=== PATIENT | female | born 1930 | race Caucasian/White ===

== ENCOUNTER 2016-07-09 04:44 | Inpatient (IN) | payer BC, OTHER ==
[2016-07-09] MEDS ORDERED: morphine CARPU-JECT 2 MG/1 ML DISP.SYRIN IVPUSH ONE ×2 (05:00→06:04)
--- NOTE | 2016-07-09 05:07 | PDOC ---
History of Present Illness <James Cast - Last Filed: 07/09/16 06:47> - General History Source: Patient, Parent(s), Spouse () Exam Limitations: No Limitations - History of Present Illness Initial Comments: 07/09/16 05:13 The patient is a 85 year old female with significant past medical history of a- fib, CAD, s/p cardiac stents x2, CHF, hypertension, hyperlipidemia, diabetes, and CKD (MWF) who presents to the ED BIBA from home with s/p unwitnessed mechanical fall just prior to arrival. Patient reports she was going to the bathroom when she fell and now has complaints of pain to the right shoulder and right leg. She denies hitting her head or LOC. As per , at bedside, patient normally ambulates with a walker, however she did not use her walker to go to the bathroom. Patient is on coumadin, but is not sure if she is still taking her coumadin. The patient denies fever, diaphoresis, lightheadedness, chills, cough, SOB, chest pain, and palpitations. The patient denies abdominal pain, nausea, vomiting, and diarrhea. Allergies: codeine Social History: No alcohol, tobacco, or drug use reported. Past Surgical History: cataract removal (bilaterally), cholecystectomy, appendectomy, s/p cardiac stents x2, hernia repair (umbilical x2), hysterectomy , joint replacement (right knee) PCP: Dr. Ashish Collazo Cardio: Dr. Abraham Oh <Julisa Fitzgerald - Last Filed: 07/09/16 06:50> - General Chief Complaint: Bone Injury Stated Complaint: FALL Time Seen by Provider: 07/09/16 04:50 Past History - Past Medical History Anemia: Yes Asthma: No Cancer: No Cardiac Disorders: Yes CVA: No CHF: Yes Dementia: No Diabetes: Yes GI Disorders: Yes (colitis) Disorders: No HTN: Yes Hypercholesterolemia: Yes Liver Disease: No Suicide Attempt (Hx): No Seizures: No Thyroid Disease: No - Surgical History Abdominal Surgery: Yes (UMBILICAL HERNIA REPAIR) Appendectomy: Yes Cardiac Surgery: Yes (x2 stents April 2014) Cholecystectomy: Yes Lung Surgery: No Neurologic Surgery: No Orthopedic Surgery: Yes (Right knee replacement) - Immunization History Immunization Up to Date: No - Psycho/Social/Smoking Cessation Hx Anxiety: No Suicidal Ideation: No Smoking Status: No Smoking History: Never smoked Have you smoked in the past 12 months: No Number of Cigarettes Smoked Daily: 0 Information on smoking cessation initiated: No Hx Alcohol Use: No Drug/Substance Use Hx: No Substance Use Type: None Hx Substance Use Treatment: No <James Cast - Last Filed: 07/09/16 06:47> <Julisa Fitzgerald - Last Filed: 07/09/16 06:50> - Past Medical History Allergies/Adverse Reactions: Allergies Allergy/AdvReac Type Severity Reaction Status Date / Time codeine AdvReac Verified 07/09/16 04:57 Home Medications: Ambulatory Orders Atorvastatin Calcium [Lipitor] 10 mg PO HS 08/25/12 Cholecalciferol (Vitamin D3) [Vitamin D] 1,000 unit PO DAILY 08/25/12 Iron 28 mg PO Q2D 08/14/15 Loratadine [Claritin -] 10 mg PO DAILY PRN 08/14/15 Levemir Flextouch 8 units SQ HS 11/01/15 Aspirin [Ecotrin] 81 mg PO DAILY 07/09/16 Furosemide [Lasix] 80 mg PO DAILY 07/09/16 Tramadol HCl 50 mg PO HS PRN 07/09/16 Review of Systems - Review of Systems Able to Perform ROS?: Yes Comments:: 07/09/16 05:14 +right shoulder pain and right leg pain Absent: fever, diaphoresis, lightheadedness, chills, cough, SOB, syncope, chest pain, palpitations, abdominal pain, nausea, vomiting, and diarrhea <Julisa Fitzgerald - Last Filed: 07/09/16 06:50> *Physical Exam - Vital Signs Last Vital Signs Temp Pulse Resp BP Pulse Ox 97.5 F L 121 H 14 141/81 98 07/09/16 04:53 07/09/16 04:53 07/09/16 04:53 07/09/16 04:53 07/09/16 04:53 - Physical Exam General Appearance: Yes: Nourished, Appropriately Dressed, Apparent Distress (2/ 2 pain) HEENT: positive: Normal ENT Inspection Neck: positive: Supple. negative: Tender Respiratory/Chest: positive: Lungs Clear, Normal Breath Sounds. negative: Respiratory Distress Cardiovascular: positive: Tachycardia, Irregularly Irregular Gastrointestinal/Abdominal: positive: Normal Bowel Sounds, Soft. negative: Tender Musculoskeletal: positive: Normal Inspection. negative: Vertebral Tenderness Extremity: positive: Normal Capillary Refill, Normal Inspection, Tender (rt humerus and rt hip. rt lower ext shortened and externally rotated). negative: Normal Range of Motion Integumentary: positive: Normal Color. negative: Ecchymosis, Bruising Neurologic: positive: Fully Oriented, Alert, Normal Mood/Affect, Normal Response <James Cast - Last Filed: 07/09/16 06:47> - Vital Signs Last Vital Signs Temp Pulse Resp BP Pulse Ox 97.5 F L 121 H 14 141/81 98 07/09/16 04:53 07/09/16 04:53 07/09/16 04:53 07/09/16 04:53 07/09/16 04:53 <Julisa Fitzgerald - Last Filed: 07/09/16 06:50> Heart Score/ECG Review - ECG Impressions Comment:: 07/09/16 06:14 A-fib with rapid ventricular response @115bpm Incomplete RBBB Left anterior fascicular block Anterior infarct, age undetermined Abnormal ECG <Julisa Fitzgerald - Last Filed: 07/09/16 06:50> ED Treatment Course - LABORATORY CBC & Chemistry Diagram: 07/09/16 05:01 07/09/16 05:01 <James Cast - Last Filed: 07/09/16 06:47> - LABORATORY CBC & Chemistry Diagram: 07/09/16 05:01 07/09/16 05:01 - RADIOLOGY Radiograph Interpretation: 07/09/16 06:49 HIP/PELVIS Reviewed by Dr. Tyler: Right hip fracture - Medications Given in the ED: ED Medications Discontinued Medications Generic Name Dose Route Start Last Admin Trade Name Freq PRN Reason Stop Dose Admin Morphine Sulfate 2 mg 07/09/16 05:00 07/09/16 05:07 Morphine Injection - IVPUSH 07/09/16 05:01 2 mg ONCE ONE Administration <Julisa Fitzgerald - Last Filed: 07/09/16 06:50> Progress Note - Progress Note Progress Note: likely mult fx's pain control xrays labs <James Cast - Last Filed: 07/09/16 06:47> Medical Decision Making - Medical Decision Making 07/09/16 06:[address] Jorge Alberto Friend (via answering service) at 6:04 Awaiting call back 07/09/16 06:[address] Ministerio Lozoya covering for Dr. Ashish Collazo (via answering service) at 6:07, 6:16 (was told they will page in a couple of minutes since it has not been 15 minutes since the last call), 6:40 Awaiting call back Patient's case discussed with Dr. Ministerio Lozoya at 6:45 <Julisa Fitzgerald - Last Filed: 07/09/16 06:50> *DC/Admit/Observation/Transfer - Discharge Dispostion Admit: Yes <James Cast - Last Filed: 07/09/16 06:47> - Attestations Scribe Attestion: 07/09/16 05:14 Documentation prepared by Julisa Fitzgerald, acting as medical billing clerk for James Cast MD <Julisa Fitzgerald - Last Filed: 07/09/16 06:50> Diagnosis at time of Disposition: Hip fracture Qualifiers: Encounter type: initial encounter Fracture type: closed Laterality: right Qualified Code(s): S72.001A - Fracture of unspecified part of neck of right femur, initial encounter for closed fracture - Discharge Dispostion Disposition: HOME - Referrals Referrals: Ashish Collazo MD [Primary Care Provider] -
[2016-07-09] MEDS ORDERED: SODIUM CHLORIDE 1,000 ML IV SCH (05:15)
[2016-07-09 05:36] LABS: BASOPHIL 0.7 % (0-2.0); EOSINOPHIL 0.4 % (0-4.5); MCH 33.4 pg (25.7-33.7); MCHC 32.6 g/dl (32.0-36.0); MEAN CELL VOLUME 102.6 fl (80-96); MEAN PLT VOLUME 8.6 fl (7.5-11.1); NEUTROPHILS 83.4 % (42.8-82.8); PLATELET COUNT 302 K/MM3 (134-434); RDW 15.2 % (11.6-15.6)
[2016-07-09 05:51] LABS: INR 1.11 (0.82-1.09); PROTHROMBIN TIME (PATIENT) 12.2 SEC (9.98-11.88)
[2016-07-09] MEDS ORDERED: morphine CARPU-JECT 2 MG/1 ML DISP.SYRIN ONE (05:55)
[2016-07-09 05:56] LABS: CREATININE 3.7 mg/dL (0.55-1.02)
[2016-07-09] MEDS ORDERED: HYDROmorphone HCL CARPU-JECT 1 MG/1 ML DISP.SYRIN IVPUSH ONE (07:14)
[2016-07-09] MEDS ORDERED: HYDROmorphone HCL CARPU-JECT 1 MG/1 ML DISP.SYRIN ONE (07:17)
[2016-07-09 09:08] VITALS: BMI 33.4
[2016-07-09] MEDS ORDERED: ONDANSETRON 4 MG/2 ML VIAL IVPB PRN (09:22)
[2016-07-09] MEDS ORDERED: ACETAMINOPHEN 325 MG TABLET (FP) PO PRN (09:22)
[2016-07-09] MEDS ORDERED: LORATADINE 10 MG TABLET PO PRN (09:22)
[2016-07-09] MEDS: FUROSEMIDE 40 MG TABLET (FP) PO SCH (10:28)
[2016-07-09] MEDS: HEPARIN NA (PORCINE) 5,000 UNITS/ML 1ML VIAL SQ SCH ×2 (10:28→17:27)
[2016-07-09] MEDS: DOCUSATE SODIUM 100 MG CAPSULE (FP) PO SCH ×2 (10:29→21:51)
[2016-07-09] MEDS: CHOLECALCIFEROL (VITAMIN D3) 1,000 UNIT TABLET (FP) PO SCH (10:29)
[2016-07-09] MEDS: HYDROmorphone HCL CARPU-JECT 1 MG/1 ML DISP.SYRIN IVPUSH PRN ×3 (10:29→23:17)
[2016-07-09] MEDS: POLYETHYLENE GLYCOL 3350 119 GM BTL PO SCH (11:12)
[2016-07-09] MEDS ORDERED: INSULIN (NOVOLOG) ASPART 100 UNITS/ML 10ML VIAL ONE ×3 (11:19→21:54)
[2016-07-09] MEDS: INSULIN SLIDING SCALE (NOVOLOG) 1 VIAL SQ SCH ×3 (11:20→21:57)
--- NOTE | 2016-07-09 11:30 | HP ---
Admitting History and Physical - Primary Care Physician PCP: Ashish Collazo - Admission Chief Complaint: I fell History of Present Illness: Mrs Mcdonnell is an 85 year old female who comes in after having a fall. She says she was in her normal state of health and was having no new complaints. She was up reading last night and went to use the restroom before going to bed. She normal ambulates with a walker for long distance but says she can walk from her bedroom to the bathroom without a walker. As she was walking she fell. She was not dizzy or lightheaded. She did not pass out. She did not trip over anything. She states she just fell and hit her right side. After the fall she had a lot of pain in both her right arm and her right leg. She came in for further evaluation. She denies hitting her head. She has not had chest pain. She is chronically short of breath on exertion and this has not worsened. She is not having abdominal pain, nausea, or vomiting. She denies constipation or diarrhea. She has chronic leg swelling which is also unchanged. She says her pain is better controlled but still present. History Source: Patient Limitations to Obtaining History: No Limitations - Past Medical History Cardiovascular: Yes: AFIB, CAD, CHF, HTN, Hyperlipdemia Pulmonary: Yes: Sleep Apnea Renal/: Yes: Renal Failure, Renal Inusuff Heme/Onc: Yes: Anemia Rheumatology: Yes: Gout Endocrine: Yes: Diabetes Mellitus - Past Surgical History Past Surgical History: Yes: Cataract Removal (bilaterally), Cholecystectomy, Hernia Repair (umbilical x2), Hysterectomy, Joint Replacement (rightj knee) - Advance Directives Advance Directives: Yes: Living Will - Smoking History Smoking history: Never smoked Have you smoked in the past 12 months: No Aproximately how many cigarettes per day: 0 - Alcohol/Substance Use Hx Alcohol Use: No History of Substance Use: reports: None - Social History Usual Living Arrangement: Yes: With Spouse ADL: Independent Occupation: former housewife, , 4 daughters History of Recent Travel: No Home Medications - Allergies Allergies/Adverse Reactions: Allergies Allergy/AdvReac Type Severity Reaction Status Date / Time codeine AdvReac Verified 07/09/16 04:57 - Home Medications Home Medications: Ambulatory Orders Atorvastatin Calcium [Lipitor] 10 mg PO HS 08/25/12 Cholecalciferol (Vitamin D3) [Vitamin D] 1,000 unit PO DAILY 08/25/12 Iron 28 mg PO Q2D 08/14/15 Loratadine [Claritin -] 10 mg PO DAILY PRN 08/14/15 Levemir Flextouch 8 units SQ HS 11/01/15 Aspirin [Ecotrin] 81 mg PO DAILY 07/09/16 Furosemide [Lasix] 80 mg PO DAILY 07/09/16 Tramadol HCl 50 mg PO HS PRN 07/09/16 Family Disease History - Family Disease History Family History: Unremarkable Review of Systems Findings/Remarks: Full review of systems obtained, as per HPI and otherwise negative Physical Examination Vital Signs: Vital Signs Temperature 97.3 F L 07/09/16 06:48 Pulse Rate 112 H 07/09/16 08:10 Respiratory Rate 19 07/09/16 08:10 Blood Pressure 128/100 07/09/16 08:10 O2 Sat by Pulse Oximetry (%) 97 07/09/16 08:10 Constitutional: Yes: No Distress, Calm, Obese Cardiovascular: Yes: Regular Rate and Rhythm. No: Gallop, Murmur, Rub Respiratory: Yes: Regular, CTA Bilaterally. No: Rales, Rhonchi, Wheezes Gastrointestinal: Yes: Normal Bowel Sounds, Distention. No: Tenderness Extremities: Yes: WNL Edema: Yes Edema: LLE: 1+, RLE: 1+ Labs: Laboratory Results - last 24 hr 07/09/16 07/09/16 07/09/16 05:01 05:01 05:01 WBC 15.0 H D RBC 3.87 Hgb 12.9 D Hct 39.7 D MCV 102.6 H MCHC 32.6 RDW 15.2 D Plt Count 302 D MPV 8.6 Neutrophils % 83.4 H Lymphocytes % 8.9 D Monocytes % 6.6 Eosinophils % 0.4 D Basophils % 0.7 INR 1.11 Sodium 132 L Potassium 5.2 H Chloride 93 L Carbon Dioxide 24 Anion Gap 15 BUN 25 H D Creatinine 3.7 H POC Glucometer Random Glucose 228 H D Calcium 9.0 07/09/16 11:15 WBC RBC Hgb Hct MCV MCHC RDW Plt Count MPV Neutrophils % Lymphocytes % Monocytes % Eosinophils % Basophils % INR Sodium Potassium Chloride Carbon Dioxide Anion Gap BUN Creatinine POC Glucometer 191 Random Glucose Calcium Imaging - Results Chest X-ray: Report Reviewed, Image Reviewed X-ray: Report Reviewed Problem List - Problems (1) Hip fracture Assessment/Plan: -patient with mechanical fall and hip fracture -no head trauma or passing out -case d/w nephrology, will have short dialysis today -cardiology to see for clearance -medically stable for surgery -ortho consulted Code(s): S72.009A - FRACTURE OF UNSP PART OF NECK OF UNSP FEMUR, INIT Qualifiers: Encounter type: initial encounter Fracture type: closed Laterality : right Qualified Code(s): S72.001A - Fracture of unspecified part of neck of right femur, initial encounter for closed fracture (2) (HFpEF) heart failure with preserved ejection fraction Assessment/Plan: -continue lasix -chronic leg edema unchanged -chest x-ray clear -HD today Code(s): I50.9 - HEART FAILURE, UNSPECIFIED (3) Bilateral leg edema Assessment/Plan: -stable Code(s): R60.0 - LOCALIZED EDEMA (4) Diabetes Assessment/Plan: -currently npo -when eating, diabetic/renal diet -continue SSI Code(s): E11.9 - TYPE 2 DIABETES MELLITUS WITHOUT COMPLICATIONS (5) HTN (hypertension) Assessment/Plan: -well controlled -continue lasix Code(s): I10 - ESSENTIAL (PRIMARY) HYPERTENSION (6) Hyperkalemia Assessment/Plan: -planning for HD -nephrology following Code(s): E87.5 - HYPERKALEMIA (7) End stage renal failure on dialysis Assessment/Plan: -continue HD per nephrology Code(s): N18.6 - END STAGE RENAL DISEASE Z99.2 - DEPENDENCE ON RENAL DIALYSIS (8) Obesity Code(s): E66.9 - OBESITY, UNSPECIFIED Qualifiers: Obesity severity: morbid
--- NOTE | 2016-07-09 11:43 | CONSULT ---
Consult - text type - Consultation Consultation Note: Renal Consult for ESRD This is a 85 year old woman with PMhx of ESRD on HD (MWF), Afib on A/C, HTN, CAD s/p stents, CHF, DM who presented s/p fall with multiple fractures. Pt states that she was trying to walk without her walker at home when she tripped and fell. Denies any LOC, dizziness, lightheadedness. No chest pain or sob. Last dialysis was Friday w/o complication. Currently reports pain in arm and LE. No fever or chills. K noted to 5.2 today despite dialysis yesterday. PMhx:as above Allergies: NKDA Family Hx: NC Social Hx: No T/A/D ROS: As per HPI, all other pertinent ros negative Home Meds: Medication Instructions Recorded Atorvastatin Calcium [Lipitor] 10 mg PO HS 08/25/12 Cholecalciferol (Vitamin D3) 1,000 unit PO DAILY 08/25/12 [Vitamin D] Iron 28 mg PO Q2D 08/14/15 Loratadine [Claritin -] 10 mg PO DAILY PRN 08/14/15 Levemir Flextouch 8 units SQ HS 11/01/15 Aspirin [Ecotrin] 81 mg PO DAILY 07/09/16 Furosemide [Lasix] 80 mg PO DAILY 07/09/16 Tramadol HCl 50 mg PO HS PRN 07/09/16 Vital Signs Temperature 98 F 07/09/16 19:05 Pulse Rate 101 H 07/09/16 19:05 Respiratory Rate 21 07/09/16 19:05 Blood Pressure 125/64 07/09/16 19:05 O2 Sat by Pulse Oximetry (%) 97 07/09/16 09:48 Gen: NAD, awake and alert HEENT: NC/AT, MMM, No JVD CVS: irregular, no M/R Lungs: Dec BS Lung bases, no rales Abd: soft NT/ND Ext: Trace to 1+ edema in LE Neuro: AAOX3, no focal defects Access: Left ARM AVF CBC, BMP 07/09/16 05:01 07/09/16 05:01 Current Medications Acetaminophen (Tylenol -) 650 mg PO Q4H PRN PRN Reason: FEVER OR PAIN Atorvastatin Calcium (Lipitor -) 10 mg PO HS [facility] Last Admin: 07/09/16 21:51 Dose: 10 mg Cholecalciferol (Vitamin D3 -) 1,000 unit PO DAILY [facility] Last Admin: 07/09/16 10:29 Dose: 1,000 unit Docusate Sodium (Colace -) 100 mg PO BID [facility] Last Admin: 07/09/16 21:51 Dose: 100 mg Furosemide (Lasix -) 80 mg PO DAILY [facility] Last Admin: 07/09/16 10:28 Dose: 80 mg Heparin Sodium (Porcine) (Heparin -) 5,000 unit SQ Q8H-IV [facility] Last Admin: 07/09/16 17:27 Dose: 5,000 unit Hydromorphone HCl (Dilaudid Injection -) 1 mg IVPUSH Q4H PRN PRN Reason: PAIN Last Admin: 07/09/16 14:24 Dose: 1 mg Insulin Aspart (Novolog Vial Sliding Scale -) 0 vial SQ ACHS DREW PRN Reason: Protocol Last Admin: 07/09/16 21:57 Dose: 3 unit Loratadine (Claritin -) 10 mg PO DAILY PRN PRN Reason: allergy Ondansetron HCl (Zofran Injection) 4 mg IVPB Q6H PRN PRN Reason: NAUSEA Polyethylene Glycol (Miralax (For Daily Use) -) 17 gm PO DAILY [facility] Last Admin: 07/09/16 11:12 Dose: Not Given A/P 85 year old woman with PMhx of ESRD on HD (MWF), Afib on A/C, HTN, CAD s/p stents, CHF, DM who presented s/p fall with multiple fractures. #Intertrochanteric hip fx/Humerus Fracture Surgical intervention as per Ortho Pain control #ESRD on HD Additional HD today to manage K and Volume status in aticipation of surgery Will plan for additional HD following Sx tomorrow depending on time of suregery and clinical need #CKD Related Anemia Hgb at goal Trend CBC post Sx #CHF/CAD/Afib Pt with mild volume expansion UF with HD as tolerated Pre-surgical clearance as per cardiology Thank you Will follow Massimo Shepard DO a-fib, CAD, s/p cardiac stents x2, CHF, hypertension, hyperlipidemia, diabetes, and CKD (MWF)
--- NOTE | 2016-07-09 11:53 | CON.CARD ---
Cardiology Consult (text) - Consultation Consultation Note: CC: Pre-operative clearance HPI: 85 yo with CAD s/p AZUL to RCA '14, Afib on eliquis, dCHF, HTN, HL, IDDM, GEORGE declines CPAP and CKD on HD who presents s/p fall c/b hip fracture. Per report, unwitnessed mechanical fall while not using walker. She denied hitting her head or LOC. No h/o CVA/TIA, Cannot walk up a flight of stairs. chronic LE stable No orthopnea, pnd, cp, sob, palps, dizziness, bleeding, transient neurologic symptoms. PMHx: Per HPI, Psurg Hx: Cataract Removal (bilaterally), Cholecystectomy, Hernia Repair ( umbilical x2), Hysterectomy, Joint Replacement (right knee) Social hx: NO alcohol or illicits. Not using tobacco. Fam Hx: uncle with sCD. ROS: Per HPI. Additionally, no n/v/d, no headache, no fever/chills/sweats, no bleeding. no cough + chronic LE erythema. Ambulatory Orders Atorvastatin Calcium [Lipitor] 10 mg PO HS 08/25/12 Cholecalciferol (Vitamin D3) [Vitamin D] 1,000 unit PO DAILY 08/25/12 Iron 28 mg PO Q2D 08/14/15 Loratadine [Claritin -] 10 mg PO DAILY PRN 08/14/15 Levemir Flextouch 8 units SQ HS 11/01/15 Aspirin [Ecotrin] 81 mg PO DAILY 07/09/16 Furosemide [Lasix] 80 mg PO DAILY 07/09/16 Tramadol HCl 50 mg PO HS PRN 07/09/16 Current Medications Acetaminophen (Tylenol -) 650 mg PO Q4H PRN PRN Reason: FEVER OR PAIN Atorvastatin Calcium (Lipitor -) 10 mg PO HS [facility] Cholecalciferol (Vitamin D3 -) 1,000 unit PO DAILY [facility] Last Admin: 07/09/16 10:29 Dose: 1,000 unit Docusate Sodium (Colace -) 100 mg PO BID [facility] Last Admin: 07/09/16 10:29 Dose: 100 mg Furosemide (Lasix -) 80 mg PO DAILY [facility] Last Admin: 07/09/16 10:28 Dose: 80 mg Heparin Sodium (Porcine) (Heparin -) 5,000 unit SQ Q8H-IV [facility] Last Admin: 07/09/16 10:28 Dose: 5,000 unit Hydromorphone HCl (Dilaudid Injection -) 1 mg IVPUSH Q4H PRN PRN Reason: PAIN Last Admin: 07/09/16 10:29 Dose: 1 mg Insulin Aspart (Novolog Vial Sliding Scale -) 0 vial SQ ACHS DREW PRN Reason: Protocol Last Admin: 07/09/16 11:20 Dose: 1 unit Loratadine (Claritin -) 10 mg PO DAILY PRN PRN Reason: allergy Ondansetron HCl (Zofran Injection) 4 mg IVPB Q6H PRN PRN Reason: NAUSEA Polyethylene Glycol (Miralax (For Daily Use) -) 17 gm PO DAILY [facility] Last Admin: 07/09/16 11:12 Dose: Not Given Vital Signs - 24 hr 07/09/16 07/09/16 07/09/16 04:53 06:15 08:10 Temperature 97.5 F L Pulse Rate 121 H Pulse Rate [ 112 H Right Radial] Respiratory 14 19 Rate Blood Pressure 141/81 Blood Pressure 128/100 [Left Arm] O2 Sat by Pulse 98 99 97 Oximetry (%) 07/09/16 09:48 Temperature 97.3 F L Pulse Rate 110 H Pulse Rate [ Right Radial] Respiratory 20 Rate Blood Pressure 127/82 Blood Pressure [Left Arm] O2 Sat by Pulse 97 Oximetry (%) Intake & Output 07/07/16 07/08/16 07/09/16 07/10/16 07:59 07:59 07:59 07:59 Weight 188 lb 11.2 oz NAD. calm JVD difficult to assess due to neck habitus, but does not appear elevated RRR nl S1 S2. No S3, S4 or mrg No carotid bruits Trace bibasilar rales, nl effort + BS, soft, obese, ND, NT Diminished DP/PT erythematous/indurated Venous stasis changes with trace -1+ LE edema, warm ext No jaundic, no diaphoresis. CBC, BMP 07/09/16 05:01 07/09/16 05:01 EKG: afib 115 bpm. LAD. LAFB. incomplete RBBB. poor r wave progression. echo 60057: nl lv/rv. mild lae. valves wnl. no rvsp. A/p 85 yo with CAD s/p AZUL to RCA '14, Afib on eliquis, dCHF, HTN, HL, IDDM, GEORGE declines CPAP and CKD on HD who presents s/p fall c/b hip fracture. Pre-operative clearance - Stable from CV perspective, no further testing needed prior to surgery. High risk for scott-operative CV complications based on RCRI and poor functional status. Patient counseled on risk. If proceeds with surgery recommend close scott-operative monitoring. Limit IVF. Ok to hold AC without bridging. CAD s/p AZUL to RCA in 03/2014 - on statin. not on ASA b/c of hi risk gib and on AC. - no anginal symptoms. Afib - off AV alexandr blockade in setting of profound bradycardia 2/2 hyperkalemia. HR currently mildly elevated. If remains elevated and need to consider rate control will need telemetry monitoring . Pain control per pmd/surgery. - holding eliquis for possible surgery. - hyperkalemia mgm't per renal HFPEF, chronic venous insuff: - management of volume per renal/HD. Con't lasix HTN - BP controlled off anti-hypertensives HL: - statin ESRD on HD/hyperkalemia - volume mgm't with HD per renal. GEORGE on CPAP - stable
--- NOTE | 2016-07-09 14:41 | PN ---
Progress Note (short form) - Note Progress Note: Pt seen, getting dialysis, s/p fall this morning, cannot ambulate, c/o pain right hip. PE RLE is shortened and externally rotated NVI Limited ROM bc of pain Xrays Show a displaced 3/4 part right femur intertrochanteric hip fx Imp R IT fx Rec Medical clearance NPO after midnight tonight Surgery tomorrow if cleared, R Gamma nail
[2016-07-09] MEDS ORDERED: ATORVASTATIN CA 10 MG TABLET (FP) PO SCH (22:00)
--- NOTE | 2016-07-09 23:20 | EKG ---
Test Reason : Blood Pressure : / mmHG Vent. Rate : 115 BPM Atrial Rate : 110 BPM P-R Int : 000 ms QRS Dur : 118 ms QT Int : 354 ms P-R-T Axes : 000 -83 020 degrees QTc Int : 489 ms ATRIAL FIBRILLATION WITH RAPID VENTRICULAR RESPONSE INCOMPLETE RIGHT BUNDLE BRANCH BLOCK LEFT ANTERIOR FASCICULAR BLOCK POOR R WAVE PROGRESSION ABNORMAL ECG WHEN COMPARED WITH ECG OF 15-AUG-2015 08:34, VENT. RATE HAS INCREASED BY 55 BPM T WAVE VARIATION Confirmed by ADRIAN GALDAMEZ MD ([id number]) on 07/09/2016 11:19:49 PM Referred By: Confirmed By:ADRIAN GALDAMEZ MD
[2016-07-10] MEDS: HEPARIN NA (PORCINE) 5,000 UNITS/ML 1ML VIAL SQ SCH ×2 (02:51→10:00)
[2016-07-10] MEDS: HYDROmorphone HCL CARPU-JECT 1 MG/1 ML DISP.SYRIN IVPUSH PRN ×2 (06:15→10:14)
[2016-07-10] MEDS: INSULIN SLIDING SCALE (NOVOLOG) 1 VIAL SQ SCH ×4 (06:26→22:02)
[2016-07-10 08:10] LABS: WHITE BLOOD COUNT 12.6 K/mm3 (4.0-10.0)
[2016-07-10 08:11] LABS: BASOPHIL 0.7 % (0-2.0); EOSINOPHIL 0.8 % (0-4.5); MCH 34.1 pg (25.7-33.7); MCHC 32.7 g/dl (32.0-36.0); MEAN CELL VOLUME 104.3 fl (80-96); MEAN PLT VOLUME 8.4 fl (7.5-11.1); NEUTROPHILS 77.5 % (42.8-82.8); PLATELET COUNT 242 K/MM3 (134-434)
[2016-07-10 08:23] LABS: INR 1.18 (0.82-1.09)
[2016-07-10 09:13] LABS: CALCIUM 9.2 mg/dL (8.5-10.1); CREATININE 3.2 mg/dL (0.55-1.02); MAGNESIUM 1.8 mg/dL (1.8-2.4); PHOSPHOROUS 4.7 mg/dL (2.5-4.9)
[2016-07-10] MEDS: FUROSEMIDE 40 MG TABLET (FP) PO SCH (10:00)
[2016-07-10] MEDS: CHOLECALCIFEROL (VITAMIN D3) 1,000 UNIT TABLET (FP) PO SCH (10:00)
[2016-07-10] MEDS: POLYETHYLENE GLYCOL 3350 119 GM BTL PO SCH (10:00)
[2016-07-10] MEDS: DOCUSATE SODIUM 100 MG CAPSULE (FP) PO SCH ×2 (10:00→22:02)
--- NOTE | 2016-07-10 11:36 | PN ---
Progress Note (short form) - Note Progress Note: Renal Follow up for ESRD on HD Pt seen and examined at the bedside s/p short dialysis yesterday with UF of 1 kg for OR today K is 5.2 pt without any acute complaints Vital Signs Temperature 97.4 F L 07/10/16 09:34 Pulse Rate 100 H 07/10/16 09:34 Respiratory Rate 20 07/10/16 09:34 Blood Pressure 134/53 07/10/16 09:34 O2 Sat by Pulse Oximetry (%) 98 07/10/16 09:00 Intake & Output 07/07/16 07/08/16 07/09/16 07/10/16 23:59 23:59 23:59 23:59 Intake Total 100 0 Output Total 0 Balance 100 0 Weight 188 lb 11.2 oz 186 lb Gen: NAD, awake and alert CVS: irregular, no M/R Lungs: Dec BS Lung bases, no rales Abd: soft NT/ND Ext: Trace to 1+ edema in LE Access: Left ARM AVF CBC, BMP 07/10/16 07:40 07/10/16 07:40 Current Medications Acetaminophen (Tylenol -) 650 mg PO Q4H PRN PRN Reason: FEVER OR PAIN Atorvastatin Calcium (Lipitor -) 10 mg PO HS [facility] Last Admin: 07/09/16 21:51 Dose: 10 mg Cholecalciferol (Vitamin D3 -) 1,[address] [facility] Last Admin: 07/10/16 10:00 Dose: Not Given Docusate Sodium (Colace -) 100 mg PO BID [facility] Last Admin: 07/10/16 10:00 Dose: Not Given Furosemide (Lasix -) 80 mg PO DAILY [facility] Last Admin: 07/10/16 10:00 Dose: Not Given Heparin Sodium (Porcine) (Heparin -) 5,000 unit SQ Q8H-IV [facility] Last Admin: 07/10/16 10:00 Dose: Not Given Hydromorphone HCl (Dilaudid Injection -) 1 mg IVPUSH Q4H PRN PRN Reason: PAIN Last Admin: 07/10/16 10:14 Dose: 1 mg Insulin Aspart (Novolog Vial Sliding Scale -) 0 vial SQ ACHS DREW PRN Reason: Protocol Last Admin: 07/10/16 11:23 Dose: Not Given Loratadine (Claritin -) 10 mg PO DAILY PRN PRN Reason: allergy Ondansetron HCl (Zofran Injection) 4 mg IVPB Q6H PRN PRN Reason: NAUSEA Polyethylene Glycol (Miralax (For Daily Use) -) 17 gm PO DAILY [facility] Last Admin: 07/10/16 10:00 Dose: Not Given A/P 85 year old woman with PMhx of ESRD on HD (MWF), Afib on A/C, HTN, CAD s/p stents, CHF, DM who presented s/p fall with multiple fractures. #Intertrochanteric hip fx/Humerus Fracture Surgical intervention as per Ortho Pain control #ESRD on HD Will arrange for short Hd today for furhter management of mild hyperkalemia UF 1-1.5L as tolerated #CKD Related Anemia Hgb at goal Trend CBC post Sx Massimo Melissa DO
--- NOTE | 2016-07-10 12:29 | PN ---
Progress Note, Physician Chief Complaint: Ms Mcdonnell is still with pain in her right arm and leg. Otherwise she is without complaint. She denies cp, sob, n/v. - Current Medication List Current Medications: Active Medications Acetaminophen (Tylenol -) 650 mg PO Q4H PRN PRN Reason: FEVER OR PAIN Atorvastatin Calcium (Lipitor -) 10 mg PO HS [facility] Last Admin: 07/09/16 21:51 Dose: 10 mg Cholecalciferol (Vitamin D3 -) 1,000 unit PO DAILY [facility] Last Admin: 07/10/16 10:00 Dose: Not Given Docusate Sodium (Colace -) 100 mg PO BID [facility] Last Admin: 07/10/16 10:00 Dose: Not Given Furosemide (Lasix -) 80 mg PO DAILY [facility] Last Admin: 07/10/16 10:00 Dose: Not Given Heparin Sodium (Porcine) (Heparin -) 5,000 unit SQ Q8H-IV [facility] Last Admin: 07/10/16 10:00 Dose: Not Given Hydromorphone HCl (Dilaudid Injection -) 1 mg IVPUSH Q4H PRN PRN Reason: PAIN Last Admin: 07/10/16 10:14 Dose: 1 mg Insulin Aspart (Novolog Vial Sliding Scale -) 0 vial SQ ACHS DREW PRN Reason: Protocol Last Admin: 07/10/16 11:23 Dose: Not Given Loratadine (Claritin -) 10 mg PO DAILY PRN PRN Reason: allergy Ondansetron HCl (Zofran Injection) 4 mg IVPB Q6H PRN PRN Reason: NAUSEA Polyethylene Glycol (Miralax (For Daily Use) -) 17 gm PO DAILY [facility] Last Admin: 07/10/16 10:00 Dose: Not Given - Objective Vital Signs: Vital Signs Temperature 97.4 F L 07/10/16 09:34 Pulse Rate 95 H 07/10/16 11:20 Respiratory Rate 18 07/10/16 11:20 Blood Pressure 97/60 07/10/16 11:20 O2 Sat by Pulse Oximetry (%) 98 07/10/16 09:00 Constitutional: Yes: No Distress, Calm, Obese Cardiovascular: Yes: Regular Rate and Rhythm. No: Gallop, Murmur, Rub Respiratory: Yes: Regular, CTA Bilaterally. No: Rales, Rhonchi, Wheezes Gastrointestinal: Yes: Normal Bowel Sounds, Distention. No: Tenderness Extremities: Yes: WNL Edema: Yes Edema: LLE: 1+, RLE: 1+ Labs: CBC, BMP 07/10/16 07:40 07/10/16 07:40 INR, PTT INR 1.18 (0.82-1.09) H 07/10/16 07:40 Problem List - Problems (1) Hip fracture Code(s): S72.009A - FRACTURE OF UNSP PART OF NECK OF UNSP FEMUR, INIT Qualifiers: Encounter type: initial encounter Fracture type: closed Laterality : right Qualified Code(s): S72.001A - Fracture of unspecified part of neck of right femur, initial encounter for closed fracture (2) (HFpEF) heart failure with preserved ejection fraction Code(s): I50.9 - HEART FAILURE, UNSPECIFIED (3) Bilateral leg edema Code(s): R60.0 - LOCALIZED EDEMA (4) Diabetes Code(s): E11.9 - TYPE 2 DIABETES MELLITUS WITHOUT COMPLICATIONS (5) HTN (hypertension) Code(s): I10 - ESSENTIAL (PRIMARY) HYPERTENSION (6) Hyperkalemia Code(s): E87.5 - HYPERKALEMIA (7) End stage renal failure on dialysis Code(s): N18.6 - END STAGE RENAL DISEASE Z99.2 - DEPENDENCE ON RENAL DIALYSIS (8) Obesity Code(s): E66.9 - OBESITY, UNSPECIFIED Qualifiers: Obesity severity: morbid Assessment/Plan (1) Hip fracture Assessment/Plan: -planning for surgery today Code(s): S72.009A - FRACTURE OF UNSP PART OF NECK OF UNSP FEMUR, INIT Qualifiers: Encounter type: initial encounter Fracture type: closed Laterality : right Qualified Code(s): S72.001A - Fracture of unspecified part of neck of right femur, initial encounter for closed fracture (2) (HFpEF) heart failure with preserved ejection fraction Assessment/Plan: -continue lasix -chronic leg edema unchanged -chest x-ray clear -HD today Code(s): I50.9 - HEART FAILURE, UNSPECIFIED (3) Bilateral leg edema Assessment/Plan: -stable Code(s): R60.0 - LOCALIZED EDEMA (4) Diabetes Assessment/Plan: -currently npo -when eating, diabetic/renal diet -continue SSI Code(s): E11.9 - TYPE 2 DIABETES MELLITUS WITHOUT COMPLICATIONS (5) HTN (hypertension) Assessment/Plan: -well controlled -continue lasix Code(s): I10 - ESSENTIAL (PRIMARY) HYPERTENSION (6) Hyperkalemia Assessment/Plan: -having HD today to optimize for surgery -nephrology following and case discussed Code(s): E87.5 - HYPERKALEMIA (7) End stage renal failure on dialysis Assessment/Plan: -continue HD per nephrology Code(s): N18.6 - END STAGE RENAL DISEASE Z99.2 - DEPENDENCE ON RENAL DIALYSIS (8) Obesity Code(s): E66.9 - OBESITY, UNSPECIFIED Qualifiers: Obesity severity: morbid
[2016-07-10] MEDS ORDERED: MIDAZOLAM HCL 2 MG/2 ML SINGLE DOSE VIAL ONE (14:47)
[2016-07-10] MEDS ORDERED: LACTATED RINGERS SOLUTION 1,000 ML IV SCH ×3 (15:00→19:30)
[2016-07-10] MEDS ORDERED: PROPOFOL 20 ML ONE (15:21)
[2016-07-10] MEDS ORDERED: ceFAZolin SODIUM 1 GM VIAL ONE (15:32)
[2016-07-10] MEDS ORDERED: ceFAZolin SODIUM 1 GM VIAL IVPB ONE (15:35)
[2016-07-10] MEDS ORDERED: ONDANSETRON 4 MG/2 ML VIAL ONE (16:05)
--- NOTE | 2016-07-10 16:13 | OP ---
Operative Note - Note: Operative Date: 07/10/16 Pre-Operative Diagnosis: right femur intertrochanteric fracture Operation: right Gamma nail, intramedullary nail Implants: Mooes Gamma 3 Titanium IM elisa, 85mm lag screw, 37.5mm set screw Surgeon: Jorge Alberto Friend Sheet Metal Duct Installer Apprentice: London Wood Anesthesiologist/SUPPLIER ENGINEER: Yanet Vieira Anesthesia: General Estimated Blood Loss (mls): 25 Drains, Volume Out (mls): 0 Blood Volume Replaced (mls): 0 Fluid Volume Replaced (mls): 500 Operative Report Dictated: Yes
[2016-07-10] MEDS ORDERED: LORATADINE 10 MG TABLET PO PRN (16:54)
[2016-07-10] MEDS ORDERED: HYDROmorphone HCL CARPU-JECT 1 MG/1 ML DISP.SYRIN IVPUSH PRN (16:54)
[2016-07-10] MEDS: HYDROmorphone HCL CARPU-JECT 1 MG/1 ML DISP.SYRIN IVPB PRN ×2 (18:02→22:59)
[2016-07-10] MEDS: CEFAZOLIN 2 GM/D5W 50 ML IVPB SCH (18:20)
[2016-07-10] MEDS: ATORVASTATIN CA 10 MG TABLET (FP) PO SCH (22:02)
[2016-07-10] MEDS ORDERED: INSULIN (NOVOLOG) ASPART 100 UNITS/ML 10ML VIAL ONE (22:46)
[2016-07-10] MEDS ORDERED: CEFAZOLIN 2 GM/D5W 50 ML IVPB SCH (23:00)
[2016-07-11 00:08] LABS: HEP B SURFACE AB Non Reactive (.)
[2016-07-11] MEDS: CEFAZOLIN 2 GM/D5W 50 ML IVPB SCH ×2 (04:27→09:36)
[2016-07-11] MEDS: INSULIN SLIDING SCALE (NOVOLOG) 1 VIAL SQ SCH ×4 (06:29→21:25)
[2016-07-11 08:21] LABS: BASOPHIL 1.2 % (0-2.0); EOSINOPHIL 0.4 % (0-4.5); MCHC 32.9 g/dl (32.0-36.0); MEAN CELL VOLUME 103.4 fl (80-96); MEAN PLT VOLUME 8.4 fl (7.5-11.1); NEUTROPHILS 78.5 % (42.8-82.8); PLATELET COUNT 203 K/MM3 (134-434); RDW 14.6 % (11.6-15.6); WHITE BLOOD COUNT 13.3 K/mm3 (4.0-10.0)
[2016-07-11 08:39] LABS: CALCIUM 8.8 mg/dL (8.5-10.1); CREATININE 3.4 mg/dL (0.55-1.02); MAGNESIUM 1.7 mg/dL (1.8-2.4); PHOSPHOROUS 4.6 mg/dL (2.5-4.9)
--- NOTE | 2016-07-11 08:40 | OP ---
DATE OF OPERATION: 07/10/2016 PREOPERATIVE DIAGNOSIS: Right hip intertrochanteric fracture. POSTOPERATIVE DIAGNOSIS: Right hip intertrochanteric fracture. PROCEDURE: Right hip Gamma nail/intramedullary elisa. SURGEON: Jason Garcia MD TISSUE SPECIALIST: SATISH Chavez ANESTHESIOLOGIST: Yanet Vieira DO ANESTHESIA: LMA. DRAINS: None. COMPLICATIONS: None. BLOOD LOSS: Minimal. BLOOD GIVEN: None. FLUID REPLACEMENT: 500 mL. INDICATIONS: This patient is an 85-year-old female who sustained a right hip displaced intertrochanteric femur fracture. After understanding the potential risks, complications, alternatives, and benefits of surgery versus nonsurgical treatment, and after medical clearance, she has elected to go forward with surgery. DESCRIPTION OF PROCEDURE: The patient was brought to the operating room, peripheral IV placed and intravenous sedation given. IV Ancef 1 g was given. She did receive dialysis today. She had Webril placement on both ankles. This was the perineal post. She was put on the fracture table in standard position. Longitudinal traction and internal rotation was applied, x-rays were taken, and manipulation of the lower extremity was done until we got good reduction in both AP and lateral planes. The right lower extremity was then prepped and draped with a shower curtain in sterile fashion. Under direct C-arm fluoroscopy guidance, a 4-inch incision was made over the greater trochanter of the right hip. Bovie cautery was used for hemostasis. Dissection was done through the adipose layers as well as the lateral fascia. Larry elevator used to clear a starting point in the upper portion of the greater trochanter. Next, the guidewire was threaded down through the greater trochanter to the medullary canal. It was documented to be in excellent position in the AP and lateral planes. Next, we overdrilled with the proximal reamer and then put on in a cannulating fashion a standard Moose titanium Gamma 3 right hip short intramedullary elisa. X-rays were taken throughout, and then using the standard technique using the external jig, an 85-mm lag screw was placed, locked in place with a proximal set screw after compression across the fracture site was achieved, and a 37.5-mm distal interlocking screw was placed to lock it in place distally. Multiple x-rays were taken in the AP and lateral planes. All incisions were copiously irrigated and washed out. The deep fascia closed with 0 Vicryl suture. The deep adipose layer closed with 0 Vicryl, the deep dermal layer closed with 2-0 Vicryl suture, and final skin reapproximation was done with geovanni throughout. The area was then washed and dried, covered with Aquacel, and she was taken down off the fracture table in stable condition. Total operative time was about 25 minutes. There were no complications during the case. The patient tolerated the procedure quite well and was brought to the regular recovery room in stable condition. Blood loss was minimal. It was really only fracture hematoma. JASON GARCIA M.D. [id number]
[2016-07-11] MEDS ORDERED: PT OWN MED DRAWER 7, Y5N ONE (09:29)
[2016-07-11] MEDS: DOCUSATE SODIUM 100 MG CAPSULE (FP) PO SCH ×2 (09:36→21:17)
[2016-07-11] MEDS: FUROSEMIDE 40 MG TABLET (FP) PO SCH (09:37)
[2016-07-11] MEDS: CHOLECALCIFEROL (VITAMIN D3) 1,000 UNIT TABLET (FP) PO SCH (09:37)
[2016-07-11] MEDS: HYDROmorphone HCL CARPU-JECT 1 MG/1 ML DISP.SYRIN IVPB PRN ×3 (09:37→21:16)
[2016-07-11] MEDS: POLYETHYLENE GLYCOL 3350 119 GM BTL PO SCH (09:48)
--- NOTE | 2016-07-11 10:13 | PN ---
Progress Note (short form) - Note Progress Note: Pt seen, doing well on POD #1 s/p Right Gamma nail. C/O min-mod pain. AVSS H/H stable RLE is NVI Dressing CDI Good ROM throughout. Also with distal humerus fracture, in shoulder immobilizer. RUE NVI, good ROM at the elbow distal. Overall doing well. NWB RUE PWB RLE DC planning, SNF?
--- NOTE | 2016-07-11 11:00 | PN ---
Progress Note (short form) - Note Progress Note: s: s/p hip surgery, mild pain but doing well; no cp sob palps dizzy o: Vital Signs Period Temp Pulse Resp BP Sys/Adams Pulse Ox Last 24 Hr 97.3 F-98.6 F 74-123 12-21 94-135/45-98 96-100 NAD. calm JVD difficult to assess due to neck habitus, but does not appear elevated RRR nl S1 S2. No S3, S4 or mrg cta bl, nl effort + BS, soft, obese, ND, NT erythematous/indurated Venous stasis changes with trace LE edema, warm ext No jaundice, no diaphoresis. aaox3 Current Medications Generic Name Dose Route Start Last Admin Trade Name Freq PRN Reason Stop Dose Admin Acetaminophen 650 mg 07/10/16 16:54 Tylenol - PO Q4H PRN FEVER OR PAIN Atorvastatin Calcium 10 mg 07/10/16 22:00 07/10/16 22:02 Lipitor - PO 10 mg HS DREW Administration Cholecalciferol 1,000 unit 07/11/16 10:00 07/11/16 09:37 Vitamin D3 - PO 1,000 unit DAILY [facility] Administration Docusate Sodium 100 mg 07/10/16 22:00 07/11/16 09:36 Colace - PO 100 mg BID [facility]W Administration Enoxaparin Sodium 30 mg 07/11/16 14:00 Lovenox - SQ DAILY D[facility]W Fentanyl 50 mcg 07/10/16 16:40 07/10/16 16:53 Sublimaze Injection - IVPUSH 07/13/16 16:41 25 mcg [id number] PRN Administration PAIN Furosemide 80 mg 07/11/16 10:00 07/11/16 09:37 Lasix - PO 80 mg DAILY [facility] Administration Hydromorphone HCl 1 mg 07/10/16 17:14 07/11/16 09:37 Dilaudid Injection - IVPB 1 mg Q4H PRN Administration PAIN Cefazolin Sodium/Dextrose 50 mls @ 100 mls/hr 07/10/16 18:00 07/11/16 09:36 Ancef 2 Gm Premixed Ivpb - IVPB 07/11/16 17:59 100 mls/hr Q8H-IV [facility] Administration Protocol Lactated Ringer's 1,000 mls @ 42 mls/hr 07/10/16 19:30 02/02/17 09:48 Lactated Ringers Solution IV 42 mls/hr ASDIR DREW Administration Insulin Aspart 1 vial 07/10/16 22:00 07/11/16 06:29 Novolog Vial Sliding Scale - SQ 1 units ACHS DREW Administration Protocol Loratadine 10 mg 07/10/16 16:54 Claritin - PO DAILY PRN allergy Ondansetron HCl 4 mg 07/10/16 16:54 Zofran Injection IVPB Q6H PRN NAUSEA Polyethylene Glycol 17 gm 07/11/16 10:00 07/11/16 09:48 Miralax (For Daily Use) - PO Not Given DAILY DREW EKG: afib 115 bpm. LAD. LAFB. incomplete RBBB. poor r wave progression. echo 08/2015: nl lv/rv. mild lae. valves wnl. no rvsp. A/p 85 yo with CAD s/p AZUL to RCA '14, Afib on eliquis, dCHF, HTN, HL, IDDM, GEORGE declines CPAP and CKD on HD who presents s/p fall c/b hip fracture. CAD s/p AZUL to RCA in 03/2014 - on statin. not on ASA b/c of hi risk gib and on AC. - stable, no anginal symptoms, nl lvef Afib - off AV alexandr blockade due to prior bradycardia. rate has been controlled off meds. - resume home eliquis when ok by ortho HFPEF, chronic venous insuff: - management of volume per renal/HD. Con't lasix HTN - BP controlled off anti-hypertensives HL: - statin ESRD on HD/hyperkalemia - volume mgm't with HD per renal. GEORGE on CPAP - stable
[2016-07-11] MEDS ORDERED: INSULIN (NOVOLOG) ASPART 100 UNITS/ML 10ML VIAL ONE ×3 (11:18→21:27)
--- NOTE | 2016-07-11 12:28 | PROC ---
Procedure Note Procedure: Anesthesia Post op Pt seen and examined S:Alert and awake O: Vital Signs Temperature 98.6 F 07/11/16 09:00 Pulse Rate 123 H 07/11/16 09:00 Respiratory Rate 18 07/11/16 09:00 Blood Pressure 116/55 07/11/16 09:00 O2 Sat by Pulse Oximetry (%) 99 07/11/16 09:00 CBC, BMP 07/11/16 07:50 07/11/16 07:50 A/P: Current Active Problems Hip fracture (Acute) s/p Gamma Nail right hip Doing well post op Continue current care Rickie Bajwa
[2016-07-11] MEDS ORDERED: ENOXAPARIN NA (PORCINE) 30 MG/0.3 ML DISP.SYRIN SQ SCH (14:00)
--- NOTE | 2016-07-11 15:06 | PN ---
Progress Note (short form) - Note Progress Note: Renal Follow up for ESRD on HD Pt seen and examined at the bedside no acute complaints s/p gamma nail Left Hip yesterday s/p dialysis yesterday Vital Signs Temperature 98.3 F 07/11/16 14:50 Pulse Rate 110 H 07/11/16 14:50 Respiratory Rate 18 07/11/16 12:59 Blood Pressure 115/57 07/11/16 12:59 O2 Sat by Pulse Oximetry (%) 99 07/11/16 09:00 Intake & Output 07/08/16 07/09/16 07/10/16 07/11/16 23:59 23:59 23:59 23:59 Intake Total 100 250 600 Output Total 100 5 Balance 100 150 595 Weight 188 lb 11.2 oz 186 lb 188 lb 8 oz Gen: NAD, awake and alert CVS: irregular, no M/R Lungs: Dec BS Lung bases, no rales Abd: soft NT/ND Ext: Trace to 1+ edema in LE Access: Left ARM AVF CBC, BMP 07/11/16 07:50 07/11/16 07:50 Current Medications Acetaminophen (Tylenol -) 650 mg PO Q4H PRN PRN Reason: FEVER OR PAIN Atorvastatin Calcium (Lipitor -) 10 mg PO HS [facility] Last Admin: 07/10/16 22:02 Dose: 10 mg Cholecalciferol (Vitamin D3 -) 1,000 unit PO DAILY [facility] Last Admin: 07/11/16 09:37 Dose: 1,000 unit Docusate Sodium (Colace -) 100 mg PO BID [facility] Last Admin: 07/11/16 09:36 Dose: 100 mg Enoxaparin Sodium (Lovenox -) 30 mg SQ DAILY [facility] Fentanyl (Sublimaze Injection -) 50 mcg IVPUSH [id number] PRN PRN Reason: PAIN Stop: 07/13/16 16:41 Last Admin: 07/10/16 16:53 Dose: 25 mcg Furosemide (Lasix -) 80 mg PO DAILY [facility] Last Admin: 07/11/16 09:37 Dose: 80 mg Hydromorphone HCl (Dilaudid Injection -) 1 mg IVPB Q4H PRN PRN Reason: PAIN Last Admin: 07/11/16 13:46 Dose: 1 mg Cefazolin Sodium/Dextrose (Ancef 2 Gm Premixed Ivpb -) 50 mls @ 100 mls/hr IVPB Q8H-IV [facility] PRN Reason: Protocol Stop: 07/11/16 17:59 Last Admin: 07/11/16 09:36 Dose: 100 mls/hr Lactated Ringer's (Lactated Ringers Solution) 1,000 mls @ 42 mls/hr IV ASDIR [facility] Last Admin: 07/11/16 09:48 Dose: 42 mls/hr Insulin Aspart (Novolog Vial Sliding Scale -) 1 vial SQ ACHS DREW PRN Reason: Protocol Last Admin: 07/11/16 11:19 Dose: 1 units Loratadine (Claritin -) 10 mg PO DAILY PRN PRN Reason: allergy Ondansetron HCl (Zofran Injection) 4 mg IVPB Q6H PRN PRN Reason: NAUSEA Polyethylene Glycol (Miralax (For Daily Use) -) 17 gm PO DAILY [facility] Last Admin: 07/11/16 09:48 Dose: Not Given A/P 85 year old woman with PMhx of ESRD on HD (MWF), Afib on A/C, HTN, CAD s/p stents, CHF, DM who presented s/p fall with multiple fractures. #Intertrochanteric hip fx/Humerus Fracture s/p Gamma Nail Arm in immobilizer #ESRD on HD no acute indication for dialysis today plan for next treatment tomorrow #CKD Related Anemia trend CBC Goal Hgb > 10 Massimo Melissa DO
[2016-07-11] MEDS: ENOXAPARIN NA (PORCINE) 30 MG/0.3 ML DISP.SYRIN SQ SCH (15:38)
[2016-07-11] MEDS: ATORVASTATIN CA 10 MG TABLET (FP) PO SCH (21:18)
[2016-07-12] MEDS: HYDROmorphone HCL CARPU-JECT 1 MG/1 ML DISP.SYRIN IVPB PRN ×4 (01:48→16:57)
[2016-07-12] MEDS: INSULIN SLIDING SCALE (NOVOLOG) 1 VIAL SQ SCH ×4 (06:03→22:03)
--- NOTE | 2016-07-12 09:26 | PN ---
Progress Note (short form) - Note Progress Note: AVSS COMFORTABLE BANDAGES DRY AND INTACT CALF SOFT AND NT, NVI IMP: DOING WELL PLAN: OOB, PT, WBAT
[2016-07-12] MEDS ORDERED: INSULIN (NOVOLOG) ASPART 100 UNITS/ML 10ML VIAL ONE ×3 (11:36→22:20)
[2016-07-12] MEDS ORDERED: EPOETIN ALFA 2,000 UNITS/1 ML VIAL IVPUSH ONE (12:30)
--- NOTE | 2016-07-12 13:44 | PN ---
Progress Note (short form) - Note Progress Note: Renal Follow up for ESRD on HD Pt seen and examined during dialysis BP stable, access with good function goal UF is 2L no sob or chest pain continues to have pain in the arm Vital Signs Temperature 97.8 F 07/12/16 08:00 Pulse Rate 104 H 07/12/16 08:00 Respiratory Rate 18 07/12/16 08:00 Blood Pressure 109/53 07/12/16 08:00 O2 Sat by Pulse Oximetry (%) 99 07/11/16 21:00 Gen: NAD, awake and alert CVS: irregular, no M/R Lungs: Dec BS Lung bases, no rales Abd: soft NT/ND Ext: Trace to 1+ edema in LE Access: Left ARM AVF CBC, BMP 07/11/16 07:50 BMP pending Current Medications Acetaminophen (Tylenol -) 650 mg PO Q4H PRN PRN Reason: FEVER OR PAIN Atorvastatin Calcium (Lipitor -) 10 mg PO HS [facility] Last Admin: 07/11/16 21:18 Dose: 10 mg Cholecalciferol (Vitamin D3 -) 1,000 unit PO DAILY [facility] Last Admin: 07/11/16 09:37 Dose: 1,000 unit Docusate Sodium (Colace -) 100 mg PO BID [facility] Last Admin: 07/11/16 21:17 Dose: 100 mg Enoxaparin Sodium (Lovenox -) 30 mg SQ DAILY [facility] Last Admin: 07/11/16 15:38 Dose: 30 mg Fentanyl (Sublimaze Injection -) 50 mcg IVPUSH [id number] PRN PRN Reason: PAIN Stop: 07/13/16 16:41 Last Admin: 07/10/16 16:53 Dose: 25 mcg Furosemide (Lasix -) 80 mg PO DAILY [facility] Last Admin: 07/11/16 09:37 Dose: 80 mg Hydromorphone HCl (Dilaudid Injection -) 1 mg IVPB Q4H PRN PRN Reason: PAIN Last Admin: 07/12/16 12:52 Dose: 1 mg Lactated Ringer's (Lactated Ringers Solution) 1,000 mls @ 42 mls/hr IV ASD[facility] Last Admin: 07/11/16 09:48 Dose: 42 mls/hr Insulin Aspart (Novolog Vial Sliding Scale -) 1 vial SQ ACHS [facility] PRN Reason: Protocol Last Admin: 07/12/16 11:37 Dose: 3 units Loratadine (Claritin -) 10 mg PO DAILY PRN PRN Reason: allergy Ondansetron HCl (Zofran Injection) 4 mg IVPB Q6H PRN PRN Reason: NAUSEA Polyethylene Glycol (Miralax (For Daily Use) -) 17 gm PO DAILY [facility] Last Admin: 07/11/16 09:48 Dose: Not Given A/P 85 year old woman with PMhx of ESRD on HD (MWF), Afib on A/C, HTN, CAD s/p stents, CHF, DM who presented s/p fall with multiple fractures. #ESRD on HD stable dialysis today UF as tolerated #Intertrochanteric hip fx/Humerus Fracture s/p Gamma Nail Arm in immobilizer Pain control Ortho follow up #CKD Related Anemia trend CBC Goal Hgb > 10 ARI with dialysis Massimo Melissa DO
[2016-07-12 14:03] LABS: CALCIUM 7.9 mg/dL (8.5-10.1)
[2016-07-12 14:05] LABS: CREATININE 4.9 mg/dL (0.55-1.02); PHOSPHOROUS 4.9 mg/dL (2.5-4.9)
[2016-07-12] MEDS: CEFTRIAXONE 50 ML IVPB SCH (16:11)
--- NOTE | 2016-07-12 16:38 | PN ---
Progress Note, Physician Chief Complaint: Ms Mcdonnell tolerated the surgery well. No complaints today. However cannot stand up. No cp, sob, n/v. - Current Medication List Current Medications: Active Medications Acetaminophen (Tylenol -) 650 mg PO Q4H PRN PRN Reason: FEVER OR PAIN Atorvastatin Calcium (Lipitor -) 10 mg PO HS [facility] Last Admin: 07/11/16 21:18 Dose: 10 mg Cholecalciferol (Vitamin D3 -) 1,000 unit PO DAILY [facility] Last Admin: 07/11/16 09:37 Dose: 1,000 unit Docusate Sodium (Colace -) 100 mg PO BID [facility] Last Admin: 07/11/16 21:17 Dose: 100 mg Enoxaparin Sodium (Lovenox -) 30 mg SQ DAILY [facility] Last Admin: 07/11/16 15:38 Dose: 30 mg Fentanyl (Sublimaze Injection -) 50 mcg IVPUSH [id number] PRN PRN Reason: PAIN Stop: 07/13/16 16:41 Last Admin: 07/10/16 16:53 Dose: 25 mcg Furosemide (Lasix -) 80 mg PO DAILY [facility] Last Admin: 07/11/16 09:37 Dose: 80 mg Hydromorphone HCl (Dilaudid Injection -) 1 mg IVPB Q4H PRN PRN Reason: PAIN Last Admin: 07/12/16 12:52 Dose: 1 mg Lactated Ringer's (Lactated Ringers Solution) 1,000 mls @ 42 mls/hr IV ASDIR [facility] Last Admin: 07/11/16 09:48 Dose: 42 mls/hr Ceftriaxone Sodium (Rocephin 1gm Ivpb (Pre-Docked)) 50 mls @ 100 mls/hr IVPB DAILY [facility] Last Admin: 07/12/16 16:11 Dose: 100 mls/hr Insulin Aspart (Novolog Vial Sliding Scale -) 1 vial SQ ACHS DREW PRN Reason: Protocol Last Admin: 07/12/16 11:37 Dose: 3 units Loratadine (Claritin -) 10 mg PO DAILY PRN PRN Reason: allergy Ondansetron HCl (Zofran Injection) 4 mg IVPB Q6H PRN PRN Reason: NAUSEA Polyethylene Glycol (Miralax (For Daily Use) -) 17 gm PO DAILY [facility] Last Admin: 07/11/16 09:48 Dose: Not Given - Objective Vital Signs: Vital Signs Temperature 97.9 F 07/12/16 15:56 Pulse Rate 98 H 07/12/16 15:56 Respiratory Rate 18 07/12/16 15:56 Blood Pressure 131/45 07/12/16 15:56 O2 Sat by Pulse Oximetry (%) 98 07/12/16 09:00 Constitutional: Yes: Well Nourished, No Distress, Calm Cardiovascular: Yes: Regular Rate and Rhythm. No: Gallop, Murmur, Rub Respiratory: Yes: Regular, CTA Bilaterally. No: Rales, Rhonchi, Wheezes Gastrointestinal: Yes: Normal Bowel Sounds, Soft. No: Distention, Tenderness Extremities: Yes: WNL Edema: Yes Edema: LLE: 1+, RLE: 1+ Labs: CBC, BMP 07/11/16 07:50 07/12/16 12:00 INR, PTT INR 1.18 (0.82-1.09) H 07/10/16 07:40 Problem List - Problems (1) Hip fracture Code(s): S72.009A - FRACTURE OF UNSP PART OF NECK OF UNSP FEMUR, INIT Qualifiers: Encounter type: initial encounter Fracture type: closed Laterality : right Qualified Code(s): S72.001A - Fracture of unspecified part of neck of right femur, initial encounter for closed fracture (2) (HFpEF) heart failure with preserved ejection fraction Code(s): I50.9 - HEART FAILURE, UNSPECIFIED (3) Bilateral leg edema Code(s): R60.0 - LOCALIZED EDEMA (4) Diabetes Code(s): E11.9 - TYPE 2 DIABETES MELLITUS WITHOUT COMPLICATIONS (5) HTN (hypertension) Code(s): I10 - ESSENTIAL (PRIMARY) HYPERTENSION (6) Hyperkalemia Code(s): E87.5 - HYPERKALEMIA (7) End stage renal failure on dialysis Code(s): N18.6 - END STAGE RENAL DISEASE Z99.2 - DEPENDENCE ON RENAL DIALYSIS (8) Obesity Code(s): E66.9 - OBESITY, UNSPECIFIED Qualifiers: Obesity severity: morbid Assessment/Plan (1) Hip fracture Assessment/Plan: -s/p surgery -doing well -pain control and PT consult Code(s): S72.009A - FRACTURE OF UNSP PART OF NECK OF UNSP FEMUR, INIT Qualifiers: Encounter type: initial encounter Fracture type: closed Laterality : right Qualified Code(s): S72.001A - Fracture of unspecified part of neck of right femur, initial encounter for closed fracture (2) (HFpEF) heart failure with preserved ejection fraction Assessment/Plan: -continue lasix -leg edema unchanged Code(s): I50.9 - HEART FAILURE, UNSPECIFIED (3) Bilateral leg edema Assessment/Plan: -stable Code(s): R60.0 - LOCALIZED EDEMA (4) Diabetes Assessment/Plan: -diabetic/renal diet Code(s): E11.9 - TYPE 2 DIABETES MELLITUS WITHOUT COMPLICATIONS (5) HTN (hypertension) Assessment/Plan: -well controlled -continue lasix Code(s): I10 - ESSENTIAL (PRIMARY) HYPERTENSION (6) Hyperkalemia Assessment/Plan: -resolved with HD Code(s): E87.5 - HYPERKALEMIA (7) End stage renal failure on dialysis Assessment/Plan: -continue HD per nephrology Code(s): N18.6 - END STAGE RENAL DISEASE Z99.2 - DEPENDENCE ON RENAL DIALYSIS (8) Obesity Code(s): E66.9 - OBESITY, UNSPECIFIED Qualifiers: Obesity severity: morbid The patient was seen and this note is for 2/2. Unable to place note yesterday secondary to technical issues
--- NOTE | 2016-07-12 16:40 | PN ---
Progress Note, Physician Chief Complaint: Ms Mcdonnell says she is having pain in her leg. No cp, sob, n/v. - Current Medication List Current Medications: Active Medications Acetaminophen (Tylenol -) 650 mg PO Q4H PRN PRN Reason: FEVER OR PAIN Atorvastatin Calcium (Lipitor -) 10 mg PO HS [facility] Last Admin: 07/11/16 21:18 Dose: 10 mg Cholecalciferol (Vitamin D3 -) 1,000 unit PO DAILY [facility] Last Admin: 07/11/16 09:37 Dose: 1,000 unit Docusate Sodium (Colace -) 100 mg PO BID [facility] Last Admin: 07/11/16 21:17 Dose: 100 mg Enoxaparin Sodium (Lovenox -) 30 mg SQ DAILY [facility] Last Admin: 07/11/16 15:38 Dose: 30 mg Fentanyl (Sublimaze Injection -) 50 mcg IVPUSH [id number] PRN PRN Reason: PAIN Stop: 07/13/16 16:41 Last Admin: 07/10/16 16:53 Dose: 25 mcg Furosemide (Lasix -) 80 mg PO DAILY [facility] Last Admin: 07/11/16 09:37 Dose: 80 mg Hydromorphone HCl (Dilaudid Injection -) 1 mg IVPB Q4H PRN PRN Reason: PAIN Last Admin: 07/12/16 12:52 Dose: 1 mg Lactated Ringer's (Lactated Ringers Solution) 1,000 mls @ 42 mls/hr IV ASDIR [facility] Last Admin: 07/11/16 09:48 Dose: 42 mls/hr Ceftriaxone Sodium (Rocephin 1gm Ivpb (Pre-Docked)) 50 mls @ 100 mls/hr IVPB DAILY [facility] Last Admin: 07/12/16 16:11 Dose: 100 mls/hr Insulin Aspart (Novolog Vial Sliding Scale -) 1 vial SQ ACHS [facility] PRN Reason: Protocol Last Admin: 07/12/16 11:37 Dose: 3 units Loratadine (Claritin -) 10 mg PO DAILY PRN PRN Reason: allergy Ondansetron HCl (Zofran Injection) 4 mg IVPB Q6H PRN PRN Reason: NAUSEA Polyethylene Glycol (Miralax (For Daily Use) -) 17 gm PO DAILY [facility] Last Admin: 07/11/16 09:48 Dose: Not Given - Objective Vital Signs: Vital Signs Temperature 97.9 F 07/12/16 15:56 Pulse Rate 98 H 07/12/16 15:56 Respiratory Rate 18 07/12/16 15:56 Blood Pressure 131/45 07/12/16 15:56 O2 Sat by Pulse Oximetry (%) 98 07/12/16 09:00 Constitutional: Yes: Mild Distress, Obese Cardiovascular: Yes: Regular Rate and Rhythm. No: Gallop, Murmur, Rub Respiratory: Yes: Regular, CTA Bilaterally. No: Rales, Rhonchi, Wheezes Gastrointestinal: Yes: Normal Bowel Sounds, Soft. No: Distention, Tenderness Extremities: Yes: WNL Edema: Yes Edema: LLE: 1+, RLE: 1+ Labs: CBC, BMP 07/11/16 07:50 07/12/16 12:00 INR, PTT INR 1.18 (0.82-1.09) H 07/10/16 07:40 Problem List - Problems (1) Hip fracture Code(s): S72.009A - FRACTURE OF UNSP PART OF NECK OF UNSP FEMUR, INIT Qualifiers: Encounter type: initial encounter Fracture type: closed Laterality : right Qualified Code(s): S72.001A - Fracture of unspecified part of neck of right femur, initial encounter for closed fracture (2) (HFpEF) heart failure with preserved ejection fraction Code(s): I50.9 - HEART FAILURE, UNSPECIFIED (3) Bilateral leg edema Code(s): R60.0 - LOCALIZED EDEMA (4) Diabetes Code(s): E11.9 - TYPE 2 DIABETES MELLITUS WITHOUT COMPLICATIONS (5) HTN (hypertension) Code(s): I10 - ESSENTIAL (PRIMARY) HYPERTENSION (6) Hyperkalemia Code(s): E87.5 - HYPERKALEMIA (7) End stage renal failure on dialysis Code(s): N18.6 - END STAGE RENAL DISEASE Z99.2 - DEPENDENCE ON RENAL DIALYSIS (8) Obesity Code(s): E66.9 - OBESITY, UNSPECIFIED Qualifiers: Obesity severity: morbid Assessment/Plan (1) Hip fracture Assessment/Plan: -having pain today -continue pain control and PT Code(s): S72.009A - FRACTURE OF UNSP PART OF NECK OF UNSP FEMUR, INIT Qualifiers: Encounter type: initial encounter Fracture type: closed Laterality : right Qualified Code(s): S72.001A - Fracture of unspecified part of neck of right femur, initial encounter for closed fracture (2) (HFpEF) heart failure with preserved ejection fraction Assessment/Plan: -continue lasix -leg edema unchanged Code(s): I50.9 - HEART FAILURE, UNSPECIFIED (3) Bilateral leg edema Assessment/Plan: -stable Code(s): R60.0 - LOCALIZED EDEMA (4) Diabetes Assessment/Plan: -diabetic/renal diet Code(s): E11.9 - TYPE 2 DIABETES MELLITUS WITHOUT COMPLICATIONS (5) HTN (hypertension) Assessment/Plan: -well controlled -continue lasix Code(s): I10 - ESSENTIAL (PRIMARY) HYPERTENSION (6) Hyperkalemia Assessment/Plan: -resolved with HD Code(s): E87.5 - HYPERKALEMIA (7) End stage renal failure on dialysis Assessment/Plan: -continue HD per nephrology -HD today Code(s): N18.6 - END STAGE RENAL DISEASE Z99.2 - DEPENDENCE ON RENAL DIALYSIS (8) Obesity Code(s): E66.9 - OBESITY, UNSPECIFIED Qualifiers: Obesity severity: morbid
--- NOTE | 2016-07-12 17:02 | PN ---
Progress Note (short form) - Note Progress Note: CC: pre-op clearance s: s/p hip surgery 07/10, no cp sob palps dizzy. states leg pain is worse today. o: Current Medications Acetaminophen (Tylenol -) 650 mg PO Q4H PRN PRN Reason: FEVER OR PAIN Atorvastatin Calcium (Lipitor -) 10 mg PO HS [facility] Last Admin: 07/11/16 21:18 Dose: 10 mg Cholecalciferol (Vitamin D3 -) 1,000 unit PO DAILY [facility] Docusate Sodium (Colace -) 100 mg PO BID [facility] Last Admin: 07/11/16 21:17 Dose: 100 mg Enoxaparin Sodium (Lovenox -) 30 mg SQ DAILY [facility] Fentanyl (Sublimaze Injection -) 50 mcg IVPUSH [id number] PRN PRN Reason: PAIN Stop: 07/13/16 16:41 Last Admin: 07/10/16 16:53 Dose: 25 mcg Furosemide (Lasix -) 80 mg PO DAILY [facility] Hydromorphone HCl (Dilaudid Injection -) 1 mg IVPB Q4H PRN PRN Reason: PAIN Last Admin: 07/12/16 16:57 Dose: 1 mg Lactated Ringer's (Lactated Ringers Solution) 1,000 mls @ 42 mls/hr IV ASDIR [facility] Last Admin: 07/11/16 09:48 Dose: 42 mls/hr Ceftriaxone Sodium (Rocephin 1gm Ivpb (Pre-Docked)) 50 mls @ 100 mls/hr IVPB DAILY [facility] Last Admin: 07/12/16 16:11 Dose: 100 mls/hr Insulin Aspart (Novolog Vial Sliding Scale -) 1 vial SQ ACHS [facility] PRN Reason: Protocol Last Admin: 07/12/16 16:57 Dose: 3 units Loratadine (Claritin -) 10 mg PO DAILY PRN PRN Reason: allergy Ondansetron HCl (Zofran Injection) 4 mg IVPB Q6H PRN PRN Reason: NAUSEA Polyethylene Glycol (Miralax (For Daily Use) -) 17 gm PO DAILY [facility] Last Admin: 07/11/16 09:48 Dose: Not Given Vital Signs - 24 hr 07/11/16 07/11/16 07/11/16 18:00 21:00 22:00 Temperature 97.5 F L 98.3 F Pulse Rate 102 H 100 H Respiratory 20 20 20 Rate Blood Pressure 118/53 120/58 O2 Sat by Pulse 99 Oximetry (%) 07/12/16 07/12/16 07/12/16 05:30 08:00 09:00 Temperature 97.5 F L 97.8 F Pulse Rate 95 H 104 H Respiratory 16 18 Rate Blood Pressure 124/53 109/53 O2 Sat by Pulse 98 Oximetry (%) 07/12/16 07/12/16 07/12/16 11:55 12:00 12:30 Temperature 97.6 F Pulse Rate 49 L 85 80 Respiratory 18 18 18 Rate Blood Pressure 107/48 97/39 122/36 O2 Sat by Pulse Oximetry (%) 07/12/16 07/12/16 07/12/16 13:00 13:30 14:00 Temperature Pulse Rate 88 54 L 51 L Respiratory 18 18 18 Rate Blood Pressure 119/49 100/42 89/46 O2 Sat by Pulse Oximetry (%) 07/12/16 07/12/16 07/12/16 14:30 15:00 15:15 Temperature Pulse Rate 95 H 46 L 88 Respiratory 18 18 18 Rate Blood Pressure 99/48 116/46 91/56 O2 Sat by Pulse Oximetry (%) 07/12/16 07/12/16 15:23 15:56 Temperature 97.9 F Pulse Rate 96 H 98 H Respiratory 18 18 Rate Blood Pressure 102/55 131/45 O2 Sat by Pulse Oximetry (%) Intake & Output 07/10/16 07/11/16 07/12/16 07/13/16 07:59 07:59 07:59 07:59 Intake Total 914 384 5462 500 Output Total 0 105 Balance 497 662 6307 500 Weight 186 lb 188 lb 8 oz 185 lb 4.8 oz NAD. calm JVD difficult to assess due to neck habitus, but does not appear elevated RRR nl S1 S2. No S3, S4 or mrg cta bl, nl effort + BS, soft, obese, ND, NT erythematous/indurated Venous stasis changes with trace LE edema, warm ext No jaundice, no diaphoresis. aaox3 CBC, BMP 07/11/16 07:50 07/12/16 12:00 EKG: afib 115 bpm. LAD. LAFB. incomplete RBBB. poor r wave progression. echo 08/2015: nl lv/rv. mild lae. valves wnl. no rvsp. A/p 85 yo with CAD s/p AZUL to RCA '14, Afib on eliquis, dCHF, HTN, HL, IDDM, GEORGE declines CPAP and CKD on HD who presents s/p fall c/b hip fracture. CAD s/p AZUL to RCA in 03/2014 - on statin. not on ASA b/c of hi risk gib and on AC. - stable, no anginal symptoms, nl lvef Afib - off AV alexandr blockade due to prior bradycardia. rate has been controlled off meds. - Stop daily lovenox and resume home eliquis when ok by ortho chronic HFPEF, chronic venous insuff: - management of volume per renal/HD. Con't lasix per renal. HTN - BP controlled off anti-hypertensives. Currently running low s/p HD vs. other etiology. Consider repeat cbc tomorrow. HL: - statin ESRD on HD/hyperkalemia - volume mgm't with HD per renal. GEORGE on CPAP - stable
[2016-07-12] MEDS: CHOLECALCIFEROL (VITAMIN D3) 1,000 UNIT TABLET (FP) PO SCH (17:03)
[2016-07-12] MEDS: ENOXAPARIN NA (PORCINE) 30 MG/0.3 ML DISP.SYRIN SQ SCH (17:03)
[2016-07-12] MEDS: FUROSEMIDE 40 MG TABLET (FP) PO SCH (17:03)
[2016-07-12] MEDS: DOCUSATE SODIUM 100 MG CAPSULE (FP) PO SCH ×2 (17:04→21:55)
[2016-07-12] MEDS: POLYETHYLENE GLYCOL 3350 119 GM BTL PO SCH (17:04)
[2016-07-12] MEDS: ATORVASTATIN CA 10 MG TABLET (FP) PO SCH (21:55)
[2016-07-13] MEDS: HYDROmorphone HCL CARPU-JECT 1 MG/1 ML DISP.SYRIN IVPB PRN ×3 (00:25→20:19)
[2016-07-13 08:16] LABS: BASOPHIL 0.6 % (0-2.0); EOSINOPHIL 2.5 % (0-4.5); MCH 33.9 pg (25.7-33.7); MCHC 32.9 g/dl (32.0-36.0); MEAN PLT VOLUME 8.6 fl (7.5-11.1); NEUTROPHILS 84.1 % (42.8-82.8); PLATELET COUNT 181 K/MM3 (134-434); RDW 14.6 % (11.6-15.6); WHITE BLOOD COUNT 12.2 K/mm3 (4.0-10.0)
[2016-07-13 09:18] LABS: CALCIUM 8.2 mg/dL (8.5-10.1); CREATININE 3.1 mg/dL (0.55-1.02); MAGNESIUM 1.7 mg/dL (1.8-2.4); PHOSPHOROUS 2.9 mg/dL (2.5-4.9)
[2016-07-13] MEDS: CHOLECALCIFEROL (VITAMIN D3) 1,000 UNIT TABLET (FP) PO SCH (09:59)
[2016-07-13] MEDS: FUROSEMIDE 40 MG TABLET (FP) PO SCH (10:00)
[2016-07-13] MEDS: DOCUSATE SODIUM 100 MG CAPSULE (FP) PO SCH ×2 (10:00→22:12)
[2016-07-13] MEDS: ENOXAPARIN NA (PORCINE) 30 MG/0.3 ML DISP.SYRIN SQ SCH (10:00)
[2016-07-13] MEDS: POLYETHYLENE GLYCOL 3350 119 GM BTL PO SCH (10:00)
[2016-07-13] MEDS: CEFTRIAXONE 50 ML IVPB SCH (10:01)
[2016-07-13] MEDS ORDERED: INSULIN (NOVOLOG) ASPART 100 UNITS/ML 10ML VIAL ONE ×2 (11:51→16:25)
[2016-07-13] MEDS: INSULIN SLIDING SCALE (NOVOLOG) 1 VIAL SQ SCH ×3 (11:53→22:13)
--- NOTE | 2016-07-13 14:18 | PN ---
Progress Note (short form) - Note Progress Note: Still c/o pain in lower extremities. No acute event overnight. Denies chest pain, shortness of breath. - Current Medication List Current Medications: Active Medications Acetaminophen (Tylenol -) 650 mg PO Q4H PRN PRN Reason: FEVER OR PAIN Atorvastatin Calcium (Lipitor -) 10 mg PO HS [facility] Last Admin: 07/11/16 21:18 Dose: 10 mg Cholecalciferol (Vitamin D3 -) 1,000 unit PO DAILY [facility] Last Admin: 07/11/16 09:37 Dose: 1,000 unit Docusate Sodium (Colace -) 100 mg PO BID [facility] Last Admin: 07/11/16 21:17 Dose: 100 mg Enoxaparin Sodium (Lovenox -) 30 mg SQ DAILY [facility] Last Admin: 07/11/16 15:38 Dose: 30 mg Fentanyl (Sublimaze Injection -) 50 mcg IVPUSH [id number] PRN PRN Reason: PAIN Stop: 07/13/16 16:41 Last Admin: 07/10/16 16:53 Dose: 25 mcg Furosemide (Lasix -) 80 mg PO DAILY [facility] Last Admin: 07/11/16 09:37 Dose: 80 mg Hydromorphone HCl (Dilaudid Injection -) 1 mg IVPB Q4H PRN PRN Reason: PAIN Last Admin: 07/12/16 12:52 Dose: 1 mg Lactated Ringer's (Lactated Ringers Solution) 1,000 mls @ 42 mls/hr IV ASDIR [facility] Last Admin: 07/11/16 09:48 Dose: 42 mls/hr Ceftriaxone Sodium (Rocephin 1gm Ivpb (Pre-Docked)) 50 mls @ 100 mls/hr IVPB DAILY [facility] Last Admin: 07/12/16 16:11 Dose: 100 mls/hr Insulin Aspart (Novolog Vial Sliding Scale -) 1 vial SQ ACHS [facility] PRN Reason: Protocol Last Admin: 07/12/16 11:37 Dose: 3 units Loratadine (Claritin -) 10 mg PO DAILY PRN PRN Reason: allergy Ondansetron HCl (Zofran Injection) 4 mg IVPB Q6H PRN PRN Reason: NAUSEA Polyethylene Glycol (Miralax (For Daily Use) -) 17 gm PO DAILY [facility] Last Admin: 02/02/17 09:48 Dose: Not Given - Objective Vital Signs: Vital Signs Period Temp Pulse Resp BP Sys/Adams Pulse Ox Last 24 Hr 97.5 F-97.9 F 46-109 18-20 91-131/40-56 97-98 Constitutional: Yes: Mild Distress, Obese Cardiovascular: Yes: Regular Rate and Rhythm. No: Gallop, Murmur, Rub Respiratory: Yes: Regular, CTA Bilaterally. No: Rales, Rhonchi, Wheezes Gastrointestinal: Yes: Normal Bowel Sounds, Soft. No: Distention, Tenderness Extremities: Yes: WNL Edema: Yes Edema: LLE: 1+, RLE: 1+ Labs: CBC, BMP 07/13/16 06:15 07/13/16 06:15 Problem List - Problems (1) Hip fracture Code(s): S72.009A - FRACTURE OF UNSP PART OF NECK OF UNSP FEMUR, INIT Qualifiers: Encounter type: initial encounter Fracture type: closed Laterality : right Qualified Code(s): S72.001A - Fracture of unspecified part of neck of right femur, initial encounter for closed fracture (2) (HFpEF) heart failure with preserved ejection fraction Code(s): I50.9 - HEART FAILURE, UNSPECIFIED (3) Bilateral leg edema Code(s): R60.0 - LOCALIZED EDEMA (4) Diabetes Code(s): E11.9 - TYPE 2 DIABETES MELLITUS WITHOUT COMPLICATIONS (5) HTN (hypertension) Code(s): I10 - ESSENTIAL (PRIMARY) HYPERTENSION (6) Hyperkalemia Code(s): E87.5 - HYPERKALEMIA (7) End stage renal failure on dialysis Code(s): N18.6 - END STAGE RENAL DISEASE Z99.2 - DEPENDENCE ON RENAL DIALYSIS (8) Obesity Code(s): E66.9 - OBESITY, UNSPECIFIED Qualifiers: Obesity severity: morbid Assessment/Plan (1) Hip fracture Assessment/Plan: -Continue pain control and PT Code(s): S72.009A - FRACTURE OF UNSP PART OF NECK OF UNSP FEMUR, INIT Qualifiers: Encounter type: initial encounter Fracture type: closed Laterality : right Qualified Code(s): S72.001A - Fracture of unspecified part of neck of right femur, initial encounter for closed fracture (2) (HFpEF) heart failure with preserved ejection fraction Assessment/Plan: -continue lasix -leg edema unchanged Code(s): I50.9 - HEART FAILURE, UNSPECIFIED (3) Bilateral leg edema Assessment/Plan: -stable Code(s): R60.0 - LOCALIZED EDEMA (4) Diabetes Assessment/Plan: -diabetic/renal diet Code(s): E11.9 - TYPE 2 DIABETES MELLITUS WITHOUT COMPLICATIONS (5) HTN (hypertension) Assessment/Plan: -well controlled -continue lasix Code(s): I10 - ESSENTIAL (PRIMARY) HYPERTENSION (6) Hyperkalemia Assessment/Plan: -resolved with HD Code(s): E87.5 - HYPERKALEMIA (7) End stage renal failure on dialysis Assessment/Plan: -continue HD per nephrology -HD today Code(s): N18.6 - END STAGE RENAL DISEASE Z99.2 - DEPENDENCE ON RENAL DIALYSIS (8) Obesity Code(s): E66.9 - OBESITY, UNSPECIFIED Qualifiers: Obesity severity: morbid
--- NOTE | 2016-07-13 14:56 | PN ---
Progress Note (short form) - Note Progress Note: CC: pre-op clearance s: s/p hip surgery 07/10, still with significant pain. no cp sob palps dizzy. + mild orthopnea. o: Current Medications Acetaminophen (Tylenol -) 650 mg PO Q4H PRN PRN Reason: FEVER OR PAIN Atorvastatin Calcium (Lipitor -) 10 mg PO HS [facility] Last Admin: 07/12/16 21:55 Dose: 10 mg Cholecalciferol (Vitamin D3 -) 1,000 unit PO DAILY [facility] Last Admin: 07/13/16 09:59 Dose: 1,000 unit Docusate Sodium (Colace -) 100 mg PO BID [facility] Last Admin: 07/13/16 10:00 Dose: 100 mg Enoxaparin Sodium (Lovenox -) 30 mg SQ DAILY [facility] Last Admin: 07/13/16 10:00 Dose: 30 mg Fentanyl (Sublimaze Injection -) 50 mcg IVPUSH [id number] PRN PRN Reason: PAIN Stop: 07/13/16 16:41 Last Admin: 07/10/16 16:53 Dose: 25 mcg Furosemide (Lasix -) 80 mg PO DAILY [facility] Last Admin: 07/13/16 10:00 Dose: 80 mg Hydromorphone HCl (Dilaudid Injection -) 1 mg IVPB Q4H PRN PRN Reason: PAIN Last Admin: 07/13/16 00:25 Dose: 1 mg Ceftriaxone Sodium (Rocephin 1gm Ivpb (Pre-Docked)) 50 mls @ 100 mls/hr IVPB DAILY [facility] Last Admin: 07/13/16 10:01 Dose: 100 mls/hr Insulin Aspart (Novolog Vial Sliding Scale -) 1 vial SQ ACHS [facility] PRN Reason: Protocol Last Admin: 07/13/16 11:53 Dose: 3 units Loratadine (Claritin -) 10 mg PO DAILY PRN PRN Reason: allergy Ondansetron HCl (Zofran Injection) 4 mg IVPB Q6H PRN PRN Reason: NAUSEA Polyethylene Glycol (Miralax (For Daily Use) -) 17 gm PO DAILY [facility] Last Admin: 07/13/16 10:00 Dose: 17 gm Vital Signs - 24 hr 07/12/16 07/12/16 07/12/16 15:00 15:15 15:23 Temperature Pulse Rate 46 L 88 96 H Respiratory 18 18 18 Rate Blood Pressure 116/46 91/56 102/55 O2 Sat by Pulse Oximetry (%) 07/12/16 07/12/16 07/12/16 15:56 17:31 21:00 Temperature 97.9 F 97.6 F Pulse Rate 98 H 75 100 H Respiratory 18 18 18 Rate Blood Pressure 131/45 100/50 116/41 O2 Sat by Pulse 98 Oximetry (%) 07/13/16 07/13/16 07/13/16 05:48 08:00 09:00 Temperature 97.5 F L 97.5 F L Pulse Rate 99 H 109 H Respiratory 20 20 Rate Blood Pressure 100/50 101/40 O2 Sat by Pulse 97 Oximetry (%) 07/13/16 09:07 Temperature Pulse Rate 108 H Respiratory 20 Rate Blood Pressure 114/50 O2 Sat by Pulse Oximetry (%) Intake & Output 07/11/16 07/12/16 07/13/16 07/14/16 07:59 07:59 07:59 07:59 Intake Total 250 1953 500 Output Total 105 Balance 145 1953 500 Weight 188 lb 8 oz 185 lb 4.8 oz 190 lb NAD. calm JVD difficult to assess due to neck habitus, but does not appear elevated RRR nl S1 S2. No S3, S4 or mrg cta bl, nl effort + BS, soft, obese, ND, NT erythematous/indurated Venous stasis changes with 1+ LE edema, warm ext No jaundice, no diaphoresis. aaox3 CBC, BMP 07/13/16 06:15 07/13/16 06:15 EKG: afib 115 bpm. LAD. LAFB. incomplete RBBB. poor r wave progression. echo 08/2015: nl lv/rv. mild lae. valves wnl. no rvsp. A/p 85 yo with CAD s/p AZUL to RCA '14, Afib on eliquis, dCHF, HTN, HL, IDDM, GEORGE declines CPAP and CKD on HD who presents s/p fall c/b hip fracture. CAD s/p AZUL to RCA in 03/2014 - on statin. not on ASA b/c of hi risk gib and on AC. - stable, no anginal symptoms, nl lvef Afib - off AV alexandr blockade due to prior bradycardia. rate has been reasonably controlled off meds. - pain mgm't per pmd/surgery - Stop daily lovenox and resume home eliquis when ok by ortho chronic HFPEF, chronic venous insuff: - management of volume per renal/HD. Con't lasix per renal. HTN - BP controlled off anti-hypertensives. Currently running low s/p HD vs. other etiology. hgb stable, weight count improving. HL: - statin ESRD on HD/hyperkalemia - volume mgm't with HD per renal. GEORGE on CPAP - stable
--- NOTE | 2016-07-13 17:30 | PN ---
Progress Note (short form) - Note Progress Note: Ortho Pt seen and examined s/p right IM gamma nail, right distal humerus fx Selected Entries 07/13/16 14:00 Temperature 98.0 F Pulse Rate 102 H Respiratory 20 Rate Blood Pressure 101/52 Laboratory Tests 07/13/16 06:15 WBC 12.2 H Hgb 9.2 L Hct 28.0 L Plt Count 181 dressing saturated but not to borders, + swelling nvi immobilizer intact a/p PT if able oob if able pain control dvt ppx d/c planning
[2016-07-13] MEDS: ACETAMINOPHEN 325 MG TABLET (FP) PO PRN (20:12)
[2016-07-13] MEDS ORDERED: PT OWN MED DRAWER 7, Y5N ONE (22:08)
[2016-07-13] MEDS: ATORVASTATIN CA 10 MG TABLET (FP) PO SCH (22:12)
[2016-07-14] MEDS: HYDROmorphone HCL CARPU-JECT 1 MG/1 ML DISP.SYRIN IVPB PRN ×4 (06:14→20:46)
[2016-07-14] MEDS: INSULIN SLIDING SCALE (NOVOLOG) 1 VIAL SQ SCH ×5 (06:18→22:41)
[2016-07-14 08:29] LABS: ALBUMIN 1.9 g/dl (3.4-5.0); ALK PHOS 102 U/L (45-117); ANION GAP 14 (8-16); BILIRUBIN,TOTAL 0.4 mg/dL (0.2-1.0); CALCIUM 7.8 mg/dL (8.5-10.1); CO2 27 mmol/L (21-32); GLUCOSE,RANDOM 151 mg/dL (74-106); SGOT/AST 16 U/L (15-37); SGPT/ALT < 6 U/L (12-78); TOT PROT 5.1 g/dl (6.4-8.2)
[2016-07-14 08:34] LABS: BASOPHIL 0.2 % (0-2.0); EOSINOPHIL 3.1 % (0-4.5); MCHC 32.9 g/dl (32.0-36.0); MEAN CELL VOLUME 103.5 fl (80-96); NEUTROPHILS 86.1 % (42.8-82.8); PLATELET COUNT 199 K/MM3 (134-434); RDW 14.6 % (11.6-15.6)
[2016-07-14] MEDS: CHOLECALCIFEROL (VITAMIN D3) 1,000 UNIT TABLET (FP) PO SCH ×2 (09:24→12:44)
[2016-07-14] MEDS: DOCUSATE SODIUM 100 MG CAPSULE (FP) PO SCH ×2 (09:24→21:35)
[2016-07-14] MEDS: FUROSEMIDE 40 MG TABLET (FP) PO SCH ×2 (09:25→12:43)
[2016-07-14] MEDS: ENOXAPARIN NA (PORCINE) 30 MG/0.3 ML DISP.SYRIN SQ SCH ×2 (09:25→12:43)
[2016-07-14] MEDS: POLYETHYLENE GLYCOL 3350 119 GM BTL PO SCH (09:26)
[2016-07-14] MEDS: CEFTRIAXONE 50 ML IVPB SCH (09:27)
--- NOTE | 2016-07-14 11:12 | PN ---
Progress Note (short form) - Note Progress Note: Renal Follow up for ESRD on HD Pt seen and examined at the bedside complains of pain in the hip, more pronounced after starting PT denies any sob, or chest pain Vital Signs Temperature 98.3 F 07/14/16 02:33 Pulse Rate 90 07/14/16 02:33 Respiratory Rate 20 07/14/16 02:33 Blood Pressure 121/60 07/14/16 02:33 O2 Sat by Pulse Oximetry (%) 96 07/13/16 21:00 Intake & Output 07/11/16 07/12/16 07/13/16 07/14/16 23:59 23:59 23:59 23:59 Intake Total 1404 1050 250 Output Total 5 Balance 1399 1050 250 Weight 188 lb 8 oz 185 lb 4.8 oz 190 lb 190 lb 8 oz Gen: NAD, awake and alert CVS: irregular, no M/R Lungs: Dec BS Lung bases, no rales Abd: soft NT/ND Ext: Trace to 1+ edema in LE Access: Left ARM AVF CBC, BMP 07/14/16 06:20 07/14/16 06:20 Current Medications Acetaminophen (Tylenol -) 650 mg PO Q4H PRN PRN Reason: FEVER OR PAIN Last Admin: 07/13/16 20:12 Dose: 650 mg Atorvastatin Calcium (Lipitor -) 10 mg PO HS [facility] Last Admin: 07/13/16 22:12 Dose: 10 mg Cholecalciferol (Vitamin D3 -) 1,000 unit PO DAILY [facility] Last Admin: 07/14/16 09:24 Dose: 1,000 unit Docusate Sodium (Colace -) 100 mg PO BID [facility] Last Admin: 07/14/16 09:24 Dose: 100 mg Enoxaparin Sodium (Lovenox -) 30 mg SQ DAILY [facility] Last Admin: 07/14/16 09:25 Dose: 30 mg Furosemide (Lasix -) 80 mg PO DAILY [facility] Last Admin: 07/14/16 09:25 Dose: 80 mg Hydromorphone HCl (Dilaudid Injection -) 1 mg IVPB Q4H PRN PRN Reason: PAIN Last Admin: 07/14/16 10:37 Dose: 1 mg Ceftriaxone Sodium (Rocephin 1gm Ivpb (Pre-Docked)) 50 mls @ 100 mls/hr IVPB DAILY [facility] Last Admin: 07/14/16 09:27 Dose: 100 mls/hr Insulin Aspart (Novolog Vial Sliding Scale -) 1 vial SQ ACHS [facility] PRN Reason: Protocol Last Admin: 07/14/16 11:04 Dose: 3 units Loratadine (Claritin -) 10 mg PO DAILY PRN PRN Reason: allergy Ondansetron HCl (Zofran Injection) 4 mg IVPB Q6H PRN PRN Reason: NAUSEA Polyethylene Glycol (Miralax (For Daily Use) -) 17 gm PO DAILY [facility] Last Admin: 07/14/16 09:26 Dose: 17 gm A/P 85 year old woman with PMhx of ESRD on HD (MWF), Afib on A/C, HTN, CAD s/p stents, CHF, DM who presented s/p fall with multiple fractures. #ESRD on HD no indication for dialysis today #Hyponatremia from fluid overload advised fluid restriction #Intertrochanteric hip fx/Humerus Fracture s/p Gamma Nail Arm in immobilizer Pain control Ortho follow up - if pain increases may need imaging #CKD Related Anemia trend CBC Goal Hgb > 10 ARI with dialysis Massimo Melissa DO
[2016-07-14] MEDS: ACETAMINOPHEN 325 MG TABLET (FP) PO PRN ×2 (13:45→21:36)
--- NOTE | 2016-07-14 14:00 | PN ---
Progress Note (short form) - Note Progress Note: CC: pre-op clearance s: s/p hip surgery 07/10, still with significant pain. no cp sob palps dizzy. + mild orthopnea. o: Current Medications Acetaminophen (Tylenol -) 650 mg PO Q4H PRN PRN Reason: FEVER OR PAIN Last Admin: 07/14/16 13:45 Dose: 650 mg Atorvastatin Calcium (Lipitor -) 10 mg PO HS [facility] Last Admin: 07/13/16 22:12 Dose: 10 mg Cholecalciferol (Vitamin D3 -) 1,000 unit PO DAILY [facility] Last Admin: 07/14/16 09:24 Dose: 1,000 unit Docusate Sodium (Colace -) 100 mg PO BID [facility] Last Admin: 07/14/16 09:24 Dose: 100 mg Enoxaparin Sodium (Lovenox -) 30 mg SQ DAILY [facility] Last Admin: 07/14/16 09:25 Dose: 30 mg Furosemide (Lasix -) 80 mg PO DAILY [facility] Last Admin: 07/14/16 09:25 Dose: 80 mg Hydromorphone HCl (Dilaudid Injection -) 1 mg IVPB Q4H PRN PRN Reason: PAIN Last Admin: 07/14/16 10:37 Dose: 1 mg Ceftriaxone Sodium (Rocephin 1gm Ivpb (Pre-Docked)) 50 mls @ 100 mls/hr IVPB DAILY [facility] Last Admin: 07/14/16 09:27 Dose: 100 mls/hr Insulin Aspart (Novolog Vial Sliding Scale -) 1 vial SQ ACHS [facility] PRN Reason: Protocol Last Admin: 07/14/16 11:04 Dose: 3 units Loratadine (Claritin -) 10 mg PO DAILY PRN PRN Reason: allergy Ondansetron HCl (Zofran Injection) 4 mg IVPB Q6H PRN PRN Reason: NAUSEA Polyethylene Glycol (Miralax (For Daily Use) -) 17 gm PO DAILY [facility] Last Admin: 07/14/16 09:26 Dose: 17 gm Vital Signs - 24 hr 07/13/16 07/13/16 07/13/16 14:00 19:31 21:00 Temperature 98.0 F 97.5 F L Pulse Rate 102 H 100 H Respiratory 20 20 Rate Blood Pressure 101/52 107/55 O2 Sat by Pulse 96 Oximetry (%) 07/13/16 07/14/16 07/14/16 23:00 02:33 09:00 Temperature 98 F 98.3 F Pulse Rate 100 H 90 Respiratory 20 20 Rate Blood Pressure 108/58 121/60 O2 Sat by Pulse 98 Oximetry (%) 07/14/16 10:00 Temperature 97.8 F Pulse Rate 109 H Respiratory 18 Rate Blood Pressure 123/85 O2 Sat by Pulse Oximetry (%) Intake & Output 07/12/16 07/13/16 07/14/16 07/15/16 07:59 07:59 07:59 07:59 Intake Total 1953 500 250 Balance 1953 500 250 Weight 185 lb 4.8 oz 190 lb 190 lb 8 oz NAD. calm JVD difficult to assess due to neck habitus, but does not appear elevated RRR nl S1 S2. No S3, S4 or mrg cta bl, nl effort + BS, soft, obese, ND, NT erythematous/indurated Venous stasis changes with 1+ LE edema, warm ext No jaundice, no diaphoresis. aaox3 CBC, BMP 07/14/16 06:20 07/14/16 06:20 Laboratory Tests 07/09/16 07/13/16 07/14/16 05:01 06:15 06:20 Albumin 1.9 L D EKG: afib 115 bpm. LAD. LAFB. incomplete RBBB. poor r wave progression. echo 08/2015: nl lv/rv. mild lae. valves wnl. no rvsp. A/p 85 yo with CAD s/p AZUL to RCA '14, Afib on eliquis, dCHF, HTN, HL, IDDM, GEORGE declines CPAP and CKD on HD who presents s/p fall c/b hip fracture. CAD s/p AZUL to RCA in 03/2014 - on statin. not on ASA b/c of hi risk gib and on AC. - stable, no anginal symptoms, nl lvef Afib - off AV alexandr blockade due to prior bradycardia. rate has been reasonably controlled off meds. - pain mgm't per pmd/surgery - Stop daily lovenox and resume home eliquis when ok by ortho chronic HFPEF, chronic venous insuff: - management of volume per renal/HD. Con't lasix per renal. HTN - BP controlled off anti-hypertensives. Currently running low s/p HD vs. other etiology. hgb stable, white count stable but elevated. Infectious work up per pmd. . HL: - statin ESRD on HD/hyperkalemia - volume mgm't with HD per renal. GEORGE on CPAP - stable
--- NOTE | 2016-07-14 14:27 | PN ---
Progress Note (short form) - Note Progress Note: Pain lower extremities interfering with ambulation. No acute event overnight. Denies chest pain, shortness of breath, palpitation or dizziness. Afebrile - Current Medication List Current Medications: Active Medications Acetaminophen (Tylenol -) 650 mg PO Q4H PRN PRN Reason: FEVER OR PAIN Atorvastatin Calcium (Lipitor -) 10 mg PO HS [facility] Last Admin: 07/11/16 21:18 Dose: 10 mg Cholecalciferol (Vitamin D3 -) 1,000 unit PO DAILY [facility] Last Admin: 07/11/16 09:37 Dose: 1,000 unit Docusate Sodium (Colace -) 100 mg PO BID [facility] Last Admin: 07/11/16 21:17 Dose: 100 mg Enoxaparin Sodium (Lovenox -) 30 mg SQ DAILY [facility] Last Admin: 07/11/16 15:38 Dose: 30 mg Fentanyl (Sublimaze Injection -) 50 mcg IVPUSH Q3BCASEEE PRN PRN Reason: PAIN Stop: 07/13/16 16:41 Last Admin: 07/10/16 16:53 Dose: 25 mcg Furosemide (Lasix -) 80 mg PO DAILY [facility] Last Admin: 07/11/16 09:37 Dose: 80 mg Hydromorphone HCl (Dilaudid Injection -) 1 mg IVPB Q4H PRN PRN Reason: PAIN Last Admin: 07/12/16 12:52 Dose: 1 mg Lactated Ringer's (Lactated Ringers Solution) 1,000 mls @ 42 mls/hr IV ASDIR [facility] Last Admin: 07/11/16 09:48 Dose: 42 mls/hr Ceftriaxone Sodium (Rocephin 1gm Ivpb (Pre-Docked)) 50 mls @ 100 mls/hr IVPB DAILY [facility] Last Admin: 07/12/16 16:11 Dose: 100 mls/hr Insulin Aspart (Novolog Vial Sliding Scale -) 1 vial SQ ACHS [facility] PRN Reason: Protocol Last Admin: 07/12/16 11:37 Dose: 3 units Loratadine (Claritin -) 10 mg PO DAILY PRN PRN Reason: allergy Ondansetron HCl (Zofran Injection) 4 mg IVPB Q6H PRN PRN Reason: NAUSEA Polyethylene Glycol (Miralax (For Daily Use) -) 17 gm PO DAILY [facility] Last Admin: 07/11/16 09:48 Dose: Not Given - Objective Vital Signs: Vital Signs Period Temp Pulse Resp BP Sys/Adams Pulse Ox Last 24 Hr 97.5 F-98.3 F 90-109 18-20 107-123/55-85 96-98 Constitutional: Yes: Mild Distress, Obese Cardiovascular: Yes: Regular Rate and Rhythm. No: Gallop, Murmur, Rub Respiratory: Yes: Regular, CTA Bilaterally. No: Rales, Rhonchi, Wheezes Gastrointestinal: Yes: Normal Bowel Sounds, Soft. No: Distention, Tenderness Extremities: Yes: WNL Edema: Yes Edema: LLE: 1+, RLE: 1+ Labs: CBC, BMP 07/14/16 06:20 07/14/16 06:20 Problem List - Problems (1) Hip fracture Code(s): S72.009A - FRACTURE OF UNSP PART OF NECK OF UNSP FEMUR, INIT Qualifiers: Encounter type: initial encounter Fracture type: closed Laterality : right Qualified Code(s): S72.001A - Fracture of unspecified part of neck of right femur, initial encounter for closed fracture (2) (HFpEF) heart failure with preserved ejection fraction Code(s): I50.9 - HEART FAILURE, UNSPECIFIED (3) Bilateral leg edema Code(s): R60.0 - LOCALIZED EDEMA (4) Diabetes Code(s): E11.9 - TYPE 2 DIABETES MELLITUS WITHOUT COMPLICATIONS (5) HTN (hypertension) Code(s): I10 - ESSENTIAL (PRIMARY) HYPERTENSION (6) Hyperkalemia Code(s): E87.5 - HYPERKALEMIA (7) End stage renal failure on dialysis Code(s): N18.6 - END STAGE RENAL DISEASE Z99.2 - DEPENDENCE ON RENAL DIALYSIS (8) Obesity Code(s): E66.9 - OBESITY, UNSPECIFIED Qualifiers: Obesity severity: morbid Assessment/Plan (1) Hip fracture Assessment/Plan: -Continue pain control and PT Code(s): S72.009A - FRACTURE OF UNSP PART OF NECK OF UNSP FEMUR, INIT Qualifiers: Encounter type: initial encounter Fracture type: closed Laterality : right Qualified Code(s): S72.001A - Fracture of unspecified part of neck of right femur, initial encounter for closed fracture (2) (HFpEF) heart failure with preserved ejection fraction Assessment/Plan: -continue lasix -leg edema unchanged Code(s): I50.9 - HEART FAILURE, UNSPECIFIED (3) Bilateral leg edema Assessment/Plan: -stable Code(s): R60.0 - LOCALIZED EDEMA (4) Diabetes Assessment/Plan: -diabetic/renal diet Code(s): E11.9 - TYPE 2 DIABETES MELLITUS WITHOUT COMPLICATIONS (5) HTN (hypertension) Assessment/Plan: -well controlled -continue lasix Code(s): I10 - ESSENTIAL (PRIMARY) HYPERTENSION (6) Hyperkalemia Assessment/Plan: -resolved with HD Code(s): E87.5 - HYPERKALEMIA (7) End stage renal failure on dialysis Assessment/Plan: -continue HD per nephrology -HD today Code(s): N18.6 - END STAGE RENAL DISEASE Z99.2 - DEPENDENCE ON RENAL DIALYSIS (8) Obesity Code(s): E66.9 - OBESITY, UNSPECIFIED Qualifiers: Obesity severity: morbid 9) Hyponatremia/Volume overload. Fluid restriction. Renal follow up.
[2016-07-14] MEDS ORDERED: INSULIN (NOVOLOG) ASPART 100 UNITS/ML 10ML VIAL ONE (21:34)
[2016-07-14] MEDS: ATORVASTATIN CA 10 MG TABLET (FP) PO SCH (21:35)
[2016-07-15] MEDS: HYDROmorphone HCL CARPU-JECT 1 MG/1 ML DISP.SYRIN IVPB PRN ×4 (03:47→20:01)
[2016-07-15] MEDS: ACETAMINOPHEN 325 MG TABLET (FP) PO PRN ×2 (06:11→13:33)
[2016-07-15] MEDS: INSULIN SLIDING SCALE (NOVOLOG) 1 VIAL SQ SCH ×4 (06:11→21:21)
[2016-07-15 07:15] LABS: BASOPHIL 0.4 % (0-2.0); EOSINOPHIL 2.4 % (0-4.5); MCH 33.7 pg (25.7-33.7); MCHC 33.1 g/dl (32.0-36.0); MEAN CELL VOLUME 101.9 fl (80-96); MEAN PLT VOLUME 8.8 fl (7.5-11.1); NEUTROPHILS 86.6 % (42.8-82.8); PLATELET COUNT 235 K/MM3 (134-434); RDW 14.5 % (11.6-15.6); WHITE BLOOD COUNT 15.6 K/mm3 (4.0-10.0)
[2016-07-15 07:32] LABS: ALBUMIN 2.1 g/dl (3.4-5.0); ANION GAP 15 (8-16); BILIRUBIN,TOTAL 0.5 mg/dL (0.2-1.0); CALCIUM 7.8 mg/dL (8.5-10.1); CO2 26 mmol/L (21-32); CREATININE 4.8 mg/dL (0.55-1.02); GLUCOSE,RANDOM 142 mg/dL (74-106); SGOT/AST 22 U/L (15-37); SGPT/ALT < 6 U/L (12-78); TOT PROT 5.7 g/dl (6.4-8.2)
[2016-07-15 07:33] LABS: ALK PHOS 127 U/L (45-117)
--- NOTE | 2016-07-15 08:57 | PN ---
Progress Note (short form) - Note Progress Note: Ortho Pt seen and examined s/p right IM gamma nail, right distal humerus fx Selected Entries 07/15/16 06:00 Temperature 98.0 F Pulse Rate 107 H Respiratory 18 Rate Blood Pressure 103/59 Laboratory Tests 07/15/16 06:30 WBC 15.6 H Hgb 9.4 L Hct 28.5 L Plt Count 235 incision c/d/i, calf soft, nt nvi immobilizer intact a/p PT if able oob if able pain control dvt ppx d/c planning
[2016-07-15] MEDS: CHOLECALCIFEROL (VITAMIN D3) 1,000 UNIT TABLET (FP) PO SCH (09:13)
[2016-07-15] MEDS: DOCUSATE SODIUM 100 MG CAPSULE (FP) PO SCH ×2 (09:13→21:11)
[2016-07-15] MEDS: FUROSEMIDE 40 MG TABLET (FP) PO SCH (09:13)
[2016-07-15] MEDS: ENOXAPARIN NA (PORCINE) 30 MG/0.3 ML DISP.SYRIN SQ SCH (09:13)
[2016-07-15] MEDS: POLYETHYLENE GLYCOL 3350 119 GM BTL PO SCH (09:14)
[2016-07-15] MEDS: CEFTRIAXONE 50 ML IVPB SCH ×2 (11:11→16:14)
[2016-07-15] MEDS ORDERED: INSULIN (NOVOLOG) ASPART 100 UNITS/ML 10ML VIAL ONE ×3 (11:15→21:21)
--- NOTE | 2016-07-15 11:55 | PN ---
Progress Note (short form) - Note Progress Note: Renal Follow up for ESRD on HD Pt seen and examined at the bedside pain in the hip persists pt appears to be in less discomfort compared to yesterday denies sob Vital Signs Temperature 97.5 F L 07/15/16 10:00 Pulse Rate 105 H 07/15/16 10:00 Respiratory Rate 18 07/15/16 10:00 Blood Pressure 110/67 07/15/16 10:00 O2 Sat by Pulse Oximetry (%) 100 07/15/16 09:00 Intake & Output 07/12/16 07/13/16 07/14/16 07/15/16 23:59 23:59 23:59 23:59 Intake Total 1050 250 325 Balance 1050 250 325 Weight 185 lb 4.8 oz 190 lb 190 lb 8 oz 186 lb 4 oz Gen: NAD, awake and alert CVS: irregular, no M/R Lungs: Dec BS Lung bases, no rales Abd: soft NT/ND Ext: Trace to 1+ edema in LE Access: Left ARM AVF CBC, BMP 07/15/16 06:30 07/15/16 06:30 Current Medications Acetaminophen (Tylenol -) 650 mg PO Q4H PRN PRN Reason: FEVER OR PAIN Last Admin: 07/15/16 06:11 Dose: 650 mg Atorvastatin Calcium (Lipitor -) 10 mg PO HS [facility] Last Admin: 07/14/16 21:35 Dose: 10 mg Cholecalciferol (Vitamin D3 -) 1,000 unit PO DAILY [facility] Last Admin: 07/15/16 09:13 Dose: 1,000 unit Docusate Sodium (Colace -) 100 mg PO BID [facility] Last Admin: 07/15/16 09:13 Dose: 100 mg Enoxaparin Sodium (Lovenox -) 30 mg SQ DAILY [facility] Last Admin: 07/15/16 09:13 Dose: 30 mg Epoetin Abraham (Epogen -) 4,000 units IVPUSH ONCE ONE Stop: 07/15/16 06:42 Furosemide (Lasix -) 80 mg PO DAILY [facility] Last Admin: 07/15/16 09:13 Dose: 80 mg Hydromorphone HCl (Dilaudid Injection -) 1 mg IVPB Q4H PRN PRN Reason: PAIN Last Admin: 07/15/16 08:35 Dose: 1 mg Ceftriaxone Sodium (Rocephin 1gm Ivpb (Pre-Docked)) 50 mls @ 100 mls/hr IVPB DAILY [facility] Last Admin: 07/15/16 11:11 Dose: Not Given Insulin Aspart (Novolog Vial Sliding Scale -) 1 vial SQ ACHS [facility] PRN Reason: Protocol Last Admin: 07/15/16 11:16 Dose: 3 units Loratadine (Claritin -) 10 mg PO DAILY PRN PRN Reason: allergy Ondansetron HCl (Zofran Injection) 4 mg IVPB Q6H PRN PRN Reason: NAUSEA Polyethylene Glycol (Miralax (For Daily Use) -) 17 gm PO DAILY [facility] Last Admin: 07/15/16 09:14 Dose: 17 gm A/P 85 year old woman with PMhx of ESRD on HD (MWF), Afib on A/C, HTN, CAD s/p stents, CHF, DM who presented s/p fall with multiple fractures. #ESRD on HD for dialysis today with goal UF 2-2.5L as tolerated #Hyponatremia from fluid overload from excessive fluid intake advised fluid restriction counceled pt on importance of fluid restriction #Hyperkalemia Will use 2k bath with HD Low K diet #Intertrochanteric hip fx/Humerus Fracture s/p Gamma Nail Arm in immobilizer Pain control Ortho follow up - if pain increases may need imaging #CKD Related Anemia trend CBC Goal Hgb > 10 ARI with dialysis Massimo Melissa DO
--- NOTE | 2016-07-15 12:10 | PN ---
Progress Note, Physician Chief Complaint: Ms Mcdonnell says she is having leg pain. No cp, sob, n/v. - Current Medication List Current Medications: Active Medications Acetaminophen (Tylenol -) 650 mg PO Q4H PRN PRN Reason: FEVER OR PAIN Last Admin: 07/15/16 06:11 Dose: 650 mg Atorvastatin Calcium (Lipitor -) 10 mg PO HS [facility] Last Admin: 07/14/16 21:35 Dose: 10 mg Cholecalciferol (Vitamin D3 -) 1,000 unit PO DAILY [facility] Last Admin: 07/15/16 09:13 Dose: 1,000 unit Docusate Sodium (Colace -) 100 mg PO BID [facility] Last Admin: 07/15/16 09:13 Dose: 100 mg Enoxaparin Sodium (Lovenox -) 30 mg SQ DAILY [facility] Last Admin: 07/15/16 09:13 Dose: 30 mg Epoetin Abraham (Epogen -) 4,000 units IVPUSH ONCE ONE Stop: 07/15/16 06:42 Furosemide (Lasix -) 80 mg PO DAILY [facility] Last Admin: 07/15/16 09:13 Dose: 80 mg Hydromorphone HCl (Dilaudid Injection -) 1 mg IVPB Q4H PRN PRN Reason: PAIN Last Admin: 07/15/16 08:35 Dose: 1 mg Ceftriaxone Sodium (Rocephin 1gm Ivpb (Pre-Docked)) 50 mls @ 100 mls/hr IVPB DAILY [facility] Last Admin: 07/15/16 11:11 Dose: Not Given Insulin Aspart (Novolog Vial Sliding Scale -) 1 vial SQ ACHS [facility] PRN Reason: Protocol Last Admin: 07/15/16 11:16 Dose: 3 units Loratadine (Claritin -) 10 mg PO DAILY PRN PRN Reason: allergy Ondansetron HCl (Zofran Injection) 4 mg IVPB Q6H PRN PRN Reason: NAUSEA Polyethylene Glycol (Miralax (For Daily Use) -) 17 gm PO DAILY [facility] Last Admin: 07/15/16 09:14 Dose: 17 gm - Objective Vital Signs: Vital Signs Temperature 97.5 F L 07/15/16 10:00 Pulse Rate 105 H 07/15/16 10:00 Respiratory Rate 18 07/15/16 10:00 Blood Pressure 110/67 07/15/16 10:00 O2 Sat by Pulse Oximetry (%) 100 07/15/16 09:00 Constitutional: Yes: No Distress, Calm, Obese Cardiovascular: Yes: Pulse Irregular. No: Tachycardia, Gallop, Murmur, Rub Respiratory: Yes: Regular, CTA Bilaterally. No: Rales, Rhonchi, Wheezes Gastrointestinal: Yes: Normal Bowel Sounds, Soft. No: Distention, Tenderness Extremities: Yes: WNL Edema: Yes Edema: LLE: 1+, RLE: 1+ Labs: CBC, BMP 07/15/16 06:30 07/15/16 06:30 INR, PTT INR 1.18 (0.82-1.09) H 07/10/16 07:40 Problem List - Problems (1) Hip fracture Code(s): S72.009A - FRACTURE OF UNSP PART OF NECK OF UNSP FEMUR, INIT Qualifiers: Encounter type: initial encounter Fracture type: closed Laterality : right Qualified Code(s): S72.001A - Fracture of unspecified part of neck of right femur, initial encounter for closed fracture (2) (HFpEF) heart failure with preserved ejection fraction Code(s): I50.9 - HEART FAILURE, UNSPECIFIED (3) Bilateral leg edema Code(s): R60.0 - LOCALIZED EDEMA (4) Diabetes Code(s): E11.9 - TYPE 2 DIABETES MELLITUS WITHOUT COMPLICATIONS (5) HTN (hypertension) Code(s): I10 - ESSENTIAL (PRIMARY) HYPERTENSION (6) Hyperkalemia Code(s): E87.5 - HYPERKALEMIA (7) End stage renal failure on dialysis Code(s): N18.6 - END STAGE RENAL DISEASE Z99.2 - DEPENDENCE ON RENAL DIALYSIS (8) Obesity Code(s): E66.9 - OBESITY, UNSPECIFIED Qualifiers: Obesity severity: morbid (9) Anemia Code(s): D64.9 - ANEMIA, UNSPECIFIED (10) Hyponatremia Code(s): E87.1 - HYPO-OSMOLALITY AND HYPONATREMIA (11) UTI (urinary tract infection) Code(s): N39.0 - URINARY TRACT INFECTION, SITE NOT SPECIFIED Assessment/Plan (1) Hip fracture Assessment/Plan: -Ortho note reviewed -patient still with pain -continue PT as tolerated -patient and family with concerns about SNF discharge, explained to them that once medically stable important to get to rehab for intensive PT Code(s): S72.009A - FRACTURE OF UNSP PART OF NECK OF UNSP FEMUR, INIT Qualifiers: Encounter type: initial encounter Fracture type: closed Laterality : right Qualified Code(s): S72.001A - Fracture of unspecified part of neck of right femur, initial encounter for closed fracture (2) (HFpEF) heart failure with preserved ejection fraction Assessment/Plan: -continue lasix -leg edema unchanged Code(s): I50.9 - HEART FAILURE, UNSPECIFIED (3) Bilateral leg edema Assessment/Plan: -stable Code(s): R60.0 - LOCALIZED EDEMA (4) Diabetes Assessment/Plan: -diabetic/renal diet Code(s): E11.9 - TYPE 2 DIABETES MELLITUS WITHOUT COMPLICATIONS (5) HTN (hypertension) Assessment/Plan: -well controlled -continue lasix Code(s): I10 - ESSENTIAL (PRIMARY) HYPERTENSION (6) Hyperkalemia Assessment/Plan: -resolved with HD Code(s): E87.5 - HYPERKALEMIA (7) End stage renal failure on dialysis Assessment/Plan: -continue HD per nephrology Code(s): N18.6 - END STAGE RENAL DISEASE Z99.2 - DEPENDENCE ON RENAL DIALYSIS (8) Obesity Code(s): E66.9 - OBESITY, UNSPECIFIED Qualifiers: Obesity severity: morbid (9) Hyponatremia -nephrology following -fluid restriction -low sodium bath per nephrology (10) UTI with leukocytosis -urinalysis growing e. coli -continue rocephin -monitor WBCs (11) Anemia -secondary to renal function -continue epo
[2016-07-15] MEDS ORDERED: EPOETIN ALFA 2,000 UNITS/1 ML VIAL IVPUSH ONE (14:45)
--- NOTE | 2016-07-15 18:34 | PN ---
Progress Note (short form) - Note Progress Note: CC: pre-op clearance s: s/p hip surgery 07/10, still with significant pain. no cp sob palps dizzy. + mild orthopnea improved today + weakness. o: Current Medications Acetaminophen (Tylenol -) 650 mg PO Q4H PRN PRN Reason: FEVER OR PAIN Last Admin: 07/15/16 13:33 Dose: 650 mg Atorvastatin Calcium (Lipitor -) 10 mg PO HS [facility] Last Admin: 07/14/16 21:35 Dose: 10 mg Cholecalciferol (Vitamin D3 -) 1,000 unit PO DAILY [facility] Last Admin: 07/15/16 09:13 Dose: 1,000 unit Docusate Sodium (Colace -) 100 mg PO BID [facility] Last Admin: 07/15/16 09:13 Dose: 100 mg Enoxaparin Sodium (Lovenox -) 30 mg SQ DAILY [facility] Last Admin: 07/15/16 09:13 Dose: 30 mg Furosemide (Lasix -) 80 mg PO DAILY [facility] Last Admin: 07/15/16 09:13 Dose: 80 mg Hydromorphone HCl (Dilaudid Injection -) 1 mg IVPB Q4H PRN PRN Reason: PAIN Last Admin: 07/15/16 16:05 Dose: 1 mg Ceftriaxone Sodium (Rocephin 1gm Ivpb (Pre-Docked)) 50 mls @ 100 mls/hr IVPB DAILY [facility] Last Admin: 07/15/16 16:14 Dose: 100 mls/hr Insulin Aspart (Novolog Vial Sliding Scale -) 1 vial SQ ACHS [facility] PRN Reason: Protocol Last Admin: 07/15/16 17:05 Dose: 1 units Loratadine (Claritin -) 10 mg PO DAILY PRN PRN Reason: allergy Ondansetron HCl (Zofran Injection) 4 mg IVPB Q6H PRN PRN Reason: NAUSEA Polyethylene Glycol (Miralax (For Daily Use) -) 17 gm PO DAILY [facility] Last Admin: 07/15/16 09:14 Dose: 17 gm Vital Signs - 24 hr 07/14/16 07/14/16 07/14/16 19:08 21:00 22:52 Temperature 97.9 F 98 F Pulse Rate 91 H 92 H Respiratory 18 18 18 Rate Blood Pressure 127/79 118/62 O2 Sat by Pulse 98 Oximetry (%) 07/15/16 07/15/16 07/15/16 06:00 09:00 10:00 Temperature 98.0 F 97.5 F L Pulse Rate 107 H 105 H Respiratory 18 18 Rate Blood Pressure 103/59 110/67 O2 Sat by Pulse 100 Oximetry (%) 07/15/16 07/15/16 07/15/16 12:55 13:00 13:30 Temperature 98.4 F Pulse Rate 92 H 91 H 58 L Respiratory 18 18 18 Rate Blood Pressure 98/58 97/57 99/44 O2 Sat by Pulse Oximetry (%) 07/15/16 07/15/16 07/15/16 14:00 14:30 15:00 Temperature Pulse Rate 60 62 97 H Respiratory 18 18 18 Rate Blood Pressure 113/41 118/48 70/69 O2 Sat by Pulse Oximetry (%) 07/15/16 07/15/16 15:30 15:54 Temperature Pulse Rate 72 70 Respiratory 18 18 Rate Blood Pressure 110/40 120/72 O2 Sat by Pulse Oximetry (%) Intake & Output 07/13/16 07/14/16 07/15/16 07/16/16 07:59 07:59 07:59 07:59 Intake Total 500 250 325 350 Output Total 50 Balance 500 250 325 300 Weight 190 lb 190 lb 8 oz 186 lb 4 oz NAD. calm JVD difficult to assess due to neck habitus, but does not appear elevated RRR nl S1 S2. No S3, S4 or mrg bibasilar rales, nl effort + BS, soft, obese, ND, NT erythematous/indurated Venous stasis changes with 1+ dependent edema, warm ext No jaundice, no diaphoresis. aaox3 CBC, BMP 07/15/16 06:30 07/15/16 06:30 Laboratory Tests 07/15/16 06:30 Albumin 2.1 L EKG: afib 115 bpm. LAD. LAFB. incomplete RBBB. poor r wave progression. echo 08/2015: nl lv/rv. mild lae. valves wnl. no rvsp. A/p 85 yo with CAD s/p AZUL to RCA '14, Afib on eliquis, dCHF, HTN, HL, IDDM, GEORGE declines CPAP and CKD on HD who presents s/p fall c/b hip fracture. CAD s/p AZUL to RCA in 03/2014 - on statin. not on ASA b/c of hi risk gib and on AC. - stable, no anginal symptoms, nl lvef Afib - off AV alexandr blockade due to prior bradycardia. rate has been reasonably controlled off meds. - pain mgm't per pmd/surgery - Stop daily lovenox and resume home eliquis when ok by ortho chronic HFPEF, chronic venous insuff: - management of volume per renal/HD. Con't lasix per renal. HTN - BP controlled off anti-hypertensives. Currently running low s/p HD vs. other etiology (UTI/rising WBC). hgb stable, HL: - statin ESRD on HD/hyperkalemia/hyponatremia - volume mgm't with HD and po lasix per renal. GEORGE on CPAP - stable
[2016-07-15] MEDS: ATORVASTATIN CA 10 MG TABLET (FP) PO SCH (21:11)
[2016-07-16] MEDS: HYDROmorphone HCL CARPU-JECT 1 MG/1 ML DISP.SYRIN IVPB PRN ×3 (00:20→13:05)
[2016-07-16] MEDS: INSULIN SLIDING SCALE (NOVOLOG) 1 VIAL SQ SCH ×4 (06:24→21:27)
[2016-07-16 08:05] LABS: BASOPHIL 0.2 % (0-2.0); EOSINOPHIL 2.9 % (0-4.5); MCH 33.9 pg (25.7-33.7); MCHC 32.8 g/dl (32.0-36.0); MEAN CELL VOLUME 103.4 fl (80-96); MEAN PLT VOLUME 8.9 fl (7.5-11.1); NEUTROPHILS 84.2 % (42.8-82.8); PLATELET COUNT 230 K/MM3 (134-434); RDW 14.7 % (11.6-15.6); WHITE BLOOD COUNT 13.4 K/mm3 (4.0-10.0)
[2016-07-16 08:21] LABS: CREATININE 3.5 mg/dL (0.55-1.02)
[2016-07-16] MEDS: FUROSEMIDE 40 MG TABLET (FP) PO SCH (09:33)
[2016-07-16] MEDS: CEFTRIAXONE 50 ML IVPB SCH (09:33)
[2016-07-16] MEDS: POLYETHYLENE GLYCOL 3350 119 GM BTL PO SCH (09:33)
[2016-07-16] MEDS: CHOLECALCIFEROL (VITAMIN D3) 1,000 UNIT TABLET (FP) PO SCH (09:33)
[2016-07-16] MEDS: DOCUSATE SODIUM 100 MG CAPSULE (FP) PO SCH ×2 (09:33→21:15)
[2016-07-16] MEDS: ENOXAPARIN NA (PORCINE) 30 MG/0.3 ML DISP.SYRIN SQ SCH (09:33)
--- NOTE | 2016-07-16 11:37 | PN ---
Progress Note (short form) - Note Progress Note: Renal Follow up for ESRD on HD Pt seen and examined at the bedside s/p dialysis yesterday was only able to tolerate 1L UF because of hypotension pt continues to have pain denies any sob, chest pain, abd pain,N/V/d did PT this AM Vital Signs Temperature 98.0 F 07/15/16 22:00 Pulse Rate 98 H 07/15/16 22:00 Respiratory Rate 18 07/15/16 22:00 Blood Pressure 108/52 07/15/16 22:00 O2 Sat by Pulse Oximetry (%) 100 07/15/16 09:00 Intake & Output 07/13/16 07/14/16 07/15/16 07/16/16 23:59 23:59 23:59 23:59 Intake Total 250 325 450 Output Total 50 Balance 250 325 400 Weight 190 lb 190 lb 8 oz 186 lb 4 oz Gen: NAD, awake and alert CVS: irregular, no M/R Lungs: Dec BS Lung bases, no rales Abd: soft NT/ND Ext: Trace to 1+ edema in LE Access: Left ARM AVF CBC, BMP 07/16/16 06:45 07/16/16 06:45 Current Medications Acetaminophen (Tylenol -) 650 mg PO Q4H PRN PRN Reason: FEVER OR PAIN Last Admin: 07/15/16 13:33 Dose: 650 mg Atorvastatin Calcium (Lipitor -) 10 mg PO HS [facility] Last Admin: 07/15/16 21:11 Dose: 10 mg Cholecalciferol (Vitamin D3 -) 1,000 unit PO DAILY [facility] Last Admin: 07/16/16 09:33 Dose: 1,000 unit Docusate Sodium (Colace -) 100 mg PO BID [facility] Last Admin: 07/16/16 09:33 Dose: 100 mg Enoxaparin Sodium (Lovenox -) 30 mg SQ DAILY [facility] Last Admin: 07/16/16 09:33 Dose: 30 mg Furosemide (Lasix -) 80 mg PO DAILY [facility] Last Admin: 07/16/16 09:33 Dose: 80 mg Hydromorphone HCl (Dilaudid Injection -) 1 mg IVPB Q4H PRN PRN Reason: PAIN Last Admin: 07/16/16 06:21 Dose: 1 mg Ceftriaxone Sodium (Rocephin 1gm Ivpb (Pre-Docked)) 50 mls @ 100 mls/hr IVPB DAILY [facility] Last Admin: 07/16/16 09:33 Dose: 100 mls/hr Insulin Aspart (Novolog Vial Sliding Scale -) 1 vial SQ ACHS [facility] PRN Reason: Protocol Last Admin: 07/16/16 06:24 Dose: Not Given Loratadine (Claritin -) 10 mg PO DAILY PRN PRN Reason: allergy Ondansetron HCl (Zofran Injection) 4 mg IVPB Q6H PRN PRN Reason: NAUSEA Polyethylene Glycol (Miralax (For Daily Use) -) 17 gm PO DAILY [facility] Last Admin: 07/16/16 09:33 Dose: 17 gm A/P 85 year old woman with PMhx of ESRD on HD (MWF), Afib on A/C, HTN, CAD s/p stents, CHF, DM who presented s/p fall with multiple fractures. #ESRD on HD no indication for dialysis today next treatment tomorrow in the AM Renal Diet #Hyponatremia From excess fluid intake 1L fluid restriction daily #Hyperkalemia Diet changed to renal diet for HD tomorrow no need for kayexalate today #Intertrochanteric hip fx/Humerus Fracture s/p Gamma Nail Arm in immobilizer Pain control Ortho follow up - if pain increases may need imaging #CKD Related Anemia trend CBC Goal Hgb > 10 ARI with dialysis Massimo Melissa DO
[2016-07-16] MEDS ORDERED: INSULIN (NOVOLOG) ASPART 100 UNITS/ML 10ML VIAL ONE ×3 (11:55→21:16)
--- NOTE | 2016-07-16 13:01 | PN ---
Progress Note (short form) - Note Progress Note: CC: pre-op clearance s: s/p hip surgery 07/10, still with significant pain. no cp sob palps dizzy. + weakness. Incomplete HD session yesterday o: Current Medications Acetaminophen (Tylenol -) 650 mg PO Q4H PRN PRN Reason: FEVER OR PAIN Last Admin: 07/15/16 13:33 Dose: 650 mg Atorvastatin Calcium (Lipitor -) 10 mg PO HS [facility] Last Admin: 07/15/16 21:11 Dose: 10 mg Cholecalciferol (Vitamin D3 -) 1,000 unit PO DAILY [facility] Last Admin: 07/16/16 09:33 Dose: 1,000 unit Docusate Sodium (Colace -) 100 mg PO BID [facility] Last Admin: 07/16/16 09:33 Dose: 100 mg Enoxaparin Sodium (Lovenox -) 30 mg SQ DAILY [facility] Last Admin: 07/16/16 09:33 Dose: 30 mg Epoetin Abraham (Procrit -) 10,000 unit IVPUSH ONCE ONE Stop: 07/17/16 09:01 Furosemide (Lasix -) 80 mg PO DAILY [facility] Last Admin: 07/16/16 09:33 Dose: 80 mg Hydromorphone HCl (Dilaudid Injection -) 1 mg IVPB Q4H PRN PRN Reason: PAIN Last Admin: 07/16/16 06:21 Dose: 1 mg Ceftriaxone Sodium (Rocephin 1gm Ivpb (Pre-Docked)) 50 mls @ 100 mls/hr IVPB DAILY [facility] Last Admin: 07/16/16 09:33 Dose: 100 mls/hr Insulin Aspart (Novolog Vial Sliding Scale -) 1 vial SQ ACHS [facility] PRN Reason: Protocol Last Admin: 07/16/16 11:56 Dose: 3 units Loratadine (Claritin -) 10 mg PO DAILY [facility] PRN Reason: allergy Ondansetron HCl (Zofran Injection) 4 mg IVPB Q6H PRN PRN Reason: NAUSEA Polyethylene Glycol (Miralax (For Daily Use) -) 17 gm PO DAILY [facility] Last Admin: 07/16/16 09:33 Dose: 17 gm Vital Signs - 24 hr 07/15/16 07/15/16 07/15/16 13:30 14:00 14:30 Temperature Pulse Rate 58 L 60 62 Respiratory 18 18 18 Rate Blood Pressure 99/44 113/41 118/48 07/15/16 07/15/16 07/15/16 15:00 15:30 15:54 Temperature Pulse Rate 97 H 72 70 Respiratory 18 18 18 Rate Blood Pressure 70/69 110/40 120/72 07/15/16 07/15/16 07/16/16 18:00 22:00 10:00 Temperature 97.2 F L 98.0 F 97.7 F Pulse Rate 107 H 98 H 95 H Respiratory 20 18 18 Rate Blood Pressure 103/39 108/52 125/57 Intake & Output 07/14/16 07/15/16 07/16/16 07/17/16 07:59 07:59 07:59 07:59 Intake Total 250 325 450 Output Total 50 Balance 250 325 400 Weight 190 lb 8 oz 186 lb 4 oz NAD. calm JVD difficult to assess due to neck habitus, but does not appear elevated RRR nl S1 S2. No S3, S4 or mrg bibasilar rales, nl effort + BS, soft, obese, ND, NT erythematous/indurated Venous stasis changes with 1+ dependent edema, warm ext No jaundice, no diaphoresis. aaox3 CBC, BMP 07/16/16 06:45 07/16/16 06:45 EKG: afib 115 bpm. LAD. LAFB. incomplete RBBB. poor r wave progression. echo 08/2015: nl lv/rv. mild lae. valves wnl. no rvsp. A/p 85 yo with CAD s/p AZUL to RCA '14, Afib on eliquis, dCHF, HTN, HL, IDDM, GEORGE declines CPAP and CKD on HD who presents s/p fall c/b hip fracture. CAD s/p AZUL to RCA in 03/2014 - on statin. not on ASA b/c of hi risk gib and on AC. - stable, no anginal symptoms, nl lvef Afib - off AV alexandr blockade due to prior bradycardia. rate has been reasonably controlled off meds. - pain mgm't per pmd/surgery - Stop daily lovenox and resume home eliquis when ok by ortho chronic HFPEF, chronic venous insuff: - management of volume per renal/HD. Con't lasix per renal. Continues to remain volume up, HD session 2/6 limited by hypotension. HTN - BP controlled off anti-hypertensives. Currently running low s/p HD vs. other etiology (UTI/rising WBC). hgb stable HL: - statin ESRD on HD/hyperkalemia/hyponatremia - volume mgm't with HD and po lasix per renal. GEORGE on CPAP - stable
--- NOTE | 2016-07-16 15:24 | PN ---
Progress Note (short form) - Note Progress Note: ID consult dictated imp/reccd 85 year old female esrd/hd, s/p fall 07/09 with right femur and right distal humerus fracture she is s/p gamma nail 2 (POD #6) asked to see for leukocytosis she feels well c/o incisional pain no fevers or chills no sob no dysuria was treated periop with cefazolin and then ceftriaxone for Ecoli uti c/o constipation has not had a bm since admission PE notable for volume overload- she has pitting edema and serous drainage from the surgical site no erythema or purulence noted post op leukocytosis (POD #6) suggest blood cultures with HD in am agree with d/c rocephin treat constipation leukocytosis appears to be improving if leukocytosis persists, chest xray as well
[2016-07-16] MEDS ORDERED: LACTULOSE 20 GM/30 ML UDC (FOR ORAL USE ONLY) PO PRN (15:34)
--- NOTE | 2016-07-16 16:57 | PN ---
Progress Note, Physician Chief Complaint: Ms Mcdonnell continues to have pain. No cp, sob, n/v. RN concerned about drainage from wound. - Current Medication List Current Medications: Active Medications Acetaminophen (Tylenol -) 650 mg PO Q4H PRN PRN Reason: FEVER OR PAIN Last Admin: 07/15/16 13:33 Dose: 650 mg Atorvastatin Calcium (Lipitor -) 10 mg PO HS [facility] Last Admin: 07/15/16 21:11 Dose: 10 mg Cholecalciferol (Vitamin D3 -) 1,000 unit PO DAILY [facility] Last Admin: 07/16/16 09:33 Dose: 1,000 unit Docusate Sodium (Colace -) 100 mg PO BID [facility] Last Admin: 07/16/16 09:33 Dose: 100 mg Enoxaparin Sodium (Lovenox -) 30 mg SQ DAILY [facility] Last Admin: 07/16/16 09:33 Dose: 30 mg Epoetin Abraham (Procrit -) 10,000 unit IVPUSH ONCE ONE Stop: 07/17/16 09:01 Furosemide (Lasix -) 80 mg PO DAILY [facility] Last Admin: 07/16/16 09:33 Dose: 80 mg Insulin Aspart (Novolog Vial Sliding Scale -) 1 vial SQ ACHS [facility] PRN Reason: Protocol Last Admin: 07/16/16 11:56 Dose: 3 units Lactulose (Cephulac (Oral Use)) 20 gm PO Q8H PRN PRN Reason: CONSTIPATION Loratadine (Claritin -) 10 mg PO DAILY PRN PRN Reason: allergy Ondansetron HCl (Zofran Injection) 4 mg IVPB Q6H PRN PRN Reason: NAUSEA Oxycodone HCl (Roxicodone -) 10 mg PO Q4H PRN PRN Reason: PAIN Polyethylene Glycol (Miralax (For Daily Use) -) 17 gm PO DAILY [facility] Last Admin: 07/16/16 09:33 Dose: 17 gm - Objective Vital Signs: Vital Signs Temperature 97.5 F L 07/16/16 13:36 Pulse Rate 88 07/16/16 13:36 Respiratory Rate 20 07/16/16 13:36 Blood Pressure 125/57 07/16/16 10:00 O2 Sat by Pulse Oximetry (%) 100 07/15/16 09:00 Constitutional: Yes: No Distress, Calm, Obese Cardiovascular: Yes: Regular Rate and Rhythm. No: Gallop, Murmur, Rub Respiratory: Yes: Regular, CTA Bilaterally. No: Rales, Rhonchi, Wheezes Gastrointestinal: Yes: Normal Bowel Sounds, Soft. No: Distention, Tenderness Extremities: Yes: Other (wound with minimal drainage, serosanguinous) Edema: Yes Edema: LLE: 2+, RLE: 2+ Labs: CBC, BMP 07/16/16 06:45 07/16/16 06:45 INR, PTT INR 1.18 (0.82-1.09) H 07/10/16 07:40 Problem List - Problems (1) Hip fracture Code(s): S72.009A - FRACTURE OF UNSP PART OF NECK OF UNSP FEMUR, INIT Qualifiers: Encounter type: initial encounter Fracture type: closed Laterality : right Qualified Code(s): S72.001A - Fracture of unspecified part of neck of right femur, initial encounter for closed fracture (2) (HFpEF) heart failure with preserved ejection fraction Code(s): I50.9 - HEART FAILURE, UNSPECIFIED (3) Bilateral leg edema Code(s): R60.0 - LOCALIZED EDEMA (4) Diabetes Code(s): E11.9 - TYPE 2 DIABETES MELLITUS WITHOUT COMPLICATIONS (5) HTN (hypertension) Code(s): I10 - ESSENTIAL (PRIMARY) HYPERTENSION (6) Hyperkalemia Code(s): E87.5 - HYPERKALEMIA (7) End stage renal failure on dialysis Code(s): N18.6 - END STAGE RENAL DISEASE Z99.2 - DEPENDENCE ON RENAL DIALYSIS (8) Obesity Code(s): E66.9 - OBESITY, UNSPECIFIED Qualifiers: Obesity severity: morbid (9) Anemia Code(s): D64.9 - ANEMIA, UNSPECIFIED (10) Hyponatremia Code(s): E87.1 - HYPO-OSMOLALITY AND HYPONATREMIA (11) UTI (urinary tract infection) Code(s): N39.0 - URINARY TRACT INFECTION, SITE NOT SPECIFIED Assessment/Plan (1) Hip fracture Assessment/Plan: -ortho to evaluate wound -ID consulted to evaluate for wound infection since with persistent leukocytosis Code(s): S72.009A - FRACTURE OF UNSP PART OF NECK OF UNSP FEMUR, INIT Qualifiers: Encounter type: initial encounter Fracture type: closed Laterality : right Qualified Code(s): S72.001A - Fracture of unspecified part of neck of right femur, initial encounter for closed fracture (2) (HFpEF) heart failure with preserved ejection fraction Assessment/Plan: -continue lasix -leg edema unchanged Code(s): I50.9 - HEART FAILURE, UNSPECIFIED (3) Bilateral leg edema Assessment/Plan: -stable Code(s): R60.0 - LOCALIZED EDEMA (4) Diabetes Assessment/Plan: -diabetic/renal diet Code(s): E11.9 - TYPE 2 DIABETES MELLITUS WITHOUT COMPLICATIONS (5) HTN (hypertension) Assessment/Plan: -well controlled -continue lasix Code(s): I10 - ESSENTIAL (PRIMARY) HYPERTENSION (6) Hyperkalemia Assessment/Plan: -resolved with HD Code(s): E87.5 - HYPERKALEMIA (7) End stage renal failure on dialysis Assessment/Plan: -continue HD per nephrology Code(s): N18.6 - END STAGE RENAL DISEASE Z99.2 - DEPENDENCE ON RENAL DIALYSIS (8) Obesity Code(s): E66.9 - OBESITY, UNSPECIFIED Qualifiers: Obesity severity: morbid (9) Hyponatremia -nephrology following -fluid restriction (10) UTI with leukocytosis -s/p full course of rocephin -ID consulted to evaluate if needs further antibiotics (11) Anemia -secondary to renal function -continue epo
--- NOTE | 2016-07-16 17:40 | CONS ---
DATE OF CONSULTATION: DATE OF DICTATION: 07/16/2016 DICTATED BY: Ministerio Lozoya MD REASON FOR CONSULTATION: I was asked to see the patient for leukocytosis. HISTORY OF PRESENT ILLNESS: This is an 85-year-old woman with a history of end stage renal disease. She is on dialysis. She has a history of coronary artery disease and obesity as well. She was walking to the bathroom at home and she sustained a fall. She fractured her right femur as well as her right distal humerus and she as admitted on the . She went to the operating room and had a Gamma nail placed on the 10 of July. I am asked to see her for persistent leukocytosis. She is awake and alert. She denies fevers, chills, nausea, vomiting, diarrhea or dysuria. She does state she has not had a bowel movement since admission and she denies any abdominal symptoms. With the help of Physical Therapy, she has sat up out of bed. She has been treated with cefazolin perioperatively and then ceftriaxone for E. coli UTI, which was completed today. ALLERGIES: CODEINE. PAST MEDICAL HISTORY: Notable for atrial fibrillation, coronary artery disease, congestive heart failure, hypertension, hyperlipidemia, sleep apnea, end-stage renal disease. She is on dialysis via fistula in her right arm, anemia, gout, diabetes. She has a history of atrial fibrillation and is on Eliquis. She has a history of diastolic heart failure. She has been, in the past, treated for sepsis. In 2015, had group A strep sepsis and cellulitis of her legs. PAST SURGICAL HISTORY: Notable for cataract removable bilaterally, cholecystectomy, umbilical hernia repair x2, hysterectomy, and right knee replacement. MEDICATIONS: At home include Lipitor, vitamin D3, iron, Claritin, Levemir insulin, Ecotrin, furosemide, tramadol. SOCIAL HISTORY: She lives with her . She is . She uses a walker and she has 4 daughters. REVIEW OF SYSTEMS: There was no loss of consciousness with the fall and currently, she is resting comfortably. Per the nurse, she has no skin breakdown. FAMILY HISTORY: Unremarkable. PHYSICAL EXAMINATION: General: She is awake and alert. Vital Signs: Temperature 97.5, pulse 88, blood pressure 125/57, respiratory rate 20. She weighs 186 pounds, and she is 5 feet 3. HEENT: She is normocephalic. Her eyes are anicteric. NECK: Supple. LUNGS: Diminished breath sounds at the bases. HEART: Regular rate and rhythm. ABDOMEN: Soft. She has an umbilical hernia. EXTREMITIES: She has her right arm in an immobilizer but the fistula site has a dressing intact with no erythema or drainage. She has pitting edema of both her legs. The edema in both legs extends up to the thigh and she has serosanguineous from the hip incision site. There is no surrounding erythema. There is no purulence. LABORATORY DATA: Her white count today is 13.4, hemoglobin 8.7, platelets are 230. INR is 1.1 on admission. Her BUN and creatinine are 49 and 3.5. Urine culture grew an E. coli that was resistant to Levaquin only. IMAGING: Chest x-ray done on admission was negative for infiltrate. X-rays of the hip and arm showed fractures. IN SUMMARY: This is an 85-year-old woman postoperative day No. 6 status post Gamma nail of her right hip with leukocytosis. Her physical examination is notable for volume overload. There are no signs of any wound infection. I would suggest we obtain blood cultures with dialysis. I agree with stopping her antibiotics. I would treat her constipation at this time. If the leukocytosis persists, I would get a chest x-ray as well. Further recommendations to follow based on her clinical course. KADI BIANCHI M.D. [id number]
[2016-07-16] MEDS: ACETAMINOPHEN 325 MG TABLET (FP) PO PRN (18:37)
[2016-07-16] MEDS: oxyCODONE HCL 5 MG TABLET PO PRN ×2 (18:37→22:20)
[2016-07-16] MEDS: ATORVASTATIN CA 10 MG TABLET (FP) PO SCH (21:15)
[2016-07-17] MEDS: INSULIN SLIDING SCALE (NOVOLOG) 1 VIAL SQ SCH ×4 (06:08→22:28)
[2016-07-17] MEDS: oxyCODONE HCL 5 MG TABLET PO PRN ×3 (06:09→20:45)
[2016-07-17] MEDS: FUROSEMIDE 40 MG TABLET (FP) PO SCH (10:18)
[2016-07-17] MEDS: CHOLECALCIFEROL (VITAMIN D3) 1,000 UNIT TABLET (FP) PO SCH (10:19)
[2016-07-17] MEDS: POLYETHYLENE GLYCOL 3350 119 GM BTL PO SCH (10:19)
[2016-07-17] MEDS: DOCUSATE SODIUM 100 MG CAPSULE (FP) PO SCH ×2 (10:19→21:17)
--- NOTE | 2016-07-17 10:38 | PN ---
Progress Note (short form) - Note Progress Note: AVSS COMFORTABLE BANDAGES DRY AND INTACT CALF SOFT AND NT NVI IMP: DOING WELL PLAN: OOB,PT, DC PLANNING
--- NOTE | 2016-07-17 10:48 | PN ---
Progress Note (short form) - Note Progress Note: looks well alert and smiling still no BM Vital Signs Period Temp Pulse Resp BP Sys/Adams Pulse Ox Last 24 Hr 97.4 F-98.2 F 88-105 20-20 94-120/44-66 cor-rrr lungs clear abd soft,slightly distended ext +edema CBC, BMP 07/16/16 06:45 07/16/16 06:45 Microbiology 07/16/16 15:00 Gram Stain - Final Hip - Right a/p leukocytosis s/p hip fracture with gamma nail 07/10 esrd/hd constipation repeat labs and blood cultures with HD observe off antibiotics
[2016-07-17] MEDS: ENOXAPARIN NA (PORCINE) 30 MG/0.3 ML DISP.SYRIN SQ SCH (10:50)
--- NOTE | 2016-07-17 11:11 | PN ---
Progress Note (short form) - Note Progress Note: s: no cp sob palps dizzy o: Vital Signs Period Temp Pulse Resp BP Sys/Adams Pulse Ox Last 24 Hr 97.4 F-98.2 F 88-105 20-20 94-120/44-66 NAD. calm JVD difficult to assess due to neck habitus, but does not appear elevated RRR nl S1 S2. No S3, S4 or mrg cta bl, nl effort + BS, soft, obese, ND, NT erythematous/indurated Venous stasis changes with trace LE edema, warm ext No jaundice, no diaphoresis. aaox3 Current Medications Generic Name Dose Route Start Last Admin Trade Name Freq PRN Reason Stop Dose Admin Acetaminophen 650 mg 07/10/16 16:54 07/16/16 18:37 Tylenol - PO 650 mg Q4H PRN Administration FEVER OR PAIN Atorvastatin Calcium 10 mg 07/10/16 22:00 07/16/16 21:15 Lipitor - PO 10 mg HS [facility] Administration Cholecalciferol 1,000 unit 07/12/16 17:00 07/17/16 10:19 Vitamin D3 - PO 1,000 unit DAILY [facility] Administration Docusate Sodium 100 mg 07/10/16 22:00 07/17/16 10:19 Colace - PO 100 mg BID [facility] Administration Enoxaparin Sodium 30 mg 07/12/16 17:00 07/17/16 10:50 Lovenox - SQ 30 mg DAILY [facility] Administration Epoetin Abraham 10,000 unit 07/17/16 09:00 Procrit - IVPUSH 07/17/16 09:01 ONCE ONE Furosemide 80 mg 07/12/16 17:00 07/17/16 10:18 Lasix - PO 80 mg DAILY [facility] Administration Insulin Aspart 1 vial 07/10/16 22:00 07/17/16 06:08 Novolog Vial Sliding Scale - SQ Not Given ACHS [facility] Protocol Lactulose 20 gm 07/16/16 15:34 Cephulac (Oral Use) PO Q8H PRN CONSTIPATION Loratadine 10 mg 07/10/16 16:54 Claritin - PO DAILY PRN allergy Ondansetron HCl 4 mg 07/10/16 16:54 Zofran Injection IVPB Q6H PRN NAUSEA Oxycodone HCl 10 mg 07/16/16 14:37 07/17/16 06:09 Roxicodone - PO 10 mg Q4H PRN Administration PAIN Polyethylene Glycol 17 gm 07/11/16 10:00 07/17/16 10:19 Miralax (For Daily Use) - PO 17 gm DAILY [facility] Administration CBC, BMP 07/16/16 06:45 07/16/16 06:45 EKG: afib 115 bpm. LAD. LAFB. incomplete RBBB. poor r wave progression. echo 08/2015: nl lv/rv. mild lae. valves wnl. no rvsp. A/p: 85 yo with CAD s/p AZUL to RCA '14, Afib on eliquis, dCHF, HTN, HL, IDDM, GEORGE declines CPAP and CKD on HD who presents s/p fall c/b hip fracture. CAD s/p AZUL to RCA in 03/2014 - on statin. not on ASA b/c of hi risk gib and on AC. - stable, no anginal symptoms, nl lvef Afib - off AV alexandr blockade due to prior bradycardia. rate has been reasonably controlled off meds. - pain mgm't per pmd/surgery - Stop daily lovenox and resume home eliquis 2.5 bid (renal, age related dose) when ok by ortho chronic HFPEF, chronic venous insuff: - stable, volume mgm't with HD and po lasix per renal. HTN - BP controlled off anti-hypertensives. HL: - statin ESRD on HD/hyperkalemia/hyponatremia - volume mgm't with HD and po lasix per renal. GEORGE on CPAP - stable
[2016-07-17] MEDS ORDERED: EPOETIN ALFA 10,000 UNIT/1 ML VIAL IVPUSH ONE (12:00)
[2016-07-17] MEDS: ACETAMINOPHEN 325 MG TABLET (FP) PO PRN ×2 (14:02→20:46)
[2016-07-17 14:06] LABS: MCH 33.1 pg (25.7-33.7); MCHC 32.1 g/dl (32.0-36.0); MEAN PLT VOLUME 9.1 fl (7.5-11.1); PLATELET COUNT 272 K/MM3 (134-434); RDW 14.7 % (11.6-15.6); WHITE BLOOD COUNT 14.5 K/mm3 (4.0-10.0)
[2016-07-17 14:29] LABS: CREATININE 4.5 mg/dL (0.55-1.02); PHOSPHOROUS 5.1 mg/dL (2.5-4.9)
[2016-07-17] MEDS: LACTULOSE 20 GM/30 ML UDC (FOR ORAL USE ONLY) PO SCH ×2 (16:33→21:17)
--- NOTE | 2016-07-17 16:39 | PN ---
Progress Note (short form) - Note Progress Note: Renal Follow up for ESRD on HD Pt seen and examined during dialysis BP stable, access with good function no acute complaints pain is better controlled family concerned about constipation Vital Signs Temperature 97.8 F 07/17/16 12:25 Pulse Rate 69 07/17/16 16:15 Respiratory Rate 18 07/17/16 16:15 Blood Pressure 121/79 07/17/16 16:15 O2 Sat by Pulse Oximetry (%) 100 07/15/16 09:00 Intake & Output 07/14/16 07/15/16 07/16/16 07/17/16 23:59 23:59 23:59 23:59 Intake Total 325 450 520 440 Output Total 50 1 Balance 325 400 519 440 Weight 190 lb 8 oz 186 lb 4 oz 204 lb 3 oz Gen: NAD, awake and alert CVS: irregular, no M/R Lungs: Dec BS Lung bases, no rales Abd: soft NT/ND Ext: Trace to 1+ edema in LE Access: Left ARM AVF CBC, BMP 07/17/16 12:30 07/17/16 12:30 Current Medications Acetaminophen (Tylenol -) 650 mg PO Q4H PRN PRN Reason: FEVER OR PAIN Last Admin: 07/17/16 14:02 Dose: 650 mg Atorvastatin Calcium (Lipitor -) 10 mg PO HS [facility] Last Admin: 07/16/16 21:15 Dose: 10 mg Cholecalciferol (Vitamin D3 -) 1,000 unit PO DAILY [facility] Last Admin: 07/17/16 10:19 Dose: 1,000 unit Docusate Sodium (Colace -) 100 mg PO BID [facility] Last Admin: 07/17/16 10:19 Dose: 100 mg Enoxaparin Sodium (Lovenox -) 30 mg SQ DAILY [facility] Last Admin: 07/17/16 10:50 Dose: 30 mg Furosemide (Lasix -) 80 mg PO DAILY [facility] Last Admin: 07/17/16 10:18 Dose: 80 mg Insulin Aspart (Novolog Vial Sliding Scale -) 1 vial SQ ACHS [facility] PRN Reason: Protocol Last Admin: 07/17/16 11:55 Dose: 1 units Lactulose (Cephulac (Oral Use)) 20 gm PO TID [facility] Last Admin: 07/17/16 16:33 Dose: 20 gm Loratadine (Claritin -) 10 mg PO DAILY PRN PRN Reason: allergy Ondansetron HCl (Zofran Injection) 4 mg IVPB Q6H PRN PRN Reason: NAUSEA Oxycodone HCl (Roxicodone -) 10 mg PO Q4H PRN PRN Reason: PAIN Last Admin: 07/17/16 16:33 Dose: 10 mg Polyethylene Glycol (Miralax (For Daily Use) -) 17 gm PO DAILY [facility] Last Admin: 07/17/16 10:19 Dose: 17 gm A/P 85 year old woman with PMhx of ESRD on HD (MWF), Afib on A/C, HTN, CAD s/p stents, CHF, DM who presented s/p fall with multiple fractures. #ESRD on HD tolerated dialysis well useing 2 k bath #Hyponatremia From excess fluid intake 1L fluid restriction daily expect improvement with UF/Dialysis #Hyperkalemia Diet changed to renal diet using 2k bath with HD check K tomorrow #Intertrochanteric hip fx/Humerus Fracture s/p Gamma Nail Arm in immobilizer Pain control Ortho follow up - if pain increases may need imaging #CKD Related Anemia trend CBC Goal Hgb > 10 ARI with dialysis Massimo Melissa DO
--- NOTE | 2016-07-17 16:44 | PN ---
Progress Note, Physician Chief Complaint: Ms Mcdonnell complains of pain everywhere, says she always does terrible in HD. Pain is in her arm and leg. No cp, sob, n/v. - Current Medication List Current Medications: Active Medications Acetaminophen (Tylenol -) 650 mg PO Q4H PRN PRN Reason: FEVER OR PAIN Last Admin: 07/17/16 14:02 Dose: 650 mg Atorvastatin Calcium (Lipitor -) 10 mg PO HS [facility] Last Admin: 07/16/16 21:15 Dose: 10 mg Cholecalciferol (Vitamin D3 -) 1,000 unit PO DAILY [facility] Last Admin: 07/17/16 10:19 Dose: 1,000 unit Docusate Sodium (Colace -) 100 mg PO BID [facility] Last Admin: 07/17/16 10:19 Dose: 100 mg Enoxaparin Sodium (Lovenox -) 30 mg SQ DAILY [facility] Last Admin: 07/17/16 10:50 Dose: 30 mg Furosemide (Lasix -) 80 mg PO DAILY [facility] Last Admin: 07/17/16 10:18 Dose: 80 mg Insulin Aspart (Novolog Vial Sliding Scale -) 1 vial SQ ACHS [facility] PRN Reason: Protocol Last Admin: 07/17/16 11:55 Dose: 1 units Lactulose (Cephulac (Oral Use)) 20 gm PO TID [facility] Last Admin: 07/17/16 16:33 Dose: 20 gm Loratadine (Claritin -) 10 mg PO DAILY PRN PRN Reason: allergy Ondansetron HCl (Zofran Injection) 4 mg IVPB Q6H PRN PRN Reason: NAUSEA Oxycodone HCl (Roxicodone -) 10 mg PO Q4H PRN PRN Reason: PAIN Last Admin: 07/17/16 16:33 Dose: 10 mg Polyethylene Glycol (Miralax (For Daily Use) -) 17 gm PO DAILY [facility] Last Admin: 07/17/16 10:19 Dose: 17 gm - Objective Vital Signs: Vital Signs Temperature 97.8 F 07/17/16 12:25 Pulse Rate 69 07/17/16 16:15 Respiratory Rate 18 07/17/16 16:15 Blood Pressure 121/79 07/17/16 16:15 O2 Sat by Pulse Oximetry (%) 100 07/15/16 09:00 Constitutional: Yes: No Distress, Calm, Obese Cardiovascular: Yes: Regular Rate and Rhythm. No: Gallop, Murmur, Rub Respiratory: Yes: Regular, CTA Bilaterally. No: Rales, Rhonchi, Wheezes Gastrointestinal: Yes: Normal Bowel Sounds, Soft. No: Distention, Tenderness Extremities: Yes: WNL Edema: Yes Edema: LLE: 2+, RLE: 2+ Labs: CBC, BMP 07/17/16 12:30 07/17/16 12:30 INR, PTT INR 1.18 (0.82-1.09) H 07/10/16 07:40 Problem List - Problems (1) Hip fracture Code(s): S72.009A - FRACTURE OF UNSP PART OF NECK OF UNSP FEMUR, INIT Qualifiers: Encounter type: initial encounter Fracture type: closed Laterality : right Qualified Code(s): S72.001A - Fracture of unspecified part of neck of right femur, initial encounter for closed fracture (2) (HFpEF) heart failure with preserved ejection fraction Code(s): I50.9 - HEART FAILURE, UNSPECIFIED (3) Bilateral leg edema Code(s): R60.0 - LOCALIZED EDEMA (4) Diabetes Code(s): E11.9 - TYPE 2 DIABETES MELLITUS WITHOUT COMPLICATIONS (5) HTN (hypertension) Code(s): I10 - ESSENTIAL (PRIMARY) HYPERTENSION (6) Hyperkalemia Code(s): E87.5 - HYPERKALEMIA (7) End stage renal failure on dialysis Code(s): N18.6 - END STAGE RENAL DISEASE Z99.2 - DEPENDENCE ON RENAL DIALYSIS (8) Obesity Code(s): E66.9 - OBESITY, UNSPECIFIED Qualifiers: Obesity severity: morbid (9) Anemia Code(s): D64.9 - ANEMIA, UNSPECIFIED (10) Hyponatremia Code(s): E87.1 - HYPO-OSMOLALITY AND HYPONATREMIA (11) UTI (urinary tract infection) Code(s): N39.0 - URINARY TRACT INFECTION, SITE NOT SPECIFIED Assessment/Plan (1) Hip fracture Assessment/Plan: -still with pain -continue oxycodone -will need placement Code(s): S72.009A - FRACTURE OF UNSP PART OF NECK OF UNSP FEMUR, INIT Qualifiers: Encounter type: initial encounter Fracture type: closed Laterality : right Qualified Code(s): S72.001A - Fracture of unspecified part of neck of right femur, initial encounter for closed fracture (2) (HFpEF) heart failure with preserved ejection fraction Assessment/Plan: -continue lasix -leg edema unchanged Code(s): I50.9 - HEART FAILURE, UNSPECIFIED (3) Bilateral leg edema Assessment/Plan: -stable Code(s): R60.0 - LOCALIZED EDEMA (4) Diabetes Assessment/Plan: -diabetic/renal diet Code(s): E11.9 - TYPE 2 DIABETES MELLITUS WITHOUT COMPLICATIONS (5) HTN (hypertension) Assessment/Plan: -well controlled -continue lasix Code(s): I10 - ESSENTIAL (PRIMARY) HYPERTENSION (6) Hyperkalemia Assessment/Plan: -resolved with HD Code(s): E87.5 - HYPERKALEMIA (7) End stage renal failure on dialysis Assessment/Plan: -continue HD per nephrology Code(s): N18.6 - END STAGE RENAL DISEASE Z99.2 - DEPENDENCE ON RENAL DIALYSIS (8) Obesity Code(s): E66.9 - OBESITY, UNSPECIFIED Qualifiers: Obesity severity: morbid (9) Hyponatremia -nephrology following -fluid restriction (10) Leukocytosis -s/p full course of antibiotics for UTI -however still with elevated WBCs -cultures sent -ID following (11) Anemia -secondary to renal function -continue epo
[2016-07-17 17:53] LABS: CREATININE 1.5 mg/dL (0.55-1.02)
[2016-07-17] MEDS: ATORVASTATIN CA 10 MG TABLET (FP) PO SCH (21:17)
[2016-07-17] MEDS ORDERED: INSULIN (NOVOLOG) ASPART 100 UNITS/ML 10ML VIAL ONE (22:17)
[2016-07-18] MEDS: oxyCODONE HCL 5 MG TABLET PO PRN ×2 (05:28→10:33)
[2016-07-18] MEDS: ACETAMINOPHEN 325 MG TABLET (FP) PO PRN ×2 (05:29→10:34)
[2016-07-18] MEDS: LACTULOSE 20 GM/30 ML UDC (FOR ORAL USE ONLY) PO SCH ×3 (05:30→21:26)
[2016-07-18] MEDS ORDERED: INSULIN (NOVOLOG) ASPART 100 UNITS/ML 10ML VIAL ONE ×4 (06:23→21:22)
[2016-07-18] MEDS: INSULIN SLIDING SCALE (NOVOLOG) 1 VIAL SQ SCH ×4 (06:30→21:26)
--- NOTE | 2016-07-18 09:03 | PN ---
Progress Note, Physician Chief Complaint: Pain right arm and right leg and hip. History of Present Illness: Patient with multiple medical problems including DM and chronic renal failure on dialysis fell at home when she tried to walk without her walker and fell sustaining fractures of hip and upper and lower extremities. She is being followed with BGM's and continues dialysis here. Still no BM but good appetite. - Current Medication List Current Medications: Active Medications Acetaminophen (Tylenol -) 650 mg PO Q4H PRN PRN Reason: FEVER OR PAIN Last Admin: 07/18/16 05:29 Dose: 650 mg Atorvastatin Calcium (Lipitor -) 10 mg PO HS [facility] Last Admin: 07/17/16 21:17 Dose: 10 mg Cholecalciferol (Vitamin D3 -) 1,000 unit PO DAILY [facility] Last Admin: 07/17/16 10:19 Dose: 1,000 unit Docusate Sodium (Colace -) 100 mg PO BID [facility] Last Admin: 07/17/16 21:17 Dose: 100 mg Enoxaparin Sodium (Lovenox -) 30 mg SQ DAILY [facility] Last Admin: 07/17/16 10:50 Dose: 30 mg Furosemide (Lasix -) 80 mg PO DAILY [facility] Last Admin: 07/17/16 10:18 Dose: 80 mg Insulin Aspart (Novolog Vial Sliding Scale -) 1 vial SQ ACHS [facility] PRN Reason: Protocol Last Admin: 07/18/16 06:30 Dose: 1 units Lactulose (Cephulac (Oral Use)) 20 gm PO TID [facility] Last Admin: 07/18/16 05:30 Dose: 20 gm Loratadine (Claritin -) 10 mg PO DAILY PRN PRN Reason: allergy Ondansetron HCl (Zofran Injection) 4 mg IVPB Q6H PRN PRN Reason: NAUSEA Oxycodone HCl (Roxicodone -) 10 mg PO Q4H PRN PRN Reason: PAIN Last Admin: 07/18/16 05:28 Dose: 10 mg Polyethylene Glycol (Miralax (For Daily Use) -) 17 gm PO DAILY [facility] Last Admin: 07/17/16 10:19 Dose: 17 gm - Objective Vital Signs: Vital Signs Temperature 97.4 F L 07/18/16 05:46 Pulse Rate 90 07/18/16 05:46 Respiratory Rate 20 07/18/16 05:46 Blood Pressure 123/60 07/18/16 05:46 O2 Sat by Pulse Oximetry (%) 100 07/17/16 20:30 Constitutional: Yes: Calm, Pallor Cardiovascular: Yes: Pulse Irregular Respiratory: Yes: Diminished Gastrointestinal: Yes: Abdomen, Obese, Distention, Hypoactive Bowel Sounds Genitourinary: No: Cooper Present Extremities: Yes: Other (SCD's) Neurological: Yes: Alert Labs: CBC, BMP 07/17/16 12:30 07/17/16 16:02 INR, PTT INR 1.18 (0.82-1.09) H 07/10/16 07:40 Problem List - Problems (1) Hip fracture Assessment/Plan: Had surgery after fall at home; will need SNF. Code(s): S72.009A - FRACTURE OF UNSP PART OF NECK OF UNSP FEMUR, INIT Qualifiers: Encounter type: initial encounter Fracture type: closed Laterality : right Qualified Code(s): S72.001A - Fracture of unspecified part of neck of right femur, initial encounter for closed fracture (2) UTI (urinary tract infection) Assessment/Plan: Had Rx; stopped yesterday. Code(s): N39.0 - URINARY TRACT INFECTION, SITE NOT SPECIFIED (3) Acute hyponatremia Assessment/Plan: Await AM Lab. Code(s): E87.1 - HYPO-OSMOLALITY AND HYPONATREMIA (4) Afib Assessment/Plan: On Rx. Code(s): I48.91 - UNSPECIFIED ATRIAL FIBRILLATION (5) [id number] kidney injury Assessment/Plan: Getting dialysis Rx. Code(s): N17.9 - ACUTE KIDNEY FAILURE, UNSPECIFIED N18.9 - CHRONIC KIDNEY DISEASE, UNSPECIFIED (6) Diabetes mellitus out of control Assessment/Plan: BGM being followed. Code(s): E11.65 - TYPE 2 DIABETES MELLITUS WITH HYPERGLYCEMIA (7) Constipation due to opioid therapy Assessment/Plan: On 3 meds for stool; may need realistor Rx. Will increase Miralax to BID Code(s): K59.09 - OTHER CONSTIPATION T40.2X5A - ADVERSE EFFECT OF OTHER OPIOIDS, INITIAL ENCOUNTER
--- NOTE | 2016-07-18 09:12 | PN ---
Progress Note (short form) - Note Progress Note: s: no cp sob palps dizzy o: Vital Signs Period Temp Pulse Resp BP Sys/Adams Pulse Ox Last 24 Hr 97.4 F-98.7 F 67-106 18-20 110-155/35-97 100 NAD. calm JVD difficult to assess due to neck habitus, but does not appear elevated RRR nl S1 S2. No S3, S4 or mrg cta bl, nl effort + BS, soft, obese, ND, NT erythematous/indurated Venous stasis changes with trace LE edema, warm ext No jaundice, no diaphoresis. aaox3 Current Medications Generic Name Dose Route Start Last Admin Trade Name Freq PRN Reason Stop Dose Admin Acetaminophen 650 mg 07/10/16 16:54 07/18/16 05:29 Tylenol - PO 650 mg Q4H PRN Administration FEVER OR PAIN Atorvastatin Calcium 10 mg 07/10/16 22:00 07/17/16 21:17 Lipitor - PO 10 mg HS DREW Administration Cholecalciferol 1,000 unit 07/12/16 17:00 07/17/16 10:19 Vitamin D3 - PO 1,000 unit DAILY DREW Administration Docusate Sodium 100 mg 07/10/16 22:00 07/17/16 21:17 Colace - PO 100 mg BID DREW Administration Enoxaparin Sodium 30 mg 07/12/16 17:00 07/17/16 10:50 Lovenox - SQ 30 mg DAILY DREW Administration Furosemide 80 mg 07/12/16 17:00 07/17/16 10:18 Lasix - PO 80 mg DAILY DREW Administration Insulin Aspart 1 vial 07/10/16 22:00 07/18/16 06:30 Novolog Vial Sliding Scale - SQ 1 units ACHS DREW Administration Protocol Lactulose 20 gm 07/17/16 15:15 07/18/16 05:30 Cephulac (Oral Use) PO 20 gm TID DREW Administration Loratadine 10 mg 07/10/16 16:54 Claritin - PO DAILY PRN allergy Ondansetron HCl 4 mg 07/10/16 16:54 Zofran Injection IVPB Q6H PRN NAUSEA Oxycodone HCl 10 mg 07/16/16 14:37 07/18/16 05:28 Roxicodone - PO 10 mg Q4H PRN Administration PAIN Polyethylene Glycol 17 gm 07/18/16 10:00 Miralax (For Daily Use) - PO BID DREW CBC, BMP 07/17/16 12:30 07/17/16 16:02 EKG: afib 115 bpm. LAD. LAFB. incomplete RBBB. poor r wave progression. echo 08/2015: nl lv/rv. mild lae. valves wnl. no rvsp. A/p: 85 yo with CAD s/p AZUL to RCA '14, Afib on eliquis, dCHF, HTN, HL, IDDM, GEORGE declines CPAP and CKD on HD who presents s/p fall c/b hip fracture. CAD s/p AZUL to RCA in 03/2014 - on statin. not on ASA b/c of hi risk gib and on AC. - stable, no anginal symptoms, nl lvef Afib - off AV alexandr blockade due to prior bradycardia. rate has been reasonably controlled off meds. - pain mgm't per pmd/surgery - Stop daily lovenox and resume home eliquis 2.5 bid (renal, age related dose) when ok by ortho chronic HFPEF, chronic venous insuff: - stable, volume mgm't with HD and po lasix per renal. HTN - BP controlled off anti-hypertensives. HL: - statin ESRD on HD/hyperkalemia/hyponatremia - volume mgm't with HD and po lasix per renal. GEORGE on CPAP - stable
[2016-07-18 10:25] LABS: BASOPHIL 0.4 % (0-2.0); EOSINOPHIL 1.9 % (0-4.5); MCH 33.4 pg (25.7-33.7); MCHC 32.1 g/dl (32.0-36.0); MEAN CELL VOLUME 104.1 fl (80-96); MEAN PLT VOLUME 8.7 fl (7.5-11.1); NEUTROPHILS 83.7 % (42.8-82.8); PLATELET COUNT 274 K/MM3 (134-434); RDW 14.9 % (11.6-15.6); WHITE BLOOD COUNT 14.5 K/mm3 (4.0-10.0)
[2016-07-18] MEDS: POLYETHYLENE GLYCOL 3350 119 GM BTL PO SCH ×2 (10:31→21:26)
[2016-07-18] MEDS: ENOXAPARIN NA (PORCINE) 30 MG/0.3 ML DISP.SYRIN SQ SCH (10:32)
[2016-07-18] MEDS: DOCUSATE SODIUM 100 MG CAPSULE (FP) PO SCH ×2 (10:34→21:26)
[2016-07-18] MEDS: FUROSEMIDE 40 MG TABLET (FP) PO SCH (10:34)
[2016-07-18] MEDS: CHOLECALCIFEROL (VITAMIN D3) 1,000 UNIT TABLET (FP) PO SCH (10:35)
[2016-07-18 10:43] LABS: CALCIUM 8.2 mg/dL (8.5-10.1); MAGNESIUM 1.9 mg/dL (1.8-2.4); PHOSPHOROUS 3.8 mg/dL (2.5-4.9)
--- NOTE | 2016-07-18 12:01 | PN ---
Progress Note (short form) - Note Progress Note: Renal Follow up for ESRD on HD Pt seen and examined at the bedside sitting in chair complains of pain in right hip, wants to go back in bed s/p pain medications Vital Signs Temperature 97.4 F L 07/18/16 05:46 Pulse Rate 96 H 07/18/16 10:00 Respiratory Rate 20 07/18/16 10:00 Blood Pressure 108/50 07/18/16 10:00 O2 Sat by Pulse Oximetry (%) 96 07/18/16 09:00 Intake & Output 07/15/16 07/16/16 07/17/16 07/18/16 23:59 23:59 23:59 23:59 Intake Total 450 520 540 Output Total 50 1 Balance 400 519 540 Weight 186 lb 4 oz 204 lb 3 oz 204 lb 6 oz Gen: NAD, awake and alert CVS: irregular, no M/R Lungs: Dec BS Lung bases, no rales Abd: soft NT/ND Ext: Trace to 1+ edema in LE Access: Left ARM AVF CBC, BMP 07/18/16 09:44 07/18/16 09:44 Current Medications Acetaminophen (Tylenol -) 650 mg PO Q4H PRN PRN Reason: FEVER OR PAIN Last Admin: 07/18/16 10:34 Dose: 650 mg Atorvastatin Calcium (Lipitor -) 10 mg PO HS [facility] Last Admin: 07/17/16 21:17 Dose: 10 mg Cholecalciferol (Vitamin D3 -) 1,000 unit PO DAILY DREW Last Admin: 07/18/16 10:35 Dose: 1,000 unit Docusate Sodium (Colace -) 100 mg PO BID DREW Last Admin: 07/18/16 10:34 Dose: 100 mg Enoxaparin Sodium (Lovenox -) 30 mg SQ DAILY DREW Last Admin: 07/18/16 10:32 Dose: 30 mg Furosemide (Lasix -) 80 mg PO DAILY DREW Last Admin: 07/18/16 10:34 Dose: 80 mg Insulin Aspart (Novolog Vial Sliding Scale -) 1 vial SQ ACHS DREW PRN Reason: Protocol Last Admin: 07/18/16 06:30 Dose: 1 units Lactulose (Cephulac (Oral Use)) 20 gm PO TID DREW Last Admin: 07/18/16 05:30 Dose: 20 gm Loratadine (Claritin -) 10 mg PO DAILY PRN PRN Reason: allergy Ondansetron HCl (Zofran Injection) 4 mg IVPB Q6H PRN PRN Reason: NAUSEA Oxycodone HCl (Roxicodone -) 10 mg PO Q4H PRN PRN Reason: PAIN Last Admin: 07/18/16 10:33 Dose: 10 mg Polyethylene Glycol (Miralax (For Daily Use) -) 17 gm PO BID DREW Last Admin: 07/18/16 10:31 Dose: 17 gm A/P 85 year old woman with PMhx of ESRD on HD (MWF), Afib on A/C, HTN, CAD s/p stents, CHF, DM who presented s/p fall with multiple fractures. #ESRD on HD s/p dialysis yesterday no acute indication dialysis today #Hyponatremia From excess fluid intake 1L fluid restriction daily #Hyperkalemia Renal diet 2k bath with HD #Intertrochanteric hip fx/Humerus Fracture s/p Gamma Nail Arm in immobilizer Pain control #CKD Related Anemia trend CBC Goal Hgb > 10 ARI with dialysis Massimo Melissa DO
[2016-07-18] MEDS: ATORVASTATIN CA 10 MG TABLET (FP) PO SCH (21:26)
[2016-07-19] MEDS: oxyCODONE HCL 5 MG TABLET PO PRN ×4 (01:41→23:04)
[2016-07-19] MEDS: ACETAMINOPHEN 325 MG TABLET (FP) PO PRN ×3 (01:42→18:27)
[2016-07-19] MEDS: LACTULOSE 20 GM/30 ML UDC (FOR ORAL USE ONLY) PO SCH ×3 (06:01→21:32)
[2016-07-19] MEDS: INSULIN SLIDING SCALE (NOVOLOG) 1 VIAL SQ SCH ×4 (06:09→21:38)
[2016-07-19] MEDS ORDERED: EPOETIN ALFA 20,000 UNIT/1 ML VIAL IVPUSH ONE (08:00)
[2016-07-19 08:28] LABS: MCH 33.9 pg (25.7-33.7); MCHC 32.9 g/dl (32.0-36.0); MEAN PLT VOLUME 8.8 fl (7.5-11.1); PLATELET COUNT 310 K/MM3 (134-434); RDW 14.8 % (11.6-15.6); WHITE BLOOD COUNT 18.5 K/mm3 (4.0-10.0)
--- NOTE | 2016-07-19 08:38 | PN ---
Progress Note (short form) - Note Progress Note: Ortho Pt seen and examined s/p right IM gamma nail, right distal humerus fx Selected Entries 07/19/16 05:48 Temperature 98.2 F Pulse Rate 102 H Respiratory 20 Rate Blood Pressure 140/64 Laboratory Tests 07/19/16 07:46 WBC 18.5 H Hgb 8.5 L Hct 25.8 L Plt Count 310 incision c/d/i, calf soft, nt nvi immobilizer intact a/p PT if able oob if able pain control dvt ppx d/c planning
[2016-07-19 08:56] LABS: CALCIUM 8.4 mg/dL (8.5-10.1); CREATININE 3.8 mg/dL (0.55-1.02); PHOSPHOROUS 4.4 mg/dL (2.5-4.9)
[2016-07-19] MEDS ORDERED: IRON SUCROSE INJECTION 100 MG in SODIUM CHLORIDE 95 ML IVPB ONE (09:00)
[2016-07-19] MEDS: POLYETHYLENE GLYCOL 3350 119 GM BTL PO SCH ×2 (09:43→21:33)
[2016-07-19] MEDS: CHOLECALCIFEROL (VITAMIN D3) 1,000 UNIT TABLET (FP) PO SCH ×2 (09:43→14:32)
[2016-07-19] MEDS: DOCUSATE SODIUM 100 MG CAPSULE (FP) PO SCH ×2 (09:43→21:32)
[2016-07-19] MEDS: ENOXAPARIN NA (PORCINE) 30 MG/0.3 ML DISP.SYRIN SQ SCH (09:43)
[2016-07-19] MEDS: FUROSEMIDE 40 MG TABLET (FP) PO SCH ×2 (09:43→14:32)
--- NOTE | 2016-07-19 11:41 | PN ---
Progress Note (short form) - Note Progress Note: s: no cp sob palps dizzy; just finished HD; still with pain s/p surgery o: Vital Signs Period Temp Pulse Resp BP Sys/Adams Pulse Ox Last 24 Hr 97.2 F-98.2 F 59-102 18-20 93-140/30-99 96 NAD. calm JVD difficult to assess due to neck habitus, but does not appear elevated RRR nl S1 S2. No S3, S4 or mrg cta bl, nl effort + BS, soft, obese, ND, NT Venous stasis changes with trace LE edema No jaundice, no diaphoresis. aaox3 Current Medications Generic Name Dose Route Start Last Admin Trade Name Freq PRN Reason Stop Dose Admin Acetaminophen 650 mg 07/10/16 16:54 07/19/16 06:19 Tylenol - PO 650 mg Q4H PRN Administration FEVER OR PAIN Apixaban 2.5 mg 07/19/16 22:00 Eliquis - PO BID DREW Atorvastatin Calcium 10 mg 07/10/16 22:00 07/18/16 21:26 Lipitor - PO 10 mg HS DREW Administration Cholecalciferol 1,000 unit 07/12/16 17:00 07/19/16 09:43 Vitamin D3 - PO Not Given DAILY [facility] Docusate Sodium 100 mg 07/10/16 22:00 07/19/16 09:43 Colace - PO Not Given BID DREW Enoxaparin Sodium 30 mg 07/12/16 17:00 07/19/16 09:43 Lovenox - SQ 07/19/16 14:00 Not Given DAILY DREW Furosemide 80 mg 07/12/16 17:00 07/19/16 09:43 Lasix - PO Not Given DAILY [facility] Insulin Aspart 1 vial 07/10/16 22:00 07/19/16 11:35 Novolog Vial Sliding Scale - SQ Not Given ACHS [facility] Protocol Lactulose 20 gm 07/17/16 15:15 07/19/16 06:01 Cephulac (Oral Use) PO 20 gm TID DREW Administration Loratadine 10 mg 07/10/16 16:54 Claritin - PO DAILY PRN allergy Ondansetron HCl 4 mg 07/10/16 16:54 Zofran Injection IVPB Q6H PRN NAUSEA Oxycodone HCl 10 mg 07/16/16 14:37 07/19/16 06:19 Roxicodone - PO 10 mg Q4H PRN Administration PAIN Polyethylene Glycol 17 gm 07/18/16 10:00 07/19/16 09:43 Miralax (For Daily Use) - PO Not Given BID DREW CBC, BMP 07/19/16 07:46 07/19/16 07:46 EKG: afib 115 bpm. LAD. LAFB. incomplete RBBB. poor r wave progression. echo 08/2015: nl lv/rv. mild lae. valves wnl. no rvsp. A/p: 85 yo with CAD s/p AZUL to RCA ', Afib on eliquis, dCHF, HTN, HL, IDDM, GEORGE declines CPAP and CKD on HD who presents s/p fall c/b hip fracture. CAD s/p AZUL to RCA in 03/2014 - on statin. not on ASA b/c of hi risk gib and on AC. - stable, no anginal symptoms, nl lvef Afib - off AV alexandr blockade due to prior bradycardia. rate has been reasonably controlled off meds. - pain mgm't per pmd/surgery - today will stop daily lovenox and resume home eliquis 2.5 bid (renal, age related dose) chronic HFPEF, chronic venous insuff: - stable, volume mgm't with HD and po lasix per renal. HTN - BP controlled off anti-hypertensives. HL: - statin ESRD on HD/hyperkalemia/hyponatremia - volume mgm't with HD and po lasix per renal. GEORGE on CPAP - stable
[2016-07-19] MEDS ORDERED: MINERAL OIL ENEMA 133 ML ENEMA PR ONE (12:23)
--- NOTE | 2016-07-19 12:51 | PN ---
Progress Note (short form) - Note Progress Note: Renal Follow up for ESRD on HD Pt seen and examined with dialysis BP stable Goal UF 2.5-3L AVF with good flow pt without complaints Vital Signs Temperature 97.8 F 07/19/16 07:40 Pulse Rate 70 07/19/16 11:25 Respiratory Rate 18 07/19/16 11:25 Blood Pressure 132/70 07/19/16 11:25 O2 Sat by Pulse Oximetry (%) 96 07/18/16 20:34 Intake & Output 07/16/16 07/17/16 07/18/16 07/19/16 23:59 23:59 23:59 23:59 Intake Total 520 540 660 Output Total 1 0 Balance 519 540 660 Weight 204 lb 3 oz 204 lb 6 oz 211 lb Gen: NAD, awake and alert CVS: irregular, no M/R Lungs: Dec BS Lung bases, no rales Abd: soft NT/ND Ext: Trace to 1+ edema in LE Access: Left ARM AVF CBC, BMP 07/19/16 07:46 07/19/16 07:46 Current Medications Acetaminophen (Tylenol -) 650 mg PO Q4H PRN PRN Reason: FEVER OR PAIN Last Admin: 07/19/16 06:19 Dose: 650 mg Apixaban (Eliquis -) 2.5 mg PO BID [facility] Atorvastatin Calcium (Lipitor -) 10 mg PO HS [facility] Last Admin: 07/18/16 21:26 Dose: 10 mg Cholecalciferol (Vitamin D3 -) 1,000 unit PO DAILY [facility] Last Admin: 07/19/16 09:43 Dose: Not Given Docusate Sodium (Colace -) 100 mg PO BID [facility] Last Admin: 07/19/16 09:43 Dose: Not Given Enoxaparin Sodium (Lovenox -) 30 mg SQ DAILY [facility] Stop: 07/19/16 14:00 Last Admin: 07/19/16 09:43 Dose: Not Given Furosemide (Lasix -) 80 mg PO DAILY [facility] Last Admin: 07/19/16 09:43 Dose: Not Given Insulin Aspart (Novolog Vial Sliding Scale -) 1 vial SQ ACHS [facility] PRN Reason: Protocol Last Admin: 07/19/16 11:35 Dose: Not Given Lactulose (Cephulac (Oral Use)) 20 gm PO TID [facility] Last Admin: 07/19/16 06:01 Dose: 20 gm Loratadine (Claritin -) 10 mg PO DAILY PRN PRN Reason: allergy Ondansetron HCl (Zofran Injection) 4 mg IVPB Q6H PRN PRN Reason: NAUSEA Oxycodone HCl (Roxicodone -) 10 mg PO Q4H PRN PRN Reason: PAIN Last Admin: 07/19/16 06:19 Dose: 10 mg Polyethylene Glycol (Miralax (For Daily Use) -) 17 gm PO BID DREW Last Admin: 07/19/16 09:43 Dose: Not Given A/P 85 year old woman with PMhx of ESRD on HD (MWF), Afib on A/C, HTN, CAD s/p stents, CHF, DM who presented s/p fall with multiple fractures. #ESRD on HD stable dialysis today #Hyponatremia From excess fluid intake 1L fluid restriction daily will improve with UF with dialysis #Hyperkalemia Renal diet 2k bath with HD #Intertrochanteric hip fx/Humerus Fracture s/p Gamma Nail Arm in immobilizer Pain control #CKD Related Anemia trend CBC Goal Hgb > 10 ARI with dialysis #Constapation Mineral oil enema today Massimo Melissa DO
--- NOTE | 2016-07-19 13:15 | PN ---
Progress Note, Physician Chief Complaint: Ms Mcdonnell complains mainly of constipation. Says her pain is controlled when she is not moving. No cp, sob, n/v. - Current Medication List Current Medications: Active Medications Acetaminophen (Tylenol -) 650 mg PO Q4H PRN PRN Reason: FEVER OR PAIN Last Admin: 07/19/16 06:19 Dose: 650 mg Apixaban (Eliquis -) 2.5 mg PO BID [facility] Atorvastatin Calcium (Lipitor -) 10 mg PO HS [facility] Last Admin: 07/18/16 21:26 Dose: 10 mg Cholecalciferol (Vitamin D3 -) 1,000 unit PO DAILY [facility] Last Admin: 07/19/16 09:43 Dose: Not Given Docusate Sodium (Colace -) 100 mg PO BID [facility] Last Admin: 07/19/16 09:43 Dose: Not Given Enoxaparin Sodium (Lovenox -) 30 mg SQ DAILY [facility] Stop: 07/19/16 14:00 Last Admin: 07/19/16 09:43 Dose: Not Given Furosemide (Lasix -) 80 mg PO DAILY [facility] Last Admin: 07/19/16 09:43 Dose: Not Given Insulin Aspart (Novolog Vial Sliding Scale -) 1 vial SQ ACHS [facility] PRN Reason: Protocol Last Admin: 07/19/16 11:35 Dose: Not Given Lactulose (Cephulac (Oral Use)) 20 gm PO TID [facility] Last Admin: 07/19/16 06:01 Dose: 20 gm Loratadine (Claritin -) 10 mg PO DAILY PRN PRN Reason: allergy Ondansetron HCl (Zofran Injection) 4 mg IVPB Q6H PRN PRN Reason: NAUSEA Oxycodone HCl (Roxicodone -) 10 mg PO Q4H PRN PRN Reason: PAIN Last Admin: 07/19/16 06:19 Dose: 10 mg Polyethylene Glycol (Miralax (For Daily Use) -) 17 gm PO BID [facility] Last Admin: 07/19/16 09:43 Dose: Not Given - Objective Vital Signs: Vital Signs Temperature 97.8 F 07/19/16 07:40 Pulse Rate 70 07/19/16 11:25 Respiratory Rate 18 07/19/16 11:25 Blood Pressure 132/70 07/19/16 11:25 O2 Sat by Pulse Oximetry (%) 96 07/18/16 20:34 Constitutional: Yes: No Distress, Calm, Obese Cardiovascular: Yes: Regular Rate and Rhythm. No: Gallop, Murmur, Rub Respiratory: Yes: Regular, CTA Bilaterally. No: Rales, Rhonchi, Wheezes Gastrointestinal: Yes: Normal Bowel Sounds, Distention, Other (firm). No: Tenderness Extremities: Yes: WNL Edema: No Labs: CBC, BMP 07/19/16 07:46 07/19/16 07:46 INR, PTT INR 1.18 (0.82-1.09) H 07/10/16 07:40 Problem List - Problems (1) Hip fracture Code(s): S72.009A - FRACTURE OF UNSP PART OF NECK OF UNSP FEMUR, INIT Qualifiers: Encounter type: initial encounter Fracture type: closed Laterality : right Qualified Code(s): S72.001A - Fracture of unspecified part of neck of right femur, initial encounter for closed fracture (2) (HFpEF) heart failure with preserved ejection fraction Code(s): I50.9 - HEART FAILURE, UNSPECIFIED (3) Bilateral leg edema Code(s): R60.0 - LOCALIZED EDEMA (4) Diabetes Code(s): E11.9 - TYPE 2 DIABETES MELLITUS WITHOUT COMPLICATIONS (5) HTN (hypertension) Code(s): I10 - ESSENTIAL (PRIMARY) HYPERTENSION (6) Hyperkalemia Code(s): E87.5 - HYPERKALEMIA (7) End stage renal failure on dialysis Code(s): N18.6 - END STAGE RENAL DISEASE Z99.2 - DEPENDENCE ON RENAL DIALYSIS (8) Obesity Code(s): E66.9 - OBESITY, UNSPECIFIED Qualifiers: Obesity severity: morbid (9) Anemia Code(s): D64.9 - ANEMIA, UNSPECIFIED (10) Hyponatremia Code(s): E87.1 - HYPO-OSMOLALITY AND HYPONATREMIA (11) UTI (urinary tract infection) Code(s): N39.0 - URINARY TRACT INFECTION, SITE NOT SPECIFIED Assessment/Plan (1) Hip fracture Assessment/Plan: -still with pain -continue oxycodone -SNF placement Code(s): S72.009A - FRACTURE OF UNSP PART OF NECK OF UNSP FEMUR, INIT Qualifiers: Encounter type: initial encounter Fracture type: closed Laterality : right Qualified Code(s): S72.001A - Fracture of unspecified part of neck of right femur, initial encounter for closed fracture (2) (HFpEF) heart failure with preserved ejection fraction Assessment/Plan: -continue lasix -leg edema unchanged Code(s): I50.9 - HEART FAILURE, UNSPECIFIED (3) Bilateral leg edema Assessment/Plan: -stable Code(s): R60.0 - LOCALIZED EDEMA (4) Diabetes Assessment/Plan: -diabetic/renal diet Code(s): E11.9 - TYPE 2 DIABETES MELLITUS WITHOUT COMPLICATIONS (5) HTN (hypertension) Assessment/Plan: -well controlled -continue lasix Code(s): I10 - ESSENTIAL (PRIMARY) HYPERTENSION (6) Hyperkalemia Assessment/Plan: -resolved with HD Code(s): E87.5 - HYPERKALEMIA (7) End stage renal failure on dialysis Assessment/Plan: -continue HD per nephrology Code(s): N18.6 - END STAGE RENAL DISEASE Z99.2 - DEPENDENCE ON RENAL DIALYSIS (8) Obesity Code(s): E66.9 - OBESITY, UNSPECIFIED Qualifiers: Obesity severity: morbid (9) Hyponatremia -nephrology following -fluid restriction (10) Leukocytosis -remains elevated -ID following (11) Anemia -secondary to renal function -continue epo (12) Severe constipation -on miralax, colace, and lactulose -still without bowel movement -enema
--- NOTE | 2016-07-19 14:05 | PN ---
Progress Note (short form) - Note Progress Note: had an enema and a BM today just returned from HD still with right arm/right hip pain Vital Signs Period Temp Pulse Resp BP Sys/Adams Pulse Ox Last 24 Hr 97.2 F-98.2 F 59-102 18-20 74-140/30-99 96 cor-rrr lungs decreased bs at bases abd firm +BS, nt ext +edema hip incision clean and dry, elbow is swollen and ecchymotic CBC, BMP 07/19/16 07:46 07/19/16 07:46 Microbiology 07/16/16 15:00 Hip - Right Gram Stain - Final 07/16/16 15:00 Hip - Right Wound Culture - Preliminary Staphylococcus Coagulase Neg 07/17/16 12:15 Blood - Peripheral Venous Blood Culture - Preliminary NO GROWTH OBTAINED AFTER 24 HOURS, INCUBATION TO CONTINUE FOR 4 DAYS. 07/17/16 12:15 Blood - Peripheral Venous Blood Culture - Preliminary NO GROWTH OBTAINED AFTER 24 HOURS, INCUBATION TO CONTINUE FOR 4 DAYS. 07/10/16 07:00 Urine - Urine Cooper Urine Culture - Final Escherichia Coli a/p leukocytosis- repeat cxray - encourage incentive spirometry s/p rocephin for UTI- d/sylvain 07/16 s/p hip fracture s/p distal humerus fracture esrd/hd
[2016-07-19] MEDS ORDERED: PT OWN MED DRAWER 7, Y5N ONE (14:24)
[2016-07-19] MEDS: APIXABAN 2.5 MG TABLET PO SCH ×2 (14:32→21:32)
[2016-07-19] MEDS ORDERED: INSULIN (NOVOLOG) ASPART 100 UNITS/ML 10ML VIAL ONE ×2 (16:33→21:37)
[2016-07-19] MEDS: ATORVASTATIN CA 10 MG TABLET (FP) PO SCH (21:32)
[2016-07-20] MEDS: INSULIN SLIDING SCALE (NOVOLOG) 1 VIAL SQ SCH ×4 (06:14→22:31)
[2016-07-20] MEDS: LACTULOSE 20 GM/30 ML UDC (FOR ORAL USE ONLY) PO SCH ×3 (06:14→22:30)
[2016-07-20] MEDS: oxyCODONE HCL 5 MG TABLET PO PRN ×2 (06:15→19:47)
[2016-07-20 08:25] LABS: BASOPHIL 0.5 % (0-2.0); EOSINOPHIL 2.9 % (0-4.5); MCH 33.2 pg (25.7-33.7); MCHC 31.5 g/dl (32.0-36.0); MEAN CELL VOLUME 105.6 fl (80-96); MEAN PLT VOLUME 8.7 fl (7.5-11.1); NEUTROPHILS 78.3 % (42.8-82.8); PLATELET COUNT 334 K/MM3 (134-434); RDW 14.8 % (11.6-15.6)
[2016-07-20 08:51] LABS: CALCIUM 8.7 mg/dL (8.5-10.1); CREATININE 2.7 mg/dL (0.55-1.02); MAGNESIUM 1.9 mg/dL (1.8-2.4); PHOSPHOROUS 3.1 mg/dL (2.5-4.9)
[2016-07-20] MEDS ORDERED: PT OWN MED DRAWER 7, Y5N ONE ×2 (09:46→22:18)
[2016-07-20] MEDS: FUROSEMIDE 40 MG TABLET (FP) PO SCH (09:48)
[2016-07-20] MEDS: CHOLECALCIFEROL (VITAMIN D3) 1,000 UNIT TABLET (FP) PO SCH (09:48)
[2016-07-20] MEDS: DOCUSATE SODIUM 100 MG CAPSULE (FP) PO SCH ×2 (09:48→22:30)
[2016-07-20] MEDS: APIXABAN 2.5 MG TABLET PO SCH ×2 (09:48→22:29)
[2016-07-20] MEDS: POLYETHYLENE GLYCOL 3350 119 GM BTL PO SCH ×2 (09:49→22:31)
[2016-07-20 10:07] LABS: ANISOCYTOSIS 2+; HYPOCHROMIA 1+; PLATELET COMMENT2 NO CLOTTING DETECTED; PLATELET ESTIMATE ADEQUATE (NORMAL); POIKILOCYTOSIS 2+; POLYCHROMASIA 1+
[2016-07-20 10:08] LABS: STOMATOCYTE 1+
[2016-07-20] MEDS ORDERED: INSULIN (NOVOLOG) ASPART 100 UNITS/ML 10ML VIAL ONE ×2 (10:54→16:17)
--- NOTE | 2016-07-20 11:36 | PN ---
Progress Note, Physician Chief Complaint: afib, chf History of Present Illness: denies sob, orthopnea, cp, palpit, incr leg swelling - Current Medication List Current Medications: Active Medications Acetaminophen (Tylenol -) 650 mg PO Q4H PRN PRN Reason: FEVER OR PAIN Last Admin: 07/19/16 18:27 Dose: 650 mg Apixaban (Eliquis -) 2.5 mg PO BID [facility] Last Admin: 07/20/16 09:48 Dose: 2.5 mg Atorvastatin Calcium (Lipitor -) 10 mg PO HS [facility] Last Admin: 07/19/16 21:32 Dose: 10 mg Cholecalciferol (Vitamin D3 -) 1,000 unit PO DAILY [facility] Last Admin: 07/20/16 09:48 Dose: 1,000 unit Docusate Sodium (Colace -) 100 mg PO BID [facility] Last Admin: 07/20/16 09:48 Dose: 100 mg Furosemide (Lasix -) 80 mg PO DAILY [facility] Last Admin: 07/20/16 09:48 Dose: 80 mg Insulin Aspart (Novolog Vial Sliding Scale -) 1 vial SQ ACHS [facility] PRN Reason: Protocol Last Admin: 07/20/16 10:55 Dose: 1 units Lactulose (Cephulac (Oral Use)) 20 gm PO TID [facility] Last Admin: 07/20/16 06:14 Dose: 20 gm Loratadine (Claritin -) 10 mg PO DAILY PRN PRN Reason: allergy Ondansetron HCl (Zofran Injection) 4 mg IVPB Q6H PRN PRN Reason: NAUSEA Oxycodone HCl (Roxicodone -) 10 mg PO Q4H PRN PRN Reason: PAIN Last Admin: 07/20/16 06:15 Dose: 10 mg Polyethylene Glycol (Miralax (For Daily Use) -) 17 gm PO BID [facility] Last Admin: 07/20/16 09:49 Dose: 17 gm - Objective Vital Signs: Vital Signs Temperature 97.5 F L 07/20/16 06:00 Pulse Rate 89 07/20/16 06:00 Respiratory Rate 20 07/20/16 06:00 Blood Pressure 100/43 07/20/16 06:00 O2 Sat by Pulse Oximetry (%) 96 07/19/16 21:00 Constitutional: Yes: No Distress, Calm, Obese Cardiovascular: Yes: Pulse Irregular, S1, S2. No: Gallop, Murmur Respiratory: Yes: Regular, CTA Bilaterally. No: Accessory Muscle Use, Rales, Wheezes Extremities: No: Cold Edema: Yes (at baseline (nonpitting)) Neurological: Yes: Alert, Oriented Psychiatric: No: Agitated Labs: CBC, BMP 07/20/16 07:35 07/20/16 07:35 INR, PTT INR 1.18 (0.82-1.09) H 07/10/16 07:40 Assessment/Plan echo 08/2015: nl lv/rv. mild lae. valves wnl. no rvsp. A/p: 85 yo with CAD s/p AZUL to RCA ', Afib on eliquis, dCHF, HTN, HL, IDDM, GEORGE declines CPAP and CKD on HD who presents s/p fall c/b hip fracture. CAD s/p AZUL to RCA in 03/2014 - on statin. not on ASA b/c of hi risk gib and on AC. - stable, no anginal symptoms, nl lvef Afib - off AV alexandr blockade due to prior bradycardia (AT/AFL with slow conduction). - rate here is overall controlled--no change meds. - pain mgm't per pmd/surgery - d/w'd pt, and dtr at bedside today--she was (again) confused about her meds and eliquis (rx'd months ago as outpt after in-depth discussion with pt and , b/c she proved incapable of complying with warfarin/INRs) had fallen off as outpt; - they express concerns over s.e./bleeding risk; i advised them that her CHADS VASC score = 7, with approx 9%/year risk of stroke; i advised them that in general population studied, the risk of serious life-threatening bleeding with eliquis is far lower than this % on an annual basis; - i d/w'd them at length her recent fall--she had been stable for 3 yrs without falls with regular walker use and no more stairs (sleeps on ground floor now), but this time didn't use walker when got up from her chair and suddenly lost her balance; they feel she can arrange to always have walker with her and hence avoid repeated falls; - i advised them ASA will have much less (if any) stroke prevention benefits, but we can use that instead if they decline NOAC, and told them if she starts it but decides to stop it at home they must inform me so i can change her to ASA ; also advised them if she is having issues with balance or falls despite walker use, to inform me so we can reconsider risk:benefit equation; they repeatedly expressed their understanding of all above and she verbalized she would like to try eliquis for now and will follow above instrxns chronic HFPEF, chronic venous insuff: - stable, no signif volume excess (chronic LE edema is stable) - volume mgm't with HD and po lasix per renal. HTN - BP controlled off anti-hypertensives. HL: - statin ESRD on HD/hyperkalemia/hyponatremia - volume mgm't with HD and po lasix per renal. GEORGE on CPAP - stable
--- NOTE | 2016-07-20 11:53 | PN ---
Progress Note, Physician Chief Complaint: Ms Mcdonnell says she is feeling better today. No cp, sob, n/v. Had bowel movement with enema - Current Medication List Current Medications: Active Medications Acetaminophen (Tylenol -) 650 mg PO Q4H PRN PRN Reason: FEVER OR PAIN Last Admin: 07/19/16 18:27 Dose: 650 mg Apixaban (Eliquis -) 2.5 mg PO BID [facility] Last Admin: 07/20/16 09:48 Dose: 2.5 mg Atorvastatin Calcium (Lipitor -) 10 mg PO HS [facility] Last Admin: 07/19/16 21:32 Dose: 10 mg Cholecalciferol (Vitamin D3 -) 1,000 unit PO DAILY [facility] Last Admin: 07/20/16 09:48 Dose: 1,000 unit Docusate Sodium (Colace -) 100 mg PO BID [facility] Last Admin: 07/20/16 09:48 Dose: 100 mg Furosemide (Lasix -) 80 mg PO DAILY [facility] Last Admin: 07/20/16 09:48 Dose: 80 mg Insulin Aspart (Novolog Vial Sliding Scale -) 1 vial SQ ACHS [facility] PRN Reason: Protocol Last Admin: 07/20/16 10:55 Dose: 1 units Lactulose (Cephulac (Oral Use)) 20 gm PO TID [facility] Last Admin: 07/20/16 06:14 Dose: 20 gm Loratadine (Claritin -) 10 mg PO DAILY PRN PRN Reason: allergy Ondansetron HCl (Zofran Injection) 4 mg IVPB Q6H PRN PRN Reason: NAUSEA Oxycodone HCl (Roxicodone -) 10 mg PO Q4H PRN PRN Reason: PAIN Last Admin: 07/20/16 06:15 Dose: 10 mg Polyethylene Glycol (Miralax (For Daily Use) -) 17 gm PO BID [facility] Last Admin: 07/20/16 09:49 Dose: 17 gm - Objective Vital Signs: Vital Signs Temperature 97.5 F L 07/20/16 06:00 Pulse Rate 89 07/20/16 06:00 Respiratory Rate 20 07/20/16 06:00 Blood Pressure 100/43 07/20/16 06:00 O2 Sat by Pulse Oximetry (%) 96 07/19/16 21:00 Constitutional: Yes: No Distress, Calm, Obese Cardiovascular: Yes: Regular Rate and Rhythm. No: Gallop, Murmur, Rub Respiratory: Yes: Regular, CTA Bilaterally. No: Rales, Rhonchi, Wheezes Gastrointestinal: Yes: Normal Bowel Sounds, Distention. No: Soft, Tenderness Extremities: Yes: WNL Edema: Yes Edema: LLE: 2+, RLE: 2+ Labs: CBC, BMP 07/20/16 07:35 07/20/16 07:35 INR, PTT INR 1.18 (0.82-1.09) H 07/10/16 07:40 Problem List - Problems (1) Hip fracture Code(s): S72.009A - FRACTURE OF UNSP PART OF NECK OF UNSP FEMUR, INIT Qualifiers: Encounter type: initial encounter Fracture type: closed Laterality : right Qualified Code(s): S72.001A - Fracture of unspecified part of neck of right femur, initial encounter for closed fracture (2) (HFpEF) heart failure with preserved ejection fraction Code(s): I50.9 - HEART FAILURE, UNSPECIFIED (3) Bilateral leg edema Code(s): R60.0 - LOCALIZED EDEMA (4) Diabetes Code(s): E11.9 - TYPE 2 DIABETES MELLITUS WITHOUT COMPLICATIONS (5) HTN (hypertension) Code(s): I10 - ESSENTIAL (PRIMARY) HYPERTENSION (6) Hyperkalemia Code(s): E87.5 - HYPERKALEMIA (7) End stage renal failure on dialysis Code(s): N18.6 - END STAGE RENAL DISEASE Z99.2 - DEPENDENCE ON RENAL DIALYSIS (8) Obesity Code(s): E66.9 - OBESITY, UNSPECIFIED Qualifiers: Obesity severity: morbid (9) Anemia Code(s): D64.9 - ANEMIA, UNSPECIFIED (10) Hyponatremia Code(s): E87.1 - HYPO-OSMOLALITY AND HYPONATREMIA (11) UTI (urinary tract infection) Code(s): N39.0 - URINARY TRACT INFECTION, SITE NOT SPECIFIED Assessment/Plan (1) Hip fracture Assessment/Plan: -pain controlled -continue oxycodone -SNF placement Code(s): S72.009A - FRACTURE OF UNSP PART OF NECK OF UNSP FEMUR, INIT Qualifiers: Encounter type: initial encounter Fracture type: closed Laterality : right Qualified Code(s): S72.001A - Fracture of unspecified part of neck of right femur, initial encounter for closed fracture (2) (HFpEF) heart failure with preserved ejection fraction Assessment/Plan: -continue lasix -leg edema unchanged Code(s): I50.9 - HEART FAILURE, UNSPECIFIED (3) Bilateral leg edema Assessment/Plan: -stable Code(s): R60.0 - LOCALIZED EDEMA (4) Diabetes Assessment/Plan: -diabetic/renal diet Code(s): E11.9 - TYPE 2 DIABETES MELLITUS WITHOUT COMPLICATIONS (5) HTN (hypertension) Assessment/Plan: -well controlled -continue lasix Code(s): I10 - ESSENTIAL (PRIMARY) HYPERTENSION (6) Hyperkalemia Assessment/Plan: -resolved with HD Code(s): E87.5 - HYPERKALEMIA (7) End stage renal failure on dialysis Assessment/Plan: -continue HD per nephrology Code(s): N18.6 - END STAGE RENAL DISEASE Z99.2 - DEPENDENCE ON RENAL DIALYSIS (8) Obesity Code(s): E66.9 - OBESITY, UNSPECIFIED Qualifiers: Obesity severity: morbid (9) Hyponatremia -nephrology following -fluid restriction (10) Leukocytosis -remains elevated -ID following (11) Anemia -secondary to renal function -continue epo (12) Severe constipation -+bm -continue stool softeners
--- NOTE | 2016-07-20 12:54 | PN ---
Progress Note, Physician Chief Complaint: The patient is lying in bed. The pain is easing up a little. and daughter by her bed. Physical therapist was in earlier. - Current Medication List Current Medications: Active Medications Acetaminophen (Tylenol -) 650 mg PO Q4H PRN PRN Reason: FEVER OR PAIN Last Admin: 07/19/16 18:27 Dose: 650 mg Apixaban (Eliquis -) 2.5 mg PO BID [facility] Last Admin: 07/20/16 09:48 Dose: 2.5 mg Atorvastatin Calcium (Lipitor -) 10 mg PO HS [facility] Last Admin: 07/19/16 21:32 Dose: 10 mg Cholecalciferol (Vitamin D3 -) 1,000 unit PO DAILY [facility] Last Admin: 07/20/16 09:48 Dose: 1,000 unit Docusate Sodium (Colace -) 100 mg PO BID [facility] Last Admin: 07/20/16 09:48 Dose: 100 mg Furosemide (Lasix -) 80 mg PO DAILY [facility] Last Admin: 07/20/16 09:48 Dose: 80 mg Insulin Aspart (Novolog Vial Sliding Scale -) 1 vial SQ ACHS [facility] PRN Reason: Protocol Last Admin: 07/20/16 10:55 Dose: 1 units Lactulose (Cephulac (Oral Use)) 20 gm PO TID [facility] Last Admin: 07/20/16 06:14 Dose: 20 gm Loratadine (Claritin -) 10 mg PO DAILY PRN PRN Reason: allergy Ondansetron HCl (Zofran Injection) 4 mg IVPB Q6H PRN PRN Reason: NAUSEA Oxycodone HCl (Roxicodone -) 10 mg PO Q4H PRN PRN Reason: PAIN Last Admin: 07/20/16 06:15 Dose: 10 mg Polyethylene Glycol (Miralax (For Daily Use) -) 17 gm PO BID [facility] Last Admin: 07/20/16 09:49 Dose: 17 gm - Objective Vital Signs: Vital Signs Temperature 97.5 F L 07/20/16 06:00 Pulse Rate 89 07/20/16 06:00 Respiratory Rate 20 07/20/16 06:00 Blood Pressure 100/43 07/20/16 06:00 O2 Sat by Pulse Oximetry (%) 96 07/19/16 21:00 Constitutional: Yes: Well Nourished, Anxious Eyes: Yes: WNL HENT: Yes: Atraumatic Cardiovascular: Yes: Regular Rate and Rhythm Respiratory: Yes: Regular, CTA Bilaterally, Rhonchi Gastrointestinal: Yes: Normal Bowel Sounds, Soft Extremities: Yes: Other (s/p surgery right hip Immobilized right arm) Labs: CBC, BMP 07/20/16 07:35 07/20/16 07:35 INR, PTT INR 1.18 (0.82-1.09) H 07/10/16 07:40 Problem List - Problems (1) Hip fracture Code(s): S72.009A - FRACTURE OF UNSP PART OF NECK OF UNSP FEMUR, INIT Qualifiers: Encounter type: initial encounter Fracture type: closed Laterality : right Qualified Code(s): S72.001A - Fracture of unspecified part of neck of right femur, initial encounter for closed fracture (2) [id number] kidney injury Code(s): N17.9 - ACUTE KIDNEY FAILURE, UNSPECIFIED N18.9 - CHRONIC KIDNEY DISEASE, UNSPECIFIED (3) Afib Code(s): I48.91 - UNSPECIFIED ATRIAL FIBRILLATION (4) Anemia Code(s): D64.9 - ANEMIA, UNSPECIFIED (5) CKD (chronic kidney disease) Code(s): N18.9 - CHRONIC KIDNEY DISEASE, UNSPECIFIED (6) Coronary arteriosclerosis Code(s): I25.10 - ATHSCL HEART DISEASE OF [place] CORONARY ARTERY W/O ANG PCTRS (7) Diabetes Code(s): E11.9 - TYPE 2 DIABETES MELLITUS WITHOUT COMPLICATIONS (8) Edema Code(s): R60.9 - EDEMA, UNSPECIFIED (9) End stage renal failure on dialysis Code(s): N18.6 - END STAGE RENAL DISEASE Z99.2 - DEPENDENCE ON RENAL DIALYSIS (10) Obesity Code(s): E66.9 - OBESITY, UNSPECIFIED Qualifiers: Obesity severity: morbid Assessment/Plan Patient with ESRD, on HFD admitted with traumatic Fx of the right hip and right humerus. S/p ORIF right hip Had uneventful HD yesterday. Clinical status stable. PT initiated. The patient will require out patient rehab [facility], with in house HD services Radha Hearn MD
[2016-07-20] MEDS: ATORVASTATIN CA 10 MG TABLET (FP) PO SCH (22:30)
[2016-07-21] MEDS ORDERED: INSULIN (NOVOLOG) ASPART 100 UNITS/ML 10ML VIAL ONE ×2 (06:45→22:40)
[2016-07-21] MEDS: LACTULOSE 20 GM/30 ML UDC (FOR ORAL USE ONLY) PO SCH ×3 (06:50→22:33)
[2016-07-21] MEDS: INSULIN SLIDING SCALE (NOVOLOG) 1 VIAL SQ SCH ×4 (06:51→22:41)
[2016-07-21 07:48] LABS: MCH 33.4 pg (25.7-33.7); MCHC 32.1 g/dl (32.0-36.0); MEAN CELL VOLUME 104.1 fl (80-96); MEAN PLT VOLUME 8.7 fl (7.5-11.1); PLATELET COUNT 351 K/MM3 (134-434); RDW 14.7 % (11.6-15.6); WHITE BLOOD COUNT 20.8 K/mm3 (4.0-10.0)
[2016-07-21 08:18] LABS: CREATININE 3.5 mg/dL (0.55-1.02); MAGNESIUM 1.9 mg/dL (1.8-2.4); PHOSPHOROUS 3.5 mg/dL (2.5-4.9)
--- NOTE | 2016-07-21 08:59 | PN ---
Progress Note, Physician Chief Complaint: afib, sob History of Present Illness: admits to mild incr sob earlier this am--comfortable now; RN states he heard wheezing earlier; denies incr leg swelling, cp, palpit - Current Medication List Current Medications: Active Medications Acetaminophen (Tylenol -) 650 mg PO Q4H PRN PRN Reason: FEVER OR PAIN Last Admin: 07/19/16 18:27 Dose: 650 mg Apixaban (Eliquis -) 2.5 mg PO BID [facility] Last Admin: 07/20/16 22:29 Dose: 2.5 mg Atorvastatin Calcium (Lipitor -) 10 mg PO HS [facility] Last Admin: 07/20/16 22:30 Dose: 10 mg Cholecalciferol (Vitamin D3 -) 1,000 unit PO DAILY [facility] Last Admin: 07/20/16 09:48 Dose: 1,000 unit Docusate Sodium (Colace -) 100 mg PO BID [facility] Last Admin: 07/20/16 22:30 Dose: 100 mg Furosemide (Lasix -) 80 mg PO DAILY [facility] Last Admin: 07/20/16 09:48 Dose: 80 mg Insulin Aspart (Novolog Vial Sliding Scale -) 1 vial SQ ACHS [facility] PRN Reason: Protocol Last Admin: 07/21/16 06:51 Dose: 1 units Lactulose (Cephulac (Oral Use)) 20 gm PO TID [facility] Last Admin: 07/21/16 06:50 Dose: 20 gm Loratadine (Claritin -) 10 mg PO DAILY PRN PRN Reason: allergy Ondansetron HCl (Zofran Injection) 4 mg IVPB Q6H PRN PRN Reason: NAUSEA Oxycodone HCl (Roxicodone -) 10 mg PO Q4H PRN PRN Reason: PAIN Last Admin: 07/20/16 19:47 Dose: 10 mg Polyethylene Glycol (Miralax (For Daily Use) -) 17 gm PO BID [facility] Last Admin: 07/20/16 22:31 Dose: 17 gm - Objective Vital Signs: Vital Signs Temperature 99.2 F 07/21/16 06:00 Pulse Rate 107 H 07/21/16 06:00 Respiratory Rate 18 07/21/16 06:00 Blood Pressure 119/54 07/21/16 06:00 O2 Sat by Pulse Oximetry (%) 98 07/20/16 21:00 Constitutional: Yes: No Distress, Calm, Obese Cardiovascular: Yes: Pulse Irregular, S1, S2. No: JVD (tds habitus), Gallop, Murmur Respiratory: Yes: Regular, CTA Bilaterally (limi), Wheezes (limited due to pain on positioning). No: Accessory Muscle Use, Rales Extremities: No: Cold Edema: Yes (chr nonpitting (stable)) Neurological: Yes: Alert, Oriented Psychiatric: No: Agitated Labs: CBC, BMP 07/21/16 06:20 07/21/16 06:20 INR, PTT INR 1.18 (0.82-1.09) H 07/10/16 07:40 Assessment/Plan echo 08/2015: nl lv/rv. mild lae. valves wnl. no rvsp. A/p: 85 yo with CAD s/p AZUL to RCA '14, Afib on eliquis, dCHF, HTN, HL, IDDM, GEORGE declines CPAP and CKD on HD who presents s/p fall c/b hip fracture. CAD s/p AZUL to RCA in 03/2014 - on statin. not on ASA b/c of hi risk gib and on AC. - stable, no anginal symptoms, nl lvef Afib - off AV alexandr blockade due to prior bradycardia (AT/AFL with slow conduction). - rate here is overall controlled--no change meds. - pain mgm't per pmd/surgery - d/w'd pt, and dtr at bedside today--she was (again) confused about her meds and eliquis (rx'd months ago as outpt after in-depth discussion with pt and , b/c she proved incapable of complying with warfarin/INRs) had fallen off as outpt; - they express concerns over s.e./bleeding risk; i advised them that her CHADS VASC score = 7, with approx 9%/year risk of stroke; i advised them that in general population studied, the risk of serious life-threatening bleeding with eliquis is far lower than this % on an annual basis; - i d/w'd them at length her recent fall--she had been stable for 3 yrs without falls with regular walker use and no more stairs (sleeps on ground floor now), but this time didn't use walker when got up from her chair and suddenly lost her balance; they feel she can arrange to always have walker with her and hence avoid repeated falls; - i advised them ASA will have much less (if any) stroke prevention benefits, but we can use that instead if they decline NOAC, and told them if she starts it but decides to stop it at home they must inform me so i can change her to ASA ; also advised them if she is having issues with balance or falls despite walker use, to inform me so we can reconsider risk:benefit equation; they repeatedly expressed their understanding of all above and she verbalized she would like to try eliquis for now and will follow above instrxns chronic HFPEF, chronic venous insuff: - stable, no signif volume excess (chronic LE edema is stable) - incr sob today, with + wheezing on exam; pt anuric so diuresis not the answer here - 2/10 cxr fluid in fissure, prominent hilar markings - will check CXR--due for routine HD tomorrow, defer schedule to renal - volume mgm't with HD and po lasix per renal. HTN - BP controlled off anti-hypertensives. DM2: -per primary ESRD on HD/hyperkalemia/hyponatremia - volume mgm't with HD and po lasix per renal. GEORGE on CPAP - stable hyponatremia: - per renal
[2016-07-21] MEDS: POLYETHYLENE GLYCOL 3350 119 GM BTL PO SCH ×2 (10:05→22:41)
[2016-07-21] MEDS ORDERED: PT OWN MED DRAWER 7, Y5N ONE (10:07)
[2016-07-21] MEDS: DOCUSATE SODIUM 100 MG CAPSULE (FP) PO SCH ×2 (10:10→22:33)
[2016-07-21] MEDS: oxyCODONE HCL 5 MG TABLET PO PRN ×3 (10:10→22:33)
[2016-07-21] MEDS: FUROSEMIDE 40 MG TABLET (FP) PO SCH (10:11)
[2016-07-21] MEDS: APIXABAN 2.5 MG TABLET PO SCH ×2 (10:11→22:35)
[2016-07-21] MEDS: CHOLECALCIFEROL (VITAMIN D3) 1,000 UNIT TABLET (FP) PO SCH (10:11)
[2016-07-21] MEDS: ACETAMINOPHEN 325 MG TABLET (FP) PO PRN (10:27)
--- NOTE | 2016-07-21 10:37 | PN ---
Progress Note, Physician Chief Complaint: ID Febrile now above 101 Denies and complaints chills SOB couph abd pain Dialysis - Current Medication List Current Medications: Active Medications Acetaminophen (Tylenol -) 650 mg PO Q4H PRN PRN Reason: FEVER OR PAIN Last Admin: 07/21/16 10:27 Dose: 650 mg Apixaban (Eliquis -) 2.5 mg PO BID [facility] Last Admin: 07/21/16 10:11 Dose: 2.5 mg Atorvastatin Calcium (Lipitor -) 10 mg PO HS [facility] Last Admin: 07/20/16 22:30 Dose: 10 mg Cholecalciferol (Vitamin D3 -) 1,000 unit PO DAILY [facility] Last Admin: 07/21/16 10:11 Dose: 1,000 unit Docusate Sodium (Colace -) 100 mg PO BID [facility] Last Admin: 07/21/16 10:10 Dose: 100 mg Furosemide (Lasix -) 80 mg PO DAILY [facility] Last Admin: 07/21/16 10:11 Dose: 80 mg Insulin Aspart (Novolog Vial Sliding Scale -) 1 vial SQ ACHS [facility] PRN Reason: Protocol Last Admin: 07/21/16 06:51 Dose: 1 units Lactulose (Cephulac (Oral Use)) 20 gm PO TID [facility] Last Admin: 07/21/16 06:50 Dose: 20 gm Loratadine (Claritin -) 10 mg PO DAILY PRN PRN Reason: allergy Ondansetron HCl (Zofran Injection) 4 mg IVPB Q6H PRN PRN Reason: NAUSEA Oxycodone HCl (Roxicodone -) 10 mg PO Q4H PRN PRN Reason: PAIN Last Admin: 07/21/16 10:10 Dose: 10 mg Polyethylene Glycol (Miralax (For Daily Use) -) 17 gm PO BID [facility] Last Admin: 07/21/16 10:05 Dose: Not Given - Objective Vital Signs: Vital Signs Temperature 99.2 F 07/21/16 06:00 Pulse Rate 107 H 07/21/16 06:00 Respiratory Rate 18 07/21/16 06:00 Blood Pressure 119/54 07/21/16 06:00 O2 Sat by Pulse Oximetry (%) 98 07/20/16 21:00 Constitutional: Yes: No Distress, Obese Neck: Yes: WNL, Supple Cardiovascular: Yes: Pulse Irregular, S1, S2. No: Murmur Respiratory: Yes: WNL, Regular, CTA Bilaterally, Diminished Gastrointestinal: Yes: WNL, Normal Bowel Sounds, Soft. No: Tenderness Extremities: Yes: Other (Serosanguionous drainage from right hip sound superiorly looks red Also skin tear right arm with sanguinous drainage AFV) Labs: CBC, BMP 07/21/16 06:20 07/21/16 06:20 INR, PTT INR 1.18 (0.82-1.09) H 07/10/16 07:40 Assessment/Plan Chest xray with no discreet infiltrate 07/19 Microbiology 07/16/16 15:00 Hip - Right Gram Stain - Final 07/16/16 15:00 Hip - Right Wound Culture - Final Staphylococcus Haemolyticus 07/10/16 07:00 Urine - Urine Cooper Urine Culture - Final Escherichia Coli Laboratory Tests 07/21/16 06:20 WBC 20.8 H Hgb 8.6 L Hct 26.7 L Plt Count 351 Assessment Gamma nail surgery right hip now with fever and leukocytosis Does not seem respiratory Drainage from the right hip with redness drainage from skin tear right arm. Must consider possibility of right hip infection Plan Blood cultures and start antibiotics Vancomycin 1 dose and Zosyn empiric Mal [facility]OPEZ
[2016-07-21] MEDS ORDERED: VANCOMYCIN 1,500 MG in DEXTROSE 5%-WATER - 500 ML IVPB ONE (10:40)
--- NOTE | 2016-07-21 11:29 | PN ---
Progress Note, Physician Chief Complaint: Ms Mcdonnell says she is itchy but otherwise doing well. No cp, sob, n/v. Does not feel feverish. - Current Medication List Current Medications: Active Medications Acetaminophen (Tylenol -) 650 mg PO Q4H PRN PRN Reason: FEVER OR PAIN Last Admin: 07/21/16 10:27 Dose: 650 mg Apixaban (Eliquis -) 2.5 mg PO BID [facility] Last Admin: 07/21/16 10:11 Dose: 2.5 mg Atorvastatin Calcium (Lipitor -) 10 mg PO HS [facility] Last Admin: 07/20/16 22:30 Dose: 10 mg Cholecalciferol (Vitamin D3 -) 1,000 unit PO DAILY [facility] Last Admin: 07/21/16 10:11 Dose: 1,000 unit Docusate Sodium (Colace -) 100 mg PO BID [facility] Last Admin: 07/21/16 10:10 Dose: 100 mg Furosemide (Lasix -) 80 mg PO DAILY [facility] Last Admin: 07/21/16 10:11 Dose: 80 mg Vancomycin HCl 1,500 mg/ (Dextrose) 500 mls @ 250 mls/hr IVPB ONCE ONE Stop: 07/21/16 12:39 Piperacillin Sod/Tazobactam Sod (Zosyn 2.25gm Ivpb (Pre-Docked)) 50 mls @ 100 mls/hr IVPB BID [facility] PRN Reason: Protocol Insulin Aspart (Novolog Vial Sliding Scale -) 1 vial SQ ACHS [facility] PRN Reason: Protocol Last Admin: 07/21/16 06:51 Dose: 1 units Lactulose (Cephulac (Oral Use)) 20 gm PO TID [facility] Last Admin: 07/21/16 06:50 Dose: 20 gm Loratadine (Claritin -) 10 mg PO DAILY PRN PRN Reason: allergy Ondansetron HCl (Zofran Injection) 4 mg IVPB Q6H PRN PRN Reason: NAUSEA Oxycodone HCl (Roxicodone -) 10 mg PO Q4H PRN PRN Reason: PAIN Last Admin: 07/21/16 10:10 Dose: 10 mg Polyethylene Glycol (Miralax (For Daily Use) -) 17 gm PO BID [facility] Last Admin: 07/21/16 10:05 Dose: Not Given - Objective Vital Signs: Vital Signs Temperature 102.1 F H 07/21/16 10:00 Pulse Rate 96 H 07/21/16 10:00 Respiratory Rate 18 07/21/16 10:00 Blood Pressure 122/58 07/21/16 10:00 O2 Sat by Pulse Oximetry (%) 98 07/21/16 09:00 Constitutional: Yes: No Distress, Calm, Obese Cardiovascular: Yes: Regular Rate and Rhythm. No: Gallop, Murmur, Rub Respiratory: Yes: Regular, CTA Bilaterally. No: Rales, Rhonchi, Wheezes Gastrointestinal: Yes: Normal Bowel Sounds, Distention. No: Tenderness Extremities: Yes: WNL Edema: Yes Edema: LLE: 1+, RLE: 1+ Labs: CBC, BMP 07/21/16 06:20 07/21/16 06:20 INR, PTT INR 1.18 (0.82-1.09) H 07/10/16 07:40 Problem List - Problems (1) Hip fracture Code(s): S72.009A - FRACTURE OF UNSP PART OF NECK OF UNSP FEMUR, INIT Qualifiers: Encounter type: initial encounter Fracture type: closed Laterality : right Qualified Code(s): S72.001A - Fracture of unspecified part of neck of right femur, initial encounter for closed fracture (2) (HFpEF) heart failure with preserved ejection fraction Code(s): I50.9 - HEART FAILURE, UNSPECIFIED (3) Bilateral leg edema Code(s): R60.0 - LOCALIZED EDEMA (4) Diabetes Code(s): E11.9 - TYPE 2 DIABETES MELLITUS WITHOUT COMPLICATIONS (5) HTN (hypertension) Code(s): I10 - ESSENTIAL (PRIMARY) HYPERTENSION (6) Hyperkalemia Code(s): E87.5 - HYPERKALEMIA (7) End stage renal failure on dialysis Code(s): N18.6 - END STAGE RENAL DISEASE Z99.2 - DEPENDENCE ON RENAL DIALYSIS (8) Obesity Code(s): E66.9 - OBESITY, UNSPECIFIED Qualifiers: Obesity severity: morbid (9) Anemia Code(s): D64.9 - ANEMIA, UNSPECIFIED (10) Hyponatremia Code(s): E87.1 - HYPO-OSMOLALITY AND HYPONATREMIA (11) UTI (urinary tract infection) Code(s): N39.0 - URINARY TRACT INFECTION, SITE NOT SPECIFIED Assessment/Plan (1) Hip fracture Assessment/Plan: -pain controlled -continue oxycodone -SNF placement Code(s): S72.009A - FRACTURE OF UNSP PART OF NECK OF UNSP FEMUR, INIT Qualifiers: Encounter type: initial encounter Fracture type: closed Laterality : right Qualified Code(s): S72.001A - Fracture of unspecified part of neck of right femur, initial encounter for closed fracture (2) (HFpEF) heart failure with preserved ejection fraction Assessment/Plan: -continue lasix -leg edema unchanged Code(s): I50.9 - HEART FAILURE, UNSPECIFIED (3) Bilateral leg edema Assessment/Plan: -stable Code(s): R60.0 - LOCALIZED EDEMA (4) Diabetes Assessment/Plan: -diabetic/renal diet Code(s): E11.9 - TYPE 2 DIABETES MELLITUS WITHOUT COMPLICATIONS (5) HTN (hypertension) Assessment/Plan: -well controlled -continue lasix Code(s): I10 - ESSENTIAL (PRIMARY) HYPERTENSION (6) Hyperkalemia Assessment/Plan: -resolved with HD Code(s): E87.5 - HYPERKALEMIA (7) End stage renal failure on dialysis Assessment/Plan: -continue HD per nephrology Code(s): N18.6 - END STAGE RENAL DISEASE Z99.2 - DEPENDENCE ON RENAL DIALYSIS (8) Obesity Code(s): E66.9 - OBESITY, UNSPECIFIED Qualifiers: Obesity severity: morbid (9) Hyponatremia -nephrology following -fluid restriction (10) Sepsis -case d/w ID -concern for possible wound infection -lungs are clear, lower suspicion for pneumonia -given vancomycin -cultures ordered (11) Anemia -secondary to renal function -continue epo (12) Severe constipation -+bm -continue stool softeners
[2016-07-21 11:36] LABS: HYPOCHROMIA 1+; PLATELET ESTIMATE ADEQUATE (NORMAL)
[2016-07-21 11:37] LABS: ANISOCYTOSIS 1+
--- NOTE | 2016-07-21 15:30 | PN ---
Progress Note, Physician History of Present Illness: The patient seen in bed, resting comfortably Family by the bed.Has low grade fever. Receiving IV Vancomycin No cough, No shortness of breat Received PT earlier. - Current Medication List Current Medications: Active Medications Acetaminophen (Tylenol -) 650 mg PO Q4H PRN PRN Reason: FEVER OR PAIN Last Admin: 07/21/16 10:27 Dose: 650 mg Apixaban (Eliquis -) 2.5 mg PO BID [facility] Last Admin: 07/21/16 10:11 Dose: 2.5 mg Atorvastatin Calcium (Lipitor -) 10 mg PO HS [facility] Last Admin: 07/20/16 22:30 Dose: 10 mg Cholecalciferol (Vitamin D3 -) 1,000 unit PO DAILY [facility] Last Admin: 07/21/16 10:11 Dose: 1,000 unit Docusate Sodium (Colace -) 100 mg PO BID [facility] Last Admin: 07/21/16 10:10 Dose: 100 mg Furosemide (Lasix -) 80 mg PO DAILY [facility] Last Admin: 07/21/16 10:11 Dose: 80 mg Piperacillin Sod/Tazobactam Sod (Zosyn 2.25gm Ivpb (Pre-Docked)) 50 mls @ 100 mls/hr IVPB BID [facility] PRN Reason: Protocol Insulin Aspart (Novolog Vial Sliding Scale -) 1 vial SQ ACHS [facility] PRN Reason: Protocol Last Admin: 07/21/16 11:30 Dose: 1 units Lactulose (Cephulac (Oral Use)) 20 gm PO TID [facility] Last Admin: 07/21/16 13:52 Dose: Not Given Loratadine (Claritin -) 10 mg PO DAILY PRN PRN Reason: allergy Ondansetron HCl (Zofran Injection) 4 mg IVPB Q6H PRN PRN Reason: NAUSEA Oxycodone HCl (Roxicodone -) 10 mg PO Q4H PRN PRN Reason: PAIN Last Admin: 07/21/16 10:10 Dose: 10 mg Polyethylene Glycol (Miralax (For Daily Use) -) 17 gm PO BID [facility] Last Admin: 07/21/16 10:05 Dose: Not Given - Objective Vital Signs: Vital Signs Temperature 100.3 F H 07/21/16 13:54 Pulse Rate 90 07/21/16 13:54 Respiratory Rate 22 07/21/16 13:54 Blood Pressure 122/58 07/21/16 10:00 O2 Sat by Pulse Oximetry (%) 98 07/21/16 09:00 Constitutional: Yes: Well Nourished, Calm Neck: Yes: Supple, Trachea Midline Cardiovascular: Yes: S1, S2 Respiratory: Yes: CTA Bilaterally, Diminished Gastrointestinal: Yes: Normal Bowel Sounds, Abdomen, Obese Labs: CBC, BMP 07/21/16 06:20 07/21/16 06:20 INR, PTT INR 1.18 (0.82-1.09) H 07/10/16 07:40 Problem List - Problems (1) Hip fracture Code(s): S72.009A - FRACTURE OF UNSP PART OF NECK OF UNSP FEMUR, INIT Qualifiers: Encounter type: initial encounter Fracture type: closed Laterality : right Qualified Code(s): S72.001A - Fracture of unspecified part of neck of right femur, initial encounter for closed fracture (2) [id number] kidney injury Code(s): N17.9 - ACUTE KIDNEY FAILURE, UNSPECIFIED N18.9 - CHRONIC KIDNEY DISEASE, UNSPECIFIED (3) Afib Code(s): I48.91 - UNSPECIFIED ATRIAL FIBRILLATION (4) Anemia Code(s): D64.9 - ANEMIA, UNSPECIFIED (5) CKD (chronic kidney disease) Code(s): N18.9 - CHRONIC KIDNEY DISEASE, UNSPECIFIED (6) Coronary arteriosclerosis Code(s): I25.10 - ATHSCL HEART DISEASE OF [place] CORONARY ARTERY W/O ANG PCTRS (7) Diabetes Code(s): E11.9 - TYPE 2 DIABETES MELLITUS WITHOUT COMPLICATIONS (8) Edema Code(s): R60.9 - EDEMA, UNSPECIFIED (9) End stage renal failure on dialysis Code(s): N18.6 - END STAGE RENAL DISEASE Z99.2 - DEPENDENCE ON RENAL DIALYSIS (10) Obesity Code(s): E66.9 - OBESITY, UNSPECIFIED Qualifiers: Obesity severity: morbid Assessment/Plan Patient with ESRD, on HFD admitted with traumatic Fx of the right hip and right humerus. S/p ORIF right hip New problem of fever. W/u in progress. Received IV Abx ( Zosyn and Vanco) Started PT. The patient will require out patient rehab [facility], with in house HD services Next HD tomorrow. Radha Hearn MD
[2016-07-21] MEDS: ATORVASTATIN CA 10 MG TABLET (FP) PO SCH (22:34)
[2016-07-21] MEDS: PIPERACILLIN/TAZOB 2.25 GM 50 ML IVPB SCH ×2 (22:35→23:18)
[2016-07-22] MEDS: LACTULOSE 20 GM/30 ML UDC (FOR ORAL USE ONLY) PO SCH ×3 (06:01→22:14)
[2016-07-22] MEDS ORDERED: INSULIN (NOVOLOG) ASPART 100 UNITS/ML 10ML VIAL ONE ×3 (06:02→22:16)
[2016-07-22] MEDS: INSULIN SLIDING SCALE (NOVOLOG) 1 VIAL SQ SCH ×4 (06:03→22:16)
[2016-07-22] MEDS: oxyCODONE HCL 5 MG TABLET PO PRN ×4 (06:04→22:14)
[2016-07-22 08:06] LABS: BASOPHIL 0.1 % (0-2.0); EOSINOPHIL 2.2 % (0-4.5); MCH 33.6 pg (25.7-33.7); MCHC 32.2 g/dl (32.0-36.0); MEAN CELL VOLUME 104.5 fl (80-96); MEAN PLT VOLUME 8.5 fl (7.5-11.1); NEUTROPHILS 86.5 % (42.8-82.8); PLATELET COUNT 329 K/MM3 (134-434); WHITE BLOOD COUNT 14.8 K/mm3 (4.0-10.0)
[2016-07-22 08:47] LABS: ALBUMIN 1.8 g/dl (3.4-5.0); ANION GAP 15 (8-16); CALCIUM 8.3 mg/dL (8.5-10.1); CO2 25 mmol/L (21-32); GLUCOSE,RANDOM 142 mg/dL (74-106); MAGNESIUM 1.9 mg/dL (1.8-2.4)
[2016-07-22 08:51] LABS: ALK PHOS 168 U/L (45-117); BILIRUBIN,TOTAL 0.9 mg/dL (0.2-1.0); CREATININE 4.4 mg/dL (0.55-1.02); PHOSPHOROUS 3.8 mg/dL (2.5-4.9); SGOT/AST 14 U/L (15-37); SGPT/ALT < 6 U/L (12-78); TOT PROT 5.1 g/dl (6.4-8.2)
[2016-07-22] MEDS: PIPERACILLIN/TAZOB 2.25 GM 50 ML IVPB SCH (09:42)
[2016-07-22] MEDS ORDERED: GENTAMICIN INJECTION 100 MG in SODIUM CHLORIDE 97.5 ML IVPB ONE (10:57)
[2016-07-22] MEDS ORDERED: CEFTAZIDIME PENTAHYDRATE 2 GM in DEXTROSE 5%-WATER - 100 ML IVPB ONE (11:00)
[2016-07-22] MEDS ORDERED: GENTAMICIN INJECTION 120 MG in SODIUM CHLORIDE 100 ML IVPB ONE (11:15)
--- NOTE | 2016-07-22 11:36 | PN ---
Progress Note (short form) - Note Progress Note: Renal Follow up for ESRD on HD Pt seen and examined with dialysis BP stable, goal uf is 2L currently getting IV Gent and Ceftazidine + Fever yesterday Vital Signs Temperature 97.4 F L 07/22/16 06:48 Pulse Rate 102 H 07/22/16 06:48 Respiratory Rate 18 07/22/16 06:48 Blood Pressure 141/62 07/22/16 06:48 O2 Sat by Pulse Oximetry (%) 96 07/21/16 21:00 Intake & Output 07/19/16 07/20/16 07/21/16 07/22/16 23:59 23:59 23:59 23:59 Intake Total 350 800 970 100 Output Total 0 0 Balance 350 800 970 100 Weight 211 lb 209 lb 9 oz 207 lb 3 oz Gen: NAD, awake and alert CVS: irregular, no M/R Lungs: Dec BS Lung bases, no rales Abd: soft NT/ND Ext: Trace to 1+ edema in LE Access: Left ARM AVF CBC, BMP 07/22/16 06:38 07/22/16 06:38 Current Medications Acetaminophen (Tylenol -) 650 mg PO Q4H PRN PRN Reason: FEVER OR PAIN Last Admin: 07/21/16 10:27 Dose: 650 mg Apixaban (Eliquis -) 2.5 mg PO BID [facility] Last Admin: 07/21/16 22:35 Dose: 2.5 mg Atorvastatin Calcium (Lipitor -) 10 mg PO HS [facility] Last Admin: 07/21/16 22:34 Dose: 10 mg Cholecalciferol (Vitamin D3 -) 1,000 unit PO DAILY [facility] Last Admin: 07/21/16 10:11 Dose: 1,000 unit Docusate Sodium (Colace -) 100 mg PO BID [facility] Last Admin: 07/21/16 22:33 Dose: Not Given Furosemide (Lasix -) 80 mg PO DAILY [facility] Last Admin: 07/21/16 10:11 Dose: 80 mg Gentamicin Sulfate 120 mg/ (Sodium Chloride) 103 mls @ 103 mls/hr IVPB ONCE ONE Stop: 07/22/16 12:14 Insulin Aspart (Novolog Vial Sliding Scale -) 1 vial SQ ACHS [facility] PRN Reason: Protocol Last Admin: 07/22/16 06:03 Dose: 1 units Lactulose (Cephulac (Oral Use)) 20 gm PO TID [facility] Last Admin: 07/22/16 06:01 Dose: Not Given Loratadine (Claritin -) 10 mg PO DAILY PRN PRN Reason: allergy Ondansetron HCl (Zofran Injection) 4 mg IVPB Q6H PRN PRN Reason: NAUSEA Oxycodone HCl (Roxicodone -) 10 mg PO Q4H PRN PRN Reason: PAIN Last Admin: 07/22/16 09:41 Dose: 10 mg Polyethylene Glycol (Miralax (For Daily Use) -) 17 gm PO BID [facility] Last Admin: 07/21/16 22:41 Dose: Not Given A/P 85 year old woman with PMhx of ESRD on HD (MWF), Afib on A/C, HTN, CAD s/p stents, CHF, DM who presented s/p fall with multiple fractures. #ESRD on HD currently getting dialysis UF goal is 2L tolerating HD well Dose all meds for intermittent HD #Fever/Gram Negative Bacteria ? urinary source -> intially grew E.Coli in urine but did get Abx on presentation Continue Gent and Ceftaz as per ID f/u urine and repeat blood cultures #Hyponatremia From excess fluid intake 1L fluid restriction daily will improve with UF with dialysis #Intertrochanteric hip fx/Humerus Fracture s/p Gamma Nail Arm in immobilizer Pain control #CKD Related Anemia trend CBC Goal Hgb > 10 ARI with dialysis Massimo Melissa DO
--- NOTE | 2016-07-22 11:38 | PN ---
Progress Note (short form) - Note Progress Note: Pt is getting dialysis. She is s/p R gamma nail, and with a right humerus fracture. Overall I understand she is doing fine. Rec P.T. for ambulation, PWB RLE. Austen planning. F/u in office as an out pt in 1 week
--- NOTE | 2016-07-22 12:13 | PN ---
Progress Note, Physician Chief Complaint: Ms Mcdonnell says she feels fine. No cp, sob, n/v. - Current Medication List Current Medications: Active Medications Acetaminophen (Tylenol -) 650 mg PO Q4H PRN PRN Reason: FEVER OR PAIN Last Admin: 07/21/16 10:27 Dose: 650 mg Apixaban (Eliquis -) 2.5 mg PO BID [facility] Last Admin: 07/21/16 22:35 Dose: 2.5 mg Atorvastatin Calcium (Lipitor -) 10 mg PO HS [facility] Last Admin: 07/21/16 22:34 Dose: 10 mg Cholecalciferol (Vitamin D3 -) 1,000 unit PO DAILY [facility] Last Admin: 07/21/16 10:11 Dose: 1,000 unit Docusate Sodium (Colace -) 100 mg PO BID [facility] Last Admin: 07/21/16 22:33 Dose: Not Given Furosemide (Lasix -) 80 mg PO DAILY [facility] Last Admin: 07/21/16 10:11 Dose: 80 mg Gentamicin Sulfate 120 mg/ (Sodium Chloride) 103 mls @ 103 mls/hr IVPB ONCE ONE Stop: 07/22/16 12:14 Last Admin: 07/22/16 12:11 Dose: 103 mls/hr Insulin Aspart (Novolog Vial Sliding Scale -) 1 vial SQ ACHS [facility] PRN Reason: Protocol Last Admin: 07/22/16 06:03 Dose: 1 units Lactulose (Cephulac (Oral Use)) 20 gm PO TID [facility] Last Admin: 07/22/16 06:01 Dose: Not Given Loratadine (Claritin -) 10 mg PO DAILY PRN PRN Reason: allergy Ondansetron HCl (Zofran Injection) 4 mg IVPB Q6H PRN PRN Reason: NAUSEA Oxycodone HCl (Roxicodone -) 10 mg PO Q4H PRN PRN Reason: PAIN Last Admin: 07/22/16 09:41 Dose: 10 mg Polyethylene Glycol (Miralax (For Daily Use) -) 17 gm PO BID [facility] Last Admin: 07/21/16 22:41 Dose: Not Given - Objective Vital Signs: Vital Signs Temperature 97.4 F L 07/22/16 06:48 Pulse Rate 102 H 07/22/16 06:48 Respiratory Rate 18 07/22/16 06:48 Blood Pressure 141/62 07/22/16 06:48 O2 Sat by Pulse Oximetry (%) 96 07/21/16 21:00 Constitutional: Yes: No Distress, Calm, Obese Cardiovascular: Yes: Regular Rate and Rhythm. No: Gallop, Murmur, Rub Respiratory: Yes: Regular, CTA Bilaterally. No: Rales, Rhonchi, Wheezes Gastrointestinal: Yes: Normal Bowel Sounds, Distention. No: Soft, Tenderness Extremities: Yes: WNL Edema: Yes Edema: LLE: 2+, RLE: 2+ Labs: CBC, BMP 07/22/16 06:38 07/22/16 06:38 INR, PTT INR 1.18 (0.82-1.09) H 07/10/16 07:40 Problem List - Problems (1) Hip fracture Code(s): S72.009A - FRACTURE OF UNSP PART OF NECK OF UNSP FEMUR, INIT Qualifiers: Encounter type: initial encounter Fracture type: closed Laterality : right Qualified Code(s): S72.001A - Fracture of unspecified part of neck of right femur, initial encounter for closed fracture (2) (HFpEF) heart failure with preserved ejection fraction Code(s): I50.9 - HEART FAILURE, UNSPECIFIED (3) Bilateral leg edema Code(s): R60.0 - LOCALIZED EDEMA (4) Diabetes Code(s): E11.9 - TYPE 2 DIABETES MELLITUS WITHOUT COMPLICATIONS (5) HTN (hypertension) Code(s): I10 - ESSENTIAL (PRIMARY) HYPERTENSION (6) Hyperkalemia Code(s): E87.5 - HYPERKALEMIA (7) End stage renal failure on dialysis Code(s): N18.6 - END STAGE RENAL DISEASE Z99.2 - DEPENDENCE ON RENAL DIALYSIS (8) Obesity Code(s): E66.9 - OBESITY, UNSPECIFIED Qualifiers: Obesity severity: morbid (9) Anemia Code(s): D64.9 - ANEMIA, UNSPECIFIED (10) Hyponatremia Code(s): E87.1 - HYPO-OSMOLALITY AND HYPONATREMIA (11) UTI (urinary tract infection) Code(s): N39.0 - URINARY TRACT INFECTION, SITE NOT SPECIFIED Assessment/Plan (1) Hip fracture Assessment/Plan: -pain controlled -continue oxycodone -SNF placement Code(s): S72.009A - FRACTURE OF UNSP PART OF NECK OF UNSP FEMUR, INIT Qualifiers: Encounter type: initial encounter Fracture type: closed Laterality : right Qualified Code(s): S72.001A - Fracture of unspecified part of neck of right femur, initial encounter for closed fracture (2) (HFpEF) heart failure with preserved ejection fraction Assessment/Plan: -continue lasix -leg edema unchanged Code(s): I50.9 - HEART FAILURE, UNSPECIFIED (3) Bilateral leg edema Assessment/Plan: -stable Code(s): R60.0 - LOCALIZED EDEMA (4) Diabetes Assessment/Plan: -diabetic/renal diet Code(s): E11.9 - TYPE 2 DIABETES MELLITUS WITHOUT COMPLICATIONS (5) HTN (hypertension) Assessment/Plan: -well controlled -continue lasix Code(s): I10 - ESSENTIAL (PRIMARY) HYPERTENSION (6) Hyperkalemia Assessment/Plan: -resolved with HD Code(s): E87.5 - HYPERKALEMIA (7) End stage renal failure on dialysis Assessment/Plan: -continue HD per nephrology Code(s): N18.6 - END STAGE RENAL DISEASE Z99.2 - DEPENDENCE ON RENAL DIALYSIS (8) Obesity Code(s): E66.9 - OBESITY, UNSPECIFIED Qualifiers: Obesity severity: morbid (9) Hyponatremia -nephrology following -fluid restriction (10) Sepsis -ID following -gentamicin and fortaz to be given with HD (11) Anemia -secondary to renal function -continue epo (12) Severe constipation -continue stool softeners
--- NOTE | 2016-07-22 12:41 | PN ---
Progress Note (short form) - Note Progress Note: s/p HD today very poor iv access received vancomycin yesterday blood cultures GNR gent and fortaz given in HD no chills or rigors febrile to 102 yesterday alert eating lunch Vital Signs Period Temp Pulse Resp BP Sys/Adams Pulse Ox Last 24 Hr 97.4 F-100.3 F 72-102 18-22 96-141/52-62 96 cor-rrr lungs decreased bs at bases right arm is weeping serous fluid right hip incision- no erythema abd soft, ?suprapubic fullness CBC, BMP 07/22/16 06:38 07/22/16 06:38 Microbiology 07/17/16 12:15 Blood - Peripheral Venous Blood Culture - Preliminary NO GROWTH OBTAINED AFTER 96 HOURS, INCUBATION TO CONTINUE FOR 1 DAYS. 07/17/16 12:15 Blood - Peripheral Venous Blood Culture - Preliminary NO GROWTH OBTAINED AFTER 96 HOURS, INCUBATION TO CONTINUE FOR 1 DAYS. 07/21/16 12:20 Blood - Peripheral Venous Blood Culture - Preliminary Gram Negative Thomas 07/21/16 12:30 Blood - Peripheral Venous Blood Culture - Preliminary Pending Organism a/p gram negative bacteremia- ?source hip incision no signs of purulence would check bladder scan straight cath urine for UA and culture f/u blood cultures fortaz and gent given with HD s/p fall with hip and humerus fracture s/p gamma nail 07/10 esrd/hd diabetes obesity
[2016-07-22] MEDS: POLYETHYLENE GLYCOL 3350 119 GM BTL PO SCH ×2 (12:43→22:15)
[2016-07-22] MEDS ORDERED: PT OWN MED DRAWER 7, Y5N ONE (12:51)
[2016-07-22] MEDS: FUROSEMIDE 40 MG TABLET (FP) PO SCH (12:53)
[2016-07-22] MEDS: DOCUSATE SODIUM 100 MG CAPSULE (FP) PO SCH ×2 (12:53→22:14)
[2016-07-22] MEDS: CHOLECALCIFEROL (VITAMIN D3) 1,000 UNIT TABLET (FP) PO SCH (12:53)
[2016-07-22] MEDS: APIXABAN 2.5 MG TABLET PO SCH ×2 (12:53→22:14)
--- NOTE | 2016-07-22 14:59 | PN ---
Progress Note (short form) - Note Progress Note: Chief Complaint: afib, sob History of Present Illness: denies incr leg swelling, cp, palpit, sob. Feels better today, more energy. Sys bp in the 80's at HD today. Patient states it is typical for sys bp to be 90's-100's at HD. Remains asymptomatic. Current Medications Acetaminophen (Tylenol -) 650 mg PO Q4H PRN PRN Reason: FEVER OR PAIN Last Admin: 07/21/16 10:27 Dose: 650 mg Apixaban (Eliquis -) 2.5 mg PO BID [facility] Last Admin: 07/22/16 12:53 Dose: 2.5 mg Atorvastatin Calcium (Lipitor -) 10 mg PO HS [facility] Last Admin: 07/21/16 22:34 Dose: 10 mg Cholecalciferol (Vitamin D3 -) 1,000 unit PO DAILY [facility] Last Admin: 07/22/16 12:53 Dose: 1,000 unit Docusate Sodium (Colace -) 100 mg PO BID [facility] Last Admin: 07/22/16 12:53 Dose: 100 mg Furosemide (Lasix -) 80 mg PO DAILY [facility] Last Admin: 07/22/16 12:53 Dose: 80 mg Insulin Aspart (Novolog Vial Sliding Scale -) 1 vial SQ ACHS [facility] PRN Reason: Protocol Last Admin: 07/22/16 12:43 Dose: Not Given Lactulose (Cephulac (Oral Use)) 20 gm PO TID [facility] Last Admin: 07/22/16 13:29 Dose: Not Given Loratadine (Claritin -) 10 mg PO DAILY PRN PRN Reason: allergy Ondansetron HCl (Zofran Injection) 4 mg IVPB Q6H PRN PRN Reason: NAUSEA Oxycodone HCl (Roxicodone -) 10 mg PO Q4H PRN PRN Reason: PAIN Last Admin: 07/22/16 09:41 Dose: 10 mg Polyethylene Glycol (Miralax (For Daily Use) -) 17 gm PO BID [facility] Last Admin: 07/22/16 12:43 Dose: Not Given Vital Signs - 24 hr 07/21/16 07/21/16 07/21/16 19:01 21:00 23:00 Temperature 99.0 F Pulse Rate 78 72 Respiratory 18 20 Rate Blood Pressure 96/52 102/56 O2 Sat by Pulse 96 Oximetry (%) 07/22/16 07/22/16 07/22/16 01:54 06:48 08:05 Temperature 97.6 F 97.4 F L 98.4 F Pulse Rate 102 H 60 Respiratory 18 18 Rate Blood Pressure 141/62 98/43 O2 Sat by Pulse Oximetry (%) 07/22/16 07/22/16 07/22/16 08:10 08:40 09:10 Temperature Pulse Rate 58 L 90 97 H Respiratory 18 18 18 Rate Blood Pressure 83/40 92/45 104/44 O2 Sat by Pulse Oximetry (%) 07/22/16 07/22/16 07/22/16 09:40 10:10 10:40 Temperature Pulse Rate 59 L 92 H 100 H Respiratory 18 18 18 Rate Blood Pressure 120/35 101/69 85/35 O2 Sat by Pulse Oximetry (%) 07/22/16 07/22/16 07/22/16 11:10 11:40 12:10 Temperature Pulse Rate 60 62 64 Respiratory 18 18 18 Rate Blood Pressure 87/30 90/40 85/38 O2 Sat by Pulse Oximetry (%) 07/22/16 14:27 Temperature 98.1 F Pulse Rate 82 Respiratory 20 Rate Blood Pressure O2 Sat by Pulse Oximetry (%) Constitutional: Yes: No Distress, Calm, Obese Cardiovascular: Yes: Pulse Irregular, S1, S2. No: JVD (tds habitus), Gallop, Murmur Respiratory: Yes: Regular, CTA Bilaterally (limi), Wheezes (limited due to pain on positioning). No: Accessory Muscle Use, Rales Extremities: No: Cold Edema: Yes (chr nonpitting (stable) to abdomen) Neurological: Yes: Alert, Oriented Psychiatric: No: Agitated Labs: CBC, BMP 07/22/16 06:38 07/22/16 06:38 Laboratory Tests 07/22/16 06:38 Magnesium 1.9 Total Bilirubin 0.9 D AST 14 L D ALT < 6 L Alkaline Phosphatase 168 H D Albumin 1.8 L Assessment/Plan echo 08/2015: nl lv/rv. mild lae. valves wnl. no rvsp. A/p: 85 yo with CAD s/p AZUL to RCA '14, Afib on eliquis, dCHF, HTN, HL, IDDM, GEORGE declines CPAP and CKD on HD who presents s/p fall c/b hip fracture. CAD s/p AZUL to RCA in 03/2014 - on statin. not on ASA b/c of hi risk gib and on AC. - stable, no anginal symptoms, nl lvef Afib - off AV alexandr blockade due to prior bradycardia (AT/AFL with slow conduction). - rate here is overall controlled--no change meds. - pain mgm't per pmd/surgery - Dr. Juan d/w'd pt, and dtr at bedside --she was (again) confused about her meds and eliquis (rx'd months ago as outpt after in-depth discussion with pt and , b/c she proved incapable of complying with warfarin/INRs) had fallen off as outpt; - they express concerns over s.e./bleeding risk; Dr. Juan advised them that her CHADS VASC score = 7, with approx 9%/year risk of stroke; in general population studied, the risk of serious life-threatening bleeding with eliquis is far lower than this % on an annual basis; - Dr. juan d/w'd them at length her recent fall--she had been stable for 3 yrs without falls with regular walker use and no more stairs (sleeps on ground floor now), but this time didn't use walker when got up from her chair and suddenly lost her balance; they feel she can arrange to always have walker with her and hence avoid repeated falls; - Dr. Juan advised them ASA will have much less (if any) stroke prevention benefits, but we can use that instead if they decline NOAC, and told them if she starts it but decides to stop it at home they must inform Dr. juan so he can change her to ASA; also advised them if she is having issues with balance or falls despite walker use, to inform Dr. Juan so we can reconsider risk: benefit equation; they repeatedly expressed their understanding of all above and she verbalized she would like to try eliquis for now and will follow above instrxns chronic HFPEF, chronic venous insuff: - stable, no signif volume excess (chronic LE edema is stable) - incr sob today, with + wheezing on exam; pt anuric so diuresis not the answer here - 07/19 cxr fluid in fissure, prominent hilar markings - volume mgm't with HD and po lasix per renal. HTN - Currently running low in setting of HD, bacteremia, UTI. Off anti- hypertensives. Further mgm't of infection per ID, pmd and renal. Per nursing repeat bp after HD came up from 80's systolic to 100's systolic. Patent remains asymptomatic. ESRD on HD/hyperkalemia/hyponatremia - volume mgm't with HD and po lasix per renal. GEORGE on CPAP - stable hyponatremia: - per renal
[2016-07-22 16:53] LABS: URINE APPEARANCE TURBID; URINE BILIRUBIN NEGATIVE (NEGATIVE); URINE COLOR AMBER; URINE GLUCOSE (UA) 1+ (NEGATIVE); URINE KETONE NEGATIVE (NEGATIVE); URINE NITRITE NEGATIVE (NEGATIVE); URINE UROBILINOGEN NEGATIVE E.U./dl (0.2-1.0)
[2016-07-22 17:11] LABS: URINE BLOOD 2+ (NEGATIVE); URINE LEUK ESTERASE 2+ (NEGATIVE); URINE PROTEIN 1+ (NEGATIVE)
[2016-07-22] MEDS: ATORVASTATIN CA 10 MG TABLET (FP) PO SCH (22:14)
[2016-07-23] MEDS: INSULIN SLIDING SCALE (NOVOLOG) 1 VIAL SQ SCH ×4 (06:42→22:19)
[2016-07-23] MEDS: LACTULOSE 20 GM/30 ML UDC (FOR ORAL USE ONLY) PO SCH ×3 (06:42→22:17)
[2016-07-23] MEDS ORDERED: INSULIN (NOVOLOG) ASPART 100 UNITS/ML 10ML VIAL ONE ×3 (06:45→22:18)
[2016-07-23 07:53] LABS: BASOPHIL 0.4 % (0-2.0); EOSINOPHIL 1.4 % (0-4.5); MCH 33.7 pg (25.7-33.7); MEAN CELL VOLUME 105.2 fl (80-96); MEAN PLT VOLUME 8.5 fl (7.5-11.1); NEUTROPHILS 85.7 % (42.8-82.8); PLATELET COUNT 338 K/MM3 (134-434); RDW 14.8 % (11.6-15.6); WHITE BLOOD COUNT 14.9 K/mm3 (4.0-10.0)
[2016-07-23 08:22] LABS: CALCIUM 8.2 mg/dL (8.5-10.1); CREATININE 2.8 mg/dL (0.55-1.02); PHOSPHOROUS 2.7 mg/dL (2.5-4.9)
--- NOTE | 2016-07-23 08:34 | PN ---
Progress Note (short form) - Note Progress Note: Ortho Pt seen and examined s/p right IM gamma nail, right distal humerus fx Selected Entries 07/23/16 08:00 Temperature 97.2 F L Pulse Rate 93 H Respiratory 20 Rate Blood Pressure 109/55 Laboratory Tests 07/23/16 06:30 WBC 14.9 H Hgb 8.0 L Hct 24.9 L Plt Count 338 incision c/d/i, calf soft, nt nvi immobilizer intact- some serous drainage from posterior elbow a/p PT if able oob if able pain control dvt ppx d/c planning
[2016-07-23] MEDS ORDERED: PT OWN MED DRAWER 7, Y5N ONE (09:37)
[2016-07-23] MEDS: CHOLECALCIFEROL (VITAMIN D3) 1,000 UNIT TABLET (FP) PO SCH (09:39)
[2016-07-23] MEDS: FUROSEMIDE 40 MG TABLET (FP) PO SCH (09:39)
[2016-07-23] MEDS: APIXABAN 2.5 MG TABLET PO SCH ×2 (09:39→22:16)
[2016-07-23] MEDS: DOCUSATE SODIUM 100 MG CAPSULE (FP) PO SCH ×2 (09:40→22:18)
[2016-07-23] MEDS: POLYETHYLENE GLYCOL 3350 119 GM BTL PO SCH ×2 (09:40→22:18)
--- NOTE | 2016-07-23 11:21 | PN ---
Progress Note (short form) - Note Progress Note: s/p HD yesterday Vital Signs Period Temp Pulse Resp BP Sys/Adams Pulse Ox Last 24 Hr 97.2 F-98.1 F 62-93 18-20 85-132/38-68 97 cor-rrr llungs decreased bs at bases abd- firm, nt ext +serous oozing from left arm incision left hip intact +edema CBC, BMP 07/23/16 06:30 07/23/16 06:30 Microbiology 07/21/16 12:20 Blood - Peripheral Venous Blood Culture - Final Escherichia Coli Esbl Finishing Machine Tender 07/17/16 12:15 Blood - Peripheral Venous Blood Culture - Final NO GROWTH AFTER 5 DAYS INCUBATION 07/17/16 12:15 Blood - Peripheral Venous Blood Culture - Final NO GROWTH AFTER 5 DAYS INCUBATION 07/21/16 12:30 Blood - Peripheral Venous Blood Culture - Preliminary Gram Negative Thomas 07/22/16 11:27 Blood - Post-Dialysis Blood Culture - Preliminary Gram Negative Thomas 07/16/16 15:00 Hip - Right Gram Stain - Final 07/16/16 15:00 Hip - Right Wound Culture - Final Staphylococcus Haemolyticus 07/10/16 07:00 Urine - Urine Cooper Urine Culture - Final Escherichia Coli a/p ecoli esbl bacteremia hip incision no signs of purulence 25 cc on straight cath- ua and urine culture pending contact isolation ertapenem daily ?source- consider ct scan abd/pelvis- s/p fall with hip and humerus fracture s/p gamma nail 2 esrd/hd diabetes obesity would repeat blood cultures with HD in am family aware of need for isolation
--- NOTE | 2016-07-23 12:18 | PN ---
Progress Note (short form) - Note Progress Note: Chief Complaint: afib, sob History of Present Illness: denies incr leg swelling, cp, palpit, sob. Feels better today, more energy. + sweats. Current Medications Acetaminophen (Tylenol -) 650 mg PO Q4H PRN PRN Reason: FEVER OR PAIN Last Admin: 07/21/16 10:27 Dose: 650 mg Apixaban (Eliquis -) 2.5 mg PO BID [facility] Last Admin: 07/23/16 09:39 Dose: 2.5 mg Atorvastatin Calcium (Lipitor -) 10 mg PO HS [facility] Last Admin: 07/22/16 22:14 Dose: 10 mg Cholecalciferol (Vitamin D3 -) 1,000 unit PO DAILY [facility] Last Admin: 07/23/16 09:39 Dose: 1,000 unit Docusate Sodium (Colace -) 100 mg PO BID [facility] Last Admin: 07/23/16 09:40 Dose: Not Given Furosemide (Lasix -) 80 mg PO DAILY [facility] Last Admin: 07/23/16 09:39 Dose: 80 mg Ertapenem 0.5 gm/ Sodium (Chloride) 50 mls @ 50 mls/hr IVPB DAILY [facility] PRN Reason: Protocol Insulin Aspart (Novolog Vial Sliding Scale -) 1 vial SQ ACHS [facility] PRN Reason: Protocol Last Admin: 07/23/16 11:33 Dose: 1 units Lactulose (Cephulac (Oral Use)) 20 gm PO TID [facility] Last Admin: 07/23/16 06:42 Dose: Not Given Loratadine (Claritin -) 10 mg PO DAILY PRN PRN Reason: allergy Ondansetron HCl (Zofran Injection) 4 mg IVPB Q6H PRN PRN Reason: NAUSEA Oxycodone HCl (Roxicodone -) 10 mg PO Q4H PRN PRN Reason: PAIN Last Admin: 07/22/16 22:14 Dose: 10 mg Polyethylene Glycol (Miralax (For Daily Use) -) 17 gm PO BID [facility] Last Admin: 07/23/16 09:40 Dose: Not Given Vital Signs - 24 hr 07/22/16 07/22/16 07/22/16 14:27 20:52 21:44 Temperature 98.1 F 97.9 F Pulse Rate 82 90 Respiratory 20 20 Rate Blood Pressure 132/68 O2 Sat by Pulse 97 Oximetry (%) 07/23/16 07/23/16 07:11 08:00 Temperature 97.5 F L 97.2 F L Pulse Rate 91 H 93 H Respiratory 20 20 Rate Blood Pressure 126/64 109/55 O2 Sat by Pulse Oximetry (%) Intake & Output 07/21/16 07/22/16 07/23/16 07/24/16 07:59 07:59 07:59 07:59 Intake Total 500 1070 320 500 Output Total 0 0 Balance 500 1070 320 500 Weight 209 lb 9 oz 207 lb 3 oz 207 lb 3 oz Constitutional: Yes: No Distress, Calm, Obese. Diaphoretic Cardiovascular: Yes: Pulse Irregular, S1, S2. No: JVD (tds habitus), Gallop, Murmur Respiratory: Yes: Regular, CTA Bilaterally (limi), Wheezes (limited due to pain on positioning). No: Accessory Muscle Use, Rales Extremities: No: Cold Edema: Yes (chr nonpitting (stable) to abdomen) Neurological: Yes: Alert, Oriented Psychiatric: No: Agitated Labs: CBC, BMP 07/23/16 06:30 07/23/16 06:30 Microbiology 07/21/16 12:30 Blood - Peripheral Venous Blood Culture - Preliminary Pending Organism 07/21/16 12:20 Blood - Peripheral Venous Blood Culture - Preliminary Gram Negative Thomas Assessment/Plan echo 08/2015: nl lv/rv. mild lae. valves wnl. no rvsp. A/p: 85 yo with CAD s/p AZUL to RCA '14, Afib on eliquis, dCHF, HTN, HL, IDDM, GEORGE declines CPAP and CKD on HD who presents s/p fall c/b hip fracture. CAD s/p AZUL to RCA in 03/2014 - on statin. not on ASA b/c of hi risk gib and on AC. - stable, no anginal symptoms, nl lvef Afib - off AV alexandr blockade due to prior bradycardia (AT/AFL with slow conduction). - rate here is overall controlled--no change meds. - pain mgm't per pmd/surgery - Dr. Juan d/w'd pt, and dtr at bedside --she was (again) confused about her meds and eliquis (rx'd months ago as outpt after in-depth discussion with pt and , b/c she proved incapable of complying with warfarin/INRs) had fallen off as outpt; - they express concerns over s.e./bleeding risk; Dr. Juan advised them that her CHADS VASC score = 7, with approx 9%/year risk of stroke; in general population studied, the risk of serious life-threatening bleeding with eliquis is far lower than this % on an annual basis; - Dr. juan d/w'd them at length her recent fall--she had been stable for 3 yrs without falls with regular walker use and no more stairs (sleeps on ground floor now), but this time didn't use walker when got up from her chair and suddenly lost her balance; they feel she can arrange to always have walker with her and hence avoid repeated falls; - Dr. Juan advised them ASA will have much less (if any) stroke prevention benefits, but we can use that instead if they decline NOAC, and told them if she starts it but decides to stop it at home they must inform Dr. juan so he can change her to ASA; also advised them if she is having issues with balance or falls despite walker use, to inform Dr. Juan so we can reconsider risk: benefit equation; they repeatedly expressed their understanding of all above and she verbalized she would like to try eliquis for now and will follow above instrxns chronic HFPEF, chronic venous insuff: - stable, no signif volume excess (chronic LE edema is stable) - incr sob today, with + wheezing on exam; pt anuric so diuresis not the answer here - 2/10 cxr fluid in fissure, prominent hilar markings - volume mgm't with HD and po lasix per renal. HTN - Currently running low in setting of HD, bacteremia, UTI. Off anti- hypertensives. Further mgm't of infection per ID, pmd and renal. ESRD on HD/hyperkalemia/hyponatremia - volume mgm't with HD and po lasix per renal. GEORGE on CPAP - stable hyponatremia: - per renal
--- NOTE | 2016-07-23 12:23 | PN ---
Physical Exam: SUBJECTIVE: Patient seen and examined at bedside. Denies pain of any type. Denies fever, sweats, chills. OBJECTIVE: Vital Signs Period Temp Pulse Resp BP Sys/Adams Pulse Ox Last 24 Hr 97.2 F-98.1 F 82-93 20-20 109-132/55-68 97 GENERAL: The patient is awake, alert, and fully oriented, in no acute distress. HEAD: Normal with no signs of trauma. EYES: PERRL, extraocular movements intact, sclera anicteric, conjunctiva clear. No ptosis. LUNGS: Breath sounds equal, clear to auscultation bilaterally, no wheezes, no crackles, no accessory muscle use. HEART: Regular rate and rhythm, S1, S2 without murmur, rub or gallop. ABDOMEN: Soft, nontender, nondistended, normoactive bowel sounds, no guarding, no rebound UPPER EXTREMITIES: Edematous bilaterally, skin tears, weeping sanguinous fluid right upper arms LOWER EXTREMITIES: Left hip surgical geovanni in place, wound edges well- approximated, no erythema, no edema, no exudate; b/l edema NEUROLOGICAL: Cranial nerves II through XII grossly intact. Normal speech, gait not observed. Laboratory Results - last 24 hr 07/22/16 07/22/16 07/22/16 16:30 17:07 22:13 WBC RBC Hgb Hct MCV MCHC RDW Plt Count MPV Neutrophils % Lymphocytes % Monocytes % Eosinophils % Basophils % Sodium Potassium Chloride Carbon Dioxide Anion Gap BUN Creatinine POC Glucometer 225 272 Random Glucose Calcium Phosphorus Magnesium Urine Color Di Urine Appearance Turbid Urine pH 5.0 Ur Specific [place] 1.019 Urine Protein 1+ H Urine Glucose (UA) 1+ H D Urine Ketones Negative Urine Blood 2+ H Urine Nitrite Negative Urine Bilirubin Negative Urine Urobilinogen Negative Ur Leukocyte Esterase 2+ H 07/23/16 07/23/16 07/23/16 06:30 06:30 06:41 WBC 14.9 H RBC 2.37 L Hgb 8.0 L Hct 24.9 L MCV 105.2 H MCHC 32.0 RDW 14.8 Plt Count 338 MPV 8.5 Neutrophils % 85.7 H Lymphocytes % 7.9 L Monocytes % 4.6 Eosinophils % 1.4 Basophils % 0.4 D Sodium 130 L Potassium 3.6 D Chloride 89 L Carbon Dioxide 30 Anion Gap 11 BUN 31 H D Creatinine 2.8 H D POC Glucometer 202 Random Glucose 166 H Calcium 8.2 L Phosphorus 2.7 D Magnesium 2.0 Urine Color Urine Appearance Urine pH Ur Specific [place] Urine Protein Urine Glucose (UA) Urine Ketones Urine Blood Urine Nitrite Urine Bilirubin Urine Urobilinogen Ur Leukocyte Esterase 07/23/16 11:30 WBC RBC Hgb Hct MCV MCHC RDW Plt Count MPV Neutrophils % Lymphocytes % Monocytes % Eosinophils % Basophils % Sodium Potassium Chloride Carbon Dioxide Anion Gap BUN Creatinine POC Glucometer 173 Random Glucose Calcium Phosphorus Magnesium Urine Color Urine Appearance Urine pH Ur Specific [place] Urine Protein Urine Glucose (UA) Urine Ketones Urine Blood Urine Nitrite Urine Bilirubin Urine Urobilinogen Ur Leukocyte Esterase Active Medications Generic Name Dose Route Start Last Admin Trade Name Freq PRN Reason Stop Dose Admin Acetaminophen 650 mg 07/10/16 16:54 07/21/16 10:27 Tylenol - PO 650 mg Q4H PRN Administration FEVER OR PAIN Apixaban 2.5 mg 07/19/16 22:00 07/23/16 09:39 Eliquis - PO 2.5 mg BID [facility] Administration Atorvastatin Calcium 10 mg 07/10/16 22:00 07/22/16 22:14 Lipitor - PO 10 mg HS [facility] Administration Cholecalciferol 1,000 unit 07/12/16 17:00 07/23/16 09:39 Vitamin D3 - PO 1,000 unit DAILY [facility] Administration Docusate Sodium 100 mg 07/10/16 22:00 07/23/16 09:40 Colace - PO Not Given BID [facility] Furosemide 80 mg 07/12/16 17:00 07/23/16 09:39 Lasix - PO 80 mg DAILY [facility] Administration Ertapenem 0.5 gm/ Sodium 50 mls @ 50 mls/hr 07/23/16 13:00 Chloride IVPB DAILY [facility] Protocol Insulin Aspart 1 vial 07/10/16 22:00 07/23/16 11:33 Novolog Vial Sliding Scale - SQ 1 units ACHS D[facility] Administration Protocol Lactulose 20 gm 07/17/16 15:15 07/23/16 06:42 Cephulac (Oral Use) PO Not Given TID [facility] Loratadine 10 mg 07/10/16 16:54 Claritin - PO DAILY PRN allergy Ondansetron HCl 4 mg 07/10/16 16:54 Zofran Injection IVPB Q6H PRN NAUSEA Oxycodone HCl 10 mg 07/16/16 14:37 07/22/16 22:14 Roxicodone - PO 10 mg Q4H PRN Administration PAIN Polyethylene Glycol 17 gm 07/18/16 10:00 07/23/16 09:40 Miralax (For Daily Use) - PO Not Given BID [facility] ASSESSMENT/PLAN 85 year-old woman with a PMH of HTN, HLD, CAD, diastolic heart failure, afib, ESRD on HD, anemia, DM and gout. Admitted for right femur intertrochanteric fracture s/p gamma nail repair on 07/10/16. Hospital course complicated by E. coli UTI and E.coli-ESBL bacteremia. Assessment/Plan (1) Hip fracture Assessment/Plan: -pain controlled -continue oxycodone -SNF placement Code(s): S72.009A - FRACTURE OF UNSP PART OF NECK OF UNSP FEMUR, INIT Qualifiers: Encounter type: initial encounter Fracture type: closed Laterality : right Qualified Code(s): S72.001A - Fracture of unspecified part of neck of right femur, initial encounter for closed fracture (2) (HFpEF) heart failure with preserved ejection fraction Assessment/Plan: -continue lasix -leg edema unchanged Code(s): I50.9 - HEART FAILURE, UNSPECIFIED (3) Bilateral leg edema Assessment/Plan: -stable Code(s): R60.0 - LOCALIZED EDEMA (4) Diabetes Assessment/Plan: -diabetic/renal diet Code(s): E11.9 - TYPE 2 DIABETES MELLITUS WITHOUT COMPLICATIONS (5) HTN (hypertension) Assessment/Plan: -well controlled -continue lasix Code(s): I10 - ESSENTIAL (PRIMARY) HYPERTENSION (6) Hyperkalemia Assessment/Plan: -resolved with HD Code(s): E87.5 - HYPERKALEMIA (7) End stage renal failure on dialysis Assessment/Plan: -continue HD per nephrology Code(s): N18.6 - END STAGE RENAL DISEASE Z99.2 - DEPENDENCE ON RENAL DIALYSIS (8) Obesity Code(s): E66.9 - OBESITY, UNSPECIFIED Qualifiers: Obesity severity: morbid (9) Hyponatremia -improved 126-->130; continue fluid restriction (10) Sepsis -07/10 Urine: E.coli -07/16 Hip surgical site: staph haemolyticus -07/21 Blood x 2 peripheral: GNR -07/22 Blood from HD: GNR -07/22 Urine: pending -started on ertapenem today by ID -concern for surgical site infection but wound looks good -lungs are clear, lower suspicion for pneumonia -recommend CT chest, abdomen, pelvis (11) Anemia -secondary to renal function -continue epo (12) Severe constipation -+bm -continue stool softeners DVT prophylaxis: on Eliquis Visit type - Emergency Visit Emergency Visit: Yes ED Registration Date: 07/09/16 Care time: The patient presented to the Emergency Department on the above date and was hospitalized for further evaluation of their emergent condition. - New Patient This patient is new to me today: Yes Date on this admission: 07/23/16 - Critical Care Critical Care patient: No
--- NOTE | 2016-07-23 12:27 | PN ---
Progress Note (short form) - Note Progress Note: Renal Follow up for ESRD on HD Pt seen and examined at the bedside Vital Signs Temperature 97.2 F L 07/23/16 08:00 Pulse Rate 93 H 07/23/16 08:00 Respiratory Rate 20 07/23/16 08:00 Blood Pressure 109/55 07/23/16 08:00 O2 Sat by Pulse Oximetry (%) 97 07/22/16 20:52 Intake & Output 07/20/16 07/21/16 07/22/16 07/23/16 23:59 23:59 23:59 23:59 Intake Total 800 970 300 620 Output Total 0 0 Balance 800 970 300 620 Weight 209 lb 9 oz 207 lb 3 oz 207 lb 3 oz Gen: NAD, awake and alert CVS: irregular, no M/R Lungs: Dec BS Lung bases, no rales Abd: soft NT/ND Ext: Trace to 1+ edema in LE Access: Left ARM AVF CBC, BMP 07/23/16 06:30 07/23/16 06:30 Current Medications Acetaminophen (Tylenol -) 650 mg PO Q4H PRN PRN Reason: FEVER OR PAIN Last Admin: 07/21/16 10:27 Dose: 650 mg Apixaban (Eliquis -) 2.5 mg PO BID [facility] Last Admin: 07/23/16 09:39 Dose: 2.5 mg Atorvastatin Calcium (Lipitor -) 10 mg PO HS [facility] Last Admin: 07/22/16 22:14 Dose: 10 mg Cholecalciferol (Vitamin D3 -) 1,000 unit PO DAILY [facility] Last Admin: 07/23/16 09:39 Dose: 1,000 unit Docusate Sodium (Colace -) 100 mg PO BID [facility] Last Admin: 07/23/16 09:40 Dose: Not Given Furosemide (Lasix -) 80 mg PO DAILY [facility] Last Admin: 07/23/16 09:39 Dose: 80 mg Ertapenem 0.5 gm/ Sodium (Chloride) 50 mls @ 50 mls/hr IVPB DAILY [facility] PRN Reason: Protocol Insulin Aspart (Novolog Vial Sliding Scale -) 1 vial SQ ACHS [facility] PRN Reason: Protocol Last Admin: 07/23/16 11:33 Dose: 1 units Lactulose (Cephulac (Oral Use)) 20 gm PO TID [facility] Last Admin: 07/23/16 06:42 Dose: Not Given Loratadine (Claritin -) 10 mg PO DAILY PRN PRN Reason: allergy Ondansetron HCl (Zofran Injection) 4 mg IVPB Q6H PRN PRN Reason: NAUSEA Oxycodone HCl (Roxicodone -) 10 mg PO Q4H PRN PRN Reason: PAIN Last Admin: 07/22/16 22:14 Dose: 10 mg Polyethylene Glycol (Miralax (For Daily Use) -) 17 gm PO BID [facility] Last Admin: 07/23/16 09:40 Dose: Not Given A/P 85 year old woman with PMhx of ESRD on HD (MWF), Afib on A/C, HTN, CAD s/p stents, CHF, DM who presented s/p fall with multiple fractures. #ESRD on HD no acute indication for dialysis today next HD planned for tomorrow #Fever/Gram Negative Bacteria ? urinary source -> intially grew E.Coli in urine but did get Abx on presentation s/p Gent and Ceftaz with HD yesterda continue ertapenum daily as per ID f/u urine and repeat blood cultures #Hyponatremia From excess fluid intake 1L fluid restriction daily pt is not compliant with fluid restriction #Intertrochanteric hip fx/Humerus Fracture s/p Gamma Nail Arm in immobilizer Pain control #CKD Related Anemia trend CBC Goal Hgb > 10 ARI with dialysis Massimo Melissa DO
[2016-07-23] MEDS: ERTAPENEM SODIUM 0.5 GM in SODIUM CHLORIDE 50 ML IVPB SCH (14:13)
[2016-07-23] MEDS: oxyCODONE HCL 5 MG TABLET PO PRN (22:16)
[2016-07-23] MEDS: ATORVASTATIN CA 10 MG TABLET (FP) PO SCH (22:17)
[2016-07-24] MEDS: oxyCODONE HCL 5 MG TABLET PO PRN ×3 (01:53→14:34)
[2016-07-24] MEDS: LACTULOSE 20 GM/30 ML UDC (FOR ORAL USE ONLY) PO SCH ×3 (05:42→22:29)
[2016-07-24] MEDS: INSULIN SLIDING SCALE (NOVOLOG) 1 VIAL SQ SCH ×4 (06:14→21:10)
[2016-07-24] MEDS ORDERED: PT OWN MED DRAWER 7, Y5N ONE (09:35)
[2016-07-24] MEDS: POLYETHYLENE GLYCOL 3350 119 GM BTL PO SCH ×2 (09:36→22:30)
[2016-07-24] MEDS: DOCUSATE SODIUM 100 MG CAPSULE (FP) PO SCH ×2 (09:36→22:29)
[2016-07-24] MEDS ORDERED: EPOETIN ALFA 20,000 UNIT/1 ML VIAL IVPUSH ONE (10:00)
[2016-07-24 10:13] LABS: MCH 33.6 pg (25.7-33.7); MCHC 32.3 g/dl (32.0-36.0); MEAN CELL VOLUME 103.9 fl (80-96); MEAN PLT VOLUME 8.6 fl (7.5-11.1); PLATELET COUNT 353 K/MM3 (134-434); WHITE BLOOD COUNT 13.9 K/mm3 (4.0-10.0)
--- NOTE | 2016-07-24 10:20 | PN ---
Progress Note (short form) - Note Progress Note: Ortho Pt seen and examined s/p right IM gamma nail, right distal humerus fx Selected Entries 07/24/16 08:00 Temperature 97.5 F L Pulse Rate 96 H Respiratory 18 Rate Blood Pressure 116/71 incision c/d/i, calf soft, nt nvi immobilizer intact a/p PT if able oob if able pain control dvt ppx d/c planning
[2016-07-24 10:42] LABS: BILIRUBIN,TOTAL 0.8 mg/dL (0.2-1.0); CALCIUM 8.1 mg/dL (8.5-10.1); CREATININE 3.5 mg/dL (0.55-1.02); PHOSPHOROUS 3.4 mg/dL (2.5-4.9); TOT PROT 5.5 g/dl (6.4-8.2)
--- NOTE | 2016-07-24 11:39 | PN ---
Progress Note (short form) - Note Progress Note: s: no cp sob palps dizzy o: Vital Signs Period Temp Pulse Resp BP Sys/Adams Pulse Ox Last 24 Hr 97.1 F-97.7 F 73-96 18-20 98-128/45-73 96 NAD. calm JVD difficult to assess due to neck habitus, but does not appear elevated RRR nl S1 S2. No S3, S4 or mrg cta bl, nl effort + BS, soft, obese, ND, NT Venous stasis changes with trace LE edema No jaundice, no diaphoresis. aaox3 Current Medications Generic Name Dose Route Start Last Admin Trade Name Freq PRN Reason Stop Dose Admin Acetaminophen 650 mg 07/10/16 16:54 07/21/16 10:27 Tylenol - PO 650 mg Q4H PRN Administration FEVER OR PAIN Apixaban 2.5 mg 07/19/16 22:00 07/23/16 22:16 Eliquis - PO 2.5 mg BID [facility] Administration Atorvastatin Calcium 10 mg 07/10/16 22:00 07/23/16 22:17 Lipitor - PO 10 mg HS [facility] Administration Cholecalciferol 1,000 unit 07/12/16 17:00 07/23/16 09:39 Vitamin D3 - PO 1,000 unit DAILY [facility] Administration Docusate Sodium 100 mg 07/10/16 22:00 07/24/16 09:36 Colace - PO Not Given BID [facility] Furosemide 80 mg 07/12/16 17:00 07/23/16 09:39 Lasix - PO 80 mg DAILY [facility] Administration Ertapenem 0.5 gm/ Sodium 50 mls @ 50 mls/hr 07/23/16 13:00 07/23/16 14:13 Chloride IVPB 50 mls/hr DAILY [facility] Administration Protocol Insulin Aspart 1 vial 07/10/16 22:00 07/24/16 06:14 Novolog Vial Sliding Scale - SQ Not Given ACHS [facility] Protocol Lactulose 20 gm 07/17/16 15:15 07/24/16 05:42 Cephulac (Oral Use) PO Not Given TID [facility] Loratadine 10 mg 07/10/16 16:54 Claritin - PO DAILY PRN allergy Multivit/Ca Carb/B Cmplx/FA/Prenat 1 tablet 07/24/16 10:00 Nephro-Annie - PO DAILY [facility] Ondansetron HCl 4 mg 07/10/16 16:54 Zofran Injection IVPB Q6H PRN NAUSEA Oxycodone HCl 10 mg 07/16/16 14:37 07/24/16 05:41 Roxicodone - PO 10 mg Q4H PRN Administration PAIN Polyethylene Glycol 17 gm 07/18/16 10:00 07/24/16 09:36 Miralax (For Daily Use) - PO Not Given BID [facility] CBC, BMP 07/24/16 09:00 07/24/16 09:00 EKG: afib 115 bpm. LAD. LAFB. incomplete RBBB. poor r wave progression. echo 08/2015: nl lv/rv. mild lae. valves wnl. no rvsp. A/p: 85 yo with CAD s/p AZUL to RCA ', Afib on eliquis, dCHF, HTN, HL, IDDM, GEORGE declines CPAP and CKD on HD who presents s/p fall c/b hip fracture. CAD s/p AZUL to RCA in 03/2014 - on statin. not on ASA b/c of hi risk gib and on AC. - stable, no anginal symptoms, nl lvef Afib - off AV alexandr blockade due to prior bradycardia (AT/AFL with slow conduction). - rate here is overall controlled--no change meds. - pain mgm't per pmd/surgery - Dr. Oh d/w'd pt, and dtr at bedside --she was (again) confused about her meds and eliquis (rx'd months ago as outpt after in-depth discussion with pt and , b/c she proved incapable of complying with warfarin/INRs) had fallen off as outpt; - they express concerns over s.e./bleeding risk; Dr. Oh advised them that her CHADS VASC score = 7, with approx 9%/year risk of stroke; in general population studied, the risk of serious life-threatening bleeding with eliquis is far lower than this % on an annual basis; - Dr. oh d/w'd them at length her recent fall--she had been stable for 3 yrs without falls with regular walker use and no more stairs (sleeps on ground floor now), but this time didn't use walker when got up from her chair and suddenly lost her balance; they feel she can arrange to always have walker with her and hence avoid repeated falls; - Dr. Oh advised them ASA will have much less (if any) stroke prevention benefits, but we can use that instead if they decline NOAC, and told them if she starts it but decides to stop it at home they must inform Dr. oh so he can change her to ASA; also advised them if she is having issues with balance or falls despite walker use, to inform Dr. Oh so we can reconsider risk: benefit equation; they repeatedly expressed their understanding of all above and she verbalized she would like to try eliquis for now and will follow above instrxns chronic HFPEF, chronic venous insuff: - stable, no signif volume excess (chronic LE edema is stable) - volume mgm't with HD per renal. HTN - Currently running low in setting of HD, bacteremia, UTI. Off anti- hypertensives. Further mgm't of infection per ID, pmd and renal. ESRD on HD/hyperkalemia/hyponatremia - volume mgm't with HD and po lasix per renal. GEORGE on CPAP - stable
[2016-07-24 12:00] LABS: ANISOCYTOSIS 1+; HYPOCHROMIA 3+; PLATELET ESTIMATE ADEQUATE (NORMAL); POLYCHROMASIA 1+; TARGET CELLS 1+
--- NOTE | 2016-07-24 13:37 | PN ---
Progress Note (short form) - Note Progress Note: Renal Follow up for ESRD on HD Pt seen and examined during dialysis BP stable 120/60's, goal UF is 3L pt reports feeling cold but no chills or fever access with good flow Vital Signs Temperature 97.5 F L 07/24/16 08:00 Pulse Rate 93 H 07/24/16 12:00 Respiratory Rate 18 07/24/16 12:00 Blood Pressure 123/48 07/24/16 12:00 O2 Sat by Pulse Oximetry (%) 96 07/24/16 09:00 Intake & Output 07/21/16 07/22/16 07/23/16 07/24/16 23:59 23:59 23:59 23:59 Intake Total 970 300 770 120 Output Total 0 Balance 970 300 770 120 Weight 209 lb 9 oz 207 lb 3 oz 207 lb 3 oz 207 lb Gen: NAD, awake and alert CVS: irregular, no M/R Lungs: Dec BS Lung bases, no rales Abd: soft NT/ND Ext: Trace to 1+ edema in LE Access: Left ARM AVF CBC, BMP 07/24/16 09:00 07/24/16 09:00 Current Medications Acetaminophen (Tylenol -) 650 mg PO Q4H PRN PRN Reason: FEVER OR PAIN Last Admin: 07/21/16 10:27 Dose: 650 mg Apixaban (Eliquis -) 2.5 mg PO BID [facility] Last Admin: 07/23/16 22:16 Dose: 2.5 mg Atorvastatin Calcium (Lipitor -) 10 mg PO HS [facility] Last Admin: 07/23/16 22:17 Dose: 10 mg Cholecalciferol (Vitamin D3 -) 1,000 unit PO DAILY [facility] Last Admin: 07/23/16 09:39 Dose: 1,000 unit Docusate Sodium (Colace -) 100 mg PO BID [facility] Last Admin: 07/24/16 09:36 Dose: Not Given Furosemide (Lasix -) 80 mg PO DAILY [facility] Last Admin: 07/23/16 09:39 Dose: 80 mg Ertapenem 0.5 gm/ Sodium (Chloride) 50 mls @ 50 mls/hr IVPB DAILY [facility] PRN Reason: Protocol Last Admin: 07/23/16 14:13 Dose: 50 mls/hr Insulin Aspart (Novolog Vial Sliding Scale -) 1 vial SQ ACHS [facility] PRN Reason: Protocol Last Admin: 07/24/16 06:14 Dose: Not Given Lactulose (Cephulac (Oral Use)) 20 gm PO TID [facility] Last Admin: 07/24/16 05:42 Dose: Not Given Loratadine (Claritin -) 10 mg PO DAILY PRN PRN Reason: allergy Multivit/Ca Carb/B Cmplx/FA/Prenat (Nephro-Annie -) 1 tablet PO DAILY [facility] Ondansetron HCl (Zofran Injection) 4 mg IVPB Q6H PRN PRN Reason: NAUSEA Oxycodone HCl (Roxicodone -) 10 mg PO Q4H PRN PRN Reason: PAIN Last Admin: 07/24/16 05:41 Dose: 10 mg Polyethylene Glycol (Miralax (For Daily Use) -) 17 gm PO BID [facility] Last Admin: 07/24/16 09:36 Dose: Not Given A/P 85 year old woman with PMhx of ESRD on HD (MWF), Afib on A/C, HTN, CAD s/p stents, CHF, DM who presented s/p fall with multiple fractures. #ESRD on HD tolerating dialysis well #Fever/Gram Negative Bacteria ? urinary source -> intially grew E.Coli in urine but did get Abx on presentation Continue Ertapenum f/u repeat cultures drawn today #Hyponatremia From excess fluid intake 1L fluid restriction daily pt is not compliant with fluid restriction #Intertrochanteric hip fx/Humerus Fracture s/p Gamma Nail Arm in immobilizer Pain control #CKD Related Anemia trend CBC Goal Hgb > 10 ARI with dialysis Massimo Melissa DO
[2016-07-24] MEDS: ERTAPENEM SODIUM 0.5 GM in SODIUM CHLORIDE 50 ML IVPB SCH (14:33)
[2016-07-24] MEDS: FUROSEMIDE 40 MG TABLET (FP) PO SCH (14:33)
[2016-07-24] MEDS: VITAMIN B COMP W-C 1 EA TABLET PO SCH (14:34)
[2016-07-24] MEDS: APIXABAN 2.5 MG TABLET PO SCH ×2 (14:34→22:30)
[2016-07-24] MEDS: CHOLECALCIFEROL (VITAMIN D3) 1,000 UNIT TABLET (FP) PO SCH (14:34)
--- NOTE | 2016-07-24 16:29 | PN ---
Progress Note, Physician Chief Complaint: Ms Mcdonnell is without complaint. No cp, sob, n/v. Pain controlled. - Current Medication List Current Medications: Active Medications Acetaminophen (Tylenol -) 650 mg PO Q4H PRN PRN Reason: FEVER OR PAIN Last Admin: 07/21/16 10:27 Dose: 650 mg Apixaban (Eliquis -) 2.5 mg PO BID [facility] Last Admin: 07/24/16 14:34 Dose: 2.5 mg Atorvastatin Calcium (Lipitor -) 10 mg PO HS [facility] Last Admin: 07/23/16 22:17 Dose: 10 mg Cholecalciferol (Vitamin D3 -) 1,000 unit PO DAILY [facility] Last Admin: 07/24/16 14:34 Dose: 1,000 unit Docusate Sodium (Colace -) 100 mg PO BID [facility] Last Admin: 07/24/16 09:36 Dose: Not Given Furosemide (Lasix -) 80 mg PO DAILY [facility] Last Admin: 07/24/16 14:33 Dose: 80 mg Ertapenem 0.5 gm/ Sodium (Chloride) 50 mls @ 50 mls/hr IVPB DAILY [facility] PRN Reason: Protocol Last Admin: 07/24/16 14:33 Dose: 50 mls/hr Insulin Aspart (Novolog Vial Sliding Scale -) 1 vial SQ ACHS [facility]W PRN Reason: Protocol Last Admin: 07/24/16 14:40 Dose: Not Given Lactulose (Cephulac (Oral Use)) 20 gm PO TID [facility] Last Admin: 07/24/16 14:27 Dose: Not Given Loratadine (Claritin -) 10 mg PO DAILY PRN PRN Reason: allergy Multivit/Ca Carb/B Cmplx/FA/Prenat (Nephro-Annie -) 1 tablet PO DAILY [facility] Last Admin: 07/24/16 14:34 Dose: 1 tablet Nystatin (Mycostatin Cream -) 1 applic TP BID [facility] Ondansetron HCl (Zofran Injection) 4 mg IVPB Q6H PRN PRN Reason: NAUSEA Oxycodone HCl (Roxicodone -) 10 mg PO Q4H PRN PRN Reason: PAIN Last Admin: 07/24/16 14:34 Dose: 10 mg Polyethylene Glycol (Miralax (For Daily Use) -) 17 gm PO BID [facility] Last Admin: 07/24/16 09:36 Dose: Not Given - Objective Vital Signs: Vital Signs Temperature 98.6 F 07/24/16 15:54 Pulse Rate 85 07/24/16 13:47 Respiratory Rate 18 07/24/16 13:47 Blood Pressure 116/66 07/24/16 13:47 O2 Sat by Pulse Oximetry (%) 96 07/24/16 09:00 Constitutional: Yes: No Distress, Calm, Obese Cardiovascular: Yes: Regular Rate and Rhythm. No: Gallop, Murmur, Rub Respiratory: Yes: Regular, CTA Bilaterally. No: Rales, Rhonchi, Wheezes Gastrointestinal: Yes: Normal Bowel Sounds, Distention. No: Soft, Tenderness Extremities: Yes: Erythema Edema: Yes Edema: LLE: 2+, RLE: 2+ Labs: CBC, BMP 07/24/16 09:00 07/24/16 09:00 INR, PTT INR 1.18 (0.82-1.09) H 07/10/16 07:40 Problem List - Problems (1) Hip fracture Code(s): S72.009A - FRACTURE OF UNSP PART OF NECK OF UNSP FEMUR, INIT Qualifiers: Encounter type: initial encounter Fracture type: closed Laterality : right Qualified Code(s): S72.001A - Fracture of unspecified part of neck of right femur, initial encounter for closed fracture (2) (HFpEF) heart failure with preserved ejection fraction Code(s): I50.9 - HEART FAILURE, UNSPECIFIED (3) Bilateral leg edema Code(s): R60.0 - LOCALIZED EDEMA (4) Diabetes Code(s): E11.9 - TYPE 2 DIABETES MELLITUS WITHOUT COMPLICATIONS (5) HTN (hypertension) Code(s): I10 - ESSENTIAL (PRIMARY) HYPERTENSION (6) Hyperkalemia Code(s): E87.5 - HYPERKALEMIA (7) End stage renal failure on dialysis Code(s): N18.6 - END STAGE RENAL DISEASE Z99.2 - DEPENDENCE ON RENAL DIALYSIS (8) Obesity Code(s): E66.9 - OBESITY, UNSPECIFIED Qualifiers: Obesity severity: morbid (9) Anemia Code(s): D64.9 - ANEMIA, UNSPECIFIED (10) Hyponatremia Code(s): E87.1 - HYPO-OSMOLALITY AND HYPONATREMIA (11) UTI (urinary tract infection) Code(s): N39.0 - URINARY TRACT INFECTION, SITE NOT SPECIFIED Assessment/Plan (1) Hip fracture Assessment/Plan: -pain controlled -continue oxycodone -SNF placement when medically stable Code(s): S72.009A - FRACTURE OF UNSP PART OF NECK OF UNSP FEMUR, INIT Qualifiers: Encounter type: initial encounter Fracture type: closed Laterality : right Qualified Code(s): S72.001A - Fracture of unspecified part of neck of right femur, initial encounter for closed fracture (2) (HFpEF) heart failure with preserved ejection fraction Assessment/Plan: -continue lasix -leg edema unchanged Code(s): I50.9 - HEART FAILURE, UNSPECIFIED (3) Bilateral leg edema Assessment/Plan: -stable Code(s): R60.0 - LOCALIZED EDEMA (4) Diabetes Assessment/Plan: -diabetic/renal diet Code(s): E11.9 - TYPE 2 DIABETES MELLITUS WITHOUT COMPLICATIONS (5) HTN (hypertension) Assessment/Plan: -well controlled -continue lasix Code(s): I10 - ESSENTIAL (PRIMARY) HYPERTENSION (6) Hyperkalemia Assessment/Plan: -resolved with HD Code(s): E87.5 - HYPERKALEMIA (7) End stage renal failure on dialysis Assessment/Plan: -continue HD per nephrology Code(s): N18.6 - END STAGE RENAL DISEASE Z99.2 - DEPENDENCE ON RENAL DIALYSIS (8) Obesity Code(s): E66.9 - OBESITY, UNSPECIFIED Qualifiers: Obesity severity: morbid (9) Hyponatremia -patient not compliant with fluid restriction -limit amount of fluid in patient room -monitor (10) Sepsis -patient with bacteremia and UTI -UTI is now growing enterococcus, change from previous treated e. coli -ertapenem started (11) Anemia -secondary to renal function -continue epo per nephrology (12) Severe constipation -continue stool softeners
[2016-07-24] MEDS ORDERED: INSULIN (NOVOLOG) ASPART 100 UNITS/ML 10ML VIAL ONE (16:57)
[2016-07-24] MEDS: ATORVASTATIN CA 10 MG TABLET (FP) PO SCH (22:29)
[2016-07-24] MEDS: NYSTATIN 100,000 UNIT/GM TOPICAL CREAM 15 GM TUBE TP SCH (22:30)
[2016-07-25] MEDS: LACTULOSE 20 GM/30 ML UDC (FOR ORAL USE ONLY) PO SCH (05:21)
[2016-07-25] MEDS: INSULIN SLIDING SCALE (NOVOLOG) 1 VIAL SQ SCH ×4 (06:02→22:01)
[2016-07-25 06:51] LABS: MCH 33.3 pg (25.7-33.7); MCHC 32.1 g/dl (32.0-36.0); MEAN CELL VOLUME 103.8 fl (80-96); MEAN PLT VOLUME 8.2 fl (7.5-11.1); PLATELET COUNT 376 K/MM3 (134-434); RDW 14.6 % (11.6-15.6); WHITE BLOOD COUNT 12.3 K/mm3 (4.0-10.0)
[2016-07-25 07:32] LABS: CREATININE 2.4 mg/dL (0.55-1.02); MAGNESIUM 1.8 mg/dL (1.8-2.4); PHOSPHOROUS 2.5 mg/dL (2.5-4.9)
[2016-07-25] MEDS ORDERED: PT OWN MED DRAWER 7, Y5N ONE ×2 (09:21→20:50)
[2016-07-25] MEDS: VITAMIN B COMP W-C 1 EA TABLET PO SCH (09:33)
[2016-07-25] MEDS: DOCUSATE SODIUM 100 MG CAPSULE (FP) PO SCH ×2 (09:33→21:11)
[2016-07-25] MEDS: ERTAPENEM SODIUM 0.5 GM in SODIUM CHLORIDE 50 ML IVPB SCH (09:33)
[2016-07-25] MEDS: APIXABAN 2.5 MG TABLET PO SCH ×2 (09:33→21:07)
[2016-07-25] MEDS: CHOLECALCIFEROL (VITAMIN D3) 1,000 UNIT TABLET (FP) PO SCH (09:34)
[2016-07-25] MEDS: POLYETHYLENE GLYCOL 3350 119 GM BTL PO SCH ×2 (09:34→21:10)
[2016-07-25] MEDS: FUROSEMIDE 40 MG TABLET (FP) PO SCH (09:34)
[2016-07-25] MEDS: NYSTATIN 100,000 UNIT/GM TOPICAL CREAM 15 GM TUBE TP SCH ×2 (09:34→21:09)
[2016-07-25] MEDS ORDERED: INSULIN (NOVOLOG) ASPART 100 UNITS/ML 10ML VIAL ONE ×3 (11:41→21:57)
--- NOTE | 2016-07-25 11:44 | PN ---
Progress Note (short form) - Note Progress Note: s: no cp sob palps dizzy o: Vital Signs Period Temp Pulse Resp BP Sys/Adams Pulse Ox Last 24 Hr 97.2 F-98.6 F 70-98 18-22 100-135/46-76 100-100 NAD. calm JVD difficult to assess due to neck habitus, but does not appear elevated RRR nl S1 S2. No S3, S4 or mrg cta bl, nl effort + BS, soft, obese, ND, NT Venous stasis changes with trace LE edema No jaundice, no diaphoresis. aaox3 Current Medications Generic Name Dose Route Start Last Admin Trade Name Freq PRN Reason Stop Dose Admin Acetaminophen 650 mg 07/10/16 16:54 07/21/16 10:27 Tylenol - PO 650 mg Q4H PRN Administration FEVER OR PAIN Apixaban 2.5 mg 07/19/16 22:00 07/25/16 09:33 Eliquis - PO 2.5 mg BID DREW Administration Atorvastatin Calcium 10 mg 07/10/16 22:00 07/24/16 22:29 Lipitor - PO 10 mg HS DREW Administration Cholecalciferol 1,000 unit 07/12/16 17:00 07/25/16 09:34 Vitamin D3 - PO 1,000 unit DAILY [facility]W Administration Docusate Sodium 100 mg 07/10/16 22:00 07/25/16 09:33 Colace - PO Not Given BID DREW Furosemide 80 mg 07/12/16 17:00 07/25/16 09:34 Lasix - PO 80 mg DAILY [facility]W Administration Ertapenem 0.5 gm/ Sodium 50 mls @ 50 mls/hr 07/23/16 13:00 07/25/16 09:33 Chloride IVPB 50 mls/hr DAILY [facility]W Administration Protocol Insulin Aspart 1 vial 07/10/16 22:00 07/25/16 06:02 Novolog Vial Sliding Scale - SQ Not Given ACHS DREW Protocol Lactulose 20 gm 07/17/16 15:15 07/25/16 05:21 Cephulac (Oral Use) PO 20 gm TID DREW Administration Loratadine 10 mg 07/10/16 16:54 Claritin - PO DAILY PRN allergy Multivit/Ca Carb/B Cmplx/FA/Prenat 1 tablet 07/24/16 10:00 07/25/16 09:33 Nephro-Annie - PO 1 tablet DAILY [facility]REW Administration Nystatin 1 applic 07/24/16 22:00 07/25/16 09:34 Mycostatin Cream - TP 1 applic BID [facility]REW Administration Ondansetron HCl 4 mg 07/10/16 16:54 Zofran Injection IVPB Q6H PRN NAUSEA Oxycodone HCl 10 mg 07/16/16 14:37 07/24/16 14:34 Roxicodone - PO 10 mg Q4H PRN Administration PAIN Polyethylene Glycol 17 gm 07/18/16 10:00 07/25/16 09:34 Miralax (For Daily Use) - PO Not Given BID DREW CBC, BMP 07/25/16 06:30 07/25/16 06:30 EKG: afib 115 bpm. LAD. LAFB. incomplete RBBB. poor r wave progression. echo 08/2015: nl lv/rv. mild lae. valves wnl. no rvsp. A/p: 85 yo with CAD s/p AZUL to RCA ', Afib on eliquis, dCHF, HTN, HL, IDDM, GEORGE declines CPAP and CKD on HD who presents s/p fall c/b hip fracture. CAD s/p AZUL to RCA in 03/2014 - on statin. not on ASA b/c of hi risk gib and on AC. - remains stable, no anginal symptoms, nl lvef Afib - off AV alexandr blockade due to prior bradycardia (AT/AFL with slow conduction). - rate here is overall controlled - Dr. Oh d/w'd pt, and dtr at bedside --she was (again) confused about her meds and eliquis (rx'd months ago as outpt after in-depth discussion with pt and , b/c she proved incapable of complying with warfarin/INRs) had fallen off as outpt; - they express concerns over s.e./bleeding risk; Dr. Oh advised them that her CHADS VASC score = 7, with approx 9%/year risk of stroke; in general population studied, the risk of serious life-threatening bleeding with eliquis is far lower than this % on an annual basis; - Dr. oh d/w'd them at length her recent fall--she had been stable for 3 yrs without falls with regular walker use and no more stairs (sleeps on ground floor now), but this time didn't use walker when got up from her chair and suddenly lost her balance; they feel she can arrange to always have walker with her and hence avoid repeated falls; - Dr. Oh advised them ASA will have much less (if any) stroke prevention benefits, but we can use that instead if they decline NOAC, and told them if she starts it but decides to stop it at home they must inform Dr. oh so he can change her to ASA; also advised them if she is having issues with balance or falls despite walker use, to inform Dr. Oh so we can reconsider risk: benefit equation; they repeatedly expressed their understanding of all above and she verbalized she would like to try eliquis for now and will follow above instrxns chronic HFPEF, chronic venous insuff: - stable, no signif volume excess (chronic LE edema is stable) - volume mgm't with HD per renal. HTN - stable off meds here ESRD on HD/hyperkalemia/hyponatremia - volume mgm't with HD and po lasix per renal. GEORGE on CPAP - stable
--- NOTE | 2016-07-25 12:36 | PN ---
Progress Note, Physician Chief Complaint: Ms Mcdonnell says she does not know how she is doing today. Says she is not having cp, sob, n/v. Daughter at bedside notes she is having loose stool. - Current Medication List Current Medications: Active Medications Acetaminophen (Tylenol -) 650 mg PO Q4H PRN PRN Reason: FEVER OR PAIN Last Admin: 07/21/16 10:27 Dose: 650 mg Apixaban (Eliquis -) 2.5 mg PO BID [facility] Last Admin: 07/25/16 09:33 Dose: 2.5 mg Atorvastatin Calcium (Lipitor -) 10 mg PO HS [facility] Last Admin: 07/24/16 22:29 Dose: 10 mg Cholecalciferol (Vitamin D3 -) 1,000 unit PO DAILY [facility] Last Admin: 07/25/16 09:34 Dose: 1,000 unit Docusate Sodium (Colace -) 100 mg PO BID [facility] Last Admin: 07/25/16 09:33 Dose: Not Given Furosemide (Lasix -) 80 mg PO DAILY [facility] Last Admin: 07/25/16 09:34 Dose: 80 mg Ertapenem 0.5 gm/ Sodium (Chloride) 50 mls @ 50 mls/hr IVPB DAILY [facility] PRN Reason: Protocol Last Admin: 07/25/16 09:33 Dose: 50 mls/hr Insulin Aspart (Novolog Vial Sliding Scale -) 1 vial SQ ACHS [facility] PRN Reason: Protocol Last Admin: 07/25/16 12:03 Dose: 1 units Loratadine (Claritin -) 10 mg PO DAILY PRN PRN Reason: allergy Multivit/Ca Carb/B Cmplx/FA/Prenat (Nephro-Annie -) 1 tablet PO DAILY [facility] Last Admin: 07/25/16 09:33 Dose: 1 tablet Nystatin (Mycostatin Cream -) 1 applic TP BID [facility] Last Admin: 07/25/16 09:34 Dose: 1 applic Ondansetron HCl (Zofran Injection) 4 mg IVPB Q6H PRN PRN Reason: NAUSEA Oxycodone HCl (Roxicodone -) 10 mg PO Q4H PRN PRN Reason: PAIN Last Admin: 07/24/16 14:34 Dose: 10 mg Polyethylene Glycol (Miralax (For Daily Use) -) 17 gm PO BID [facility] Last Admin: 07/25/16 09:34 Dose: Not Given - Objective Vital Signs: Vital Signs Temperature 98.2 F 07/25/16 08:00 Pulse Rate 92 H 07/25/16 08:00 Respiratory Rate 20 07/25/16 08:00 Blood Pressure 124/76 07/25/16 08:00 O2 Sat by Pulse Oximetry (%) 100 07/25/16 08:00 Constitutional: Yes: No Distress, Calm, Obese Cardiovascular: Yes: Regular Rate and Rhythm. No: Gallop, Murmur, Rub Respiratory: Yes: Regular, CTA Bilaterally. No: Rales, Rhonchi, Wheezes Gastrointestinal: Yes: Normal Bowel Sounds, Soft. No: Distention, Tenderness Extremities: Yes: WNL Edema: Yes Edema: LLE: 2+, RLE: 2+ Labs: CBC, BMP 07/25/16 06:30 07/25/16 06:30 INR, PTT INR 1.18 (0.82-1.09) H 07/10/16 07:40 Problem List - Problems (1) Hip fracture Code(s): S72.009A - FRACTURE OF UNSP PART OF NECK OF UNSP FEMUR, INIT Qualifiers: Encounter type: initial encounter Fracture type: closed Laterality : right Qualified Code(s): S72.001A - Fracture of unspecified part of neck of right femur, initial encounter for closed fracture (2) (HFpEF) heart failure with preserved ejection fraction Code(s): I50.9 - HEART FAILURE, UNSPECIFIED (3) Bilateral leg edema Code(s): R60.0 - LOCALIZED EDEMA (4) Diabetes Code(s): E11.9 - TYPE 2 DIABETES MELLITUS WITHOUT COMPLICATIONS (5) HTN (hypertension) Code(s): I10 - ESSENTIAL (PRIMARY) HYPERTENSION (6) Hyperkalemia Code(s): E87.5 - HYPERKALEMIA (7) End stage renal failure on dialysis Code(s): N18.6 - END STAGE RENAL DISEASE Z99.2 - DEPENDENCE ON RENAL DIALYSIS (8) Obesity Code(s): E66.9 - OBESITY, UNSPECIFIED Qualifiers: Obesity severity: morbid (9) Anemia Code(s): D64.9 - ANEMIA, UNSPECIFIED (10) Hyponatremia Code(s): E87.1 - HYPO-OSMOLALITY AND HYPONATREMIA (11) UTI (urinary tract infection) Code(s): N39.0 - URINARY TRACT INFECTION, SITE NOT SPECIFIED Assessment/Plan (1) Hip fracture Assessment/Plan: -pain controlled -continue oxycodone -SNF placement when medically stable Code(s): S72.009A - FRACTURE OF UNSP PART OF NECK OF UNSP FEMUR, INIT Qualifiers: Encounter type: initial encounter Fracture type: closed Laterality : right Qualified Code(s): S72.001A - Fracture of unspecified part of neck of right femur, initial encounter for closed fracture (2) (HFpEF) heart failure with preserved ejection fraction Assessment/Plan: -continue lasix -leg edema unchanged Code(s): I50.9 - HEART FAILURE, UNSPECIFIED (3) Bilateral leg edema Assessment/Plan: -stable Code(s): R60.0 - LOCALIZED EDEMA (4) Diabetes Assessment/Plan: -diabetic/renal diet Code(s): E11.9 - TYPE 2 DIABETES MELLITUS WITHOUT COMPLICATIONS (5) HTN (hypertension) Assessment/Plan: -well controlled -continue lasix Code(s): I10 - ESSENTIAL (PRIMARY) HYPERTENSION (6) Hyperkalemia Assessment/Plan: -resolved with HD Code(s): E87.5 - HYPERKALEMIA (7) End stage renal failure on dialysis Assessment/Plan: -continue HD per nephrology Code(s): N18.6 - END STAGE RENAL DISEASE Z99.2 - DEPENDENCE ON RENAL DIALYSIS (8) Obesity Code(s): E66.9 - OBESITY, UNSPECIFIED Qualifiers: Obesity severity: morbid (9) Hyponatremia -much improved with fluid restriction (10) Sepsis -patient with bacteremia and UTI -UTI is now growing VRE -ertapenem started for ESBL e. coli in blood -defer to ID about treatment of VRE in urine (11) Anemia -secondary to renal function -continue epo per nephrology (12) Severe constipation -now with loose stools -stop lactulose
--- NOTE | 2016-07-25 13:01 | PN ---
Progress Note (short form) - Note Progress Note: Renal Follow up for ESRD on HD Pt seen and examined at the bedside no acute complaints daughter reports poor oral intake of solids having softer stools ? diarrhea denies any pain or sob Vital Signs Temperature 98.2 F 07/25/16 08:00 Pulse Rate 92 H 07/25/16 08:00 Respiratory Rate 20 07/25/16 08:00 Blood Pressure 124/76 07/25/16 08:00 O2 Sat by Pulse Oximetry (%) 100 07/25/16 08:00 Intake & Output 07/22/16 07/23/16 07/24/16 07/25/16 23:59 23:59 23:59 23:59 Intake Total 300 770 270 450 Balance 300 770 270 450 Weight 207 lb 3 oz 207 lb 3 oz 207 lb 206 lb 9 oz Gen: NAD, awake and alert CVS: irregular, no M/R Lungs: Dec BS Lung bases, no rales Abd: soft NT/ND Ext: Trace to 1+ edema in LE Access: Left ARM AVF CBC, BMP 07/25/16 06:30 07/25/16 06:30 Current Medications Acetaminophen (Tylenol -) 650 mg PO Q4H PRN PRN Reason: FEVER OR PAIN Last Admin: 07/21/16 10:27 Dose: 650 mg Apixaban (Eliquis -) 2.5 mg PO BID [facility] Last Admin: 07/25/16 09:33 Dose: 2.5 mg Atorvastatin Calcium (Lipitor -) 10 mg PO HS [facility] Last Admin: 07/24/16 22:29 Dose: 10 mg Cholecalciferol (Vitamin D3 -) 1,000 unit PO DAILY [facility] Last Admin: 07/25/16 09:34 Dose: 1,000 unit Docusate Sodium (Colace -) 100 mg PO BID [facility] Last Admin: 07/25/16 09:33 Dose: Not Given Furosemide (Lasix -) 80 mg PO DAILY [facility] Last Admin: 07/25/16 09:34 Dose: 80 mg Ertapenem 0.5 gm/ Sodium (Chloride) 50 mls @ 50 mls/hr IVPB DAILY [facility] PRN Reason: Protocol Last Admin: 07/25/16 09:33 Dose: 50 mls/hr Insulin Aspart (Novolog Vial Sliding Scale -) 1 vial SQ ACHS [facility] PRN Reason: Protocol Last Admin: 07/25/16 12:03 Dose: 1 units Loratadine (Claritin -) 10 mg PO DAILY PRN PRN Reason: allergy Multivit/Ca Carb/B Cmplx/FA/Prenat (Nephro-Annie -) 1 tablet PO DAILY [facility] Last Admin: 07/25/16 09:33 Dose: 1 tablet Nystatin (Mycostatin Cream -) 1 applic TP BID [facility] Last Admin: 07/25/16 09:34 Dose: 1 applic Ondansetron HCl (Zofran Injection) 4 mg IVPB Q6H PRN PRN Reason: NAUSEA Oxycodone HCl (Roxicodone -) 10 mg PO Q4H PRN PRN Reason: PAIN Last Admin: 07/24/16 14:34 Dose: 10 mg Polyethylene Glycol (Miralax (For Daily Use) -) 17 gm PO BID [facility] Last Admin: 07/25/16 09:34 Dose: Not Given A/P 85 year old woman with PMhx of ESRD on HD (MWF), Afib on A/C, HTN, CAD s/p stents, CHF, DM who presented s/p fall with multiple fractures. #ESRD on HD No indication for dialysis today Next treatment in the AM #Fever/Gram Negative Bacteria ? urinary source -> intially grew E.Coli in urine but did get Abx on presentation Continue Ertapenum repeat cultures drawn yesterday w/o growth so far #Hyponatremia From excess fluid intake 1L fluid restriction daily pt is not compliant with fluid restriction #Intertrochanteric hip fx/Humerus Fracture s/p Gamma Nail Arm in immobilizer Pain control #CKD Related Anemia trend CBC Goal Hgb > 10 ARI with dialysis Massimo Melissa DO
[2016-07-25 14:41] LABS: PLATELET ESTIMATE ADEQUATE (NORMAL)
[2016-07-25] MEDS: oxyCODONE HCL 5 MG TABLET PO PRN (19:36)
[2016-07-25] MEDS: ACETAMINOPHEN 325 MG TABLET (FP) PO PRN (19:37)
[2016-07-25] MEDS: ATORVASTATIN CA 10 MG TABLET (FP) PO SCH (21:07)
[2016-07-26] MEDS: INSULIN SLIDING SCALE (NOVOLOG) 1 VIAL SQ SCH ×4 (06:11→21:24)
[2016-07-26] MEDS ORDERED: PT OWN MED DRAWER 7, Y5N ONE ×3 (06:15→21:13)
[2016-07-26 08:26] LABS: MCH 33.6 pg (25.7-33.7); MCHC 32.5 g/dl (32.0-36.0); MEAN CELL VOLUME 103.5 fl (80-96); MEAN PLT VOLUME 8.4 fl (7.5-11.1); PLATELET COUNT 366 K/MM3 (134-434); RDW 14.9 % (11.6-15.6); WHITE BLOOD COUNT 13.5 K/mm3 (4.0-10.0)
[2016-07-26 08:52] LABS: CREATININE 3.2 mg/dL (0.55-1.02); MAGNESIUM 1.8 mg/dL (1.8-2.4); PHOSPHOROUS 2.9 mg/dL (2.5-4.9)
[2016-07-26] MEDS: APIXABAN 2.5 MG TABLET PO SCH ×2 (09:22→21:18)
[2016-07-26] MEDS: FUROSEMIDE 40 MG TABLET (FP) PO SCH (09:22)
[2016-07-26] MEDS: DOCUSATE SODIUM 100 MG CAPSULE (FP) PO SCH ×2 (09:22→21:18)
[2016-07-26] MEDS: CHOLECALCIFEROL (VITAMIN D3) 1,000 UNIT TABLET (FP) PO SCH (09:23)
[2016-07-26] MEDS: NYSTATIN 100,000 UNIT/GM TOPICAL CREAM 15 GM TUBE TP SCH ×2 (09:23→21:19)
[2016-07-26] MEDS: VITAMIN B COMP W-C 1 EA TABLET PO SCH (09:23)
[2016-07-26] MEDS: POLYETHYLENE GLYCOL 3350 119 GM BTL PO SCH ×2 (09:23→21:19)
[2016-07-26] MEDS ORDERED: ALBUTEROL SO4 0.083% IH SOL 2.5 MG/3 ML VIAL.NEB. NEB ONE (09:38)
[2016-07-26] MEDS: ALBUTEROL SO4 2.5/IPRATROPIUM 0.5 INH SOL 3 ML VIAL.NEB. NEB PRN (09:50)
[2016-07-26] MEDS: ERTAPENEM SODIUM 0.5 GM in SODIUM CHLORIDE 50 ML IVPB SCH ×2 (10:46→15:30)
[2016-07-26] MEDS ORDERED: EPOETIN ALFA 20,000 UNIT/1 ML VIAL IVPUSH ONE (12:00)
[2016-07-26 12:52] LABS: PLATELET ESTIMATE ADEQUATE (NORMAL)
--- NOTE | 2016-07-26 12:53 | PN ---
Progress Note (short form) - Note Progress Note: Renal Follow up for ESRD on HD Pt seen and examined during dialysis BP 120/70's, access with good function Goal UF is 3L pt complains of being cold, Hgb is 7.9 No chest pain + sob Vital Signs Temperature 98.0 F 07/26/16 10:25 Pulse Rate 61 07/26/16 11:30 Respiratory Rate 18 07/26/16 11:30 Blood Pressure 131/59 07/26/16 11:30 O2 Sat by Pulse Oximetry (%) 96 07/26/16 08:00 Intake & Output 07/23/16 07/24/16 07/25/16 07/26/16 23:59 23:59 23:59 23:59 Intake Total 770 270 900 Balance 770 270 900 Weight 207 lb 3 oz 207 lb 206 lb 9 oz 205 lb 1.6 oz Gen: NAD, awake and alert CVS: irregular, no M/R Lungs: Dec BS Lung bases, no rales Abd: soft NT/ND Ext: Trace to 1+ edema in LE Access: Left ARM AVF CBC, BMP 07/26/16 07:00 07/26/16 07:00 Current Medications Acetaminophen (Tylenol -) 650 mg PO Q4H PRN PRN Reason: FEVER OR PAIN Last Admin: 07/25/16 19:37 Dose: 650 mg Albuterol/Ipratropium (Duoneb -) 1 amp NEB Q6H PRN PRN Reason: SHORTNESS OF BREATH Apixaban (Eliquis -) 2.5 mg PO BID [facility] Last Admin: 07/26/16 09:22 Dose: 2.5 mg Atorvastatin Calcium (Lipitor -) 10 mg PO HS [facility] Last Admin: 07/25/16 21:07 Dose: 10 mg Cholecalciferol (Vitamin D3 -) 1,000 unit PO DAILY [facility] Last Admin: 07/26/16 09:23 Dose: 1,000 unit Docusate Sodium (Colace -) 100 mg PO BID [facility] Last Admin: 07/26/16 09:22 Dose: 100 mg Furosemide (Lasix -) 80 mg PO DAILY [facility] Last Admin: 07/26/16 09:22 Dose: 80 mg Ertapenem 0.5 gm/ Sodium (Chloride) 50 mls @ 50 mls/hr IVPB DAILY [facility] PRN Reason: Protocol Last Admin: 07/26/16 10:46 Dose: Not Given Insulin Aspart (Novolog Vial Sliding Scale -) 1 vial SQ ACHS [facility]REW PRN Reason: Protocol Last Admin: 07/26/16 10:46 Dose: Not Given Loratadine (Claritin -) 10 mg PO DAILY PRN PRN Reason: allergy Multivit/Ca Carb/B Cmplx/FA/Prenat (Nephro-Annie -) 1 tablet PO DAILY [facility] Last Admin: 07/26/16 09:23 Dose: 1 tablet Nystatin (Mycostatin Cream -) 1 applic TP BID [facility] Last Admin: 07/26/16 09:23 Dose: 1 applic Ondansetron HCl (Zofran Injection) 4 mg IVPB Q6H PRN PRN Reason: NAUSEA Oxycodone HCl (Roxicodone -) 10 mg PO Q4H PRN PRN Reason: PAIN Last Admin: 07/25/16 19:36 Dose: 10 mg Polyethylene Glycol (Miralax (For Daily Use) -) 17 gm PO BID [facility] Last Admin: 07/26/16 09:23 Dose: 17 gm A/P 85 year old woman with PMhx of ESRD on HD (MWF), Afib on A/C, HTN, CAD s/p stents, CHF, DM who presented s/p fall with multiple fractures. #ESRD on HD tolerating dialysis well today #Fever/Gram Negative Bacteria ? urinary source -> initially grew E.Coli in urine but did get Abx on presentation Continue Ertapenum repeat cultures d/o growth so far #Hyponatremia/Fluid overlaod From excess fluid intake 1L fluid restriction daily UF 3L today with HD #Intertrochanteric hip fx/Humerus Fracture s/p Gamma Nail Arm in immobilizer Pain control #CKD Related Anemia will transfuse 2 unit prbc with HD today continue Epogen Massimo Melissa DO
--- NOTE | 2016-07-26 14:20 | PN ---
Progress Note, Physician Chief Complaint: Ms Mcdonnell says she feels weak and tired today. No cp, sob, n/v. - Current Medication List Current Medications: Active Medications Acetaminophen (Tylenol -) 650 mg PO Q4H PRN PRN Reason: FEVER OR PAIN Last Admin: 07/25/16 19:37 Dose: 650 mg Albuterol/Ipratropium (Duoneb -) 1 amp NEB Q6H PRN PRN Reason: SHORTNESS OF BREATH Last Admin: 07/26/16 09:50 Dose: 1 amp Apixaban (Eliquis -) 2.5 mg PO BID [facility] Last Admin: 07/26/16 09:22 Dose: 2.5 mg Atorvastatin Calcium (Lipitor -) 10 mg PO HS [facility] Last Admin: 07/25/16 21:07 Dose: 10 mg Cholecalciferol (Vitamin D3 -) 1,000 unit PO DAILY [facility] Last Admin: 07/26/16 09:23 Dose: 1,000 unit Docusate Sodium (Colace -) 100 mg PO BID [facility] Last Admin: 07/26/16 09:22 Dose: 100 mg Furosemide (Lasix -) 80 mg PO DAILY [facility] Last Admin: 07/26/16 09:22 Dose: 80 mg Ertapenem 0.5 gm/ Sodium (Chloride) 50 mls @ 50 mls/hr IVPB DAILY [facility] PRN Reason: Protocol Last Admin: 07/26/16 10:46 Dose: Not Given Insulin Aspart (Novolog Vial Sliding Scale -) 1 vial SQ ACHS [facility] PRN Reason: Protocol Last Admin: 07/26/16 10:46 Dose: Not Given Loratadine (Claritin -) 10 mg PO DAILY PRN PRN Reason: allergy Multivit/Ca Carb/B Cmplx/FA/Prenat (Nephro-Annie -) 1 tablet PO DAILY [facility] Last Admin: 07/26/16 09:23 Dose: 1 tablet Nystatin (Mycostatin Cream -) 1 applic TP BID [facility] Last Admin: 07/26/16 09:23 Dose: 1 applic Ondansetron HCl (Zofran Injection) 4 mg IVPB Q6H PRN PRN Reason: NAUSEA Oxycodone HCl (Roxicodone -) 10 mg PO Q4H PRN PRN Reason: PAIN Last Admin: 07/25/16 19:36 Dose: 10 mg Polyethylene Glycol (Miralax (For Daily Use) -) 17 gm PO BID [facility] Last Admin: 07/26/16 09:23 Dose: 17 gm - Objective Vital Signs: Vital Signs Temperature 98.0 F 07/26/16 10:25 Pulse Rate 61 07/26/16 11:30 Respiratory Rate 18 07/26/16 11:30 Blood Pressure 131/59 07/26/16 11:30 O2 Sat by Pulse Oximetry (%) 96 07/26/16 08:00 Constitutional: Yes: No Distress, Calm, Obese Cardiovascular: Yes: Regular Rate and Rhythm. No: Gallop, Murmur, Rub Respiratory: Yes: Regular, CTA Bilaterally. No: Rales, Rhonchi, Wheezes Gastrointestinal: Yes: Normal Bowel Sounds, Distention. No: Soft, Tenderness Extremities: Yes: WNL Edema: Yes Edema: LLE: 2+, RLE: 2+ Labs: CBC, BMP 07/26/16 07:00 07/26/16 07:00 INR, PTT INR 1.18 (0.82-1.09) H 07/10/16 07:40 Problem List - Problems (1) Hip fracture Code(s): S72.009A - FRACTURE OF UNSP PART OF NECK OF UNSP FEMUR, INIT Qualifiers: Encounter type: initial encounter Fracture type: closed Laterality : right Qualified Code(s): S72.001A - Fracture of unspecified part of neck of right femur, initial encounter for closed fracture (2) (HFpEF) heart failure with preserved ejection fraction Code(s): I50.9 - HEART FAILURE, UNSPECIFIED (3) Bilateral leg edema Code(s): R60.0 - LOCALIZED EDEMA (4) Diabetes Code(s): E11.9 - TYPE 2 DIABETES MELLITUS WITHOUT COMPLICATIONS (5) HTN (hypertension) Code(s): I10 - ESSENTIAL (PRIMARY) HYPERTENSION (6) Hyperkalemia Code(s): E87.5 - HYPERKALEMIA (7) End stage renal failure on dialysis Code(s): N18.6 - END STAGE RENAL DISEASE Z99.2 - DEPENDENCE ON RENAL DIALYSIS (8) Obesity Code(s): E66.9 - OBESITY, UNSPECIFIED Qualifiers: Obesity severity: morbid (9) Anemia Code(s): D64.9 - ANEMIA, UNSPECIFIED (10) Hyponatremia Code(s): E87.1 - HYPO-OSMOLALITY AND HYPONATREMIA (11) UTI (urinary tract infection) Code(s): N39.0 - URINARY TRACT INFECTION, SITE NOT SPECIFIED Assessment/Plan (1) Hip fracture Assessment/Plan: -pain controlled -continue oxycodone -SNF placement when medically stable Code(s): S72.009A - FRACTURE OF UNSP PART OF NECK OF UNSP FEMUR, INIT Qualifiers: Encounter type: initial encounter Fracture type: closed Laterality : right Qualified Code(s): S72.001A - Fracture of unspecified part of neck of right femur, initial encounter for closed fracture (2) (HFpEF) heart failure with preserved ejection fraction Assessment/Plan: -continue lasix -leg edema unchanged Code(s): I50.9 - HEART FAILURE, UNSPECIFIED (3) Bilateral leg edema Assessment/Plan: -stable Code(s): R60.0 - LOCALIZED EDEMA (4) Diabetes Assessment/Plan: -diabetic/renal diet Code(s): E11.9 - TYPE 2 DIABETES MELLITUS WITHOUT COMPLICATIONS (5) HTN (hypertension) Assessment/Plan: -well controlled -continue lasix Code(s): I10 - ESSENTIAL (PRIMARY) HYPERTENSION (6) Hyperkalemia Assessment/Plan: -resolved with HD Code(s): E87.5 - HYPERKALEMIA (7) End stage renal failure on dialysis Assessment/Plan: -continue HD per nephrology Code(s): N18.6 - END STAGE RENAL DISEASE Z99.2 - DEPENDENCE ON RENAL DIALYSIS (8) Obesity Code(s): E66.9 - OBESITY, UNSPECIFIED Qualifiers: Obesity severity: morbid (9) Hyponatremia -much improved with fluid restriction (10) Sepsis -patient with bacteremia and UTI -UTI is now growing VRE -ertapenem started for ESBL e. coli in blood -spoke with ID about UTI, will follow up (11) Anemia -secondary to renal function -continue epo per nephrology (12) Severe constipation -resolved -continue current management
--- NOTE | 2016-07-26 15:28 | PN ---
Progress Note (short form) - Note Progress Note: s/p HD today no complaints Vital Signs Period Temp Pulse Resp BP Sys/Adams Pulse Ox Last 24 Hr 97.8 F-98.4 F 35-98 18-20 118-152/39-86 96-100 cor-rrr lungs clear abd soft,nt ext +serous drainage from RUE and right leg hip incision intact ++edema CBC, BMP 07/26/16 07:00 07/26/16 07:00 Microbiology 07/24/16 09:00 Blood - Pre-Dialysis Blood Culture - Preliminary NO GROWTH OBTAINED AFTER 48 HOURS, INCUBATION TO CONTINUE FOR 3 DAYS. 07/24/16 09:00 Blood - Pre-Dialysis Blood Culture - Preliminary NO GROWTH OBTAINED AFTER 48 HOURS, INCUBATION TO CONTINUE FOR 3 DAYS. 07/22/16 16:30 Urine - Urine - Catheterized Urine Culture - Final Vr Ec Faecium 07/21/16 12:30 Blood - Peripheral Venous Blood Culture - Final Escherichia Coli Esbl Assembly Worker 07/22/16 11:27 Blood - Post-Dialysis Blood Culture - Final Escherichia Coli Esbl Assembly Worker 07/21/16 12:20 Blood - Peripheral Venous Blood Culture - Final Escherichia Coli Esbl Assembly Worker 07/17/16 12:15 Blood - Peripheral Venous Blood Culture - Final NO GROWTH AFTER 5 DAYS INCUBATION 07/17/16 12:15 Blood - Peripheral Venous Blood Culture - Final NO GROWTH AFTER 5 DAYS INCUBATION 07/16/16 15:00 Hip - Right Gram Stain - Final 07/16/16 15:00 Hip - Right Wound Culture - Final Staphylococcus Haemolyticus 07/10/16 07:00 Urine - Urine Cooper Urine Culture - Final Escherichia Coli a/p ecoli esbl bacteremia hip incision no signs of purulence contact isolation ertapenem daily ?source- consider ct scan abd/pelvis-with contrast before next HD urine culture vre- no need to treat at this time s/p fall with hip and humerus fracture s/p gamma nail 2/1 esrd/hd diabetes obesity overall prognosis is poor family aware of need for isolation d/w Dr Lozoya
[2016-07-26] MEDS ORDERED: INSULIN (NOVOLOG) ASPART 100 UNITS/ML 10ML VIAL ONE ×2 (15:34→21:22)
[2016-07-26] MEDS: oxyCODONE HCL 5 MG TABLET PO PRN ×2 (17:54→23:09)
[2016-07-26] MEDS: ACETAMINOPHEN 325 MG TABLET (FP) PO PRN ×2 (17:56→23:10)
[2016-07-26] MEDS: ATORVASTATIN CA 10 MG TABLET (FP) PO SCH (21:18)
[2016-07-27] MEDS: INSULIN SLIDING SCALE (NOVOLOG) 1 VIAL SQ SCH ×4 (06:15→21:50)
[2016-07-27] MEDS: ALBUTEROL SO4 2.5/IPRATROPIUM 0.5 INH SOL 3 ML VIAL.NEB. NEB PRN ×2 (06:30→19:00)
[2016-07-27 08:22] LABS: MCH 32.7 pg (25.7-33.7); MCHC 32.9 g/dl (32.0-36.0); MEAN CELL VOLUME 99.5 fl (80-96); MEAN PLT VOLUME 8.3 fl (7.5-11.1); PLATELET COUNT 344 K/MM3 (134-434); RDW 18.8 % (11.6-15.6); WHITE BLOOD COUNT 14.9 K/mm3 (4.0-10.0)
[2016-07-27 08:42] LABS: CALCIUM 8.1 mg/dL (8.5-10.1); CREATININE 2.2 mg/dL (0.55-1.02)
[2016-07-27] MEDS ORDERED: PT OWN MED DRAWER 7, Y5N ONE (09:40)
[2016-07-27] MEDS: FUROSEMIDE 40 MG TABLET (FP) PO SCH (10:01)
[2016-07-27] MEDS: APIXABAN 2.5 MG TABLET PO SCH ×2 (10:01→21:35)
[2016-07-27] MEDS: VITAMIN B COMP W-C 1 EA TABLET PO SCH (10:01)
[2016-07-27] MEDS: POLYETHYLENE GLYCOL 3350 119 GM BTL PO SCH ×2 (10:01→21:36)
[2016-07-27] MEDS: DOCUSATE SODIUM 100 MG CAPSULE (FP) PO SCH ×2 (10:01→21:34)
[2016-07-27] MEDS: ERTAPENEM SODIUM 0.5 GM in SODIUM CHLORIDE 50 ML IVPB SCH (10:01)
[2016-07-27] MEDS: CHOLECALCIFEROL (VITAMIN D3) 1,000 UNIT TABLET (FP) PO SCH (10:01)
[2016-07-27] MEDS: NYSTATIN 100,000 UNIT/GM TOPICAL CREAM 15 GM TUBE TP SCH ×2 (10:02→21:37)
[2016-07-27 11:00] LABS: PLATELET ESTIMATE ADEQUATE (NORMAL); SMUDGE CELLS FEW
[2016-07-27 11:01] LABS: ANISOCYTOSIS 2+; FRAGMENTED CELL 1+; HYPOCHROMIA 2+; MICROCYTOSIS 1+; PLATELET COMMENT2 NO CLOTTING DETECTED; PLATELET COMMENT3 FEW GIANT PLTS; POIKILOCYTOSIS 2+; POLYCHROMASIA 2+
--- NOTE | 2016-07-27 11:55 | PN ---
Progress Note (short form) - Note Progress Note: s: no cp sob palps dizzy o: Vital Signs Period Temp Pulse Resp BP Sys/Adams Pulse Ox Last 24 Hr 97.4 F-98.1 F 35-99 18-20 115-152/39-95 96-98 NAD. calm JVD difficult to assess due to neck habitus, but does not appear elevated RRR nl S1 S2. No S3, S4 or mrg cta bl, nl effort + BS, soft, obese, ND, NT Venous stasis changes with trace LE edema No jaundice, no diaphoresis. aaox3 Current Medications Generic Name Dose Route Start Last Admin Trade Name Freq PRN Reason Stop Dose Admin Acetaminophen 650 mg 07/10/16 16:54 07/26/16 23:10 Tylenol - PO 650 mg Q4H PRN Administration FEVER OR PAIN Albuterol/Ipratropium 1 amp 07/26/16 09:31 07/27/16 06:30 Duoneb - NEB 1 amp Q6H PRN Administration SHORTNESS OF BREATH Apixaban 2.5 mg 07/19/16 22:00 07/27/16 10:01 Eliquis - PO 2.5 mg BID [facility] Administration Atorvastatin Calcium 10 mg 07/10/16 22:00 07/26/16 21:18 Lipitor - PO 10 mg HS [facility] Administration Cholecalciferol 1,000 unit 07/12/16 17:00 07/27/16 10:01 Vitamin D3 - PO 1,000 unit DAILY [facility] Administration Docusate Sodium 100 mg 07/10/16 22:00 07/27/16 10:01 Colace - PO 100 mg BID [facility] Administration Furosemide 80 mg 07/12/16 17:00 07/27/16 10:01 Lasix - PO 80 mg DAILY [facility] Administration Ertapenem 0.5 gm/ Sodium 50 mls @ 50 mls/hr 07/23/16 13:00 07/27/16 10:01 Chloride IVPB 50 mls/hr DAILY [facility] Administration Protocol Insulin Aspart 1 vial 07/10/16 22:00 07/27/16 11:10 Novolog Vial Sliding Scale - SQ 1 units ACHS [facility] Administration Protocol Loratadine 10 mg 07/10/16 16:54 Claritin - PO DAILY PRN allergy Multivit/Ca Carb/B Cmplx/FA/Prenat 1 tablet 07/24/16 10:00 07/27/16 10:01 Nephro-Annie - PO 1 tablet DAILY [facility] Administration Nystatin 1 applic 07/24/16 22:00 07/27/16 10:02 Mycostatin Cream - TP 1 applic BID [facility] Administration Ondansetron HCl 4 mg 07/10/16 16:54 Zofran Injection IVPB Q6H PRN NAUSEA Oxycodone HCl 10 mg 07/16/16 14:37 07/26/16 23:09 Roxicodone - PO 10 mg Q4H PRN Administration PAIN Polyethylene Glycol 17 gm 07/18/16 10:00 07/27/16 10:01 Miralax (For Daily Use) - PO 17 gm BID [facility] Administration CBC, BMP 07/27/16 07:30 07/27/16 07:30 EKG: afib 115 bpm. LAD. LAFB. incomplete RBBB. poor r wave progression. echo 08/2015: nl lv/rv. mild lae. valves wnl. no rvsp. A/p: 85 yo with CAD s/p AZUL to RCA '14, Afib on eliquis, dCHF, HTN, HL, IDDM, GEORGE declines CPAP and CKD on HD who presents s/p fall c/b hip fracture. CAD s/p AZUL to RCA in 03/2014 - on statin. not on ASA b/c of hi risk gib and on AC. - remains stable, no anginal symptoms, nl lvef Afib - off AV alexandr blockade due to prior bradycardia (AT/AFL with slow conduction). - rate here is overall controlled - cont eliquis (details of decision in prior notes) chronic HFPEF, chronic venous insuff: - stable, no signif volume excess (chronic LE edema is stable) - volume mgm't with HD per renal. HTN - stable off meds here ESRD on HD/hyperkalemia/hyponatremia - volume mgm't with HD and po lasix per renal. GEORGE on CPAP - stable uti: -on abx
--- NOTE | 2016-07-27 12:32 | PN ---
Progress Note, Physician History of Present Illness: Still with pain in hip. Feeling a little short of breath today (did have blood transfusion with dialysis yesterday). - Current Medication List Current Medications: Active Medications Acetaminophen (Tylenol -) 650 mg PO Q4H PRN PRN Reason: FEVER OR PAIN Last Admin: 07/26/16 23:10 Dose: 650 mg Albuterol/Ipratropium (Duoneb -) 1 amp NEB Q6H PRN PRN Reason: SHORTNESS OF BREATH Last Admin: 07/27/16 06:30 Dose: 1 amp Apixaban (Eliquis -) 2.5 mg PO BID [facility] Last Admin: 07/27/16 10:01 Dose: 2.5 mg Atorvastatin Calcium (Lipitor -) 10 mg PO HS [facility] Last Admin: 07/26/16 21:18 Dose: 10 mg Cholecalciferol (Vitamin D3 -) 1,000 unit PO DAILY [facility] Last Admin: 07/27/16 10:01 Dose: 1,000 unit Docusate Sodium (Colace -) 100 mg PO BID [facility] Last Admin: 07/27/16 10:01 Dose: 100 mg Furosemide (Lasix -) 80 mg PO DAILY [facility] Last Admin: 07/27/16 10:01 Dose: 80 mg Ertapenem 0.5 gm/ Sodium (Chloride) 50 mls @ 50 mls/hr IVPB DAILY [facility] PRN Reason: Protocol Last Admin: 07/27/16 10:01 Dose: 50 mls/hr Insulin Aspart (Novolog Vial Sliding Scale -) 1 vial SQ ACHS [facility] PRN Reason: Protocol Last Admin: 07/27/16 11:10 Dose: 1 units Loratadine (Claritin -) 10 mg PO DAILY PRN PRN Reason: allergy Multivit/Ca Carb/B Cmplx/FA/Prenat (Nephro-Annie -) 1 tablet PO DAILY [facility] Last Admin: 07/27/16 10:01 Dose: 1 tablet Nystatin (Mycostatin Cream -) 1 applic TP BID [facility] Last Admin: 07/27/16 10:02 Dose: 1 applic Ondansetron HCl (Zofran Injection) 4 mg IVPB Q6H PRN PRN Reason: NAUSEA Oxycodone HCl (Roxicodone -) 10 mg PO Q4H PRN PRN Reason: PAIN Last Admin: 07/26/16 23:09 Dose: 10 mg Polyethylene Glycol (Miralax (For Daily Use) -) 17 gm PO BID [facility] Last Admin: 07/27/16 10:01 Dose: 17 gm - Objective Vital Signs: Vital Signs Temperature 97.7 F 07/27/16 10:00 Pulse Rate 99 H 07/27/16 10:00 Respiratory Rate 18 07/27/16 10:00 Blood Pressure 115/46 07/27/16 10:00 O2 Sat by Pulse Oximetry (%) 98 07/27/16 09:00 Constitutional: Yes: No Distress, Calm Neck: Yes: Supple, Trachea Midline Cardiovascular: Yes: Pulse Irregular, S1, S2 Respiratory: Yes: Regular, Diminished (bilateral lungs) Gastrointestinal: Yes: Normal Bowel Sounds, Soft. No: Distention, Tenderness Extremities: Yes: Other (chronic lymphedema changes b/l legs) Edema: Yes Edema: LLE: 2+, RLE: 2+ Neurological: Yes: Alert, Oriented Labs: CBC, BMP 07/27/16 07:30 07/27/16 07:30 INR, PTT INR 1.18 (0.82-1.09) H 07/10/16 07:40 Assessment/Plan Current Active Problems Constipation due to opioid therapy (Acute) Hip fracture (Acute) s/p ORIF UTI (urinary tract infection) (Acute) DM Afib ESRD on dialysis HTN Anemia Sepsis -cont abx (renally dosed) -getting HD M/W/F -has not been sanding s/p surgery for ORIF yet (will need lengthy STR to become ambulatory again)
--- NOTE | 2016-07-27 12:47 | PN ---
Progress Note (short form) - Note Progress Note: Renal Follow up for ESRD on HD Pt seen and examined at the bedside has mild dyspnea no chest pain or cough s/p dialysis yesterday with 3L UF Vital Signs Temperature 97.7 F 07/27/16 10:00 Pulse Rate 99 H 07/27/16 10:00 Respiratory Rate 18 07/27/16 10:00 Blood Pressure 115/46 07/27/16 10:00 O2 Sat by Pulse Oximetry (%) 98 07/27/16 09:00 Intake & Output 07/24/16 07/25/16 07/26/16 07/27/16 23:59 23:59 23:59 23:59 Intake Total 270 900 650 Balance 270 900 650 Weight 207 lb 206 lb 9 oz 205 lb 1.6 oz 204 lb 4 oz Gen: NAD, awake and alert CVS: irregular, no M/R Lungs: Dec BS Lung bases, no rales Abd: soft NT/ND Ext: Trace to 1+ edema in LE Access: Left ARM AVF CBC, BMP 07/27/16 07:30 07/27/16 07:30 Laboratory Tests 07/27/16 07:30 Calcium 8.1 L Current Medications Acetaminophen (Tylenol -) 650 mg PO Q4H PRN PRN Reason: FEVER OR PAIN Last Admin: 07/26/16 23:10 Dose: 650 mg Albuterol/Ipratropium (Duoneb -) 1 amp NEB Q6H PRN PRN Reason: SHORTNESS OF BREATH Last Admin: 07/27/16 06:30 Dose: 1 amp Apixaban (Eliquis -) 2.5 mg PO BID [facility] Last Admin: 07/27/16 10:01 Dose: 2.5 mg Atorvastatin Calcium (Lipitor -) 10 mg PO HS [facility] Last Admin: 07/26/16 21:18 Dose: 10 mg Cholecalciferol (Vitamin D3 -) 1,000 unit PO DAILY [facility] Last Admin: 07/27/16 10:01 Dose: 1,000 unit Docusate Sodium (Colace -) 100 mg PO BID [facility] Last Admin: 07/27/16 10:01 Dose: 100 mg Furosemide (Lasix -) 80 mg PO DAILY [facility] Last Admin: 07/27/16 10:01 Dose: 80 mg Ertapenem 0.5 gm/ Sodium (Chloride) 50 mls @ 50 mls/hr IVPB DAILY [facility] PRN Reason: Protocol Last Admin: 07/27/16 10:01 Dose: 50 mls/hr Insulin Aspart (Novolog Vial Sliding Scale -) 1 vial SQ ACHS [facility] PRN Reason: Protocol Last Admin: 07/27/16 11:10 Dose: 1 units Loratadine (Claritin -) 10 mg PO DAILY PRN PRN Reason: allergy Multivit/Ca Carb/B Cmplx/FA/Prenat (Nephro-Annie -) 1 tablet PO DAILY [facility] Last Admin: 07/27/16 10:01 Dose: 1 tablet Nystatin (Mycostatin Cream -) 1 applic TP BID [facility] Last Admin: 07/27/16 10:02 Dose: 1 applic Ondansetron HCl (Zofran Injection) 4 mg IVPB Q6H PRN PRN Reason: NAUSEA Oxycodone HCl (Roxicodone -) 10 mg PO Q4H PRN PRN Reason: PAIN Last Admin: 07/26/16 23:09 Dose: 10 mg Polyethylene Glycol (Miralax (For Daily Use) -) 17 gm PO BID [facility] Last Admin: 07/27/16 10:01 Dose: 17 gm A/P 85 year old woman with PMhx of ESRD on HD (MWF), Afib on A/C, HTN, CAD s/p stents, CHF, DM who presented s/p fall with multiple fractures. #ESRD on HD/Fluid overload s/p dialysis yesterday will plan for isolated UF today for volume management #Fever/Gram Negative Bacteria ? urinary source -> initially grew E.Coli in urine but did get Abx on presentation Continue Ertapenum repeat cultures d/o growth so far CT of the Abd on Friday as per ID #Hyponatremia/Fluid overload Fluid restriction isolated UF today #Intertrochanteric hip fx/Humerus Fracture s/p Gamma Nail Arm in immobilizer Pain control #CKD Related Anemia Hgb with good responses/p transfusion continue ARI with HD Massimo Melissa DO
--- NOTE | 2016-07-27 13:03 | PN ---
Progress Note (short form) - Note Progress Note: Ortho Pt seen and examined in dialysis. s/p right IM gamma nail, right distal humerus fx Selected Entries 07/27/16 07/27/16 10:00 12:50 Temperature 97.7 F Pulse Rate 88 Respiratory 18 Rate Blood Pressure 125/68 Dressing c/d/i, calf soft, nt nvi immobilizer intact a/p PT if able oob if able pain control dvt ppx d/c planning
[2016-07-27] MEDS ORDERED: ALBUTEROL SO4 2.5/IPRATROPIUM 0.5 INH SOL 3 ML VIAL.NEB. NEB ONE (20:20)
[2016-07-27 20:59] LABS: ARTERIAL BLD GAS O2 SATURATION 97.7 % (90-98.9); ARTERIAL BLOOD GAS HCO3 29.2 meq/L (22-26); ARTERIAL BLOOD GAS PO2 90.9 mmHg (68-100); ARTERIAL BLOOD GAS pH 7.45 (7.35-7.45)
[2016-07-27 21:00] LABS: ALLENS TEST POSITIVE; ART PUNCT SITE LEFT RADIAL; LPM/O2% 4L; PT. ON O2? YES; TYPE OF O2 NASAL
[2016-07-27 21:10] LABS: MCH 31.8 pg (25.7-33.7); MCHC 31.8 g/dl (32.0-36.0); MEAN PLT VOLUME 8.6 fl (7.5-11.1); PLATELET COUNT 331 K/MM3 (134-434); RDW 18.6 % (11.6-15.6); WHITE BLOOD COUNT 16.8 K/mm3 (4.0-10.0)
[2016-07-27 21:35] LABS: CALCIUM 7.9 mg/dL (8.5-10.1); CREATININE 2.8 mg/dL (0.55-1.02)
[2016-07-27] MEDS: oxyCODONE HCL 5 MG TABLET PO PRN (21:35)
[2016-07-27] MEDS: ATORVASTATIN CA 10 MG TABLET (FP) PO SCH (21:35)
[2016-07-27] MEDS ORDERED: INSULIN (NOVOLOG) ASPART 100 UNITS/ML 10ML VIAL ONE (21:49)
--- NOTE | 2016-07-27 22:35 | HOSP ---
Addendum entered and electronically signed by Corbin Gamez RES 07/27/16 22:37 : labs reviewed; ABG Results ABG pH 7.45 (7.35-7.45) 07/27/16 20:49 ABG pCO2 at Pt Temp 43.2 mmHg (35-45) D 07/27/16 20:49 ABG pO2 at Pt Temp 90.9 mmHg (68-100) D 07/27/16 20:49 ABG HCO3 29.2 meq/L (22-26) H 07/27/16 20:49 ABG O2 Sat (Measured) 97.7 % (90-98.9) 07/27/16 20:49 ABG O2 Content 15.2 % vol (15-22) 07/27/16 20:49 ABG Base Excess 5.0 meq/l (-2-2) H 07/27/16 20:49 CBCD WBC 16.8 K/mm3 (4.0-10.0) H 07/27/16 21:00 RBC 3.38 M/mm3 (3.60-5.2) L 07/27/16 21:00 Hgb 10.7 GM/dL (10.7-15.3) 07/27/16 21:00 Hct 33.8 % (32.4-45.2) 07/27/16 21:00 MCV 100.0 fl (80-96) H 07/27/16 21:00 MCHC 31.8 g/dl (32.0-36.0) L 07/27/16 21:00 RDW 18.6 % (11.6-15.6) H 07/27/16 21:00 Plt Count 331 K/MM3 (134-434) 07/27/16 21:00 MPV 8.6 fl (7.5-11.1) 07/27/16 21:00 CMP Sodium 132 mmol/L (136-145) L 07/27/16 21:00 Potassium 3.6 mmol/L (3.5-5.1) 07/27/16 21:00 Chloride 91 mmol/L (98-107) L 07/27/16 21:00 Carbon Dioxide 30 mmol/L (21-32) 07/27/16 21:00 Anion Gap 11 (8-16) 07/27/16 21:00 BUN 24 mg/dL (7-18) H D 07/27/16 21:00 Creatinine 2.8 mg/dL (0.55-1.02) H D 07/27/16 21:00 Creat Clearance w eGFR 12.44 (>60) 07/24/16 09:00 Random Glucose 203 mg/dL (74-106) H D 07/27/16 21:00 Calcium 7.9 mg/dL (8.5-10.1) L 07/27/16 21:00 Total Bilirubin 0.8 mg/dL (0.2-1.0) 07/24/16 09:00 AST 28 U/L (15-37) D 07/24/16 09:00 ALT 8 U/L (12-78) L D 07/24/16 09:00 Alkaline Phosphatase 197 U/L (45-117) H 07/24/16 09:00 Total Protein 5.5 g/dl (6.4-8.2) L 07/24/16 09:00 Albumin 2.0 g/dl (3.4-5.0) L 07/24/16 09:00 Ekg reviewed. cxr: reviewed. Patient is feeling better Original Note: Subjective - Review of Symptoms Events since last encounter: RN called that patient is breathing rapidly and is getting anxious. Patient seen and examined : Patient of AFIB, CAD, CHF, HTN, Hyperlipdemia. patient was lying on bed, having tachypnea. Patient and her states that she is breathing heavily since before. Patient is in on 3L of oxygen Vitals; Spo2 - 98-100 % on 3L o2 CT 98 RR 26 Chest ; bl air entry present, wheezing present b/l CVS s1s2 normal Abd: soft, non tender, no guarding Plan : Neb with duoneb Get cbc, bmp, cxr, ekg, abg Physical Examination Vital Signs: Vital Signs Temperature 97.6 F 07/27/16 21:43 Pulse Rate 102 H 07/27/16 21:43 Respiratory Rate 24 07/27/16 21:43 Blood Pressure 134/60 07/27/16 21:43 O2 Sat by Pulse Oximetry (%) 98 07/27/16 09:00 Labs: CBC, BMP 07/27/16 21:00 07/27/16 21:00 Visit type - Emergency Visit Emergency Visit: Yes ED Registration Date: 07/09/16 Care time: The patient presented to the Emergency Department on the above date and was hospitalized for further evaluation of their emergent condition. - New Patient This patient is new to me today: Yes Date on this admission: 07/27/16 - Critical Care Critical Care patient: No
[2016-07-28] MEDS: ALBUTEROL SO4 2.5/IPRATROPIUM 0.5 INH SOL 3 ML VIAL.NEB. NEB PRN ×2 (05:28→09:19)
[2016-07-28] MEDS: INSULIN SLIDING SCALE (NOVOLOG) 1 VIAL SQ SCH ×4 (06:05→23:13)
[2016-07-28 08:25] LABS: CALCIUM 8.1 mg/dL (8.5-10.1); CREATININE 3.2 mg/dL (0.55-1.02)
[2016-07-28] MEDS ORDERED: PT OWN MED DRAWER 7, Y5N ONE (09:16)
[2016-07-28] MEDS: NYSTATIN 100,000 UNIT/GM TOPICAL CREAM 15 GM TUBE TP SCH ×2 (09:19→22:55)
[2016-07-28] MEDS: CHOLECALCIFEROL (VITAMIN D3) 1,000 UNIT TABLET (FP) PO SCH (09:20)
[2016-07-28] MEDS: POLYETHYLENE GLYCOL 3350 119 GM BTL PO SCH ×2 (09:20→22:54)
[2016-07-28] MEDS: DOCUSATE SODIUM 100 MG CAPSULE (FP) PO SCH ×2 (09:20→22:54)
[2016-07-28] MEDS: VITAMIN B COMP W-C 1 EA TABLET PO SCH (09:20)
[2016-07-28] MEDS: APIXABAN 2.5 MG TABLET PO SCH ×2 (09:20→22:54)
[2016-07-28] MEDS: FUROSEMIDE 40 MG TABLET (FP) PO SCH (09:20)
[2016-07-28] MEDS: ERTAPENEM SODIUM 0.5 GM in SODIUM CHLORIDE 50 ML IVPB SCH (10:36)
[2016-07-28] MEDS ORDERED: INSULIN (NOVOLOG) ASPART 100 UNITS/ML 10ML VIAL ONE ×2 (10:43→23:11)
--- NOTE | 2016-07-28 11:04 | PN ---
Progress Note (short form) - Note Progress Note: s: no cp palps dizzy; had some sob overnight, improved but still mildly present now, nebs helped o: Vital Signs Period Temp Pulse Resp BP Sys/Adams Pulse Ox Last 24 Hr 97.4 F-98.2 F 85-102 18-24 101-142/50-109 100-100 NAD. calm JVD difficult to assess due to neck habitus, but does not appear elevated RRR nl S1 S2. No S3, S4 or mrg scattered exp wheeze,nl eff + BS, soft, obese, ND, NT Venous stasis changes with trace LE edema No jaundice, no diaphoresis. aaox3 Current Medications Generic Name Dose Route Start Last Admin Trade Name Freq PRN Reason Stop Dose Admin Acetaminophen 650 mg 07/10/16 16:54 07/26/16 23:10 Tylenol - PO 650 mg Q4H PRN Administration FEVER OR PAIN Albuterol/Ipratropium 1 amp 07/26/16 09:31 07/28/16 09:19 Duoneb - NEB 1 amp Q6H PRN Administration SHORTNESS OF BREATH Apixaban 2.5 mg 07/19/16 22:00 07/28/16 09:20 Eliquis - PO 2.5 mg BID [facility] Administration Atorvastatin Calcium 10 mg 07/10/16 22:00 07/27/16 21:35 Lipitor - PO 10 mg HS [facility] Administration Cholecalciferol 1,000 unit 07/12/16 17:00 07/28/16 09:20 Vitamin D3 - PO 1,000 unit DAILY [facility] Administration Docusate Sodium 100 mg 07/10/16 22:00 07/28/16 09:20 Colace - PO 100 mg BID [facility] Administration Furosemide 80 mg 07/12/16 17:00 07/28/16 09:20 Lasix - PO 80 mg DAILY [facility] Administration Furosemide 40 mg 07/28/16 11:15 Lasix Injection - IVPUSH 07/28/16 11:16 ONCE ONE Ertapenem 0.5 gm/ Sodium 50 mls @ 50 mls/hr 07/23/16 13:00 07/28/16 10:36 Chloride IVPB 50 mls/hr DAILY [facility] Administration Protocol Insulin Aspart 1 vial 07/10/16 22:00 07/28/16 11:00 Novolog Vial Sliding Scale - SQ 3 units ACHS D[facility]W Administration Protocol Loratadine 10 mg 07/10/16 16:54 Claritin - PO DAILY PRN allergy Methylprednisolone Sodium Succinate 125 mg 07/28/16 11:15 Solu-Medrol - IVPB 07/28/16 11:16 ONCE ONE Methylprednisolone Sodium Succinate 80 mg 07/28/16 18:00 Solu-Medrol - IVPB Q8H-IV [facility] Multivit/Ca Carb/B Cmplx/FA/Prenat 1 tablet 07/24/16 10:00 07/28/16 09:20 Nephro-Annie - PO 1 tablet DAILY [facility] Administration Nystatin 1 applic 07/24/16 22:00 07/28/16 09:19 Mycostatin Cream - TP 1 applic BID [facility] Administration Ondansetron HCl 4 mg 07/10/16 16:54 Zofran Injection IVPB Q6H PRN NAUSEA Oxycodone HCl 10 mg 07/16/16 14:37 07/27/16 21:35 Roxicodone - PO 10 mg Q4H PRN Administration PAIN Polyethylene Glycol 17 gm 07/18/16 10:00 07/28/16 09:20 Miralax (For Daily Use) - PO Not Given BID [facility] CBC, BMP 07/27/16 21:00 07/28/16 06:35 EKG: afib 115 bpm. LAD. LAFB. incomplete RBBB. poor r wave progression. echo 08/2015: nl lv/rv. mild lae. valves wnl. no rvsp. A/p: 85 yo with CAD s/p AZUL to RCA '14, Afib on eliquis, dCHF, HTN, HL, IDDM, GEORGE declines CPAP and CKD on HD who presents s/p fall c/b hip fracture. CAD s/p AZUL to RCA in 03/2014 - on statin. not on ASA b/c of hi risk gib and on AC. - remains stable, no anginal symptoms, nl lvef Afib - off AV alexandr blockade due to prior bradycardia (AT/AFL with slow conduction). - rate here is overall controlled - cont eliquis (details of decision in prior notes) chronic HFPEF, chronic venous insuff: - stable, no signif volume excess (chronic LE edema is stable), cxr w/o chf - volume mgm't with HD per renal. HTN - stable off meds here ESRD on HD/hyperkalemia/hyponatremia - volume mgm't with HD and po lasix per renal. GEORGE on CPAP - stable uti: -on abx sob: -does not appear to be chf related, cxr w/o congestion and pt with wheezing on exam -cont nebs, plan per pmd
[2016-07-28] MEDS ORDERED: methylPREDNISolone NA SUCC 125 MG/2 ML VIAL IVPB ONE (11:15)
[2016-07-28] MEDS ORDERED: FUROSEMIDE 40 MG/4 ML INJECTABLE VIAL IVPUSH ONE (11:15)
--- NOTE | 2016-07-28 11:55 | PN ---
Progress Note, Physician History of Present Illness: Feeling short of breath this morning. Had similar episode last night, which then resolved. Xray was done last night and again this morning (no significant changes on it , with no evidence of florid fluid overload). Did receive partial dialysis yesterday due to receiving blood transfusion Friday. - Current Medication List Current Medications: Active Medications Acetaminophen (Tylenol -) 650 mg PO Q4H PRN PRN Reason: FEVER OR PAIN Last Admin: 07/26/16 23:10 Dose: 650 mg Albuterol/Ipratropium (Duoneb -) 1 amp NEB Q6H PRN PRN Reason: SHORTNESS OF BREATH Last Admin: 07/28/16 09:19 Dose: 1 amp Apixaban (Eliquis -) 2.5 mg PO BID [facility] Last Admin: 07/28/16 09:20 Dose: 2.5 mg Atorvastatin Calcium (Lipitor -) 10 mg PO HS [facility] Last Admin: 07/27/16 21:35 Dose: 10 mg Cholecalciferol (Vitamin D3 -) 1,000 unit PO DAILY [facility] Last Admin: 07/28/16 09:20 Dose: 1,000 unit Docusate Sodium (Colace -) 100 mg PO BID [facility] Last Admin: 07/28/16 09:20 Dose: 100 mg Furosemide (Lasix -) 80 mg PO DAILY [facility] Last Admin: 07/28/16 09:20 Dose: 80 mg Ertapenem 0.5 gm/ Sodium (Chloride) 50 mls @ 50 mls/hr IVPB DAILY DREW PRN Reason: Protocol Last Admin: 07/28/16 10:36 Dose: 50 mls/hr Insulin Aspart (Novolog Vial Sliding Scale -) 1 vial SQ ACHS DREW PRN Reason: Protocol Last Admin: 07/28/16 11:00 Dose: 3 units Loratadine (Claritin -) 10 mg PO DAILY PRN PRN Reason: allergy Methylprednisolone Sodium Succinate (Solu-Medrol -) 80 mg IVPB Q8H-IV [facility] Multivit/Ca Carb/B Cmplx/FA/Prenat (Nephro-Annie -) 1 tablet PO DAILY [facility] Last Admin: 07/28/16 09:20 Dose: 1 tablet Nystatin (Mycostatin Cream -) 1 applic TP BID [facility] Last Admin: 07/28/16 09:19 Dose: 1 applic Ondansetron HCl (Zofran Injection) 4 mg IVPB Q6H PRN PRN Reason: NAUSEA Oxycodone HCl (Roxicodone -) 10 mg PO Q4H PRN PRN Reason: PAIN Last Admin: 07/27/16 21:35 Dose: 10 mg Polyethylene Glycol (Miralax (For Daily Use) -) 17 gm PO BID DREW Last Admin: 07/28/16 09:20 Dose: Not Given - Objective Vital Signs: Vital Signs Temperature 98.2 F 07/28/16 06:00 Pulse Rate 98 H 07/28/16 06:00 Respiratory Rate 20 07/28/16 06:00 Blood Pressure 125/70 07/28/16 06:00 O2 Sat by Pulse Oximetry (%) 100 07/27/16 22:00 Constitutional: Yes: Anxious, Mild Distress (due to dyspnea) Eyes: Yes: Conjunctiva Clear, EOM Intact Cardiovascular: Yes: Tachycardia, S1, S2. No: Murmur Respiratory: Yes: Wheezes (bilaterally) Gastrointestinal: Yes: Normal Bowel Sounds, Soft, Abdomen, Obese. No: Distention, Tenderness Extremities: Yes: Other (chronic venous stasis changes b/l legs) Edema: Yes Edema: LLE: 2+, RLE: 2+ Neurological: Yes: Alert, Oriented Labs: CBC, BMP 07/27/16 21:00 07/28/16 06:35 INR, PTT INR 1.18 (0.82-1.09) H 07/10/16 07:40 Assessment/Plan Current Active Problems Constipation due to opioid therapy (Acute) Hip fracture (Acute) s/p ORIF UTI (urinary tract infection) (Acute) DM Afib ESRD on dialysis HTN Anemia Sepsis SHortness fo breath h/o COPD GEORGE -CXR not showing over fluid overload or effusions -will give 1 dose IV lasix given h/o diastolic CHF, but will start on COPD exac treatment, given wheezing on exam (IV solumedrol, cont nebs, pulm eval) -low suspicion of PE given already on Eliquis. -cont abx for sepsis -will need intensive PT when current status improves for re-conditioning following hip fracture
[2016-07-28] MEDS ORDERED: ALBUTEROL SO4 2.5/IPRATROPIUM 0.5 INH SOL 3 ML VIAL.NEB. NEB PRN (11:56)
[2016-07-28] MEDS: ALBUTEROL SO4 2.5/IPRATROPIUM 0.5 INH SOL 3 ML VIAL.NEB. NEB SCH ×2 (12:55→19:11)
--- NOTE | 2016-07-28 13:25 | CON.PULM ---
Consult Consult Specialty:: PULMONARY Referred by:: AALIYAH Reason for Consultation:: SOB/WHEEZE - History of Present Illness Chief Complaint: SOB/WHEEZE History of Present Illness: ASKED TO EVAL CRF PATIENT ON HD WITH WHEEZES/SOB AND INCREASING LETHARGY MULTIPLE MED PROBLEMS LISTED - History Source History Provided By: Family Member, Medical Record Limitations to Obtaining History: Clinical Condition - Past Medical History Cardio/Vascular: Yes: AFIB, CAD, CHF, HTN, Hyperlipdemia Pulmonary: Yes: Sleep Apnea Renal/: Yes: Renal Failure, Renal Inusuff Rheumatology: Yes: Gout Endocrine: Yes: Diabetes Mellitus - Past Surgical History Past Surgical History: Yes: Cataract Removal (bilaterally), Cholecystectomy, Hernia Repair (umbilical x2), Hysterectomy, Joint Replacement (rightj knee) - Alcohol/Substance Use Hx Alcohol Use: No History of Substance Use: reports: None - Smoking History Smoking history: Never smoked Have you smoked in the past 12 months: No Aproximately how many cigarettes per day: 0 - Social History Usual Living Arrangement: With Spouse ADL: Independent Occupation: former housewife, , 4 daughters History of Recent Travel: No Home Medications - Allergies Allergies/Adverse Reactions: Allergies Allergy/AdvReac Type Severity Reaction Status Date / Time codeine AdvReac Verified 07/09/16 04:57 - Home Medications Home Medications: Ambulatory Orders Atorvastatin Calcium [Lipitor] 10 mg PO HS 08/25/12 Cholecalciferol (Vitamin D3) [Vitamin D] 1,000 unit PO DAILY 08/25/12 Iron 28 mg PO Q2D 08/14/15 Loratadine [Claritin -] 10 mg PO DAILY PRN 08/14/15 Levemir Flextouch 8 units SQ HS 11/01/15 Aspirin [Ecotrin] 81 mg PO DAILY 07/09/16 Furosemide [Lasix] 80 mg PO DAILY 07/09/16 Tramadol HCl 50 mg PO HS PRN 07/09/16 Family Disease History - Family Disease History Family History: Unable to Obtain Review of Systems Unable to obtain ROS, reason: UNABLE TO OBTAIN Physical Exam Vital Sings: Vital Signs Temperature 98.4 F 07/28/16 10:00 Pulse Rate 105 H 07/28/16 10:00 Respiratory Rate 18 07/28/16 10:00 Blood Pressure 132/72 07/28/16 10:00 O2 Sat by Pulse Oximetry (%) 100 07/28/16 09:00 Constitutional: Yes: Mild Distress Eyes: Yes: EOM Intact HENT: Yes: Normocephalic Neck: Yes: Trachea Midline Cardiovascular: Yes: Pulse Irregular, S1, S2, Other (AF) Respiratory: Yes: Rhonchi, Wheezes Gastrointestinal: Yes: Abdomen, Obese Edema: LLE: 1+, RLE: Trace Neurological: Yes: Lethargy Labs: CBC, BMP 07/27/16 21:00 07/28/16 06:35 ABG Results ABG pH 7.45 (7.35-7.45) 07/27/16 20:49 ABG pCO2 at Pt Temp 43.2 mmHg (35-45) D 07/27/16 20:49 ABG pO2 at Pt Temp 90.9 mmHg (68-100) D 07/27/16 20:49 ABG HCO3 29.2 meq/L (22-26) H 07/27/16 20:49 ABG O2 Sat (Measured) 97.7 % (90-98.9) 07/27/16 20:49 ABG O2 Content 15.2 % vol (15-22) 07/27/16 20:49 ABG Base Excess 5.0 meq/l (-2-2) H 07/27/16 20:49 REST REVIEWED Imaging - Results Chest X-ray: Image Reviewed EKG: Image Reviewed Problem List - Problems (1) Hip fracture Code(s): S72.009A - FRACTURE OF UNSP PART OF NECK OF UNSP FEMUR, INIT Qualifiers: Encounter type: initial encounter Fracture type: closed Laterality : right Qualified Code(s): S72.001A - Fracture of unspecified part of neck of right femur, initial encounter for closed fracture (2) UTI (urinary tract infection) Code(s): N39.0 - URINARY TRACT INFECTION, SITE NOT SPECIFIED (3) (HFpEF) heart failure with preserved ejection fraction Code(s): I50.9 - HEART FAILURE, UNSPECIFIED (4) Acute exacerbation of CHF (congestive heart failure) Code(s): I50.9 - HEART FAILURE, UNSPECIFIED (5) Kooay-zr-cmdwags kidney injury Code(s): N17.9 - ACUTE KIDNEY FAILURE, UNSPECIFIED N18.9 - CHRONIC KIDNEY DISEASE, UNSPECIFIED (6) Bacteremia Code(s): R78.81 - BACTEREMIA Assessment/Plan ESBL BACTEREMIA COPD/OSAS/M OBESITY S/P RIGHT GAMMA NAIL FEMUR 07/15/16 ESRD:HD CHRONIC AF ON A/C HTN/HPL IDDM RECHECK ABG FOLLOW CXR PATIENT NOT RESPONSIVE TO LASIX EXTRA HD SESSION NOT HELPFUL THUS FAR REFUSES NIPPV/WILL TRY TO ENCOURAGE AVOID SEDATION STEROIDS/BRONCHODILATORS ORDERED WILL FOLLOW Rajan IBRAHIM MD
[2016-07-28 13:46] LABS: ARTERIAL BLD GAS O2 SATURATION 98.1 % (90-98.9); ARTERIAL BLOOD GAS BASE EXCESS 3.5 meq/l (-2-2); ARTERIAL BLOOD GAS PO2 95.2 mmHg (68-100); ARTERIAL BLOOD GAS pH 7.43 (7.35-7.45)
[2016-07-28 13:48] LABS: ALLENS TEST POSITIVE; ART PUNCT SITE RIGHT RADIAL; LPM/O2% 3L; PT. ON O2? YES; TYPE OF O2 NASAL
[2016-07-28 13:50] LABS: ARTERIAL BLOOD GAS HCO3 27.7 meq/L (22-26)
[2016-07-28] MEDS: oxyCODONE HCL 5 MG TABLET PO PRN ×2 (13:55→23:13)
--- NOTE | 2016-07-28 15:35 | PN ---
Progress Note (short form) - Note Progress Note: Renal Follow up for ESRD on HD Pt seen and examined at the bedside events from last night and this am reviewed pt continues to have dyspnea + orthopnea no chest pain s/p Nebs and steroids Vital Signs Temperature 97.6 F 07/28/16 14:27 Pulse Rate 68 07/28/16 14:27 Respiratory Rate 19 07/28/16 14:27 Blood Pressure 132/72 07/28/16 10:00 O2 Sat by Pulse Oximetry (%) 100 07/28/16 09:00 Intake & Output 07/25/16 07/26/16 07/27/16 07/28/16 23:59 23:59 23:59 23:59 Intake Total 900 650 230 50 Balance 900 650 230 50 Weight 206 lb 9 oz 205 lb 1.6 oz 204 lb 4 oz 204 lb 8 oz Gen: NAD, awake and alert CVS: irregular, no M/R Lungs: Dec BS Lung bases, no rales Abd: soft NT/ND Ext: Trace to 1+ edema in LE Access: Left ARM AVF CBC, BMP 07/27/16 21:00 07/28/16 06:35 Current Medications Acetaminophen (Tylenol -) 650 mg PO Q4H PRN PRN Reason: FEVER OR PAIN Last Admin: 07/26/16 23:10 Dose: 650 mg Albuterol/Ipratropium (Duoneb -) 1 amp NEB Q4H PRN PRN Reason: SHORTNESS OF BREATH Albuterol/Ipratropium (Duoneb -) 1 amp NEB [facility]IDR [facility] Last Admin: 07/28/16 12:55 Dose: 1 amp Apixaban (Eliquis -) 2.5 mg PO BID [facility] Last Admin: 07/28/16 09:20 Dose: 2.5 mg Atorvastatin Calcium (Lipitor -) 10 mg PO HS [facility] Last Admin: 07/27/16 21:35 Dose: 10 mg Cholecalciferol (Vitamin D3 -) 1,000 unit PO DAILY [facility] Last Admin: 07/28/16 09:20 Dose: 1,000 unit Docusate Sodium (Colace -) 100 mg PO BID [facility] Last Admin: 07/28/16 09:20 Dose: 100 mg Furosemide (Lasix -) 80 mg PO DAILY [facility] Last Admin: 07/28/16 09:20 Dose: 80 mg Ertapenem 0.5 gm/ Sodium (Chloride) 50 mls @ 50 mls/hr IVPB DAILY DREW PRN Reason: Protocol Last Admin: 07/28/16 10:36 Dose: 50 mls/hr Insulin Aspart (Novolog Vial Sliding Scale -) 1 vial SQ ACHS DREW PRN Reason: Protocol Last Admin: 07/28/16 11:00 Dose: 3 units Loratadine (Claritin -) 10 mg PO DAILY PRN PRN Reason: allergy Methylprednisolone Sodium Succinate (Solu-Medrol -) 80 mg IVPB Q8H-IV [facility] Multivit/Ca Carb/B Cmplx/FA/Prenat (Nephro-Annie -) 1 tablet PO DAILY [facility] Last Admin: 07/28/16 09:20 Dose: 1 tablet Nystatin (Mycostatin Cream -) 1 applic TP BID [facility] Last Admin: 07/28/16 09:19 Dose: 1 applic Ondansetron HCl (Zofran Injection) 4 mg IVPB Q6H PRN PRN Reason: NAUSEA Oxycodone HCl (Roxicodone -) 10 mg PO Q4H PRN PRN Reason: PAIN Last Admin: 07/28/16 13:55 Dose: 10 mg Polyethylene Glycol (Miralax (For Daily Use) -) 17 gm PO BID [facility] Last Admin: 07/28/16 09:20 Dose: Not Given A/P 85 year old woman with PMhx of ESRD on HD (MWF), Afib on A/C, HTN, CAD s/p stents, CHF, DM who presented s/p fall with multiple fractures. #ESRD on HD/Fluid overload Pt continues to have dyspnea, has fluid on CXR Will plan for isolated UF today with goal UF of 2.5L Regular HD tomorrow with UF as tolerated Fluid restriction/salt restriction #Fever/Gram Negative Bacteria ? urinary source -> initially grew E.Coli in urine but did get Abx on presentation Continue Ertapenum repeat cultures d/o growth so far CT of the Abd as per ID #Intertrochanteric hip fx/Humerus Fracture s/p Gamma Nail Arm in immobilizer Pain control #CKD Related Anemia Hgb with good responses/p transfusion continue ARI with HD Massimo Melissa DO
[2016-07-28] MEDS: methylPREDNISolone NA SUCC 125 MG/2 ML VIAL IVPB SCH (18:35)
[2016-07-28] MEDS: ATORVASTATIN CA 10 MG TABLET (FP) PO SCH (22:54)
[2016-07-29] MEDS: ALBUTEROL SO4 2.5/IPRATROPIUM 0.5 INH SOL 3 ML VIAL.NEB. NEB SCH ×5 (00:15→23:42)
--- NOTE | 2016-07-29 00:45 | EKG ---
Test Reason : Blood Pressure : / mmHG Vent. Rate : 091 BPM Atrial Rate : 076 BPM P-R Int : 000 ms QRS Dur : 132 ms QT Int : 384 ms P-R-T Axes : 000 -76 062 degrees QTc Int : 472 ms ATRIAL FIBRILLATION LEFT AXIS DEVIATION RIGHT BUNDLE BRANCH BLOCK POSSIBLE LATERAL INFARCT (CITED ON OR BEFORE 27-JUL-2016) INFERIOR INFARCT , AGE UNDETERMINED ABNORMAL ECG WHEN COMPARED WITH ECG OF 09-JUL-2016 06:11, T WAVE VARIATION VENT. RATE HAS DECREASED Confirmed by ADRIAN GALDAMEZ MD ([id number]) on 07/29/2016 12:45:00 AM Referred By: HOSPITALIST Confirmed By:ADRIAN GALDAMEZ MD
[2016-07-29] MEDS: methylPREDNISolone NA SUCC 125 MG/2 ML VIAL IVPB SCH ×3 (02:14→18:04)
[2016-07-29] MEDS ORDERED: INSULIN (NOVOLOG) ASPART 100 UNITS/ML 10ML VIAL ONE ×2 (06:44→21:31)
[2016-07-29] MEDS: INSULIN SLIDING SCALE (NOVOLOG) 1 VIAL SQ SCH ×4 (06:45→21:32)
--- NOTE | 2016-07-29 10:07 | PN ---
Progress Note (short form) - Note Progress Note: s: no cp palps dizzy; mild sob persists o: Vital Signs Period Temp Pulse Resp BP Sys/Adams Pulse Ox Last 24 Hr 97.3 F-98.4 F 60-117 18-22 101-140/45-64 100 NAD. calm JVD difficult to assess due to neck habitus, but does not appear elevated RRR nl S1 S2. No S3, S4 or mrg scattered exp wheeze,nl eff + BS, soft, obese, ND, NT Venous stasis changes with trace LE edema No jaundice, no diaphoresis. aaox3 Current Medications Generic Name Dose Route Start Last Admin Trade Name Freq PRN Reason Stop Dose Admin Acetaminophen 650 mg 07/10/16 16:54 07/26/16 23:10 Tylenol - PO 650 mg Q4H PRN Administration FEVER OR PAIN Albuterol/Ipratropium 1 amp 07/28/16 11:56 07/28/16 21:30 Duoneb - NEB 1 amp Q4H PRN Administration SHORTNESS OF BREATH Albuterol/Ipratropium 1 amp 07/28/16 12:00 07/29/16 07:15 Duoneb - NEB Not Given QIDR DREW Apixaban 2.5 mg 07/19/16 22:00 07/28/16 22:54 Eliquis - PO 2.5 mg BID DREW Administration Atorvastatin Calcium 10 mg 07/10/16 22:00 07/28/16 22:54 Lipitor - PO 10 mg HS DREW Administration Cholecalciferol 1,000 unit 07/12/16 17:00 07/28/16 09:20 Vitamin D3 - PO 1,000 unit DAILY DREW Administration Docusate Sodium 100 mg 07/10/16 22:00 07/28/16 22:54 Colace - PO 100 mg BID DREW Administration Epoetin Abraham 10,000 units 07/29/16 08:00 Epogen - IVPUSH 07/29/16 08:01 ONCE ONE Furosemide 80 mg 07/12/16 17:00 07/28/16 09:20 Lasix - PO 80 mg DAILY DREW Administration Ertapenem 0.5 gm/ Sodium 50 mls @ 50 mls/hr 07/23/16 13:00 07/28/16 10:36 Chloride IVPB 50 mls/hr DAILY DREW Administration Protocol Insulin Aspart 1 vial 07/10/16 22:00 07/29/16 06:45 Novolog Vial Sliding Scale - SQ 3 units ACHS DREW Administration Protocol Loratadine 10 mg 07/10/16 16:54 Claritin - PO DAILY PRN allergy Methylprednisolone Sodium Succinate 80 mg 07/28/16 18:00 07/29/16 02:14 Solu-Medrol - IVPB 80 mg Q8H-IV DREW Administration Multivit/Ca Carb/B Cmplx/FA/Prenat 1 tablet 07/24/16 10:00 07/28/16 09:20 Nephro-Annie - PO 1 tablet DAILY DREW Administration Nystatin 1 applic 07/24/16 22:00 07/28/16 22:55 Mycostatin Cream - TP 1 applic BID DREW Administration Ondansetron HCl 4 mg 07/10/16 16:54 Zofran Injection IVPB Q6H PRN NAUSEA Oxycodone HCl 10 mg 07/28/16 18:54 07/28/16 23:13 Roxicodone - PO 10 mg Q4H PRN Administration PAIN Polyethylene Glycol 17 gm 07/18/16 10:00 07/28/16 22:54 Miralax (For Daily Use) - PO 17 gm BID DREW Administration CBC, BMP 07/27/16 21:00 07/28/16 06:35 echo 08/2015: nl lv/rv. mild lae. valves wnl. no rvsp. A/p: 85 yo with CAD s/p AZUL to RCA '14, Afib on eliquis, dCHF, HTN, HL, IDDM, GEORGE declines CPAP and CKD on HD who presents s/p fall c/b hip fracture. CAD s/p AZUL to RCA in 03/2014 - on statin. not on ASA b/c of hi risk gib and on AC. - remains stable, no anginal symptoms, nl lvef Afib - off AV alexandr blockade due to prior bradycardia (AT/AFL with slow conduction). - rate here is overall controlled - cont eliquis (details of decision in prior notes) chronic HFPEF, chronic venous insuff: - had extra UF session yesterday ffor sob, possible chf. today will have routine HD - continued volume mgm't with HD per renal. HTN - stable off meds here ESRD on HD/hyperkalemia/hyponatremia - volume mgm't with HD and po lasix per renal. GEORGE on CPAP - stable uti: -on abx
--- NOTE | 2016-07-29 11:09 | PN ---
Progress Note (short form) - Note Progress Note: remains SOB unable to lay flat Vital Signs Period Temp Pulse Resp BP Sys/Adams Pulse Ox Last 24 Hr 97.3 F-98.4 F 60-117 18-22 101-140/45-64 100 cor-rrr lungs bilateral wheeze and rhonchi abd firm ext +edema left hip incision intact no erythema noted CBC, BMP 07/27/16 21:00 07/28/16 06:35 Microbiology 07/24/16 09:00 Blood - Pre-Dialysis Blood Culture - Final NO GROWTH AFTER 5 DAYS INCUBATION 07/24/16 09:00 Blood - Pre-Dialysis Blood Culture - Final NO GROWTH AFTER 5 DAYS INCUBATION 07/22/16 16:30 Urine - Urine - Catheterized Urine Culture - Final Vr Ec Faecium 07/21/16 12:30 Blood - Peripheral Venous Blood Culture - Final Escherichia Coli Esbl [employer] User Experience Strategist 07/22/16 11:27 Blood - Post-Dialysis Blood Culture - Final Escherichia Coli Esbl [employer] User Experience Strategist 07/21/16 12:20 Blood - Peripheral Venous Blood Culture - Final Escherichia Coli Esbl [employer] User Experience Strategist 07/17/16 12:15 Blood - Peripheral Venous Blood Culture - Final NO GROWTH AFTER 5 DAYS INCUBATION 07/17/16 12:15 Blood - Peripheral Venous Blood Culture - Final NO GROWTH AFTER 5 DAYS INCUBATION 07/16/16 15:00 Hip - Right Gram Stain - Final 07/16/16 15:00 Hip - Right Wound Culture - Final Staphylococcus Haemolyticus 07/10/16 07:00 Urine - Urine Cooper Urine Culture - Final Escherichia Coli a/p ecoli esbl bacteremia- continue ertapenem day #[address] scan today, she is volume overloaded and cannot lay flat for scan esrd/hd volume overload- continues with daily urltrafiltration, family and patient aware of need for fluid restriction s/p hip/humerus fracture repeat blood cultures with HD today d/w renal overall prognosis is poor
[2016-07-29 12:30] LABS: BASOPHIL 0.2 % (0-2.0); MCH 32.2 pg (25.7-33.7); MCHC 32.2 g/dl (32.0-36.0); MEAN CELL VOLUME 99.9 fl (80-96); MEAN PLT VOLUME 8.5 fl (7.5-11.1); NEUTROPHILS 95.2 % (42.8-82.8); PLATELET COUNT 326 K/MM3 (134-434); RDW 17.6 % (11.6-15.6); WHITE BLOOD COUNT 16.9 K/mm3 (4.0-10.0)
--- NOTE | 2016-07-29 12:43 | PN ---
Progress Note, Physician History of Present Illness: Remains SOB -had extra dialysis yesterday and having dialysis now. Breathing feeling a little better when she sits up. - Current Medication List Current Medications: Active Medications Acetaminophen (Tylenol -) 650 mg PO Q4H PRN PRN Reason: FEVER OR PAIN Last Admin: 07/26/16 23:10 Dose: 650 mg Albuterol/Ipratropium (Duoneb -) 1 amp NEB Q4H PRN PRN Reason: SHORTNESS OF BREATH Last Admin: 07/28/16 21:30 Dose: 1 amp Albuterol/Ipratropium (Duoneb -) 1 amp NEB QIDR [facility] Last Admin: 07/29/16 11:00 Dose: 1 amp Apixaban (Eliquis -) 2.5 mg PO BID [facility] Last Admin: 07/28/16 22:54 Dose: 2.5 mg Atorvastatin Calcium (Lipitor -) 10 mg PO HS [facility] Last Admin: 07/28/16 22:54 Dose: 10 mg Cholecalciferol (Vitamin D3 -) 1,000 unit PO DAILY [facility] Last Admin: 07/28/16 09:20 Dose: 1,000 unit Docusate Sodium (Colace -) 100 mg PO BID [facility] Last Admin: 07/28/16 22:54 Dose: 100 mg Epoetin Abraham (Procrit -) 10,000 unit IVPUSH ONCE ONE Stop: 07/29/16 13:01 Furosemide (Lasix -) 80 mg PO DAILY [facility] Last Admin: 07/28/16 09:20 Dose: 80 mg Ertapenem 0.5 gm/ Sodium (Chloride) 50 mls @ 50 mls/hr IVPB DAILY [facility] PRN Reason: Protocol Last Admin: 07/28/16 10:36 Dose: 50 mls/hr Insulin Aspart (Novolog Vial Sliding Scale -) 1 vial SQ ACHS DREW PRN Reason: Protocol Last Admin: 07/29/16 11:44 Dose: Not Given Loratadine (Claritin -) 10 mg PO DAILY PRN PRN Reason: allergy Methylprednisolone Sodium Succinate (Solu-Medrol -) 80 mg IVPB Q8H-IV [facility] Last Admin: 07/29/16 02:14 Dose: 80 mg Multivit/Ca Carb/B Cmplx/FA/Prenat (Nephro-Annie -) 1 tablet PO DAILY [facility] Last Admin: 07/28/16 09:20 Dose: 1 tablet Nystatin (Mycostatin Cream -) 1 applic TP BID [facility] Last Admin: 07/28/16 22:55 Dose: 1 applic Ondansetron HCl (Zofran Injection) 4 mg IVPB Q6H PRN PRN Reason: NAUSEA Oxycodone HCl (Roxicodone -) 10 mg PO Q4H PRN PRN Reason: PAIN Last Admin: 07/28/16 23:13 Dose: 10 mg Polyethylene Glycol (Miralax (For Daily Use) -) 17 gm PO BID [facility] Last Admin: 07/28/16 22:54 Dose: 17 gm - Objective Vital Signs: Vital Signs Temperature 97.6 F 07/29/16 11:35 Pulse Rate 81 07/29/16 11:40 Respiratory Rate 18 07/29/16 11:40 Blood Pressure 126/49 07/29/16 11:40 O2 Sat by Pulse Oximetry (%) 100 07/29/16 09:00 Constitutional: Yes: Mild Distress HENT: Yes: Atraumatic, Normocephalic Neck: Yes: Supple, Trachea Midline Cardiovascular: Yes: Regular Rate and Rhythm, S1, S2. No: Murmur Respiratory: Yes: Regular, CTA Bilaterally. No: Rales, Rhonchi, Wheezes Gastrointestinal: Yes: Normal Bowel Sounds, Soft. No: Distention, Tenderness Extremities: Yes: Other (chronic venous stasis b/l legs) Edema: Yes Neurological: Yes: Alert, Oriented Labs: CBC, BMP 07/29/16 11:50 INR, PTT INR 1.18 (0.82-1.09) H 07/10/16 07:40 Assessment/Plan Current Active Problems Constipation due to opioid therapy (Acute) Hip fracture (Acute) s/p ORIF UTI (urinary tract infection) (Acute) DM Afib ESRD on dialysis HTN Anemia Sepsis SHortness fo breath h/o COPD GEORGE -likely combo of fluid overload and COPD exac causing SOB -cont to receive dialysis for fluid removal and also to get solu-medrol and neb treatment
[2016-07-29 12:55] LABS: ALBUMIN 1.9 g/dl (3.4-5.0); BILIRUBIN,TOTAL 0.3 mg/dL (0.2-1.0); CALCIUM 7.8 mg/dL (8.5-10.1); CREATININE 4.1 mg/dL (0.55-1.02); TOT PROT 6.1 g/dl (6.4-8.2)
[2016-07-29] MEDS ORDERED: EPOETIN ALFA 10,000 UNIT/1 ML VIAL IVPUSH ONE (13:00)
[2016-07-29] MEDS: FUROSEMIDE 40 MG TABLET (FP) PO SCH ×2 (13:18→16:38)
[2016-07-29] MEDS: APIXABAN 2.5 MG TABLET PO SCH ×3 (13:18→21:25)
[2016-07-29] MEDS: ERTAPENEM SODIUM 0.5 GM in SODIUM CHLORIDE 50 ML IVPB SCH (13:18)
[2016-07-29] MEDS: DOCUSATE SODIUM 100 MG CAPSULE (FP) PO SCH ×2 (13:18→21:25)
[2016-07-29] MEDS: CHOLECALCIFEROL (VITAMIN D3) 1,000 UNIT TABLET (FP) PO SCH ×2 (13:19→16:39)
[2016-07-29] MEDS: NYSTATIN 100,000 UNIT/GM TOPICAL CREAM 15 GM TUBE TP SCH ×2 (13:19→21:27)
[2016-07-29] MEDS: POLYETHYLENE GLYCOL 3350 119 GM BTL PO SCH ×2 (13:19→21:25)
[2016-07-29] MEDS: VITAMIN B COMP W-C 1 EA TABLET PO SCH ×2 (13:19→16:38)
--- NOTE | 2016-07-29 14:00 | PN ---
Progress Note, Physician History of Present Illness: pulmonary alert,on dialysis,feeling better,sob improving - Current Medication List Current Medications: Active Medications Acetaminophen (Tylenol -) 650 mg PO Q4H PRN PRN Reason: FEVER OR PAIN Last Admin: 07/26/16 23:10 Dose: 650 mg Albuterol/Ipratropium (Duoneb -) 1 amp NEB Q4H PRN PRN Reason: SHORTNESS OF BREATH Last Admin: 07/28/16 21:30 Dose: 1 amp Albuterol/Ipratropium (Duoneb -) 1 amp NEB QIDR [facility] Last Admin: 07/29/16 11:00 Dose: 1 amp Apixaban (Eliquis -) 2.5 mg PO BID [facility] Last Admin: 07/29/16 13:18 Dose: Not Given Atorvastatin Calcium (Lipitor -) 10 mg PO HS [facility] Last Admin: 07/28/16 22:54 Dose: 10 mg Cholecalciferol (Vitamin D3 -) 1,000 unit PO DAILY [facility] Last Admin: 07/29/16 13:19 Dose: Not Given Docusate Sodium (Colace -) 100 mg PO BID [facility] Last Admin: 07/29/16 13:18 Dose: Not Given Furosemide (Lasix -) 80 mg PO DAILY [facility] Last Admin: 07/29/16 13:18 Dose: Not Given Ertapenem 0.5 gm/ Sodium (Chloride) 50 mls @ 50 mls/hr IVPB DAILY [facility] PRN Reason: Protocol Last Admin: 07/29/16 13:18 Dose: Not Given Insulin Aspart (Novolog Vial Sliding Scale -) 1 vial SQ ACHS [facility] PRN Reason: Protocol Last Admin: 07/29/16 11:44 Dose: Not Given Loratadine (Claritin -) 10 mg PO DAILY PRN PRN Reason: allergy Methylprednisolone Sodium Succinate (Solu-Medrol -) 80 mg IVPB Q8H-IV [facility] Last Admin: 07/29/16 13:19 Dose: Not Given Multivit/Ca Carb/B Cmplx/FA/Prenat (Nephro-Annie -) 1 tablet PO DAILY [facility] Last Admin: 07/29/16 13:19 Dose: Not Given Nystatin (Mycostatin Cream -) 1 applic TP BID [facility] Last Admin: 07/29/16 13:19 Dose: Not Given Ondansetron HCl (Zofran Injection) 4 mg IVPB Q6H PRN PRN Reason: NAUSEA Oxycodone HCl (Roxicodone -) 10 mg PO Q4H PRN PRN Reason: PAIN Last Admin: 07/28/16 23:13 Dose: 10 mg Polyethylene Glycol (Miralax (For Daily Use) -) 17 gm PO BID [facility] Last Admin: 07/29/16 13:19 Dose: Not Given - Objective Vital Signs: Vital Signs Temperature 97.6 F 07/29/16 11:35 Pulse Rate 81 07/29/16 11:40 Respiratory Rate 18 07/29/16 11:40 Blood Pressure 126/49 07/29/16 11:40 O2 Sat by Pulse Oximetry (%) 100 07/29/16 09:00 Constitutional: Yes: Well Nourished, Calm Eyes: Yes: WNL HENT: Yes: WNL Neck: Yes: WNL Cardiovascular: Yes: Pulse Irregular, S1, S2 Respiratory: Yes: Diminished, Wheezes (few wheezes) Gastrointestinal: Yes: Normal Bowel Sounds, Soft Extremities: Yes: WNL Edema: No Labs: CBC, BMP 07/29/16 11:50 07/29/16 11:50 INR, PTT INR 1.18 (0.82-1.09) H 07/10/16 07:40 Problem List - Problems (1) Afib Code(s): I48.91 - UNSPECIFIED ATRIAL FIBRILLATION (2) Anemia Code(s): D64.9 - ANEMIA, UNSPECIFIED (3) Bilateral leg edema Code(s): R60.0 - LOCALIZED EDEMA (4) CHF (congestive heart failure) Code(s): I50.9 - HEART FAILURE, UNSPECIFIED (5) CKD (chronic kidney disease) Code(s): N18.9 - CHRONIC KIDNEY DISEASE, UNSPECIFIED (6) Diabetes Code(s): E11.9 - TYPE 2 DIABETES MELLITUS WITHOUT COMPLICATIONS (7) HTN (hypertension) Code(s): I10 - ESSENTIAL (PRIMARY) HYPERTENSION (8) Renal failure Code(s): N19 - UNSPECIFIED KIDNEY FAILURE (9) Sleep apnea Code(s): G47.30 - SLEEP APNEA, UNSPECIFIED (10) End stage renal failure on dialysis Code(s): N18.6 - END STAGE RENAL DISEASE Z99.2 - DEPENDENCE ON RENAL DIALYSIS Assessment/Plan Problem List - Problems (1) Hip fracture Code(s): S72.009A - FRACTURE OF UNSP PART OF NECK OF UNSP FEMUR, INIT Qualifiers: Encounter type: initial encounter Fracture type: closed Laterality : right Qualified Code(s): S72.001A - Fracture of unspecified part of neck of right femur, initial encounter for closed fracture (2) UTI (urinary tract infection) Code(s): N39.0 - URINARY TRACT INFECTION, SITE NOT SPECIFIED (3) (HFpEF) heart failure with preserved ejection fraction Code(s): I50.9 - HEART FAILURE, UNSPECIFIED (4) Acute exacerbation of CHF (congestive heart failure) Code(s): I50.9 - HEART FAILURE, UNSPECIFIED (5) Ajddi-qq-vaunipn kidney injury Code(s): N17.9 - ACUTE KIDNEY FAILURE, UNSPECIFIED N18.9 - CHRONIC KIDNEY DISEASE, UNSPECIFIED (6) Bacteremia Code(s): R78.81 - BACTEREMIA Assessment/Plan ESBL BACTEREMIA COPD OSAS M OBESITY S/P RIGHT GAMMA NAIL FEMUR 07/15/16 ESRD:HD CHRONIC AF ON A/C HTN/HPL IDDM AFIB FOLLOW CXR HD 02 AVOID SEDATION STEROID TAPER BRONCHODILATORS DR WARE
--- NOTE | 2016-07-29 17:49 | PN ---
Progress Note (short form) - Note Progress Note: Renal Follow up for ESRD on HD Pt seen and examined during dialysis BP stable, goal uF is 3L pt feels better today no chest pain/Abd pain. + mild sob Vital Signs Temperature 97.2 F L 07/29/16 17:30 Pulse Rate 101 H 07/29/16 17:30 Respiratory Rate 18 07/29/16 17:30 Blood Pressure 92/47 07/29/16 17:30 O2 Sat by Pulse Oximetry (%) 100 07/29/16 09:00 Intake & Output 07/26/16 07/27/16 07/28/16 07/29/16 23:59 23:59 23:59 23:59 Intake Total 650 230 380 100 Output Total 0 Balance 650 230 380 100 Weight 205 lb 1.6 oz 204 lb 4 oz 204 lb 8 oz 205 lb 8 oz Gen: NAD, awake and alert CVS: irregular, no M/R Lungs: Dec BS Lung bases, no rales Abd: soft NT/ND Ext: Trace to 1+ edema in LE Access: Left ARM AVF CBC, BMP 07/29/16 11:50 07/29/16 11:50 Current Medications Acetaminophen (Tylenol -) 650 mg PO Q4H PRN PRN Reason: FEVER OR PAIN Last Admin: 07/26/16 23:10 Dose: 650 mg Albuterol/Ipratropium (Duoneb -) 1 amp NEB Q4H PRN PRN Reason: SHORTNESS OF BREATH Last Admin: 07/28/16 21:30 Dose: 1 amp Albuterol/Ipratropium (Duoneb -) 1 amp NEB QIDR [facility] Last Admin: 07/29/16 11:00 Dose: 1 amp Apixaban (Eliquis -) 2.5 mg PO BID [facility] Last Admin: 07/29/16 16:38 Dose: 2.5 mg Atorvastatin Calcium (Lipitor -) 10 mg PO HS [facility] Last Admin: 07/28/16 22:54 Dose: 10 mg Cholecalciferol (Vitamin D3 -) 1,000 unit PO DAILY [facility] Last Admin: 07/29/16 16:39 Dose: 1,000 unit Docusate Sodium (Colace -) 100 mg PO BID [facility] Last Admin: 07/29/16 13:18 Dose: Not Given Furosemide (Lasix -) 80 mg PO DAILY [facility] Last Admin: 07/29/16 16:38 Dose: 80 mg Ertapenem 0.5 gm/ Sodium (Chloride) 50 mls @ 50 mls/hr IVPB DAILY [facility] PRN Reason: Protocol Last Admin: 07/29/16 13:18 Dose: Not Given Insulin Aspart (Novolog Vial Sliding Scale -) 1 vial SQ ACHS [facility] PRN Reason: Protocol Last Admin: 07/29/16 16:45 Dose: 3 units Loratadine (Claritin -) 10 mg PO DAILY PRN PRN Reason: allergy Methylprednisolone Sodium Succinate (Solu-Medrol -) 80 mg IVPB Q8H-IV [facility] Last Admin: 07/29/16 13:19 Dose: Not Given Multivit/Ca Carb/B Cmplx/FA/Prenat (Nephro-Annie -) 1 tablet PO DAILY [facility] Last Admin: 07/29/16 16:38 Dose: 1 tablet Nystatin (Mycostatin Cream -) 1 applic TP BID [facility] Last Admin: 07/29/16 13:19 Dose: Not Given Ondansetron HCl (Zofran Injection) 4 mg IVPB Q6H PRN PRN Reason: NAUSEA Oxycodone HCl (Roxicodone -) 10 mg PO Q4H PRN PRN Reason: PAIN Last Admin: 07/28/16 23:13 Dose: 10 mg Polyethylene Glycol (Miralax (For Daily Use) -) 17 gm PO BID [facility] Last Admin: 07/29/16 13:19 Dose: Not Given A/P 85 year old woman with PMhx of ESRD on HD (MWF), Afib on A/C, HTN, CAD s/p stents, CHF, DM who presented s/p fall with multiple fractures. #ESRD on HD/Fluid overload HD today with 3L UF Fluid restriction Next planned HD is Friday #Fever/Gram Negative Bacteria Continue Abx as per ID repeat cultures today #Intertrochanteric hip fx/Humerus Fracture s/p Gamma Nail Arm in immobilizer Pain control #CKD Related Anemia Hgb with good responses/p transfusion continue ARI with HD Massimo Melissa DO
[2016-07-29] MEDS: ATORVASTATIN CA 10 MG TABLET (FP) PO SCH (21:25)
[2016-07-29] MEDS: ONDANSETRON 4 MG/2 ML VIAL IVPB PRN (23:06)
[2016-07-30] MEDS: methylPREDNISolone NA SUCC 125 MG/2 ML VIAL IVPB SCH ×3 (01:49→17:33)
[2016-07-30] MEDS: oxyCODONE HCL 5 MG TABLET PO PRN ×2 (01:53→22:41)
[2016-07-30] MEDS: ALBUTEROL SO4 2.5/IPRATROPIUM 0.5 INH SOL 3 ML VIAL.NEB. NEB SCH ×3 (06:18→16:50)
[2016-07-30] MEDS ORDERED: INSULIN (NOVOLOG) ASPART 100 UNITS/ML 10ML VIAL ONE ×4 (06:28→20:52)
[2016-07-30] MEDS: INSULIN SLIDING SCALE (NOVOLOG) 1 VIAL SQ SCH ×4 (06:29→21:08)
[2016-07-30 08:41] LABS: CALCIUM 8.3 mg/dL (8.5-10.1); CREATININE 2.8 mg/dL (0.55-1.02); PHOSPHOROUS 3.7 mg/dL (2.5-4.9)
[2016-07-30] MEDS ORDERED: PT OWN MED DRAWER 7, Y5N ONE (09:58)
[2016-07-30] MEDS: NYSTATIN 100,000 UNIT/GM TOPICAL CREAM 15 GM TUBE TP SCH ×2 (10:06→21:49)
[2016-07-30] MEDS: DOCUSATE SODIUM 100 MG CAPSULE (FP) PO SCH ×3 (10:06→21:44)
[2016-07-30] MEDS: APIXABAN 2.5 MG TABLET PO SCH ×3 (10:06→21:44)
[2016-07-30] MEDS: FUROSEMIDE 40 MG TABLET (FP) PO SCH ×2 (10:06→10:45)
[2016-07-30] MEDS: POLYETHYLENE GLYCOL 3350 119 GM BTL PO SCH ×2 (10:06→21:45)
[2016-07-30] MEDS: VITAMIN B COMP W-C 1 EA TABLET PO SCH ×2 (10:06→10:45)
[2016-07-30] MEDS: CHOLECALCIFEROL (VITAMIN D3) 1,000 UNIT TABLET (FP) PO SCH ×2 (10:07→10:45)
--- NOTE | 2016-07-30 10:53 | PN ---
Progress Note (short form) - Note Progress Note: PULMONARY More short of breath this AM. Was vomiting with coughing earlier. No fevers or chills. No chest pain or palpitations. Last Vital Signs Temp Pulse Resp BP Pulse Ox 97.8 F 99 H 20 140/53 96 07/30/16 06:00 07/30/16 06:00 07/30/16 06:00 07/30/16 06:00 07/29/16 20:29 Gen: tachypneic at rest Heart: RRR Lung: bilateral wheezes, rhonchi Abd: soft, nontender Ext: + edema CBC, BMP 07/29/16 11:50 07/30/16 06:20 Active Medications Acetaminophen (Tylenol -) 650 mg PO Q4H PRN PRN Reason: FEVER OR PAIN Last Admin: 07/26/16 23:10 Dose: 650 mg Albuterol/Ipratropium (Duoneb -) 1 amp NEB Q4H PRN PRN Reason: SHORTNESS OF BREATH Last Admin: 07/28/16 21:30 Dose: 1 amp Albuterol/Ipratropium (Duoneb -) 1 amp NEB QIDR [facility] Last Admin: 07/30/16 06:18 Dose: 1 amp Apixaban (Eliquis -) 2.5 mg PO BID [facility] Last Admin: 07/30/16 10:44 Dose: Not Given Atorvastatin Calcium (Lipitor -) 10 mg PO HS [facility] Last Admin: 07/29/16 21:25 Dose: 10 mg Cholecalciferol (Vitamin D3 -) 1,000 unit PO DAILY [facility] Last Admin: 07/30/16 10:45 Dose: Not Given Docusate Sodium (Colace -) 100 mg PO BID [facility] Last Admin: 07/30/16 10:19 Dose: Not Given Furosemide (Lasix -) 80 mg PO DAILY [facility] Last Admin: 07/30/16 10:45 Dose: Not Given Furosemide (Lasix Injection -) 40 mg IVPUSH ONCE ONE Stop: 07/30/16 10:49 Ertapenem 0.5 gm/ Sodium (Chloride) 50 mls @ 50 mls/hr IVPB DAILY [facility] PRN Reason: Protocol Last Admin: 07/29/16 13:18 Dose: Not Given Pantoprazole Sodium (Protonix 40mg Ivpb (Pre-Docked)) 100 mls @ 200 mls/hr IVPB BID [facility] Insulin Aspart (Novolog Vial Sliding Scale -) 1 vial SQ ACHS [facility] PRN Reason: Protocol Last Admin: 07/30/16 10:16 Dose: 3 units Loratadine (Claritin -) 10 mg PO DAILY PRN PRN Reason: allergy Methylprednisolone Sodium Succinate (Solu-Medrol -) 80 mg IVPB Q8H-IV [facility] Last Admin: 07/30/16 10:06 Dose: 80 mg Multivit/Ca Carb/B Cmplx/FA/Prenat (Nephro-Annie -) 1 tablet PO DAILY [facility] Last Admin: 07/30/16 10:45 Dose: Not Given Nystatin (Mycostatin Cream -) 1 applic TP BID [facility] Last Admin: 07/30/16 10:06 Dose: 1 applic Ondansetron HCl (Zofran Injection) 4 mg IVPB Q6H PRN PRN Reason: NAUSEA Last Admin: 07/29/16 23:06 Dose: 4 mg Oxycodone HCl (Roxicodone -) 10 mg PO Q4H PRN PRN Reason: PAIN Last Admin: 07/30/16 01:53 Dose: 10 mg Polyethylene Glycol (Miralax (For Daily Use) -) 17 gm PO BID [facility] Last Admin: 07/30/16 10:06 Dose: Not Given A/P Acute Respiratory Distress r/o Aspiration ESBL E Coli Bacteremia Acute COPD Exacerbation ESRD on HD Morbid Obesity GEORGE Atrial Fibrillation HTN DM - stat CXR - continue medrol at current dose - inhaled bronchodilators - continue antibiotics - may need BiPAP to assist in work of breathing - aspiration precautions - HD per renal - rate control - continue anticoagulation - may need to transfer to monitored setting if respiratory rate does not improve
--- NOTE | 2016-07-30 10:58 | PN ---
Progress Note, Physician Chief Complaint: Ms Mcdonnell is not feeling well today. Has been throwing up all night and now is short of breath. Vomit dark colored. Unsure when she had last bowel movement but per nursing last one was earlier this morning. - Current Medication List Current Medications: Active Medications Acetaminophen (Tylenol -) 650 mg PO Q4H PRN PRN Reason: FEVER OR PAIN Last Admin: 07/26/16 23:10 Dose: 650 mg Albuterol/Ipratropium (Duoneb -) 1 amp NEB Q4H PRN PRN Reason: SHORTNESS OF BREATH Last Admin: 07/28/16 21:30 Dose: 1 amp Albuterol/Ipratropium (Duoneb -) 1 amp NEB QIDR [facility] Last Admin: 07/30/16 06:18 Dose: 1 amp Apixaban (Eliquis -) 2.5 mg PO BID [facility] Last Admin: 07/30/16 10:44 Dose: Not Given Atorvastatin Calcium (Lipitor -) 10 mg PO HS [facility] Last Admin: 07/29/16 21:25 Dose: 10 mg Cholecalciferol (Vitamin D3 -) 1,000 unit PO DAILY [facility] Last Admin: 07/30/16 10:45 Dose: Not Given Docusate Sodium (Colace -) 100 mg PO BID [facility] Last Admin: 07/30/16 10:19 Dose: Not Given Furosemide (Lasix -) 80 mg PO DAILY [facility] Last Admin: 07/30/16 10:45 Dose: Not Given Furosemide (Lasix Injection -) 40 mg IVPUSH ONCE ONE Stop: 07/30/16 10:49 Ertapenem 0.5 gm/ Sodium (Chloride) 50 mls @ 50 mls/hr IVPB DAILY [facility] PRN Reason: Protocol Last Admin: 07/29/16 13:18 Dose: Not Given Pantoprazole Sodium (Protonix 40mg Ivpb (Pre-Docked)) 100 mls @ 200 mls/hr IVPB BID [facility] Insulin Aspart (Novolog Vial Sliding Scale -) 1 vial SQ ACHS [facility] PRN Reason: Protocol Last Admin: 07/30/16 10:16 Dose: 3 units Loratadine (Claritin -) 10 mg PO DAILY PRN PRN Reason: allergy Methylprednisolone Sodium Succinate (Solu-Medrol -) 80 mg IVPB Q8H-IV [facility] Last Admin: 07/30/16 10:06 Dose: 80 mg Multivit/Ca Carb/B Cmplx/FA/Prenat (Nephro-Annie -) 1 tablet PO DAILY [facility] Last Admin: 07/30/16 10:45 Dose: Not Given Nystatin (Mycostatin Cream -) 1 applic TP BID [facility] Last Admin: 07/30/16 10:06 Dose: 1 applic Ondansetron HCl (Zofran Injection) 4 mg IVPB Q6H PRN PRN Reason: NAUSEA Last Admin: 07/29/16 23:06 Dose: 4 mg Oxycodone HCl (Roxicodone -) 10 mg PO Q4H PRN PRN Reason: PAIN Last Admin: 07/30/16 01:53 Dose: 10 mg Polyethylene Glycol (Miralax (For Daily Use) -) 17 gm PO BID [facility] Last Admin: 07/30/16 10:06 Dose: Not Given - Objective Vital Signs: Vital Signs Temperature 97.8 F 07/30/16 06:00 Pulse Rate 99 H 07/30/16 06:00 Respiratory Rate 20 07/30/16 06:00 Blood Pressure 140/53 07/30/16 06:00 O2 Sat by Pulse Oximetry (%) 96 07/29/16 20:29 Constitutional: Yes: Anxious, Moderate Distress Cardiovascular: Yes: Regular Rate and Rhythm. No: Gallop, Murmur, Rub Respiratory: Yes: On Nasal O2, Tachypnea, Wheezes. No: Rales, Rhonchi Gastrointestinal: Yes: Distention, Hypoactive Bowel Sounds. No: Soft Extremities: Yes: WNL Edema: Yes Edema: LLE: 2+, RLE: 2+ Labs: CBC, BMP 07/29/16 11:50 07/30/16 06:20 INR, PTT INR 1.18 (0.82-1.09) H 07/10/16 07:40 Problem List - Problems (1) Hip fracture Code(s): S72.009A - FRACTURE OF UNSP PART OF NECK OF UNSP FEMUR, INIT Qualifiers: Qualified Code(s): S72.001A - Fracture of unspecified part of neck of right femur, initial encounter for closed fracture (2) (HFpEF) heart failure with preserved ejection fraction Code(s): I50.9 - HEART FAILURE, UNSPECIFIED (3) Bilateral leg edema Code(s): R60.0 - LOCALIZED EDEMA (4) Diabetes Code(s): E11.9 - TYPE 2 DIABETES MELLITUS WITHOUT COMPLICATIONS (5) HTN (hypertension) Code(s): I10 - ESSENTIAL (PRIMARY) HYPERTENSION (6) Hyperkalemia Code(s): E87.5 - HYPERKALEMIA (7) End stage renal failure on dialysis Code(s): N18.6 - END STAGE RENAL DISEASE Z99.2 - DEPENDENCE ON RENAL DIALYSIS (8) Obesity Code(s): E66.9 - OBESITY, UNSPECIFIED (9) Anemia Code(s): D64.9 - ANEMIA, UNSPECIFIED (10) Hyponatremia Code(s): E87.1 - HYPO-OSMOLALITY AND HYPONATREMIA (11) UTI (urinary tract infection) Code(s): N39.0 - URINARY TRACT INFECTION, SITE NOT SPECIFIED Assessment/Plan (1) Vomiting -patient now with dark emesis -H/H stable -concerning for bleeding since emesis dark -stomach distended but unchanged, same with firmness but not painful -will consult GI for possible bleeding -protonix 40mg IV bid -obtain KUB to evaluate for possible obstruction -monitor H/H (2) SOB -patient says she is feeling worse today -chest x-ray to evaluate for possible aspiration -pulmonary following (3) Hip fracture Assessment/Plan: -pain controlled -continue oxycodone -SNF placement when medically stable Code(s): S72.009A - FRACTURE OF UNSP PART OF NECK OF UNSP FEMUR, INIT Qualifiers: Encounter type: initial encounter Fracture type: closed Laterality : right Qualified Code(s): S72.001A - Fracture of unspecified part of neck of right femur, initial encounter for closed fracture (4) (HFpEF) heart failure with preserved ejection fraction Assessment/Plan: -leg edema unchanged -will give dose of IV lasix since currently cannot take pills -plan for HD tomorrow Code(s): I50.9 - HEART FAILURE, UNSPECIFIED (5) Bilateral leg edema Assessment/Plan: -stable Code(s): R60.0 - LOCALIZED EDEMA (6) Diabetes Assessment/Plan: -diabetic/renal diet Code(s): E11.9 - TYPE 2 DIABETES MELLITUS WITHOUT COMPLICATIONS (7) HTN (hypertension) Assessment/Plan: -well controlled -continue lasix Code(s): I10 - ESSENTIAL (PRIMARY) HYPERTENSION (8) Hyperkalemia Assessment/Plan: -resolved with HD Code(s): E87.5 - HYPERKALEMIA (9) End stage renal failure on dialysis Assessment/Plan: -continue HD per nephrology Code(s): N18.6 - END STAGE RENAL DISEASE Z99.2 - DEPENDENCE ON RENAL DIALYSIS (10) Obesity Code(s): E66.9 - OBESITY, UNSPECIFIED Qualifiers: Obesity severity: morbid (11) Hyponatremia -much improved with fluid restriction (12) Sepsis -appreciate ID assistance -continue ertapenem (13) Anemia -secondary to renal function -continue epo per nephrology -s/p transfusion (14) Severe constipation -last bowel movement this morning, obstruction not as likely but still possible -obtain KUB to evaluate
[2016-07-30] MEDS ORDERED: FUROSEMIDE 40 MG/4 ML INJECTABLE VIAL IVPUSH ONE (11:00)
[2016-07-30] MEDS: PANTOPRAZOLE SODIUM 100 ML IVPB SCH ×2 (11:29→21:48)
[2016-07-30] MEDS: ERTAPENEM SODIUM 0.5 GM in SODIUM CHLORIDE 50 ML IVPB SCH (14:39)
--- NOTE | 2016-07-30 15:19 | PN ---
Progress Note (short form) - Note Progress Note: remains SOB unable to lay flat vomiting overnight now with nausea Vital Signs Period Temp Pulse Resp BP Sys/Adams Pulse Ox Last 24 Hr 97.2 F-98.0 F 72-102 18-22 92-140/47-77 96-98 cor-rrr lungs decreased bs at bases abd tympanitic, firm, ext +edema hip incision with serous drainage +geovanni CBC, BMP 07/29/16 11:50 07/30/16 06:20 Microbiology 07/29/16 12:30 Blood - Pre-Dialysis Blood Culture - Preliminary NO GROWTH OBTAINED AFTER 24 HOURS, INCUBATION TO CONTINUE FOR 4 DAYS. 07/29/16 12:00 Blood - Pre-Dialysis Blood Culture - Preliminary NO GROWTH OBTAINED AFTER 24 HOURS, INCUBATION TO CONTINUE FOR 4 DAYS. a/p ecoli esbl bacteremia- continue ertapenem day #7 ct scan when she is able to lay flat esrd/hd volume overload- continues with daily ultrafiltration, family and patient aware of need for fluid restriction s/p hip/humerus fracture repeat blood cultures with HD today d/w renal abdominal distention- gi consult pending leukocytosis secondary to steroids overall prognosis poor
--- NOTE | 2016-07-30 16:01 | PN ---
Progress Note (short form) - Note Progress Note: consult dictated
--- NOTE | 2016-07-30 16:15 | PN ---
Progress Note (short form) - Note Progress Note: full consult dictated 85F with gastric dietention and vomiting in setting of hyperglycemia / opiatae analgesia / immobility / sepsis Non tender on exam + tympany upper abdomen Imp: Suspect gastroparesis / ileus . Gastric outlet obstruction cannot be full excluded Plan: Discussed options: Conservative measures (clear liquid diet, observation) vs. NGT placement for decompression. They were very concerned regarding NGT placement, especially when I explained that nose bleed could occur, partucularly while on anticoagulation. they opted for conservative measures. AXR in AM Would defer reglan at this time until gastric outlet obstruction excluded
--- NOTE | 2016-07-30 18:25 | CONS ---
DATE OF CONSULTATION: DATE OF DICTATION: 07/30/2016 GASTROINTESTINAL CONSULTATION REQUESTING PHYSICIAN: Ministerio Lozoya M.D. HISTORY OF PRESENT ILLNESS: Patient is an 85-year-old female with multiple medical problems, initially admitted through [facility] emergency room on July 09. She had experienced an unwitnessed mechanical fall. She was noted to have a right hip fracture. She underwent right hip gamma nail with intramedullary elisa placement and was then evaluated by infectious disease July 16, 2016, for leukocytosis. She was noted to have gram negative bacteremia, being treated with antibiotics by infectious disease. The bacteriuria was noted to be E. coli ESBL in the blood, and she is currently on ertapenem. She is also being treated for volume overload and continues with daily ultrafiltration. She also was noted to have a humerus fracture as well. She vomited today. She had abdominal x-ray today revealing an air filled distended stomach, no evidence of dilated loops of small bowel or colon, and I have been asked to evaluate further. I have evaluated the patient in the past, last time was in April of 2014. It was in that note that I noted the patient had been evaluated by my colleague, Dr. Brando Mendieta, in 2007. Apparently she was being treated for chronic constipation at that time. She had a colonoscopy done in 2005 that revealed hyperplastic polyps. EGD in 2005 revealed only atrophic gastritis. In 2008, she underwent colonoscopy that revealed a sessile polyp in the cecum, 4 polyps in the sigmoid colon, Lashonda ink marking in the proximal transverse colon, mild diverticulosis in the left colon, and large and friable hemorrhoids. Pathology from her colonoscopy in 2008 revealed a tubular adenoma of the cecum and sigmoid polyps were noted to be hyperplastic. She did have a bowel movement today. There has been no reported rectal bleeding. There has been no reported hematemesis. PAST MEDICAL HISTORY: Includes hypertension, chronic atrial fibrillation, CHF, diabetes mellitus type 2, status post total abdominal hysterectomy, bilateral salpingoophorectomy, arthroscopic right shoulder surgery status post rotator cuff repair, x4, status post cholecystectomy, appendectomy, history of chronic shortness of breath, right knee replacement, umbilical hernia repair, obstructive sleep apnea, coronary artery disease, cardiac stent placement, and gamma knife treatment of a right hip fracture July 2016. PAST SURGICAL HISTORY: As noted in the past medical history. FAMILY HISTORY: Father , he had a history of colon cancer. SOCIAL HISTORY: No history of ETOH, tobacco, intravenous drug abuse or illicit drugs. REVIEW OF SYSTEMS: She does have shortness of breath, worse when lying down. No weight loss. She denies any abdominal pain. She does complain of nausea. There was vomiting previously. PHYSICAL EXAMINATION: General: The patient is found lying in her bed. Her family was present at bedside. HEENT: Sclerae are anicteric. Neck: Supple. Cardiovascular: Tachycardic rate with regular rhythm. No murmurs appreciated. Lungs: Decreased breath sounds at the bases bilaterally. Abdomen: Somewhat protuberant. She had normoactive bowel sounds, they are somewhat higher pitched. She did have tympany noted upon percussion of the upper abdomen. There is no tenderness elicited. Extremities: 2+ lower extremity edema as well as chronic venous stasis changes bilaterally left greater than right. LABORATORY EVALUATION: White blood count 16.9, hemoglobin 10.3, hematocrit 32.1, platelets of 326, INR 1.18. Sodium 140, potassium 3.8, chloride 97, bicarbonate 33, BUN 37, creatinine 2.8, glucose 274, calcium 8.3. AST 18, ALT 9, alkaline phosphatase 201, total bilaterally 0.3 with an albumin of 1.9. RADIOLOGY REPORTS: Abdominal x-ray is noted on the history of present illness. IMPRESSION: An 85-year-old female multiple medical problems now with a prolonged hospitalization which stemmed initially from a right hip fracture. I suspect that her vomiting and likely the distention of her stomach may be secondary to gastroparesis given her limited mobility, opiate analgesia, and her hyperglycemia which has been occurring, which has worsened since initiation of corticosteroids. The possibility of a gastric outlet obstruction could not be excluded at this point; however, overall she has been just recently started and discussed this with the patient and family at bedside. We discussed options. I said 1 option would be placement of an NG tube to decompress her stomach and see if this aids in her nausea and to potentially be used to take further imaging studies of her upper intestinal tract. They did ask about potential risks. I did discuss the risk of nosebleeds, especially in the setting of anticoagulation as she is on Eliquis. We also discussed that the NG tube could potentially go into the bronchi upon attempt at placement and may need to be readjusted. At this point, the patient and her family would like to attempt conservative measures as opposed to NG tube placement. I did explain to her that if vomiting persists, this will still need to be considered. We discussed, and this may be done to decrease the risk of bleeding with the Eliquis on hold. For now we will attempt conservative measures of clear liquid diet and will repeat abdominal x-ray in the morning as well as dosing. I would not dose Reglan until gastric outlet obstruction has been excluded. I thank you for this consultative opportunity. ZULEMA YWNN DO [id number]
--- NOTE | 2016-07-30 18:42 | PN ---
Progress Note (short form) - Note Progress Note: Renal Follow up for ESRD on HD Pt seen and examined during dialysis BP stable, goal uF is 3L pt feels better today no chest pain/Abd pain. + mild sob Vital Signs Temperature 97.2 F L 07/29/16 17:30 Pulse Rate 101 H 07/29/16 17:30 Respiratory Rate 18 07/29/16 17:30 Blood Pressure 92/47 07/29/16 17:30 O2 Sat by Pulse Oximetry (%) 100 07/29/16 09:00 Intake & Output 07/26/16 07/27/16 07/28/16 07/29/16 23:59 23:59 23:59 23:59 Intake Total 650 230 380 100 Output Total 0 Balance 650 230 380 100 Weight 205 lb 1.6 oz 204 lb 4 oz 204 lb 8 oz 205 lb 8 oz Gen: NAD, awake and alert CVS: irregular, no M/R Lungs: Dec BS Lung bases, no rales Abd: soft NT/ND Ext: Trace to 1+ edema in LE Access: Left ARM AVF CBC, BMP 07/29/16 11:50 07/29/16 11:50 Current Medications Acetaminophen (Tylenol -) 650 mg PO Q4H PRN PRN Reason: FEVER OR PAIN Last Admin: 07/26/16 23:10 Dose: 650 mg Albuterol/Ipratropium (Duoneb -) 1 amp NEB Q4H PRN PRN Reason: SHORTNESS OF BREATH Last Admin: 07/28/16 21:30 Dose: 1 amp Albuterol/Ipratropium (Duoneb -) 1 amp NEB QIDR [facility] Last Admin: 07/29/16 11:00 Dose: 1 amp Apixaban (Eliquis -) 2.5 mg PO BID [facility] Last Admin: 07/29/16 16:38 Dose: 2.5 mg Atorvastatin Calcium (Lipitor -) 10 mg PO HS [facility] Last Admin: 07/28/16 22:54 Dose: 10 mg Cholecalciferol (Vitamin D3 -) 1,000 unit PO DAILY [facility] Last Admin: 07/29/16 16:39 Dose: 1,000 unit Docusate Sodium (Colace -) 100 mg PO BID [facility] Last Admin: 07/29/16 13:18 Dose: Not Given Furosemide (Lasix -) 80 mg PO DAILY [facility] Last Admin: 07/29/16 16:38 Dose: 80 mg Ertapenem 0.5 gm/ Sodium (Chloride) 50 mls @ 50 mls/hr IVPB DAILY [facility] PRN Reason: Protocol Last Admin: 07/29/16 13:18 Dose: Not Given Insulin Aspart (Novolog Vial Sliding Scale -) 1 vial SQ ACHS [facility] PRN Reason: Protocol Last Admin: 07/29/16 16:45 Dose: 3 units Loratadine (Claritin -) 10 mg PO DAILY PRN PRN Reason: allergy Methylprednisolone Sodium Succinate (Solu-Medrol -) 80 mg IVPB Q8H-IV [facility] Last Admin: 07/29/16 13:19 Dose: Not Given Multivit/Ca Carb/B Cmplx/FA/Prenat (Nephro-Annie -) 1 tablet PO DAILY [facility] Last Admin: 07/29/16 16:38 Dose: 1 tablet Nystatin (Mycostatin Cream -) 1 applic TP BID [facility] Last Admin: 07/29/16 13:19 Dose: Not Given Ondansetron HCl (Zofran Injection) 4 mg IVPB Q6H PRN PRN Reason: NAUSEA Oxycodone HCl (Roxicodone -) 10 mg PO Q4H PRN PRN Reason: PAIN Last Admin: 07/28/16 23:13 Dose: 10 mg Polyethylene Glycol (Miralax (For Daily Use) -) 17 gm PO BID [facility] Last Admin: 07/29/16 13:19 Dose: Not Given A/P 85 year old woman with PMhx of ESRD on HD (MWF), Afib on A/C, HTN, CAD s/p stents, CHF, DM who presented s/p fall with multiple fractures. #ESRD on HD/Fluid overload Volume status ok, still with total body volume overload no urgent need for HD today Next hd planned for tomorrow with UF as tolerated #Abd distension/Nausea and Vomiting Abd X-ray shows gastric distension NGT decompression GI follow up NPO #Fever/Gram Negative Bacteria Continue Abx as per ID #Intertrochanteric hip fx/Humerus Fracture s/p Gamma Nail Arm in immobilizer Pain control #CKD Related Anemia Hgb with good responses/p transfusion continue ARI with HD Massimo Melissa DO
[2016-07-30 18:45] LABS: MCH 31.8 pg (25.7-33.7); MCHC 31.9 g/dl (32.0-36.0); MEAN CELL VOLUME 99.9 fl (80-96); MEAN PLT VOLUME 8.4 fl (7.5-11.1); PLATELET COUNT 401 K/MM3 (134-434); RDW 17.1 % (11.6-15.6); WHITE BLOOD COUNT 18.8 K/mm3 (4.0-10.0)
[2016-07-30] MEDS: ATORVASTATIN CA 10 MG TABLET (FP) PO SCH (21:44)
[2016-07-30] MEDS: ONDANSETRON 4 MG/2 ML VIAL IVPB PRN (21:48)
[2016-07-31] MEDS: methylPREDNISolone NA SUCC 125 MG/2 ML VIAL IVPB SCH ×2 (02:05→12:20)
[2016-07-31] MEDS ORDERED: INSULIN (NOVOLOG) ASPART 100 UNITS/ML 10ML VIAL ONE ×3 (06:26→23:21)
[2016-07-31] MEDS: INSULIN SLIDING SCALE (NOVOLOG) 1 VIAL SQ SCH ×4 (06:27→23:20)
[2016-07-31] MEDS: ALBUTEROL SO4 2.5/IPRATROPIUM 0.5 INH SOL 3 ML VIAL.NEB. NEB SCH ×4 (07:04→18:25)
[2016-07-31 07:23] LABS: BASOPHIL 0.1 % (0-2.0); MCH 31.9 pg (25.7-33.7); MCHC 31.7 g/dl (32.0-36.0); MEAN CELL VOLUME 100.7 fl (80-96); MEAN PLT VOLUME 8.4 fl (7.5-11.1); NEUTROPHILS 95.3 % (42.8-82.8); PLATELET COUNT 371 K/MM3 (134-434); RDW 17.4 % (11.6-15.6); WHITE BLOOD COUNT 17.4 K/mm3 (4.0-10.0)
[2016-07-31 07:44] LABS: CALCIUM 7.8 mg/dL (8.5-10.1); CREATININE 3.9 mg/dL (0.55-1.02); PHOSPHOROUS 4.3 mg/dL (2.5-4.9)
[2016-07-31] MEDS: ONDANSETRON 4 MG/2 ML VIAL IVPB PRN ×2 (10:31→23:13)
[2016-07-31] MEDS: DOCUSATE SODIUM 100 MG CAPSULE (FP) PO SCH ×2 (11:30→23:09)
[2016-07-31] MEDS: NYSTATIN 100,000 UNIT/GM TOPICAL CREAM 15 GM TUBE TP SCH ×2 (11:30→23:20)
[2016-07-31] MEDS: CHOLECALCIFEROL (VITAMIN D3) 1,000 UNIT TABLET (FP) PO SCH (11:30)
[2016-07-31] MEDS: POLYETHYLENE GLYCOL 3350 119 GM BTL PO SCH ×2 (11:30→23:20)
[2016-07-31] MEDS: FUROSEMIDE 40 MG TABLET (FP) PO SCH (11:30)
[2016-07-31] MEDS: APIXABAN 2.5 MG TABLET PO SCH (11:30)
[2016-07-31] MEDS: PANTOPRAZOLE SODIUM 100 ML IVPB SCH (11:31)
[2016-07-31] MEDS: VITAMIN B COMP W-C 1 EA TABLET PO SCH (11:32)
--- NOTE | 2016-07-31 13:11 | PN ---
Progress Note (short form) - Note Progress Note: PULMONARY NAUSEA WITH VOMITING AWAKE/ALERT/SMILING PALE/CHRONICALLY ILL IN APPEARANCE DISTANT BREATH SOUNDS S1S2 DISTENDED LESS EDEMA LABS/MEDS/NOTES/IMAGING/MICRO REVIEWED ESBL BACTEREMIA OSAS/M.OBESITY HTN/AF/IDDM S/P RIGHT GAMMA NAIL 07/2016 O2/BRONCHODILATORS/NIPPV NEEDED/TAPER STEROIDS WILL FOLLOW HD PER RENAL R PATRICE LOPEZ Problem List - Problems (1) Hip fracture Code(s): S72.009A - FRACTURE OF UNSP PART OF NECK OF UNSP FEMUR, INIT Qualifiers: Encounter type: initial encounter Fracture type: closed Laterality : right Qualified Code(s): S72.001A - Fracture of unspecified part of neck of right femur, initial encounter for closed fracture (2) UTI (urinary tract infection) Code(s): N39.0 - URINARY TRACT INFECTION, SITE NOT SPECIFIED (3) (HFpEF) heart failure with preserved ejection fraction Code(s): I50.9 - HEART FAILURE, UNSPECIFIED (4) Acute exacerbation of CHF (congestive heart failure) Code(s): I50.9 - HEART FAILURE, UNSPECIFIED (5) [id number] kidney injury Code(s): N17.9 - ACUTE KIDNEY FAILURE, UNSPECIFIED N18.9 - CHRONIC KIDNEY DISEASE, UNSPECIFIED (6) Bacteremia Code(s): R78.81 - BACTEREMIA
--- NOTE | 2016-07-31 13:54 | PN ---
Progress Note, Physician Chief Complaint: Ms Mcdonnell says she is feeling better today but still with nausea. Tolerating liquid diet. No cp, sob improved today. - Current Medication List Current Medications: Active Medications Acetaminophen (Tylenol -) 650 mg PO Q4H PRN PRN Reason: FEVER OR PAIN Last Admin: 07/26/16 23:10 Dose: 650 mg Albuterol/Ipratropium (Duoneb -) 1 amp NEB Q4H PRN PRN Reason: SHORTNESS OF BREATH Last Admin: 07/28/16 21:30 Dose: 1 amp Albuterol/Ipratropium (Duoneb -) 1 amp NEB QIDR [facility] Last Admin: 07/31/16 11:11 Dose: 1 amp Apixaban (Eliquis -) 2.5 mg PO BID [facility] Last Admin: 07/31/16 11:30 Dose: 2.5 mg Atorvastatin Calcium (Lipitor -) 10 mg PO HS [facility] Last Admin: 07/30/16 21:44 Dose: Not Given Cholecalciferol (Vitamin D3 -) 1,000 unit PO DAILY [facility] Last Admin: 07/31/16 11:30 Dose: 1,000 unit Docusate Sodium (Colace -) 100 mg PO BID [facility] Last Admin: 07/31/16 11:30 Dose: 100 mg Epoetin Abraham (Procrit -) 10,000 unit IVPUSH ONCE ONE Stop: 07/31/16 09:01 Furosemide (Lasix -) 80 mg PO DAILY [facility] Last Admin: 07/31/16 11:30 Dose: 80 mg Ertapenem 0.5 gm/ Sodium (Chloride) 50 mls @ 50 mls/hr IVPB DAILY [facility] PRN Reason: Protocol Last Admin: 07/30/16 14:39 Dose: 50 mls/hr Pantoprazole Sodium (Protonix 40mg Ivpb (Pre-Docked)) 100 mls @ 200 mls/hr IVPB BID [facility] Last Admin: 07/31/16 11:31 Dose: 200 mls/hr Insulin Aspart (Novolog Vial Sliding Scale -) 1 vial SQ ACHS [facility] PRN Reason: Protocol Last Admin: 07/31/16 12:33 Dose: 9 units Insulin Detemir (Levemir Vial) 10 units SQ HS [facility] Loratadine (Claritin -) 10 mg PO DAILY PRN PRN Reason: allergy Methylprednisolone Sodium Succinate (Solu-Medrol -) 40 mg IVPB Q8H-IV [facility] Multivit/Ca Carb/B Cmplx/FA/Prenat (Nephro-Annie -) 1 tablet PO DAILY [facility] Last Admin: 07/31/16 11:32 Dose: 1 tablet Nystatin (Mycostatin Cream -) 1 applic TP BID [facility] Last Admin: 07/31/16 11:30 Dose: 1 applic Ondansetron HCl (Zofran Injection) 4 mg IVPB Q6H PRN PRN Reason: NAUSEA Last Admin: 07/31/16 10:31 Dose: 4 mg Oxycodone HCl (Roxicodone -) 10 mg PO Q4H PRN PRN Reason: PAIN Last Admin: 07/30/16 22:41 Dose: 10 mg Polyethylene Glycol (Miralax (For Daily Use) -) 17 gm PO BID [facility] Last Admin: 07/31/16 11:30 Dose: Not Given - Objective Vital Signs: Vital Signs Temperature 97.8 F 07/31/16 12:39 Pulse Rate 103 H 07/31/16 12:39 Respiratory Rate 20 07/31/16 12:39 Blood Pressure 135/75 07/31/16 12:39 O2 Sat by Pulse Oximetry (%) 95 07/31/16 11:10 Constitutional: Yes: No Distress, Calm, Obese Cardiovascular: Yes: Regular Rate and Rhythm. No: Gallop, Murmur, Rub Respiratory: Yes: Regular, CTA Bilaterally, On Nasal O2. No: Rales, Rhonchi, Wheezes Gastrointestinal: Yes: Distention, Hypoactive Bowel Sounds, Other (firm). No: Tenderness Extremities: Yes: WNL Edema: Yes Edema: LLE: 2+, RLE: 2+ Labs: CBC, BMP 07/31/16 06:45 07/31/16 06:45 INR, PTT INR 1.18 (0.82-1.09) H 07/10/16 07:40 Problem List - Problems (1) Hip fracture Code(s): S72.009A - FRACTURE OF UNSP PART OF NECK OF UNSP FEMUR, INIT Qualifiers: Encounter type: initial encounter Fracture type: closed Laterality : right Qualified Code(s): S72.001A - Fracture of unspecified part of neck of right femur, initial encounter for closed fracture (2) (HFpEF) heart failure with preserved ejection fraction Code(s): I50.9 - HEART FAILURE, UNSPECIFIED (3) Bilateral leg edema Code(s): R60.0 - LOCALIZED EDEMA (4) Diabetes Code(s): E11.9 - TYPE 2 DIABETES MELLITUS WITHOUT COMPLICATIONS (5) HTN (hypertension) Code(s): I10 - ESSENTIAL (PRIMARY) HYPERTENSION (6) Hyperkalemia Code(s): E87.5 - HYPERKALEMIA (7) End stage renal failure on dialysis Code(s): N18.6 - END STAGE RENAL DISEASE Z99.2 - DEPENDENCE ON RENAL DIALYSIS (8) Obesity Code(s): E66.9 - OBESITY, UNSPECIFIED Qualifiers: Obesity severity: morbid (9) Anemia Code(s): D64.9 - ANEMIA, UNSPECIFIED (10) Hyponatremia Code(s): E87.1 - HYPO-OSMOLALITY AND HYPONATREMIA (11) UTI (urinary tract infection) Code(s): N39.0 - URINARY TRACT INFECTION, SITE NOT SPECIFIED Assessment/Plan (1) Vomiting -appreciate GI assistance -ileus vs gastroparesis -GI discussed possible NGT, patient declined -trying conservative management -continue to monitor for improvement (2) SOB -improved today -case d/w Dr Renae -steroid taper per pulmonary (3) Hip fracture Assessment/Plan: -pain controlled -continue oxycodone -SNF placement when medically stable Code(s): S72.009A - FRACTURE OF UNSP PART OF NECK OF UNSP FEMUR, INIT Qualifiers: Encounter type: initial encounter Fracture type: closed Laterality : right Qualified Code(s): S72.001A - Fracture of unspecified part of neck of right femur, initial encounter for closed fracture (4) (HFpEF) heart failure with preserved ejection fraction Assessment/Plan: -leg edema unchanged -continue oral lasix -plan for HD tomorrow Code(s): I50.9 - HEART FAILURE, UNSPECIFIED (5) Bilateral leg edema Assessment/Plan: -stable Code(s): R60.0 - LOCALIZED EDEMA (6) Diabetes Assessment/Plan: -diabetic/renal diet -add levemir at night, elevated secondary to steroids Code(s): E11.9 - TYPE 2 DIABETES MELLITUS WITHOUT COMPLICATIONS (7) HTN (hypertension) Assessment/Plan: -well controlled -continue lasix Code(s): I10 - ESSENTIAL (PRIMARY) HYPERTENSION (8) Hyperkalemia Assessment/Plan: -resolved with HD Code(s): E87.5 - HYPERKALEMIA (9) End stage renal failure on dialysis Assessment/Plan: -continue HD per nephrology Code(s): N18.6 - END STAGE RENAL DISEASE Z99.2 - DEPENDENCE ON RENAL DIALYSIS (10) Obesity Code(s): E66.9 - OBESITY, UNSPECIFIED Qualifiers: Obesity severity: morbid (11) Hyponatremia -much improved with fluid restriction (12) Sepsis -appreciate ID assistance -continue ertapenem (13) Anemia -secondary to renal function -continue epo per nephrology -s/p transfusion (14) Severe constipation -continue stool softeners
--- NOTE | 2016-07-31 14:20 | PN ---
Progress Note (short form) - Note Progress Note: less SOB Vital Signs Period Temp Pulse Resp BP Sys/Adams Pulse Ox Last 24 Hr 97.6 F-98.0 F 99-109 20- 118-135/56-76 95-96 cor-rrr lungs decreased bs at bases abd firm +tympanitic ext +EDEMA CBC, BMP 07/31/16 06:45 07/31/16 06:45 Microbiology 07/29/16 12:30 Blood Culture - Preliminary Blood - Pre-Dialysis NO GROWTH OBTAINED AFTER 48 HOURS, INCUBATION TO CONTINUE FOR 3 DAYS. 07/29/16 12:00 Blood Culture - Preliminary Blood - Pre-Dialysis NO GROWTH OBTAINED AFTER 48 HOURS, INCUBATION TO CONTINUE FOR 3 DAYS. a/p ecoli esbl bacteremia- continue ertapenem day #8 ct scan when she is able to lay flat esrd/hd volume overload- continues with daily ultrafiltration, family and patient aware of need for fluid restriction s/p hip/humerus fracture repeat blood cultures negative abdominal distention- leukocytosis secondary to steroids overall prognosis poor
[2016-07-31] MEDS ORDERED: EPOETIN ALFA 10,000 UNIT/1 ML VIAL IVPUSH ONE (17:00)
[2016-07-31 17:13] LABS: MCH 32.1 pg (25.7-33.7); MEAN CELL VOLUME 100.1 fl (80-96); MEAN PLT VOLUME 8.8 fl (7.5-11.1); PLATELET COUNT 415 K/MM3 (134-434); RDW 16.9 % (11.6-15.6); WHITE BLOOD COUNT 16.2 K/mm3 (4.0-10.0)
--- NOTE | 2016-07-31 17:17 | PN ---
Progress Note (short form) - Note Progress Note: Renal Follow up for ESRD on HD Pt seen and examined at the bedside refused NGT continues to have abd distension is NPO no sob or chest pain for dialysis today Vital Signs Temperature 97.6 F 07/31/16 14:00 Pulse Rate 71 07/31/16 16:40 Respiratory Rate 18 07/31/16 16:40 Blood Pressure 121/32 07/31/16 16:40 O2 Sat by Pulse Oximetry (%) 95 07/31/16 11:10 Intake & Output 07/28/16 07/29/16 07/30/16 07/31/16 23:59 23:59 23:59 23:59 Intake Total 380 320 345 370 Output Total 0 0 0 Balance 380 320 345 370 Weight 204 lb 8 oz 205 lb 8 oz 208 lb 2 oz 214 lb Gen: NAD, awake and alert CVS: irregular, no M/R Lungs: Dec BS Lung bases, no rales Abd: soft NT/ND Ext: Trace to 1+ edema in LE Access: Left ARM AVF CBC, BMP 07/31/16 16:30 07/31/16 06:45 Current Medications Acetaminophen (Tylenol -) 650 mg PO Q4H PRN PRN Reason: FEVER OR PAIN Last Admin: 07/26/16 23:10 Dose: 650 mg Albuterol/Ipratropium (Duoneb -) 1 amp NEB Q4H PRN PRN Reason: SHORTNESS OF BREATH Last Admin: 07/28/16 21:30 Dose: 1 amp Albuterol/Ipratropium (Duoneb -) 1 amp NEB QIDR [facility] Last Admin: 07/31/16 11:11 Dose: 1 amp Apixaban (Eliquis -) 2.5 mg PO BID [facility] Last Admin: 07/31/16 11:30 Dose: 2.5 mg Atorvastatin Calcium (Lipitor -) 10 mg PO HS [facility] Last Admin: 07/30/16 21:44 Dose: Not Given Cholecalciferol (Vitamin D3 -) 1,000 unit PO DAILY [facility] Last Admin: 07/31/16 11:30 Dose: 1,000 unit Docusate Sodium (Colace -) 100 mg PO BID [facility] Last Admin: 07/31/16 11:30 Dose: 100 mg Furosemide (Lasix -) 80 mg PO DAILY [facility] Last Admin: 07/31/16 11:30 Dose: 80 mg Ertapenem 0.5 gm/ Sodium (Chloride) 50 mls @ 50 mls/hr IVPB DAILY [facility] PRN Reason: Protocol Last Admin: 07/30/16 14:39 Dose: 50 mls/hr Pantoprazole Sodium (Protonix 40mg Ivpb (Pre-Docked)) 100 mls @ 200 mls/hr IVPB BID [facility] Last Admin: 07/31/16 11:31 Dose: 200 mls/hr Insulin Aspart (Novolog Vial Sliding Scale -) 1 vial SQ ACHS [facility] PRN Reason: Protocol Last Admin: 07/31/16 12:33 Dose: 9 units Insulin Detemir (Levemir Vial) 10 units SQ HS [facility] Loratadine (Claritin -) 10 mg PO DAILY PRN PRN Reason: allergy Methylprednisolone Sodium Succinate (Solu-Medrol -) 40 mg IVPB Q8H-IV [facility] Multivit/Ca Carb/B Cmplx/FA/Prenat (Nephro-Annie -) 1 tablet PO DAILY [facility] Last Admin: 07/31/16 11:32 Dose: 1 tablet Nystatin (Mycostatin Cream -) 1 applic TP BID [facility] Last Admin: 07/31/16 11:30 Dose: 1 applic Ondansetron HCl (Zofran Injection) 4 mg IVPB Q6H PRN PRN Reason: NAUSEA Last Admin: 07/31/16 10:31 Dose: 4 mg Oxycodone HCl (Roxicodone -) 10 mg PO Q4H PRN PRN Reason: PAIN Last Admin: 07/30/16 22:41 Dose: 10 mg Polyethylene Glycol (Miralax (For Daily Use) -) 17 gm PO BID [facility] Last Admin: 07/31/16 11:30 Dose: Not Given A/P 85 year old woman with PMhx of ESRD on HD (MWF), Afib on A/C, HTN, CAD s/p stents, CHF, DM who presented s/p fall with multiple fractures. #ESRD on HD/Fluid overload Dialysis today with UF as tolerated #Abd distension/Nausea and Vomiting Abd X-ray shows gastric distension GI follow up #Fever/Gram Negative Bacteria Continue Abx as per ID repeat blood cultures w/o growth CT pending when pt can lay flat #Intertrochanteric hip fx/Humerus Fracture s/p Gamma Nail Arm in immobilizer Pain control #CKD Related Anemia Hgb with good responses/p transfusion continue ARI with HD Massimo Melissa DO
--- NOTE | 2016-07-31 17:33 | PN ---
GI Progress Note Subjective: No vomiting Some dry heaves No abdominal pain AXR revealed dilated stomach - Objective Vital Signs: Vital Signs Temperature 97.6 F 07/31/16 14:00 Pulse Rate 71 07/31/16 16:40 Respiratory Rate 18 07/31/16 16:40 Blood Pressure 121/32 07/31/16 16:40 O2 Sat by Pulse Oximetry (%) 95 07/31/16 11:10 Constitutional: Calm Eyes: No: Sclera Icterus Cardiovascular: Yes: Pulse Irregular Respiratory: Yes: Diminished (at bases, poor insp effort) Gastrointestinal Inspection: Yes: Distention ...Auscultate: Yes: Normoactive Bowel Sounds ...Percussion: Yes: Tympanitic (upper abdomen, no tenderness but nauseaous when palpating upper abdomen) Neurological: Yes: Alert Labs: CBC, BMP 07/31/16 16:30 07/31/16 06:45 INR, PTT INR 1.18 (0.82-1.09) H 07/10/16 07:40 Problem List - Problems (1) Gastric distention Assessment/Plan: While I didnt cause Ms. Mcdonnell to have abdominal pain on exam today she was quite nauseous after palpation of her upper abdomen. I did again discuss NGT for decompression. I again explained to her daughter that I cannot differentiate whether this is a motility problem at this time vs. obstruction of the stomach. I explained that decompression would help alleviate her mother 's nausea and take pressure off the gastric botello / help prevent perforation. They again want conservative measures attempted without NGT placement. They are concerned about potential risks of NGT placement including nose bleed Clear liquids Hold eliquis in case family and patient consents to NGT to help minimize bleeding risk Code(s): K31.89 - OTHER DISEASES OF STOMACH AND DUODENUM
[2016-07-31] MEDS: ERTAPENEM SODIUM 0.5 GM in SODIUM CHLORIDE 50 ML IVPB SCH (19:16)
[2016-07-31] MEDS ORDERED: INSULIN DETEMIR 100 UNITS/ML MDV SQ SCH (22:00)
[2016-07-31] MEDS: oxyCODONE HCL 5 MG TABLET PO PRN (23:08)
[2016-07-31] MEDS: ATORVASTATIN CA 10 MG TABLET (FP) PO SCH (23:09)
[2016-08-01] MEDS: methylPREDNISolone NA SUCC 40 MG/1 ML VIAL IVPB SCH ×3 (02:03→21:11)
[2016-08-01] MEDS: ALBUTEROL SO4 2.5/IPRATROPIUM 0.5 INH SOL 3 ML VIAL.NEB. NEB SCH ×4 (06:45→18:22)
[2016-08-01] MEDS ORDERED: INSULIN (NOVOLOG) ASPART 100 UNITS/ML 10ML VIAL ONE ×3 (07:06→22:09)
[2016-08-01] MEDS: INSULIN SLIDING SCALE (NOVOLOG) 1 VIAL SQ SCH ×4 (07:07→22:09)
[2016-08-01 07:24] LABS: BASOPHIL 0.1 % (0-2.0); MCH 32.3 pg (25.7-33.7); MCHC 32.1 g/dl (32.0-36.0); MEAN CELL VOLUME 100.6 fl (80-96); MEAN PLT VOLUME 8.2 fl (7.5-11.1); NEUTROPHILS 93.9 % (42.8-82.8); PLATELET COUNT 341 K/MM3 (134-434); RDW 16.8 % (11.6-15.6); WHITE BLOOD COUNT 17.3 K/mm3 (4.0-10.0)
[2016-08-01 08:08] LABS: CALCIUM 7.9 mg/dL (8.5-10.1); CREATININE 2.4 mg/dL (0.55-1.02); MAGNESIUM 1.7 mg/dL (1.8-2.4); PHOSPHOROUS 3.2 mg/dL (2.5-4.9)
[2016-08-01] MEDS ORDERED: PANTOPRAZOLE SODIUM 40 MG in SODIUM CHLORIDE 100 ML IVPB SCH (10:00)
[2016-08-01] MEDS: VITAMIN B COMP W-C 1 EA TABLET PO SCH (10:50)
[2016-08-01] MEDS: DOCUSATE SODIUM 100 MG CAPSULE (FP) PO SCH ×2 (10:50→21:10)
[2016-08-01] MEDS: FUROSEMIDE 40 MG TABLET (FP) PO SCH (10:50)
[2016-08-01] MEDS: CHOLECALCIFEROL (VITAMIN D3) 1,000 UNIT TABLET (FP) PO SCH (10:50)
--- NOTE | 2016-08-01 10:50 | PN ---
Progress Note, Physician Chief Complaint: Ms Mcdonnell says she is feeling worse today. Says she cannot tolerate anything by mouth. Severe nausea. No cp or sob - Current Medication List Current Medications: Active Medications Acetaminophen (Tylenol -) 650 mg PO Q4H PRN PRN Reason: FEVER OR PAIN Last Admin: 07/26/16 23:10 Dose: 650 mg Albuterol/Ipratropium (Duoneb -) 1 amp NEB Q4H PRN PRN Reason: SHORTNESS OF BREATH Last Admin: 07/28/16 21:30 Dose: 1 amp Albuterol/Ipratropium (Duoneb -) 1 amp NEB QIDR [facility] Last Admin: 08/01/16 06:45 Dose: 1 amp Atorvastatin Calcium (Lipitor -) 10 mg PO HS [facility] Last Admin: 07/31/16 23:09 Dose: 10 mg Cholecalciferol (Vitamin D3 -) 1,000 unit PO DAILY [facility] Last Admin: 07/31/16 11:30 Dose: 1,000 unit Docusate Sodium (Colace -) 100 mg PO BID [facility] Last Admin: 07/31/16 23:09 Dose: 100 mg Furosemide (Lasix -) 80 mg PO DAILY [facility] Last Admin: 07/31/16 11:30 Dose: 80 mg Ertapenem 0.5 gm/ Sodium (Chloride) 50 mls @ 50 mls/hr IVPB DAILY [facility] PRN Reason: Protocol Last Admin: 07/31/16 19:16 Dose: Not Given Insulin Aspart (Novolog Vial Sliding Scale -) 1 vial SQ ACHS [facility] PRN Reason: Protocol Last Admin: 08/01/16 07:07 Dose: 3 units Insulin Detemir (Levemir Vial) 10 units SQ HS [facility] Last Admin: 07/31/16 23:19 Dose: 10 units Loratadine (Claritin -) 10 mg PO DAILY PRN PRN Reason: allergy Methylprednisolone Sodium Succinate (Solu-Medrol -) 40 mg IVPB Q8H-IV [facility] Last Admin: 08/01/16 02:03 Dose: 40 mg Multivit/Ca Carb/B Cmplx/FA/Prenat (Nephro-Annie -) 1 tablet PO DAILY [facility] Last Admin: 07/31/16 11:32 Dose: 1 tablet Nystatin (Mycostatin Cream -) 1 applic TP BID [facility] Last Admin: 07/31/16 23:20 Dose: 1 applic Ondansetron HCl (Zofran Injection) 4 mg IVPB Q6H PRN PRN Reason: NAUSEA Last Admin: 07/31/16 23:13 Dose: 4 mg Oxycodone HCl (Roxicodone -) 10 mg PO Q4H PRN PRN Reason: PAIN Last Admin: 07/31/16 23:08 Dose: 10 mg Pantoprazole Sodium (Protonix 40mg Ivpb (Pre-Docked)) 40 mg IVPB DAILY [facility] Polyethylene Glycol (Miralax (For Daily Use) -) 17 gm PO BID [facility] Last Admin: 07/31/16 23:20 Dose: 17 gm - Objective Vital Signs: Vital Signs Temperature 97.7 F 08/01/16 06:00 Pulse Rate 104 H 08/01/16 06:00 Respiratory Rate 08/01/16 06:00 Blood Pressure 106/59 08/01/16 06:00 O2 Sat by Pulse Oximetry (%) 99 07/31/16 22:00 Constitutional: Yes: Anxious, Mild Distress, Obese Cardiovascular: Yes: Regular Rate and Rhythm. No: Gallop, Murmur, Rub Respiratory: Yes: Regular, CTA Bilaterally. No: Rales, Rhonchi, Wheezes Gastrointestinal: Yes: Distention, Hypoactive Bowel Sounds, Tenderness Extremities: Yes: WNL Edema: No Labs: CBC, BMP 08/01/16 05:35 08/01/16 05:35 INR, PTT INR 1.18 (0.82-1.09) H 07/10/16 07:40 Problem List - Problems (1) Hip fracture Code(s): S72.009A - FRACTURE OF UNSP PART OF NECK OF UNSP FEMUR, INIT Qualifiers: Encounter type: initial encounter Fracture type: closed Laterality : right Qualified Code(s): S72.001A - Fracture of unspecified part of neck of right femur, initial encounter for closed fracture (2) (HFpEF) heart failure with preserved ejection fraction Code(s): I50.9 - HEART FAILURE, UNSPECIFIED (3) Bilateral leg edema Code(s): R60.0 - LOCALIZED EDEMA (4) Diabetes Code(s): E11.9 - TYPE 2 DIABETES MELLITUS WITHOUT COMPLICATIONS (5) HTN (hypertension) Code(s): I10 - ESSENTIAL (PRIMARY) HYPERTENSION (6) Hyperkalemia Code(s): E87.5 - HYPERKALEMIA (7) End stage renal failure on dialysis Code(s): N18.6 - END STAGE RENAL DISEASE Z99.2 - DEPENDENCE ON RENAL DIALYSIS (8) Obesity Code(s): E66.9 - OBESITY, UNSPECIFIED Qualifiers: Obesity severity: morbid (9) Anemia Code(s): D64.9 - ANEMIA, UNSPECIFIED (10) Hyponatremia Code(s): E87.1 - HYPO-OSMOLALITY AND HYPONATREMIA (11) UTI (urinary tract infection) Code(s): N39.0 - URINARY TRACT INFECTION, SITE NOT SPECIFIED Assessment/Plan (1) Ileus -worsening today -GI to evaluate, ? NGT (2) SOB -stable -continue current management -steroid taper per pulmonary (3) Hip fracture Assessment/Plan: -pain controlled -continue oxycodone -SNF placement when medically stable Code(s): S72.009A - FRACTURE OF UNSP PART OF NECK OF UNSP FEMUR, INIT Qualifiers: Encounter type: initial encounter Fracture type: closed Laterality : right Qualified Code(s): S72.001A - Fracture of unspecified part of neck of right femur, initial encounter for closed fracture (4) (HFpEF) heart failure with preserved ejection fraction Assessment/Plan: -leg edema unchanged -continue oral lasix -plan for HD tomorrow Code(s): I50.9 - HEART FAILURE, UNSPECIFIED (5) Bilateral leg edema Assessment/Plan: -stable Code(s): R60.0 - LOCALIZED EDEMA (6) Diabetes Assessment/Plan: -diabetic/renal diet -increase levemir to bid secondary to elevated glucose Code(s): E11.9 - TYPE 2 DIABETES MELLITUS WITHOUT COMPLICATIONS (7) HTN (hypertension) Assessment/Plan: -well controlled -continue lasix Code(s): I10 - ESSENTIAL (PRIMARY) HYPERTENSION (8) Hyperkalemia Assessment/Plan: -resolved with HD Code(s): E87.5 - HYPERKALEMIA (9) End stage renal failure on dialysis Assessment/Plan: -continue HD per nephrology Code(s): N18.6 - END STAGE RENAL DISEASE Z99.2 - DEPENDENCE ON RENAL DIALYSIS (10) Obesity Code(s): E66.9 - OBESITY, UNSPECIFIED Qualifiers: Obesity severity: morbid (11) Hyponatremia -much improved with fluid restriction (12) Sepsis -appreciate ID assistance -continue ertapenem (13) Anemia -secondary to renal function -continue epo per nephrology -s/p transfusion (14) Severe constipation -continue stool softeners
[2016-08-01] MEDS: NYSTATIN 100,000 UNIT/GM TOPICAL CREAM 15 GM TUBE TP SCH ×2 (10:51→21:10)
[2016-08-01] MEDS: POLYETHYLENE GLYCOL 3350 119 GM BTL PO SCH ×2 (10:51→21:11)
[2016-08-01] MEDS: PANTOPRAZOLE SODIUM 40 MG/100 ML PRE-DOCKED IVPB SCH (10:52)
[2016-08-01] MEDS: ERTAPENEM SODIUM 0.5 GM in SODIUM CHLORIDE 50 ML IVPB SCH (10:54)
--- NOTE | 2016-08-01 10:56 | PN ---
Progress Note (short form) - Note Progress Note: PULMONARY States breathing is improving. Tolerating clears. No further nausea or vomiting. No fevers or chills. No chest pain or palpitations. + flatus Last Vital Signs Temp Pulse Resp BP Pulse Ox 97.7 F 104 H 22 106/59 99 08/01/16 06:00 08/01/16 06:00 08/01/16 06:00 08/01/16 06:00 07/31/16 22:00 Gen: less tachypneic at rest Heart: RRR Lung: decreased breath sounds at the bases, scattered rhonchi Abd: soft, nontender Ext: + edema CBC, BMP 08/01/16 05:35 08/01/16 05:35 Active Medications Acetaminophen (Tylenol -) 650 mg PO Q4H PRN PRN Reason: FEVER OR PAIN Last Admin: 07/26/16 23:10 Dose: 650 mg Albuterol/Ipratropium (Duoneb -) 1 amp NEB Q4H PRN PRN Reason: SHORTNESS OF BREATH Last Admin: 07/28/16 21:30 Dose: 1 amp Albuterol/Ipratropium (Duoneb -) 1 amp NEB QIDR [facility] Last Admin: 08/01/16 06:45 Dose: 1 amp Atorvastatin Calcium (Lipitor -) 10 mg PO [facility] Last Admin: 07/31/16 23:09 Dose: 10 mg Cholecalciferol (Vitamin D3 -) 1,000 unit PO DAILY [facility] Last Admin: 07/31/16 11:30 Dose: 1,000 unit Docusate Sodium (Colace -) 100 mg PO BID [facility] Last Admin: 07/31/16 23:09 Dose: 100 mg Furosemide (Lasix -) 80 mg PO DAILY [facility] Last Admin: 07/31/16 11:30 Dose: 80 mg Ertapenem 0.5 gm/ Sodium (Chloride) 50 mls @ 50 mls/hr IVPB DAILY [facility] PRN Reason: Protocol Last Admin: 07/31/16 19:16 Dose: Not Given Insulin Aspart (Novolog Vial Sliding Scale -) 1 vial SQ ACHS [facility] PRN Reason: Protocol Last Admin: 08/01/16 07:07 Dose: 3 units Insulin Detemir (Levemir Vial) 10 units SQ [facility] Last Admin: 07/31/16 23:19 Dose: 10 units Loratadine (Claritin -) 10 mg PO DAILY PRN PRN Reason: allergy Methylprednisolone Sodium Succinate (Solu-Medrol -) 40 mg IVPB Q8H-IV [facility] Last Admin: 08/01/16 02:03 Dose: 40 mg Multivit/Ca Carb/B Cmplx/FA/Prenat (Nephro-Annie -) 1 tablet PO DAILY [facility] Last Admin: 07/31/16 11:32 Dose: 1 tablet Nystatin (Mycostatin Cream -) 1 applic TP BID [facility] Last Admin: 07/31/16 23:20 Dose: 1 applic Ondansetron HCl (Zofran Injection) 4 mg IVPB Q6H PRN PRN Reason: NAUSEA Last Admin: 07/31/16 23:13 Dose: 4 mg Oxycodone HCl (Roxicodone -) 10 mg PO Q4H PRN PRN Reason: PAIN Last Admin: 07/31/16 23:08 Dose: 10 mg Pantoprazole Sodium (Protonix 40mg Ivpb (Pre-Docked)) 40 mg IVPB DAILY [facility] Polyethylene Glycol (Miralax (For Daily Use) -) 17 gm PO BID [facility] Last Admin: 07/31/16 23:20 Dose: 17 gm A/P Acute Respiratory Distress Gastric Distention ESBL E Coli Bacteremia Acute COPD Exacerbation ESRD on HD Morbid Obesity GEORGE Atrial Fibrillation HTN DM - dyspnea likely related to gastric distention, discussed with pt and daughter decompression with NGT, they still prefer conservative approach - will decrease medrol to 40mg q12h - inhaled bronchodilators - continue antibiotics - aspiration precautions - HD per renal - rate control - resume anticoagulation when stable
[2016-08-01] MEDS ORDERED: methylPREDNISolone NA SUCC 40 MG/1 ML VIAL IVPB SCH (11:00)
--- NOTE | 2016-08-01 13:59 | PN ---
Progress Note (short form) - Note Progress Note: Renal Follow up for ESRD on HD Pt seen and examined at the bedside continues to have abd distension does not want NGT + sob no chest pain s/p dialysis yesterday Vital Signs Temperature 98.3 F 08/01/16 08:00 Pulse Rate 65 08/01/16 13:20 Respiratory Rate 18 08/01/16 13:20 Blood Pressure 118/86 08/01/16 13:20 O2 Sat by Pulse Oximetry (%) 99 08/01/16 08:00 Intake & Output 07/29/16 07/30/16 07/31/16 08/01/16 23:59 23:59 23:59 23:59 Intake Total 320 345 420 230 Output Total 0 0 0 Balance 320 345 420 230 Weight 205 lb 8 oz 208 lb 2 oz 214 lb 204 lb 6 oz Gen: NAD, awake and alert CVS: irregular, no M/R Lungs: Dec BS Lung bases, no rales Abd: soft NT/ND Ext: Trace to 1+ edema in LE Access: Left ARM AVF CBC, BMP 08/01/16 05:35 08/01/16 05:35 Current Medications Acetaminophen (Tylenol -) 650 mg PO Q4H PRN PRN Reason: FEVER OR PAIN Last Admin: 07/26/16 23:10 Dose: 650 mg Albuterol/Ipratropium (Duoneb -) 1 amp NEB Q4H PRN PRN Reason: SHORTNESS OF BREATH Last Admin: 07/28/16 21:30 Dose: 1 amp Albuterol/Ipratropium (Duoneb -) 1 amp NEB QIDR [facility] Last Admin: 08/01/16 11:30 Dose: Not Given Atorvastatin Calcium (Lipitor -) 10 mg PO [facility] Last Admin: 07/31/16 23:09 Dose: 10 mg Cholecalciferol (Vitamin D3 -) 1,000 unit PO DAILY [facility] Last Admin: 08/01/16 10:50 Dose: 1,000 unit Docusate Sodium (Colace -) 100 mg PO BID [facility] Last Admin: 08/01/16 10:50 Dose: 100 mg Furosemide (Lasix -) 80 mg PO DAILY [facility] Last Admin: 08/01/16 10:50 Dose: 80 mg Ertapenem 0.5 gm/ Sodium (Chloride) 50 mls @ 50 mls/hr IVPB DAILY [facility] PRN Reason: Protocol Last Admin: 08/01/16 10:54 Dose: 50 mls/hr Insulin Aspart (Novolog Vial Sliding Scale -) 1 vial SQ ACHS [facility] PRN Reason: Protocol Last Admin: 08/01/16 11:35 Dose: 11 units Insulin Detemir (Levemir Vial) 10 units SQ BID@0700,2200 [facility] Loratadine (Claritin -) 10 mg PO DAILY PRN PRN Reason: allergy Methylprednisolone Sodium Succinate (Solu-Medrol -) 40 mg IVPB Q12H [facility] Multivit/Ca Carb/B Cmplx/FA/Prenat (Nephro-Annie -) 1 tablet PO DAILY [facility] Last Admin: 08/01/16 10:50 Dose: 1 tablet Nystatin (Mycostatin Cream -) 1 applic TP BID [facility] Last Admin: 08/01/16 10:51 Dose: 1 applic Ondansetron HCl (Zofran Injection) 4 mg IVPB Q6H PRN PRN Reason: NAUSEA Last Admin: 07/31/16 23:13 Dose: 4 mg Oxycodone HCl (Roxicodone -) 10 mg PO Q4H PRN PRN Reason: PAIN Last Admin: 07/31/16 23:08 Dose: 10 mg Pantoprazole Sodium (Protonix 40mg Ivpb (Pre-Docked)) 40 mg IVPB DAILY [facility] Last Admin: 08/01/16 10:52 Dose: 40 mg Polyethylene Glycol (Miralax (For Daily Use) -) 17 gm PO BID [facility] Last Admin: 08/01/16 10:51 Dose: 17 gm A/P 85 year old woman with PMhx of ESRD on HD (MWF), Afib on A/C, HTN, CAD s/p stents, CHF, DM who presented s/p fall with multiple fractures. #ESRD on HD/Fluid overload isolated UF today as pt remains overloaded goal UF is 2L regular HD tomorrow #Abd distension/Nausea and Vomiting Abd X-ray shows gastric distension GI follow up on clears #Fever/Gram Negative Bacteria Continue Abx as per ID repeat blood cultures w/o growth CT pending when pt can lay flat #Intertrochanteric hip fx/Humerus Fracture s/p Gamma Nail Arm in immobilizer Pain control #CKD Related Anemia Hgb with good responses/p transfusion continue ARI with HD Massimo Melissa DO
--- NOTE | 2016-08-01 15:02 | PN ---
GI Progress Note Subjective: patient evaluated in hemodialysis AXR reveals persistent gastric distention No vomiting reported but patient complains of nausea - Objective Vital Signs: Vital Signs Temperature 98.3 F 08/01/16 08:00 Pulse Rate 65 08/01/16 13:20 Respiratory Rate 18 08/01/16 13:20 Blood Pressure 118/86 08/01/16 13:20 O2 Sat by Pulse Oximetry (%) 99 08/01/16 08:00 Constitutional: Calm Eyes: No: Sclera Icterus Cardiovascular: Yes: Pulse Irregular Respiratory: Yes: Diminished (at bases b/l, poor insp effort) Gastrointestinal Inspection: Yes: Distention ...Auscultate: Yes: Normoactive Bowel Sounds (higher pitched) ...Palpate: Yes: Tenderness (TTP upper abdomen) ...Percussion: Yes: Tympanitic Edema: Yes Edema: LLE: 2+, RLE: 2+ Labs: CBC, BMP 08/01/16 05:35 08/01/16 05:35 INR, PTT INR 1.18 (0.82-1.09) H 07/10/16 07:40 Problem List - Problems (1) Gastric distention Assessment/Plan: Had long discussion with Ms. Mcdonnell and her family who was present bedside. I explained that it has been 3 days and her abdominal x-ray remains unchanged. i also explained that she now has upper abdominal tenderness to palpation as well as marked nausea even when softly palpating her upper abdomen. I explaiend again that to help alleviate her gastric distention, NGT can be placed. I explained potential risks of persistent gastric distention such as perforation. Elitiais has been held from last night. They have now agreed to have it placed Aspiration precautions Code(s): K31.89 - OTHER DISEASES OF STOMACH AND DUODENUM
--- NOTE | 2016-08-01 16:32 | PN ---
Progress Note (short form) - Note Progress Note: 18Fr. salem sump tube placed without difficulty through the left nare. Air ordoñez auscultated in LUQ. The tube was tethered to the nose at the 55cm homer. 500cc of fluid aspirated. Upper abdominal distention improved as did upper abdominal tympany and tenderness AXR ordered Keep NGT on low suction OK for a few ice chips to wet lips Problem List - Problems (1) Gastric distention Code(s): K31.89 - OTHER DISEASES OF STOMACH AND DUODENUM
--- NOTE | 2016-08-01 20:49 | PN ---
Progress Note (short form) - Note Progress Note: CC: s/p hip fracture s: no cp palps dizzy; overall uncomfortable. Just had ng tube placed, states her abdomen feels better. + fatigue o: Current Medications Acetaminophen (Tylenol -) 650 mg PO Q4H PRN PRN Reason: FEVER OR PAIN Last Admin: 07/26/16 23:10 Dose: 650 mg Albuterol/Ipratropium (Duoneb -) 1 amp NEB Q4H PRN PRN Reason: SHORTNESS OF BREATH Last Admin: 07/28/16 21:30 Dose: 1 amp Albuterol/Ipratropium (Duoneb -) 1 amp NEB QIDR [facility] Last Admin: 08/01/16 18:22 Dose: 1 amp Atorvastatin Calcium (Lipitor -) 10 mg PO HS [facility] Last Admin: 07/31/16 23:09 Dose: 10 mg Cholecalciferol (Vitamin D3 -) 1,000 unit PO DAILY [facility] Last Admin: 08/01/16 10:50 Dose: 1,000 unit Docusate Sodium (Colace -) 100 mg PO BID [facility] Last Admin: 08/01/16 10:50 Dose: 100 mg Epoetin Abraham (Procrit -) 10,000 unit IVPUSH ONCE ONE Stop: 08/02/16 06:01 Furosemide (Lasix -) 80 mg PO DAILY [facility] Last Admin: 08/01/16 10:50 Dose: 80 mg Ertapenem 0.5 gm/ Sodium (Chloride) 50 mls @ 50 mls/hr IVPB DAILY [facility] PRN Reason: Protocol Last Admin: 08/01/16 10:54 Dose: 50 mls/hr Insulin Aspart (Novolog Vial Sliding Scale -) 1 vial SQ ACHS [facility] PRN Reason: Protocol Last Admin: 08/01/16 17:13 Dose: 3 units Insulin Detemir (Levemir Vial) 10 units SQ BID@0700,2200 [facility] Loratadine (Claritin -) 10 mg PO DAILY [facility]N PRN Reason: allergy Methylprednisolone Sodium Succinate (Solu-Medrol -) 40 mg IVPB Q12H [facility] Multivit/Ca Carb/B Cmplx/FA/Prenat (Nephro-Annie -) 1 tablet PO DAILY [facility] Last Admin: 08/01/16 10:50 Dose: 1 tablet Nystatin (Mycostatin Cream -) 1 applic TP BID [facility] Last Admin: 08/01/16 10:51 Dose: 1 applic Ondansetron HCl (Zofran Injection) 4 mg IVPB Q6H PRN PRN Reason: NAUSEA Last Admin: 07/31/16 23:13 Dose: 4 mg Oxycodone HCl (Roxicodone -) 10 mg PO Q4H PRN PRN Reason: PAIN Last Admin: 07/31/16 23:08 Dose: 10 mg Pantoprazole Sodium (Protonix 40mg Ivpb (Pre-Docked)) 40 mg IVPB DAILY [facility] Last Admin: 08/01/16 10:52 Dose: 40 mg Polyethylene Glycol (Miralax (For Daily Use) -) 17 gm PO BID [facility] Last Admin: 08/01/16 10:51 Dose: 17 gm Vital Signs - 24 hr 07/31/16 07/31/16 08/01/16 22:00 22:39 06:00 Temperature 97.8 F 97.7 F Pulse Rate 101 H 104 H Respiratory 22 22 Rate Blood Pressure 116/58 106/59 O2 Sat by Pulse 99 Oximetry (%) 08/01/16 08/01/16 08/01/16 08:00 13:10 13:20 Temperature 98.3 F Pulse Rate 105 H 80 65 Respiratory 20 18 18 Rate Blood Pressure 116/79 137/42 118/86 O2 Sat by Pulse 99 Oximetry (%) 08/01/16 08/01/16 08/01/16 13:50 14:20 14:50 Temperature Pulse Rate 87 98 H 95 H Respiratory 18 18 18 Rate Blood Pressure 117/80 120/108 116/61 O2 Sat by Pulse Oximetry (%) 08/01/16 08/01/16 08/01/16 15:20 15:30 17:00 Temperature 97.3 F L Pulse Rate 68 67 106 H Respiratory 18 18 20 Rate Blood Pressure 105/58 117/35 119/64 O2 Sat by Pulse Oximetry (%) Intake & Output 07/30/16 07/31/16 08/01/16 08/02/16 07:59 07:59 07:59 07:59 Intake Total 270 595 400 250 Output Total 0 0 0 400 Balance 270 595 400 -150 Weight 208 lb 2 oz 214 lb 204 lb 6 oz NAD. calm JVD difficult to assess due to neck habitus, but does not appear elevated RRR nl S1 S2. No S3, S4 or mrg scattered exp wheeze,nl eff + BS, soft, obese, ND, NT Venous stasis changes with 1+ dependent LE edema No jaundice, no diaphoresis. aaox3 CBC, BMP 08/01/16 05:35 08/01/16 05:35 Laboratory Tests 08/01/16 05:35 Magnesium 1.7 L echo 08/2015: nl lv/rv. mild lae. valves wnl. no rvsp. A/p: 85 yo with CAD s/p AZUL to RCA '14, Afib on eliquis, dCHF, HTN, HL, IDDM, GEORGE declines CPAP and CKD on HD who presents s/p fall c/b hip fracture. CAD s/p AZUL to RCA in 03/2014 - on statin. not on ASA b/c of hi risk gib and on AC. - remains stable, no anginal symptoms, nl lvef Afib - off AV alexandr blockade due to prior bradycardia (AT/AFL with slow conduction). - rate here is overall controlled - AC with eliquis (details of decision in prior notes). However, currently on hold for NGT placement. will defer to gi as to when it can be resumed. chronic HFPEF, chronic venous insuff: - continued volume mgm't with HD per renal. HTN - stable off meds here ESRD on HD/hyperkalemia/hyponatremia - volume mgm't with HD and po lasix per renal. GEORGE on CPAP - stable uti: -on abx
[2016-08-01] MEDS: INSULIN DETEMIR 100 UNITS/ML MDV SQ SCH (21:10)
[2016-08-01] MEDS: ATORVASTATIN CA 10 MG TABLET (FP) PO SCH (21:11)
[2016-08-02] MEDS: ALBUTEROL SO4 2.5/IPRATROPIUM 0.5 INH SOL 3 ML VIAL.NEB. NEB SCH ×4 (00:05→17:41)
[2016-08-02] MEDS ORDERED: EPOETIN ALFA 10,000 UNIT/1 ML VIAL IVPUSH ONE (06:00)
[2016-08-02] MEDS ORDERED: INSULIN (NOVOLOG) ASPART 100 UNITS/ML 10ML VIAL ONE ×3 (06:07→21:18)
[2016-08-02] MEDS: INSULIN DETEMIR 100 UNITS/ML MDV SQ SCH ×2 (06:21→21:21)
[2016-08-02] MEDS: INSULIN SLIDING SCALE (NOVOLOG) 1 VIAL SQ SCH ×4 (06:22→21:22)
[2016-08-02 07:27] LABS: BASOPHIL 0.2 % (0-2.0); MCH 32.5 pg (25.7-33.7); MCHC 32.4 g/dl (32.0-36.0); MEAN CELL VOLUME 100.2 fl (80-96); MEAN PLT VOLUME 8.4 fl (7.5-11.1); NEUTROPHILS 93.4 % (42.8-82.8); PLATELET COUNT 351 K/MM3 (134-434); RDW 17.3 % (11.6-15.6); WHITE BLOOD COUNT 19.2 K/mm3 (4.0-10.0)
[2016-08-02 07:42] LABS: CALCIUM 7.9 mg/dL (8.5-10.1); CREATININE 3.5 mg/dL (0.55-1.02); MAGNESIUM 1.9 mg/dL (1.8-2.4); PHOSPHOROUS 4.5 mg/dL (2.5-4.9)
[2016-08-02] MEDS: FUROSEMIDE 40 MG TABLET (FP) PO SCH (09:35)
[2016-08-02] MEDS: VITAMIN B COMP W-C 1 EA TABLET PO SCH (09:35)
[2016-08-02] MEDS: POLYETHYLENE GLYCOL 3350 119 GM BTL PO SCH ×2 (09:35→21:21)
[2016-08-02] MEDS: DOCUSATE SODIUM 100 MG CAPSULE (FP) PO SCH ×2 (09:35→21:21)
[2016-08-02] MEDS: CHOLECALCIFEROL (VITAMIN D3) 1,000 UNIT TABLET (FP) PO SCH (09:38)
[2016-08-02] MEDS: NYSTATIN 100,000 UNIT/GM TOPICAL CREAM 15 GM TUBE TP SCH ×2 (09:40→21:21)
[2016-08-02] MEDS: methylPREDNISolone NA SUCC 40 MG/1 ML VIAL IVPB SCH ×2 (09:40→21:22)
[2016-08-02] MEDS: PANTOPRAZOLE SODIUM 40 MG/100 ML PRE-DOCKED IVPB SCH (09:40)
[2016-08-02] MEDS: HYDROmorphone HCL CARPU-JECT 1 MG/1 ML DISP.SYRIN IM PRN ×2 (09:41→18:02)
[2016-08-02] MEDS: ERTAPENEM SODIUM 0.5 GM in SODIUM CHLORIDE 50 ML IVPB SCH ×2 (11:38→15:28)
--- NOTE | 2016-08-02 13:00 | PN ---
Progress Note (short form) - Note Progress Note: Renal Follow up for ESRD on HD Pt seen and examined during dialysis BP stable, Goal uF is 3L pt without complaints s/p NGT decompression last night Vital Signs Temperature 98.1 F 08/02/16 10:40 Pulse Rate 96 H 08/02/16 12:15 Respiratory Rate 18 08/02/16 12:15 Blood Pressure 133/76 08/02/16 12:15 O2 Sat by Pulse Oximetry (%) 96 08/02/16 08:00 Intake & Output 07/30/16 07/31/16 08/01/16 08/02/16 23:59 23:59 23:59 23:59 Intake Total 345 420 480 50 Output Total 0 0 400 100 Balance 345 420 80 -50 Weight 208 lb 2 oz 214 lb 204 lb 6 oz 178 lb 6 oz Gen: NAD, awake and alert CVS: irregular, no M/R Lungs: Dec BS Lung bases, no rales Abd: soft NT/ND Ext: Trace to 1+ edema in LE Access: Left ARM AVF CBC, BMP 08/02/16 06:30 08/02/16 06:30 Current Medications Acetaminophen (Tylenol -) 650 mg PO Q4H PRN PRN Reason: FEVER OR PAIN Last Admin: 07/26/16 23:10 Dose: 650 mg Albuterol/Ipratropium (Duoneb -) 1 amp NEB Q4H PRN PRN Reason: SHORTNESS OF BREATH Last Admin: 07/28/16 21:30 Dose: 1 amp Albuterol/Ipratropium (Duoneb -) 1 amp NEB QIDR [facility] Last Admin: 08/02/16 11:41 Dose: Not Given Atorvastatin Calcium (Lipitor -) 10 mg PO [facility] Last Admin: 08/01/16 21:11 Dose: Not Given Cholecalciferol (Vitamin D3 -) 1,000 unit PO DAILY [facility] Last Admin: 08/02/16 09:38 Dose: Not Given Docusate Sodium (Colace -) 100 mg PO BID [facility] Last Admin: 08/02/16 09:35 Dose: Not Given Furosemide (Lasix -) 80 mg PO DAILY [facility] Last Admin: 08/02/16 09:35 Dose: Not Given Hydromorphone HCl (Dilaudid Injection -) 0.5 mg IM Q4H PRN PRN Reason: PAIN Last Admin: 08/02/16 09:41 Dose: 0.5 mg Ertapenem 0.5 gm/ Sodium (Chloride) 50 mls @ 50 mls/hr IVPB DAILY [facility] PRN Reason: Protocol Last Admin: 08/02/16 11:38 Dose: Not Given Insulin Aspart (Novolog Vial Sliding Scale -) 1 vial SQ ACHS [facility] PRN Reason: Protocol Last Admin: 08/02/16 10:37 Dose: Not Given Insulin Detemir (Levemir Vial) 10 units SQ BID@0700,2200 [facility] Last Admin: 08/02/16 06:21 Dose: Not Given Loratadine (Claritin -) 10 mg PO DAILY PRN PRN Reason: allergy Methylprednisolone Sodium Succinate (Solu-Medrol -) 40 mg IVPB Q12H [facility] Last Admin: 08/02/16 09:40 Dose: 40 mg Multivit/Ca Carb/B Cmplx/FA/Prenat (Nephro-Annie -) 1 tablet PO DAILY [facility] Last Admin: 08/02/16 09:35 Dose: Not Given Nystatin (Mycostatin Cream -) 1 applic TP BID [facility] Last Admin: 08/02/16 09:40 Dose: 1 applic Ondansetron HCl (Zofran Injection) 4 mg IVPB Q6H PRN PRN Reason: NAUSEA Last Admin: 07/31/16 23:13 Dose: 4 mg Oxycodone HCl (Roxicodone -) 10 mg PO Q4H PRN PRN Reason: PAIN Last Admin: 07/31/16 23:08 Dose: 10 mg Pantoprazole Sodium (Protonix 40mg Ivpb (Pre-Docked)) 40 mg IVPB DAILY [facility] Last Admin: 08/02/16 09:40 Dose: 40 mg Polyethylene Glycol (Miralax (For Daily Use) -) 17 gm PO BID [facility] Last Admin: 08/02/16 09:35 Dose: Not Given A/P 85 year old woman with PMhx of ESRD on HD (MWF), Afib on A/C, HTN, CAD s/p stents, CHF, DM who presented s/p fall with multiple fractures. #ESRD on HD/Fluid overload Tolerating Hd today Goal UF is 3L reacess tomorrow for additional UF #Abd distension/Nausea and Vomiting Abd X-ray shows gastric distension GI follow up NGT decompression #Fever/Gram Negative Bacteria Continue Abx as per ID repeat blood cultures w/o growth CT pending when pt can lay flat #Intertrochanteric hip fx/Humerus Fracture s/p Gamma Nail Arm in immobilizer Pain control #CKD Related Anemia Hgb with good responses/p transfusion continue ARI with HD Massimo Melissa DO
[2016-08-02] MEDS ORDERED: DEXTROSE 5%-0.45% SALINE 1,000 ML IV SCH (13:15)
--- NOTE | 2016-08-02 14:28 | PN ---
Progress Note (short form) - Note Progress Note: less SOB c/o sacral pain on HD at present now with NGT Vital Signs Period Temp Pulse Resp BP Sys/Adams Pulse Ox Last 24 Hr 97.3 F-98.4 F 53-111 18-20 105-152/35-101 96-99 +ngt cor-rrr lungs decreased bs at bases abd softer, NT ext +edema CBC, BMP 08/02/16 06:30 08/02/16 06:30 a/p ecoli esbl bacteremia- ertapenem day #11- to complete 14 days esrd/hd volume overload- continues with daily ultrafiltration, family and patient aware of need for fluid restriction s/p hip/humerus fracture repeat blood cultures negative abdominal distention- now with NGT leukocytosis secondary to steroids overall prognosis poor
--- NOTE | 2016-08-02 19:11 | PN ---
Progress Note (short form) - Note Progress Note: GI NOte: Feeling better with NG decompression although fluid output is minimal Abd: still distended and tympanitic but nontender Impression: Possible gastric outlet obstruction Plan: Continue NG suctioning over the weekend. Will use NG for imaging study next week Discussed with .
[2016-08-02] MEDS: ATORVASTATIN CA 10 MG TABLET (FP) PO SCH (21:21)
[2016-08-03] MEDS: ALBUTEROL SO4 2.5/IPRATROPIUM 0.5 INH SOL 3 ML VIAL.NEB. NEB SCH ×4 (00:10→18:05)
[2016-08-03] MEDS ORDERED: INSULIN (NOVOLOG) ASPART 100 UNITS/ML 10ML VIAL ONE ×3 (05:56→21:19)
[2016-08-03] MEDS: INSULIN SLIDING SCALE (NOVOLOG) 1 VIAL SQ SCH ×4 (06:38→21:20)
[2016-08-03] MEDS: INSULIN DETEMIR 100 UNITS/ML MDV SQ SCH ×2 (06:38→21:12)
[2016-08-03] MEDS: methylPREDNISolone NA SUCC 40 MG/1 ML VIAL IVPB SCH ×2 (07:09→10:29)
--- NOTE | 2016-08-03 08:54 | PN ---
Progress Note (short form) - Note Progress Note: PULMONARY Denies shortness of breath or chest pain. No nausea or vomiting. Thirsty. Bloody drainage in NGT suction. Last Vital Signs Temp Pulse Resp BP Pulse Ox 97.3 F L 118 H 22 113/66 96 08/03/16 06:00 08/03/16 06:00 08/03/16 06:00 08/03/16 06:00 08/02/16 21:00 Gen: less tachypneic at rest Heart: RRR Lung: decreased breath sounds at the bases, scattered rhonchi Abd: soft, nontender Ext: + edema CBC, BMP 08/02/16 06:30 08/02/16 06:30 Active Medications Acetaminophen (Tylenol -) 650 mg PO Q4H PRN PRN Reason: FEVER OR PAIN Last Admin: 07/26/16 23:10 Dose: 650 mg Albuterol/Ipratropium (Duoneb -) 1 amp NEB Q4H PRN PRN Reason: SHORTNESS OF BREATH Last Admin: 07/28/16 21:30 Dose: 1 amp Albuterol/Ipratropium (Duoneb -) 1 amp NEB QIDR [facility] Last Admin: 08/03/16 07:09 Dose: 1 amp Atorvastatin Calcium (Lipitor -) 10 mg PO HS [facility] Last Admin: 08/02/16 21:21 Dose: Not Given Cholecalciferol (Vitamin D3 -) 1,000 unit PO DAILY [facility] Last Admin: 08/02/16 09:38 Dose: Not Given Docusate Sodium (Colace -) 100 mg PO BID [facility] Last Admin: 08/02/16 21:21 Dose: Not Given Furosemide (Lasix -) 80 mg PO DAILY [facility] Last Admin: 08/02/16 09:35 Dose: Not Given Hydromorphone HCl (Dilaudid Injection -) 0.5 mg IM Q4H PRN PRN Reason: PAIN Last Admin: 08/02/16 18:02 Dose: 0.5 mg Ertapenem 0.5 gm/ Sodium (Chloride) 50 mls @ 50 mls/hr IVPB DAILY [facility] PRN Reason: Protocol Last Admin: 08/02/16 15:28 Dose: 50 mls/hr Dextrose/Sodium Chloride (D5-1/2ns -) 1,000 mls @ 30 mls/hr IV ASDIR [facility] Stop: 08/03/16 13:14 Last Admin: 08/02/16 15:28 Dose: 30 mls/hr Insulin Aspart (Novolog Vial Sliding Scale -) 1 vial SQ ACHS [facility] PRN Reason: Protocol Last Admin: 08/03/16 06:38 Dose: 1 units Insulin Detemir (Levemir Vial) 10 units SQ BID@0700,2200 [facility] Last Admin: 08/03/16 06:38 Dose: Not Given Loratadine (Claritin -) 10 mg PO DAILY PRN PRN Reason: allergy Methylprednisolone Sodium Succinate (Solu-Medrol -) 40 mg IVPB Q12H [facility] Last Admin: 08/02/16 21:22 Dose: 40 mg Multivit/Ca Carb/B Cmplx/FA/Prenat (Nephro-Annie -) 1 tablet PO DAILY [facility] Last Admin: 08/02/16 09:35 Dose: Not Given Nystatin (Mycostatin Cream -) 1 applic TP BID [facility] Last Admin: 08/02/16 21:21 Dose: 1 applic Ondansetron HCl (Zofran Injection) 4 mg IVPB Q6H PRN PRN Reason: NAUSEA Last Admin: 07/31/16 23:13 Dose: 4 mg Oxycodone HCl (Roxicodone -) 10 mg PO Q4H PRN PRN Reason: PAIN Last Admin: 07/31/16 23:08 Dose: 10 mg Pantoprazole Sodium (Protonix 40mg Ivpb (Pre-Docked)) 40 mg IVPB DAILY [facility] Last Admin: 08/02/16 09:40 Dose: 40 mg Polyethylene Glycol (Miralax (For Daily Use) -) 17 gm PO BID [facility] Last Admin: 08/02/16 21:21 Dose: Not Given A/P Acute Respiratory Distress resolved Gastric Distention - r/o Gastric Outlet Obstruction ESBL E Coli Bacteremia Acute COPD Exacerbation resolving ESRD on HD Morbid Obesity GEORGE Atrial Fibrillation HTN DM - change suction to intermittent low wall suction - protonix - will decrease medrol to 40mg daily - inhaled bronchodilators - continue antibiotics - aspiration precautions - HD per renal - rate control - resume anticoagulation when stable - GI work up in progress
[2016-08-03] MEDS: FUROSEMIDE 40 MG TABLET (FP) PO SCH (10:29)
[2016-08-03] MEDS: VITAMIN B COMP W-C 1 EA TABLET PO SCH (10:29)
[2016-08-03] MEDS: POLYETHYLENE GLYCOL 3350 119 GM BTL PO SCH ×2 (10:29→21:12)
[2016-08-03] MEDS: DOCUSATE SODIUM 100 MG CAPSULE (FP) PO SCH ×2 (10:29→21:12)
[2016-08-03] MEDS: NYSTATIN 100,000 UNIT/GM TOPICAL CREAM 15 GM TUBE TP SCH ×2 (10:30→21:20)
[2016-08-03] MEDS: CHOLECALCIFEROL (VITAMIN D3) 1,000 UNIT TABLET (FP) PO SCH (10:30)
[2016-08-03] MEDS: PANTOPRAZOLE SODIUM 40 MG/100 ML PRE-DOCKED IVPB SCH (10:42)
--- NOTE | 2016-08-03 11:04 | PN ---
Progress Note (short form) - Note Progress Note: Renal Follow up for ESRD on HD Pt seen and examined at the bedside no acute complaints denies sob laying flat NGT in place Vital Signs Temperature 98.1 F 08/03/16 09:06 Pulse Rate 88 08/03/16 09:06 Respiratory Rate 20 08/03/16 09:06 Blood Pressure 132/76 08/03/16 09:06 O2 Sat by Pulse Oximetry (%) 96 08/02/16 21:00 Intake & Output 07/31/16 08/01/16 08/02/16 08/03/16 23:59 23:59 23:59 23:59 Intake Total 420 480 275 395 Output Total 0 400 101 Balance 420 80 174 395 Weight 214 lb 204 lb 6 oz 178 lb 6 oz 184 lb 6 oz Gen: NAD, awake and alert, NGT in place CVS: irregular, no M/R Lungs: Dec BS Lung bases, no rales Abd: soft NT/ND Ext: Trace to 1+ edema in LE Access: Left ARM AVF CBC, BMP 08/02/16 06:30 08/02/16 06:30 Current Medications Acetaminophen (Tylenol -) 650 mg PO Q4H PRN PRN Reason: FEVER OR PAIN Last Admin: 07/26/16 23:10 Dose: 650 mg Albuterol/Ipratropium (Duoneb -) 1 amp NEB Q4H PRN PRN Reason: SHORTNESS OF BREATH Last Admin: 07/28/16 21:30 Dose: 1 amp Albuterol/Ipratropium (Duoneb -) 1 amp NEB QIDR [facility] Last Admin: 08/03/16 07:09 Dose: 1 amp Atorvastatin Calcium (Lipitor -) 10 mg PO HS [facility] Last Admin: 08/02/16 21:21 Dose: Not Given Cholecalciferol (Vitamin D3 -) 1,000 unit PO DAILY [facility] Last Admin: 08/03/16 10:30 Dose: Not Given Docusate Sodium (Colace -) 100 mg PO BID [facility] Last Admin: 08/03/16 10:29 Dose: Not Given Furosemide (Lasix -) 80 mg PO DAILY [facility] Last Admin: 08/03/16 10:29 Dose: Not Given Hydromorphone HCl (Dilaudid Injection -) 0.5 mg IM Q4H PRN PRN Reason: PAIN Last Admin: 08/02/16 18:02 Dose: 0.5 mg Ertapenem 0.5 gm/ Sodium (Chloride) 50 mls @ 50 mls/hr IVPB DAILY [facility] PRN Reason: Protocol Last Admin: 08/02/16 15:28 Dose: 50 mls/hr Dextrose/Sodium Chloride (D5-1/2ns -) 1,000 mls @ 30 mls/hr IV ASDIR [facility] Stop: 08/03/16 13:14 Last Admin: 08/02/16 15:28 Dose: 30 mls/hr Insulin Aspart (Novolog Vial Sliding Scale -) 1 vial SQ ACHS [facility] PRN Reason: Protocol Last Admin: 08/03/16 06:38 Dose: 1 units Insulin Detemir (Levemir Vial) 10 units SQ BID@0700,2200 [facility] Last Admin: 08/03/16 06:38 Dose: Not Given Loratadine (Claritin -) 10 mg PO DAILY PRN PRN Reason: allergy Methylprednisolone Sodium Succinate (Solu-Medrol -) 40 mg IVPB DAILY [facility] Last Admin: 08/03/16 10:29 Dose: 40 mg Multivit/Ca Carb/B Cmplx/FA/Prenat (Nephro-Annie -) 1 tablet PO DAILY [facility] Last Admin: 08/03/16 10:29 Dose: Not Given Nystatin (Mycostatin Cream -) 1 applic TP BID [facility] Last Admin: 08/03/16 10:30 Dose: 1 applic Ondansetron HCl (Zofran Injection) 4 mg IVPB Q6H PRN PRN Reason: NAUSEA Last Admin: 07/31/16 23:13 Dose: 4 mg Oxycodone HCl (Roxicodone -) 10 mg PO Q4H PRN PRN Reason: PAIN Last Admin: 07/31/16 23:08 Dose: 10 mg Pantoprazole Sodium (Protonix 40mg Ivpb (Pre-Docked)) 40 mg IVPB DAILY [facility] Last Admin: 08/03/16 10:42 Dose: 40 mg Polyethylene Glycol (Miralax (For Daily Use) -) 17 gm PO BID [facility] Last Admin: 08/03/16 10:29 Dose: Not Given A/P 85 year old woman with PMhx of ESRD on HD (MWF), Afib on A/C, HTN, CAD s/p stents, CHF, DM who presented s/p fall with multiple fractures. #ESRD on HD/Fluid overload no acute indication for dialysis today Continue Gentle IVF but maintain 1L oral fluid restriction #Abd distension/Nausea and Vomiting Abd X-ray shows gastric distension GI follow up NGT decompression #Fever/Gram Negative Bacteria Continue Abx as per ID repeat blood cultures w/o growth CT pending when pt can lay flat #Intertrochanteric hip fx/Humerus Fracture s/p Gamma Nail Arm in immobilizer Pain control #CKD Related Anemia Hgb with good responses/p transfusion continue ARI with HD Massimo Melissa DO
[2016-08-03] MEDS: HYDROmorphone HCL CARPU-JECT 1 MG/1 ML DISP.SYRIN IM PRN (12:16)
[2016-08-03] MEDS: ERTAPENEM SODIUM 0.5 GM in SODIUM CHLORIDE 50 ML IVPB SCH (12:17)
--- NOTE | 2016-08-03 12:17 | PN ---
Progress Note (short form) - Note Progress Note: Patient seen and examined. Awake, interactive in conversation. Denies chest pain, shortness of breath, palpitation or dizziness. Discussed with the daughter and about her condition. Current Medications Acetaminophen (Tylenol -) 650 mg PO Q4H PRN PRN Reason: FEVER OR PAIN Last Admin: 07/26/16 23:10 Dose: 650 mg Albuterol/Ipratropium (Duoneb -) 1 amp NEB Q4H PRN PRN Reason: SHORTNESS OF BREATH Last Admin: 07/28/16 21:30 Dose: 1 amp Albuterol/Ipratropium (Duoneb -) 1 amp NEB QIDR [facility] Last Admin: 08/03/16 12:00 Dose: 1 amp Atorvastatin Calcium (Lipitor -) 10 mg PO HS [facility] Last Admin: 08/02/16 21:21 Dose: Not Given Cholecalciferol (Vitamin D3 -) 1,000 unit PO DAILY [facility] Last Admin: 08/03/16 10:30 Dose: Not Given Docusate Sodium (Colace -) 100 mg PO BID [facility] Last Admin: 08/03/16 10:29 Dose: Not Given Furosemide (Lasix -) 80 mg PO DAILY [facility] Last Admin: 08/03/16 10:29 Dose: Not Given Hydromorphone HCl (Dilaudid Injection -) 0.5 mg IM Q4H PRN PRN Reason: PAIN Last Admin: 08/02/16 18:02 Dose: 0.5 mg Ertapenem 0.5 gm/ Sodium (Chloride) 50 mls @ 50 mls/hr IVPB DAILY [facility] PRN Reason: Protocol Last Admin: 08/02/16 15:28 Dose: 50 mls/hr Dextrose/Sodium Chloride (D5-1/2ns -) 1,000 mls @ 30 mls/hr IV ASDIR [facility] Stop: 08/03/16 13:14 Last Admin: 08/02/16 15:28 Dose: 30 mls/hr Insulin Aspart (Novolog Vial Sliding Scale -) 1 vial SQ ACHS [facility] PRN Reason: Protocol Last Admin: 08/03/16 06:38 Dose: 1 units Insulin Detemir (Levemir Vial) 10 units SQ BID@0700,2200 [facility] Last Admin: 08/03/16 06:38 Dose: Not Given Loratadine (Claritin -) 10 mg PO DAILY PRN PRN Reason: allergy Methylprednisolone Sodium Succinate (Solu-Medrol -) 40 mg IVPB DAILY [facility] Last Admin: 08/03/16 10:29 Dose: 40 mg Multivit/Ca Carb/B Cmplx/FA/Prenat (Nephro-Annie -) 1 tablet PO DAILY [facility] Last Admin: 08/03/16 10:29 Dose: Not Given Nystatin (Mycostatin Cream -) 1 applic TP BID [facility] Last Admin: 08/03/16 10:30 Dose: 1 applic Ondansetron HCl (Zofran Injection) 4 mg IVPB Q6H PRN PRN Reason: NAUSEA Last Admin: 07/31/16 23:13 Dose: 4 mg Oxycodone HCl (Roxicodone -) 10 mg PO Q4H PRN PRN Reason: PAIN Last Admin: 07/31/16 23:08 Dose: 10 mg Pantoprazole Sodium (Protonix 40mg Ivpb (Pre-Docked)) 40 mg IVPB DAILY [facility] Last Admin: 08/03/16 10:42 Dose: 40 mg Polyethylene Glycol (Miralax (For Daily Use) -) 17 gm PO BID [facility] Last Admin: 08/03/16 10:29 Dose: Not Given - Objective Vital Signs: Vital Signs Period Temp Pulse Resp BP Sys/Adams Pulse Ox Last 24 Hr 97.3 F-98.9 F 66-118 18-22 104-140/45-82 96 Constitutional: Yes: Mild Distress, Obese Cardiovascular: Yes: Regular Rate and Rhythm. No: Gallop, Murmur, Rub Respiratory: Yes: Regular, CTA Bilaterally. No: Rales, Rhonchi, Wheezes Gastrointestinal: Yes: Normal Bowel Sounds, Soft. No: Distention, Tenderness Extremities: Yes: WNL Edema: Yes Edema: LLE: 1+, RLE: 1+ Labs: CBC, BMP 08/02/16 06:30 08/02/16 06:30 Problem List - Problems (1) Hip fracture Code(s): S72.009A - FRACTURE OF UNSP PART OF NECK OF UNSP FEMUR, INIT Qualifiers: Encounter type: initial encounter Fracture type: closed Laterality : right Qualified Code(s): S72.001A - Fracture of unspecified part of neck of right femur, initial encounter for closed fracture (2) (HFpEF) heart failure with preserved ejection fraction Code(s): I50.9 - HEART FAILURE, UNSPECIFIED (3) Bilateral leg edema Code(s): R60.0 - LOCALIZED EDEMA (4) Diabetes Code(s): E11.9 - TYPE 2 DIABETES MELLITUS WITHOUT COMPLICATIONS (5) HTN (hypertension) Code(s): I10 - ESSENTIAL (PRIMARY) HYPERTENSION (6) Hyperkalemia Code(s): E87.5 - HYPERKALEMIA (7) End stage renal failure on dialysis Code(s): N18.6 - END STAGE RENAL DISEASE Z99.2 - DEPENDENCE ON RENAL DIALYSIS (8) Obesity Code(s): E66.9 - OBESITY, UNSPECIFIED Qualifiers: Obesity severity: morbid (9) Anemia Code(s): D64.9 - ANEMIA, UNSPECIFIED (10) Hyponatremia Code(s): E87.1 - HYPO-OSMOLALITY AND HYPONATREMIA (11) UTI (urinary tract infection) Code(s): N39.0 - URINARY TRACT INFECTION, SITE NOT SPECIFIED Assessment/Plan (1) Ileus -NPO/NGT with intermittent suction. GI follow up appreciated. (2) SOB -stable -continue current management -steroid taper per pulmonary (3) Hip fracture Assessment/Plan: -pain controlled -continue oxycodone -SNF placement when medically stable Code(s): S72.009A - FRACTURE OF UNSP PART OF NECK OF UNSP FEMUR, INIT Qualifiers: Encounter type: initial encounter Fracture type: closed Laterality : right Qualified Code(s): S72.001A - Fracture of unspecified part of neck of right femur, initial encounter for closed fracture (4) (HFpEF) heart failure with preserved ejection fraction Assessment/Plan: -leg edema unchanged -continue oral lasix -plan for HD tomorrow Code(s): I50.9 - HEART FAILURE, UNSPECIFIED (5) Bilateral leg edema Assessment/Plan: -stable Code(s): R60.0 - LOCALIZED EDEMA (6) Diabetes Assessment/Plan: -diabetic/renal diet -Continue levemir/ISS Code(s): E11.9 - TYPE 2 DIABETES MELLITUS WITHOUT COMPLICATIONS (7) HTN (hypertension) Assessment/Plan: -well controlled -continue lasix Code(s): I10 - ESSENTIAL (PRIMARY) HYPERTENSION (8) Hyperkalemia Assessment/Plan: -resolved with HD Code(s): E87.5 - HYPERKALEMIA (9) End stage renal failure on dialysis Assessment/Plan: -continue HD per nephrology Code(s): N18.6 - END STAGE RENAL DISEASE Z99.2 - DEPENDENCE ON RENAL DIALYSIS (10) Obesity Code(s): E66.9 - OBESITY, UNSPECIFIED Qualifiers: Obesity severity: morbid (11) Hyponatremia -much improved with fluid restriction (12) Sepsis -appreciate ID assistance -continue ertapenem (13) Anemia -secondary to renal function -continue epo per nephrology -s/p transfusion (14) Severe constipation -continue stool softeners
[2016-08-03] MEDS: DEXTROSE 5%-0.45% SALINE 1,000 ML IV SCH (14:49)
[2016-08-03] MEDS: ATORVASTATIN CA 10 MG TABLET (FP) PO SCH (21:12)
[2016-08-04] MEDS: ALBUTEROL SO4 2.5/IPRATROPIUM 0.5 INH SOL 3 ML VIAL.NEB. NEB SCH ×4 (00:13→17:42)
[2016-08-04] MEDS: INSULIN SLIDING SCALE (NOVOLOG) 1 VIAL SQ SCH ×4 (05:59→21:12)
[2016-08-04] MEDS: INSULIN DETEMIR 100 UNITS/ML MDV SQ SCH ×2 (05:59→21:03)
[2016-08-04] MEDS: FUROSEMIDE 40 MG TABLET (FP) PO SCH (09:55)
[2016-08-04] MEDS: VITAMIN B COMP W-C 1 EA TABLET PO SCH (09:55)
[2016-08-04] MEDS: POLYETHYLENE GLYCOL 3350 119 GM BTL PO SCH ×2 (09:55→21:04)
[2016-08-04] MEDS: DOCUSATE SODIUM 100 MG CAPSULE (FP) PO SCH ×2 (09:55→21:03)
[2016-08-04] MEDS: CHOLECALCIFEROL (VITAMIN D3) 1,000 UNIT TABLET (FP) PO SCH (09:56)
[2016-08-04] MEDS ORDERED: INSULIN (NOVOLOG) ASPART 100 UNITS/ML 10ML VIAL ONE ×3 (09:58→21:11)
[2016-08-04] MEDS: PANTOPRAZOLE SODIUM 40 MG/100 ML PRE-DOCKED IVPB SCH (10:05)
[2016-08-04] MEDS: NYSTATIN 100,000 UNIT/GM TOPICAL CREAM 15 GM TUBE TP SCH ×2 (10:05→21:12)
[2016-08-04] MEDS: methylPREDNISolone NA SUCC 40 MG/1 ML VIAL IVPB SCH (10:05)
--- NOTE | 2016-08-04 10:19 | PN ---
Progress Note (short form) - Note Progress Note: PULMONARY Denies shortness of breath or chest pain. No nausea or vomiting. NGT now without bloody return on GOO. Last Vital Signs Temp Pulse Resp BP Pulse Ox 99.0 F 107 H 22 113/64 97 08/04/16 06:00 08/04/16 06:00 08/04/16 06:00 08/04/16 06:00 08/03/16 21:00 Gen: less tachypneic at rest Heart: tachycardic, irregular Lung: decreased breath sounds at the bases, scattered rhonchi, wheezes Abd: soft, nontender Ext: + edema CBC, BMP 08/02/16 06:30 08/02/16 06:30 Active Medications Acetaminophen (Tylenol -) 650 mg PO Q4H PRN PRN Reason: FEVER OR PAIN Last Admin: 07/26/16 23:10 Dose: 650 mg Albuterol/Ipratropium (Duoneb -) 1 amp NEB Q4H PRN PRN Reason: SHORTNESS OF BREATH Last Admin: 07/28/16 21:30 Dose: 1 amp Albuterol/Ipratropium (Duoneb -) 1 amp NEB QIDR [facility] Last Admin: 08/04/16 08:02 Dose: 1 amp Atorvastatin Calcium (Lipitor -) 10 mg PO HS [facility] Last Admin: 08/03/16 21:12 Dose: Not Given Cholecalciferol (Vitamin D3 -) 1,000 unit PO DAILY [facility] Last Admin: 08/04/16 09:56 Dose: Not Given Docusate Sodium (Colace -) 100 mg PO BID [facility] Last Admin: 08/04/16 09:55 Dose: Not Given Furosemide (Lasix -) 80 mg PO DAILY [facility] Last Admin: 08/04/16 09:55 Dose: Not Given Hydromorphone HCl (Dilaudid Injection -) 0.5 mg IM Q4H PRN PRN Reason: PAIN Last Admin: 08/03/16 12:16 Dose: 0.5 mg Ertapenem 0.5 gm/ Sodium (Chloride) 50 mls @ 50 mls/hr IVPB DAILY [facility] PRN Reason: Protocol Last Admin: 08/03/16 12:17 Dose: 50 mls/hr Dextrose/Sodium Chloride (D5-1/2ns -) 1,000 mls @ 30 mls/hr IV ASDIR [facility] Last Admin: 08/03/16 14:49 Dose: 30 mls/hr Insulin Aspart (Novolog Vial Sliding Scale -) 1 vial SQ ACHS [facility] PRN Reason: Protocol Last Admin: 08/04/16 05:59 Dose: Not Given Insulin Detemir (Levemir Vial) 10 units SQ BID@0700,2200 [facility] Last Admin: 08/04/16 05:59 Dose: Not Given Loratadine (Claritin -) 10 mg PO DAILY PRN PRN Reason: allergy Methylprednisolone Sodium Succinate (Solu-Medrol -) 40 mg IVPB DAILY [facility] Last Admin: 08/04/16 10:05 Dose: 40 mg Multivit/Ca Carb/B Cmplx/FA/Prenat (Nephro-Annie -) 1 tablet PO DAILY [facility] Last Admin: 08/04/16 09:55 Dose: Not Given Nystatin (Mycostatin Cream -) 1 applic TP BID [facility] Last Admin: 08/04/16 10:05 Dose: 1 applic Ondansetron HCl (Zofran Injection) 4 mg IVPB Q6H PRN PRN Reason: NAUSEA Last Admin: 07/31/16 23:13 Dose: 4 mg Oxycodone HCl (Roxicodone -) 10 mg PO Q4H PRN PRN Reason: PAIN Last Admin: 07/31/16 23:08 Dose: 10 mg Pantoprazole Sodium (Protonix 40mg Ivpb (Pre-Docked)) 40 mg IVPB DAILY [facility] Last Admin: 08/04/16 10:05 Dose: 40 mg Polyethylene Glycol (Miralax (For Daily Use) -) 17 gm PO BID [facility] Last Admin: 08/04/16 09:55 Dose: Not Given A/P Acute Respiratory Distress resolved Gastric Distention - r/o Gastric Outlet Obstruction ESBL E Coli Bacteremia Acute COPD Exacerbation resolving ESRD on HD Morbid Obesity GEORGE Atrial Fibrillation HTN DM - continue NGT to ILWS - protonix - continue medrol at current dose - inhaled bronchodilators - continue antibiotics - aspiration precautions - HD per renal - rate control - resume anticoagulation when stable - GI work up in progress
[2016-08-04] MEDS: ERTAPENEM SODIUM 0.5 GM in SODIUM CHLORIDE 50 ML IVPB SCH (11:18)
[2016-08-04 11:38] LABS: BASOPHIL 0.1 % (0-2.0); EOSINOPHIL 0.1 % (0-4.5); MCH 32.1 pg (25.7-33.7); MCHC 31.8 g/dl (32.0-36.0); MEAN CELL VOLUME 101.2 fl (80-96); MEAN PLT VOLUME 8.7 fl (7.5-11.1); NEUTROPHILS 92.8 % (42.8-82.8); PLATELET COUNT 344 K/MM3 (134-434); RDW 17.7 % (11.6-15.6); WHITE BLOOD COUNT 23.3 K/mm3 (4.0-10.0)
[2016-08-04 12:10] LABS: ALBUMIN 2.4 g/dl (3.4-5.0); CALCIUM 7.8 mg/dL (8.5-10.1)
[2016-08-04] MEDS: HYDROmorphone HCL CARPU-JECT 1 MG/1 ML DISP.SYRIN IM PRN ×2 (12:12→18:46)
[2016-08-04 12:13] LABS: BILIRUBIN,TOTAL 0.9 mg/dL (0.2-1.0); CREATININE 4.6 mg/dL (0.55-1.02); TOT PROT 6.2 g/dl (6.4-8.2)
[2016-08-04] MEDS: DEXTROSE 5%-0.45% SALINE 1,000 ML IV SCH (14:35)
--- NOTE | 2016-08-04 16:04 | PN ---
GI Progress Note Subjective: GASTROENTEROLOGY NGT HAS MINIMAL DRAINAGE FOR UGI SERIES WITH GASTRO IN AM - Objective Vital Signs: Vital Signs Temperature 98.6 F 08/04/16 14:00 Pulse Rate 108 H 08/04/16 14:00 Respiratory Rate 20 08/04/16 14:00 Blood Pressure 112/58 08/04/16 08:00 O2 Sat by Pulse Oximetry (%) 100 08/04/16 08:00 Constitutional: No Distress HENT: Yes: WNL Cardiovascular: Yes: WNL Respiratory: Yes: WNL Gastrointestinal Inspection: Yes: WNL ...Auscultate: Yes: Normoactive Bowel Sounds ...Palpate: Yes: Soft Extremities: Yes: WNL Labs: CBC, BMP 08/04/16 11:00 08/04/16 11:00 INR, PTT INR 1.18 (0.82-1.09) H 07/10/16 07:40 Problem List - Problems (1) Gastric distention Assessment/Plan: FOR UGI SERIES VIA NGT IN AM Code(s): K31.89 - OTHER DISEASES OF STOMACH AND DUODENUM (2) Gastric outlet obstruction Code(s): K31.1 - ADULT HYPERTROPHIC PYLORIC STENOSIS
--- NOTE | 2016-08-04 19:47 | PN ---
Progress Note (short form) - Note Progress Note: No acute event overnight. Denies chest pain, shortness of breath, palpitation. Discussed with daughter and about her condition. Current Medications Acetaminophen (Tylenol -) 650 mg PO Q4H PRN PRN Reason: FEVER OR PAIN Last Admin: 07/26/16 23:10 Dose: 650 mg Albuterol/Ipratropium (Duoneb -) 1 amp NEB Q4H PRN PRN Reason: SHORTNESS OF BREATH Last Admin: 07/28/16 21:30 Dose: 1 amp Albuterol/Ipratropium (Duoneb -) 1 amp NEB QIDR [facility] Last Admin: 08/03/16 12:00 Dose: 1 amp Atorvastatin Calcium (Lipitor -) 10 mg PO HS [facility] Last Admin: 08/02/16 21:21 Dose: Not Given Cholecalciferol (Vitamin D3 -) 1,000 unit PO DAILY [facility] Last Admin: 08/03/16 10:30 Dose: Not Given Docusate Sodium (Colace -) 100 mg PO BID [facility] Last Admin: 08/03/16 10:29 Dose: Not Given Furosemide (Lasix -) 80 mg PO DAILY [facility] Last Admin: 08/03/16 10:29 Dose: Not Given Hydromorphone HCl (Dilaudid Injection -) 0.5 mg IM Q4H PRN PRN Reason: PAIN Last Admin: 08/02/16 18:02 Dose: 0.5 mg Ertapenem 0.5 gm/ Sodium (Chloride) 50 mls @ 50 mls/hr IVPB DAILY [facility] PRN Reason: Protocol Last Admin: 08/02/16 15:28 Dose: 50 mls/hr Dextrose/Sodium Chloride (D5-1/2ns -) 1,000 mls @ 30 mls/hr IV ASDIR [facility] Stop: 08/03/16 13:14 Last Admin: 08/02/16 15:28 Dose: 30 mls/hr Insulin Aspart (Novolog Vial Sliding Scale -) 1 vial SQ ACHS [facility] PRN Reason: Protocol Last Admin: 08/03/16 06:38 Dose: 1 units Insulin Detemir (Levemir Vial) 10 units SQ BID@0700,2200 [facility] Last Admin: 08/03/16 06:38 Dose: Not Given Loratadine (Claritin -) 10 mg PO DAILY PRN PRN Reason: allergy Methylprednisolone Sodium Succinate (Solu-Medrol -) 40 mg IVPB DAILY [facility] Last Admin: 08/03/16 10:29 Dose: 40 mg Multivit/Ca Carb/B Cmplx/FA/Prenat (Nephro-Annie -) 1 tablet PO DAILY [facility] Last Admin: 08/03/16 10:29 Dose: Not Given Nystatin (Mycostatin Cream -) 1 applic TP BID [facility] Last Admin: 08/03/16 10:30 Dose: 1 applic Ondansetron HCl (Zofran Injection) 4 mg IVPB Q6H PRN PRN Reason: NAUSEA Last Admin: 07/31/16 23:13 Dose: 4 mg Oxycodone HCl (Roxicodone -) 10 mg PO Q4H PRN PRN Reason: PAIN Last Admin: 07/31/16 23:08 Dose: 10 mg Pantoprazole Sodium (Protonix 40mg Ivpb (Pre-Docked)) 40 mg IVPB DAILY [facility] Last Admin: 08/03/16 10:42 Dose: 40 mg Polyethylene Glycol (Miralax (For Daily Use) -) 17 gm PO BID [facility] Last Admin: 08/03/16 10:29 Dose: Not Given - Objective Vital Signs: Vital Signs Period Temp Pulse Resp BP Sys/Adams Pulse Ox Last 24 Hr 98.0 F-99.0 F 78-110 20-22 112-138/58-78 97-100 Constitutional: Yes: Mild Distress, Obese Cardiovascular: Yes: Regular Rate and Rhythm. No: Gallop, Murmur, Rub Respiratory: Yes: Regular, CTA Bilaterally. No: Rales, Rhonchi, Wheezes Gastrointestinal: Yes: Normal Bowel Sounds, Soft. No: Distention, Tenderness Extremities: Yes: WNL Edema: Yes Edema: LLE: 1+, RLE: 1+ Labs: CBC, BMP 08/04/16 11:00 08/04/16 11:00 Problem List - Problems (1) Hip fracture Code(s): S72.009A - FRACTURE OF UNSP PART OF NECK OF UNSP FEMUR, INIT Qualifiers: Encounter type: initial encounter Fracture type: closed Laterality : right Qualified Code(s): S72.001A - Fracture of unspecified part of neck of right femur, initial encounter for closed fracture (2) (HFpEF) heart failure with preserved ejection fraction Code(s): I50.9 - HEART FAILURE, UNSPECIFIED (3) Bilateral leg edema Code(s): R60.0 - LOCALIZED EDEMA (4) Diabetes Code(s): E11.9 - TYPE 2 DIABETES MELLITUS WITHOUT COMPLICATIONS (5) HTN (hypertension) Code(s): I10 - ESSENTIAL (PRIMARY) HYPERTENSION (6) Hyperkalemia Code(s): E87.5 - HYPERKALEMIA (7) End stage renal failure on dialysis Code(s): N18.6 - END STAGE RENAL DISEASE Z99.2 - DEPENDENCE ON RENAL DIALYSIS (8) Obesity Code(s): E66.9 - OBESITY, UNSPECIFIED Qualifiers: Obesity severity: morbid (9) Anemia Code(s): D64.9 - ANEMIA, UNSPECIFIED (10) Hyponatremia Code(s): E87.1 - HYPO-OSMOLALITY AND HYPONATREMIA (11) UTI (urinary tract infection) Code(s): N39.0 - URINARY TRACT INFECTION, SITE NOT SPECIFIED Assessment/Plan (1) Ileus -NPO/NGT with intermittent suction. GI follow up appreciated. (2) SOB -stable -continue current management -steroid taper per pulmonary (3) Hip fracture Assessment/Plan: -pain controlled -continue oxycodone -SNF placement when medically stable Code(s): S72.009A - FRACTURE OF UNSP PART OF NECK OF UNSP FEMUR, INIT Qualifiers: Encounter type: initial encounter Fracture type: closed Laterality : right Qualified Code(s): S72.001A - Fracture of unspecified part of neck of right femur, initial encounter for closed fracture (4) (HFpEF) heart failure with preserved ejection fraction Assessment/Plan: -leg edema unchanged -continue oral lasix Code(s): I50.9 - HEART FAILURE, UNSPECIFIED (5) Bilateral leg edema Assessment/Plan: -stable Code(s): R60.0 - LOCALIZED EDEMA (6) Diabetes Assessment/Plan: -diabetic/renal diet -Continue levemir/ISS Code(s): E11.9 - TYPE 2 DIABETES MELLITUS WITHOUT COMPLICATIONS (7) HTN (hypertension) Assessment/Plan: -well controlled -continue lasix Code(s): I10 - ESSENTIAL (PRIMARY) HYPERTENSION (8) Hyperkalemia Assessment/Plan: -resolved with HD Code(s): E87.5 - HYPERKALEMIA (9) End stage renal failure on dialysis Assessment/Plan: -continue HD per nephrology Code(s): N18.6 - END STAGE RENAL DISEASE Z99.2 - DEPENDENCE ON RENAL DIALYSIS (10) Obesity Code(s): E66.9 - OBESITY, UNSPECIFIED Qualifiers: Obesity severity: morbid (11) Hyponatremia -improved with fluid restriction (12) Sepsis -appreciate ID assistance -continue ertapenem (13) Anemia -secondary to renal function -continue epo per nephrology -s/p transfusion (14) Severe constipation -continue stool softeners (15) Leukocytosis Most likely due to steroids. Will continue to monitor.
[2016-08-04] MEDS: ATORVASTATIN CA 10 MG TABLET (FP) PO SCH (21:04)
[2016-08-05] MEDS: ALBUTEROL SO4 2.5/IPRATROPIUM 0.5 INH SOL 3 ML VIAL.NEB. NEB SCH ×3 (00:13→11:44)
[2016-08-05] MEDS: INSULIN DETEMIR 100 UNITS/ML MDV SQ SCH ×2 (06:04→21:08)
[2016-08-05] MEDS: INSULIN SLIDING SCALE (NOVOLOG) 1 VIAL SQ SCH ×4 (06:04→21:10)
[2016-08-05] MEDS: HYDROmorphone HCL CARPU-JECT 1 MG/1 ML DISP.SYRIN IM PRN (06:32)
[2016-08-05 07:31] LABS: BASOPHIL 0.2 % (0-2.0); EOSINOPHIL 0.1 % (0-4.5); MCH 32.5 pg (25.7-33.7); MCHC 32.3 g/dl (32.0-36.0); MEAN CELL VOLUME 100.6 fl (80-96); NEUTROPHILS 90.6 % (42.8-82.8); PLATELET COUNT 366 K/MM3 (134-434); RDW 17.8 % (11.6-15.6); WHITE BLOOD COUNT 18.9 K/mm3 (4.0-10.0)
[2016-08-05 07:54] LABS: CALCIUM 7.6 mg/dL (8.5-10.1)
[2016-08-05 07:55] LABS: CREATININE 5.4 mg/dL (0.55-1.02)
[2016-08-05] MEDS: DOCUSATE SODIUM 100 MG CAPSULE (FP) PO SCH ×2 (10:02→21:07)
[2016-08-05] MEDS: VITAMIN B COMP W-C 1 EA TABLET PO SCH (10:02)
[2016-08-05] MEDS: methylPREDNISolone NA SUCC 40 MG/1 ML VIAL IVPB SCH (10:02)
[2016-08-05] MEDS: FUROSEMIDE 40 MG TABLET (FP) PO SCH (10:02)
[2016-08-05] MEDS: POLYETHYLENE GLYCOL 3350 119 GM BTL PO SCH ×2 (10:02→21:08)
[2016-08-05] MEDS: CHOLECALCIFEROL (VITAMIN D3) 1,000 UNIT TABLET (FP) PO SCH (10:02)
--- NOTE | 2016-08-05 10:48 | PN ---
Progress Note (short form) - Note Progress Note: Renal Follow up for ESRD on HD Pt seen and examined at the bedside asking for water awaiting upper GI series for HD today Vital Signs Temperature 97.8 F 08/05/16 05:48 Pulse Rate 112 H 08/05/16 05:48 Respiratory Rate 18 08/05/16 05:48 Blood Pressure 119/61 08/05/16 05:48 O2 Sat by Pulse Oximetry (%) 98 08/04/16 21:00 Intake & Output 08/02/16 08/03/16 08/04/16 08/05/16 23:59 23:59 23:59 23:59 Intake Total 275 825 0 360 Output Total 101 101 150 200 Balance 174 724 -150 160 Weight 178 lb 6 oz 184 lb 6 oz 187 lb 7 oz 185 lb 7 oz Gen: NAD, awake and alert, NGT in place CVS: irregular, no M/R Lungs: Dec BS Lung bases, no rales Abd: soft NT/ND Ext: Trace to 1+ edema in LE Access: Left ARM AVF CBC, BMP 08/05/16 06:25 08/05/16 06:25 Current Medications Acetaminophen (Tylenol -) 650 mg PO Q4H PRN PRN Reason: FEVER OR PAIN Last Admin: 07/26/16 23:10 Dose: 650 mg Albuterol/Ipratropium (Duoneb -) 1 amp NEB Q4H PRN PRN Reason: SHORTNESS OF BREATH Last Admin: 07/28/16 21:30 Dose: 1 amp Albuterol/Ipratropium (Duoneb -) 1 amp NEB QIDR [facility] Last Admin: 08/05/16 06:29 Dose: 1 amp Atorvastatin Calcium (Lipitor -) 10 mg PO HS [facility] Last Admin: 08/04/16 21:04 Dose: Not Given Cholecalciferol (Vitamin D3 -) 1,000 unit PO DAILY [facility] Last Admin: 08/05/16 10:02 Dose: Not Given Docusate Sodium (Colace -) 100 mg PO BID [facility] Last Admin: 08/05/16 10:02 Dose: Not Given Epoetin Abraham (Procrit -) 10,000 unit IVPUSH ONCE ONE Stop: 08/05/16 08:01 Furosemide (Lasix -) 80 mg PO DAILY [facility] Last Admin: 08/05/16 10:02 Dose: Not Given Dextrose/Sodium Chloride (D5-1/2ns -) 1,000 mls @ 30 mls/hr IV ASDIR [facility] Last Admin: 08/04/16 14:35 Dose: Not Given Insulin Aspart (Novolog Vial Sliding Scale -) 1 vial SQ ACHS [facility] PRN Reason: Protocol Last Admin: 08/05/16 06:04 Dose: Not Given Insulin Detemir (Levemir Vial) 10 units SQ BID@0700,2200 [facility] Last Admin: 08/05/16 06:04 Dose: Not Given Loratadine (Claritin -) 10 mg PO DAILY PRN PRN Reason: allergy Methylprednisolone Sodium Succinate (Solu-Medrol -) 40 mg IVPB DAILY [facility] Last Admin: 08/05/16 10:02 Dose: 40 mg Multivit/Ca Carb/B Cmplx/FA/Prenat (Nephro-Annie -) 1 tablet PO DAILY [facility] Last Admin: 08/05/16 10:02 Dose: Not Given Nystatin (Mycostatin Cream -) 1 applic TP BID [facility] Last Admin: 08/04/16 21:12 Dose: 1 applic Ondansetron HCl (Zofran Injection) 4 mg IVPB Q6H PRN PRN Reason: NAUSEA Last Admin: 07/31/16 23:13 Dose: 4 mg Pantoprazole Sodium (Protonix 40mg Ivpb (Pre-Docked)) 40 mg IVPB DAILY [facility] Last Admin: 08/04/16 10:05 Dose: 40 mg Polyethylene Glycol (Miralax (For Daily Use) -) 17 gm PO BID [facility] Last Admin: 08/05/16 10:02 Dose: Not Given A/P 85 year old woman with PMhx of ESRD on HD (MWF), Afib on A/C, HTN, CAD s/p stents, CHF, DM who presented s/p fall with multiple fractures. #ESRD on HD/Fluid overload for HD today following upper GI series #Abd distension/Nausea and Vomiting management as per GI #Fever/Gram Negative Bacteria Continue Abx as per ID repeat blood cultures w/o growth CT pending when pt can lay flat #Intertrochanteric hip fx/Humerus Fracture s/p Gamma Nail Arm in immobilizer Pain control #CKD Related Anemia Hgb at goal Massimo Melissa DO
[2016-08-05] MEDS: PANTOPRAZOLE SODIUM 40 MG/100 ML PRE-DOCKED IVPB SCH (11:45)
[2016-08-05] MEDS: NYSTATIN 100,000 UNIT/GM TOPICAL CREAM 15 GM TUBE TP SCH ×2 (11:45→21:12)
--- NOTE | 2016-08-05 12:42 | PN ---
Progress Note (short form) - Note Progress Note: less SOB c/o sacral pain on HD at present remains on steroids +NGT Vital Signs Period Temp Pulse Resp BP Sys/Adams Pulse Ox Last 24 Hr 97.2 F-98.6 F 100-128 18-20 102-119/53-61 97-98 cor-rrr lungs decreased bs at bases abd soft,nt ext less edema legs and arms CBC, BMP 08/05/16 06:25 08/05/16 06:25 Microbiology 07/29/16 12:30 Blood - Pre-Dialysis Blood Culture - Final NO GROWTH AFTER 5 DAYS INCUBATION 07/29/16 12:00 Blood - Pre-Dialysis Blood Culture - Final NO GROWTH AFTER 5 DAYS INCUBATION 07/24/16 09:00 Blood - Pre-Dialysis Blood Culture - Final NO GROWTH AFTER 5 DAYS INCUBATION 07/24/16 09:00 Blood - Pre-Dialysis Blood Culture - Final NO GROWTH AFTER 5 DAYS INCUBATION 07/22/16 16:30 Urine - Urine - Catheterized Urine Culture - Final Vr Ec Faecium 07/21/16 12:30 Blood - Peripheral Venous Blood Culture - Final Escherichia Coli Esbl [employer]otic [employer] Prosthetic Technician 07/22/16 11:27 Blood - Post-Dialysis Blood Culture - Final Escherichia Coli Esbl Orthotic And Prosthetic Technician 07/21/16 12:20 Blood - Peripheral Venous Blood Culture - Final Escherichia Coli Esbl Orthotic And Prosthetic Technician 07/17/16 12:15 Blood - Peripheral Venous Blood Culture - Final NO GROWTH AFTER 5 DAYS INCUBATION 07/17/16 12:15 Blood - Peripheral Venous Blood Culture - Final NO GROWTH AFTER 5 DAYS INCUBATION 07/16/16 15:00 Hip - Right Gram Stain - Final 07/16/16 15:00 Hip - Right Wound Culture - Final Staphylococcus Haemolyticus 07/10/16 07:00 Urine - Urine Cooper Urine Culture - Final Escherichia Coli a/p ecoli esbl bacteremia- ertapenem day #14- last day today esrd/hd volume overload- s/p hip/humerus fracture repeat blood cultures negative abdominal distention- now with NGT leukocytosis secondary to steroids overall prognosis poor
[2016-08-05] MEDS ORDERED: EPOETIN ALFA 10,000 UNIT/1 ML VIAL IVPUSH ONE (13:15)
--- NOTE | 2016-08-05 17:07 | PN ---
Progress Note, Physician Chief Complaint: Ms Mcdonnell says she is feeling tired since went from radiology to HD. Asking how much longer she will need the NGT. No cp or sob. - Current Medication List Current Medications: Active Medications Acetaminophen (Tylenol -) 650 mg PO Q4H PRN PRN Reason: FEVER OR PAIN Last Admin: 07/26/16 23:10 Dose: 650 mg Atorvastatin Calcium (Lipitor -) 10 mg PO HS [facility] Last Admin: 08/04/16 21:04 Dose: Not Given Cholecalciferol (Vitamin D3 -) 1,000 unit PO DAILY [facility] Last Admin: 08/05/16 10:02 Dose: Not Given Docusate Sodium (Colace -) 100 mg PO BID [facility] Last Admin: 08/05/16 10:02 Dose: Not Given Furosemide (Lasix -) 80 mg PO DAILY [facility] Last Admin: 08/05/16 10:02 Dose: Not Given Dextrose/Sodium Chloride (D5-1/2ns -) 1,000 mls @ 30 mls/hr IV ASDIR [facility] Last Admin: 08/04/16 14:35 Dose: Not Given Insulin Aspart (Novolog Vial Sliding Scale -) 1 vial SQ ACHS [facility] PRN Reason: Protocol Last Admin: 08/05/16 11:52 Dose: 1 units Insulin Detemir (Levemir Vial) 10 units SQ BID@0700,2200 [facility] Last Admin: 08/05/16 06:04 Dose: Not Given Loratadine (Claritin -) 10 mg PO DAILY PRN PRN Reason: allergy Methylprednisolone Sodium Succinate (Solu-Medrol -) 40 mg IVPB DAILY [facility] Last Admin: 08/05/16 10:02 Dose: 40 mg Multivit/Ca Carb/B Cmplx/FA/Prenat (Nephro-Annie -) 1 tablet PO DAILY [facility] Last Admin: 08/05/16 10:02 Dose: Not Given Nystatin (Mycostatin Cream -) 1 applic TP BID [facility] Last Admin: 08/05/16 11:45 Dose: 1 applic Ondansetron HCl (Zofran Injection) 4 mg IVPB Q6H PRN PRN Reason: NAUSEA Last Admin: 07/31/16 23:13 Dose: 4 mg Pantoprazole Sodium (Protonix 40mg Ivpb (Pre-Docked)) 40 mg IVPB DAILY [facility] Last Admin: 08/05/16 11:45 Dose: 40 mg Polyethylene Glycol (Miralax (For Daily Use) -) 17 gm PO BID [facility] Last Admin: 08/05/16 10:02 Dose: Not Given - Objective Vital Signs: Vital Signs Temperature 98.1 F 08/05/16 10:00 Pulse Rate 52 L 08/05/16 15:55 Respiratory Rate 18 08/05/16 15:55 Blood Pressure 105/75 08/05/16 15:55 O2 Sat by Pulse Oximetry (%) 97 08/05/16 11:35 Constitutional: Yes: No Distress, Calm, Obese Cardiovascular: Yes: Regular Rate and Rhythm. No: Gallop, Murmur, Rub Respiratory: Yes: Regular, CTA Bilaterally. No: Rales, Rhonchi, Wheezes Gastrointestinal: Yes: Soft, Distention, Hypoactive Bowel Sounds. No: Tenderness Extremities: Yes: WNL Edema: Yes Edema: LLE: 2+, RLE: 2+ Labs: CBC, BMP 08/05/16 06:25 08/05/16 06:25 INR, PTT INR 1.18 (0.82-1.09) H 07/10/16 07:40 Problem List - Problems (1) Hip fracture Code(s): S72.009A - FRACTURE OF UNSP PART OF NECK OF UNSP FEMUR, INIT Qualifiers: Encounter type: initial encounter Fracture type: closed Laterality : right Qualified Code(s): S72.001A - Fracture of unspecified part of neck of right femur, initial encounter for closed fracture (2) (HFpEF) heart failure with preserved ejection fraction Code(s): I50.9 - HEART FAILURE, UNSPECIFIED (3) Bilateral leg edema Code(s): R60.0 - LOCALIZED EDEMA (4) Diabetes Code(s): E11.9 - TYPE 2 DIABETES MELLITUS WITHOUT COMPLICATIONS (5) HTN (hypertension) Code(s): I10 - ESSENTIAL (PRIMARY) HYPERTENSION (6) Hyperkalemia Code(s): E87.5 - HYPERKALEMIA (7) End stage renal failure on dialysis Code(s): N18.6 - END STAGE RENAL DISEASE Z99.2 - DEPENDENCE ON RENAL DIALYSIS (8) Obesity Code(s): E66.9 - OBESITY, UNSPECIFIED Qualifiers: Obesity severity: morbid (9) Anemia Code(s): D64.9 - ANEMIA, UNSPECIFIED (10) Hyponatremia Code(s): E87.1 - HYPO-OSMOLALITY AND HYPONATREMIA (11) UTI (urinary tract infection) Code(s): N39.0 - URINARY TRACT INFECTION, SITE NOT SPECIFIED Assessment/Plan (1) Ileus -GI following -continue NGT -UGI series shows no obstruction -monitor for improvement (2) SOB -stable -continue current management -steroid taper per pulmonary (3) Hip fracture Assessment/Plan: -pain controlled -continue oxycodone -SNF placement when medically stable Code(s): S72.009A - FRACTURE OF UNSP PART OF NECK OF UNSP FEMUR, INIT Qualifiers: Encounter type: initial encounter Fracture type: closed Laterality : right Qualified Code(s): S72.001A - Fracture of unspecified part of neck of right femur, initial encounter for closed fracture (4) (HFpEF) heart failure with preserved ejection fraction Assessment/Plan: -leg edema unchanged -continue oral lasix -HD today Code(s): I50.9 - HEART FAILURE, UNSPECIFIED (5) Bilateral leg edema Assessment/Plan: -stable Code(s): R60.0 - LOCALIZED EDEMA (6) Diabetes Assessment/Plan: -npo secondary to ileus -on IVF -SSI, holding levemir Code(s): E11.9 - TYPE 2 DIABETES MELLITUS WITHOUT COMPLICATIONS (7) HTN (hypertension) Assessment/Plan: -well controlled -continue lasix Code(s): I10 - ESSENTIAL (PRIMARY) HYPERTENSION (8) Hyperkalemia Assessment/Plan: -resolved with HD Code(s): E87.5 - HYPERKALEMIA (9) End stage renal failure on dialysis Assessment/Plan: -continue HD per nephrology Code(s): N18.6 - END STAGE RENAL DISEASE Z99.2 - DEPENDENCE ON RENAL DIALYSIS (10) Obesity Code(s): E66.9 - OBESITY, UNSPECIFIED Qualifiers: Obesity severity: morbid (11) Hyponatremia -much improved with fluid restriction (12) Sepsis -appreciate ID assistance -continue ertapenem, last day today (13) Anemia -secondary to renal function -continue epo per nephrology -s/p transfusion (14) Severe constipation -continue stool softeners
[2016-08-05] MEDS: DEXTROSE 5%-0.45% SALINE 1,000 ML IV SCH (17:44)
--- NOTE | 2016-08-05 18:08 | PN ---
GI Progress Note Subjective: UGIS failed to reveal gastric outlet obstruction No vomiting No abdominal pain Better glycemic control - Objective Vital Signs: Vital Signs Temperature 98.1 F 08/05/16 10:00 Pulse Rate 106 H 08/05/16 17:52 Respiratory Rate 20 08/05/16 17:52 Blood Pressure 110/62 08/05/16 17:52 O2 Sat by Pulse Oximetry (%) 97 08/05/16 11:35 Constitutional: Calm Cardiovascular: Yes: Pulse Irregular Respiratory: Yes: Diminished (at bases, poor insp. effort) ...Auscultate: Yes: Normoactive Bowel Sounds ...Palpate: No: Tenderness ...Percussion: No: Tympanitic Labs: CBC, BMP 08/05/16 06:25 08/05/16 06:25 INR, PTT INR 1.18 (0.82-1.09) H 07/10/16 07:40 Problem List - Problems (1) Gastric distention Assessment/Plan: Clinically improved Clamped NGT, monitor clinically. If no abdominal distention / vomiting, will pull NGT and trial clears Code(s): K31.89 - OTHER DISEASES OF STOMACH AND DUODENUM
--- NOTE | 2016-08-05 18:12 | PN ---
Progress Note, Physician History of Present Illness: pulmonary alert,tired,-resp distress. upper gi - gastric outlet obstruction - Current Medication List Current Medications: Active Medications Acetaminophen (Tylenol -) 650 mg PO Q4H PRN PRN Reason: FEVER OR PAIN Last Admin: 07/26/16 23:10 Dose: 650 mg Atorvastatin Calcium (Lipitor -) 10 mg PO HS [facility] Last Admin: 08/04/16 21:04 Dose: Not Given Cholecalciferol (Vitamin D3 -) 1,000 unit PO DAILY [facility] Last Admin: 08/05/16 10:02 Dose: Not Given Docusate Sodium (Colace -) 100 mg PO BID [facility] Last Admin: 08/05/16 10:02 Dose: Not Given Furosemide (Lasix -) 80 mg PO DAILY [facility] Last Admin: 08/05/16 10:02 Dose: Not Given Dextrose/Sodium Chloride (D5-1/2ns -) 1,000 mls @ 30 mls/hr IV ASDIR [facility] Last Admin: 08/05/16 17:44 Dose: 30 mls/hr Insulin Aspart (Novolog Vial Sliding Scale -) 1 vial SQ ACHS [facility] PRN Reason: Protocol Last Admin: 08/05/16 17:36 Dose: 1 units Insulin Detemir (Levemir Vial) 10 units SQ BID@0700,2200 [facility] Last Admin: 08/05/16 06:04 Dose: Not Given Loratadine (Claritin -) 10 mg PO DAILY PRN PRN Reason: allergy Methylprednisolone Sodium Succinate (Solu-Medrol -) 40 mg IVPB DAILY [facility] Last Admin: 08/05/16 10:02 Dose: 40 mg Multivit/Ca Carb/B Cmplx/FA/Prenat (Nephro-Annie -) 1 tablet PO DAILY [facility] Last Admin: 08/05/16 10:02 Dose: Not Given Nystatin (Mycostatin Cream -) 1 applic TP BID [facility] Last Admin: 08/05/16 11:45 Dose: 1 applic Ondansetron HCl (Zofran Injection) 4 mg IVPB Q6H PRN PRN Reason: NAUSEA Last Admin: 07/31/16 23:13 Dose: 4 mg Pantoprazole Sodium (Protonix 40mg Ivpb (Pre-Docked)) 40 mg IVPB DAILY [facility] Last Admin: 08/05/16 11:45 Dose: 40 mg Polyethylene Glycol (Miralax (For Daily Use) -) 17 gm PO BID [facility] Last Admin: 08/05/16 10:02 Dose: Not Given - Objective Vital Signs: Vital Signs Temperature 98.1 F 08/05/16 10:00 Pulse Rate 106 H 08/05/16 17:52 Respiratory Rate 20 08/05/16 17:52 Blood Pressure 110/62 08/05/16 17:52 O2 Sat by Pulse Oximetry (%) 97 08/05/16 11:35 Constitutional: Yes: Well Nourished, Calm Eyes: Yes: WNL HENT: Yes: WNL Neck: Yes: WNL Cardiovascular: Yes: Pulse Irregular, S1, S2 Respiratory: Yes: Diminished Gastrointestinal: Yes: Abdomen, Obese (mild dustention) Extremities: Yes: WNL Edema: Yes Labs: CBC, BMP 08/05/16 06:25 08/05/16 06:25 INR, PTT INR 1.18 (0.82-1.09) H 07/10/16 07:40 Problem List - Problems (1) Afib Code(s): I48.91 - UNSPECIFIED ATRIAL FIBRILLATION (2) Anemia Code(s): D64.9 - ANEMIA, UNSPECIFIED (3) Bilateral leg edema Code(s): R60.0 - LOCALIZED EDEMA (4) CHF (congestive heart failure) Code(s): I50.9 - HEART FAILURE, UNSPECIFIED (5) CKD (chronic kidney disease) Code(s): N18.9 - CHRONIC KIDNEY DISEASE, UNSPECIFIED (6) Diabetes Code(s): E11.9 - TYPE 2 DIABETES MELLITUS WITHOUT COMPLICATIONS (7) HTN (hypertension) Code(s): I10 - ESSENTIAL (PRIMARY) HYPERTENSION (8) Renal failure Code(s): N19 - UNSPECIFIED KIDNEY FAILURE (9) Sleep apnea Code(s): G47.30 - SLEEP APNEA, UNSPECIFIED (10) End stage renal failure on dialysis Code(s): N18.6 - END STAGE RENAL DISEASE Z99.2 - DEPENDENCE ON RENAL DIALYSIS Assessment/Plan A/P Acute Respiratory Distress resolved Gastric Distention -improving ESBL E Coli Bacteremia Acute COPD Exacerbation resolving ESRD on HD Morbid Obesity GEORGE Atrial Fibrillation HTN DM - NGT to ILWS - protonix - continue medrol - inhaled bronchodilators - aspiration precautions - HD per renal - rate control - resume anticoagulation when stable DR WARE
[2016-08-05] MEDS: ATORVASTATIN CA 10 MG TABLET (FP) PO SCH (21:08)
[2016-08-06] MEDS: INSULIN SLIDING SCALE (NOVOLOG) 1 VIAL SQ SCH ×4 (06:16→21:02)
[2016-08-06] MEDS: INSULIN DETEMIR 100 UNITS/ML MDV SQ SCH ×2 (06:16→21:02)
[2016-08-06 08:07] LABS: BASOPHIL 0.4 % (0-2.0); EOSINOPHIL 0.2 % (0-4.5); MCH 32.3 pg (25.7-33.7); MCHC 32.2 g/dl (32.0-36.0); MEAN CELL VOLUME 100.2 fl (80-96); NEUTROPHILS 84.2 % (42.8-82.8); PLATELET COUNT 301 K/MM3 (134-434); RDW 17.5 % (11.6-15.6); WHITE BLOOD COUNT 14.5 K/mm3 (4.0-10.0)
[2016-08-06 08:50] LABS: CALCIUM 8.1 mg/dL (8.5-10.1); CREATININE 3.1 mg/dL (0.55-1.02); MAGNESIUM 1.9 mg/dL (1.8-2.4); PHOSPHOROUS 4.3 mg/dL (2.5-4.9)
[2016-08-06] MEDS: FUROSEMIDE 40 MG TABLET (FP) PO SCH (09:32)
[2016-08-06] MEDS: ACETAMINOPHEN 325 MG TABLET (FP) PO PRN ×2 (09:32→21:03)
[2016-08-06] MEDS: CHOLECALCIFEROL (VITAMIN D3) 1,000 UNIT TABLET (FP) PO SCH (09:33)
[2016-08-06] MEDS: VITAMIN B COMP W-C 1 EA TABLET PO SCH (09:33)
[2016-08-06] MEDS: methylPREDNISolone NA SUCC 40 MG/1 ML VIAL IVPB SCH (09:33)
[2016-08-06] MEDS: PANTOPRAZOLE SODIUM 40 MG/100 ML PRE-DOCKED IVPB SCH (09:33)
[2016-08-06] MEDS: DOCUSATE SODIUM 100 MG CAPSULE (FP) PO SCH ×2 (09:41→21:02)
[2016-08-06] MEDS: POLYETHYLENE GLYCOL 3350 119 GM BTL PO SCH ×2 (09:41→21:02)
--- NOTE | 2016-08-06 11:07 | PN ---
Progress Note (short form) - Note Progress Note: doing better she pulled ngt out had 2 bms this am oob in chair via hoya lift nursing reports sacral breakdown Vital Signs Period Temp Pulse Resp BP Sys/Adams Pulse Ox Last 24 Hr 97.5 F-98.7 F 35-128 18-22 97-152/54-80 96-98 cor-rrr lungs decreased bs at bases abd soft,nt ext hip incision appears to be opening less edema CBC, BMP 08/06/16 07:08 08/06/16 07:08 Microbiology 07/29/16 12:30 Blood - Pre-Dialysis Blood Culture - Final NO GROWTH AFTER 5 DAYS INCUBATION 07/29/16 12:00 Blood - Pre-Dialysis Blood Culture - Final NO GROWTH AFTER 5 DAYS INCUBATION 07/24/16 09:00 Blood - Pre-Dialysis Blood Culture - Final NO GROWTH AFTER 5 DAYS INCUBATION 07/24/16 09:00 Blood - Pre-Dialysis Blood Culture - Final NO GROWTH AFTER 5 DAYS INCUBATION 07/22/16 16:30 Urine - Urine - Catheterized Urine Culture - Final Vr Ec Faecium 07/21/16 12:30 Blood - Peripheral Venous Blood Culture - Final Escherichia Coli Esbl [employer] Writer 07/22/16 11:27 Blood - Post-Dialysis Blood Culture - Final Escherichia Coli Esbl [employer] Service Writer 07/21/16 12:20 Blood - Peripheral Venous Blood Culture - Final Escherichia Coli Esbl [employer] Service Writer 07/17/16 12:15 Blood - Peripheral Venous Blood Culture - Final NO GROWTH AFTER 5 DAYS INCUBATION 07/17/16 12:15 Blood - Peripheral Venous Blood Culture - Final NO GROWTH AFTER 5 DAYS INCUBATION 07/16/16 15:00 Hip - Right Gram Stain - Final 07/16/16 15:00 Hip - Right Wound Culture - Final Staphylococcus Haemolyticus 07/10/16 07:00 Urine - Urine Cooper Urine Culture - Final Escherichia Coli a/p ecoli esbl bacteremia- has completed 14 days ertapenem, observe off antibiotics esrd/hd volume overload- s/p hip/humerus fracture- ortho followup, ?wound dehiscence abdominal distention- improved leukocytosis secondary to steroids wound care eval for sacral ulcer overall prognosis poor d/w Dr Lozoya
[2016-08-06] MEDS: NYSTATIN 100,000 UNIT/GM TOPICAL CREAM 15 GM TUBE TP SCH ×2 (11:11→21:14)
[2016-08-06] MEDS ORDERED: INSULIN (NOVOLOG) ASPART 100 UNITS/ML 10ML VIAL ONE ×3 (11:14→21:01)
--- NOTE | 2016-08-06 11:57 | PN ---
Progress Note, Physician Chief Complaint: Ms Mcdonnell says she is feeling better today. NGT was pulled out, she is tolerating liquid diet without difficulty. No cp, sob, n/v. - Current Medication List Current Medications: Active Medications Acetaminophen (Tylenol -) 650 mg PO Q4H PRN PRN Reason: FEVER OR PAIN Last Admin: 08/06/16 09:32 Dose: 650 mg Atorvastatin Calcium (Lipitor -) 10 mg PO HS [facility] Last Admin: 08/05/16 21:08 Dose: Not Given Cholecalciferol (Vitamin D3 -) 1,000 unit PO DAILY [facility] Last Admin: 08/06/16 09:33 Dose: 1,000 unit Docusate Sodium (Colace -) 100 mg PO BID [facility] Last Admin: 08/06/16 09:41 Dose: Not Given Furosemide (Lasix -) 80 mg PO DAILY [facility] Last Admin: 08/06/16 09:32 Dose: 80 mg Dextrose/Sodium Chloride (D5-1/2ns -) 1,000 mls @ 30 mls/hr IV ASDIR [facility] Last Admin: 08/05/16 17:44 Dose: 30 mls/hr Insulin Aspart (Novolog Vial Sliding Scale -) 1 vial SQ ACHS [facility] PRN Reason: Protocol Last Admin: 08/06/16 11:17 Dose: 5 units Insulin Detemir (Levemir Vial) 10 units SQ BID@0700,2200 [facility] Last Admin: 08/06/16 06:16 Dose: Not Given Loratadine (Claritin -) 10 mg PO DAILY PRN PRN Reason: allergy Methylprednisolone Sodium Succinate (Solu-Medrol -) 40 mg IVPB DAILY [facility] Last Admin: 08/06/16 09:33 Dose: 40 mg Multivit/Ca Carb/B Cmplx/FA/Prenat (Nephro-Annie -) 1 tablet PO DAILY [facility] Last Admin: 08/06/16 09:33 Dose: 1 tablet Nystatin (Mycostatin Cream -) 1 applic TP BID [facility] Last Admin: 08/06/16 11:11 Dose: 1 applic Ondansetron HCl (Zofran Injection) 4 mg IVPB Q6H PRN PRN Reason: NAUSEA Last Admin: 07/31/16 23:13 Dose: 4 mg Pantoprazole Sodium (Protonix 40mg Ivpb (Pre-Docked)) 40 mg IVPB DAILY [facility] Last Admin: 08/06/16 09:33 Dose: 40 mg Polyethylene Glycol (Miralax (For Daily Use) -) 17 gm PO BID [facility] Last Admin: 08/06/16 09:41 Dose: Not Given - Objective Vital Signs: Vital Signs Temperature 97.5 F L 08/06/16 08:00 Pulse Rate 110 H 08/06/16 08:00 Respiratory Rate 20 08/06/16 08:00 Blood Pressure 134/68 08/06/16 08:00 O2 Sat by Pulse Oximetry (%) 96 08/06/16 09:00 Constitutional: Yes: No Distress, Calm, Obese Cardiovascular: Yes: Regular Rate and Rhythm. No: Gallop, Murmur, Rub Respiratory: Yes: Regular, CTA Bilaterally. No: Rales, Rhonchi, Wheezes Gastrointestinal: Yes: Normal Bowel Sounds, Distention. No: Tenderness Extremities: Yes: WNL Edema: Yes Edema: LLE: 2+, RLE: 2+ Labs: CBC, BMP 08/06/16 07:08 08/06/16 07:08 INR, PTT INR 1.18 (0.82-1.09) H 07/10/16 07:40 Problem List - Problems (1) Hip fracture Code(s): S72.009A - FRACTURE OF UNSP PART OF NECK OF UNSP FEMUR, INIT Qualifiers: Qualified Code(s): S72.001A - Fracture of unspecified part of neck of right femur, initial encounter for closed fracture (2) (HFpEF) heart failure with preserved ejection fraction Code(s): I50.9 - HEART FAILURE, UNSPECIFIED (3) Bilateral leg edema Code(s): R60.0 - LOCALIZED EDEMA (4) Diabetes Code(s): E11.9 - TYPE 2 DIABETES MELLITUS WITHOUT COMPLICATIONS (5) HTN (hypertension) Code(s): I10 - ESSENTIAL (PRIMARY) HYPERTENSION (6) Hyperkalemia Code(s): E87.5 - HYPERKALEMIA (7) End stage renal failure on dialysis Code(s): N18.6 - END STAGE RENAL DISEASE Z99.2 - DEPENDENCE ON RENAL DIALYSIS (8) Obesity Code(s): E66.9 - OBESITY, UNSPECIFIED (9) Anemia Code(s): D64.9 - ANEMIA, UNSPECIFIED (10) Hyponatremia Code(s): E87.1 - HYPO-OSMOLALITY AND HYPONATREMIA (11) UTI (urinary tract infection) Code(s): N39.0 - URINARY TRACT INFECTION, SITE NOT SPECIFIED Assessment/Plan (1) Ileus -resolved -NGT removed by patient -however with bowel sounds and tolerating clear liquids -GI following, continue to monitor and increase as tolerated (2) SOB -stable -continue current management -steroid taper per pulmonary (3) Hip fracture Assessment/Plan: -continue tylenol -wll try to hold narcotics secondary to resolving ileus -orthopedic surgery re-consulted to evaluate wound -SNF placement when medically stable Code(s): S72.009A - FRACTURE OF UNSP PART OF NECK OF UNSP FEMUR, INIT Qualifiers: Encounter type: initial encounter Fracture type: closed Laterality : right Qualified Code(s): S72.001A - Fracture of unspecified part of neck of right femur, initial encounter for closed fracture (4) (HFpEF) heart failure with preserved ejection fraction Assessment/Plan: -leg edema unchanged -continue oral lasix -HD today Code(s): I50.9 - HEART FAILURE, UNSPECIFIED (5) Bilateral leg edema Assessment/Plan: -stable Code(s): R60.0 - LOCALIZED EDEMA (6) Diabetes Assessment/Plan: -diet restarted -monitor -continue SSI Code(s): E11.9 - TYPE 2 DIABETES MELLITUS WITHOUT COMPLICATIONS (7) HTN (hypertension) Assessment/Plan: -well controlled -continue lasix Code(s): I10 - ESSENTIAL (PRIMARY) HYPERTENSION (8) Hyperkalemia Assessment/Plan: -resolved with HD Code(s): E87.5 - HYPERKALEMIA (9) End stage renal failure on dialysis Assessment/Plan: -continue HD per nephrology Code(s): N18.6 - END STAGE RENAL DISEASE Z99.2 - DEPENDENCE ON RENAL DIALYSIS (10) Obesity Code(s): E66.9 - OBESITY, UNSPECIFIED Qualifiers: Obesity severity: morbid (11) Hyponatremia -much improved with fluid restriction (12) Sepsis -appreciate ID assistance -s/p full course of ertapenem (13) Anemia -secondary to renal function -continue epo per nephrology -s/p transfusion (14) Sacral decubitus ulcer -consult wound care
--- NOTE | 2016-08-06 14:41 | PN ---
GI Progress Note Subjective: Pulled NGT out this morning No vomiting Toleraitng clears No abdominal pain Had BM today - Objective Vital Signs: Vital Signs Temperature 97.5 F L 08/06/16 08:00 Pulse Rate 110 H 08/06/16 08:00 Respiratory Rate 20 08/06/16 08:00 Blood Pressure 134/68 08/06/16 08:00 O2 Sat by Pulse Oximetry (%) 96 08/06/16 09:00 Eyes: Yes: Sclera Icterus Cardiovascular: Yes: Regular Rate and Rhythm Respiratory: Yes: CTA Bilaterally Gastrointestinal Inspection: No: Distention ...Auscultate: Yes: Normoactive Bowel Sounds ...Palpate: No: Tenderness ...Percussion: No: Tympanitic Neurological: Yes: Alert, Oriented Labs: CBC, BMP 08/06/16 07:08 08/06/16 07:08 INR, PTT INR 1.18 (0.82-1.09) H 07/10/16 07:40 Problem List - Problems (1) Gastric distention Assessment/Plan: Advancing diet to full Glycemic control Minmize opiate analgesia D/C protonix Code(s): K31.89 - OTHER DISEASES OF STOMACH AND DUODENUM
--- NOTE | 2016-08-06 15:12 | PN ---
Progress Note (short form) - Note Progress Note: Renal Follow up for ESRD on HD Pt seen and examined at the bedside NGT removed tolerating clear liquid diet no N/V s/p HD yesterday Vital Signs Temperature 97.8 F 08/06/16 15:02 Pulse Rate 92 H 08/06/16 15:02 Respiratory Rate 20 08/06/16 08:00 Blood Pressure 109/58 08/06/16 15:02 O2 Sat by Pulse Oximetry (%) 96 08/06/16 09:00 Intake & Output 08/03/16 08/04/16 08/05/16 08/06/16 23:59 23:59 23:59 23:59 Intake Total 825 0 610 1085 Output Total 101 150 300 Balance 724 -244 055 0071 Weight 184 lb 6 oz 187 lb 7 oz 185 lb 7 oz 186 lb 9 oz Gen: NAD, awake and alert, NGT in place CVS: irregular, no M/R Lungs: Dec BS Lung bases, no rales Abd: soft NT/ND Ext: Trace to 1+ edema in LE Access: Left ARM AVF CBC, BMP 08/06/16 07:08 08/06/16 07:08 Current Medications Acetaminophen (Tylenol -) 650 mg PO Q4H PRN PRN Reason: FEVER OR PAIN Last Admin: 08/06/16 09:32 Dose: 650 mg Atorvastatin Calcium (Lipitor -) 10 mg PO HS [facility] Last Admin: 08/05/16 21:08 Dose: Not Given Cholecalciferol (Vitamin D3 -) 1,000 unit PO DAILY [facility] Last Admin: 08/06/16 09:33 Dose: 1,000 unit Docusate Sodium (Colace -) 100 mg PO BID [facility] Last Admin: 08/06/16 09:41 Dose: Not Given Furosemide (Lasix -) 80 mg PO DAILY [facility] Last Admin: 08/06/16 09:32 Dose: 80 mg Dextrose/Sodium Chloride (D5-1/2ns -) 1,000 mls @ 30 mls/hr IV ASDIR [facility] Last Admin: 08/05/16 17:44 Dose: 30 mls/hr Insulin Aspart (Novolog Vial Sliding Scale -) 1 vial SQ ACHS [facility] PRN Reason: Protocol Last Admin: 08/06/16 11:17 Dose: 5 units Insulin Detemir (Levemir Vial) 10 units SQ BID@0700,2200 [facility] Last Admin: 08/06/16 06:16 Dose: Not Given Loratadine (Claritin -) 10 mg PO DAILY [facility] PRN Reason: allergy Methylprednisolone Sodium Succinate (Solu-Medrol -) 40 mg IVPB DAILY [facility] Last Admin: 08/06/16 09:33 Dose: 40 mg Multivit/Ca Carb/B Cmplx/FA/Prenat (Nephro-Annie -) 1 tablet PO DAILY [facility] Last Admin: 08/06/16 09:33 Dose: 1 tablet Nystatin (Mycostatin Cream -) 1 applic TP BID [facility] Last Admin: 08/06/16 11:11 Dose: 1 applic Ondansetron HCl (Zofran Injection) 4 mg IVPB Q6H PRN PRN Reason: NAUSEA Last Admin: 07/31/16 23:13 Dose: 4 mg Polyethylene Glycol (Miralax (For Daily Use) -) 17 gm PO BID [facility] Last Admin: 08/06/16 09:41 Dose: Not Given A/P 85 year old woman with PMhx of ESRD on HD (MWF), Afib on A/C, HTN, CAD s/p stents, CHF, DM who presented s/p fall with multiple fractures. #ESRD on HD/Fluid overload s/p HD yesterday next dialysis is planned for tomorrow #Abd distension/Nausea and Vomiting NGT removed, diet advancing #Fever/Gram Negative Bacteria Completed course of Abx #Intertrochanteric hip fx/Humerus Fracture s/p Gamma Nail Arm in immobilizer Pain control #CKD Related Anemia Hgb at goal #SOB secondary to COPD/CHF steroid taper as per pulmonary Massimo Melissa DO
--- NOTE | 2016-08-06 16:27 | PN ---
Progress Note (short form) - Note Progress Note: PULMONARY PULLED OUT NGT PALE/CHRONICALLY ILL IN APPEARANCE DISTANT BREATH SOUNDS S1S2 DISTENDED LESS EDEMA LABS/MEDS/NOTES/IMAGING/MICRO REVIEWED ESBL BACTEREMIA OSAS/M.OBESITY HTN/AF/IDDM S/P RIGHT GAMMA NAIL 07/2016 O2/BRONCHODILATORS/NIPPV NEEDED/STEROIDS CHANGED TO ORAL WILL FOLLOW HD PER RENAL GI F/U R PATRICE LOPEZ Problem List - Problems (1) Hip fracture Code(s): S72.009A - FRACTURE OF UNSP PART OF NECK OF UNSP FEMUR, INIT Qualifiers: Encounter type: initial encounter Fracture type: closed Laterality : right Qualified Code(s): S72.001A - Fracture of unspecified part of neck of right femur, initial encounter for closed fracture (2) UTI (urinary tract infection) Code(s): N39.0 - URINARY TRACT INFECTION, SITE NOT SPECIFIED (3) (HFpEF) heart failure with preserved ejection fraction Code(s): I50.9 - HEART FAILURE, UNSPECIFIED (4) Acute exacerbation of CHF (congestive heart failure) Code(s): I50.9 - HEART FAILURE, UNSPECIFIED (5) Ivgli-kr-stmmvrk kidney injury Code(s): N17.9 - ACUTE KIDNEY FAILURE, UNSPECIFIED N18.9 - CHRONIC KIDNEY DISEASE, UNSPECIFIED (6) Bacteremia Code(s): R78.81 - BACTEREMIA
[2016-08-06] MEDS: ATORVASTATIN CA 10 MG TABLET (FP) PO SCH (21:02)
[2016-08-07] MEDS: INSULIN SLIDING SCALE (NOVOLOG) 1 VIAL SQ SCH ×4 (06:31→21:24)
[2016-08-07] MEDS: INSULIN DETEMIR 100 UNITS/ML MDV SQ SCH ×2 (06:33→21:25)
[2016-08-07] MEDS ORDERED: EPOETIN ALFA 10,000 UNIT/1 ML VIAL IVPUSH ONE (08:00)
[2016-08-07] MEDS: ACETAMINOPHEN 325 MG TABLET (FP) PO PRN ×3 (08:30→21:09)
[2016-08-07 08:34] LABS: BASOPHIL 0.4 % (0-2.0); EOSINOPHIL 0.3 % (0-4.5); MCH 32.2 pg (25.7-33.7); MCHC 32.3 g/dl (32.0-36.0); MEAN CELL VOLUME 99.7 fl (80-96); PLATELET COUNT 288 K/MM3 (134-434); RDW 17.7 % (11.6-15.6); WHITE BLOOD COUNT 17.3 K/mm3 (4.0-10.0)
[2016-08-07 09:01] LABS: CALCIUM 7.9 mg/dL (8.5-10.1); CREATININE 4.1 mg/dL (0.55-1.02); MAGNESIUM 1.8 mg/dL (1.8-2.4); PHOSPHOROUS 3.9 mg/dL (2.5-4.9)
--- NOTE | 2016-08-07 10:45 | PN ---
Progress Note (short form) - Note Progress Note: geovanni DCed inferior wounds well-healed superior wounf has gapped open about a centimeter with fibrinous granulation tissue at its base. no deep space continuation plan: w-->d dressing changes daily shoulder immobilizer on RUE DCed. minimal pain with PROM right shoulder Plan: new xray right shoulder, no need for immobilizaion
--- NOTE | 2016-08-07 10:46 | PN ---
Progress Note (short form) - Note Progress Note: Renal Follow up for ESRD on HD Pt seen and examined during dialysis pt clotted the filter and had to be restarted will give heparin bolous and monitor Goal UF is 3L BP is stable pt without complaints Vital Signs Temperature 98.2 F 08/07/16 05:39 Pulse Rate 86 08/07/16 09:00 Respiratory Rate 18 08/07/16 09:00 Blood Pressure 131/107 08/07/16 09:00 O2 Sat by Pulse Oximetry (%) 97 08/06/16 21:00 Intake & Output 08/04/16 08/05/16 08/06/16 08/07/16 23:59 23:59 23:59 23:59 Intake Total 0 610 1565 100 Output Total 150 300 Balance -360 879 9684 100 Weight 187 lb 7 oz 185 lb 7 oz 186 lb 9 oz 183 lb 3 oz Gen: NAD, awake and alert, NGT in place CVS: irregular, no M/R Lungs: Dec BS Lung bases, no rales Abd: soft NT/ND Ext: Trace to 1+ edema in LE Access: Left ARM AVF CBC, BMP 08/07/16 08:00 08/07/16 08:00 Current Medications Acetaminophen (Tylenol -) 650 mg PO Q4H PRN PRN Reason: FEVER OR PAIN Last Admin: 08/06/16 21:03 Dose: 650 mg Atorvastatin Calcium (Lipitor -) 10 mg PO HS [facility] Last Admin: 08/06/16 21:02 Dose: 10 mg Cholecalciferol (Vitamin D3 -) 1,000 unit PO DAILY [facility] Last Admin: 08/06/16 09:33 Dose: 1,000 unit Docusate Sodium (Colace -) 100 mg PO BID [facility] Last Admin: 08/06/16 21:02 Dose: Not Given Furosemide (Lasix -) 80 mg PO DAILY [facility] Last Admin: 08/06/16 09:32 Dose: 80 mg Heparin Sodium (Porcine) (Heparin -) 1,000 unit IVPUSH ONCE ONE Stop: 08/07/16 10:45 Insulin Aspart (Novolog Vial Sliding Scale -) 1 vial SQ ACHS [facility] PRN Reason: Protocol Last Admin: 08/07/16 06:31 Dose: Not Given Insulin Detemir (Levemir Vial) 10 units SQ BID@0700,2200 [facility] Last Admin: 08/07/16 06:33 Dose: 10 units Loratadine (Claritin -) 10 mg PO DAILY PRN PRN Reason: allergy Multivit/Ca Carb/B Cmplx/FA/Prenat (Nephro-Annie -) 1 tablet PO DAILY [facility] Last Admin: 08/06/16 09:33 Dose: 1 tablet Nystatin (Mycostatin Cream -) 1 applic TP BID [facility] Last Admin: 08/06/16 21:14 Dose: 1 applic Ondansetron HCl (Zofran Injection) 4 mg IVPB Q6H PRN PRN Reason: NAUSEA Last Admin: 07/31/16 23:13 Dose: 4 mg Polyethylene Glycol (Miralax (For Daily Use) -) 17 gm PO BID [facility] Last Admin: 08/06/16 21:02 Dose: Not Given Prednisone (Deltasone -) 30 mg PO DAILY [facility] A/P 85 year old woman with PMhx of ESRD on HD (MWF), Afib on A/C, HTN, CAD s/p stents, CHF, DM who presented s/p fall with multiple fractures. #ESRD on HD/Fluid overload HD today with goal UF 3L Continue fluid restriction volume status improved #Abd distension/Nausea and Vomiting on regular diet GI follow up #Fever/Gram Negative Bacteria Completed course of Abx #Intertrochanteric hip fx/Humerus Fracture s/p Gamma Nail Arm in immobilizer Pain control #CKD Related Anemia Hgb at goal #SOB secondary to COPD/CHF steroid taper as per pulmonary Massimo Melissa DO
--- NOTE | 2016-08-07 11:44 | PN ---
Progress Note (short form) - Note Progress Note: on HD just seen by ORTHO and geovanni removed Vital Signs Period Temp Pulse Resp BP Sys/Adams Pulse Ox Last 24 Hr 97.8 F-98.2 F 52-97 18-20 105-141/36-107 97 cor-rrr lungs decreased bs at bases abd softer, nt refuses exam of her hip wound and arm CBC, BMP 08/07/16 08:00 08/07/16 08:00 Current Medications Acetaminophen (Tylenol -) 650 mg PO Q4H PRN PRN Reason: FEVER OR PAIN Last Admin: 08/06/16 21:03 Dose: 650 mg Atorvastatin Calcium (Lipitor -) 10 mg PO HS [facility] Last Admin: 08/06/16 21:02 Dose: 10 mg Cholecalciferol (Vitamin D3 -) 1,000 unit PO DAILY [facility] Last Admin: 08/06/16 09:33 Dose: 1,000 unit Docusate Sodium (Colace -) 100 mg PO BID [facility] Last Admin: 08/06/16 21:02 Dose: Not Given Furosemide (Lasix -) 80 mg PO DAILY [facility] Last Admin: 08/06/16 09:32 Dose: 80 mg Heparin Sodium (Porcine) (Heparin -) 1,000 unit IVPUSH ONCE ONE Stop: 08/07/16 11:46 Insulin Aspart (Novolog Vial Sliding Scale -) 1 vial SQ ACHS [facility] PRN Reason: Protocol Last Admin: 08/07/16 06:31 Dose: Not Given Insulin Detemir (Levemir Vial) 10 units SQ BID@0700,2200 [facility] Last Admin: 08/07/16 06:33 Dose: 10 units Loratadine (Claritin -) 10 mg PO DAILY PRN PRN Reason: allergy Multivit/Ca Carb/B Cmplx/FA/Prenat (Nephro-Annie -) 1 tablet PO DAILY [facility] Last Admin: 08/06/16 09:33 Dose: 1 tablet Nystatin (Mycostatin Cream -) 1 applic TP BID [facility] Last Admin: 08/06/16 21:14 Dose: 1 applic Ondansetron HCl (Zofran Injection) 4 mg IVPB Q6H PRN PRN Reason: NAUSEA Last Admin: 07/31/16 23:13 Dose: 4 mg Polyethylene Glycol (Miralax (For Daily Use) -) 17 gm PO BID [facility] Last Admin: 08/06/16 21:02 Dose: Not Given Prednisone (Deltasone -) 30 mg PO DAILY [facility] a/p ecoli esbl bacteremia- has completed 14 days ertapenem, observe off antibiotics esrd/hd volume overload- s/p hip/humerus fracture- ortho followup, per ortho superficial wound abdominal distention- improved, ngt out leukocytosis secondary to steroids wound care eval for sacral ulcer overall prognosis poor
[2016-08-07] MEDS ORDERED: HEPARIN NA (PORCINE) 5,000 UNITS/ML 1ML VIAL IVPUSH ONE (11:45)
[2016-08-07] MEDS: NYSTATIN 100,000 UNIT/GM TOPICAL CREAM 15 GM TUBE TP SCH ×2 (13:20→22:07)
--- NOTE | 2016-08-07 13:23 | PN ---
Progress Note, Physician Chief Complaint: Ms Mcdonnell says she is tired after HD. No cp, sob, n/v. - Current Medication List Current Medications: Active Medications Acetaminophen (Tylenol -) 650 mg PO Q4H PRN PRN Reason: FEVER OR PAIN Last Admin: 08/06/16 21:03 Dose: 650 mg Atorvastatin Calcium (Lipitor -) 10 mg PO HS [facility] Last Admin: 08/06/16 21:02 Dose: 10 mg Cholecalciferol (Vitamin D3 -) 1,000 unit PO DAILY [facility] Last Admin: 08/06/16 09:33 Dose: 1,000 unit Docusate Sodium (Colace -) 100 mg PO BID [facility] Last Admin: 08/06/16 21:02 Dose: Not Given Furosemide (Lasix -) 80 mg PO DAILY [facility] Last Admin: 08/06/16 09:32 Dose: 80 mg Insulin Aspart (Novolog Vial Sliding Scale -) 1 vial SQ ACHS [facility] PRN Reason: Protocol Last Admin: 08/07/16 11:00 Dose: Not Given Insulin Detemir (Levemir Vial) 10 units SQ BID@0700,2200 [facility] Last Admin: 08/07/16 06:33 Dose: 10 units Loratadine (Claritin -) 10 mg PO DAILY [facility]N PRN Reason: allergy Multivit/Ca Carb/B Cmplx/FA/Prenat (Nephro-Annie -) 1 tablet PO DAILY [facility] Last Admin: 08/06/16 09:33 Dose: 1 tablet Nystatin (Mycostatin Cream -) 1 applic TP BID [facility] Last Admin: 08/06/16 21:14 Dose: 1 applic Ondansetron HCl (Zofran Injection) 4 mg IVPB Q6H PRN PRN Reason: NAUSEA Last Admin: 07/31/16 23:13 Dose: 4 mg Polyethylene Glycol (Miralax (For Daily Use) -) 17 gm PO BID [facility] Last Admin: 08/06/16 21:02 Dose: Not Given Prednisone (Deltasone -) 30 mg PO DAILY [facility] - Objective Vital Signs: Vital Signs Temperature 98.2 F 08/07/16 05:39 Pulse Rate 97 H 08/07/16 11:00 Respiratory Rate 18 08/07/16 11:00 Blood Pressure 141/69 08/07/16 11:00 O2 Sat by Pulse Oximetry (%) 97 08/06/16 21:00 Constitutional: Yes: No Distress, Calm, Obese Cardiovascular: Yes: Regular Rate and Rhythm. No: Gallop, Murmur, Rub Respiratory: Yes: Regular, CTA Bilaterally. No: Rales, Rhonchi, Wheezes Gastrointestinal: Yes: Normal Bowel Sounds, Soft. No: Distention, Tenderness Extremities: Yes: WNL Edema: Yes Edema: LLE: 2+, RLE: 2+ Labs: CBC, BMP 08/07/16 08:00 INR, PTT INR 1.18 (0.82-1.09) H 07/10/16 07:40 Problem List - Problems (1) Hip fracture Code(s): S72.009A - FRACTURE OF UNSP PART OF NECK OF UNSP FEMUR, INIT Qualifiers: Encounter type: initial encounter Fracture type: closed Laterality : right Qualified Code(s): S72.001A - Fracture of unspecified part of neck of right femur, initial encounter for closed fracture (2) (HFpEF) heart failure with preserved ejection fraction Code(s): I50.9 - HEART FAILURE, UNSPECIFIED (3) Bilateral leg edema Code(s): R60.0 - LOCALIZED EDEMA (4) Diabetes Code(s): E11.9 - TYPE 2 DIABETES MELLITUS WITHOUT COMPLICATIONS (5) HTN (hypertension) Code(s): I10 - ESSENTIAL (PRIMARY) HYPERTENSION (6) Hyperkalemia Code(s): E87.5 - HYPERKALEMIA (7) End stage renal failure on dialysis Code(s): N18.6 - END STAGE RENAL DISEASE Z99.2 - DEPENDENCE ON RENAL DIALYSIS (8) Obesity Code(s): E66.9 - OBESITY, UNSPECIFIED Qualifiers: Obesity severity: morbid (9) Anemia Code(s): D64.9 - ANEMIA, UNSPECIFIED (10) Hyponatremia Code(s): E87.1 - HYPO-OSMOLALITY AND HYPONATREMIA (11) UTI (urinary tract infection) Code(s): N39.0 - URINARY TRACT INFECTION, SITE NOT SPECIFIED Assessment/Plan (1) Ileus -resolved -GI following -advanced to full liquid (2) SOB -stable -continue current management -steroid taper per pulmonary (3) Hip fracture Assessment/Plan: -continue tylenol -appreciate ortho assistance -staple removed -repeat x-rays Code(s): S72.009A - FRACTURE OF UNSP PART OF NECK OF UNSP FEMUR, INIT Qualifiers: Encounter type: initial encounter Fracture type: closed Laterality : right Qualified Code(s): S72.001A - Fracture of unspecified part of neck of right femur, initial encounter for closed fracture (4) (HFpEF) heart failure with preserved ejection fraction Assessment/Plan: -leg edema unchanged -continue oral lasix -HD today Code(s): I50.9 - HEART FAILURE, UNSPECIFIED (5) Bilateral leg edema Assessment/Plan: -stable Code(s): R60.0 - LOCALIZED EDEMA (6) Diabetes Assessment/Plan: -diet restarted -monitor -continue SSI Code(s): E11.9 - TYPE 2 DIABETES MELLITUS WITHOUT COMPLICATIONS (7) HTN (hypertension) Assessment/Plan: -well controlled -continue lasix Code(s): I10 - ESSENTIAL (PRIMARY) HYPERTENSION (8) Hyperkalemia Assessment/Plan: -resolved with HD Code(s): E87.5 - HYPERKALEMIA (9) End stage renal failure on dialysis Assessment/Plan: -continue HD per nephrology Code(s): N18.6 - END STAGE RENAL DISEASE Z99.2 - DEPENDENCE ON RENAL DIALYSIS (10) Obesity Code(s): E66.9 - OBESITY, UNSPECIFIED Qualifiers: Obesity severity: morbid (11) Hyponatremia -much improved with fluid restriction (12) Sepsis -appreciate ID assistance -s/p full course of ertapenem (13) Anemia -secondary to renal function -continue epo per nephrology -s/p transfusion (14) Sacral decubitus ulcer -wound care consulted
[2016-08-07] MEDS: DOCUSATE SODIUM 100 MG CAPSULE (FP) PO SCH ×2 (13:34→21:23)
[2016-08-07] MEDS: POLYETHYLENE GLYCOL 3350 119 GM BTL PO SCH ×2 (13:34→21:25)
[2016-08-07] MEDS: predniSONE 10 MG TABLET (UD) PO SCH (13:37)
[2016-08-07] MEDS: CHOLECALCIFEROL (VITAMIN D3) 1,000 UNIT TABLET (FP) PO SCH (13:37)
[2016-08-07] MEDS: VITAMIN B COMP W-C 1 EA TABLET PO SCH (13:37)
[2016-08-07] MEDS: FUROSEMIDE 40 MG TABLET (FP) PO SCH (13:37)
[2016-08-07 13:42] LABS: CREATININE 1.2 mg/dL (0.55-1.02)
--- NOTE | 2016-08-07 17:02 | PN ---
Progress Note (short form) - Note Progress Note: CC: s/p hip fracture s: no cp palps dizzy sob. + back discomfort o: Current Medications Acetaminophen (Tylenol -) 650 mg PO Q4H PRN PRN Reason: FEVER OR PAIN Last Admin: 08/07/16 15:58 Dose: 650 mg Atorvastatin Calcium (Lipitor -) 10 mg PO HS [facility] Last Admin: 08/06/16 21:02 Dose: 10 mg Cholecalciferol (Vitamin D3 -) 1,000 unit PO DAILY [facility] Last Admin: 08/07/16 13:37 Dose: 1,000 unit Docusate Sodium (Colace -) 100 mg PO BID [facility] Last Admin: 08/07/16 13:34 Dose: Not Given Furosemide (Lasix -) 80 mg PO DAILY [facility] Last Admin: 08/07/16 13:37 Dose: 80 mg Insulin Aspart (Novolog Vial Sliding Scale -) 1 vial SQ ACHS [facility] PRN Reason: Protocol Last Admin: 08/07/16 11:00 Dose: Not Given Insulin Detemir (Levemir Vial) 10 units SQ BID@0700,2200 [facility] Last Admin: 08/07/16 06:33 Dose: 10 units Loratadine (Claritin -) 10 mg PO DAILY PRN PRN Reason: allergy Multivit/Ca Carb/B Cmplx/FA/Prenat (Nephro-Annie -) 1 tablet PO DAILY [facility] Last Admin: 08/07/16 13:37 Dose: 1 tablet Nystatin (Mycostatin Cream -) 1 applic TP BID [facility] Last Admin: 08/07/16 13:20 Dose: 1 applic Ondansetron HCl (Zofran Injection) 4 mg IVPB Q6H PRN PRN Reason: NAUSEA Last Admin: 07/31/16 23:13 Dose: 4 mg Polyethylene Glycol (Miralax (For Daily Use) -) 17 gm PO BID [facility] Last Admin: 08/07/16 13:34 Dose: Not Given Prednisone (Deltasone -) 30 mg PO DAILY [facility] Last Admin: 08/07/16 13:37 Dose: 30 mg Vital Signs - 24 hr 08/06/16 08/06/16 08/06/16 19:03 21:00 23:00 Temperature 98.2 F Pulse Rate 92 H Respiratory 20 18 Rate Blood Pressure 107/60 106/66 O2 Sat by Pulse 97 Oximetry (%) 08/07/16 08/07/16 08/07/16 05:39 07:45 08:00 Temperature 98.2 F Pulse Rate 90 89 92 H Respiratory 20 18 18 Rate Blood Pressure 105/60 119/48 125/54 O2 Sat by Pulse Oximetry (%) 08/07/16 08/07/16 08/07/16 08:30 09:00 09:30 Temperature Pulse Rate 80 86 52 L Respiratory 18 18 18 Rate Blood Pressure 133/68 131/107 126/36 O2 Sat by Pulse Oximetry (%) 08/07/16 08/07/16 08/07/16 10:00 10:30 11:00 Temperature Pulse Rate 88 85 97 H Respiratory 18 18 18 Rate Blood Pressure 141/72 129/88 141/69 O2 Sat by Pulse Oximetry (%) 08/07/16 08/07/16 08/07/16 11:20 12:35 13:15 Temperature Pulse Rate 101 H 95 H Respiratory 18 18 Rate Blood Pressure 137/74 150/71 O2 Sat by Pulse 97 Oximetry (%) 08/07/16 13:38 Temperature 98.2 F Pulse Rate 98 H Respiratory Rate Blood Pressure 145/60 O2 Sat by Pulse Oximetry (%) Intake & Output 08/05/16 08/06/16 08/07/16 08/08/16 07:59 07:59 07:59 07:59 Intake Total 880 262 7957 450 Output Total 300 100 Balance 60 510 1305 450 Weight 185 lb 7 oz 186 lb 9 oz 183 lb 3 oz NAD. calm JVD difficult to assess due to neck habitus, but does not appear elevated RRR nl S1 S2. No S3, S4 or mrg scattered exp wheeze,nl eff + BS, soft, obese, ND, NT Venous stasis changes with 1+ dependent LE edema, significantly improved No jaundice, no diaphoresis. aaox3 CBC, BMP 08/07/16 08:00 08/07/16 12:00 Laboratory Tests 08/07/16 08:00 Magnesium 1.8 echo 08/2015: nl lv/rv. mild lae. valves wnl. no rvsp. A/p: 85 yo with CAD s/p AZUL to RCA '14, Afib on eliquis, dCHF, HTN, HL, IDDM, GEORGE declines CPAP and CKD on HD who presents s/p fall c/b hip fracture. CAD s/p AZUL to RCA in 03/2014 - on statin. not on ASA b/c of hi risk gib and on AC. - remains stable, no anginal symptoms, nl lvef Afib - off AV alexandr blockade due to prior bradycardia (AT/AFL with slow conduction). - rate here is overall controlled - AC with eliquis (details of decision in prior notes). However, currently held for NGT placement and in setting of ileus/NPO. Would resume eliquis now that she can take PO. chronic HFPEF, chronic venous insuff: - continued volume mgm't with HD per renal. Signficant improvement in overall edema. HTN - stable off meds here. Hypotension has resolved. ESRD on HD/hyperkalemia/hyponatremia - volume mgm't with HD and po lasix per renal. GEORGE on CPAP - stable sepsis, - resolved. mgm't per pmd, id. s/p right IM gamma nail, right distal humerus fx - mgm't per surgery, pmd
[2016-08-07] MEDS: ATORVASTATIN CA 10 MG TABLET (FP) PO SCH (21:10)
[2016-08-07] MEDS: APIXABAN 2.5 MG TABLET PO SCH (22:02)
[2016-08-08] MEDS: INSULIN SLIDING SCALE (NOVOLOG) 1 VIAL SQ SCH ×4 (06:18→21:47)
[2016-08-08] MEDS: INSULIN DETEMIR 100 UNITS/ML MDV SQ SCH ×2 (06:55→21:49)
[2016-08-08 07:58] LABS: BASOPHIL 0.4 % (0-2.0); EOSINOPHIL 0.1 % (0-4.5); MCH 32.3 pg (25.7-33.7); MCHC 32.1 g/dl (32.0-36.0); MEAN CELL VOLUME 100.5 fl (80-96); MEAN PLT VOLUME 9.2 fl (7.5-11.1); NEUTROPHILS 84.8 % (42.8-82.8); PLATELET COUNT 240 K/MM3 (134-434); RDW 17.5 % (11.6-15.6); WHITE BLOOD COUNT 17.2 K/mm3 (4.0-10.0)
[2016-08-08 08:25] LABS: CALCIUM 7.6 mg/dL (8.5-10.1); CREATININE 2.9 mg/dL (0.55-1.02)
[2016-08-08] MEDS: VITAMIN B COMP W-C 1 EA TABLET PO SCH (10:09)
[2016-08-08] MEDS: predniSONE 10 MG TABLET (UD) PO SCH (10:09)
[2016-08-08] MEDS: CHOLECALCIFEROL (VITAMIN D3) 1,000 UNIT TABLET (FP) PO SCH (10:09)
[2016-08-08] MEDS: NYSTATIN 100,000 UNIT/GM TOPICAL CREAM 15 GM TUBE TP SCH ×2 (10:10→22:01)
[2016-08-08] MEDS: APIXABAN 2.5 MG TABLET PO SCH ×2 (10:10→21:53)
[2016-08-08] MEDS: FUROSEMIDE 40 MG TABLET (FP) PO SCH (10:10)
[2016-08-08] MEDS: POLYETHYLENE GLYCOL 3350 119 GM BTL PO SCH ×2 (10:10→21:49)
[2016-08-08] MEDS: DOCUSATE SODIUM 100 MG CAPSULE (FP) PO SCH ×2 (10:10→21:50)
--- NOTE | 2016-08-08 11:24 | PN ---
Progress Note (short form) - Note Progress Note: s: no cp palps dizzy sob o: Vital Signs Period Temp Pulse Resp BP Sys/Adams Pulse Ox Last 24 Hr 97.9 F-98.4 F 88-101 18-20 118-150/50-71 97-98 NAD. calm JVD difficult to assess due to neck habitus, but does not appear elevated RRR nl S1 S2. No S3, S4 or mrg scattered exp wheeze,nl eff + BS, soft, obese, ND, NT Venous stasis changes with trace LE edema No jaundice, no diaphoresis. aaox3 Current Medications Generic Name Dose Route Start Last Admin Trade Name Freq PRN Reason Stop Dose Admin Acetaminophen 650 mg 07/10/16 16:54 08/07/16 21:09 Tylenol - PO 650 mg Q4H PRN Administration FEVER OR PAIN Apixaban 2.5 mg 08/07/16 22:00 08/08/16 10:10 Eliquis - PO 2.5 mg BID [facility] Administration Atorvastatin Calcium 10 mg 07/10/16 22:00 08/07/16 21:10 Lipitor - PO 10 mg HS [facility] Administration Cholecalciferol 1,000 unit 07/12/16 17:00 08/08/16 10:09 Vitamin D3 - PO 1,000 unit DAILY [facility] Administration Docusate Sodium 100 mg 07/10/16 22:00 08/08/16 10:10 Colace - PO Not Given BID [facility] Furosemide 80 mg 07/12/16 17:00 08/08/16 10:10 Lasix - PO 80 mg DAILY [facility] Administration Insulin Aspart 1 vial 07/10/16 22:00 08/08/16 06:18 Novolog Vial Sliding Scale - SQ Not Given ACHS [facility] Protocol Insulin Detemir 10 units 08/01/16 22:00 08/08/16 06:55 Levemir Vial SQ 10 units BID@0700,2200 [facility] Administration Loratadine 10 mg 07/10/16 16:54 Claritin - PO DAILY PRN allergy Multivit/Ca Carb/B Cmplx/FA/Prenat 1 tablet 07/24/16 10:00 08/08/16 10:09 Nephro-Annie - PO 1 tablet DAILY [facility] Administration Nystatin 1 applic 07/24/16 22:00 08/08/16 10:10 Mycostatin Cream - TP 1 applic BID [facility] Administration Ondansetron HCl 4 mg 07/10/16 16:54 07/31/16 23:13 Zofran Injection IVPB 4 mg Q6H PRN Administration NAUSEA Polyethylene Glycol 17 gm 07/18/16 10:00 08/08/16 10:10 Miralax (For Daily Use) - PO Not Given BID [facility] Prednisone 30 mg 08/07/16 10:00 08/08/16 10:09 Deltasone - PO 30 mg DAILY [facility] Administration CBC, BMP 08/08/16 06:30 08/08/16 06:30 echo 08/2015: nl lv/rv. mild lae. valves wnl. no rvsp. A/p: 85 yo with CAD s/p AZUL to RCA '14, Afib on eliquis, dCHF, HTN, HL, IDDM, GEORGE declines CPAP and CKD on HD who presents s/p fall c/b hip fracture. CAD s/p AZUL to RCA in 03/2014 - on statin. not on ASA b/c of hi risk gib and on AC. - remains stable, no anginal symptoms, nl lvef Afib - off AV alexandr blockade due to prior bradycardia (AT/AFL with slow conduction). - rate here is overall controlled - on AC with eliquis (details of decision in prior notes). chronic HFPEF, chronic venous insuff: - continued volume mgm't with HD per renal. Significant improvement in overall edema. HTN - stable off meds here. Hypotension has resolved. ESRD on HD/hyperkalemia/hyponatremia - volume mgm't with HD and po lasix per renal. GEORGE on CPAP - stable sepsis, - resolved. mgm't per pmd, id. s/p right IM gamma nail, right distal humerus fx - mgm't per surgery, pmd ileus: -GI following, now on liquid diet
--- NOTE | 2016-08-08 13:18 | PN ---
Progress Note, Physician Chief Complaint: The patient is lying in bed. has not been much out of bed. Has Sacral decubitus ulcers. Awaiting Surgical evaluation Next HD in AM - Current Medication List Current Medications: Active Medications Acetaminophen (Tylenol -) 650 mg PO Q4H PRN PRN Reason: FEVER OR PAIN Last Admin: 08/07/16 21:09 Dose: 650 mg Apixaban (Eliquis -) 2.5 mg PO BID [facility] Last Admin: 08/08/16 10:10 Dose: 2.5 mg Atorvastatin Calcium (Lipitor -) 10 mg PO HS [facility] Last Admin: 08/07/16 21:10 Dose: 10 mg Cholecalciferol (Vitamin D3 -) 1,000 unit PO DAILY [facility] Last Admin: 08/08/16 10:09 Dose: 1,000 unit Docusate Sodium (Colace -) 100 mg PO BID [facility] Last Admin: 08/08/16 10:10 Dose: Not Given Furosemide (Lasix -) 80 mg PO DAILY [facility] Last Admin: 08/08/16 10:10 Dose: 80 mg Insulin Aspart (Novolog Vial Sliding Scale -) 1 vial SQ ACHS [facility] PRN Reason: Protocol Last Admin: 08/08/16 11:43 Dose: 5 units Insulin Detemir (Levemir Vial) 10 units SQ BID@0700,2200 [facility] Last Admin: 08/08/16 06:55 Dose: 10 units Loratadine (Claritin -) 10 mg PO DAILY PRN PRN Reason: allergy Multivit/Ca Carb/B Cmplx/FA/Prenat (Nephro-Annie -) 1 tablet PO DAILY [facility] Last Admin: 08/08/16 10:09 Dose: 1 tablet Nystatin (Mycostatin Cream -) 1 applic TP BID [facility] Last Admin: 08/08/16 10:10 Dose: 1 applic Ondansetron HCl (Zofran Injection) 4 mg IVPB Q6H PRN PRN Reason: NAUSEA Last Admin: 07/31/16 23:13 Dose: 4 mg Polyethylene Glycol (Miralax (For Daily Use) -) 17 gm PO BID [facility] Last Admin: 08/08/16 10:10 Dose: Not Given Prednisone (Deltasone -) 30 mg PO DAILY [facility] Last Admin: 08/08/16 10:09 Dose: 30 mg - Objective Vital Signs: Vital Signs Temperature 98.2 F 08/08/16 08:36 Pulse Rate 88 08/08/16 08:36 Respiratory Rate 18 08/08/16 08:36 Blood Pressure 118/70 08/08/16 08:36 O2 Sat by Pulse Oximetry (%) 98 08/08/16 08:32 Constitutional: Yes: Well Nourished, Calm Eyes: Yes: WNL HENT: Yes: Atraumatic Neck: Yes: Supple, Trachea Midline Cardiovascular: Yes: S1, S2 Respiratory: Yes: CTA Bilaterally Gastrointestinal: Yes: Normal Bowel Sounds, Soft, Abdomen, Obese Musculoskeletal: Yes: Back Pain Edema: Yes Edema: LLE: Trace, RLE: Trace Labs: CBC, BMP 08/08/16 06:30 08/08/16 06:30 INR, PTT INR 1.18 (0.82-1.09) H 07/10/16 07:40 Problem List - Problems (1) Hip fracture Code(s): S72.009A - FRACTURE OF UNSP PART OF NECK OF UNSP FEMUR, INIT Qualifiers: Encounter type: initial encounter Fracture type: closed Laterality : right Qualified Code(s): S72.001A - Fracture of unspecified part of neck of right femur, initial encounter for closed fracture (2) [id number] kidney injury Code(s): N17.9 - ACUTE KIDNEY FAILURE, UNSPECIFIED N18.9 - CHRONIC KIDNEY DISEASE, UNSPECIFIED (3) Afib Code(s): I48.91 - UNSPECIFIED ATRIAL FIBRILLATION (4) Anemia Code(s): D64.9 - ANEMIA, UNSPECIFIED (5) CKD (chronic kidney disease) Code(s): N18.9 - CHRONIC KIDNEY DISEASE, UNSPECIFIED (6) Coronary arteriosclerosis Code(s): I25.10 - ATHSCL HEART DISEASE OF [place] CORONARY ARTERY W/O ANG PCTRS (7) Diabetes Code(s): E11.9 - TYPE 2 DIABETES MELLITUS WITHOUT COMPLICATIONS (8) Edema Code(s): R60.9 - EDEMA, UNSPECIFIED (9) End stage renal failure on dialysis Code(s): N18.6 - END STAGE RENAL DISEASE Z99.2 - DEPENDENCE ON RENAL DIALYSIS (10) Obesity Code(s): E66.9 - OBESITY, UNSPECIFIED Qualifiers: Obesity severity: morbid Assessment/Plan Patient with ESRD, on HFD admitted with traumatic Fx of the right hip and right humerus. S/p ORIF right hip S/p GNB sepsis. S/p Gastric outlet obstruction Has decubitus ulcers... Awaiting surgical evaluation Next HD AM
--- NOTE | 2016-08-08 13:47 | PN ---
Progress Note, Physician Chief Complaint: Ms Mcdonnell says she is feels like nothing is being done. Denies cp, sob, n/v. Complains that HD goes on too long and she "can't take it". Is eating, but states currently wants to stay on the liquid diet. - Current Medication List Current Medications: Active Medications Acetaminophen (Tylenol -) 650 mg PO Q4H PRN PRN Reason: FEVER OR PAIN Last Admin: 08/07/16 21:09 Dose: 650 mg Apixaban (Eliquis -) 2.5 mg PO BID [facility] Last Admin: 08/08/16 10:10 Dose: 2.5 mg Atorvastatin Calcium (Lipitor -) 10 mg PO HS [facility] Last Admin: 08/07/16 21:10 Dose: 10 mg Cholecalciferol (Vitamin D3 -) 1,000 unit PO DAILY [facility] Last Admin: 08/08/16 10:09 Dose: 1,000 unit Docusate Sodium (Colace -) 100 mg PO BID [facility] Last Admin: 08/08/16 10:10 Dose: Not Given Epoetin Abraham (Procrit -) 10,000 unit SQ ONCE ONE Stop: 08/09/16 13:24 Furosemide (Lasix -) 80 mg PO DAILY [facility] Last Admin: 08/08/16 10:10 Dose: 80 mg Insulin Aspart (Novolog Vial Sliding Scale -) 1 vial SQ ACHS [facility] PRN Reason: Protocol Last Admin: 08/08/16 11:43 Dose: 5 units Insulin Detemir (Levemir Vial) 10 units SQ BID@0700,2200 [facility] Last Admin: 08/08/16 06:55 Dose: 10 units Loratadine (Claritin -) 10 mg PO DAILY PRN PRN Reason: allergy Multivit/Ca Carb/B Cmplx/FA/Prenat (Nephro-Annie -) 1 tablet PO DAILY [facility] Last Admin: 08/08/16 10:09 Dose: 1 tablet Nystatin (Mycostatin Cream -) 1 applic TP BID [facility] Last Admin: 08/08/16 10:10 Dose: 1 applic Ondansetron HCl (Zofran Injection) 4 mg IVPB Q6H PRN PRN Reason: NAUSEA Last Admin: 07/31/16 23:13 Dose: 4 mg Polyethylene Glycol (Miralax (For Daily Use) -) 17 gm PO BID [facility] Last Admin: 03/02/17 10:10 Dose: Not Given Prednisone (Deltasone -) 30 mg PO DAILY [facility] Last Admin: 08/08/16 10:09 Dose: 30 mg - Objective Vital Signs: Vital Signs Temperature 98.2 F 08/08/16 13:37 Pulse Rate 97 H 08/08/16 13:37 Respiratory Rate 18 08/08/16 08:36 Blood Pressure 111/55 08/08/16 13:37 O2 Sat by Pulse Oximetry (%) 98 08/08/16 08:32 Constitutional: Yes: No Distress, Calm, Obese Cardiovascular: Yes: Regular Rate and Rhythm. No: Gallop, Murmur, Rub Respiratory: Yes: Regular, CTA Bilaterally. No: Rales, Rhonchi, Wheezes Gastrointestinal: Yes: Normal Bowel Sounds, Soft. No: Distention, Tenderness Extremities: Yes: WNL Edema: Yes Edema: LLE: 2+, RLE: 2+ Labs: CBC, BMP 08/08/16 06:30 08/08/16 06:30 INR, PTT INR 1.18 (0.82-1.09) H 07/10/16 07:40 Problem List - Problems (1) Hip fracture Code(s): S72.009A - FRACTURE OF UNSP PART OF NECK OF UNSP FEMUR, INIT Qualifiers: Encounter type: initial encounter Fracture type: closed Laterality : right Qualified Code(s): S72.001A - Fracture of unspecified part of neck of right femur, initial encounter for closed fracture (2) (HFpEF) heart failure with preserved ejection fraction Code(s): I50.9 - HEART FAILURE, UNSPECIFIED (3) Bilateral leg edema Code(s): R60.0 - LOCALIZED EDEMA (4) Diabetes Code(s): E11.9 - TYPE 2 DIABETES MELLITUS WITHOUT COMPLICATIONS (5) HTN (hypertension) Code(s): I10 - ESSENTIAL (PRIMARY) HYPERTENSION (6) Hyperkalemia Code(s): E87.5 - HYPERKALEMIA (7) End stage renal failure on dialysis Code(s): N18.6 - END STAGE RENAL DISEASE Z99.2 - DEPENDENCE ON RENAL DIALYSIS (8) Obesity Code(s): E66.9 - OBESITY, UNSPECIFIED Qualifiers: Obesity severity: morbid (9) Anemia Code(s): D64.9 - ANEMIA, UNSPECIFIED (10) Hyponatremia Code(s): E87.1 - HYPO-OSMOLALITY AND HYPONATREMIA (11) UTI (urinary tract infection) Code(s): N39.0 - URINARY TRACT INFECTION, SITE NOT SPECIFIED Assessment/Plan (1) Ileus -resolved -GI following -on full liquid -attempt to advance tomorrow, today asks to remain on full liquid diet (2) SOB -stable -continue current management -steroid taper per pulmonary (3) Hip fracture Assessment/Plan: -continue tylenol -appreciate ortho assistance -staple removed -repeat x-rays reviewed Code(s): S72.009A - FRACTURE OF UNSP PART OF NECK OF UNSP FEMUR, INIT Qualifiers: Encounter type: initial encounter Fracture type: closed Laterality : right Qualified Code(s): S72.001A - Fracture of unspecified part of neck of right femur, initial encounter for closed fracture (4) (HFpEF) heart failure with preserved ejection fraction Assessment/Plan: -leg edema unchanged -continue oral lasix -HD MWF Code(s): I50.9 - HEART FAILURE, UNSPECIFIED (5) Bilateral leg edema Assessment/Plan: -stable Code(s): R60.0 - LOCALIZED EDEMA (6) Diabetes Assessment/Plan: -diet restarted -monitor -continue SSI Code(s): E11.9 - TYPE 2 DIABETES MELLITUS WITHOUT COMPLICATIONS (7) HTN (hypertension) Assessment/Plan: -well controlled -continue lasix Code(s): I10 - ESSENTIAL (PRIMARY) HYPERTENSION (8) Hyperkalemia Assessment/Plan: -resolved with HD Code(s): E87.5 - HYPERKALEMIA (9) End stage renal failure on dialysis Assessment/Plan: -continue HD per nephrology Code(s): N18.6 - END STAGE RENAL DISEASE Z99.2 - DEPENDENCE ON RENAL DIALYSIS (10) Obesity Code(s): E66.9 - OBESITY, UNSPECIFIED Qualifiers: Obesity severity: morbid (11) Hyponatremia -much improved with fluid restriction (12) Sepsis -appreciate ID assistance -s/p full course of ertapenem (13) Anemia -secondary to renal function -continue epo per nephrology -s/p transfusion (14) Sacral decubitus ulcer -wound care consulted
[2016-08-08] MEDS ORDERED: INSULIN (NOVOLOG) ASPART 100 UNITS/ML 10ML VIAL SQ ONE (16:45)
[2016-08-08] MEDS ORDERED: INSULIN (NOVOLOG) ASPART 100 UNITS/ML 10ML VIAL ONE (17:16)
--- NOTE | 2016-08-08 17:55 | PN ---
Progress Note (short form) - Note Progress Note: Surgery- Dr. Morris Came to see patient for sacral wound consult. Patient is in chair and requires Bradford lift to return to bed for exam. Discussed with nursing, surgery will come back later for evaluation.
--- NOTE | 2016-08-08 18:39 | CONSULT ---
Consult Consult Specialty:: Vascular/Wound care- Dr. Morris Reason for Consultation:: Sacral ulcer - History of Present Illness Chief Complaint: sacral ulcer History of Present Illness: 85 yo F admitted following fall and right femur intertrochanteric fracture s/p right intramedullary nail. Patient and her are unsure of how long she has had a wound on her sacrum or heel. Patient denies having this problem in the past. Patient knows Dr. Morris. - History Source History Provided By: Patient, Family Member - Past Medical History Cardio/Vascular: Yes: AFIB, CAD, CHF, HTN, Hyperlipdemia Pulmonary: Yes: Sleep Apnea Renal/: Yes: Renal Failure (On HD), Renal Inusuff Rheumatology: Yes: Gout Endocrine: Yes: Diabetes Mellitus - Past Surgical History Past Surgical History: Yes: Cataract Removal (bilaterally), Cholecystectomy, Hernia Repair (umbilical x2), Hysterectomy, Joint Replacement (right knee) - Alcohol/Substance Use Hx Alcohol Use: No History of Substance Use: reports: None - Smoking History Smoking history: Never smoked Have you smoked in the past 12 months: No Aproximately how many cigarettes per day: 0 - Social History Usual Living Arrangement: With Spouse ADL: Independent Occupation: former housewife, , 4 daughters History of Recent Travel: No Home Medications - Allergies Allergies/Adverse Reactions: Allergies Allergy/AdvReac Type Severity Reaction Status Date / Time codeine AdvReac Verified 07/09/16 04:57 - Home Medications Home Medications: Ambulatory Orders Atorvastatin Calcium [Lipitor] 10 mg PO HS 08/25/12 Cholecalciferol (Vitamin D3) [Vitamin D] 1,000 unit PO DAILY 08/25/12 Iron 28 mg PO Q2D 08/14/15 Loratadine [Claritin -] 10 mg PO DAILY PRN 08/14/15 Levemir Flextouch 8 units SQ HS 11/01/15 Aspirin [Ecotrin] 81 mg PO DAILY 07/09/16 Furosemide [Lasix] 80 mg PO DAILY 07/09/16 Tramadol HCl 50 mg PO HS PRN 07/09/16 Review of Systems - Review of Systems Constitutional: denies: Chills, Fever Cardiovascular: denies: Chest Pain, Shortness of Breath Respiratory: denies: Cough, SOB Gastrointestinal: denies: Nausea, Vomiting Musculoskeletal: reports: Extremity Pain (Left arm) Integumentary: reports: Wound (Sacrum, right heel) Physical Exam Vital Signs: Vital Signs Temperature 98.2 F 08/08/16 13:37 Pulse Rate 97 H 08/08/16 13:37 Respiratory Rate 18 08/08/16 08:36 Blood Pressure 111/55 08/08/16 13:37 O2 Sat by Pulse Oximetry (%) 98 08/08/16 08:32 Constitutional: Yes: No Distress, Anxious Cardiovascular: Yes: WNL Respiratory: Yes: WNL Gastrointestinal: Yes: WNL Extremities: Yes: Other (Right UE AVF) Peripheral Pulses WNL: Yes Integumentary: Yes: Other (Sacrum with several small areas of superficial skin excoriation, without drainage, stage 1 pressure ulcers. Central area, less than 1cm, slightly deeper, probed with cotton tipped swab, less than 0.5 cm deep stage 2 ulcer. Right heel with dry eschar, nonfluctuant, without drainage or odor.) Wound/Incision: Yes: Dressing Dry and Intact (Right hip) Neurological: Yes: Alert, Oriented Labs: CBC, BMP 08/08/16 06:30 08/08/16 06:30 Problem List - Problems (1) Ulcer Assessment/Plan: Apply Silvadene to wounds Daily dressing changes Repositioning/offloading Heel protectors Code(s): L98.499 - NON-PRESSURE CHRONIC ULCER OF SKIN OF SITES W UNSP SEVERITY Assessment/Plan Small stage 1 and 2 sacral ulcers, right heel wound Apply Silvadene to wounds Daily dressing changes Repositioning/offloading Heel protectors
[2016-08-08] MEDS: ATORVASTATIN CA 10 MG TABLET (FP) PO SCH (21:50)
[2016-08-09] MEDS: INSULIN DETEMIR 100 UNITS/ML MDV SQ SCH ×2 (06:22→21:25)
[2016-08-09] MEDS: INSULIN SLIDING SCALE (NOVOLOG) 1 VIAL SQ SCH ×4 (06:23→21:26)
--- NOTE | 2016-08-09 09:11 | PN ---
Progress Note (short form) - Note Progress Note: quite awake and alert ate some cereal Vital Signs Period Temp Pulse Resp BP Sys/Adams Pulse Ox Last 24 Hr 97.0 F-98.8 F 83-97 20-22 111-143/55-110 98 cor-rrr lungs clear abd soft,nt ext less edema open incision left hip with slough CBC, BMP 08/08/16 06:30 08/08/16 06:30 Current Medications Acetaminophen (Tylenol -) 650 mg PO Q4H PRN PRN Reason: FEVER OR PAIN Last Admin: 08/07/16 21:09 Dose: 650 mg Apixaban (Eliquis -) 2.5 mg PO BID [facility] Last Admin: 08/08/16 21:53 Dose: 2.5 mg Atorvastatin Calcium (Lipitor -) 10 mg PO HS [facility] Last Admin: 08/08/16 21:50 Dose: 10 mg Cholecalciferol (Vitamin D3 -) 1,000 unit PO DAILY [facility] Last Admin: 08/08/16 10:09 Dose: 1,000 unit Docusate Sodium (Colace -) 100 mg PO BID [facility] Last Admin: 08/08/16 21:50 Dose: Not Given Epoetin Abraham (Procrit -) 10,000 unit SQ ONCE ONE Stop: 08/09/16 13:24 Furosemide (Lasix -) 80 mg PO DAILY [facility] Last Admin: 08/08/16 10:10 Dose: 80 mg Insulin Aspart (Novolog Vial Sliding Scale -) 1 vial SQ ACHS [facility] PRN Reason: Protocol Last Admin: 08/09/16 06:23 Dose: Not Given Insulin Detemir (Levemir Vial) 10 units SQ BID@0700,2200 [facility] Last Admin: 08/09/16 06:22 Dose: 10 units Loratadine (Claritin -) 10 mg PO DAILY PRN PRN Reason: allergy Multivit/Ca Carb/B Cmplx/FA/Prenat (Nephro-Annie -) 1 tablet PO DAILY [facility] Last Admin: 08/08/16 10:09 Dose: 1 tablet Nystatin (Mycostatin Cream -) 1 applic TP BID [facility] Last Admin: 08/08/16 22:01 Dose: 1 applic Ondansetron HCl (Zofran Injection) 4 mg IVPB Q6H PRN PRN Reason: NAUSEA Last Admin: 07/31/16 23:13 Dose: 4 mg Polyethylene Glycol (Miralax (For Daily Use) -) 17 gm PO BID [facility] Last Admin: 08/08/16 21:49 Dose: Not Given Prednisone (Deltasone -) 30 mg PO DAILY [facility] Last Admin: 08/08/16 10:09 Dose: 30 mg Silver Sulfadiazine (Silvadene -) 1 applic TP DAILY [facility] a/p ecoli esbl bacteremia- has completed 14 days ertapenem, observe off antibiotics esrd/hd volume overload- s/p hip/humerus fracture- ortho followup, per ortho superficial wound - would suggest ortho f/u today, concern for wound infection and wound healing, needs re-eval with debridement, ?vac- not sure how deep wound is , needs ortho re-evaluation prior to any plans for discharge abdominal distention- improved, ngt out leukocytosis has been on steroids now po prednisone wound care eval for sacral ulcer noted overall prognosis poor d/w Dr Lozoya
[2016-08-09] MEDS ORDERED: COLLAGENASE CLOSTRIDIUM HIST. 30 GRAMS TUBE TP SCH ×2 (10:00)
[2016-08-09] MEDS: DOCUSATE SODIUM 100 MG CAPSULE (FP) PO SCH ×2 (11:25→21:20)
[2016-08-09] MEDS: POLYETHYLENE GLYCOL 3350 119 GM BTL PO SCH ×2 (11:26→21:20)
[2016-08-09 11:31] LABS: MCH 32.1 pg (25.7-33.7); MEAN CELL VOLUME 100.4 fl (80-96); MEAN PLT VOLUME 9.3 fl (7.5-11.1); PLATELET COUNT 265 K/MM3 (134-434); RDW 17.2 % (11.6-15.6); WHITE BLOOD COUNT 22.6 K/mm3 (4.0-10.0)
[2016-08-09 12:09] LABS: CALCIUM 7.5 mg/dL (8.5-10.1)
[2016-08-09 12:15] LABS: ALBUMIN 2.2 g/dl (3.4-5.0); BILIRUBIN,TOTAL 0.7 mg/dL (0.2-1.0); CREATININE 3.9 mg/dL (0.55-1.02); TOT PROT 5.7 g/dl (6.4-8.2)
[2016-08-09 12:20] LABS: PLATELET ESTIMATE ADEQUATE (NORMAL)
--- NOTE | 2016-08-09 12:27 | PN ---
Progress Note (short form) - Note Progress Note: Renal Follow up for ESRD on HD Pt seen and examined during dialysis BP 130/51, access with good function goal UF is 1.5L pt without any acute complaints. Vital Signs Temperature 97.5 F L 08/09/16 10:35 Pulse Rate 60 08/09/16 12:10 Respiratory Rate 18 08/09/16 12:10 Blood Pressure 118/60 08/09/16 12:10 O2 Sat by Pulse Oximetry (%) 96 08/09/16 09:00 Intake & Output 08/06/16 08/07/16 08/08/16 08/09/16 23:59 23:59 23:59 23:59 Intake Total 3592 515 3464 225 Balance 1322 468 3740 225 Weight 186 lb 9 oz 183 lb 3 oz 181 lb 9 oz 180 lb 1.6 oz Gen: NAD, awake and alert, NGT in place CVS: irregular, no M/R Lungs: Dec BS Lung bases, no rales Abd: soft NT/ND Ext: Trace to 1+ edema in LE Access: Left ARM AVF CBC, BMP 08/09/16 11:00 Current Medications Acetaminophen (Tylenol -) 650 mg PO Q4H PRN PRN Reason: FEVER OR PAIN Last Admin: 08/07/16 21:09 Dose: 650 mg Apixaban (Eliquis -) 2.5 mg PO BID [facility] Last Admin: 08/08/16 21:53 Dose: 2.5 mg Atorvastatin Calcium (Lipitor -) 10 mg PO HS [facility] Last Admin: 08/08/16 21:50 Dose: 10 mg Cholecalciferol (Vitamin D3 -) 1,000 unit PO DAILY [facility] Last Admin: 08/08/16 10:09 Dose: 1,000 unit Docusate Sodium (Colace -) 100 mg PO BID [facility] Last Admin: 08/09/16 11:25 Dose: Not Given Epoetin Abraham (Procrit -) 10,000 unit SQ ONCE ONE Stop: 08/09/16 13:24 Furosemide (Lasix -) 80 mg PO DAILY [facility] Last Admin: 08/08/16 10:10 Dose: 80 mg Insulin Aspart (Novolog Vial Sliding Scale -) 1 vial SQ ACHS [facility] PRN Reason: Protocol Last Admin: 08/09/16 06:23 Dose: Not Given Insulin Detemir (Levemir Vial) 10 units SQ BID@0700,2200 [facility] Last Admin: 08/09/16 06:22 Dose: 10 units Loratadine (Claritin -) 10 mg PO DAILY PRN PRN Reason: allergy Multivit/Ca Carb/B Cmplx/FA/Prenat (Nephro-Annie -) 1 tablet PO DAILY [facility] Last Admin: 08/08/16 10:09 Dose: 1 tablet Nystatin (Mycostatin Cream -) 1 applic TP BID [facility] Last Admin: 08/08/16 22:01 Dose: 1 applic Ondansetron HCl (Zofran Injection) 4 mg IVPB Q6H PRN PRN Reason: NAUSEA Last Admin: 07/31/16 23:13 Dose: 4 mg Polyethylene Glycol (Miralax (For Daily Use) -) 17 gm PO BID [facility] Last Admin: 08/09/16 11:26 Dose: Not Given Prednisone (Deltasone -) 30 mg PO DAILY [facility] Last Admin: 08/08/16 10:09 Dose: 30 mg Silver Sulfadiazine (Silvadene -) 1 applic TP DAILY [facility] A/P 85 year old woman with PMhx of ESRD on HD (MWF), Afib on A/C, HTN, CAD s/p stents, CHF, DM who presented s/p fall with multiple fractures. #ESRD on HD/Fluid overload Tolerating HD goal uf is 2.5L #Abd distension/Nausea and Vomiting now appears resolved #Fever/Gram Negative Bacteria Completed course of Abx #Intertrochanteric hip fx/Humerus Fracture s/p Gamma Nail Arm in immobilizer Pain control #CKD Related Anemia Hgb at goal hold ARI #SOB secondary to COPD/CHF steroid taper as per pulmonary Massimo Melissa DO
--- NOTE | 2016-08-09 12:43 | PN ---
Progress Note, Physician Chief Complaint: Ms Mcdonnell is without complaint. No cp, sob, n/v. Asking when she can be discharged. - Current Medication List Current Medications: Active Medications Acetaminophen (Tylenol -) 650 mg PO Q4H PRN PRN Reason: FEVER OR PAIN Last Admin: 08/07/16 21:09 Dose: 650 mg Apixaban (Eliquis -) 2.5 mg PO BID [facility] Last Admin: 08/08/16 21:53 Dose: 2.5 mg Atorvastatin Calcium (Lipitor -) 10 mg PO HS [facility] Last Admin: 08/08/16 21:50 Dose: 10 mg Cholecalciferol (Vitamin D3 -) 1,000 unit PO DAILY [facility] Last Admin: 08/08/16 10:09 Dose: 1,000 unit Docusate Sodium (Colace -) 100 mg PO BID [facility] Last Admin: 08/09/16 11:25 Dose: Not Given Furosemide (Lasix -) 80 mg PO DAILY [facility] Last Admin: 08/08/16 10:10 Dose: 80 mg Insulin Aspart (Novolog Vial Sliding Scale -) 1 vial SQ ACHS [facility] PRN Reason: Protocol Last Admin: 08/09/16 06:23 Dose: Not Given Insulin Detemir (Levemir Vial) 10 units SQ BID@0700,2200 [facility] Last Admin: 08/09/16 06:22 Dose: 10 units Loratadine (Claritin -) 10 mg PO DAILY PRN PRN Reason: allergy Multivit/Ca Carb/B Cmplx/FA/Prenat (Nephro-Annie -) 1 tablet PO DAILY [facility] Last Admin: 08/08/16 10:09 Dose: 1 tablet Nystatin (Mycostatin Cream -) 1 applic TP BID [facility] Last Admin: 08/08/16 22:01 Dose: 1 applic Ondansetron HCl (Zofran Injection) 4 mg IVPB Q6H PRN PRN Reason: NAUSEA Last Admin: 07/31/16 23:13 Dose: 4 mg Polyethylene Glycol (Miralax (For Daily Use) -) 17 gm PO BID [facility] Last Admin: 08/09/16 11:26 Dose: Not Given Prednisone (Deltasone -) 30 mg PO DAILY [facility] Last Admin: 08/08/16 10:09 Dose: 30 mg Silver Sulfadiazine (Silvadene -) 1 applic TP DAILY [facility] - Objective Vital Signs: Vital Signs Temperature 97.5 F L 08/09/16 10:35 Pulse Rate 60 08/09/16 12:10 Respiratory Rate 18 08/09/16 12:10 Blood Pressure 118/60 08/09/16 12:10 O2 Sat by Pulse Oximetry (%) 96 08/09/16 09:00 Constitutional: Yes: No Distress, Calm, Obese Cardiovascular: Yes: Regular Rate and Rhythm. No: Gallop, Murmur, Rub Respiratory: Yes: Regular, CTA Bilaterally. No: Rales, Rhonchi, Wheezes Gastrointestinal: Yes: Normal Bowel Sounds, Soft. No: Distention, Tenderness Extremities: Yes: WNL Edema: Yes Edema: LLE: 2+, RLE: 2+ Labs: CBC, BMP 08/09/16 11:00 08/09/16 11:00 INR, PTT INR 1.18 (0.82-1.09) H 07/10/16 07:40 Problem List - Problems (1) Hip fracture Code(s): S72.009A - FRACTURE OF UNSP PART OF NECK OF UNSP FEMUR, INIT Qualifiers: Encounter type: initial encounter Fracture type: closed Laterality : right Qualified Code(s): S72.001A - Fracture of unspecified part of neck of right femur, initial encounter for closed fracture (2) (HFpEF) heart failure with preserved ejection fraction Code(s): I50.9 - HEART FAILURE, UNSPECIFIED (3) Bilateral leg edema Code(s): R60.0 - LOCALIZED EDEMA (4) Diabetes Code(s): E11.9 - TYPE 2 DIABETES MELLITUS WITHOUT COMPLICATIONS (5) HTN (hypertension) Code(s): I10 - ESSENTIAL (PRIMARY) HYPERTENSION (6) Hyperkalemia Code(s): E87.5 - HYPERKALEMIA (7) End stage renal failure on dialysis Code(s): N18.6 - END STAGE RENAL DISEASE Z99.2 - DEPENDENCE ON RENAL DIALYSIS (8) Obesity Code(s): E66.9 - OBESITY, UNSPECIFIED Qualifiers: Obesity severity: morbid (9) Anemia Code(s): D64.9 - ANEMIA, UNSPECIFIED (10) Hyponatremia Code(s): E87.1 - HYPO-OSMOLALITY AND HYPONATREMIA (11) UTI (urinary tract infection) Code(s): N39.0 - URINARY TRACT INFECTION, SITE NOT SPECIFIED Assessment/Plan (1) Ileus -resolved -GI following -tolerating regular diet (2) SOB -stable -continue current management -steroid taper per pulmonary (3) Hip fracture Assessment/Plan: -continue tylenol -appreciate ortho assistance -staple removed -repeat x-rays reviewed -ID concerned about wound becoming infected -ortho consulted to evaluate -monitor WBC as is increasing Code(s): S72.009A - FRACTURE OF UNSP PART OF NECK OF UNSP FEMUR, INIT Qualifiers: Encounter type: initial encounter Fracture type: closed Laterality : right Qualified Code(s): S72.001A - Fracture of unspecified part of neck of right femur, initial encounter for closed fracture (4) (HFpEF) heart failure with preserved ejection fraction Assessment/Plan: -leg edema unchanged -continue oral lasix -HD MWF Code(s): I50.9 - HEART FAILURE, UNSPECIFIED (5) Bilateral leg edema Assessment/Plan: -stable Code(s): R60.0 - LOCALIZED EDEMA (6) Diabetes Assessment/Plan: -diet restarted -monitor -continue SSI Code(s): E11.9 - TYPE 2 DIABETES MELLITUS WITHOUT COMPLICATIONS (7) HTN (hypertension) Assessment/Plan: -well controlled -continue lasix Code(s): I10 - ESSENTIAL (PRIMARY) HYPERTENSION (8) Hyperkalemia Assessment/Plan: -resolved with HD Code(s): E87.5 - HYPERKALEMIA (9) End stage renal failure on dialysis Assessment/Plan: -continue HD per nephrology Code(s): N18.6 - END STAGE RENAL DISEASE Z99.2 - DEPENDENCE ON RENAL DIALYSIS (10) Obesity Code(s): E66.9 - OBESITY, UNSPECIFIED Qualifiers: Obesity severity: morbid (11) Hyponatremia -much improved with fluid restriction (12) Sepsis -appreciate ID assistance -s/p full course of ertapenem (13) Anemia -secondary to renal function -continue epo per nephrology -s/p transfusion (14) Sacral decubitus ulcer -wound care consulted and appreciate assistance -silvadene to wounds
[2016-08-09 12:44] LABS: MAGNESIUM 1.5 mg/dL (1.8-2.4); PHOSPHOROUS 3.1 mg/dL (2.5-4.9)
[2016-08-09] MEDS ORDERED: EPOETIN ALFA 10,000 UNIT/1 ML VIAL SQ ONE (13:23)
--- NOTE | 2016-08-09 13:48 | PN ---
Progress Note (short form) - Note Progress Note: FULL NOTE DICTATED PLAN: WET TO DRY DRESSING CHANGES RIGHT HIP
[2016-08-09] MEDS ORDERED: PT OWN MED DRAWER 7, Y5N ONE (14:43)
[2016-08-09] MEDS: VITAMIN B COMP W-C 1 EA TABLET PO SCH (14:45)
[2016-08-09] MEDS: predniSONE 10 MG TABLET (UD) PO SCH (14:45)
[2016-08-09] MEDS: FUROSEMIDE 40 MG TABLET (FP) PO SCH (14:45)
[2016-08-09] MEDS: APIXABAN 2.5 MG TABLET PO SCH ×2 (14:45→21:25)
[2016-08-09] MEDS: CHOLECALCIFEROL (VITAMIN D3) 1,000 UNIT TABLET (FP) PO SCH (14:45)
[2016-08-09] MEDS: NYSTATIN 100,000 UNIT/GM TOPICAL CREAM 15 GM TUBE TP SCH ×2 (14:46→21:21)
[2016-08-09] MEDS: SILVER SULFADIAZINE 1% TOP CREAM 50 GM JAR TP SCH (14:46)
[2016-08-09] MEDS ORDERED: INSULIN (NOVOLOG) ASPART 100 UNITS/ML 10ML VIAL ONE ×2 (16:07→21:24)
[2016-08-09] MEDS: ATORVASTATIN CA 10 MG TABLET (FP) PO SCH (21:25)
[2016-08-09] MEDS ORDERED: diazePAM 5 MG TABLET PO ONE (23:00)
[2016-08-10] MEDS: INSULIN DETEMIR 100 UNITS/ML MDV SQ SCH ×2 (06:21→21:24)
[2016-08-10] MEDS ORDERED: INSULIN (NOVOLOG) ASPART 100 UNITS/ML 10ML VIAL ONE ×3 (06:22→16:45)
[2016-08-10] MEDS: INSULIN SLIDING SCALE (NOVOLOG) 1 VIAL SQ SCH ×4 (06:22→21:27)
[2016-08-10] MEDS ORDERED: PT OWN MED DRAWER 7, Y5N ONE ×2 (09:13→21:01)
[2016-08-10] MEDS: DOCUSATE SODIUM 100 MG CAPSULE (FP) PO SCH ×2 (09:20→21:25)
[2016-08-10] MEDS: predniSONE 10 MG TABLET (UD) PO SCH (09:20)
[2016-08-10] MEDS: VITAMIN B COMP W-C 1 EA TABLET PO SCH (09:20)
[2016-08-10] MEDS: FUROSEMIDE 40 MG TABLET (FP) PO SCH (09:20)
[2016-08-10] MEDS: CHOLECALCIFEROL (VITAMIN D3) 1,000 UNIT TABLET (FP) PO SCH (09:20)
[2016-08-10] MEDS: POLYETHYLENE GLYCOL 3350 119 GM BTL PO SCH ×2 (09:20→21:25)
[2016-08-10] MEDS: APIXABAN 2.5 MG TABLET PO SCH ×2 (09:20→21:24)
[2016-08-10 09:24] LABS: BASOPHIL 0.1 % (0-2.0); EOSINOPHIL 0.1 % (0-4.5); MCH 32.4 pg (25.7-33.7); MCHC 31.8 g/dl (32.0-36.0); MEAN PLT VOLUME 9.4 fl (7.5-11.1); NEUTROPHILS 90.4 % (42.8-82.8); PLATELET COUNT 245 K/MM3 (134-434); RDW 17.5 % (11.6-15.6); WHITE BLOOD COUNT 18.5 K/mm3 (4.0-10.0)
[2016-08-10] MEDS: NYSTATIN 100,000 UNIT/GM TOPICAL CREAM 15 GM TUBE TP SCH ×2 (09:27→21:25)
[2016-08-10] MEDS: SILVER SULFADIAZINE 1% TOP CREAM 50 GM JAR TP SCH (09:28)
[2016-08-10 09:46] LABS: CALCIUM 8.1 mg/dL (8.5-10.1)
[2016-08-10 09:50] LABS: CREATININE 2.6 mg/dL (0.55-1.02); MAGNESIUM 1.7 mg/dL (1.8-2.4); PHOSPHOROUS 2.9 mg/dL (2.5-4.9)
[2016-08-10] MEDS ORDERED: MAGNESIUM CL 64 MG TABLET.SA PO ONE (11:00)
--- NOTE | 2016-08-10 11:46 | PN ---
Progress Note (short form) - Note Progress Note: Renal Follow up for ESRD on HD Pt seen and examined at the bedside no acute complaints wants to be discharged no sob or chest pain s/p dialysis yesterday Vital Signs Temperature 98.2 F 08/10/16 09:00 Pulse Rate 100 H 08/10/16 09:00 Respiratory Rate 20 08/10/16 09:00 Blood Pressure 117/60 08/10/16 09:00 O2 Sat by Pulse Oximetry (%) 97 08/09/16 21:00 Intake & Output 08/07/16 08/08/16 08/09/16 08/10/16 23:59 23:59 23:59 23:59 Intake Total 750 1060 225 575 Balance 750 1060 225 575 Weight 183 lb 3 oz 181 lb 9 oz 180 lb 1.6 oz 178 lb 9 oz Gen: NAD, awake and alert, NGT in place CVS: irregular, no M/R Lungs: Dec BS Lung bases, no rales Abd: soft NT/ND Ext: Trace to 1+ edema in LE Access: Left ARM AVF CBC, BMP 08/10/16 07:50 08/10/16 07:50 Current Medications Acetaminophen (Tylenol -) 650 mg PO Q4H PRN PRN Reason: FEVER OR PAIN Last Admin: 08/07/16 21:09 Dose: 650 mg Apixaban (Eliquis -) 2.5 mg PO BID [facility] Last Admin: 08/10/16 09:20 Dose: 2.5 mg Atorvastatin Calcium (Lipitor -) 10 mg PO HS [facility] Last Admin: 08/09/16 21:25 Dose: 10 mg Cholecalciferol (Vitamin D3 -) 1,000 unit PO DAILY [facility] Last Admin: 08/10/16 09:20 Dose: 1,000 unit Docusate Sodium (Colace -) 100 mg PO BID [facility] Last Admin: 08/10/16 09:20 Dose: Not Given Furosemide (Lasix -) 80 mg PO DAILY [facility] Last Admin: 08/10/16 09:20 Dose: 80 mg Insulin Aspart (Novolog Vial Sliding Scale -) 1 vial SQ ACHS [facility] PRN Reason: Protocol Last Admin: 08/10/16 11:43 Dose: 5 units Insulin Detemir (Levemir Vial) 10 units SQ BID@0700,2200 [facility] Last Admin: 08/10/16 06:21 Dose: 10 units Loratadine (Claritin -) 10 mg PO DAILY PRN PRN Reason: allergy Multivit/Ca Carb/B Cmplx/FA/Prenat (Nephro-Annie -) 1 tablet PO DAILY [facility] Last Admin: 08/10/16 09:20 Dose: 1 tablet Nystatin (Mycostatin Cream -) 1 applic TP BID [facility] Last Admin: 08/10/16 09:27 Dose: 1 applic Ondansetron HCl (Zofran Injection) 4 mg IVPB Q6H PRN PRN Reason: NAUSEA Last Admin: 07/31/16 23:13 Dose: 4 mg Polyethylene Glycol (Miralax (For Daily Use) -) 17 gm PO BID [facility] Last Admin: 08/10/16 09:20 Dose: Not Given Prednisone (Deltasone -) 30 mg PO DAILY [facility] Last Admin: 08/10/16 09:20 Dose: 30 mg Silver Sulfadiazine (Silvadene -) 1 applic TP DAILY [facility] Last Admin: 08/10/16 09:28 Dose: 1 applic A/P 85 year old woman with PMhx of ESRD on HD (MWF), Afib on A/C, HTN, CAD s/p stents, CHF, DM who presented s/p fall with multiple fractures. #ESRD on HD/Fluid overload no acute indication for dialysis or UF today #Abd distension/Nausea and Vomiting tolerating diet #Fever/Gram Negative Bacteria Completed course of Abx #Intertrochanteric hip fx/Humerus Fracture s/p Gamma Nail Pain control #CKD Related Anemia Hgb at goal hold ARI #SOB secondary to COPD/CHF steroid taper as per pulmonary Massimo Melissa DO
--- NOTE | 2016-08-10 13:05 | PN ---
Progress Note (short form) - Note Progress Note: No fever Feels better O/E Heart irregular Lungs few b/l rales and rhonchi+ Abd soft Laboratory Results - last 24 hr 08/09/16 08/09/16 08/09/16 11:00 11:00 15:57 WBC RBC Hgb Hct MCV MCHC RDW Plt Count MPV Neutrophils % Lymphocytes % Monocytes % Eosinophils % Basophils % Sodium Cancelled Potassium Cancelled Chloride Cancelled Carbon Dioxide Cancelled Anion Gap Cancelled BUN Cancelled Creatinine Cancelled POC Glucometer 168 Random Glucose Cancelled Calcium Cancelled Phosphorus Cancelled Magnesium Cancelled Hepatitis C Antibody 0.3 08/09/16 08/10/16 08/10/16 21:19 05:31 07:50 WBC 18.5 H RBC 3.87 Hgb 12.6 Hct 39.5 MCV 102.0 H MCHC 31.8 L RDW 17.5 H Plt Count 245 MPV 9.4 Neutrophils % 90.4 H Lymphocytes % 5.9 L D Monocytes % 3.5 L Eosinophils % 0.1 D Basophils % 0.1 Sodium Potassium Chloride Carbon Dioxide Anion Gap BUN Creatinine POC Glucometer 183 153 Random Glucose Calcium Phosphorus Magnesium Hepatitis C Antibody 08/10/16 08/10/16 07:50 11:32 WBC RBC Hgb Hct MCV MCHC RDW Plt Count MPV Neutrophils % Lymphocytes % Monocytes % Eosinophils % Basophils % Sodium 139 Potassium 4.1 Chloride 97 L Carbon Dioxide 33 H Anion Gap 9 BUN 29 H D Creatinine 2.6 H D POC Glucometer 297 Random Glucose 103 D Calcium 8.1 L Phosphorus 2.9 Magnesium 1.7 L Hepatitis C Antibody Current Medications Acetaminophen (Tylenol -) 650 mg PO Q4H PRN PRN Reason: FEVER OR PAIN Last Admin: 08/07/16 21:09 Dose: 650 mg Apixaban (Eliquis -) 2.5 mg PO BID [facility] Last Admin: 08/10/16 09:20 Dose: 2.5 mg Atorvastatin Calcium (Lipitor -) 10 mg PO HS [facility] Last Admin: 08/09/16 21:25 Dose: 10 mg Cholecalciferol (Vitamin D3 -) 1,000 unit PO DAILY [facility] Last Admin: 08/10/16 09:20 Dose: 1,000 unit Docusate Sodium (Colace -) 100 mg PO BID [facility] Last Admin: 08/10/16 09:20 Dose: Not Given Furosemide (Lasix -) 80 mg PO DAILY [facility] Last Admin: 08/10/16 09:20 Dose: 80 mg Insulin Aspart (Novolog Vial Sliding Scale -) 1 vial SQ ACHS [facility] PRN Reason: Protocol Last Admin: 08/10/16 11:43 Dose: 5 units Insulin Detemir (Levemir Vial) 10 units SQ BID@0700,2200 [facility] Last Admin: 08/10/16 06:21 Dose: 10 units Loratadine (Claritin -) 10 mg PO DAILY [facility]N PRN Reason: allergy Multivit/Ca Carb/B Cmplx/FA/Prenat (Nephro-Annie -) 1 tablet PO DAILY [facility] Last Admin: 08/10/16 09:20 Dose: 1 tablet Nystatin (Mycostatin Cream -) 1 applic TP BID [facility] Last Admin: 08/10/16 09:27 Dose: 1 applic Ondansetron HCl (Zofran Injection) 4 mg IVPB Q6H PRN PRN Reason: NAUSEA Last Admin: 07/31/16 23:13 Dose: 4 mg Polyethylene Glycol (Miralax (For Daily Use) -) 17 gm PO BID [facility] Last Admin: 08/10/16 09:20 Dose: Not Given Prednisone (Deltasone -) 30 mg PO DAILY [facility] Last Admin: 08/10/16 09:20 Dose: 30 mg Silver Sulfadiazine (Silvadene -) 1 applic TP DAILY [facility] Last Admin: 08/10/16 09:28 Dose: 1 applic Vital Signs Period Temp Pulse Resp BP Sys/Adams Pulse Ox Last 24 Hr 97.3 F-98.2 F 77-100 18-22 99-130/46-62 97 Assessment/Plan (1) Ileus resolved (2) SOB -resolved (3) Hip fracture Assessment/Plan: -awaiting SNF placement Code(s): S72.009A - FRACTURE OF UNSP PART OF NECK OF UNSP FEMUR, INIT Qualifiers: Encounter type: initial encounter Fracture type: closed Laterality : right Qualified Code(s): S72.001A - Fracture of unspecified part of neck of right femur, initial encounter for closed fracture (4) (HFpEF) heart failure with preserved ejection fraction Assessment/Plan: -cont present care and meds Code(s): I50.9 - HEART FAILURE, UNSPECIFIED (5) Bilateral leg edema Assessment/Plan: -stable Code(s): R60.0 - LOCALIZED EDEMA (6) Diabetes Assessment/Plan: cont present care Code(s): E11.9 - TYPE 2 DIABETES MELLITUS WITHOUT COMPLICATIONS (7) HTN (hypertension) Assessment/Plan: -well controlled -continue lasix Code(s): I10 - ESSENTIAL (PRIMARY) HYPERTENSION (8) Hyperkalemia Assessment/Plan: -resolved with HD Code(s): E87.5 - HYPERKALEMIA (9) End stage renal failure on dialysis Assessment/Plan: -continue HD per nephrology Code(s): N18.6 - END STAGE RENAL DISEASE Z99.2 - DEPENDENCE ON RENAL DIALYSIS (10) Obesity Code(s): E66.9 - OBESITY, UNSPECIFIED Qualifiers: Obesity severity: morbid (11) Hyponatremia -much improved with fluid restriction (12) Sepsis -appreciate ID assistance -s/p full course of ertapenem repeat cultre no growth (13) Anemia -secondary to renal function -continue epo per nephrology -s/p transfusion (14) Sacral decubitus ulcer cont present care
[2016-08-10] MEDS: ATORVASTATIN CA 10 MG TABLET (FP) PO SCH (21:23)
--- NOTE | 2016-08-10 21:32 | PN ---
DATE OF VISIT: DATE OF DICTATION: 08/09/2016 FOLLOWUP PROGRESS NOTE Right hip wound continues to granulate and fibrinous material at its base. Some of the Vicryl stitches are apparent and were debrided, wet to dry reapplied. Patient will need continuous wet to dry treatment and changes daily to ensure healing of this wound. I will follow the wound up progressively to ensure that it heals. X-rays of the shoulder and the hip were reviewed, and the x-rays of the shoulder show a fracture that appears to be healed, therefore we had discharged her shoulder immobilizer 4 weeks seems appropriate, and patient will be left with to begin range of motion activities of the shoulder, and nothing further needs to be done. X-rays of her hip were performed which show that the gamma nail is in place. It appears that the screw in the femoral head is somewhat superior in nature, possibly beginning to cut out, but I do not believe at this time it is penetrating the head, so we will leave it alone as well and allow the fracture to heal. I will need subsequent x-rays to confirm placement and ensure that the fracture does heal further at a later date. Currently the most important thing is dealing with the wound, which we need to continue vigilant wet to dry dressing changes on a daily basis. JOYCE BOOTHE M.D. [id number]
[2016-08-11] MEDS: INSULIN SLIDING SCALE (NOVOLOG) 1 VIAL SQ SCH ×4 (06:34→21:07)
[2016-08-11] MEDS: INSULIN DETEMIR 100 UNITS/ML MDV SQ SCH ×2 (07:16→21:06)
[2016-08-11] MEDS: ACETAMINOPHEN 325 MG TABLET (FP) PO PRN (08:27)
--- NOTE | 2016-08-11 08:53 | PN ---
Progress Note, Physician Chief Complaint: ID Congested couphing NO fevers Report of 2 bottle strep sp from 1 of 2 sets - Current Medication List Current Medications: Active Medications Acetaminophen (Tylenol -) 650 mg PO Q4H PRN PRN Reason: FEVER OR PAIN Last Admin: 08/11/16 08:27 Dose: 650 mg Apixaban (Eliquis -) 2.5 mg PO BID [facility] Last Admin: 08/10/16 21:24 Dose: 2.5 mg Atorvastatin Calcium (Lipitor -) 10 mg PO HS [facility] Last Admin: 08/10/16 21:23 Dose: 10 mg Cholecalciferol (Vitamin D3 -) 1,000 unit PO DAILY [facility] Last Admin: 08/10/16 09:20 Dose: 1,000 unit Docusate Sodium (Colace -) 100 mg PO BID [facility] Last Admin: 08/10/16 21:25 Dose: Not Given Furosemide (Lasix -) 80 mg PO DAILY [facility] Last Admin: 08/10/16 09:20 Dose: 80 mg Insulin Aspart (Novolog Vial Sliding Scale -) 1 vial SQ ACHS [facility] PRN Reason: Protocol Last Admin: 08/11/16 06:34 Dose: Not Given Insulin Detemir (Levemir Vial) 10 units SQ BID@0700,2200 [facility] Last Admin: 08/11/16 07:16 Dose: 10 units Loratadine (Claritin -) 10 mg PO DAILY [facility]N PRN Reason: allergy Multivit/Ca Carb/B Cmplx/FA/Prenat (Nephro-Annie -) 1 tablet PO DAILY [facility] Last Admin: 08/10/16 09:20 Dose: 1 tablet Nystatin (Mycostatin Cream -) 1 applic TP BID [facility] Last Admin: 08/10/16 21:25 Dose: 1 applic Ondansetron HCl (Zofran Injection) 4 mg IVPB Q6H PRN PRN Reason: NAUSEA Last Admin: 07/31/16 23:13 Dose: 4 mg Polyethylene Glycol (Miralax (For Daily Use) -) 17 gm PO BID [facility] Last Admin: 08/10/16 21:25 Dose: Not Given Prednisone (Deltasone -) 30 mg PO DAILY [facility] Last Admin: 08/10/16 09:20 Dose: 30 mg Silver Sulfadiazine (Silvadene -) 1 applic TP DAILY [facility] Last Admin: 08/10/16 09:28 Dose: 1 applic - Objective Vital Signs: Vital Signs Temperature 98.1 F 08/11/16 06:00 Pulse Rate 83 08/11/16 06:00 Respiratory Rate 24 08/11/16 06:00 Blood Pressure 127/60 08/11/16 06:00 O2 Sat by Pulse Oximetry (%) 96 08/10/16 21:00 Constitutional: Yes: Mild Distress Neck: Yes: WNL, Supple Cardiovascular: Yes: S1, S2 Respiratory: Yes: WNL, Regular, CTA Bilaterally. No: Rhonchi Gastrointestinal: Yes: WNL, Normal Bowel Sounds, Soft. No: Tenderness, Rebound , Other Extremities: Yes: Other (HIp wound with fouls smelling purulent drainage copious dressing saturated) Labs: CBC, BMP 08/10/16 07:50 08/10/16 07:50 INR, PTT INR 1.18 (0.82-1.09) H 07/10/16 07:40 Assessment/Plan Laboratory Tests 08/10/16 08/10/16 07:50 07:50 WBC 18.5 H Hgb 12.6 Hct 39.5 MCV 102.0 H Plt Count 245 BUN 29 H D Creatinine 2.6 H D Microbiology Assessment ESRD Right hip wound with copious drainage ? infected nail hardware nonhealed fracture Positive blood culture ? significance Plan Discussed with Dr Allen regarding need for OR debridement with deep cultures as wound copious drainage with persistant leukocytosis in this elderly immunosurpressed patient. Will treat the blood culture with Vancomycin 1.25 grs now pending c/s Concern is hardware infection involving the elisa Resendez MD
[2016-08-11] MEDS ORDERED: PT OWN MED DRAWER 7, Y5N ONE ×2 (09:59→21:05)
[2016-08-11] MEDS ORDERED: VANCOMYCIN 1,250 MG in DEXTROSE 5%-WATER - 250 ML IVPB ONE (10:00)
[2016-08-11] MEDS: SILVER SULFADIAZINE 1% TOP CREAM 50 GM JAR TP SCH (10:07)
[2016-08-11] MEDS: NYSTATIN 100,000 UNIT/GM TOPICAL CREAM 15 GM TUBE TP SCH ×2 (10:07→21:12)
[2016-08-11] MEDS: VITAMIN B COMP W-C 1 EA TABLET PO SCH (10:08)
[2016-08-11] MEDS: APIXABAN 2.5 MG TABLET PO SCH ×2 (10:08→21:10)
[2016-08-11] MEDS: FUROSEMIDE 40 MG TABLET (FP) PO SCH (10:08)
[2016-08-11] MEDS: predniSONE 10 MG TABLET (UD) PO SCH (10:08)
[2016-08-11] MEDS: CHOLECALCIFEROL (VITAMIN D3) 1,000 UNIT TABLET (FP) PO SCH (10:08)
[2016-08-11] MEDS: DOCUSATE SODIUM 100 MG CAPSULE (FP) PO SCH ×2 (10:09→21:10)
[2016-08-11] MEDS: POLYETHYLENE GLYCOL 3350 119 GM BTL PO SCH ×2 (10:09→21:10)
--- NOTE | 2016-08-11 12:14 | PN ---
Progress Note (short form) - Note Progress Note: Sleeping comfortable No fever O/E Heart regular Lungs clear Abd soft Current Medications Acetaminophen (Tylenol -) 650 mg PO Q4H PRN PRN Reason: FEVER OR PAIN Last Admin: 08/11/16 08:27 Dose: 650 mg Apixaban (Eliquis -) 2.5 mg PO BID [facility] Last Admin: 08/11/16 10:08 Dose: 2.5 mg Atorvastatin Calcium (Lipitor -) 10 mg PO HS [facility] Last Admin: 08/10/16 21:23 Dose: 10 mg Cholecalciferol (Vitamin D3 -) 1,000 unit PO DAILY [facility] Last Admin: 08/11/16 10:08 Dose: 1,000 unit Docusate Sodium (Colace -) 100 mg PO BID [facility] Last Admin: 08/11/16 10:09 Dose: Not Given Furosemide (Lasix -) 80 mg PO DAILY [facility] Last Admin: 08/11/16 10:08 Dose: 80 mg Insulin Aspart (Novolog Vial Sliding Scale -) 1 vial SQ ACHS [facility] PRN Reason: Protocol Last Admin: 08/11/16 11:34 Dose: 3 units Insulin Detemir (Levemir Vial) 10 units SQ BID@0700,2200 [facility] Last Admin: 08/11/16 07:16 Dose: 10 units Loratadine (Claritin -) 10 mg PO DAILY PRN PRN Reason: allergy Multivit/Ca Carb/B Cmplx/FA/Prenat (Nephro-Annie -) 1 tablet PO DAILY [facility] Last Admin: 08/11/16 10:08 Dose: 1 tablet Nystatin (Mycostatin Cream -) 1 applic TP BID [facility] Last Admin: 08/11/16 10:07 Dose: 1 applic Ondansetron HCl (Zofran Injection) 4 mg IVPB Q6H PRN PRN Reason: NAUSEA Last Admin: 07/31/16 23:13 Dose: 4 mg Polyethylene Glycol (Miralax (For Daily Use) -) 17 gm PO BID [facility] Last Admin: 08/11/16 10:09 Dose: Not Given Prednisone (Deltasone -) 30 mg PO DAILY [facility] Last Admin: 08/11/16 10:08 Dose: 30 mg Silver Sulfadiazine (Silvadene -) 1 applic TP DAILY [facility] Last Admin: 08/11/16 10:07 Dose: 1 applic Vital Signs Period Temp Pulse Resp BP Sys/Adams Pulse Ox Last 24 Hr 97.0 F-98.4 F 83-100 20-24 116-127/50-60 96-97 Laboratory Results - last 24 hr 08/10/16 08/10/16 08/11/16 16:55 21:22 06:34 POC Glucometer 202 250 108 C-Reactive Protein 08/11/16 08/11/16 10:15 11:27 POC Glucometer 212 C-Reactive Protein 2.3 H BC positive for possible Staph Assessment/Plan (1) Ileus resolved (2) SOB -resolved (3) Hip fracture Assessment/Plan: -awaiting SNF placement Code(s): S72.009A - FRACTURE OF UNSP PART OF NECK OF UNSP FEMUR, INIT Qualifiers: Encounter type: initial encounter Fracture type: closed Laterality : right Qualified Code(s): S72.001A - Fracture of unspecified part of neck of right femur, initial encounter for closed fracture (4) (HFpEF) heart failure with preserved ejection fraction Assessment/Plan: -cont present care and meds Code(s): I50.9 - HEART FAILURE, UNSPECIFIED (5) Bilateral leg edema Assessment/Plan: -stable Code(s): R60.0 - LOCALIZED EDEMA (6) Diabetes Assessment/Plan: cont present care Code(s): E11.9 - TYPE 2 DIABETES MELLITUS WITHOUT COMPLICATIONS (7) HTN (hypertension) Assessment/Plan: -well controlled -continue lasix Code(s): I10 - ESSENTIAL (PRIMARY) HYPERTENSION (8) Hyperkalemia Assessment/Plan: -resolved with HD Code(s): E87.5 - HYPERKALEMIA (9) End stage renal failure on dialysis Assessment/Plan: -continue HD per nephrology Code(s): N18.6 - END STAGE RENAL DISEASE Z99.2 - DEPENDENCE ON RENAL DIALYSIS (10) Obesity Code(s): E66.9 - OBESITY, UNSPECIFIED Qualifiers: Obesity severity: morbid (11) Hyponatremia -much improved with fluid restriction (12) Sepsis -ID noted and agree with deep tissue culture but given patient's age and comorbidies such intervention has to be carefully weighed Will discuss with patient family and due diligence coordinator (13) Anemia -secondary to renal function -continue epo per nephrology -s/p transfusion
--- NOTE | 2016-08-11 15:45 | PN ---
Progress Note (short form) - Note Progress Note: CC: s/p hip fracture s: no cp palps dizzy sob. sitting in chair. Mild discomfort at surgical site. + cough. no f/c/s o: Current Medications Acetaminophen (Tylenol -) 650 mg PO Q4H PRN PRN Reason: FEVER OR PAIN Last Admin: 08/11/16 08:27 Dose: 650 mg Apixaban (Eliquis -) 2.5 mg PO BID [facility] Last Admin: 08/11/16 10:08 Dose: 2.5 mg Atorvastatin Calcium (Lipitor -) 10 mg PO HS [facility] Last Admin: 08/10/16 21:23 Dose: 10 mg Cholecalciferol (Vitamin D3 -) 1,000 unit PO DAILY [facility] Last Admin: 08/11/16 10:08 Dose: 1,000 unit Docusate Sodium (Colace -) 100 mg PO BID [facility] Last Admin: 08/11/16 10:09 Dose: Not Given Furosemide (Lasix -) 80 mg PO DAILY [facility] Last Admin: 08/11/16 10:08 Dose: 80 mg Insulin Aspart (Novolog Vial Sliding Scale -) 1 vial SQ ACHS [facility] PRN Reason: Protocol Last Admin: 08/11/16 11:34 Dose: 3 units Insulin Detemir (Levemir Vial) 10 units SQ BID@0700,2200 [facility] Last Admin: 08/11/16 07:16 Dose: 10 units Loratadine (Claritin -) 10 mg PO DAILY PRN PRN Reason: allergy Multivit/Ca Carb/B Cmplx/FA/Prenat (Nephro-Annie -) 1 tablet PO DAILY [facility] Last Admin: 08/11/16 10:08 Dose: 1 tablet Nystatin (Mycostatin Cream -) 1 applic TP BID [facility] Last Admin: 08/11/16 10:07 Dose: 1 applic Ondansetron HCl (Zofran Injection) 4 mg IVPB Q6H PRN PRN Reason: NAUSEA Last Admin: 07/31/16 23:13 Dose: 4 mg Polyethylene Glycol (Miralax (For Daily Use) -) 17 gm PO BID [facility] Last Admin: 08/11/16 10:09 Dose: Not Given Prednisone (Deltasone -) 30 mg PO DAILY [facility] Last Admin: 08/11/16 10:08 Dose: 30 mg Silver Sulfadiazine (Silvadene -) 1 applic TP DAILY [facility] Last Admin: 08/11/16 10:07 Dose: 1 applic Vital Signs - 24 hr 08/10/16 08/10/16 08/11/16 20:08 21:00 06:00 Temperature 98.4 F 98.1 F Pulse Rate 100 H 83 Respiratory 22 22 24 Rate Blood Pressure 116/53 127/60 O2 Sat by Pulse 96 Oximetry (%) 08/11/16 08/11/16 08/11/16 09:00 10:00 13:57 Temperature 97.0 F L 97.8 F Pulse Rate 88 95 H Respiratory 20 Rate Blood Pressure 117/50 130/58 O2 Sat by Pulse 97 Oximetry (%) Intake & Output 08/09/16 08/10/16 08/11/16 08/12/16 07:59 07:59 07:59 07:59 Intake Total 4320 119 9492 950 Balance 2083 953 3525 950 Weight 180 lb 1.6 oz 178 lb 9 oz 181 lb 6.4 oz NAD. calm JVD difficult to assess due to neck habitus, but does not appear elevated irregular nl S1 S2. No S3, S4 or mrg scattered exp wheeze,nl eff + BS, soft, obese, ND, NT Venous stasis changes with trace dependent LE edema, significantly improved No jaundice, no diaphoresis. aaox3 no CBC, BMP today Microbiology 08/10/16 08:40 Blood - Peripheral Venous Blood Culture - Preliminary Pending Organism Laboratory Tests 08/11/16 10:15 C-Reactive Protein 2.3 H echo 08/2015: nl lv/rv. mild lae. valves wnl. no rvsp. A/p: 85 yo with CAD s/p AZUL to RCA '14, Afib on eliquis, dCHF, HTN, HL, IDDM, GEORGE declines CPAP and CKD on HD who presents s/p fall c/b hip fracture. CAD s/p AZUL to RCA in 03/2014 - on statin. not on ASA b/c of hi risk gib and on AC. - remains stable, no anginal symptoms, nl lvef Afib - off AV alexandr blockade due to prior bradycardia (AT/AFL with slow conduction). - rate here is overall controlled - AC with eliquis (details of decision in prior notes). Held for a few days for NGT placement and in setting of ileus/NPO, now resumed. If concern for surgical site infection and repeat surgery --> will need to hold - defer to surg /id/pmd. chronic HFPEF, chronic venous insuff: - continued volume mgm't with HD per renal. Signficant improvement in overall edema. HTN - stable off meds here. Hypotension has resolved. ESRD on HD/hyperkalemia/hyponatremia - volume mgm't with HD and po lasix per renal. GEORGE on CPAP - stable sepsis, uti, bacteremia - mgm't per pmd, id. - today 08/11 appears tachypneic, diminished air movement diffusely and crackles. Patient declines repeat cxr. Reevaluate after HD. s/p right IM gamma nail, right distal humerus fx - mgm't per surgery, pmd
[2016-08-11] MEDS ORDERED: INSULIN (NOVOLOG) ASPART 100 UNITS/ML 10ML VIAL ONE ×2 (16:33→21:07)
[2016-08-11] MEDS: ATORVASTATIN CA 10 MG TABLET (FP) PO SCH (21:09)
[2016-08-12] MEDS: INSULIN DETEMIR 100 UNITS/ML MDV SQ SCH ×2 (06:23→21:14)
[2016-08-12] MEDS: INSULIN SLIDING SCALE (NOVOLOG) 1 VIAL SQ SCH ×4 (06:30→21:14)
[2016-08-12 08:50] LABS: MCH 32.6 pg (25.7-33.7); MCHC 32.3 g/dl (32.0-36.0); MEAN CELL VOLUME 100.9 fl (80-96); MEAN PLT VOLUME 9.6 fl (7.5-11.1); PLATELET COUNT 252 K/MM3 (134-434); RDW 17.4 % (11.6-15.6); WHITE BLOOD COUNT 21.8 K/mm3 (4.0-10.0)
[2016-08-12 08:51] LABS: ALBUMIN 2.4 g/dl (3.4-5.0); BILIRUBIN,TOTAL 0.6 mg/dL (0.2-1.0); CALCIUM 7.7 mg/dL (8.5-10.1); CREATININE 4.4 mg/dL (0.55-1.02); PHOSPHOROUS 3.9 mg/dL (2.5-4.9); TOT PROT 5.8 g/dl (6.4-8.2)
[2016-08-12 09:47] LABS: PLATELET ESTIMATE ADEQUATE (NORMAL)
--- NOTE | 2016-08-12 10:02 | PN ---
Progress Note (short form) - Note Progress Note: Ortho Pt seen and examined s/p right IM gamma nail with non-healing proximal wound + open wound with drainage, calf soft, nt nvi a/p OR tomorrow afternoon for I&D and VAC dressing NPO after midnight d/w DR. Allen
[2016-08-12] MEDS: POLYETHYLENE GLYCOL 3350 119 GM BTL PO SCH ×2 (10:12→21:14)
[2016-08-12] MEDS: predniSONE 10 MG TABLET (UD) PO SCH (10:13)
[2016-08-12] MEDS: APIXABAN 2.5 MG TABLET PO SCH (10:13)
[2016-08-12] MEDS: VITAMIN B COMP W-C 1 EA TABLET PO SCH (10:16)
[2016-08-12] MEDS: CHOLECALCIFEROL (VITAMIN D3) 1,000 UNIT TABLET (FP) PO SCH (10:16)
[2016-08-12] MEDS: FUROSEMIDE 40 MG TABLET (FP) PO SCH (10:16)
[2016-08-12] MEDS: NYSTATIN 100,000 UNIT/GM TOPICAL CREAM 15 GM TUBE TP SCH ×2 (10:17→21:13)
[2016-08-12] MEDS: SILVER SULFADIAZINE 1% TOP CREAM 50 GM JAR TP SCH (10:17)
[2016-08-12] MEDS: DOCUSATE SODIUM 100 MG CAPSULE (FP) PO SCH ×2 (10:41→21:14)
--- NOTE | 2016-08-12 12:56 | PN ---
Progress Note, Physician Chief Complaint: sob, chf History of Present Illness: she does not feel sob at all; tolerating po food now no cp, palpit - Current Medication List Current Medications: Active Medications Acetaminophen (Tylenol -) 650 mg PO Q4H PRN PRN Reason: FEVER OR PAIN Last Admin: 08/11/16 08:27 Dose: 650 mg Apixaban (Eliquis -) 2.5 mg PO BID [facility] Last Admin: 08/12/16 10:13 Dose: 2.5 mg Atorvastatin Calcium (Lipitor -) 10 mg PO HS [facility] Last Admin: 08/11/16 21:09 Dose: 10 mg Cholecalciferol (Vitamin D3 -) 1,000 unit PO DAILY [facility] Last Admin: 08/12/16 10:16 Dose: 1,000 unit Docusate Sodium (Colace -) 100 mg PO BID [facility] Last Admin: 08/12/16 10:41 Dose: Not Given Furosemide (Lasix -) 80 mg PO DAILY [facility] Last Admin: 08/12/16 10:16 Dose: 80 mg Insulin Aspart (Novolog Vial Sliding Scale -) 1 vial SQ ACHS [facility] PRN Reason: Protocol Last Admin: 08/12/16 06:30 Dose: Not Given Insulin Detemir (Levemir Vial) 10 units SQ BID@0700,2200 [facility] Last Admin: 08/12/16 06:23 Dose: 10 units Loratadine (Claritin -) 10 mg PO DAILY PRN PRN Reason: allergy Multivit/Ca Carb/B Cmplx/FA/Prenat (Nephro-Annie -) 1 tablet PO DAILY [facility] Last Admin: 08/12/16 10:16 Dose: 1 tablet Nystatin (Mycostatin Cream -) 1 applic TP BID [facility] Last Admin: 08/12/16 10:17 Dose: 1 applic Ondansetron HCl (Zofran Injection) 4 mg IVPB Q6H PRN PRN Reason: NAUSEA Last Admin: 07/31/16 23:13 Dose: 4 mg Polyethylene Glycol (Miralax (For Daily Use) -) 17 gm PO BID [facility] Last Admin: 08/12/16 10:12 Dose: 17 gm Prednisone (Deltasone -) 30 mg PO DAILY [facility] Last Admin: 08/12/16 10:13 Dose: 30 mg Silver Sulfadiazine (Silvadene -) 1 applic TP DAILY [facility] Last Admin: 08/12/16 10:17 Dose: 1 applic - Objective Vital Signs: Vital Signs Temperature 97.2 F L 08/12/16 06:00 Pulse Rate 98 H 08/12/16 10:00 Respiratory Rate 20 08/12/16 10:00 Blood Pressure 146/74 08/12/16 10:00 O2 Sat by Pulse Oximetry (%) 97 08/11/16 21:00 Constitutional: Yes: No Distress, Calm, Obese Cardiovascular: Yes: Regular Rate and Rhythm, S1, S2. No: JVD, Gallop, Murmur Respiratory: Yes: Regular, CTA Bilaterally. No: Accessory Muscle Use, Rales, Wheezes Extremities: No: Cold Edema: No Neurological: Yes: Alert, Oriented Psychiatric: No: Agitated Labs: CBC, BMP 08/12/16 07:15 08/12/16 08:00 INR, PTT INR 1.18 (0.82-1.09) H 07/10/16 07:40 Assessment/Plan echo 08/2015: nl lv/rv. mild lae. valves wnl. no rvsp. A/p: 85 yo with CAD s/p AZUL to RCA '14, Afib on eliquis, dCHF, HTN, HL, IDDM, GEORGE declines CPAP and CKD on HD who presents s/p fall c/b hip fracture. CAD s/p AZUL to RCA in 03/2014 - on statin. not on ASA b/c of hi risk gib and on AC. - remains stable, no anginal symptoms, nl lvef Afib - off AV alexandr blockade due to prior bradycardia (AT/AFL with slow conduction). - rate here is overall controlled - AC with eliquis (details of decision in prior notes). Held for a few days for NGT placement and in setting of ileus/NPO, now resumed. If concern for surgical site infection and repeat surgery --> will need to hold - defer to surg /id/pmd. chronic HFPEF, chronic venous insuff: -appears euvolemic with edema much better than usual and she always has baseline tachypnea which is unchanged at present; -no sob - continued volume mgm't with HD per renal. Signficant improvement in overall edema. HTN - stable off meds here. Hypotension has resolved. ESRD on HD/hyperkalemia/hyponatremia - volume mgm't with HD and po lasix per renal. GEORGE on CPAP - stable sepsis, uti, bacteremia - mgm't per pmd, id. s/p right IM gamma nail, right distal humerus fx - mgm't per surgery, pmd
--- NOTE | 2016-08-12 14:02 | PN ---
Progress Note, Physician Chief Complaint: Ms Mcdonnell is without complaint. No cp, sob, n/v. - Current Medication List Current Medications: Active Medications Acetaminophen (Tylenol -) 650 mg PO Q4H PRN PRN Reason: FEVER OR PAIN Last Admin: 08/11/16 08:27 Dose: 650 mg Atorvastatin Calcium (Lipitor -) 10 mg PO HS [facility] Last Admin: 08/11/16 21:09 Dose: 10 mg Cholecalciferol (Vitamin D3 -) 1,000 unit PO DAILY [facility] Last Admin: 08/12/16 10:16 Dose: 1,000 unit Docusate Sodium (Colace -) 100 mg PO BID [facility] Last Admin: 08/12/16 10:41 Dose: Not Given Furosemide (Lasix -) 80 mg PO DAILY [facility] Last Admin: 08/12/16 10:16 Dose: 80 mg Insulin Aspart (Novolog Vial Sliding Scale -) 1 vial SQ ACHS [facility] PRN Reason: Protocol Last Admin: 08/12/16 06:30 Dose: Not Given Insulin Detemir (Levemir Vial) 10 units SQ BID@0700,2200 [facility] Last Admin: 08/12/16 06:23 Dose: 10 units Loratadine (Claritin -) 10 mg PO DAILY PRN PRN Reason: allergy Multivit/Ca Carb/B Cmplx/FA/Prenat (Nephro-Annie -) 1 tablet PO DAILY [facility] Last Admin: 08/12/16 10:16 Dose: 1 tablet Nystatin (Mycostatin Cream -) 1 applic TP BID [facility] Last Admin: 08/12/16 10:17 Dose: 1 applic Ondansetron HCl (Zofran Injection) 4 mg IVPB Q6H PRN PRN Reason: NAUSEA Last Admin: 07/31/16 23:13 Dose: 4 mg Polyethylene Glycol (Miralax (For Daily Use) -) 17 gm PO BID [facility] Last Admin: 08/12/16 10:12 Dose: 17 gm Prednisone (Deltasone -) 30 mg PO DAILY [facility] Last Admin: 08/12/16 10:13 Dose: 30 mg Silver Sulfadiazine (Silvadene -) 1 applic TP DAILY [facility] Last Admin: 08/12/16 10:17 Dose: 1 applic - Objective Vital Signs: Vital Signs Temperature 97.2 F L 08/12/16 06:00 Pulse Rate 98 H 08/12/16 10:00 Respiratory Rate 20 08/12/16 10:00 Blood Pressure 146/74 08/12/16 10:00 O2 Sat by Pulse Oximetry (%) 97 08/11/16 21:00 Constitutional: Yes: No Distress, Obese Cardiovascular: Yes: Pulse Irregular. No: Tachycardia, Gallop, Murmur, Rub Respiratory: Yes: Regular, CTA Bilaterally. No: Rales, Rhonchi, Wheezes Gastrointestinal: Yes: Normal Bowel Sounds, Soft. No: Distention, Tenderness Extremities: Yes: WNL Edema: Yes Edema: LLE: 1+, RLE: 1+ Labs: CBC, BMP 08/12/16 07:15 08/12/16 08:00 INR, PTT INR 1.18 (0.82-1.09) H 07/10/16 07:40 Problem List - Problems (1) Hip fracture Code(s): S72.009A - FRACTURE OF UNSP PART OF NECK OF UNSP FEMUR, INIT Qualifiers: Encounter type: initial encounter Fracture type: closed Laterality : right Qualified Code(s): S72.001A - Fracture of unspecified part of neck of right femur, initial encounter for closed fracture (2) (HFpEF) heart failure with preserved ejection fraction Code(s): I50.9 - HEART FAILURE, UNSPECIFIED (3) Bilateral leg edema Code(s): R60.0 - LOCALIZED EDEMA (4) Diabetes Code(s): E11.9 - TYPE 2 DIABETES MELLITUS WITHOUT COMPLICATIONS (5) HTN (hypertension) Code(s): I10 - ESSENTIAL (PRIMARY) HYPERTENSION (6) Hyperkalemia Code(s): E87.5 - HYPERKALEMIA (7) End stage renal failure on dialysis Code(s): N18.6 - END STAGE RENAL DISEASE Z99.2 - DEPENDENCE ON RENAL DIALYSIS (8) Obesity Code(s): E66.9 - OBESITY, UNSPECIFIED Qualifiers: Obesity severity: morbid (9) Anemia Code(s): D64.9 - ANEMIA, UNSPECIFIED (10) Hyponatremia Code(s): E87.1 - HYPO-OSMOLALITY AND HYPONATREMIA (11) UTI (urinary tract infection) Code(s): N39.0 - URINARY TRACT INFECTION, SITE NOT SPECIFIED Assessment/Plan (1) Ileus -resolved -GI following -tolerating regular diet (2) SOB -stable -continue current management -steroid taper per pulmonary (3) Hip fracture Assessment/Plan: -appreciate ID and ortho assistance -patient to return to OR for debridement and wound vac tomorrow Code(s): S72.009A - FRACTURE OF UNSP PART OF NECK OF UNSP FEMUR, INIT Qualifiers: Encounter type: initial encounter Fracture type: closed Laterality : right Qualified Code(s): S72.001A - Fracture of unspecified part of neck of right femur, initial encounter for closed fracture (4) (HFpEF) heart failure with preserved ejection fraction Assessment/Plan: -continue oral lasix -HD MWF Code(s): I50.9 - HEART FAILURE, UNSPECIFIED (5) Bilateral leg edema Assessment/Plan: -stable Code(s): R60.0 - LOCALIZED EDEMA (6) Diabetes Assessment/Plan: -diet restarted -monitor -continue SSI Code(s): E11.9 - TYPE 2 DIABETES MELLITUS WITHOUT COMPLICATIONS (7) HTN (hypertension) Assessment/Plan: -well controlled -continue lasix Code(s): I10 - ESSENTIAL (PRIMARY) HYPERTENSION (8) Hyperkalemia Assessment/Plan: -resolved with HD Code(s): E87.5 - HYPERKALEMIA (9) End stage renal failure on dialysis Assessment/Plan: -continue HD per nephrology Code(s): N18.6 - END STAGE RENAL DISEASE Z99.2 - DEPENDENCE ON RENAL DIALYSIS (10) Obesity Code(s): E66.9 - OBESITY, UNSPECIFIED Qualifiers: Obesity severity: morbid (11) Hyponatremia -much improved with fluid restriction (12) Sepsis -blood culture now growing enterococcus -ID following and managing antibiotics -return to the OR as above (13) Anemia -secondary to renal function -continue epo per nephrology -s/p transfusion (14) Sacral decubitus ulcer -wound care consulted and appreciate assistance -silvadene to wounds
[2016-08-12] MEDS: ACETAMINOPHEN 325 MG TABLET (FP) PO PRN ×2 (15:07→22:30)
--- NOTE | 2016-08-12 15:20 | PN ---
Progress Note (short form) - Note Progress Note: No acute events overnight. No CP or SOB. Intake & Output 08/09/16 08/10/16 08/11/16 08/12/16 23:59 23:59 23:59 23:59 Intake Total 225 1175 1400 300 Output Total 0 Balance 225 1175 1400 300 Weight 180 lb 1.6 oz 178 lb 9 oz 181 lb 6.4 oz 181 lb 5 oz Last Vital Signs Temp Pulse Resp BP Pulse Ox 98.2 F 95 H 18 146/74 97 08/12/16 14:00 08/12/16 14:00 08/12/16 14:00 08/12/16 10:00 08/11/16 21:00 Active Medications Acetaminophen (Tylenol -) 650 mg PO Q4H PRN PRN Reason: FEVER OR PAIN Last Admin: 08/12/16 15:07 Dose: 650 mg Atorvastatin Calcium (Lipitor -) 10 mg PO HS [facility] Last Admin: 08/11/16 21:09 Dose: 10 mg Cholecalciferol (Vitamin D3 -) 1,000 unit PO DAILY [facility] Last Admin: 08/12/16 10:16 Dose: 1,000 unit Docusate Sodium (Colace -) 100 mg PO BID [facility] Last Admin: 08/12/16 10:41 Dose: Not Given Furosemide (Lasix -) 80 mg PO DAILY [facility] Last Admin: 08/12/16 10:16 Dose: 80 mg Insulin Aspart (Novolog Vial Sliding Scale -) 1 vial SQ ACHS [facility] PRN Reason: Protocol Last Admin: 08/12/16 06:30 Dose: Not Given Insulin Detemir (Levemir Vial) 10 units SQ BID@0700,2200 [facility] Last Admin: 08/12/16 06:23 Dose: 10 units Loratadine (Claritin -) 10 mg PO DAILY [facility]N PRN Reason: allergy Multivit/Ca Carb/B Cmplx/FA/Prenat (Nephro-Annie -) 1 tablet PO DAILY [facility] Last Admin: 08/12/16 10:16 Dose: 1 tablet Nystatin (Mycostatin Cream -) 1 applic TP BID [facility] Last Admin: 08/12/16 10:17 Dose: 1 applic Ondansetron HCl (Zofran Injection) 4 mg IVPB Q6H PRN PRN Reason: NAUSEA Last Admin: 07/31/16 23:13 Dose: 4 mg Polyethylene Glycol (Miralax (For Daily Use) -) 17 gm PO BID [facility] Last Admin: 08/12/16 10:12 Dose: 17 gm Prednisone (Deltasone -) 30 mg PO DAILY [facility] Last Admin: 08/12/16 10:13 Dose: 30 mg Silver Sulfadiazine (Silvadene -) 1 applic TP DAILY [facility] Last Admin: 08/12/16 10:17 Dose: 1 applic Constitutional: Yes: NAD Eyes: Yes: WNL HENT: Yes: WNL Neck: Yes: WNL Cardiovascular: Yes: Pulse Irregular, S1, S2 Respiratory: Yes: Diminished at the bases Gastrointestinal: Yes: (+) BS, NT, ND Extremities: Yes: WNL Edema: Yes Labs: Laboratory Results - last 24 hr 08/09/16 08/11/16 08/11/16 11:00 16:14 20:58 WBC RBC Hgb Hct MCV MCHC RDW Plt Count MPV Neutrophils % Lymphocytes % Monocytes % Differential Comment Platelet Estimate ESR Sodium Potassium Chloride Carbon Dioxide Anion Gap BUN Creatinine Creat Clearance w eGFR POC Glucometer 212 254 Random Glucose Calcium Phosphorus Total Bilirubin AST ALT Alkaline Phosphatase Total Protein Albumin Hepatitis A Ab Total Positive Hep Bs Antigen Negative Hep Bs Antibody Non reactive Hep B Core Total Ab Negative 08/12/16 08/12/16 08/12/16 06:05 06:22 07:15 WBC 21.8 H RBC 3.70 Hgb 12.0 Hct 37.3 MCV 100.9 H MCHC 32.3 RDW 17.4 H Plt Count 252 MPV 9.6 Neutrophils % 96.0 H Lymphocytes % 3.0 L D Monocytes % 1.0 L Differential Comment Manual diff done Platelet Estimate Adequate ESR 30 Sodium Potassium Chloride Carbon Dioxide Anion Gap BUN Creatinine Creat Clearance w eGFR POC Glucometer 142 Random Glucose Calcium Phosphorus Total Bilirubin AST ALT Alkaline Phosphatase Total Protein Albumin Hepatitis A Ab Total Hep Bs Antigen Hep Bs Antibody Hep B Core Total Ab 08/12/16 08/12/16 08:00 11:38 WBC RBC Hgb Hct MCV MCHC RDW Plt Count MPV Neutrophils % Lymphocytes % Monocytes % Differential Comment Platelet Estimate ESR Sodium 132 L Potassium 5.0 D Chloride 90 L Carbon Dioxide 29 Anion Gap 13 BUN 83 H D Creatinine 4.4 H D Creat Clearance w eGFR 9.56 POC Glucometer 203 Random Glucose 116 H Calcium 7.7 L Phosphorus 3.9 D Total Bilirubin 0.6 AST 52 H D ALT 59 D Alkaline Phosphatase 239 H D Total Protein 5.8 L Albumin 2.4 L Hepatitis A Ab Total Hep Bs Antigen Hep Bs Antibody Hep B Core Total Ab Problem List - Problems (1) Afib Code(s): I48.91 - UNSPECIFIED ATRIAL FIBRILLATION (2) Anemia Code(s): D64.9 - ANEMIA, UNSPECIFIED (3) Bilateral leg edema Code(s): R60.0 - LOCALIZED EDEMA (4) CHF (congestive heart failure) Code(s): I50.9 - HEART FAILURE, UNSPECIFIED (5) CKD (chronic kidney disease) Code(s): N18.9 - CHRONIC KIDNEY DISEASE, UNSPECIFIED (6) Diabetes Code(s): E11.9 - TYPE 2 DIABETES MELLITUS WITHOUT COMPLICATIONS (7) HTN (hypertension) Code(s): I10 - ESSENTIAL (PRIMARY) HYPERTENSION (8) Renal failure Code(s): N19 - UNSPECIFIED KIDNEY FAILURE (9) Sleep apnea Code(s): G47.30 - SLEEP APNEA, UNSPECIFIED (10) End stage renal failure on dialysis Code(s): N18.6 - END STAGE RENAL DISEASE Z99.2 - DEPENDENCE ON RENAL DIALYSIS Assessment/Plan Acute Respiratory Distress resolved Gastric Distention -improving ESBL E Coli Bacteremia Acute COPD Exacerbation resolving ESRD on HD Morbid Obesity GEORGE Atrial Fibrillation HTN DM - Prednisone - O2 as needed - inhaled bronchodilators - aspiration precautions - HD per renal - rate control Dr Clay
--- NOTE | 2016-08-12 15:28 | PN ---
Progress Note (short form) - Note Progress Note: Renal Follow up for ESRD on HD Pt seen and examined at the bedside no acute complaints, denies sob or chest pain no fever or chills tolerating diet well Vital Signs Temperature 98.2 F 08/12/16 14:00 Pulse Rate 95 H 08/12/16 14:00 Respiratory Rate 18 08/12/16 14:00 Blood Pressure 146/74 08/12/16 10:00 O2 Sat by Pulse Oximetry (%) 97 08/11/16 21:00 Intake & Output 08/09/16 08/10/16 08/11/16 08/12/16 23:59 23:59 23:59 23:59 Intake Total 225 1175 1400 300 Output Total 0 Balance 225 1175 1400 300 Weight 180 lb 1.6 oz 178 lb 9 oz 181 lb 6.4 oz 181 lb 5 oz Gen: NAD, awake and alert, NGT in place CVS: irregular, no M/R Lungs: Dec BS Lung bases, no rales Abd: soft NT/ND Ext: Trace to 1+ edema in LE Access: Left ARM AVF CBC, BMP 08/12/16 07:15 08/12/16 08:00 Current Medications Acetaminophen (Tylenol -) 650 mg PO Q4H PRN PRN Reason: FEVER OR PAIN Last Admin: 08/12/16 15:07 Dose: 650 mg Atorvastatin Calcium (Lipitor -) 10 mg PO HS [facility] Last Admin: 08/11/16 21:09 Dose: 10 mg Cholecalciferol (Vitamin D3 -) 1,000 unit PO DAILY [facility] Last Admin: 08/12/16 10:16 Dose: 1,000 unit Docusate Sodium (Colace -) 100 mg PO BID [facility] Last Admin: 08/12/16 10:41 Dose: Not Given Furosemide (Lasix -) 80 mg PO DAILY [facility] Last Admin: 08/12/16 10:16 Dose: 80 mg Insulin Aspart (Novolog Vial Sliding Scale -) 1 vial SQ ACHS [facility] PRN Reason: Protocol Last Admin: 08/12/16 06:30 Dose: Not Given Insulin Detemir (Levemir Vial) 10 units SQ BID@0700,2200 [facility] Last Admin: 08/12/16 06:23 Dose: 10 units Loratadine (Claritin -) 10 mg PO DAILY PRN PRN Reason: allergy Multivit/Ca Carb/B Cmplx/FA/Prenat (Nephro-Annie -) 1 tablet PO DAILY [facility] Last Admin: 08/12/16 10:16 Dose: 1 tablet Nystatin (Mycostatin Cream -) 1 applic TP BID [facility] Last Admin: 08/12/16 10:17 Dose: 1 applic Ondansetron HCl (Zofran Injection) 4 mg IVPB Q6H PRN PRN Reason: NAUSEA Last Admin: 07/31/16 23:13 Dose: 4 mg Polyethylene Glycol (Miralax (For Daily Use) -) 17 gm PO BID [facility] Last Admin: 08/12/16 10:12 Dose: 17 gm Prednisone (Deltasone -) 30 mg PO DAILY [facility] Last Admin: 08/12/16 10:13 Dose: 30 mg Silver Sulfadiazine (Silvadene -) 1 applic TP DAILY [facility] Last Admin: 08/12/16 10:17 Dose: 1 applic A/P 85 year old woman with PMhx of ESRD on HD (MWF), Afib on A/C, HTN, CAD s/p stents, CHF, DM who presented s/p fall with multiple fractures. #ESRD on HD/Fluid overload For HD today with planed UF of 3-3.5L as tolerated Dose all meds for intermittent HD #Abd distension/Nausea and Vomiting tolerating diet, ileus appears resolved #Fever/Bacteremia Abx as per ID #Intertrochanteric hip fx/Humerus Fracture s/p Gamma Nail Pain control #CKD Related Anemia Hgb at goal hold ARI #SOB secondary to COPD/CHF steroid taper as per pulmonary Massimo Melissa DO
--- NOTE | 2016-08-12 16:40 | PN ---
Progress Note (short form) - Note Progress Note: Pt seen and examined. I had a long conversation with the pt, her , and daughter. All questions and concerns were adressed. Her right hip wound is open, not healing. No pus or obvious signs of infection. + min serous drainage, possible fat necrosis, + fibrinous material. Plan is to do and I and D tomorrow afternoon, clean up the wound, debride if necessary, and apply a VAC dressing. NPO after midnight tonight
[2016-08-12] MEDS ORDERED: INSULIN (NOVOLOG) ASPART 100 UNITS/ML 10ML VIAL ONE (21:12)
[2016-08-12] MEDS: ATORVASTATIN CA 10 MG TABLET (FP) PO SCH (21:14)
[2016-08-13] MEDS: INSULIN DETEMIR 100 UNITS/ML MDV SQ SCH ×2 (06:24→21:11)
[2016-08-13] MEDS: INSULIN SLIDING SCALE (NOVOLOG) 1 VIAL SQ SCH ×4 (06:25→21:12)
[2016-08-13] MEDS ORDERED: INSULIN DETEMIR 100 UNITS/ML MDV SQ ONE (06:36)
[2016-08-13 07:22] LABS: BASOPHIL 0.2 % (0-2.0); EOSINOPHIL 0.1 % (0-4.5); MCH 32.3 pg (25.7-33.7); MEAN CELL VOLUME 100.8 fl (80-96); NEUTROPHILS 90.3 % (42.8-82.8); PLATELET COUNT 207 K/MM3 (134-434); RDW 17.3 % (11.6-15.6); WHITE BLOOD COUNT 17.4 K/mm3 (4.0-10.0)
[2016-08-13 07:54] LABS: CALCIUM 7.6 mg/dL (8.5-10.1); CREATININE 2.4 mg/dL (0.55-1.02); MAGNESIUM 1.8 mg/dL (1.8-2.4); PHOSPHOROUS 2.8 mg/dL (2.5-4.9)
[2016-08-13] MEDS: FUROSEMIDE 40 MG TABLET (FP) PO SCH (10:33)
[2016-08-13] MEDS: predniSONE 10 MG TABLET (UD) PO SCH (10:33)
[2016-08-13] MEDS: POLYETHYLENE GLYCOL 3350 119 GM BTL PO SCH ×2 (10:33→21:11)
[2016-08-13] MEDS: SILVER SULFADIAZINE 1% TOP CREAM 50 GM JAR TP SCH (10:33)
[2016-08-13] MEDS: DOCUSATE SODIUM 100 MG CAPSULE (FP) PO SCH ×2 (10:33→21:11)
[2016-08-13] MEDS: VITAMIN B COMP W-C 1 EA TABLET PO SCH (10:33)
[2016-08-13] MEDS: CHOLECALCIFEROL (VITAMIN D3) 1,000 UNIT TABLET (FP) PO SCH (10:34)
--- NOTE | 2016-08-13 12:30 | PN ---
Progress Note (short form) - Note Progress Note: Chief Complaint: sob, chf History of Present Illness: she does not feel sob at all; + cough persists, mild wheezing. tolerating po food now no cp, palpit, dizziness. no f/c/s. HD yesterday. Current Medications Acetaminophen (Tylenol -) 650 mg PO Q4H PRN PRN Reason: FEVER OR PAIN Last Admin: 08/12/16 22:30 Dose: 650 mg Atorvastatin Calcium (Lipitor -) 10 mg PO HS [facility] Last Admin: 08/12/16 21:14 Dose: 10 mg Cholecalciferol (Vitamin D3 -) 1,000 unit PO DAILY [facility] Last Admin: 08/13/16 10:34 Dose: Not Given Docusate Sodium (Colace -) 100 mg PO BID [facility] Last Admin: 08/13/16 10:33 Dose: Not Given Furosemide (Lasix -) 80 mg PO DAILY [facility] Last Admin: 08/13/16 10:33 Dose: Not Given Insulin Aspart (Novolog Vial Sliding Scale -) 1 vial SQ ACHS [facility] PRN Reason: Protocol Last Admin: 08/13/16 11:32 Dose: Not Given Insulin Detemir (Levemir Vial) 10 units SQ BID@0700,2200 [facility] Last Admin: 08/13/16 06:24 Dose: Not Given Loratadine (Claritin -) 10 mg PO DAILY PRN PRN Reason: allergy Multivit/Ca Carb/B Cmplx/FA/Prenat (Nephro-Annie -) 1 tablet PO DAILY [facility] Last Admin: 08/13/16 10:33 Dose: Not Given Nystatin (Mycostatin Cream -) 1 applic TP BID [facility] Last Admin: 08/12/16 21:13 Dose: 1 applic Ondansetron HCl (Zofran Injection) 4 mg IVPB Q6H PRN PRN Reason: NAUSEA Last Admin: 07/31/16 23:13 Dose: 4 mg Polyethylene Glycol (Miralax (For Daily Use) -) 17 gm PO BID [facility] Last Admin: 08/13/16 10:33 Dose: Not Given Prednisone (Deltasone -) 30 mg PO DAILY [facility] Last Admin: 08/13/16 10:33 Dose: Not Given Silver Sulfadiazine (Silvadene -) 1 applic TP DAILY [facility] Last Admin: 08/13/16 10:33 Dose: Not Given Vital Signs - 24 hr 08/12/16 08/12/16 08/12/16 14:00 14:10 14:40 Temperature 98.2 F Pulse Rate 95 H 94 H 78 Respiratory 18 18 18 Rate Blood Pressure 137/73 107/82 127/64 08/12/16 08/12/16 08/12/16 15:10 15:40 16:10 Temperature Pulse Rate 90 52 L 79 Respiratory 18 18 18 Rate Blood Pressure 121/62 124/71 124/69 08/12/16 08/12/16 08/12/16 16:40 17:10 17:40 Temperature Pulse Rate 95 H 89 93 H Respiratory 18 18 18 Rate Blood Pressure 117/48 107/63 102/35 08/12/16 08/12/16 08/12/16 17:55 18:30 19:00 Temperature 98.5 F Pulse Rate 99 H 82 88 Respiratory 18 18 19 Rate Blood Pressure 101/46 117/71 130/64 08/12/16 08/12/16 08/13/16 21:00 23:00 05:45 Temperature 98 F 98.6 F Pulse Rate 89 96 H Respiratory 18 20 18 Rate Blood Pressure 132/68 122/65 08/13/16 09:00 Temperature Pulse Rate 92 H Respiratory 20 Rate Blood Pressure 136/74 Intake & Output 08/11/16 08/12/16 08/13/16 08/14/16 07:59 07:59 07:59 07:59 Intake Total 1025 1400 1160 Output Total 0 Balance 1025 1400 1160 Weight 181 lb 6.4 oz 181 lb 5 oz 178 lb 8 oz Constitutional: Yes: No Distress, Calm, Obese Cardiovascular: Yes: Irregular, nl S1, S2. No: JVD, Gallop, Murmur Respiratory: Yes: Regular, + wheezes diffusely. No: Accessory Muscle Use, Rales , Extremities: No: Cold Edema: No Neurological: Yes: Alert, Oriented Psychiatric: No: Agitated Labs: CBC, BMP 08/13/16 05:35 08/13/16 05:35 Assessment/Plan echo 08/2015: nl lv/rv. mild lae. valves wnl. no rvsp. A/p: 85 yo with CAD s/p AZUL to RCA '14, Afib on eliquis, dCHF, HTN, HL, IDDM, GEORGE declines CPAP and CKD on HD who presents s/p fall c/b hip fracture. CAD s/p AZUL to RCA in 03/2014 - on statin. not on ASA b/c of hi risk gib and on AC. - remains stable, no anginal symptoms, nl lvef Afib - off AV alexandr blockade due to prior bradycardia (AT/AFL with slow conduction). - rate here is overall controlled - AC with eliquis (details of decision in prior notes). Held for a few days for NGT placement and in setting of ileus/NPO, then resumed. Held again in setting of surgical site infection. Plan for I and D today. Resume when no further interventions planned per surg/pmd. chronic HFPEF, chronic venous insuff: -appears euvolemic with edema much better than usual and she always has baseline tachypnea which is unchanged at present; - continued volume mgm't with HD per renal. Signficant improvement in overall edema. - + wheezes, does not appear to be 2/2 pulmonary edema. Patient declines CXR. Remains asymptomatic, con't to monitor. HTN - stable off meds here. Hypotension has resolved. ESRD on HD/hyperkalemia/hyponatremia - volume mgm't with HD and po lasix per renal. GEORGE on CPAP - stable sepsis, uti, bacteremia, possible surg site infection. - mgm't per pmd, id, surg. s/p right IM gamma nail, right distal humerus fx - mgm't per surgery, pmd
[2016-08-13] MEDS ORDERED: DEXTROSE 5%-WATER - 1,000 ML IV SCH (14:00)
--- NOTE | 2016-08-13 14:38 | PN ---
Progress Note, Physician Chief Complaint: Ms Mcdonnell is without complaint. No cp, sob, n/v. - Current Medication List Current Medications: Active Medications Acetaminophen (Tylenol -) 650 mg PO Q4H PRN PRN Reason: FEVER OR PAIN Last Admin: 08/12/16 22:30 Dose: 650 mg Atorvastatin Calcium (Lipitor -) 10 mg PO HS [facility] Last Admin: 08/12/16 21:14 Dose: 10 mg Cholecalciferol (Vitamin D3 -) 1,000 unit PO DAILY [facility] Last Admin: 08/13/16 10:34 Dose: Not Given Docusate Sodium (Colace -) 100 mg PO BID [facility] Last Admin: 08/13/16 10:33 Dose: Not Given Furosemide (Lasix -) 80 mg PO DAILY [facility] Last Admin: 08/13/16 10:33 Dose: Not Given Dextrose (D5w -) 1,000 mls @ 42 mls/hr IV ASDIR [facility] Insulin Aspart (Novolog Vial Sliding Scale -) 1 vial SQ ACHS [facility] PRN Reason: Protocol Last Admin: 08/13/16 11:32 Dose: Not Given Insulin Detemir (Levemir Vial) 10 units SQ BID@0700,2200 [facility] Last Admin: 08/13/16 06:24 Dose: Not Given Loratadine (Claritin -) 10 mg PO DAILY PRN PRN Reason: allergy Multivit/Ca Carb/B Cmplx/FA/Prenat (Nephro-Annie -) 1 tablet PO DAILY [facility] Last Admin: 08/13/16 10:33 Dose: Not Given Nystatin (Mycostatin Cream -) 1 applic TP BID [facility] Last Admin: 08/12/16 21:13 Dose: 1 applic Ondansetron HCl (Zofran Injection) 4 mg IVPB Q6H PRN PRN Reason: NAUSEA Last Admin: 07/31/16 23:13 Dose: 4 mg Polyethylene Glycol (Miralax (For Daily Use) -) 17 gm PO BID [facility] Last Admin: 08/13/16 10:33 Dose: Not Given Prednisone (Deltasone -) 30 mg PO DAILY [facility] Last Admin: 08/13/16 10:33 Dose: Not Given Silver Sulfadiazine (Silvadene -) 1 applic TP DAILY [facility] Last Admin: 08/13/16 10:33 Dose: Not Given - Objective Vital Signs: Vital Signs Temperature 97.5 F L 08/13/16 13:48 Pulse Rate 98 H 08/13/16 13:48 Respiratory Rate 21 08/13/16 13:48 Blood Pressure 136/74 08/13/16 09:00 O2 Sat by Pulse Oximetry (%) 97 08/11/16 21:00 Constitutional: Yes: No Distress, Calm, Obese Cardiovascular: Yes: Pulse Irregular. No: Gallop, Murmur, Rub Respiratory: Yes: Regular, Cough, Rhonchi (slight). No: Rales, Wheezes Gastrointestinal: Yes: Normal Bowel Sounds, Soft. No: Distention, Tenderness Extremities: Yes: WNL Edema: Yes Edema: LLE: 1+, RLE: 1+ Labs: CBC, BMP 08/13/16 05:35 08/13/16 05:35 INR, PTT INR 1.18 (0.82-1.09) H 07/10/16 07:40 Problem List - Problems (1) Hip fracture Code(s): S72.009A - FRACTURE OF UNSP PART OF NECK OF UNSP FEMUR, INIT Qualifiers: Encounter type: initial encounter Fracture type: closed Laterality : right Qualified Code(s): S72.001A - Fracture of unspecified part of neck of right femur, initial encounter for closed fracture (2) (HFpEF) heart failure with preserved ejection fraction Code(s): I50.9 - HEART FAILURE, UNSPECIFIED (3) Bilateral leg edema Code(s): R60.0 - LOCALIZED EDEMA (4) Diabetes Code(s): E11.9 - TYPE 2 DIABETES MELLITUS WITHOUT COMPLICATIONS (5) HTN (hypertension) Code(s): I10 - ESSENTIAL (PRIMARY) HYPERTENSION (6) Hyperkalemia Code(s): E87.5 - HYPERKALEMIA (7) End stage renal failure on dialysis Code(s): N18.6 - END STAGE RENAL DISEASE Z99.2 - DEPENDENCE ON RENAL DIALYSIS (8) Obesity Code(s): E66.9 - OBESITY, UNSPECIFIED Qualifiers: Obesity severity: morbid (9) Anemia Code(s): D64.9 - ANEMIA, UNSPECIFIED (10) Hyponatremia Code(s): E87.1 - HYPO-OSMOLALITY AND HYPONATREMIA (11) UTI (urinary tract infection) Code(s): N39.0 - URINARY TRACT INFECTION, SITE NOT SPECIFIED Assessment/Plan (1) Ileus -resolved -GI following -tolerating regular diet (2) SOB -stable -continue current management -steroid taper per pulmonary (3) Hip fracture Assessment/Plan: -appreciate ID and ortho assistance -patient to return to OR for debridement and wound vac today Code(s): S72.009A - FRACTURE OF UNSP PART OF NECK OF UNSP FEMUR, INIT Qualifiers: Encounter type: initial encounter Fracture type: closed Laterality : right Qualified Code(s): S72.001A - Fracture of unspecified part of neck of right femur, initial encounter for closed fracture (4) (HFpEF) heart failure with preserved ejection fraction Assessment/Plan: -continue oral lasix -HD MWF Code(s): I50.9 - HEART FAILURE, UNSPECIFIED (5) Bilateral leg edema Assessment/Plan: -stable Code(s): R60.0 - LOCALIZED EDEMA (6) Diabetes Assessment/Plan: -currently npo for surgery -start low rate D5W since glucose is 70 Code(s): E11.9 - TYPE 2 DIABETES MELLITUS WITHOUT COMPLICATIONS (7) HTN (hypertension) Assessment/Plan: -well controlled -continue lasix Code(s): I10 - ESSENTIAL (PRIMARY) HYPERTENSION (8) Hyperkalemia Assessment/Plan: -resolved with HD Code(s): E87.5 - HYPERKALEMIA (9) End stage renal failure on dialysis Assessment/Plan: -continue HD per nephrology Code(s): N18.6 - END STAGE RENAL DISEASE Z99.2 - DEPENDENCE ON RENAL DIALYSIS (10) Obesity Code(s): E66.9 - OBESITY, UNSPECIFIED Qualifiers: Obesity severity: morbid (11) Hyponatremia -much improved with fluid restriction (12) Sepsis -blood culture now growing enterococcus -ID following and managing antibiotics -return to the OR as above (13) Anemia -secondary to renal function -continue epo per nephrology -s/p transfusion (14) Sacral decubitus ulcer -wound care consulted and appreciate assistance -kingdene to wounds
--- NOTE | 2016-08-13 15:28 | PN ---
Progress Note (short form) - Note Progress Note: patient in OR for hip debridement chart reviewed blood culture group d ent- sensi pending spoke with renal for repeat blood cultures in am, vanco level will order vanco for today will f/u wound cultures from operative debridement
[2016-08-13] MEDS ORDERED: BACITRACIN 50,000 UNITS VIAL TP ONE (15:30)
[2016-08-13] MEDS ORDERED: ceFAZolin SODIUM 1 GM VIAL IVPB ONE (15:35)
--- NOTE | 2016-08-13 15:49 | OP ---
Operative Note - Note: Operative Date: 08/13/16 ([facility]) Pre-Operative Diagnosis: right hip wound dehiscence, necrosis Operation: right hip I& D, VAc application Post-Operative Diagnosis: Same as Pre-op Surgeon: Jorge Alberto Friend Budget Coordinator: London Wood Anesthesiologist/MANAGER SKILLED: Manish Cifuentes Anesthesia: General Specimens Removed: necrotic tissue Estimated Blood Loss (mls): 5 Operative Report Dictated: Yes
[2016-08-13] MEDS: ACETAMINOPHEN 325 MG TABLET (FP) PO PRN (17:11)
[2016-08-13] MEDS: oxyCODONE HCL 5 MG TABLET PO PRN (18:15)
[2016-08-13] MEDS: NYSTATIN 100,000 UNIT/GM TOPICAL CREAM 15 GM TUBE TP SCH ×2 (18:17→21:12)
[2016-08-13] MEDS ORDERED: INSULIN (NOVOLOG) ASPART 100 UNITS/ML 10ML VIAL ONE (21:08)
[2016-08-13] MEDS: ATORVASTATIN CA 10 MG TABLET (FP) PO SCH (21:11)
[2016-08-14 00:06] LABS: HEP B SURFACE AB Non Reactive (.)
[2016-08-14] MEDS: INSULIN SLIDING SCALE (NOVOLOG) 1 VIAL SQ SCH ×4 (06:17→21:16)
[2016-08-14] MEDS: INSULIN DETEMIR 100 UNITS/ML MDV SQ SCH ×2 (06:17→21:16)
[2016-08-14 08:58] LABS: BASOPHIL 0.2 % (0-2.0); EOSINOPHIL 0.7 % (0-4.5); MCH 32.6 pg (25.7-33.7); MCHC 32.3 g/dl (32.0-36.0); MEAN CELL VOLUME 100.9 fl (80-96); MEAN PLT VOLUME 9.3 fl (7.5-11.1); PLATELET COUNT 208 K/MM3 (134-434); RDW 17.8 % (11.6-15.6); WHITE BLOOD COUNT 18.4 K/mm3 (4.0-10.0)
--- NOTE | 2016-08-14 09:12 | PN ---
Progress Note, Physician Chief Complaint: S/P I&D of right hip under general anesthesia post op day one History of Present Illness: General anesthesia - Current Medication List Current Medications: Active Medications Acetaminophen (Tylenol -) 650 mg PO Q4H PRN PRN Reason: FEVER OR PAIN Last Admin: 08/13/16 17:11 Dose: 650 mg Atorvastatin Calcium (Lipitor -) 10 mg PO HS [facility] Last Admin: 08/13/16 21:11 Dose: 10 mg Cholecalciferol (Vitamin D3 -) 1,000 unit PO DAILY [facility] Last Admin: 08/13/16 10:34 Dose: Not Given Docusate Sodium (Colace -) 100 mg PO BID [facility] Last Admin: 08/13/16 21:11 Dose: 100 mg Fentanyl (Sublimaze Injection -) 25 mcg IVPUSH [id number] PRN PRN Reason: PAIN Stop: 08/16/16 15:56 Last Admin: 08/13/16 15:53 Dose: 25 mcg Furosemide (Lasix -) 80 mg PO DAILY [facility] Last Admin: 08/13/16 10:33 Dose: Not Given Dextrose (D5w -) 1,000 mls @ 42 mls/hr IV ASDIR [facility] Last Admin: 08/13/16 14:00 Dose: 42 mls/hr Vancomycin HCl 1,000 mg/ (Dextrose) 250 mls @ 250 mls/hr IVPB ONCE ONE PRN Reason: Protocol Stop: 08/14/16 08:59 Insulin Aspart (Novolog Vial Sliding Scale -) 1 vial SQ ACHS [facility] PRN Reason: Protocol Last Admin: 08/14/16 06:17 Dose: Not Given Insulin Detemir (Levemir Vial) 10 units SQ BID@0700,2200 [facility] Last Admin: 08/14/16 06:17 Dose: Not Given Loratadine (Claritin -) 10 mg PO DAILY PRN PRN Reason: allergy Multivit/Ca Carb/B Cmplx/FA/Prenat (Nephro-Annie -) 1 tablet PO DAILY [facility] Last Admin: 08/13/16 10:33 Dose: Not Given Nystatin (Mycostatin Cream -) 1 applic TP BID [facility] Last Admin: 08/13/16 21:12 Dose: 1 applic Ondansetron HCl (Zofran Injection) 4 mg IVPB Q6H PRN PRN Reason: NAUSEA Last Admin: 07/31/16 23:13 Dose: 4 mg Oxycodone HCl (Roxicodone -) 5 mg PO Q4H PRN PRN Reason: PAIN Last Admin: 08/13/16 18:15 Dose: 5 mg Polyethylene Glycol (Miralax (For Daily Use) -) 17 gm PO BID [facility] Last Admin: 08/13/16 21:11 Dose: Not Given Prednisone (Deltasone -) 30 mg PO DAILY [facility] Last Admin: 08/13/16 10:33 Dose: Not Given Silver Sulfadiazine (Silvadene -) 1 applic TP DAILY [facility] Last Admin: 08/13/16 10:33 Dose: Not Given - Objective Vital Signs: Vital Signs Temperature 97.7 F 08/14/16 08:00 Pulse Rate 91 H 08/14/16 08:00 Respiratory Rate 20 08/14/16 08:00 Blood Pressure 123/65 08/14/16 08:00 O2 Sat by Pulse Oximetry (%) 97 08/13/16 21:00 Constitutional: Yes: Well Nourished Cardiovascular: Yes: WNL Respiratory: Yes: WNL Gastrointestinal: Yes: WNL Labs: INR, PTT INR 1.18 (0.82-1.09) H 07/10/16 07:40 Assessment/Plan No adverse effect of anesthetic, patient pain under control, dept of anesthesia will sign off care at this time
[2016-08-14 09:33] LABS: CALCIUM 7.7 mg/dL (8.5-10.1); CREATININE 3.3 mg/dL (0.55-1.02); MAGNESIUM 1.7 mg/dL (1.8-2.4); PHOSPHOROUS 4.6 mg/dL (2.5-4.9)
[2016-08-14] MEDS ORDERED: PT OWN MED DRAWER 7, Y5N ONE (09:44)
--- NOTE | 2016-08-14 10:00 | PN ---
Progress Note (short form) - Note Progress Note: VAC IN PLACE WILL FOLLOW
[2016-08-14] MEDS: FUROSEMIDE 40 MG TABLET (FP) PO SCH (10:16)
[2016-08-14] MEDS: CHOLECALCIFEROL (VITAMIN D3) 1,000 UNIT TABLET (FP) PO SCH (10:16)
[2016-08-14] MEDS: predniSONE 10 MG TABLET (UD) PO SCH (10:16)
[2016-08-14] MEDS: DOCUSATE SODIUM 100 MG CAPSULE (FP) PO SCH ×2 (10:17→21:16)
[2016-08-14] MEDS: NYSTATIN 100,000 UNIT/GM TOPICAL CREAM 15 GM TUBE TP SCH ×2 (10:17→21:17)
[2016-08-14] MEDS: VITAMIN B COMP W-C 1 EA TABLET PO SCH (10:17)
[2016-08-14] MEDS: SILVER SULFADIAZINE 1% TOP CREAM 50 GM JAR TP SCH (10:17)
[2016-08-14] MEDS: POLYETHYLENE GLYCOL 3350 119 GM BTL PO SCH ×2 (10:17→21:17)
--- NOTE | 2016-08-14 12:19 | PN ---
Progress Note, Physician Chief Complaint: Ms Mcdonnell is without complaint. No cp, sob, n/v. Says is eager to get to the SNF. - Current Medication List Current Medications: Active Medications Acetaminophen (Tylenol -) 650 mg PO Q4H PRN PRN Reason: FEVER OR PAIN Last Admin: 08/13/16 17:11 Dose: 650 mg Atorvastatin Calcium (Lipitor -) 10 mg PO HS [facility] Last Admin: 08/13/16 21:11 Dose: 10 mg Cholecalciferol (Vitamin D3 -) 1,000 unit PO DAILY [facility] Last Admin: 08/14/16 10:16 Dose: 1,000 unit Docusate Sodium (Colace -) 100 mg PO BID [facility] Last Admin: 08/14/16 10:17 Dose: Not Given Fentanyl (Sublimaze Injection -) 25 mcg IVPUSH [id number] PRN PRN Reason: PAIN Stop: 08/16/16 15:56 Last Admin: 08/13/16 15:53 Dose: 25 mcg Furosemide (Lasix -) 80 mg PO DAILY [facility] Last Admin: 08/14/16 10:16 Dose: 80 mg Dextrose (D5w -) 1,000 mls @ 42 mls/hr IV ASDIR [facility] Last Admin: 08/13/16 14:00 Dose: 42 mls/hr Vancomycin HCl 1,000 mg/ (Dextrose) 250 mls @ 250 mls/hr IVPB ONCE ONE PRN Reason: Protocol Stop: 08/14/16 08:59 Gentamicin Sulfate/Sodium Chloride (Garamycin 80 Mg Premixed Ivpb -) 100 mls @ 100 mls/hr IVPB ONCE ONE Stop: 08/14/16 12:32 Insulin Aspart (Novolog Vial Sliding Scale -) 1 vial SQ ACHS [facility] PRN Reason: Protocol Last Admin: 08/14/16 06:17 Dose: Not Given Insulin Detemir (Levemir Vial) 10 units SQ BID@0700,2200 [facility] Last Admin: 08/14/16 06:17 Dose: Not Given Loratadine (Claritin -) 10 mg PO DAILY PRN PRN Reason: allergy Multivit/Ca Carb/B Cmplx/FA/Prenat (Nephro-Annie -) 1 tablet PO DAILY [facility] Last Admin: 08/14/16 10:17 Dose: 1 tablet Nystatin (Mycostatin Cream -) 1 applic TP BID [facility] Last Admin: 08/14/16 10:17 Dose: 1 applic Ondansetron HCl (Zofran Injection) 4 mg IVPB Q6H PRN PRN Reason: NAUSEA Last Admin: 07/31/16 23:13 Dose: 4 mg Oxycodone HCl (Roxicodone -) 5 mg PO Q4H PRN PRN Reason: PAIN Last Admin: 08/13/16 18:15 Dose: 5 mg Polyethylene Glycol (Miralax (For Daily Use) -) 17 gm PO BID [facility] Last Admin: 08/14/16 10:17 Dose: Not Given Prednisone (Deltasone -) 30 mg PO DAILY [facility] Last Admin: 08/14/16 10:16 Dose: 30 mg Silver Sulfadiazine (Silvadene -) 1 applic TP DAILY [facility] Last Admin: 08/14/16 10:17 Dose: 1 applic - Objective Vital Signs: Vital Signs Temperature 97.7 F 08/14/16 08:00 Pulse Rate 91 H 08/14/16 11:04 Respiratory Rate 20 08/14/16 08:00 Blood Pressure 123/65 08/14/16 08:00 O2 Sat by Pulse Oximetry (%) 97 08/14/16 11:04 Constitutional: Yes: No Distress, Calm, Obese Cardiovascular: Yes: Pulse Irregular. No: Tachycardia, Gallop, Murmur, Rub Respiratory: Yes: Regular, CTA Bilaterally. No: Rales, Rhonchi, Wheezes Gastrointestinal: Yes: Normal Bowel Sounds, Soft. No: Distention, Tenderness Extremities: Yes: Other (wound vac in place) Edema: Yes Edema: LLE: 1+, RLE: 1+ Labs: CBC, BMP 08/14/16 08:40 08/14/16 08:40 INR, PTT INR 1.18 (0.82-1.09) H 07/10/16 07:40 Problem List - Problems (1) Hip fracture Code(s): S72.009A - FRACTURE OF UNSP PART OF NECK OF UNSP FEMUR, INIT Qualifiers: Qualified Code(s): S72.001A - Fracture of unspecified part of neck of right femur, initial encounter for closed fracture (2) (HFpEF) heart failure with preserved ejection fraction Code(s): I50.9 - HEART FAILURE, UNSPECIFIED (3) Bilateral leg edema Code(s): R60.0 - LOCALIZED EDEMA (4) Diabetes Code(s): E11.9 - TYPE 2 DIABETES MELLITUS WITHOUT COMPLICATIONS (5) HTN (hypertension) Code(s): I10 - ESSENTIAL (PRIMARY) HYPERTENSION (6) Hyperkalemia Code(s): E87.5 - HYPERKALEMIA (7) End stage renal failure on dialysis Code(s): N18.6 - END STAGE RENAL DISEASE Z99.2 - DEPENDENCE ON RENAL DIALYSIS (8) Obesity Code(s): E66.9 - OBESITY, UNSPECIFIED (9) Anemia Code(s): D64.9 - ANEMIA, UNSPECIFIED (10) Hyponatremia Code(s): E87.1 - HYPO-OSMOLALITY AND HYPONATREMIA (11) UTI (urinary tract infection) Code(s): N39.0 - URINARY TRACT INFECTION, SITE NOT SPECIFIED Assessment/Plan (1) Ileus -resolved -regular diet (2) SOB -stable -continue current management -steroid taper per pulmonary (3) Hip fracture Assessment/Plan: -appreciate ID and ortho assistance -s/p I&D -wound vac placed and patient feeling better Code(s): S72.009A - FRACTURE OF UNSP PART OF NECK OF UNSP FEMUR, INIT Qualifiers: Encounter type: initial encounter Fracture type: closed Laterality : right Qualified Code(s): S72.001A - Fracture of unspecified part of neck of right femur, initial encounter for closed fracture (4) (HFpEF) heart failure with preserved ejection fraction Assessment/Plan: -continue oral lasix -HD MWF Code(s): I50.9 - HEART FAILURE, UNSPECIFIED (5) Bilateral leg edema Assessment/Plan: -stable Code(s): R60.0 - LOCALIZED EDEMA (6) Diabetes Assessment/Plan: -diabetic diet -continue current management Code(s): E11.9 - TYPE 2 DIABETES MELLITUS WITHOUT COMPLICATIONS (7) HTN (hypertension) Assessment/Plan: -well controlled -continue lasix Code(s): I10 - ESSENTIAL (PRIMARY) HYPERTENSION (8) Hyperkalemia Assessment/Plan: -resolved with HD Code(s): E87.5 - HYPERKALEMIA (9) End stage renal failure on dialysis Assessment/Plan: -continue HD per nephrology Code(s): N18.6 - END STAGE RENAL DISEASE Z99.2 - DEPENDENCE ON RENAL DIALYSIS (10) Obesity Code(s): E66.9 - OBESITY, UNSPECIFIED Qualifiers: Obesity severity: morbid (11) Hyponatremia -much improved with fluid restriction (12) Sepsis -case d/w ID -await wound cultures -continue vancomycin (13) Anemia -secondary to renal function -continue epo per nephrology -s/p transfusion (14) Sacral decubitus ulcer -wound care consulted and appreciate assistance -joaquinae to wounds
--- NOTE | 2016-08-14 12:19 | PN ---
Progress Note (short form) - Note Progress Note: s: no cp palps dizzy sob; still with cough/wheezing o: Vital Signs Period Temp Pulse Resp BP Sys/Adams Pulse Ox Last 24 Hr 97.1 F-98.5 F 85-98 16-21 94-137/50-69 97-100 NAD. calm JVD difficult to assess due to neck habitus, but does not appear elevated RRR nl S1 S2. No S3, S4 or mrg scattered exp wheeze,nl eff + BS, soft, obese, ND, NT Venous stasis changes with trace LE edema No jaundice, no diaphoresis. aaox3 Current Medications Generic Name Dose Route Start Last Admin Trade Name Freq PRN Reason Stop Dose Admin Acetaminophen 650 mg 07/10/16 16:54 08/13/16 17:11 Tylenol - PO 650 mg Q4H PRN Administration FEVER OR PAIN Atorvastatin Calcium 10 mg 07/10/16 22:00 08/13/16 21:11 Lipitor - PO 10 mg HS DREW Administration Cholecalciferol 1,000 unit 07/12/16 17:00 08/14/16 10:16 Vitamin D3 - PO 1,000 unit DAILY DREW Administration Docusate Sodium 100 mg 07/10/16 22:00 08/14/16 10:17 Colace - PO Not Given BID DREW Fentanyl 25 mcg 08/13/16 15:55 08/13/16 15:53 Sublimaze Injection - IVPUSH 08/16/16 15:56 25 mcg [id number] PRN Administration PAIN Furosemide 80 mg 07/12/16 17:00 08/14/16 10:16 Lasix - PO 80 mg DAILY DREW Administration Dextrose 1,000 mls @ 42 mls/hr 08/13/16 14:00 08/13/16 14:00 D5w - IV 42 mls/hr ASDIR DREW Administration Vancomycin HCl 1,000 mg/ 250 mls @ 250 mls/hr 08/14/16 08:00 Dextrose IVPB 08/14/16 08:59 ONCE ONE Protocol Gentamicin Sulfate/Sodium Chloride 100 mls @ 100 mls/hr 08/14/16 11:33 Garamycin 80 Mg Premixed Ivpb - IVPB 08/14/16 12:32 ONCE ONE Insulin Aspart 1 vial 07/10/16 22:00 08/14/16 06:17 Novolog Vial Sliding Scale - SQ Not Given ACHS [facility] Protocol Insulin Detemir 10 units 08/01/16 22:00 08/14/16 06:17 Levemir Vial SQ Not Given BID@0700,2200 DREW Loratadine 10 mg 07/10/16 16:54 Claritin - PO DAILY PRN allergy Multivit/Ca Carb/B Cmplx/FA/Prenat 1 tablet 07/24/16 10:00 08/14/16 10:17 Nephro-Annie - PO 1 tablet DAILY DREW Administration Nystatin 1 applic 07/24/16 22:00 08/14/16 10:17 Mycostatin Cream - TP 1 applic BID DREW Administration Ondansetron HCl 4 mg 07/10/16 16:54 07/31/16 23:13 Zofran Injection IVPB 4 mg Q6H PRN Administration NAUSEA Oxycodone HCl 5 mg 08/13/16 18:03 08/13/16 18:15 Roxicodone - PO 5 mg Q4H PRN Administration PAIN Polyethylene Glycol 17 gm 07/18/16 10:00 08/14/16 10:17 Miralax (For Daily Use) - PO Not Given BID DREW Prednisone 30 mg 08/07/16 10:00 08/14/16 10:16 Deltasone - PO 30 mg DAILY DREW Administration Silver Sulfadiazine 1 applic 08/09/16 10:00 08/14/16 10:17 Silvadene - TP 1 applic DAILY DREW Administration CBC, BMP 08/14/16 08:40 08/14/16 08:40 echo 08/2015: nl lv/rv. mild lae. valves wnl. no rvsp. A/p: 85 yo with CAD s/p AZUL to RCA '14, Afib on eliquis, dCHF, HTN, HL, IDDM, GEORGE declines CPAP and CKD on HD who presents s/p fall c/b hip fracture. CAD s/p AZUL to RCA in 03/2014 - on statin. not on ASA b/c of hi risk gib and on AC. - remains stable, no anginal symptoms, nl lvef Afib - off AV alexandr blockade due to prior bradycardia (AT/AFL with slow conduction). - rate here is overall controlled - AC with eliquis (details of decision in prior notes). Held for a few days for NGT placement and in setting of ileus/NPO, then resumed. Held again in setting of surgical site infection now s/p i+d. Resume when no further interventions planned per surg chronic HFPEF, chronic venous insuff: -appears euvolemic with edema much better than usual and she always has baseline tachypnea which is unchanged at present; - continued volume mgm't with HD per renal. - + wheezes, does not appear to be 2/2 pulmonary edema. HTN - stable off meds here ESRD on HD/hyperkalemia/hyponatremia - volume mgm't with HD and po lasix per renal. GEORGE on CPAP - stable sepsis, uti, bacteremia, possible surg site infection. - mgm't per pmd, id, surg. s/p right IM gamma nail, right distal humerus fx - mgm't per surgery, pmd
--- NOTE | 2016-08-14 12:56 | PN ---
Progress Note (short form) - Note Progress Note: seen in her room she is much more animated able to move her right hand and forearm which is out of the sling tolerating diet no fevers s/p wound debridement and vac placement yesterday Vital Signs Period Temp Pulse Resp BP Sys/Adams Pulse Ox Last 24 Hr 97.1 F-98.5 F 85-98 16-21 94-137/50-69 97-100 cor-rrr lungs clear abd soft,nt ext no edema vac right hip CBC, BMP 08/14/16 08:40 08/14/16 08:40 Microbiology 08/10/16 09:33 Blood Culture - Preliminary Blood - Peripheral Venous NO GROWTH OBTAINED AFTER 96 HOURS, INCUBATION TO CONTINUE FOR 1 DAYS. 08/10/16 08:40 Blood Culture - Final Blood - Peripheral Venous Enterococcus Faecalis operative wound cultures are pending Current Medications Acetaminophen (Tylenol -) 650 mg PO Q4H PRN PRN Reason: FEVER OR PAIN Last Admin: 08/13/16 17:11 Dose: 650 mg Atorvastatin Calcium (Lipitor -) 10 mg PO HS [facility] Last Admin: 08/13/16 21:11 Dose: 10 mg Cholecalciferol (Vitamin D3 -) 1,000 unit PO DAILY [facility] Last Admin: 08/14/16 10:16 Dose: 1,000 unit Docusate Sodium (Colace -) 100 mg PO BID [facility] Last Admin: 08/14/16 10:17 Dose: Not Given Fentanyl (Sublimaze Injection -) 25 mcg IVPUSH [id number] PRN PRN Reason: PAIN Stop: 08/16/16 15:56 Last Admin: 08/13/16 15:53 Dose: 25 mcg Furosemide (Lasix -) 80 mg PO DAILY [facility] Last Admin: 08/14/16 10:16 Dose: 80 mg Vancomycin HCl 1,000 mg/ (Dextrose) 250 mls @ 250 mls/hr IVPB ONCE ONE PRN Reason: Protocol Stop: 08/14/16 08:59 Gentamicin Sulfate/Sodium Chloride (Garamycin 80 Mg Premixed Ivpb -) 100 mls @ 100 mls/hr IVPB ONCE ONE Stop: 08/14/16 12:32 Insulin Aspart (Novolog Vial Sliding Scale -) 1 vial SQ ACHS DREW PRN Reason: Protocol Last Admin: 08/14/16 06:17 Dose: Not Given Insulin Detemir (Levemir Vial) 10 units SQ BID@0700,2200 [facility] Last Admin: 08/14/16 06:17 Dose: Not Given Loratadine (Claritin -) 10 mg PO DAILY PRN PRN Reason: allergy Multivit/Ca Carb/B Cmplx/FA/Prenat (Nephro-Annie -) 1 tablet PO DAILY [facility] Last Admin: 08/14/16 10:17 Dose: 1 tablet Nystatin (Mycostatin Cream -) 1 applic TP BID [facility] Last Admin: 08/14/16 10:17 Dose: 1 applic Ondansetron HCl (Zofran Injection) 4 mg IVPB Q6H PRN PRN Reason: NAUSEA Last Admin: 07/31/16 23:13 Dose: 4 mg Oxycodone HCl (Roxicodone -) 5 mg PO Q4H PRN PRN Reason: PAIN Last Admin: 08/13/16 18:15 Dose: 5 mg Polyethylene Glycol (Miralax (For Daily Use) -) 17 gm PO BID [facility] Last Admin: 08/14/16 10:17 Dose: Not Given Prednisone (Deltasone -) 30 mg PO DAILY [facility] Last Admin: 08/14/16 10:16 Dose: 30 mg Silver Sulfadiazine (Silvadene -) 1 applic TP DAILY [facility] Last Admin: 08/14/16 10:17 Dose: 1 applic a/p enterococcal bacteremia- vanco and gent with HD today repeat blood cultures (all discussed with renal) echo wound dehiscence- f/u operative wound culture results remains on prednisone- ?taper esrd/hd
[2016-08-14] MEDS ORDERED: GENTAMICIN 80 MG PREMIXED IVPB 100 ML IVPB ONE (13:30)
[2016-08-14] MEDS ORDERED: VANCOMYCIN 1 GRAM (PRE-DOCKED) 250 ML IVPB ONE (13:30)
[2016-08-14] MEDS ORDERED: INSULIN (NOVOLOG) ASPART 100 UNITS/ML 10ML VIAL ONE ×2 (16:43→21:14)
--- NOTE | 2016-08-14 19:14 | OP ---
DATE OF OPERATION: 08/13/2016 PREOPERATIVE DIAGNOSIS: Right hip open nonhealing wound. POSTOPERATIVE DIAGNOSIS: Right hip open nonhealing wound. PROCEDURE: Right hip open incision and drainage and application of VAC dressing. SURGEON: Jason Garcia MD [employer]GICAL [employer]ICE SALES REPRESENTATIVE: SATISH Chavez ANESTHESIA: Manish Cifuentes MD; Elijah Howard Jr., CRNA. LMA anesthesia. BLOOD LOSS: None. BLOOD GIVEN: None. FLUID REPLACEMENT: 500 mL. DRAINS: None. COMPLICATION: None. SPECIMEN: Two culture sticks superficially and deep. This patient is an 85-year-old female, who is a renal dialysis patient, who is having trouble healing her right hip wound after a gamma nail. The 2 distal smaller incisions healed. The more proximal large incision did not. There has never been any signs of obvious infection of this right hip wound. After extensive preoperative discussions with the family, the patient, the and the daughter all understand this may not heal even after this procedure. She has a nonhealing ulcer on the right heel and a nonhealing right sacral decubitus as well. The patient was brought to the operating room, peripheral IV placed, IV sedation given. The patient was placed into a left lateral decubitus position with the right hip up. First a culture stick was sent. The right lower extremity was then prepped and draped in sterile fashion. First I washed out the area with pulse lavage and sterile saline, 1 L bag, which was infused with 50,000 units of bacitracin. Then I took out all the Vicryl sutures, used a curette to scrape away fibrinous material, and the rongeur to take away fibrinous material. There was a grayish discoloration to the posterior tissue, which was fat and gluteus eduard muscle. In the anterior portion of the wound, the tissue looked much more healthy, it was red, it was bleeding after curetting, and overall it looked like relatively normal tissue. The posterior tissue, even after debridement, still did not look as good as I would have liked but it was much more significant tissue. It was much more solid after scraping away a few milliliters of fibrinous material. I continued to use the rongeur and the curettes to remove the abnormal tissue until we got down to bleeding tissue as best as possible. There were no obvious deep sinus tracts that went down to the hip joint itself. I did feel the base of the wound and it did seem to stop. The area was then copiously irrigated and washed out with a total of 1000 mL of sterile saline with a pulse lavage and with infusion of 50,000 units of bacitracin. The area was copiously irrigated and washed out and dried. The area was then washed and dried and the black sponge material was then cut, placed in the appropriate way into the wound, and the hermetically sealed VAC dressing applied. It was then hooked to the machine. The patient was brought then out of the lateral decubitus position, put on a stretcher, extubated. There were no complications during the case. Total operative time was about 20 minutes and she was brought to the regular recovery room in stable condition. JASON GARCIA M.D. [id number]
[2016-08-14] MEDS: ATORVASTATIN CA 10 MG TABLET (FP) PO SCH (21:16)
[2016-08-14] MEDS: ACETAMINOPHEN 325 MG TABLET (FP) PO PRN (21:16)
[2016-08-14] MEDS: oxyCODONE HCL 5 MG TABLET PO PRN (23:31)
[2016-08-15] MEDS: INSULIN SLIDING SCALE (NOVOLOG) 1 VIAL SQ SCH ×4 (06:24→21:03)
[2016-08-15] MEDS: INSULIN DETEMIR 100 UNITS/ML MDV SQ SCH ×2 (06:26→21:02)
[2016-08-15 08:48] LABS: BASOPHIL 0.2 % (0-2.0); EOSINOPHIL 0.6 % (0-4.5); MCH 32.6 pg (25.7-33.7); MEAN CELL VOLUME 101.8 fl (80-96); MEAN PLT VOLUME 9.2 fl (7.5-11.1); NEUTROPHILS 89.2 % (42.8-82.8); PLATELET COUNT 189 K/MM3 (134-434); RDW 18.3 % (11.6-15.6); WHITE BLOOD COUNT 16.4 K/mm3 (4.0-10.0)
[2016-08-15 08:58] LABS: CALCIUM 7.9 mg/dL (8.5-10.1); CREATININE 2.1 mg/dL (0.55-1.02); MAGNESIUM 1.8 mg/dL (1.8-2.4); PHOSPHOROUS 2.4 mg/dL (2.5-4.9)
--- NOTE | 2016-08-15 09:47 | PN ---
Progress Note (short form) - Note Progress Note: Ortho Pt seen and examined s/p right IM gamma nail with non-healing proximal wound Selected Entries 08/15/16 06:00 Temperature 98.0 F Pulse Rate 103 H Respiratory 20 Rate Blood Pressure 124/62 Laboratory Tests 08/15/16 07:45 WBC 16.4 H Hgb 11.5 Hct 36.0 Plt Count [address], calf soft, nt nvi cultures pending a/p continue VAC f/u cultures
--- NOTE | 2016-08-15 09:55 | PN ---
Progress Note (short form) - Note Progress Note: s: no cp palps dizzy sob; still with cough/wheezing o: Vital Signs Period Temp Pulse Resp BP Sys/Adams Pulse Ox Last 24 Hr 97.3 F-98.8 F 52-106 18-20 94-168/50-79 97-97 NAD. calm JVD difficult to assess due to neck habitus, but does not appear elevated RRR nl S1 S2. No S3, S4 or mrg scattered exp wheeze,nl eff + BS, soft, obese, ND, NT Venous stasis changes with trace LE edema No jaundice, no diaphoresis. aaox3 Current Medications Generic Name Dose Route Start Last Admin Trade Name Freq PRN Reason Stop Dose Admin Acetaminophen 650 mg 07/10/16 16:54 08/14/16 21:16 Tylenol - PO 650 mg Q4H PRN Administration FEVER OR PAIN Atorvastatin Calcium 10 mg 07/10/16 22:00 08/14/16 21:16 Lipitor - PO 10 mg HS DREW Administration Cholecalciferol 1,000 unit 07/12/16 17:00 08/14/16 10:16 Vitamin D3 - PO 1,000 unit DAILY DREW Administration Docusate Sodium 100 mg 07/10/16 22:00 08/14/16 21:16 Colace - PO 100 mg BID DREW Administration Fentanyl 25 mcg 08/13/16 15:55 08/13/16 15:53 Sublimaze Injection - IVPUSH 08/16/16 15:56 25 mcg [id number] PRN Administration PAIN Furosemide 80 mg 07/12/16 17:00 08/14/16 10:16 Lasix - PO 80 mg DAILY DREW Administration Insulin Aspart 1 vial 07/10/16 22:00 08/15/16 06:24 Novolog Vial Sliding Scale - SQ Not Given ACHS [facility] Protocol Insulin Detemir 10 units 08/01/16 22:00 08/15/16 06:26 Levemir Vial SQ 10 units BID@0700,2200 DREW Administration Loratadine 10 mg 07/10/16 16:54 Claritin - PO DAILY PRN allergy Multivit/Ca Carb/B Cmplx/FA/Prenat 1 tablet 07/24/16 10:00 08/14/16 10:17 Nephro-Annie - PO 1 tablet DAILY DREW Administration Nystatin 1 applic 07/24/16 22:00 08/14/16 21:17 Mycostatin Cream - TP 1 applic BID DREW Administration Ondansetron HCl 4 mg 07/10/16 16:54 07/31/16 23:13 Zofran Injection IVPB 4 mg Q6H PRN Administration NAUSEA Oxycodone HCl 5 mg 08/13/16 18:03 08/14/16 23:31 Roxicodone - PO 5 mg Q4H PRN Administration PAIN Polyethylene Glycol 17 gm 07/18/16 10:00 08/14/16 21:17 Miralax (For Daily Use) - PO 17 gm BID DREW Administration Prednisone 30 mg 08/07/16 10:00 08/14/16 10:16 Deltasone - PO 30 mg DAILY DREW Administration Silver Sulfadiazine 1 applic 08/09/16 10:00 08/14/16 10:17 Silvadene - TP 1 applic DAILY DREW Administration CBC, BMP 08/15/16 07:45 08/15/16 07:45 echo 08/2015: nl lv/rv. mild lae. valves wnl. no rvsp. A/p: 85 yo with CAD s/p AZUL to RCA ', Afib on eliquis, dCHF, HTN, HL, IDDM, GEORGE declines CPAP and CKD on HD who presents s/p fall c/b hip fracture. CAD s/p AZUL to RCA in 03/2014 - on statin. not on ASA b/c of hi risk gib and on AC. - remains stable, no anginal symptoms, nl lvef Afib - off AV alexandr blockade due to prior bradycardia (AT/AFL with slow conduction). - rate here is overall controlled - AC with eliquis (details of decision in prior notes). Held for a few days for NGT placement and in setting of ileus/NPO, then resumed. Held again in setting of surgical site infection now s/p i+d. Resume when no further interventions planned chronic HFPEF, chronic venous insuff: - appears euvolemic with edema much better than usual and she always has baseline tachypnea which is unchanged at present; - continued volume mgm't with HD per renal. - + wheezes, does not appear to be 2/2 pulmonary edema. HTN - stable off meds here ESRD on HD/hyperkalemia/hyponatremia - volume mgm't with HD and po lasix per renal. GEORGE on CPAP - stable sepsis, uti, bacteremia, possible surg site infection. - mgm't per pmd, id, surg. s/p right IM gamma nail, right distal humerus fx - mgm't per surgery, pmd
[2016-08-15] MEDS ORDERED: PT OWN MED DRAWER 7, Y5N ONE (11:01)
[2016-08-15] MEDS: FUROSEMIDE 40 MG TABLET (FP) PO SCH (11:04)
[2016-08-15] MEDS: VITAMIN B COMP W-C 1 EA TABLET PO SCH (11:04)
[2016-08-15] MEDS: DOCUSATE SODIUM 100 MG CAPSULE (FP) PO SCH ×2 (11:04→21:02)
[2016-08-15] MEDS: CHOLECALCIFEROL (VITAMIN D3) 1,000 UNIT TABLET (FP) PO SCH (11:04)
[2016-08-15] MEDS: predniSONE 10 MG TABLET (UD) PO SCH (11:04)
[2016-08-15] MEDS: oxyCODONE HCL 5 MG TABLET PO PRN ×2 (11:10→21:02)
--- NOTE | 2016-08-15 11:15 | PN ---
Progress Note, Physician Chief Complaint: Patient went to the OR for debridement of the hip wound When I saw her last week the wound appeared infected and after discussion with Dr Allen she was taken to OR for debridement and exploration. "Fresh hardware" from beginning of July. Note poor wound healing risk factor DM and steroids Prednisone 30mg. She complains that she cannot stand up. Persistant WBC elevation part steroids but has always been high in past - Current Medication List Current Medications: Active Medications Acetaminophen (Tylenol -) 650 mg PO Q4H PRN PRN Reason: FEVER OR PAIN Last Admin: 08/14/16 21:16 Dose: 650 mg Atorvastatin Calcium (Lipitor -) 10 mg PO HS [facility] Last Admin: 08/14/16 21:16 Dose: 10 mg Cholecalciferol (Vitamin D3 -) 1,000 unit PO DAILY [facility] Last Admin: 08/14/16 10:16 Dose: 1,000 unit Docusate Sodium (Colace -) 100 mg PO BID [facility] Last Admin: 08/14/16 21:16 Dose: 100 mg Fentanyl (Sublimaze Injection -) 25 mcg IVPUSH [id number] PRN PRN Reason: PAIN Stop: 08/16/16 15:56 Last Admin: 08/13/16 15:53 Dose: 25 mcg Furosemide (Lasix -) 80 mg PO DAILY [facility] Last Admin: 08/14/16 10:16 Dose: 80 mg Insulin Aspart (Novolog Vial Sliding Scale -) 1 vial SQ ACHS [facility] PRN Reason: Protocol Last Admin: 08/15/16 06:24 Dose: Not Given Insulin Detemir (Levemir Vial) 10 units SQ BID@0700,2200 [facility] Last Admin: 08/15/16 06:26 Dose: 10 units Loratadine (Claritin -) 10 mg PO DAILY PRN PRN Reason: allergy Multivit/Ca Carb/B Cmplx/FA/Prenat (Nephro-Annie -) 1 tablet PO DAILY [facility] Last Admin: 08/14/16 10:17 Dose: 1 tablet Nystatin (Mycostatin Cream -) 1 applic TP BID [facility] Last Admin: 08/14/16 21:17 Dose: 1 applic Ondansetron HCl (Zofran Injection) 4 mg IVPB Q6H PRN PRN Reason: NAUSEA Last Admin: 07/31/16 23:13 Dose: 4 mg Oxycodone HCl (Roxicodone -) 5 mg PO Q4H PRN PRN Reason: PAIN Last Admin: 08/14/16 23:31 Dose: 5 mg Polyethylene Glycol (Miralax (For Daily Use) -) 17 gm PO BID [facility] Last Admin: 08/14/16 21:17 Dose: 17 gm Prednisone (Deltasone -) 30 mg PO DAILY [facility] Last Admin: 08/14/16 10:16 Dose: 30 mg Silver Sulfadiazine (Silvadene -) 1 applic TP DAILY [facility] Last Admin: 08/14/16 10:17 Dose: 1 applic - Objective Vital Signs: Vital Signs Temperature 98.0 F 08/15/16 06:00 Pulse Rate 100 H 08/15/16 09:46 Respiratory Rate 20 08/15/16 09:46 Blood Pressure 112/70 08/15/16 09:46 O2 Sat by Pulse Oximetry (%) 97 08/15/16 09:00 Constitutional: Yes: No Distress Neck: Yes: WNL, Supple Cardiovascular: Yes: Regular Rate and Rhythm, S1, S2 Respiratory: Yes: WNL, Regular, CTA Bilaterally, Rhonchi Gastrointestinal: Yes: WNL, Normal Bowel Sounds, Soft. No: Tenderness, Tenderness, Rebound Extremities: Yes: Other (VAC dressing right hip) Edema: No Labs: CBC, BMP 08/15/16 07:45 08/15/16 07:45 INR, PTT INR 1.18 (0.82-1.09) H 07/10/16 07:40 Assessment/Plan Microbiology Laboratory Tests 08/12/16 08/14/16 08/15/16 06:05 12:15 07:45 WBC 16.4 H Hgb 11.5 Plt Count 189 ESR 30 Vancomycin Trough 7.463 Assessment 85 year old female ESRD DM ? steroid dependent with what appears to be infected right hip wound having had surgery for fracture 07/11. The wound was explored and debrided / Wound culture pending. In the meantime she has 1 bottle with E Faecalis blood culture. Note that she was given vanco and gent yesterday. Organism turns out to be " gent synergy screen negative" Repeat blood cultures are sent and pending. Regardless of significance of blood culture and or whether she has transient bacteremia this should to be treated at least 4 weeks IV Vanco at dialysis ok. 2nd issue is an infected post op hip wound ??? gamma nail involved. I would give her the benefit of the doubt and suggest [employer] IV antibiotics. Operative wound culture is pending. She has had an ESBL in blood in the past We could consider Vanco plus zosyn or carbepenem. The preliminary wound c/s has at least 2 differnet GNB possible pseudomonas being 1 of them Also maybe a strep ? Enterococcus in there too!! Treat for polymicrobial wound basically Mal LOPEZ
--- NOTE | 2016-08-15 11:50 | PN ---
Progress Note (short form) - Note Progress Note: No acute events overnight. No CP or SOB. (+) cough but essentially dry. Intake & Output 08/12/16 08/13/16 08/14/16 08/15/16 23:59 23:59 23:59 23:59 Intake Total 1160 2050 700 560 Output Total 0 1010 0 Balance 1160 1040 700 560 Weight 181 lb 5 oz 178 lb 8 oz 171 lb 1 oz 168 lb 6.4 oz Last Vital Signs Temp Pulse Resp BP Pulse Ox 98.0 F 100 H 20 112/70 97 08/15/16 06:00 08/15/16 09:46 08/15/16 09:46 08/15/16 09:46 08/15/16 09:00 Active Medications Acetaminophen (Tylenol -) 650 mg PO Q4H PRN PRN Reason: FEVER OR PAIN Last Admin: 08/14/16 21:16 Dose: 650 mg Atorvastatin Calcium (Lipitor -) 10 mg PO HS [facility] Last Admin: 08/14/16 21:16 Dose: 10 mg Cholecalciferol (Vitamin D3 -) 1,000 unit PO DAILY [facility] Last Admin: 08/15/16 11:04 Dose: 1,000 unit Docusate Sodium (Colace -) 100 mg PO BID [facility] Last Admin: 08/15/16 11:04 Dose: 100 mg Fentanyl (Sublimaze Injection -) 25 mcg IVPUSH [id number] PRN PRN Reason: PAIN Stop: 08/16/16 15:56 Last Admin: 08/13/16 15:53 Dose: 25 mcg Furosemide (Lasix -) 80 mg PO DAILY [facility] Last Admin: 08/15/16 11:04 Dose: 80 mg Piperacillin Sod/Tazobactam Sod (Zosyn 2.25gm Ivpb (Pre-Docked)) 50 mls @ 100 mls/hr IVPB BID [facility] PRN Reason: Protocol Insulin Aspart (Novolog Vial Sliding Scale -) 1 vial SQ ACHS DREW PRN Reason: Protocol Last Admin: 08/15/16 06:24 Dose: Not Given Insulin Detemir (Levemir Vial) 10 units SQ BID@0700,2200 [facility] Last Admin: 08/15/16 06:26 Dose: 10 units Loratadine (Claritin -) 10 mg PO DAILY PRN PRN Reason: allergy Multivit/Ca Carb/B Cmplx/FA/Prenat (Nephro-Annie -) 1 tablet PO DAILY [facility] Last Admin: 08/15/16 11:04 Dose: 1 tablet Nystatin (Mycostatin Cream -) 1 applic TP BID [facility] Last Admin: 08/14/16 21:17 Dose: 1 applic Ondansetron HCl (Zofran Injection) 4 mg IVPB Q6H PRN PRN Reason: NAUSEA Last Admin: 07/31/16 23:13 Dose: 4 mg Oxycodone HCl (Roxicodone -) 5 mg PO Q4H PRN PRN Reason: PAIN Last Admin: 08/15/16 11:10 Dose: 5 mg Polyethylene Glycol (Miralax (For Daily Use) -) 17 gm PO BID [facility] Last Admin: 08/14/16 21:17 Dose: 17 gm Prednisone (Deltasone -) 30 mg PO DAILY [facility] Last Admin: 08/15/16 11:04 Dose: 30 mg Silver Sulfadiazine (Silvadene -) 1 applic TP DAILY [facility] Last Admin: 08/14/16 10:17 Dose: 1 applic Constitutional: Yes: NAD Eyes: Yes: WNL HENT: Yes: WNL Neck: Yes: WNL Cardiovascular: Yes: Pulse Irregular, S1, S2 Respiratory: Yes: Bilateral scattered rhonchi, Diminished at the bases Gastrointestinal: Yes: (+) BS, NT, ND Extremities: Yes: WNL Edema: Yes Labs: Laboratory Results - last 24 hr 08/14/16 08/14/16 08/14/16 12:15 16:49 21:10 WBC RBC Hgb Hct MCV MCHC RDW Plt Count MPV Neutrophils % Lymphocytes % Monocytes % Eosinophils % Basophils % Sodium Potassium Chloride Carbon Dioxide Anion Gap BUN Creatinine POC Glucometer 262 341 Random Glucose Calcium Phosphorus Magnesium Vancomycin Trough 7.463 08/15/16 08/15/16 08/15/16 06:23 07:45 07:45 WBC 16.4 H RBC 3.54 L Hgb 11.5 Hct 36.0 MCV 101.8 H MCHC 32.0 RDW 18.3 H Plt Count 189 MPV 9.2 Neutrophils % 89.2 H Lymphocytes % 6.6 L D Monocytes % 3.4 L Eosinophils % 0.6 Basophils % 0.2 Sodium 140 Potassium 3.7 Chloride 96 L Carbon Dioxide 33 H Anion Gap 11 BUN 35 H D Creatinine 2.1 H D POC Glucometer 130 Random Glucose 129 H Calcium 7.9 L Phosphorus 2.4 L D Magnesium 1.8 Vancomycin Trough Problem List - Problems (1) Afib Code(s): I48.91 - UNSPECIFIED ATRIAL FIBRILLATION (2) Anemia Code(s): D64.9 - ANEMIA, UNSPECIFIED (3) Bilateral leg edema Code(s): R60.0 - LOCALIZED EDEMA (4) CHF (congestive heart failure) Code(s): I50.9 - HEART FAILURE, UNSPECIFIED (5) CKD (chronic kidney disease) Code(s): N18.9 - CHRONIC KIDNEY DISEASE, UNSPECIFIED (6) Diabetes Code(s): E11.9 - TYPE 2 DIABETES MELLITUS WITHOUT COMPLICATIONS (7) HTN (hypertension) Code(s): I10 - ESSENTIAL (PRIMARY) HYPERTENSION (8) Renal failure Code(s): N19 - UNSPECIFIED KIDNEY FAILURE (9) Sleep apnea Code(s): G47.30 - SLEEP APNEA, UNSPECIFIED (10) End stage renal failure on dialysis Code(s): N18.6 - END STAGE RENAL DISEASE Z99.2 - DEPENDENCE ON RENAL DIALYSIS Assessment/Plan Acute Respiratory Distress resolved Gastric Distention -improving ESBL E Coli Bacteremia Acute COPD Exacerbation resolving ESRD on HD Morbid Obesity GEORGE Atrial Fibrillation HTN DM - Taper and D/C Prednisone - O2 as needed - inhaled bronchodilators - aspiration precautions - HD per renal - PT Dr Clay
--- NOTE | 2016-08-15 11:57 | PN ---
Progress Note (short form) - Note Progress Note: Renal Follow up for ESRD on HD Pt seen and examined at the bedside says that she is frustrated because she could not ambulate with PT today has pain in the hip no sob + cough, no sputum production no chest pain weight is 168lbs today Vital Signs Temperature 98.0 F 08/15/16 06:00 Pulse Rate 100 H 08/15/16 09:46 Respiratory Rate 20 08/15/16 09:46 Blood Pressure 112/70 08/15/16 09:46 O2 Sat by Pulse Oximetry (%) 97 08/15/16 09:00 Intake & Output 08/12/16 08/13/16 08/14/16 08/15/16 23:59 23:59 23:59 23:59 Intake Total 1160 2050 700 560 Output Total 0 1010 0 Balance 1160 1040 700 560 Weight 181 lb 5 oz 178 lb 8 oz 171 lb 1 oz 168 lb 6.4 oz Gen: NAD, awake and alert, NGT in place CVS: irregular, no M/R Lungs: Dec BS Lung bases, no rales Abd: soft NT/ND Ext: Trace to 1+ edema in LE Access: Left ARM AVF CBC, BMP 08/15/16 07:45 08/15/16 07:45 Current Medications Acetaminophen (Tylenol -) 650 mg PO Q4H PRN PRN Reason: FEVER OR PAIN Last Admin: 08/14/16 21:16 Dose: 650 mg Atorvastatin Calcium (Lipitor -) 10 mg PO HS [facility] Last Admin: 08/14/16 21:16 Dose: 10 mg Cholecalciferol (Vitamin D3 -) 1,000 unit PO DAILY [facility] Last Admin: 08/15/16 11:04 Dose: 1,000 unit Docusate Sodium (Colace -) 100 mg PO BID [facility] Last Admin: 08/15/16 11:04 Dose: 100 mg Fentanyl (Sublimaze Injection -) 25 mcg IVPUSH [id number] PRN PRN Reason: PAIN Stop: 08/16/16 15:56 Last Admin: 08/13/16 15:53 Dose: 25 mcg Furosemide (Lasix -) 80 mg PO DAILY [facility] Last Admin: 08/15/16 11:04 Dose: 80 mg Piperacillin Sod/Tazobactam Sod (Zosyn 2.25gm Ivpb (Pre-Docked)) 50 mls @ 100 mls/hr IVPB BID [facility] PRN Reason: Protocol Insulin Aspart (Novolog Vial Sliding Scale -) 1 vial SQ ACHS [facility] PRN Reason: Protocol Last Admin: 08/15/16 06:24 Dose: Not Given Insulin Detemir (Levemir Vial) 10 units SQ BID@0700,2200 [facility] Last Admin: 08/15/16 06:26 Dose: 10 units Loratadine (Claritin -) 10 mg PO DAILY PRN PRN Reason: allergy Multivit/Ca Carb/B Cmplx/FA/Prenat (Nephro-Annie -) 1 tablet PO DAILY [facility] Last Admin: 08/15/16 11:04 Dose: 1 tablet Nystatin (Mycostatin Cream -) 1 applic TP BID [facility] Last Admin: 08/14/16 21:17 Dose: 1 applic Ondansetron HCl (Zofran Injection) 4 mg IVPB Q6H PRN PRN Reason: NAUSEA Last Admin: 07/31/16 23:13 Dose: 4 mg Oxycodone HCl (Roxicodone -) 5 mg PO Q4H PRN PRN Reason: PAIN Last Admin: 08/15/16 11:10 Dose: 5 mg Polyethylene Glycol (Miralax (For Daily Use) -) 17 gm PO BID [facility] Last Admin: 08/14/16 21:17 Dose: 17 gm Prednisone (Deltasone -) 20 mg PO DAILY [facility] Stop: 08/19/16 10:01 Silver Sulfadiazine (Silvadene -) 1 applic TP DAILY [facility] Last Admin: 08/14/16 10:17 Dose: 1 applic A/P 85 year old woman with PMhx of ESRD on HD (MWF), Afib on A/C, HTN, CAD s/p stents, CHF, DM who presented s/p fall with multiple fractures. #ESRD on HD/Fluid overload s/p dialysis yesterday with 2.5kg UF weight much improved will continue HD on MWF schedule with UF as tolerated 1.2L fluid restriction daily #Entercoccus Bactermia s/p Vanco and Gent with HD will redose as per ID recs #Intertrochanteric hip fx/Humerus Fracture s/p Gamma Nail Pain control physical therapy #SOB secondary to COPD/CHF steroid taper as per pulmonary Massimo Melissa DO
[2016-08-15] MEDS ORDERED: INSULIN (NOVOLOG) ASPART 100 UNITS/ML 10ML VIAL ONE ×2 (11:58→20:56)
[2016-08-15] MEDS: PIPERACILLIN/TAZOB 2.25 GM 50 ML IVPB SCH ×2 (12:00→21:01)
[2016-08-15] MEDS: POLYETHYLENE GLYCOL 3350 119 GM BTL PO SCH ×2 (12:05→21:50)
--- NOTE | 2016-08-15 13:21 | PN ---
Progress Note, Physician Chief Complaint: Ms Mcdonnell is without complaint. Denies cp, sob, n/v. Eager to be discharged. - Current Medication List Current Medications: Active Medications Acetaminophen (Tylenol -) 650 mg PO Q4H PRN PRN Reason: FEVER OR PAIN Last Admin: 08/14/16 21:16 Dose: 650 mg Atorvastatin Calcium (Lipitor -) 10 mg PO HS [facility] Last Admin: 08/14/16 21:16 Dose: 10 mg Cholecalciferol (Vitamin D3 -) 1,000 unit PO DAILY [facility] Last Admin: 08/15/16 11:04 Dose: 1,000 unit Docusate Sodium (Colace -) 100 mg PO BID [facility] Last Admin: 08/15/16 11:04 Dose: 100 mg Fentanyl (Sublimaze Injection -) 25 mcg IVPUSH [id number] PRN PRN Reason: PAIN Stop: 08/16/16 15:56 Last Admin: 08/13/16 15:53 Dose: 25 mcg Furosemide (Lasix -) 80 mg PO DAILY [facility] Last Admin: 08/15/16 11:04 Dose: 80 mg Piperacillin Sod/Tazobactam Sod (Zosyn 2.25gm Ivpb (Pre-Docked)) 50 mls @ 100 mls/hr IVPB BID [facility] PRN Reason: Protocol Last Admin: 08/15/16 12:00 Dose: 100 mls/hr Vancomycin HCl 1,000 mg/ (Dextrose) 250 mls @ 250 mls/hr IVPB ONCE ONE PRN Reason: Protocol Stop: 08/16/16 08:59 Insulin Aspart (Novolog Vial Sliding Scale -) 1 vial SQ ACHS [facility] PRN Reason: Protocol Last Admin: 08/15/16 12:00 Dose: 3 units Insulin Detemir (Levemir Vial) 10 units SQ BID@0700,2200 [facility] Last Admin: 08/15/16 06:26 Dose: 10 units Loratadine (Claritin -) 10 mg PO DAILY PRN PRN Reason: allergy Multivit/Ca Carb/B Cmplx/FA/Prenat (Nephro-Annie -) 1 tablet PO DAILY [facility] Last Admin: 08/15/16 11:04 Dose: 1 tablet Nystatin (Mycostatin Cream -) 1 applic TP BID [facility] Last Admin: 08/14/16 21:17 Dose: 1 applic Ondansetron HCl (Zofran Injection) 4 mg IVPB Q6H PRN PRN Reason: NAUSEA Last Admin: 07/31/16 23:13 Dose: 4 mg Oxycodone HCl (Roxicodone -) 5 mg PO Q4H PRN PRN Reason: PAIN Last Admin: 08/15/16 11:10 Dose: 5 mg Polyethylene Glycol (Miralax (For Daily Use) -) 17 gm PO BID [facility] Last Admin: 08/15/16 12:05 Dose: 17 gm Prednisone (Deltasone -) 20 mg PO DAILY [facility] Stop: 08/19/16 10:01 Silver Sulfadiazine (Silvadene -) 1 applic TP DAILY [facility] Last Admin: 08/14/16 10:17 Dose: 1 applic - Objective Vital Signs: Vital Signs Temperature 98.0 F 08/15/16 06:00 Pulse Rate 100 H 08/15/16 09:46 Respiratory Rate 20 08/15/16 09:46 Blood Pressure 112/70 08/15/16 09:46 O2 Sat by Pulse Oximetry (%) 97 08/15/16 09:00 Constitutional: Yes: No Distress, Calm, Obese Cardiovascular: Yes: Pulse Irregular. No: Tachycardia, Gallop, Murmur, Rub Respiratory: Yes: Regular, CTA Bilaterally. No: Rales, Rhonchi, Wheezes Gastrointestinal: Yes: Normal Bowel Sounds, Soft. No: Distention, Tenderness Extremities: Yes: WNL Edema: Yes Edema: LLE: 1+, RLE: 1+ Labs: CBC, BMP 08/15/16 07:45 08/15/16 07:45 INR, PTT INR 1.18 (0.82-1.09) H 07/10/16 07:40 Problem List - Problems (1) Hip fracture Code(s): S72.009A - FRACTURE OF UNSP PART OF NECK OF UNSP FEMUR, INIT Qualifiers: Encounter type: initial encounter Fracture type: closed Laterality : right Qualified Code(s): S72.001A - Fracture of unspecified part of neck of right femur, initial encounter for closed fracture (2) (HFpEF) heart failure with preserved ejection fraction Code(s): I50.9 - HEART FAILURE, UNSPECIFIED (3) Bilateral leg edema Code(s): R60.0 - LOCALIZED EDEMA (4) Diabetes Code(s): E11.9 - TYPE 2 DIABETES MELLITUS WITHOUT COMPLICATIONS (5) HTN (hypertension) Code(s): I10 - ESSENTIAL (PRIMARY) HYPERTENSION (6) Hyperkalemia Code(s): E87.5 - HYPERKALEMIA (7) End stage renal failure on dialysis Code(s): N18.6 - END STAGE RENAL DISEASE Z99.2 - DEPENDENCE ON RENAL DIALYSIS (8) Obesity Code(s): E66.9 - OBESITY, UNSPECIFIED Qualifiers: Obesity severity: morbid (9) Anemia Code(s): D64.9 - ANEMIA, UNSPECIFIED (10) Hyponatremia Code(s): E87.1 - HYPO-OSMOLALITY AND HYPONATREMIA (11) UTI (urinary tract infection) Code(s): N39.0 - URINARY TRACT INFECTION, SITE NOT SPECIFIED Assessment/Plan (1) SOB -stable -continue current management -steroid taper per pulmonary (2) Hip fracture Assessment/Plan: -appreciate ID and ortho assistance -s/p I&D -wound vac placed and patient feeling better Code(s): S72.009A - FRACTURE OF UNSP PART OF NECK OF UNSP FEMUR, INIT Qualifiers: Encounter type: initial encounter Fracture type: closed Laterality : right Qualified Code(s): S72.001A - Fracture of unspecified part of neck of right femur, initial encounter for closed fracture (3) (HFpEF) heart failure with preserved ejection fraction Assessment/Plan: -continue oral lasix -HD MWF Code(s): I50.9 - HEART FAILURE, UNSPECIFIED (4) Bilateral leg edema Assessment/Plan: -stable Code(s): R60.0 - LOCALIZED EDEMA (5) Diabetes Assessment/Plan: -needs tight glucose control -change morning levemir to 20 units -maintain evening levemir at 10 units -monitor Code(s): E11.9 - TYPE 2 DIABETES MELLITUS WITHOUT COMPLICATIONS (6) HTN (hypertension) Assessment/Plan: -well controlled -continue lasix Code(s): I10 - ESSENTIAL (PRIMARY) HYPERTENSION (7) Hyperkalemia Assessment/Plan: -resolved with HD Code(s): E87.5 - HYPERKALEMIA (8) End stage renal failure on dialysis Assessment/Plan: -continue HD per nephrology Code(s): N18.6 - END STAGE RENAL DISEASE Z99.2 - DEPENDENCE ON RENAL DIALYSIS (9) Obesity Code(s): E66.9 - OBESITY, UNSPECIFIED Qualifiers: Obesity severity: morbid (10) Hyponatremia -enforced fluid restriction -patient is trying to liberalize fluid intake again (11) Sepsis -case d/w ID -await wound cultures -continue vancomycin -will need another broad spectrum, pseudomonal antibiotic -zosyn added (12) Anemia -secondary to renal function -continue epo per nephrology -s/p transfusion (13) Sacral decubitus ulcer -wound care consulted and appreciate assistance -joaquinae to wounds
[2016-08-15] MEDS: NYSTATIN 100,000 UNIT/GM TOPICAL CREAM 15 GM TUBE TP SCH ×2 (14:05→21:04)
[2016-08-15] MEDS: SILVER SULFADIAZINE 1% TOP CREAM 50 GM JAR TP SCH (14:05)
[2016-08-15] MEDS: ATORVASTATIN CA 10 MG TABLET (FP) PO SCH (21:02)
[2016-08-16] MEDS: oxyCODONE HCL 5 MG TABLET PO PRN ×3 (06:40→21:53)
[2016-08-16] MEDS: INSULIN SLIDING SCALE (NOVOLOG) 1 VIAL SQ SCH ×4 (06:42→21:13)
[2016-08-16] MEDS: INSULIN DETEMIR 100 UNITS/ML MDV SQ SCH ×2 (06:42→21:13)
[2016-08-16] MEDS ORDERED: VANCOMYCIN 1 GRAM (PRE-DOCKED) 250 ML IVPB ONE (08:00)
[2016-08-16 08:50] LABS: BASOPHIL 0.1 % (0-2.0); EOSINOPHIL 0.3 % (0-4.5); MCH 32.3 pg (25.7-33.7); MCHC 31.9 g/dl (32.0-36.0); MEAN PLT VOLUME 9.5 fl (7.5-11.1); NEUTROPHILS 91.3 % (42.8-82.8); PLATELET COUNT 182 K/MM3 (134-434); RDW 17.7 % (11.6-15.6); WHITE BLOOD COUNT 18.9 K/mm3 (4.0-10.0)
[2016-08-16 09:02] LABS: CALCIUM 7.9 mg/dL (8.5-10.1); CREATININE 2.9 mg/dL (0.55-1.02); PHOSPHOROUS 2.8 mg/dL (2.5-4.9)
[2016-08-16 09:38] LABS: MAGNESIUM 1.7 mg/dL (1.8-2.4)
--- NOTE | 2016-08-16 10:41 | PN ---
Progress Note (short form) - Note Progress Note: Ortho Pt is in dialysis s/p right IM gamma nail with non-healing proximal wound, s/p I &D with VAC placement Microbiology 08/13/16 16:00 Hip - Right Gram Stain - Final 08/13/16 16:00 Hip - Right Gram Stain - Final 08/13/16 16:00 Hip - Right Wound Culture - Preliminary Lactose Fermenting Neg Bacilli Non Lactose Fermenting Gnb Streptococcus Viridans Staphylococcus Coagulase Neg 08/13/16 16:00 Hip - Right Wound Culture - Preliminary Lactose Fermenting Neg Bacilli Non Lactose Fermenting Gnb Streptococcus Viridans Staphylococcus Coagulase Neg Laboratory Tests 08/16/16 07:00 WBC 18.9 H Hgb 10.7 Hct 33.5 Plt Count 182 a/p VAC dressing change today ABX as per ID Pt if able will follow
[2016-08-16] MEDS: FUROSEMIDE 40 MG TABLET (FP) PO SCH (11:05)
[2016-08-16] MEDS: predniSONE 20 MG TABLET (UD) PO SCH (11:05)
[2016-08-16] MEDS: VITAMIN B COMP W-C 1 EA TABLET PO SCH (11:05)
[2016-08-16] MEDS: DOCUSATE SODIUM 100 MG CAPSULE (FP) PO SCH ×2 (11:05→21:14)
[2016-08-16] MEDS: CHOLECALCIFEROL (VITAMIN D3) 1,000 UNIT TABLET (FP) PO SCH (11:06)
[2016-08-16] MEDS: PIPERACILLIN/TAZOB 2.25 GM 50 ML IVPB SCH ×2 (11:06→17:53)
[2016-08-16] MEDS: POLYETHYLENE GLYCOL 3350 119 GM BTL PO SCH ×2 (11:06→21:14)
[2016-08-16] MEDS: NYSTATIN 100,000 UNIT/GM TOPICAL CREAM 15 GM TUBE TP SCH ×2 (11:06→21:53)
[2016-08-16] MEDS: SILVER SULFADIAZINE 1% TOP CREAM 50 GM JAR TP SCH (12:00)
[2016-08-16] MEDS ORDERED: INSULIN (NOVOLOG) ASPART 100 UNITS/ML 10ML VIAL ONE ×2 (12:07→21:12)
--- NOTE | 2016-08-16 14:43 | PN ---
Progress Note (short form) - Note Progress Note: Renal Follow up for ESRD on HD Pt seen and examined at the bedside no acute complaints denies any sob some pain at hip wound vac in place no chest pain, Abd pain Vital Signs Temperature 98.1 F 08/16/16 13:44 Pulse Rate 95 H 08/16/16 13:44 Respiratory Rate 22 08/16/16 13:44 Blood Pressure 117/52 08/16/16 13:44 O2 Sat by Pulse Oximetry (%) 97 08/15/16 21:00 Intake & Output 08/13/16 08/14/16 08/15/16 08/16/16 23:59 23:59 23:59 23:59 Intake Total 2050 700 1480 450 Output Total 1010 0 0 0 Balance 2273 450 0573 450 Weight 178 lb 8 oz 171 lb 1 oz 168 lb 6.4 oz 182 lb Gen: NAD, awake and alert, NGT in place CVS: irregular, no M/R Lungs: Dec BS Lung bases, no rales Abd: soft NT/ND Ext: Trace to 1+ edema in LE Access: Left ARM AVF CBC, BMP 08/16/16 07:00 08/16/16 07:00 Current Medications Acetaminophen (Tylenol -) 650 mg PO Q4H PRN PRN Reason: FEVER OR PAIN Last Admin: 08/14/16 21:16 Dose: 650 mg Atorvastatin Calcium (Lipitor -) 10 mg PO HS [facility] Last Admin: 08/15/16 21:02 Dose: 10 mg Cholecalciferol (Vitamin D3 -) 1,000 unit PO DAILY [facility] Last Admin: 08/16/16 11:06 Dose: 1,000 unit Docusate Sodium (Colace -) 100 mg PO BID [facility] Last Admin: 08/16/16 11:05 Dose: 100 mg Fentanyl (Sublimaze Injection -) 25 mcg IVPUSH [id number] PRN PRN Reason: PAIN Stop: 08/16/16 15:56 Last Admin: 08/13/16 15:53 Dose: 25 mcg Furosemide (Lasix -) 80 mg PO DAILY [facility] Last Admin: 08/16/16 11:05 Dose: 80 mg Piperacillin Sod/Tazobactam Sod (Zosyn 2.25gm Ivpb (Pre-Docked)) 50 mls @ 100 mls/hr IVPB BID [facility] PRN Reason: Protocol Last Admin: 08/16/16 11:06 Dose: 100 mls/hr Insulin Aspart (Novolog Vial Sliding Scale -) 1 vial SQ ACHS [facility] PRN Reason: Protocol Last Admin: 08/16/16 06:42 Dose: Not Given Insulin Detemir (Levemir Vial) 10 units SQ HS [facility] Last Admin: 08/15/16 21:02 Dose: 10 units Insulin Detemir (Levemir Vial) 20 units SQ AM [facility] Last Admin: 08/16/16 06:42 Dose: 10 unit Loratadine (Claritin -) 10 mg PO DAILY PRN PRN Reason: allergy Multivit/Ca Carb/B Cmplx/FA/Prenat (Nephro-Annie -) 1 tablet PO DAILY [facility] Last Admin: 08/16/16 11:05 Dose: 1 tablet Nystatin (Mycostatin Cream -) 1 applic TP BID [facility] Last Admin: 08/16/16 11:06 Dose: 1 applic Ondansetron HCl (Zofran Injection) 4 mg IVPB Q6H PRN PRN Reason: NAUSEA Last Admin: 07/31/16 23:13 Dose: 4 mg Oxycodone HCl (Roxicodone -) 5 mg PO Q4H PRN PRN Reason: PAIN Last Admin: 08/16/16 06:40 Dose: 5 mg Polyethylene Glycol (Miralax (For Daily Use) -) 17 gm PO BID [facility] Last Admin: 08/16/16 11:06 Dose: 17 gm Prednisone (Deltasone -) 20 mg PO DAILY [facility] Stop: 08/19/16 10:01 Last Admin: 08/16/16 11:05 Dose: 20 mg Silver Sulfadiazine (Silvadene -) 1 applic TP DAILY [facility] Last Admin: 08/15/16 14:05 Dose: 1 applic A/P 85 year old woman with PMhx of ESRD on HD (MWF), Afib on A/C, HTN, CAD s/p stents, CHF, DM who presented s/p fall with multiple fractures. #ESRD on HD/Fluid overload for dialysis today with goal UF of 2.5-3L as tolerated continue fluid restriction daily dose all meds for intermittent HD #Entercoccus Bactermia on Zosyn will redose Vanco after dialysis #Intertrochanteric hip fx/Humerus Fracture s/p Gamma Nail Pain control physical therapy #SOB secondary to COPD/CHF steroid taper as per pulmonary Massimo Melissa DO
[2016-08-16] MEDS: ACETAMINOPHEN 325 MG TABLET (FP) PO PRN (14:44)
--- NOTE | 2016-08-16 15:43 | PN ---
Progress Note (short form) - Note Progress Note: seen in her room she is much more animated able to more left hand and forearm wants to start PT to walk +BM Vital Signs Period Temp Pulse Resp BP Sys/Adams Pulse Ox Last 24 Hr 97.2 F-98.1 F 46-102 16-22 99-138/44-77 97 cor- rrr lungs bilateral rhonchi abd -soft,nt ext no edema vac in place CBC, BMP 08/16/16 07:00 08/16/16 07:00 Microbiology 08/13/16 16:00 Hip - Right Gram Stain - Final 08/13/16 16:00 Hip - Right Wound Culture - Final Escherichia Coli Esbl Strap Sewer Pseudomonas Aeruginosa Streptococcus Viridans Staphylococcus Coagulase Neg 08/13/16 16:00 Hip - Right Gram Stain - Final 08/13/16 16:00 Hip - Right Wound Culture - Final Escherichia Coli Esbl Strap Sewer Pseudomonas Aeruginosa Streptococcus Viridans Staphylococcus Coagulase Neg 08/14/16 12:15 Blood - Pre-Dialysis Blood Culture - Preliminary NO GROWTH OBTAINED AFTER 48 HOURS, INCUBATION TO CONTINUE FOR 3 DAYS. 08/14/16 12:15 Blood - Pre-Dialysis Blood Culture - Preliminary NO GROWTH OBTAINED AFTER 48 HOURS, INCUBATION TO CONTINUE FOR 3 DAYS. 08/10/16 09:33 Blood - Peripheral Venous Blood Culture - Final NO GROWTH AFTER 5 DAYS INCUBATION 08/10/16 08:40 Blood - Peripheral Venous Blood Culture - Final a/p enterococcal bacteremia-continue vancomycin with HD repeat blood cultures are negative echo wound dehiscence- polymicrobial wound cultures noted continue zosyn f/u final wound culture results remains on prednisone- taper in progress esrd/hd
--- NOTE | 2016-08-16 16:35 | PN ---
Progress Note, Physician Chief Complaint: Ms Mcdonnell is without complaint. Says she wants get stronger. No cp, sob, n/v. - Current Medication List Current Medications: Active Medications Acetaminophen (Tylenol -) 650 mg PO Q4H PRN PRN Reason: FEVER OR PAIN Last Admin: 08/16/16 14:44 Dose: 650 mg Atorvastatin Calcium (Lipitor -) 10 mg PO HS [facility] Last Admin: 08/15/16 21:02 Dose: 10 mg Cholecalciferol (Vitamin D3 -) 1,000 unit PO DAILY [facility] Last Admin: 08/16/16 11:06 Dose: 1,000 unit Docusate Sodium (Colace -) 100 mg PO BID [facility] Last Admin: 08/16/16 11:05 Dose: 100 mg Furosemide (Lasix -) 80 mg PO DAILY [facility] Last Admin: 08/16/16 11:05 Dose: 80 mg Piperacillin Sod/Tazobactam (Sod 2.25 gm/ Dextrose) 50 mls @ 100 mls/hr IVPB Q8H-IV [facility] PRN Reason: Protocol Insulin Aspart (Novolog Vial Sliding Scale -) 1 vial SQ ACHS [facility] PRN Reason: Protocol Last Admin: 08/16/16 06:42 Dose: Not Given Insulin Detemir (Levemir Vial) 10 units SQ HS [facility] Last Admin: 08/15/16 21:02 Dose: 10 units Insulin Detemir (Levemir Vial) 20 units SQ AM [facility] Last Admin: 08/16/16 06:42 Dose: 10 unit Loratadine (Claritin -) 10 mg PO DAILY PRN PRN Reason: allergy Multivit/Ca Carb/B Cmplx/FA/Prenat (Nephro-Annie -) 1 tablet PO DAILY [facility] Last Admin: 08/16/16 11:05 Dose: 1 tablet Nystatin (Mycostatin Cream -) 1 applic TP BID [facility] Last Admin: 08/16/16 11:06 Dose: 1 applic Ondansetron HCl (Zofran Injection) 4 mg IVPB Q6H PRN PRN Reason: NAUSEA Last Admin: 07/31/16 23:13 Dose: 4 mg Oxycodone HCl (Roxicodone -) 5 mg PO Q4H PRN PRN Reason: PAIN Last Admin: 08/16/16 14:38 Dose: 5 mg Polyethylene Glycol (Miralax (For Daily Use) -) 17 gm PO BID [facility] Last Admin: 08/16/16 11:06 Dose: 17 gm Prednisone (Deltasone -) 20 mg PO DAILY [facility] Stop: 08/19/16 10:01 Last Admin: 08/16/16 11:05 Dose: 20 mg Silver Sulfadiazine (Silvadene -) 1 applic TP DAILY [facility] Last Admin: 08/15/16 14:05 Dose: 1 applic - Objective Vital Signs: Vital Signs Temperature 98.1 F 08/16/16 13:44 Pulse Rate 95 H 08/16/16 13:44 Respiratory Rate 22 08/16/16 13:44 Blood Pressure 117/52 08/16/16 13:44 O2 Sat by Pulse Oximetry (%) 97 08/15/16 21:00 Constitutional: Yes: No Distress, Calm, Obese Cardiovascular: Yes: Regular Rate and Rhythm. No: Gallop, Murmur, Rub Respiratory: Yes: Regular, CTA Bilaterally. No: Rales, Rhonchi, Wheezes Gastrointestinal: Yes: Normal Bowel Sounds, Soft. No: Distention, Tenderness Extremities: Yes: WNL Edema: Yes Edema: LLE: 1+, RLE: 1+ Labs: CBC, BMP 08/16/16 07:00 08/16/16 07:00 INR, PTT INR 1.18 (0.82-1.09) H 07/10/16 07:40 Problem List - Problems (1) Hip fracture Code(s): S72.009A - FRACTURE OF UNSP PART OF NECK OF UNSP FEMUR, INIT Qualifiers: Encounter type: initial encounter Fracture type: closed Laterality : right Qualified Code(s): S72.001A - Fracture of unspecified part of neck of right femur, initial encounter for closed fracture (2) (HFpEF) heart failure with preserved ejection fraction Code(s): I50.9 - HEART FAILURE, UNSPECIFIED (3) Bilateral leg edema Code(s): R60.0 - LOCALIZED EDEMA (4) Diabetes Code(s): E11.9 - TYPE 2 DIABETES MELLITUS WITHOUT COMPLICATIONS (5) HTN (hypertension) Code(s): I10 - ESSENTIAL (PRIMARY) HYPERTENSION (6) Hyperkalemia Code(s): E87.5 - HYPERKALEMIA (7) End stage renal failure on dialysis Code(s): N18.6 - END STAGE RENAL DISEASE Z99.2 - DEPENDENCE ON RENAL DIALYSIS (8) Obesity Code(s): E66.9 - OBESITY, UNSPECIFIED Qualifiers: Obesity severity: morbid (9) Anemia Code(s): D64.9 - ANEMIA, UNSPECIFIED (10) Hyponatremia Code(s): E87.1 - HYPO-OSMOLALITY AND HYPONATREMIA (11) UTI (urinary tract infection) Code(s): N39.0 - URINARY TRACT INFECTION, SITE NOT SPECIFIED Assessment/Plan (1) SOB -stable -continue current management -steroid taper per pulmonary (2) Hip fracture Assessment/Plan: -appreciate ID and ortho assistance -s/p I&D -wound vac placed and patient feeling better Code(s): S72.009A - FRACTURE OF UNSP PART OF NECK OF UNSP FEMUR, INIT Qualifiers: Encounter type: initial encounter Fracture type: closed Laterality : right Qualified Code(s): S72.001A - Fracture of unspecified part of neck of right femur, initial encounter for closed fracture (3) (HFpEF) heart failure with preserved ejection fraction Assessment/Plan: -continue oral lasix -HD MWF Code(s): I50.9 - HEART FAILURE, UNSPECIFIED (4) Bilateral leg edema Assessment/Plan: -stable Code(s): R60.0 - LOCALIZED EDEMA (5) Diabetes Assessment/Plan: -needs tight glucose control -changed morning levemir to 20 units, however only received 10 units -maintain evening levemir at 10 units -spoke with RN to make sure patient gets 20 units in the am as needs this for daytime coverage Code(s): E11.9 - TYPE 2 DIABETES MELLITUS WITHOUT COMPLICATIONS (6) HTN (hypertension) Assessment/Plan: -well controlled -continue lasix Code(s): I10 - ESSENTIAL (PRIMARY) HYPERTENSION (7) Hyperkalemia Assessment/Plan: -resolved with HD Code(s): E87.5 - HYPERKALEMIA (8) End stage renal failure on dialysis Assessment/Plan: -continue HD per nephrology Code(s): N18.6 - END STAGE RENAL DISEASE Z99.2 - DEPENDENCE ON RENAL DIALYSIS (9) Obesity Code(s): E66.9 - OBESITY, UNSPECIFIED Qualifiers: Obesity severity: morbid (10) Hyponatremia -enforced fluid restriction -patient is trying to liberalize fluid intake again (11) Sepsis -wound cultures polymicrobial -continue antibiotics per ID -will need long course (12) Anemia -secondary to renal function -continue epo per nephrology -s/p transfusion (13) Sacral decubitus ulcer -wound care consulted and appreciate assistance -kingdene to wounds
[2016-08-16] MEDS ORDERED: oxyCODONE HCL 5 MG TABLET PO ONE (17:45)
--- NOTE | 2016-08-16 18:45 | PN ---
Progress Note (short form) - Note Progress Note: CC: pre-op clearance s: cough persists. no cp, sob, palps, dizziness o: Current Medications Acetaminophen (Tylenol -) 650 mg PO Q4H PRN PRN Reason: FEVER OR PAIN Last Admin: 08/16/16 14:44 Dose: 650 mg Atorvastatin Calcium (Lipitor -) 10 mg PO HS [facility] Last Admin: 08/15/16 21:02 Dose: 10 mg Cholecalciferol (Vitamin D3 -) 1,000 unit PO DAILY [facility] Last Admin: 08/16/16 11:06 Dose: 1,000 unit Docusate Sodium (Colace -) 100 mg PO BID [facility] Last Admin: 08/16/16 11:05 Dose: 100 mg Furosemide (Lasix -) 80 mg PO DAILY [facility] Last Admin: 08/16/16 11:05 Dose: 80 mg Piperacillin Sod/Tazobactam Sod (Zosyn 2.25gm Ivpb (Pre-Docked)) 50 mls @ 100 mls/hr IVPB Q8H-IV [facility]REW PRN Reason: Protocol Last Admin: 08/16/16 17:53 Dose: 100 mls/hr Insulin Aspart (Novolog Vial Sliding Scale -) 1 vial SQ ACHS [facility]RE[facility] PRN Reason: Protocol Last Admin: 08/16/16 17:55 Dose: 3 units Insulin Detemir (Levemir Vial) 10 units SQ HS [facility] Last Admin: 08/15/16 21:02 Dose: 10 units Insulin Detemir (Levemir Vial) 20 units SQ AM [facility] Last Admin: 08/16/16 06:42 Dose: 10 unit Loratadine (Claritin -) 10 mg PO DAILY PRN PRN Reason: allergy Multivit/Ca Carb/B Cmplx/FA/Prenat (Nephro-Annie -) 1 tablet PO DAILY [facility] Last Admin: 08/16/16 11:05 Dose: 1 tablet Nystatin (Mycostatin Cream -) 1 applic TP BID [facility] Last Admin: 08/16/16 11:06 Dose: 1 applic Ondansetron HCl (Zofran Injection) 4 mg IVPB Q6H PRN PRN Reason: NAUSEA Last Admin: 07/31/16 23:13 Dose: 4 mg Oxycodone HCl (Roxicodone -) 5 mg PO Q4H PRN PRN Reason: PAIN Oxycodone HCl (Roxicodone -) 10 mg PO Q4H PRN PRN Reason: PAIN Polyethylene Glycol (Miralax (For Daily Use) -) 17 gm PO BID [facility] Last Admin: 08/16/16 11:06 Dose: 17 gm Prednisone (Deltasone -) 20 mg PO DAILY [facility] Stop: 08/19/16 10:01 Last Admin: 08/16/16 11:05 Dose: 20 mg Silver Sulfadiazine (Silvadene -) 1 applic TP DAILY [facility] Last Admin: 08/16/16 12:00 Dose: 1 applic Vital Signs - 24 hr 08/15/16 08/15/16 08/16/16 21:00 21:49 05:39 Temperature 97.2 F L 97.8 F Pulse Rate 98 H 102 H Respiratory 22 22 22 Rate Blood Pressure 114/60 138/72 O2 Sat by Pulse 97 Oximetry (%) 08/16/16 08/16/16 08/16/16 06:50 07:00 07:30 Temperature 97.5 F L Pulse Rate 82 66 69 Respiratory 16 16 16 Rate Blood Pressure 134/77 120/66 125/65 O2 Sat by Pulse Oximetry (%) 08/16/16 08/16/16 08/16/16 08:00 08:30 09:00 Temperature Pulse Rate 46 L 96 H 96 H Respiratory 16 16 20 Rate Blood Pressure 114/63 134/65 130/66 O2 Sat by Pulse Oximetry (%) 08/16/16 08/16/16 08/16/16 09:30 10:00 10:30 Temperature Pulse Rate 91 H 86 81 Respiratory 16 16 16 Rate Blood Pressure 99/60 100/58 116/46 O2 Sat by Pulse Oximetry (%) 08/16/16 08/16/16 08/16/16 10:35 10:45 13:44 Temperature 97.6 F 98.1 F Pulse Rate 50 L 97 H 95 H Respiratory 16 16 22 Rate Blood Pressure 104/44 129/55 117/52 O2 Sat by Pulse Oximetry (%) Intake & Output 08/14/16 08/15/16 08/16/16 08/17/16 07:59 07:59 07:59 07:59 Intake Total 2200 550 1480 1500 Output Total 1010 0 0 Balance 6765 155 3175 1500 Weight 171 lb 1 oz 168 lb 6.4 oz 182 lb NAD. calm JVD difficult to assess due to neck habitus, but does not appear elevated RRR nl S1 S2. No S3, S4 or mrg scattered wheezes,nl eff + BS, soft, obese, ND, NT Venous stasis changes with trace LE edema No jaundice, no diaphoresis. aaox3 CBC, BMP 08/16/16 07:00 08/16/16 07:00 echo 08/2015: nl lv/rv. mild lae. valves wnl. no rvsp. A/p: 85 yo with CAD s/p AZUL to RCA '14, Afib on eliquis, dCHF, HTN, HL, IDDM, GEORGE declines CPAP and CKD on HD who presents s/p fall c/b hip fracture. CAD s/p AZUL to RCA in 03/2014 - on statin. not on ASA b/c of hi risk gib and on AC. - remains stable, no anginal symptoms, nl lvef Afib - off AV alexandr blockade due to prior bradycardia (AT/AFL with slow conduction). - rate here is overall controlled - AC with eliquis (details of decision in prior notes). Held for a few days for NGT placement and in setting of ileus/NPO, then resumed. Held again in setting of surgical site infection now s/p i+d. Resume when no further interventions planned chronic HFPEF, chronic venous insuff: - appears euvolemic with edema much better than usual and she always has baseline tachypnea which is unchanged at present; - continued volume mgm't with HD per renal. - + wheezes, does not appear to be 2/2 pulmonary edema. HTN - stable off meds here ESRD on HD/hyperkalemia/hyponatremia - volume mgm't with HD and po lasix per renal. GEORGE on CPAP - stable sepsis, uti, bacteremia, possible surg site infection. - mgm't per pmd, id, surg. s/p right IM gamma nail, right distal humerus fx - mgm't per surgery, pmd
[2016-08-16] MEDS: ATORVASTATIN CA 10 MG TABLET (FP) PO SCH (21:14)
[2016-08-17] MEDS: PIPERACILLIN/TAZOB 2.25 GM 50 ML IVPB SCH ×3 (01:38→17:05)
[2016-08-17] MEDS: INSULIN SLIDING SCALE (NOVOLOG) 1 VIAL SQ SCH ×4 (06:19→21:03)
[2016-08-17] MEDS: INSULIN DETEMIR 100 UNITS/ML MDV SQ SCH ×3 (06:19→22:00)
[2016-08-17] MEDS: oxyCODONE HCL 5 MG TABLET PO PRN ×2 (07:48→20:50)
[2016-08-17] MEDS: ACETAMINOPHEN 325 MG TABLET (FP) PO PRN (07:48)
[2016-08-17 07:52] LABS: BASOPHIL 0.2 % (0-2.0); EOSINOPHIL 0.5 % (0-4.5); MCH 32.7 pg (25.7-33.7); MCHC 31.9 g/dl (32.0-36.0); MEAN CELL VOLUME 102.4 fl (80-96); MEAN PLT VOLUME 9.3 fl (7.5-11.1); NEUTROPHILS 86.3 % (42.8-82.8); PLATELET COUNT 200 K/MM3 (134-434); RDW 17.5 % (11.6-15.6); WHITE BLOOD COUNT 17.2 K/mm3 (4.0-10.0)
[2016-08-17 08:15] LABS: CREATININE 2.1 mg/dL (0.55-1.02); PHOSPHOROUS 2.9 mg/dL (2.5-4.9)
[2016-08-17] MEDS: FUROSEMIDE 40 MG TABLET (FP) PO SCH (09:59)
[2016-08-17] MEDS: predniSONE 20 MG TABLET (UD) PO SCH (09:59)
[2016-08-17] MEDS: DOCUSATE SODIUM 100 MG CAPSULE (FP) PO SCH ×2 (09:59→21:00)
[2016-08-17] MEDS: CHOLECALCIFEROL (VITAMIN D3) 1,000 UNIT TABLET (FP) PO SCH (09:59)
[2016-08-17] MEDS: VITAMIN B COMP W-C 1 EA TABLET PO SCH (09:59)
[2016-08-17] MEDS: NYSTATIN 100,000 UNIT/GM TOPICAL CREAM 15 GM TUBE TP SCH ×2 (10:01→20:59)
[2016-08-17] MEDS: SILVER SULFADIAZINE 1% TOP CREAM 50 GM JAR TP SCH (10:01)
[2016-08-17] MEDS: POLYETHYLENE GLYCOL 3350 119 GM BTL PO SCH ×2 (10:02→21:00)
--- NOTE | 2016-08-17 11:00 | PN ---
Progress Note (short form) - Note Progress Note: s: no cp palps dizzy sob; still with cough, chronic per pt o: Vital Signs Period Temp Pulse Resp BP Sys/Adams Pulse Ox Last 24 Hr 97.8 F-98.1 F 92-106 20-22 117-129/52-65 96 NAD. calm JVD difficult to assess due to neck habitus, but does not appear elevated RRR nl S1 S2. No S3, S4 or mrg scattered exp wheeze,nl eff + BS, soft, obese, ND, NT Venous stasis changes with trace LE edema No jaundice, no diaphoresis. aaox3 Current Medications Generic Name Dose Route Start Last Admin Trade Name Freq PRN Reason Stop Dose Admin Acetaminophen 650 mg 07/10/16 16:54 08/17/16 07:48 Tylenol - PO 650 mg Q4H PRN Administration FEVER OR PAIN Atorvastatin Calcium 10 mg 07/10/16 22:00 08/16/16 21:14 Lipitor - PO 10 mg HS DREW Administration Cholecalciferol 1,000 unit 07/12/16 17:00 08/17/16 09:59 Vitamin D3 - PO 1,000 unit DAILY DREW Administration Docusate Sodium 100 mg 07/10/16 22:00 08/17/16 09:59 Colace - PO 100 mg BID DREW Administration Furosemide 80 mg 07/12/16 17:00 08/17/16 09:59 Lasix - PO 80 mg DAILY DREW Administration Piperacillin Sod/Tazobactam Sod 50 mls @ 100 mls/hr 08/16/16 18:00 08/17/16 10: 00 Zosyn 2.25gm Ivpb (Pre-Docked) IVPB 100 mls/hr Q8H-IV DREW Administration Protocol Insulin Aspart 1 vial 07/10/16 22:00 08/17/16 06:19 Novolog Vial Sliding Scale - SQ Not Given ACHS DREW Protocol Insulin Detemir 10 units 08/15/16 22:00 08/16/16 21:13 Levemir Vial SQ 10 units HS [facility]REW Administration Insulin Detemir 20 units 08/16/16 07:00 08/17/16 06:19 Levemir Vial SQ Not Given AM [facility]REW Loratadine 10 mg 07/10/16 16:54 Claritin - PO DAILY PRN allergy Multivit/Ca Carb/B Cmplx/FA/Prenat 1 tablet 07/24/16 10:00 08/17/16 09:59 Nephro-Annie - PO 1 tablet DAILY DREW Administration Nystatin 1 applic 07/24/16 22:00 08/17/16 10:01 Mycostatin Cream - TP 1 applic BID DREW Administration Ondansetron HCl 4 mg 07/10/16 16:54 07/31/16 23:13 Zofran Injection IVPB 4 mg Q6H PRN Administration NAUSEA Oxycodone HCl 5 mg 08/16/16 16:34 08/17/16 07:48 Roxicodone - PO 5 mg Q4H PRN Administration PAIN Oxycodone HCl 10 mg 08/16/16 16:34 Roxicodone - PO Q4H PRN PAIN Polyethylene Glycol 17 gm 07/18/16 10:00 08/17/16 10:02 Miralax (For Daily Use) - PO Not Given BID [facility]RE[facility] Prednisone 20 mg 08/16/16 10:00 08/17/16 09:59 Deltasone - PO 08/19/16 10:01 20 mg DAILY DRE[facility] Administration Silver Sulfadiazine 1 applic 08/09/16 10:00 08/17/16 10:01 Silvadene - TP 1 applic DAILY [facility] Administration CBC, BMP 08/17/16 06:20 08/17/16 06:20 echo 08/2015: nl lv/rv. mild lae. valves wnl. no rvsp. echo 08/2016: tds, mild conc lvh, nl lvef, nl rv, mild-mod as, mac, mild tr, mild pr, rvsp 30-40 A/p: 85 yo with CAD s/p AZUL to RCA '14, Afib on eliquis, dCHF, HTN, HL, IDDM, GEORGE declines CPAP and CKD on HD who presents s/p fall c/b hip fracture. CAD s/p AZUL to RCA in 03/2014 - on statin. not on ASA b/c of hi risk gib and on AC. - remains stable, no anginal symptoms, nl lvef Afib - off AV alexandr blockade due to prior bradycardia (AT/AFL with slow conduction). - rate here is overall controlled - AC with eliquis (details of decision in prior notes). Held for a few days for NGT placement and in setting of ileus/NPO, then resumed. Held again in setting of surgical site infection now s/p i+d with wound vac. Resume AC when no further interventions planned. chronic HFPEF, chronic venous insuff: - appears euvolemic with edema much better than usual and she always has baseline tachypnea which is unchanged at present; - continued volume mgm't with HD per renal. - + chronic wheezes/cough, does not appear to be 2/2 pulmonary edema. HTN - stable off meds here ESRD on HD/hyperkalemia/hyponatremia - volume mgm't with HD and po lasix per renal. GEORGE on CPAP - stable sepsis, uti, bacteremia, surg site infection: - mgm't per pmd, id, surg. - has wound vac now s/p right IM gamma nail, right distal humerus fx - mgm't per surgery, pmd
[2016-08-17] MEDS ORDERED: INSULIN (NOVOLOG) ASPART 100 UNITS/ML 10ML VIAL ONE ×2 (11:20→20:49)
--- NOTE | 2016-08-17 11:21 | PN ---
Progress Note, Physician Chief Complaint: The patient is lying in bed. by her bed. denies any new problems. Had uneventful HD yesterday. History of Present Illness: Mostly in bed lately. Has Enterococcus sepsis. - Current Medication List Current Medications: Active Medications Acetaminophen (Tylenol -) 650 mg PO Q4H PRN PRN Reason: FEVER OR PAIN Last Admin: 08/17/16 07:48 Dose: 650 mg Atorvastatin Calcium (Lipitor -) 10 mg PO HS [facility] Last Admin: 08/16/16 21:14 Dose: 10 mg Cholecalciferol (Vitamin D3 -) 1,000 unit PO DAILY [facility] Last Admin: 08/17/16 09:59 Dose: 1,000 unit Docusate Sodium (Colace -) 100 mg PO BID [facility] Last Admin: 08/17/16 09:59 Dose: 100 mg Furosemide (Lasix -) 80 mg PO DAILY [facility] Last Admin: 08/17/16 09:59 Dose: 80 mg Piperacillin Sod/Tazobactam Sod (Zosyn 2.25gm Ivpb (Pre-Docked)) 50 mls @ 100 mls/hr IVPB Q8H-IV [facility]REW PRN Reason: Protocol Last Admin: 08/17/16 10:00 Dose: 100 mls/hr Insulin Aspart (Novolog Vial Sliding Scale -) 1 vial SQ ACHS [facility] PRN Reason: Protocol Last Admin: 08/17/16 06:19 Dose: Not Given Insulin Detemir (Levemir Vial) 10 units SQ HS [facility] Last Admin: 08/16/16 21:13 Dose: 10 units Insulin Detemir (Levemir Vial) 20 units SQ AM [facility] Last Admin: 08/17/16 06:19 Dose: Not Given Loratadine (Claritin -) 10 mg PO DAILY PRN PRN Reason: allergy Multivit/Ca Carb/B Cmplx/FA/Prenat (Nephro-Annie -) 1 tablet PO DAILY [facility] Last Admin: 08/17/16 09:59 Dose: 1 tablet Nystatin (Mycostatin Cream -) 1 applic TP BID [facility] Last Admin: 08/17/16 10:01 Dose: 1 applic Ondansetron HCl (Zofran Injection) 4 mg IVPB Q6H PRN PRN Reason: NAUSEA Last Admin: 07/31/16 23:13 Dose: 4 mg Oxycodone HCl (Roxicodone -) 5 mg PO Q4H PRN PRN Reason: PAIN Last Admin: 08/17/16 07:48 Dose: 5 mg Oxycodone HCl (Roxicodone -) 10 mg PO Q4H PRN PRN Reason: PAIN Polyethylene Glycol (Miralax (For Daily Use) -) 17 gm PO BID [facility] Last Admin: 08/17/16 10:02 Dose: Not Given Prednisone (Deltasone -) 20 mg PO DAILY [facility] Stop: 08/19/16 10:01 Last Admin: 08/17/16 09:59 Dose: 20 mg Silver Sulfadiazine (Silvadene -) 1 applic TP DAILY [facility] Last Admin: 08/17/16 10:01 Dose: 1 applic - Objective Vital Signs: Vital Signs Temperature 97.8 F 08/17/16 05:54 Pulse Rate 98 H 08/17/16 05:54 Respiratory Rate 20 08/17/16 05:54 Blood Pressure 120/61 08/17/16 05:54 O2 Sat by Pulse Oximetry (%) 96 08/16/16 21:00 Constitutional: Yes: Calm HENT: Yes: Atraumatic Neck: Yes: Trachea Midline Cardiovascular: Yes: S1, S2 Respiratory: Yes: CTA Bilaterally Gastrointestinal: Yes: Soft, Abdomen, Obese Extremities: Yes: Cool Neurological: Yes: Alert, Oriented Labs: CBC, BMP 08/17/16 06:20 08/17/16 06:20 INR, PTT INR 1.18 (0.82-1.09) H 07/10/16 07:40 Problem List - Problems (1) Hip fracture Code(s): S72.009A - FRACTURE OF UNSP PART OF NECK OF UNSP FEMUR, INIT Qualifiers: Encounter type: initial encounter Fracture type: closed Laterality : right Qualified Code(s): S72.001A - Fracture of unspecified part of neck of right femur, initial encounter for closed fracture (2) Ofvoi-bd-atlzihk kidney injury Code(s): N17.9 - ACUTE KIDNEY FAILURE, UNSPECIFIED N18.9 - CHRONIC KIDNEY DISEASE, UNSPECIFIED (3) Afib Code(s): I48.91 - UNSPECIFIED ATRIAL FIBRILLATION (4) Anemia Code(s): D64.9 - ANEMIA, UNSPECIFIED (5) CKD (chronic kidney disease) Code(s): N18.9 - CHRONIC KIDNEY DISEASE, UNSPECIFIED (6) Coronary arteriosclerosis Code(s): I25.10 - ATHSCL HEART DISEASE OF INUPIAT CORONARY ARTERY W/O ANG PCTRS (7) Diabetes Code(s): E11.9 - TYPE 2 DIABETES MELLITUS WITHOUT COMPLICATIONS (8) Edema Code(s): R60.9 - EDEMA, UNSPECIFIED (9) End stage renal failure on dialysis Code(s): N18.6 - END STAGE RENAL DISEASE Z99.2 - DEPENDENCE ON RENAL DIALYSIS (10) Obesity Code(s): E66.9 - OBESITY, UNSPECIFIED Qualifiers: Obesity severity: morbid (11) Bacteremia Code(s): R78.81 - BACTEREMIA Assessment/Plan Patient with ESRD, on HFD admitted with traumatic Fx of the right hip and right humerus. S/p ORIF right hip S/p Enterococcus sepsis. Had uneventful HD yesterday. Next HD on Friday. Concur with the current management. Radha Hearn MD
--- NOTE | 2016-08-17 11:41 | PN ---
Progress Note, Physician Chief Complaint: Ms Mcdonnell is without complaint. No cp, sob, n/v. sitting in chair - Current Medication List Current Medications: Active Medications Acetaminophen (Tylenol -) 650 mg PO Q4H PRN PRN Reason: FEVER OR PAIN Last Admin: 08/17/16 07:48 Dose: 650 mg Atorvastatin Calcium (Lipitor -) 10 mg PO HS [facility] Last Admin: 08/16/16 21:14 Dose: 10 mg Cholecalciferol (Vitamin D3 -) 1,000 unit PO DAILY [facility] Last Admin: 08/17/16 09:59 Dose: 1,000 unit Docusate Sodium (Colace -) 100 mg PO BID [facility] Last Admin: 08/17/16 09:59 Dose: 100 mg Furosemide (Lasix -) 80 mg PO DAILY [facility] Last Admin: 08/17/16 09:59 Dose: 80 mg Piperacillin Sod/Tazobactam Sod (Zosyn 2.25gm Ivpb (Pre-Docked)) 50 mls @ 100 mls/hr IVPB Q8H-IV DREW PRN Reason: Protocol Last Admin: 08/17/16 10:00 Dose: 100 mls/hr Insulin Aspart (Novolog Vial Sliding Scale -) 1 vial SQ ACHS DREW PRN Reason: Protocol Last Admin: 08/17/16 11:22 Dose: 5 units Insulin Detemir (Levemir Vial) 10 units SQ HS [facility] Last Admin: 08/16/16 21:13 Dose: 10 units Insulin Detemir (Levemir Vial) 20 units SQ AM [facility] Last Admin: 08/17/16 06:19 Dose: Not Given Loratadine (Claritin -) 10 mg PO DAILY PRN PRN Reason: allergy Multivit/Ca Carb/B Cmplx/FA/Prenat (Nephro-Annie -) 1 tablet PO DAILY [facility] Last Admin: 08/17/16 09:59 Dose: 1 tablet Nystatin (Mycostatin Cream -) 1 applic TP BID [facility] Last Admin: 08/17/16 10:01 Dose: 1 applic Ondansetron HCl (Zofran Injection) 4 mg IVPB Q6H PRN PRN Reason: NAUSEA Last Admin: 07/31/16 23:13 Dose: 4 mg Oxycodone HCl (Roxicodone -) 5 mg PO Q4H PRN PRN Reason: PAIN Last Admin: 08/17/16 07:48 Dose: 5 mg Oxycodone HCl (Roxicodone -) 10 mg PO Q4H PRN PRN Reason: PAIN Polyethylene Glycol (Miralax (For Daily Use) -) 17 gm PO BID [facility] Last Admin: 08/17/16 10:02 Dose: Not Given Prednisone (Deltasone -) 20 mg PO DAILY [facility] Stop: 08/19/16 10:01 Last Admin: 08/17/16 09:59 Dose: 20 mg Silver Sulfadiazine (Silvadene -) 1 applic TP DAILY [facility] Last Admin: 08/17/16 10:01 Dose: 1 applic - Objective Vital Signs: Vital Signs Temperature 97.8 F 08/17/16 09:00 Pulse Rate 96 H 08/17/16 09:00 Respiratory Rate 18 08/17/16 09:00 Blood Pressure 118/60 08/17/16 09:00 O2 Sat by Pulse Oximetry (%) 97 08/17/16 09:00 Constitutional: Yes: No Distress, Calm, Obese Cardiovascular: Yes: Regular Rate and Rhythm. No: Gallop, Murmur, Rub Respiratory: Yes: Regular, CTA Bilaterally. No: Rales, Rhonchi, Wheezes Gastrointestinal: Yes: Normal Bowel Sounds, Soft. No: Distention, Tenderness Extremities: Yes: WNL Edema: Yes Edema: LLE: 1+, RLE: 1+ Labs: CBC, BMP 08/17/16 06:20 08/17/16 06:20 INR, PTT INR 1.18 (0.82-1.09) H 07/10/16 07:40 Problem List - Problems (1) Hip fracture Code(s): S72.009A - FRACTURE OF UNSP PART OF NECK OF UNSP FEMUR, INIT Qualifiers: Encounter type: initial encounter Fracture type: closed Laterality : right Qualified Code(s): S72.001A - Fracture of unspecified part of neck of right femur, initial encounter for closed fracture (2) (HFpEF) heart failure with preserved ejection fraction Code(s): I50.9 - HEART FAILURE, UNSPECIFIED (3) Bilateral leg edema Code(s): R60.0 - LOCALIZED EDEMA (4) Diabetes Code(s): E11.9 - TYPE 2 DIABETES MELLITUS WITHOUT COMPLICATIONS (5) HTN (hypertension) Code(s): I10 - ESSENTIAL (PRIMARY) HYPERTENSION (6) Hyperkalemia Code(s): E87.5 - HYPERKALEMIA (7) End stage renal failure on dialysis Code(s): N18.6 - END STAGE RENAL DISEASE Z99.2 - DEPENDENCE ON RENAL DIALYSIS (8) Obesity Code(s): E66.9 - OBESITY, UNSPECIFIED Qualifiers: Obesity severity: morbid (9) Anemia Code(s): D64.9 - ANEMIA, UNSPECIFIED (10) Hyponatremia Code(s): E87.1 - HYPO-OSMOLALITY AND HYPONATREMIA (11) UTI (urinary tract infection) Code(s): N39.0 - URINARY TRACT INFECTION, SITE NOT SPECIFIED Assessment/Plan (1) SOB -stable -continue current management -steroid taper per pulmonary (2) Hip fracture Assessment/Plan: -appreciate ID and ortho assistance -s/p I&D -wound vac placed and patient feeling better Code(s): S72.009A - FRACTURE OF UNSP PART OF NECK OF UNSP FEMUR, INIT Qualifiers: Encounter type: initial encounter Fracture type: closed Laterality : right Qualified Code(s): S72.001A - Fracture of unspecified part of neck of right femur, initial encounter for closed fracture (3) (HFpEF) heart failure with preserved ejection fraction Assessment/Plan: -continue oral lasix -HD MWF Code(s): I50.9 - HEART FAILURE, UNSPECIFIED (4) Bilateral leg edema Assessment/Plan: -stable Code(s): R60.0 - LOCALIZED EDEMA (5) Diabetes Assessment/Plan: -needs tight glucose control -changed morning levemir to 20 units, however held completely today -maintain evening levemir at 10 units -again spoke with the nurse about not holding the morning levemir Code(s): E11.9 - TYPE 2 DIABETES MELLITUS WITHOUT COMPLICATIONS (6) HTN (hypertension) Assessment/Plan: -well controlled -continue lasix Code(s): I10 - ESSENTIAL (PRIMARY) HYPERTENSION (7) Hyperkalemia Assessment/Plan: -resolved with HD Code(s): E87.5 - HYPERKALEMIA (8) End stage renal failure on dialysis Assessment/Plan: -continue HD per nephrology Code(s): N18.6 - END STAGE RENAL DISEASE Z99.2 - DEPENDENCE ON RENAL DIALYSIS (9) Obesity Code(s): E66.9 - OBESITY, UNSPECIFIED Qualifiers: Obesity severity: morbid (10) Hyponatremia -enforced fluid restriction -patient is trying to liberalize fluid intake again (11) Sepsis -wound cultures polymicrobial -continue antibiotics per ID -will need long course (12) Anemia -secondary to renal function -continue epo per nephrology -s/p transfusion (13) Sacral decubitus ulcer -wound care consulted and appreciate assistance -joaquinae to wounds
--- NOTE | 2016-08-17 13:54 | PN ---
Progress Note (short form) - Note Progress Note: Ortho Pt is in dialysis s/p right IM gamma nail with non-healing proximal wound, s/p I &D with VAC placement Selected Entries 08/17/16 08/17/16 09:00 13:32 Temperature 97.8 F Pulse Rate 100 H Respiratory 21 Rate Blood Pressure 118/60 Laboratory Tests 08/17/16 06:20 WBC 17.2 H Hgb 10.7 Hct 33.4 Plt Count [address], wound looks better, decr erythema a/p VAC dressing ABX as per ID Pt if able will follow d/c planning
[2016-08-17] MEDS: ATORVASTATIN CA 10 MG TABLET (FP) PO SCH (21:00)
[2016-08-17] MEDS ORDERED: ALBUTEROL SO4 2.5/IPRATROPIUM 0.5 INH SOL 3 ML VIAL.NEB. NEB ONE (22:30)
[2016-08-18] MEDS: PIPERACILLIN/TAZOB 2.25 GM 50 ML IVPB SCH ×3 (03:09→18:18)
[2016-08-18] MEDS: INSULIN SLIDING SCALE (NOVOLOG) 1 VIAL SQ SCH ×4 (06:10→22:04)
[2016-08-18 08:17] LABS: BASOPHIL 0.3 % (0-2.0); EOSINOPHIL 0.6 % (0-4.5); MCH 32.7 pg (25.7-33.7); MCHC 32.6 g/dl (32.0-36.0); MEAN CELL VOLUME 100.4 fl (80-96); MEAN PLT VOLUME 9.2 fl (7.5-11.1); NEUTROPHILS 85.1 % (42.8-82.8); PLATELET COUNT 199 K/MM3 (134-434); RDW 17.2 % (11.6-15.6); WHITE BLOOD COUNT 18.2 K/mm3 (4.0-10.0)
[2016-08-18 08:37] LABS: CREATININE 2.9 mg/dL (0.55-1.02); MAGNESIUM 1.7 mg/dL (1.8-2.4); PHOSPHOROUS 3.2 mg/dL (2.5-4.9)
--- NOTE | 2016-08-18 10:14 | PN ---
Progress Note (short form) - Note Progress Note: s: no cp palps dizzy sob; still with cough, chronic per pt o: Vital Signs Period Temp Pulse Resp BP Sys/Adams Pulse Ox Last 24 Hr 97.5 F-97.9 F 84-109 18-21 101-139/53-76 97-99 NAD. calm JVD difficult to assess due to neck habitus, but does not appear elevated RRR nl S1 S2. No S3, S4 or mrg scattered exp wheeze,nl eff + BS, soft, obese, ND, NT Venous stasis changes with trace LE edema No jaundice, no diaphoresis. aaox3 Current Medications Generic Name Dose Route Start Last Admin Trade Name Freq PRN Reason Stop Dose Admin Acetaminophen 650 mg 07/10/16 16:54 08/17/16 07:48 Tylenol - PO 650 mg Q4H PRN Administration FEVER OR PAIN Atorvastatin Calcium 10 mg 07/10/16 22:00 08/17/16 21:00 Lipitor - PO 10 mg HS DREW Administration Cholecalciferol 1,000 unit 07/12/16 17:00 08/17/16 09:59 Vitamin D3 - PO 1,000 unit DAILY DREW Administration Docusate Sodium 100 mg 07/10/16 22:00 08/17/16 21:00 Colace - PO 100 mg BID DREW Administration Furosemide 80 mg 07/12/16 17:00 08/17/16 09:59 Lasix - PO 80 mg DAILY DREW Administration Piperacillin Sod/Tazobactam Sod 50 mls @ 100 mls/hr 08/16/16 18:00 08/18/16 03: 09 Zosyn 2.25gm Ivpb (Pre-Docked) IVPB 100 mls/hr Q8H-IV DREW Administration Protocol Insulin Aspart 1 vial 07/10/16 22:00 08/18/16 06:10 Novolog Vial Sliding Scale - SQ Not Given ACHS DREW Protocol Insulin Detemir 20 units 08/18/16 08:00 Levemir Vial SQ AM DREW Insulin Detemir 10 units 08/18/16 22:00 Levemir Vial SQ HS DREW Loratadine 10 mg 07/10/16 16:54 Claritin - PO DAILY PRN allergy Multivit/Ca Carb/B Cmplx/FA/Prenat 1 tablet 07/24/16 10:00 08/17/16 09:59 Nephro-Annie - PO 1 tablet DAILY DREW Administration Nystatin 1 applic 07/24/16 22:00 08/17/16 20:59 Mycostatin Cream - TP 1 applic BID DREW Administration Ondansetron HCl 4 mg 07/10/16 16:54 07/31/16 23:13 Zofran Injection IVPB 4 mg Q6H PRN Administration NAUSEA Oxycodone HCl 5 mg 08/16/16 16:34 08/17/16 07:48 Roxicodone - PO 5 mg Q4H PRN Administration PAIN Oxycodone HCl 10 mg 08/16/16 16:34 08/17/16 20:50 Roxicodone - PO 10 mg Q4H PRN Administration PAIN Polyethylene Glycol 17 gm 07/18/16 10:00 08/17/16 21:00 Miralax (For Daily Use) - PO Not Given BID DREW Prednisone 20 mg 08/16/16 10:00 08/17/16 09:59 Deltasone - PO 08/19/16 10:01 20 mg DAILY DERW Administration Silver Sulfadiazine 1 applic 08/09/16 10:00 08/17/16 10:01 Silvadene - TP 1 applic DAILY DREW Administration CBC, BMP 08/18/16 07:20 08/18/16 07:20 echo 08/2015: nl lv/rv. mild lae. valves wnl. no rvsp. echo 08/2016: tds, mild conc lvh, nl lvef, nl rv, mild-mod as, mac, mild tr, mild pr, rvsp 30-40 A/p: 85 yo with CAD s/p AZUL to RCA '14, Afib on eliquis, dCHF, HTN, HL, IDDM, GEORGE declines CPAP and CKD on HD who presents s/p fall c/b hip fracture. CAD s/p AZUL to RCA in 03/2014 - on statin. not on ASA b/c of hi risk gib and on AC. - remains stable, no anginal symptoms, nl lvef Afib - off AV alexandr blockade due to prior bradycardia (AT/AFL with slow conduction). - rate here is overall controlled - AC with eliquis (details of decision in prior notes). Held for a few days for NGT placement and in setting of ileus/NPO, then resumed. Held again in setting of surgical site infection now s/p i+d with wound vac. Resume AC when ok by surgery and no further interventions planned. chronic HFPEF, chronic venous insuff: - appears euvolemic with edema much better than usual and she always has baseline tachypnea which is unchanged at present; - continued volume mgm't with HD per renal. - + chronic wheezes/cough, does not appear to be 2/2 pulmonary edema. HTN - stable off meds here ESRD on HD/hyperkalemia/hyponatremia - volume mgm't with HD and po lasix per renal. GEORGE on CPAP - stable sepsis, uti, bacteremia, surg site infection: - mgm't per pmd, id, surg. - has wound vac now s/p right IM gamma nail, right distal humerus fx - mgm't per surgery, pmd
[2016-08-18] MEDS ORDERED: INSULIN (NOVOLOG) ASPART 100 UNITS/ML 10ML VIAL ONE ×4 (10:27→22:33)
[2016-08-18] MEDS: INSULIN DETEMIR 100 UNITS/ML MDV SQ SCH (10:46)
[2016-08-18] MEDS: FUROSEMIDE 40 MG TABLET (FP) PO SCH (10:47)
[2016-08-18] MEDS: DOCUSATE SODIUM 100 MG CAPSULE (FP) PO SCH ×2 (10:47→21:58)
[2016-08-18] MEDS: predniSONE 20 MG TABLET (UD) PO SCH (10:47)
[2016-08-18] MEDS: VITAMIN B COMP W-C 1 EA TABLET PO SCH (10:48)
[2016-08-18] MEDS: POLYETHYLENE GLYCOL 3350 119 GM BTL PO SCH ×2 (10:48→21:59)
[2016-08-18] MEDS: NYSTATIN 100,000 UNIT/GM TOPICAL CREAM 15 GM TUBE TP SCH ×2 (10:48→22:01)
[2016-08-18] MEDS: CHOLECALCIFEROL (VITAMIN D3) 1,000 UNIT TABLET (FP) PO SCH (10:48)
[2016-08-18] MEDS: SILVER SULFADIAZINE 1% TOP CREAM 50 GM JAR TP SCH (10:49)
--- NOTE | 2016-08-18 10:58 | PN ---
Progress Note, Physician Chief Complaint: Ms Mcdonnell says she is tired today. No cp, sob, n/v. - Current Medication List Current Medications: Active Medications Acetaminophen (Tylenol -) 650 mg PO Q4H PRN PRN Reason: FEVER OR PAIN Last Admin: 08/17/16 07:48 Dose: 650 mg Atorvastatin Calcium (Lipitor -) 10 mg PO HS [facility] Last Admin: 08/17/16 21:00 Dose: 10 mg Cholecalciferol (Vitamin D3 -) 1,000 unit PO DAILY [facility] Last Admin: 08/18/16 10:48 Dose: 1,000 unit Docusate Sodium (Colace -) 100 mg PO BID [facility] Last Admin: 08/18/16 10:47 Dose: 100 mg Furosemide (Lasix -) 80 mg PO DAILY [facility] Last Admin: 08/18/16 10:47 Dose: 80 mg Piperacillin Sod/Tazobactam Sod (Zosyn 2.25gm Ivpb (Pre-Docked)) 50 mls @ 100 mls/hr IVPB Q8H-IV [facility] PRN Reason: Protocol Last Admin: 08/18/16 10:47 Dose: 100 mls/hr Insulin Aspart (Novolog Vial Sliding Scale -) 1 vial SQ ACHS [facility] PRN Reason: Protocol Last Admin: 08/18/16 10:46 Dose: 7 units Insulin Detemir (Levemir Vial) 20 units SQ AM [facility] Last Admin: 08/18/16 10:46 Dose: 20 unit Insulin Detemir (Levemir Vial) 10 units SQ HS [facility] Loratadine (Claritin -) 10 mg PO DAILY PRN PRN Reason: allergy Multivit/Ca Carb/B Cmplx/FA/Prenat (Nephro-Annie -) 1 tablet PO DAILY [facility] Last Admin: 08/18/16 10:48 Dose: 1 tablet Nystatin (Mycostatin Cream -) 1 applic TP BID [facility] Last Admin: 08/18/16 10:48 Dose: 1 applic Ondansetron HCl (Zofran Injection) 4 mg IVPB Q6H PRN PRN Reason: NAUSEA Last Admin: 07/31/16 23:13 Dose: 4 mg Oxycodone HCl (Roxicodone -) 5 mg PO Q4H PRN PRN Reason: PAIN Last Admin: 08/17/16 07:48 Dose: 5 mg Oxycodone HCl (Roxicodone -) 10 mg PO Q4H PRN PRN Reason: PAIN Last Admin: 08/17/16 20:50 Dose: 10 mg Polyethylene Glycol (Miralax (For Daily Use) -) 17 gm PO BID [facility] Last Admin: 08/18/16 10:48 Dose: Not Given Prednisone (Deltasone -) 20 mg PO DAILY [facility] Stop: 08/19/16 10:01 Last Admin: 08/18/16 10:47 Dose: 20 mg Silver Sulfadiazine (Silvadene -) 1 applic TP DAILY [facility] Last Admin: 08/18/16 10:49 Dose: 1 applic - Objective Vital Signs: Vital Signs Temperature 97.9 F 08/18/16 06:00 Pulse Rate 84 08/18/16 09:35 Respiratory Rate 20 08/18/16 06:00 Blood Pressure 101/53 08/18/16 06:00 O2 Sat by Pulse Oximetry (%) 99 08/18/16 09:35 Constitutional: Yes: No Distress, Calm, Obese Cardiovascular: Yes: Regular Rate and Rhythm. No: Gallop, Murmur, Rub Respiratory: Yes: Regular, CTA Bilaterally. No: Rales, Rhonchi, Wheezes Gastrointestinal: Yes: Normal Bowel Sounds, Soft. No: Distention, Tenderness Extremities: Yes: WNL Edema: Yes Edema: LLE: 1+, RLE: 1+ Labs: CBC, BMP 08/18/16 07:20 08/18/16 07:20 INR, PTT INR 1.18 (0.82-1.09) H 07/10/16 07:40 Problem List - Problems (1) Hip fracture Code(s): S72.009A - FRACTURE OF UNSP PART OF NECK OF UNSP FEMUR, INIT Qualifiers: Encounter type: initial encounter Fracture type: closed Laterality : right Qualified Code(s): S72.001A - Fracture of unspecified part of neck of right femur, initial encounter for closed fracture (2) (HFpEF) heart failure with preserved ejection fraction Code(s): I50.9 - HEART FAILURE, UNSPECIFIED (3) Bilateral leg edema Code(s): R60.0 - LOCALIZED EDEMA (4) Diabetes Code(s): E11.9 - TYPE 2 DIABETES MELLITUS WITHOUT COMPLICATIONS (5) HTN (hypertension) Code(s): I10 - ESSENTIAL (PRIMARY) HYPERTENSION (6) Hyperkalemia Code(s): E87.5 - HYPERKALEMIA (7) End stage renal failure on dialysis Code(s): N18.6 - END STAGE RENAL DISEASE Z99.2 - DEPENDENCE ON RENAL DIALYSIS (8) Obesity Code(s): E66.9 - OBESITY, UNSPECIFIED Qualifiers: Obesity severity: morbid (9) Anemia Code(s): D64.9 - ANEMIA, UNSPECIFIED (10) Hyponatremia Code(s): E87.1 - HYPO-OSMOLALITY AND HYPONATREMIA (11) UTI (urinary tract infection) Code(s): N39.0 - URINARY TRACT INFECTION, SITE NOT SPECIFIED Assessment/Plan (1) SOB -stable -continue current management -steroid taper per pulmonary (2) Hip fracture Assessment/Plan: -appreciate ID and ortho assistance -s/p I&D -wound vac placed and patient feeling better Code(s): S72.009A - FRACTURE OF UNSP PART OF NECK OF UNSP FEMUR, INIT Qualifiers: Encounter type: initial encounter Fracture type: closed Laterality : right Qualified Code(s): S72.001A - Fracture of unspecified part of neck of right femur, initial encounter for closed fracture (3) (HFpEF) heart failure with preserved ejection fraction Assessment/Plan: -continue oral lasix -HD MWF Code(s): I50.9 - HEART FAILURE, UNSPECIFIED (4) Bilateral leg edema Assessment/Plan: -stable Code(s): R60.0 - LOCALIZED EDEMA (5) Diabetes Assessment/Plan: -needs tight glucose control -changed morning levemir to 20 units, now to be given at 0800 -maintain evening levemir at 10 units at 2000 Code(s): E11.9 - TYPE 2 DIABETES MELLITUS WITHOUT COMPLICATIONS (6) HTN (hypertension) Assessment/Plan: -well controlled -continue lasix Code(s): I10 - ESSENTIAL (PRIMARY) HYPERTENSION (7) Hyperkalemia Assessment/Plan: -resolved with HD Code(s): E87.5 - HYPERKALEMIA (8) End stage renal failure on dialysis Assessment/Plan: -continue HD per nephrology Code(s): N18.6 - END STAGE RENAL DISEASE Z99.2 - DEPENDENCE ON RENAL DIALYSIS (9) Obesity Code(s): E66.9 - OBESITY, UNSPECIFIED Qualifiers: Obesity severity: morbid (10) Hyponatremia -enforced fluid restriction -patient is trying to liberalize fluid intake again (11) Sepsis -wound cultures polymicrobial -continue antibiotics per ID -will need long course (12) Anemia -secondary to renal function -continue epo per nephrology -s/p transfusion (13) Sacral decubitus ulcer -wound care consulted and appreciate assistance -silvadene to wounds
--- NOTE | 2016-08-18 10:58 | PN ---
Progress Note, Physician Chief Complaint: The patient in bed. awake, alert. No new complaint. No chest pain. Still feels congested. IV antibiotics well tolerated. History of Present Illness: Mostly in bed lately. Has Enterococcus sepsis. - Current Medication List Current Medications: Active Medications Acetaminophen (Tylenol -) 650 mg PO Q4H PRN PRN Reason: FEVER OR PAIN Last Admin: 08/17/16 07:48 Dose: 650 mg Atorvastatin Calcium (Lipitor -) 10 mg PO HS [facility] Last Admin: 08/17/16 21:00 Dose: 10 mg Cholecalciferol (Vitamin D3 -) 1,000 unit PO DAILY [facility] Last Admin: 08/18/16 10:48 Dose: 1,000 unit Docusate Sodium (Colace -) 100 mg PO BID [facility] Last Admin: 08/18/16 10:47 Dose: 100 mg Furosemide (Lasix -) 80 mg PO DAILY [facility] Last Admin: 08/18/16 10:47 Dose: 80 mg Piperacillin Sod/Tazobactam Sod (Zosyn 2.25gm Ivpb (Pre-Docked)) 50 mls @ 100 mls/hr IVPB Q8H-IV [facility] PRN Reason: Protocol Last Admin: 08/18/16 10:47 Dose: 100 mls/hr Insulin Aspart (Novolog Vial Sliding Scale -) 1 vial SQ ACHS [facility] PRN Reason: Protocol Last Admin: 08/18/16 10:46 Dose: 7 units Insulin Detemir (Levemir Vial) 20 units SQ AM [facility] Last Admin: 08/18/16 10:46 Dose: 20 unit Insulin Detemir (Levemir Vial) 10 units SQ HS [facility] Loratadine (Claritin -) 10 mg PO DAILY PRN PRN Reason: allergy Multivit/Ca Carb/B Cmplx/FA/Prenat (Nephro-Annie -) 1 tablet PO DAILY [facility] Last Admin: 08/18/16 10:48 Dose: 1 tablet Nystatin (Mycostatin Cream -) 1 applic TP BID [facility] Last Admin: 08/18/16 10:48 Dose: 1 applic Ondansetron HCl (Zofran Injection) 4 mg IVPB Q6H PRN PRN Reason: NAUSEA Last Admin: 07/31/16 23:13 Dose: 4 mg Oxycodone HCl (Roxicodone -) 5 mg PO Q4H PRN PRN Reason: PAIN Last Admin: 08/17/16 07:48 Dose: 5 mg Oxycodone HCl (Roxicodone -) 10 mg PO Q4H PRN PRN Reason: PAIN Last Admin: 08/17/16 20:50 Dose: 10 mg Polyethylene Glycol (Miralax (For Daily Use) -) 17 gm PO BID [facility] Last Admin: 08/18/16 10:48 Dose: Not Given Prednisone (Deltasone -) 20 mg PO DAILY [facility] Stop: 08/19/16 10:01 Last Admin: 08/18/16 10:47 Dose: 20 mg Silver Sulfadiazine (Silvadene -) 1 applic TP DAILY [facility] Last Admin: 08/18/16 10:49 Dose: 1 applic - Objective Vital Signs: Vital Signs Temperature 97.9 F 08/18/16 06:00 Pulse Rate 84 08/18/16 09:35 Respiratory Rate 20 08/18/16 06:00 Blood Pressure 101/53 08/18/16 06:00 O2 Sat by Pulse Oximetry (%) 99 08/18/16 09:35 Constitutional: Yes: Calm Eyes: Yes: Conjunctiva Clear HENT: Yes: Normocephalic Neck: Yes: Trachea Midline Cardiovascular: Yes: S1, S2 Respiratory: Yes: CTA Bilaterally, On Nasal O2, Rhonchi, SOB Gastrointestinal: Yes: Normal Bowel Sounds, Soft, Abdomen, Obese Extremities: Yes: Cool, Delayed Capillary Refill, Erythema Edema: LLE: Trace, RLE: Trace Wound/Incision: Yes: Well Approximated Labs: CBC, BMP 08/18/16 07:20 08/18/16 07:20 INR, PTT INR 1.18 (0.82-1.09) H 07/10/16 07:40 Problem List - Problems (1) Hip fracture Code(s): S72.009A - FRACTURE OF UNSP PART OF NECK OF UNSP FEMUR, INIT Qualifiers: Encounter type: initial encounter Fracture type: closed Laterality : right Qualified Code(s): S72.001A - Fracture of unspecified part of neck of right femur, initial encounter for closed fracture (2) [id number] kidney injury Code(s): N17.9 - ACUTE KIDNEY FAILURE, UNSPECIFIED N18.9 - CHRONIC KIDNEY DISEASE, UNSPECIFIED (3) Afib Code(s): I48.91 - UNSPECIFIED ATRIAL FIBRILLATION (4) Anemia Code(s): D64.9 - ANEMIA, UNSPECIFIED (5) CKD (chronic kidney disease) Code(s): N18.9 - CHRONIC KIDNEY DISEASE, UNSPECIFIED (6) Coronary arteriosclerosis Code(s): I25.10 - ATHSCL HEART DISEASE OF [place] CORONARY ARTERY W/O ANG PCTRS (7) Diabetes Code(s): E11.9 - TYPE 2 DIABETES MELLITUS WITHOUT COMPLICATIONS (8) Edema Code(s): R60.9 - EDEMA, UNSPECIFIED (9) End stage renal failure on dialysis Code(s): N18.6 - END STAGE RENAL DISEASE Z99.2 - DEPENDENCE ON RENAL DIALYSIS (10) Obesity Code(s): E66.9 - OBESITY, UNSPECIFIED Qualifiers: Obesity severity: morbid (11) Bacteremia Code(s): R78.81 - BACTEREMIA Assessment/Plan Patient with ESRD, on HFD admitted with traumatic Fx of the right hip and right humerus. S/p ORIF right hip S/p Enterococcus sepsis. For next HD in AM. IV antibiotics to continue. Radha Hearn MD
[2016-08-18] MEDS: oxyCODONE HCL 5 MG TABLET PO PRN ×2 (15:14→21:58)
[2016-08-18] MEDS: ACETAMINOPHEN 325 MG TABLET (FP) PO PRN (15:15)
[2016-08-18] MEDS: HEPARIN NA (PORCINE) 5,000 UNITS/ML 1ML VIAL SQ SCH (20:34)
[2016-08-18] MEDS: ATORVASTATIN CA 10 MG TABLET (FP) PO SCH (21:58)
[2016-08-18] MEDS ORDERED: INSULIN DETEMIR 100 UNITS/ML MDV SQ SCH (22:00)
[2016-08-18] MEDS ORDERED: INSULIN DETEMIR 100 UNITS/ML MDV SQ ONE (22:11)
[2016-08-18] MEDS ORDERED: INSULIN (NOVOLOG) ASPART 100 UNITS/ML 10ML VIAL SQ ONE ×2 (22:30)
[2016-08-19] MEDS: PIPERACILLIN/TAZOB 2.25 GM 50 ML IVPB SCH ×4 (01:46→17:33)
[2016-08-19] MEDS: HEPARIN NA (PORCINE) 5,000 UNITS/ML 1ML VIAL SQ SCH ×2 (06:06→14:07)
[2016-08-19] MEDS: oxyCODONE HCL 5 MG TABLET PO PRN ×2 (06:06→14:21)
[2016-08-19] MEDS: INSULIN SLIDING SCALE (NOVOLOG) 1 VIAL SQ SCH ×3 (06:08→17:39)
[2016-08-19] MEDS: INSULIN DETEMIR 100 UNITS/ML MDV SQ SCH (06:36)
--- NOTE | 2016-08-19 08:55 | PN ---
Progress Note (short form) - Note Progress Note: Ortho Pt is in dialysis s/p right IM gamma nail with non-healing proximal wound, s/p I &D with VAC placement Selected Entries 08/19/16 06:22 Temperature 97.6 F Pulse Rate 103 H Respiratory 18 Rate Blood Pressure 120/[address], wound looks better, decr erythema a/p VAC dressing change today ABX as per ID Pt if able will follow d/c planning
[2016-08-19] MEDS ORDERED: EPOETIN ALFA 20,000 UNIT/1 ML VIAL IVPUSH ONE (09:00)
[2016-08-19] MEDS: NYSTATIN 100,000 UNIT/GM TOPICAL CREAM 15 GM TUBE TP SCH (09:34)
[2016-08-19] MEDS: VITAMIN B COMP W-C 1 EA TABLET PO SCH ×2 (09:34→14:20)
[2016-08-19] MEDS: FUROSEMIDE 40 MG TABLET (FP) PO SCH ×2 (09:34→14:20)
[2016-08-19] MEDS: predniSONE 20 MG TABLET (UD) PO SCH (09:34)
[2016-08-19] MEDS: POLYETHYLENE GLYCOL 3350 119 GM BTL PO SCH (09:34)
[2016-08-19] MEDS: DOCUSATE SODIUM 100 MG CAPSULE (FP) PO SCH (09:34)
[2016-08-19] MEDS: CHOLECALCIFEROL (VITAMIN D3) 1,000 UNIT TABLET (FP) PO SCH ×2 (09:35→14:20)
[2016-08-19] MEDS: SILVER SULFADIAZINE 1% TOP CREAM 50 GM JAR TP SCH ×2 (09:35→14:30)
[2016-08-19 10:02] LABS: BASOPHIL 0.1 % (0-2.0); EOSINOPHIL 0.8 % (0-4.5); MCH 32.7 pg (25.7-33.7); MCHC 32.8 g/dl (32.0-36.0); MEAN CELL VOLUME 99.8 fl (80-96); MEAN PLT VOLUME 9.4 fl (7.5-11.1); NEUTROPHILS 84.1 % (42.8-82.8); PLATELET COUNT 204 K/MM3 (134-434); RDW 17.4 % (11.6-15.6); WHITE BLOOD COUNT 13.8 K/mm3 (4.0-10.0)
[2016-08-19 10:14] LABS: CREATININE 3.6 mg/dL (0.55-1.02); MAGNESIUM 1.8 mg/dL (1.8-2.4); PHOSPHOROUS 3.8 mg/dL (2.5-4.9)
[2016-08-19 10:27] VITALS: TEMP 97.4
--- NOTE | 2016-08-19 12:07 | PN ---
Progress Note, Physician Chief Complaint: chf History of Present Illness: no sob, PND no cp, palpit, leg swelling - Current Medication List Current Medications: Active Medications Acetaminophen (Tylenol -) 650 mg PO Q4H PRN PRN Reason: FEVER OR PAIN Last Admin: 08/18/16 15:15 Dose: 650 mg Atorvastatin Calcium (Lipitor -) 10 mg PO HS [facility] Last Admin: 08/18/16 21:58 Dose: 10 mg Cholecalciferol (Vitamin D3 -) 1,000 unit PO DAILY [facility] Last Admin: 08/19/16 09:35 Dose: Not Given Docusate Sodium (Colace -) 100 mg PO BID [facility] Last Admin: 08/19/16 09:34 Dose: Not Given Furosemide (Lasix -) 80 mg PO DAILY [facility] Last Admin: 08/19/16 09:34 Dose: Not Given Heparin Sodium (Porcine) (Heparin -) 5,000 unit SQ TID [facility] Last Admin: 08/19/16 06:06 Dose: 5,000 unit Piperacillin Sod/Tazobactam Sod (Zosyn 2.25gm Ivpb (Pre-Docked)) 50 mls @ 100 mls/hr IVPB Q8H-IV [facility] PRN Reason: Protocol Last Admin: 08/19/16 09:35 Dose: Not Given Insulin Aspart (Novolog Vial Sliding Scale -) 1 vial SQ ACHS [facility] PRN Reason: Protocol Last Admin: 08/19/16 11:17 Dose: Not Given Insulin Detemir (Levemir Vial) 20 units SQ AM [facility] Last Admin: 08/19/16 06:36 Dose: 20 unit Insulin Detemir (Levemir Vial) 10 units SQ HS [facility] Last Admin: 08/18/16 21:58 Dose: 10 units Loratadine (Claritin -) 10 mg PO DAILY PRN PRN Reason: allergy Multivit/Ca Carb/B Cmplx/FA/Prenat (Nephro-Annie -) 1 tablet PO DAILY [facility] Last Admin: 08/19/16 09:34 Dose: Not Given Nystatin (Mycostatin Cream -) 1 applic TP BID [facility] Last Admin: 08/19/16 09:34 Dose: Not Given Ondansetron HCl (Zofran Injection) 4 mg IVPB Q6H PRN PRN Reason: NAUSEA Last Admin: 07/31/16 23:13 Dose: 4 mg Oxycodone HCl (Roxicodone -) 5 mg PO Q4H PRN PRN Reason: PAIN Last Admin: 08/18/16 15:14 Dose: 5 mg Oxycodone HCl (Roxicodone -) 10 mg PO Q4H PRN PRN Reason: PAIN Last Admin: 08/19/16 06:06 Dose: 10 mg Polyethylene Glycol (Miralax (For Daily Use) -) 17 gm PO BID [facility] Last Admin: 08/19/16 09:34 Dose: Not Given Silver Sulfadiazine (Silvadene -) 1 applic TP DAILY [facility] Last Admin: 08/19/16 09:35 Dose: Not Given - Objective Vital Signs: Vital Signs Temperature 97.4 F L 08/19/16 09:10 Pulse Rate 78 08/19/16 11:45 Respiratory Rate 18 08/19/16 11:45 Blood Pressure 113/59 08/19/16 11:45 O2 Sat by Pulse Oximetry (%) 97 08/19/16 08:00 Constitutional: Yes: No Distress, Calm, Obese Cardiovascular: Yes: Regular Rate and Rhythm, S1, S2. No: JVD, Gallop, Murmur Respiratory: Yes: Regular, CTA Bilaterally (anteriorly (getting HD)). No: Accessory Muscle Use, Rales, Wheezes Extremities: No: Cold Edema: No Neurological: Yes: Alert, Oriented Psychiatric: No: Agitated Labs: CBC, BMP 08/19/16 09:20 08/19/16 09:20 INR, PTT INR 1.18 (0.82-1.09) H 07/10/16 07:40 Assessment/Plan echo 08/2016: tds, mild conc lvh, nl lvef, nl rv, mild-mod as, mac, mild tr, mild pr, rvsp 30-40 A/p: 85 yo with CAD s/p AZUL to RCA '14, Afib on eliquis, dCHF, HTN, HL, IDDM, GEORGE declines CPAP and CKD on HD who presents s/p fall c/b hip fracture. CAD s/p AZUL to RCA in 03/2014 - on statin. not on ASA b/c of hi risk gib and on AC. - remains stable, no anginal symptoms, nl lvef Afib - off AV alexandr blockade due to prior bradycardia (AT/AFL with slow conduction). - rate here is overall controlled - AC with eliquis (details of decision in prior notes). Held for a few days for NGT placement and in setting of ileus/NPO, then resumed. Held again in setting of surgical site infection now s/p i+d with wound vac. Resume AC when ok by surgery and no further interventions planned. chronic HFPEF, chronic venous insuff: - appears euvolemic with edema much better than usual and she always has baseline tachypnea which is unchanged at present; - + chronic wheezes/cough, does not appear to be 2/2 pulmonary edema--appears clinically euvolemic--suspect airways inflammation/post-bronchitis - - continued volume mgm't with HD per renal. HTN - stable off meds here ESRD on HD/hyperkalemia/hyponatremia - volume mgm't with HD and po lasix per renal. GEORGE on CPAP - stable sepsis, uti, bacteremia, surg site infection: - mgm't per pmd, id, surg. - has wound vac now s/p right IM gamma nail, right distal humerus fx - mgm't per surgery, pmd
--- NOTE | 2016-08-19 13:01 | PN ---
Progress Note (short form) - Note Progress Note: PULMONARY Denies shortness of breath or chest pain. c/o pain at wound vac site. Last Vital Signs Temp Pulse Resp BP Pulse Ox 97.4 F L 78 18 113/59 97 08/19/16 09:10 08/19/16 11:45 08/19/16 11:45 08/19/16 11:45 08/19/16 08:00 Gen: NAD at rest Heart: RRR Lung: decreased breath sounds at the bases Abd: soft, nontender Ext: + edema CBC, BMP 08/19/16 09:20 08/19/16 09:20 Active Medications Acetaminophen (Tylenol -) 650 mg PO Q4H PRN PRN Reason: FEVER OR PAIN Last Admin: 08/18/16 15:15 Dose: 650 mg Atorvastatin Calcium (Lipitor -) 10 mg PO HS [facility] Last Admin: 08/18/16 21:58 Dose: 10 mg Cholecalciferol (Vitamin D3 -) 1,000 unit PO DAILY [facility] Last Admin: 08/19/16 09:35 Dose: Not Given Docusate Sodium (Colace -) 100 mg PO BID [facility] Last Admin: 08/19/16 09:34 Dose: Not Given Furosemide (Lasix -) 80 mg PO DAILY [facility] Last Admin: 08/19/16 09:34 Dose: Not Given Heparin Sodium (Porcine) (Heparin -) 5,000 unit SQ TID [facility] Last Admin: 08/19/16 06:06 Dose: 5,000 unit Piperacillin Sod/Tazobactam Sod (Zosyn 2.25gm Ivpb (Pre-Docked)) 50 mls @ 100 mls/hr IVPB Q8H-IV [facility] PRN Reason: Protocol Last Admin: 08/19/16 09:35 Dose: Not Given Insulin Aspart (Novolog Vial Sliding Scale -) 1 vial SQ ACHS [facility] PRN Reason: Protocol Last Admin: 08/19/16 11:17 Dose: Not Given Insulin Detemir (Levemir Vial) 20 units SQ AM [facility] Last Admin: 08/19/16 06:36 Dose: 20 unit Insulin Detemir (Levemir Vial) 10 units SQ HS [facility] Last Admin: 08/18/16 21:58 Dose: 10 units Loratadine (Claritin -) 10 mg PO DAILY PRN PRN Reason: allergy Multivit/Ca Carb/B Cmplx/FA/Prenat (Nephro-Annie -) 1 tablet PO DAILY [facility] Last Admin: 08/19/16 09:34 Dose: Not Given Nystatin (Mycostatin Cream -) 1 applic TP BID [facility] Last Admin: 08/19/16 09:34 Dose: Not Given Ondansetron HCl (Zofran Injection) 4 mg IVPB Q6H PRN PRN Reason: NAUSEA Last Admin: 07/31/16 23:13 Dose: 4 mg Oxycodone HCl (Roxicodone -) 5 mg PO Q4H PRN PRN Reason: PAIN Last Admin: 08/18/16 15:14 Dose: 5 mg Oxycodone HCl (Roxicodone -) 10 mg PO Q4H PRN PRN Reason: PAIN Last Admin: 08/19/16 06:06 Dose: 10 mg Polyethylene Glycol (Miralax (For Daily Use) -) 17 gm PO BID [facility] Last Admin: 08/19/16 09:34 Dose: Not Given Silver Sulfadiazine (Silvadene -) 1 applic TP DAILY [facility] Last Admin: 08/19/16 09:35 Dose: Not Given A/P ESBL E Coli Bacteremia Acute COPD Exacerbation resolving ESRD on HD Morbid Obesity GEORGE Atrial Fibrillation HTN DM - taper off prednisone - inhaled bronchodilators - continue antibiotics - aspiration precautions - HD per renal - rate control - resume anticoagulation when stable
[2016-08-19] MEDS: ACETAMINOPHEN 325 MG TABLET (FP) PO PRN (14:20)
--- NOTE | 2016-08-19 14:27 | DS ---
Physical Examination Vital Signs: Vital Signs Temperature 97.4 F L 08/19/16 09:10 Pulse Rate 80 08/19/16 12:45 Respiratory Rate 18 08/19/16 12:45 Blood Pressure 118/57 08/19/16 12:45 O2 Sat by Pulse Oximetry (%) 97 08/19/16 08:00 Constitutional: Yes: No Distress, Calm, Obese Cardiovascular: Yes: Pulse Irregular. No: Tachycardia, Gallop, Murmur, Rub Gastrointestinal: Yes: Normal Bowel Sounds, Soft. No: Distention, Tenderness Extremities: Yes: WNL Edema: Yes Edema: LLE: 1+, RLE: 1+ Labs: CBC, BMP 08/19/16 09:20 08/19/16 09:20 Discharge Summary Reason For Visit: FRACTURE OF HIP Current Active Problems Bacteremia (Acute) Constipation due to opioid therapy (Acute) Gastric distention (Acute) Gastric outlet obstruction (Acute) Hip fracture (Acute) UTI (urinary tract infection) (Acute) Ulcer (Acute) Hospital Course: (1) Hip fracture Code(s): S72.009A - FRACTURE OF UNSP PART OF NECK OF UNSP FEMUR, INIT Qualifiers: Encounter type: initial encounter Fracture type: closed Laterality : right Qualified Code(s): S72.001A - Fracture of unspecified part of neck of right femur, initial encounter for closed fracture (2) (HFpEF) heart failure with preserved ejection fraction Code(s): I50.9 - HEART FAILURE, UNSPECIFIED (3) Bilateral leg edema Code(s): R60.0 - LOCALIZED EDEMA (4) Diabetes Code(s): E11.9 - TYPE 2 DIABETES MELLITUS WITHOUT COMPLICATIONS (5) HTN (hypertension) Code(s): I10 - ESSENTIAL (PRIMARY) HYPERTENSION (6) Hyperkalemia Code(s): E87.5 - HYPERKALEMIA (7) End stage renal failure on dialysis Code(s): N18.6 - END STAGE RENAL DISEASE Z99.2 - DEPENDENCE ON RENAL DIALYSIS (8) Obesity Code(s): E66.9 - OBESITY, UNSPECIFIED Qualifiers: Obesity severity: morbid (9) Anemia Code(s): D64.9 - ANEMIA, UNSPECIFIED (10) Hyponatremia Code(s): E87.1 - HYPO-OSMOLALITY AND HYPONATREMIA (11) UTI (urinary tract infection) Code(s): N39.0 - URINARY TRACT INFECTION, SITE NOT SPECIFIED Mrs Mcdonnell is an 85 year old female who presented to the hospital after a mechanical fall with a right hip fracture. She was seen by cardiology and risk stratified, she was seen by ortho and underwent repair. After the surgery she was found to have a UTI, this was sensitive to rocephin and she finished the course. However she developed another UTI and also a wound infection. ID was brought on board and she was treated with broad spectrum antibiotics. She then had bacteremia, which cleared, but then recurred after she had another UTI. Her wound did not improve and it required repeat surgery for cleaning and wound vac. She developed an ileus while here, this resolved. She currently is stable and will need halfway antibiotics as an outpatient. 35 minutes spent in preparation of this discharge Condition: Stable - Instructions Diet, Activity, Other Instructions: diabetic diet. Up with assistance, further activity per PT at SNF. Will need 5 weeks antibiotics. Referrals: Ashish Collazo MD [Primary Care Provider] - Abraham Oh MD [Staff Physician] - Massimo Melissa MD [Staff Physician] - Micheal Resendez MD [Staff Physician] - Ashish Allen MD [Staff Physician] - Disposition: HALF-WAY FACILITY - Home Medications Comprehensive Discharge Medication List: Ambulatory Orders Atorvastatin Calcium [Lipitor] 10 mg PO HS 08/25/12 Cholecalciferol (Vitamin D3) [Vitamin D] 1,000 unit PO DAILY 08/25/12 Iron 28 mg PO Q2D 08/14/15 Loratadine [Claritin -] 10 mg PO DAILY PRN 08/14/15 Aspirin [Ecotrin] 81 mg PO DAILY 07/09/16 Furosemide [Lasix] 80 mg PO DAILY 07/09/16 Acetaminophen [Tylenol .Regular Strength -] 650 mg PO Q4H PRN #0 tablet Apixaban [Eliquis] 2.5 mg PO BID #60 tablet 08/19/16 Docusate Sodium [Colace -] 100 mg PO BID 08/19/16 Insulin (Levemir) [Levemir Vial] 10 units SQ HS ml 08/19/16 Insulin (Levemir) [Levemir Vial] 20 units SQ AM ml 08/19/16 Insulin Sliding Scale [Novolog Vial Sliding Scale -] 1 vial SQ ACHS units 08/19 Nystatin Cream [Mycostatin Cream -] 1 applic TP BID applic 08/19/16 Oxycodone HCl [Roxicodone -] 5 mg PO Q4H PRN #0 tablet MDD 60mg 08/19/16 Oxycodone HCl [Roxicodone -] 10 mg PO Q4H PRN #0 tablet MDD 60mg 08/19/16 Piperacillin/Tazob 2.25 gm [Zosyn 2.25GM Ivpb (Pre-Docked)] 50 ml IVPB Q8H-IV bag 08/19/16 Polyethylene Glycol 3350 [Miralax 119 gm Btl -] 17 gm PO BID bottle 08/19/16 Prednisone [Deltasone -] 20 mg PO DAILY tablet 08/19/16 Silver Sulfadiazine 1% Top Cr [Silvadene -] 1 applic TP DAILY jar 08/19/16 Vancomycin 1 Gram (Pre-Docked) [Vancomycin (Pre-Docked)] 1,000 mg IVPB [id number] 35 Days 08/19/16 Vitamin B Comp W-C [Nephro-Annie -] 1 tablet PO DAILY tablet 08/19/16
--- NOTE | 2016-08-19 14:37 | PN ---
Progress Note (short form) - Note Progress Note: Renal Follow up for ESRD on HD Pt seen and examined during dialysis BP stable, goal UF is 2.5L access with good function pt without any acute complaints Vital Signs Temperature 97.4 F L 08/19/16 09:10 Pulse Rate 80 08/19/16 12:45 Respiratory Rate 18 08/19/16 12:45 Blood Pressure 118/57 08/19/16 12:45 O2 Sat by Pulse Oximetry (%) 97 08/19/16 08:00 Intake & Output 08/16/16 08/17/16 08/18/16 08/19/16 22:59 22:59 23:59 23:59 Intake Total Output Total Balance Weight 179 lb 1 oz Gen: NAD, awake and alert CVS: irregular, no M/R Lungs: Dec BS Lung bases, no rales Abd: soft NT/ND Ext: Trace to 1+ edema in LE Access: Left ARM AVF CBC, BMP 08/19/16 09:20 08/19/16 09:20 Current Medications Acetaminophen (Tylenol -) 650 mg PO Q4H PRN PRN Reason: FEVER OR PAIN Last Admin: 08/19/16 14:20 Dose: 650 mg Atorvastatin Calcium (Lipitor -) 10 mg PO HS DREW Last Admin: 08/18/16 21:58 Dose: 10 mg Cholecalciferol (Vitamin D3 -) 1,000 unit PO DAILY DREW Last Admin: 08/19/16 14:20 Dose: 1,000 unit Docusate Sodium (Colace -) 100 mg PO BID DREW Last Admin: 08/19/16 09:34 Dose: Not Given Furosemide (Lasix -) 80 mg PO DAILY DREW Last Admin: 08/19/16 14:20 Dose: 80 mg Heparin Sodium (Porcine) (Heparin -) 5,000 unit SQ TID DREW Last Admin: 08/19/16 14:07 Dose: Not Given Piperacillin Sod/Tazobactam Sod (Zosyn 2.25gm Ivpb (Pre-Docked)) 50 mls @ 100 mls/hr IVPB Q8H-IV DREW PRN Reason: Protocol Last Admin: 08/19/16 14:19 Dose: 100 mls/hr Insulin Aspart (Novolog Vial Sliding Scale -) 1 vial SQ ACHS DREW PRN Reason: Protocol Last Admin: 08/19/16 11:17 Dose: Not Given Insulin Detemir (Levemir Vial) 20 units SQ AM [facility] Last Admin: 08/19/16 06:36 Dose: 20 unit Insulin Detemir (Levemir Vial) 10 units SQ HS [facility] Last Admin: 08/18/16 21:58 Dose: 10 units Loratadine (Claritin -) 10 mg PO DAILY PRN PRN Reason: allergy Multivit/Ca Carb/B Cmplx/FA/Prenat (Nephro-Annie -) 1 tablet PO DAILY [facility] Last Admin: 08/19/16 14:20 Dose: 1 tablet Nystatin (Mycostatin Cream -) 1 applic TP BID [facility] Last Admin: 08/19/16 09:34 Dose: Not Given Ondansetron HCl (Zofran Injection) 4 mg IVPB Q6H PRN PRN Reason: NAUSEA Last Admin: 07/31/16 23:13 Dose: 4 mg Oxycodone HCl (Roxicodone -) 5 mg PO Q4H PRN PRN Reason: PAIN Last Admin: 08/19/16 14:21 Dose: 5 mg Oxycodone HCl (Roxicodone -) 10 mg PO Q4H PRN PRN Reason: PAIN Last Admin: 08/19/16 06:06 Dose: 10 mg Polyethylene Glycol (Miralax (For Daily Use) -) 17 gm PO BID [facility] Last Admin: 08/19/16 09:34 Dose: Not Given Silver Sulfadiazine (Silvadene -) 1 applic TP DAILY [facility] Last Admin: 08/19/16 14:30 Dose: 1 applic A/P 85 year old woman with PMhx of ESRD on HD (MWF), Afib on A/C, HTN, CAD s/p stents, CHF, DM who presented s/p fall with multiple fractures. #ESRD on HD/Fluid overload tolerating dialysis well UF goal is 2.5L Continue HD 3x weekly dose all meds for intermittent HD #Entercoccus Bactermia To continue Vanco with HD for 5 more weeks get get tunneled central line for additional Abx #Intertrochanteric hip fx/Humerus Fracture s/p Gamma Nail Pain control physical therapy pending discharge to rehab Massimo Melissa DO
--- NOTE | 2016-08-19 15:37 | PN ---
Progress Note, Physician History of Present Illness: No complaints + cough noted No fever/ chills - Current Medication List Current Medications: Active Medications Acetaminophen (Tylenol -) 650 mg PO Q4H PRN PRN Reason: FEVER OR PAIN Last Admin: 08/19/16 14:20 Dose: 650 mg Atorvastatin Calcium (Lipitor -) 10 mg PO HS [facility] Last Admin: 08/18/16 21:58 Dose: 10 mg Cholecalciferol (Vitamin D3 -) 1,000 unit PO DAILY [facility] Last Admin: 08/19/16 14:20 Dose: 1,000 unit Docusate Sodium (Colace -) 100 mg PO BID [facility] Last Admin: 08/19/16 09:34 Dose: Not Given Furosemide (Lasix -) 80 mg PO DAILY [facility] Last Admin: 08/19/16 14:20 Dose: 80 mg Heparin Sodium (Porcine) (Heparin -) 5,000 unit SQ TID [facility] Last Admin: 08/19/16 14:07 Dose: Not Given Piperacillin Sod/Tazobactam Sod (Zosyn 2.25gm Ivpb (Pre-Docked)) 50 mls @ 100 mls/hr IVPB Q8H-IV DREW PRN Reason: Protocol Last Admin: 08/19/16 14:19 Dose: 100 mls/hr Insulin Aspart (Novolog Vial Sliding Scale -) 1 vial SQ ACHS [facility] PRN Reason: Protocol Last Admin: 08/19/16 11:17 Dose: Not Given Insulin Detemir (Levemir Vial) 20 units SQ AM [facility] Last Admin: 08/19/16 06:36 Dose: 20 unit Insulin Detemir (Levemir Vial) 10 units SQ HS [facility] Last Admin: 08/18/16 21:58 Dose: 10 units Loratadine (Claritin -) 10 mg PO DAILY PRN PRN Reason: allergy Multivit/Ca Carb/B Cmplx/FA/Prenat (Nephro-Annie -) 1 tablet PO DAILY [facility] Last Admin: 08/19/16 14:20 Dose: 1 tablet Nystatin (Mycostatin Cream -) 1 applic TP BID [facility] Last Admin: 08/19/16 09:34 Dose: Not Given Ondansetron HCl (Zofran Injection) 4 mg IVPB Q6H PRN PRN Reason: NAUSEA Last Admin: 07/31/16 23:13 Dose: 4 mg Oxycodone HCl (Roxicodone -) 5 mg PO Q4H PRN PRN Reason: PAIN Last Admin: 08/19/16 14:21 Dose: 5 mg Oxycodone HCl (Roxicodone -) 10 mg PO Q4H PRN PRN Reason: PAIN Last Admin: 08/19/16 06:06 Dose: 10 mg Polyethylene Glycol (Miralax (For Daily Use) -) 17 gm PO BID [facility] Last Admin: 08/19/16 09:34 Dose: Not Given Silver Sulfadiazine (Silvadene -) 1 applic TP DAILY [facility] Last Admin: 08/19/16 14:30 Dose: 1 applic - Objective Vital Signs: Vital Signs Temperature 97.4 F L 08/19/16 09:10 Pulse Rate 81 08/19/16 12:54 Respiratory Rate 18 08/19/16 12:54 Blood Pressure 113/48 08/19/16 12:54 O2 Sat by Pulse Oximetry (%) 97 08/19/16 08:00 Eyes: Yes: Conjunctiva Clear Cardiovascular: Yes: Regular Rate and Rhythm, S1, S2 Respiratory: Yes: CTA Bilaterally Gastrointestinal: Yes: Normal Bowel Sounds, Soft, Abdomen, Obese. No: Tenderness Integumentary: Yes: Other (+VAC in place) Labs: CBC, BMP 08/19/16 09:20 08/19/16 09:20 INR, PTT INR 1.18 (0.82-1.09) H 07/10/16 07:40 Assessment/Plan Enterococcal bacteremia Wound infection- polymicrobial ESRD For tunnelled catheter, outpatient antibiotic therapy Vancomycin 500mg at each HD X 19 days Zosyn 2.25gm IVPB q8h x 5 weeks
[2016-08-19] MEDS ORDERED: VANCOMYCIN 1 GRAM (PRE-DOCKED) 250 ML IVPB ONE (16:00)
[2016-08-19 16:34] VITALS: BP 91/56; PULSE 88
[2016-08-19] MEDS ORDERED: INSULIN (NOVOLOG) ASPART 100 UNITS/ML 10ML VIAL ONE (17:20)
== END 2016-08-19 19:05 | DRG 480 ==
LOC: JER 04:44 → JERBED 06:48 → J6S 09:00
PROVIDERS: ADMIT Internal Medicine; ATTEND Internal Medicine
PROC: 5A09557 Assistance with Respiratory Ventilation, Greater than 96 Consecutive Hours, Continuous Positive Airway Pressure (ICD-10-PCS; 2016-07-09)
PROC: 0QS606Z Reposition Right Upper Femur with Intramedullary Internal Fixation Device, Open Approach (ICD-10-PCS; principal; 2016-07-10 13:30)
PROC: 30233N1 Transfusion of Nonautologous Red Blood Cells into Peripheral Vein, Percutaneous Approach (ICD-10-PCS; 2016-07-26)
PROC: 0S990ZZ Drainage of Right Hip Joint, Open Approach (ICD-10-PCS; 2016-08-13)
PROC: 5A1D60Z (ICD-10-PCS; 2016-08-19)
PROC: 05HN33Z Insertion of Infusion Device into Left Internal Jugular Vein, Percutaneous Approach (ICD-10-PCS; 2016-08-19)
PROC: B514YZA Fluoroscopy of Left Jugular Veins using Other Contrast, Guidance (ICD-10-PCS; 2016-08-19)
DX: S72.141A Displaced intertrochanteric fracture of right femur, initial encounter for closed fracture (principal); N18.6 End stage renal disease; A41.51 Sepsis due to Escherichia coli [E. coli]; N39.0 Urinary tract infection, site not specified; E87.1 Hypo-osmolality and hyponatremia; I13.2 Hypertensive heart and chronic kidney disease with heart failure and with stage 5 chronic kidney disease, or end stage renal disease; J44.1 Chronic obstructive pulmonary disease with (acute) exacerbation; T81.31XA Disruption of external operation (surgical) wound, not elsewhere classified, initial encounter; K56.7 Ileus, unspecified; J80 Acute respiratory distress syndrome; W19.XXXA Unspecified fall, initial encounter; Y93.9 Activity, unspecified; Y92.89 Other specified places as the place of occurrence of the external cause; Y99.9 Unspecified external cause status; E11.9 Type 2 diabetes mellitus without complications; Z99.2 Dependence on renal dialysis; I25.10 Atherosclerotic heart disease of native coronary artery without angina pectoris; Z98.61 Coronary angioplasty status; E87.70 Fluid overload, unspecified; K59.00 Constipation, unspecified; I50.9 Heart failure, unspecified; E66.01 Morbid (severe) obesity due to excess calories; Z68.33 Body mass index [BMI] 33.0-33.9, adult; I48.91 Unspecified atrial fibrillation; G47.33 Obstructive sleep apnea (adult) (pediatric); I87.2 Venous insufficiency (chronic) (peripheral); R60.0 Localized edema; Z79.4 Long term (current) use of insulin; Y83.9 Surgical procedure, unspecified as the cause of abnormal reaction of the patient, or of later complication, without mention of misadventure at the time of the procedure; D63.1 Anemia in chronic kidney disease; D72.829 Elevated white blood cell count, unspecified; L89.151 Pressure ulcer of sacral region, stage 1; K31.89 Other diseases of stomach and duodenum; E78.5 Hyperlipidemia, unspecified
CPT/HCPCS: 36415; 36430; 36558; 36600; 71010-TC; 73030-TC-RT; 73060-TC-RT; 73070-TC-RT; 73523-TC; 74000-TC; 74247-TC; 76000-TC; 77001-TC; 80048; 80053; 81003; 81015; 82565; 82803; 83735; 84100; 84132; 84520; 85025; 85027; 85610; 85651; 86140; 86704; 86706; 86708; 86803; 86850; 86900; 86901; 86922; 87040; 87070; 87086; 87186; 87205; 87340; 93005; 93010; 93306-TC; 93971-TC; 94010; 94640; 94760; 97162-PG; 99285-25; C1751; G0480; J0885; J1644; J1756; P9058

== ENCOUNTER → 2016-10-17 | Day surgery (SDC) | payer OTHER | END | disposition home or self-care (01) | LOC: JRADIR 10:04 | PROVIDERS: ATTEND Internal Medicine | PROC: 02PY03Z Removal of Infusion Device from Great Vessel, Open Approach (ICD-10-PCS; principal; 2016-10-17) | DX: Z45.2 Encounter for adjustment and management of vascular access device (principal) | CPT/HCPCS: 36589 ==